=== PATIENT | female | born 1945 | race Caucasian/White ===

== ENCOUNTER → 2023-04-09 12:44 | Outpatient (REF) | payer MEDICARE, OTHER, SELFPAY | LOC: MRI 3T 12:44 | PROVIDERS: ATTENDING PHYSICIAN Orthopaedic Surgery; FAMILY PHYSICIAN Internal Medicine | DX: M25.561 Pain in right knee (principal) | CPT/HCPCS: 73721 ==

== ENCOUNTER → 2023-04-25 13:30 | Outpatient (REF) | payer MEDICARE, OTHER, SELFPAY ==
[2023-04-25 14:24] LABS: Blood Urea Nitrogen 26 mg/dl (7-17); Carbon Dioxide 29 mmol/L (22-30); Chloride 93 mmol/L (98-107); Glucose 91 mg/dl (70-99); Potassium 4.2 mmol/L (3.5-5.1); Sodium 128 mmol/L (135-145); eGFR > 60.00
[2023-04-25 14:30] LABS: NT-proBNP 1670 pg/ml
== END ==
LOC: REG 13:30
PROVIDERS: ATTENDING PHYSICIAN Internal Medicine Cardiovascular Disease; FAMILY PHYSICIAN Internal Medicine
DX: I42.8 Other cardiomyopathies (principal); I10 Essential (primary) hypertension; R79.89 Other specified abnormal findings of blood chemistry
CPT/HCPCS: 36415; 80048; 83880

== ENCOUNTER → 2023-04-27 13:55 | Outpatient (REF) | payer MEDICARE, OTHER, SELFPAY ==
[2023-04-27 16:24] LABS: Blood Urea Nitrogen 30 mg/dl (7-17); Calcium 8.7 mg/dl (8.4-10.2); Carbon Dioxide 28 mmol/L (22-30); Chloride 93 mmol/L (98-107); Glucose 83 mg/dl (70-99); Potassium 3.9 mmol/L (3.5-5.1); Sodium 127 mmol/L (135-145); eGFR 56.95
== END ==
LOC: REG 13:55
PROVIDERS: ATTENDING PHYSICIAN Internal Medicine Cardiovascular Disease; FAMILY PHYSICIAN Internal Medicine
DX: I10 Essential (primary) hypertension (principal); I42.8 Other cardiomyopathies
CPT/HCPCS: 36415; 80048

== ENCOUNTER 2023-05-14 13:29 | Emergency (ER) | payer MEDICARE, OTHER, SELFPAY ==
[2023-05-14 13:39] VITALS: BP 116/74
[2023-05-14 16:00] VITALS: BP 141/75
[2023-05-14 16:07] LABS: % Basophils 0.8 % (0-2); % Eosinophils 0.8 % (0-6); % Immature Granulocytes 0.3 % (0-0.5); % Lymphocytes 27.6 % (20.5-51.1); % Monocytes 9.9 % (1.7-9.3); % Neutrophils 60.6 % (42.2-75.2); Absolute Basophils 0.1 10^3/uL (0-0.2); Absolute Eosinophils 0.1 10^3/uL (0-0.7); Absolute Lymphocytes 1.8 10^3/uL (1.2-3.4); Absolute Monocytes 0.6 10^3/uL (0.1-0.6); Absolute Neutrophils 3.9 10^3/uL (1.4-6.5); Hematocrit 26.5 % (37.0-47.0); Hemoglobin 9.4 g/dL (12.0-16.0); Mean Corp Hgb Conc. 35.5 g/dL (33.0-37.0); Mean Corpuscular Hgb 33.3 pg (27.0-31.0); Mean Platelet Volume 9.2 fL (7.4-10.4); Nucleated Red Blood Cells % 0 %; Platelet Count 331 10^3/uL (130-400); Red Blood Cell Count 2.82 10^6/uL (4.20-5.40); Red Cell Dist. Width 14.4 % (11.5-14.5); White Blood Cell Count 6.5 10^3/uL (4.8-10.8)
[2023-05-14 16:26] LABS: NT-proBNP 1820 pg/ml
[2023-05-14 16:28] LABS: Blood Urea Nitrogen 26 mg/dl (7-17); Calcium 8.8 mg/dl (8.4-10.2); Carbon Dioxide 25 mmol/L (22-30); Chloride 95 mmol/L (98-107); Glucose 103 mg/dl (70-99); Potassium 3.7 mmol/L (3.5-5.1); Sodium 128 mmol/L (135-145); eGFR > 60.00
--- NOTE | 2023-05-14 17:10 | ED.GENMED ---
History of Present Illness
General
Chief Complaint: Skin Problem
Source: patient
Exam Limitations: none
Time Seen by Provider: 05/14/23 14:01
Travel History
Have you had any contact with someone who has COVID-19?: No
Do you have any symptoms of coronavirus? Fever > 100 degrees, chills, cough, shortness of breath, sore throat, loss of taste or smell, muscle aches, or headache?: No
History of Present Illness
History of Present Illness:
Patient had a fall in the [facility] in March. Since then she has had some increased leg swelling bilaterally. She has been followed by her respiratory support technician and primary care physician. Diuretic dose was increased this week. She denies chest pain or
shortness of breath. She is concerned about a cellulitis. Her acupuncture physician recommended evaluation today after looking at her legs.
Past History
Past History
ED Past Medical History: Arrthythmia (afib-no anticoags), CAD, CHF, HTN and Hypercholesterolemia
ED Past Surgical History: Cardiac (ablations)
Social History
Employment: Retired
Review of Systems
Review of Systems
All Other Systems: Not applicable
Constitutional: Denies fever
Respiratory: Denies trouble breathing
Cardiac: Denies chest pain
Phy Exam
Physical Exam
Physical Exam:
GENERAL: Alert and oriented in no apparent distress
EYE: Orbits normal.
NECK: Supple
CARDIAC: Regular rate and rhythm without any obvious murmurs.
LUNGS: Clear breath sounds,normal
ABDOMEN: Soft, without focal tenderness or distention
NEUROLOGICAL: Alert and oriented , grossly non-focal
SKIN: Warm and dry, no rash or lesion, no discoloration, skin intact.
MUSCULOSKELETAL: Moderate bilateral lower extremity edema but minimal pitting. Some tightness to both calves. Minimal erythema to the left lower leg. Good distal pulses and color.
PSYCH: Normal and appropriate interaction.
Course
Orders/Labs/Results
Orders:
Orders
05/14/23 14:19
US Periph Venous LOWER Ext Zackary Urgent
Comment:
Reason For Exam: swelling
05/14/23 14:20
CR Chest - 2 Views Urgent
Comment:
Reason For Exam: bilateral leg swelling
05/14/23 16:00
Basic Metabolic Panel Urgent
Complete Blood Count/With Diff Urgent
NT-proBNP Urgent
05/14/23 17:58
Doxycycline [Vibramycin] 100 mg PO NOW STA
Abnormal Lab Results
05/14/23
16:00
RBC 2.82 L 10^6/uL
(4.20-5.40)
Hgb 9.4 L g/dL
(12.0-16.0)
Hct 26.5 L %
(37.0-47.0)
MCH 33.3 H pg
(27.0-31.0)
Monocytes % 9.9 H %
(1.7-9.3)
Sodium 128 L mmol/L
(135-145)
Chloride 95 L mmol/L
(98-107)
BUN 26 H mg/dl
(7-17)
Glucose 103 H mg/dl
(70-99)
05/14/23 16:00
05/14/23 16:00
Vital Signs
Initial and Last Documented VS:
Initial Vital Signs
Temp Pulse Resp BP Pulse Ox
97.5 F 71 18 116/74 98
05/14/23 13:39 05/14/23 13:39 05/14/23 13:39 05/14/23 13:39 05/14/23 13:39
Last Documented Vital Signs
Temp Pulse Resp BP Pulse Ox
97.5 F 71 18 116/74 98
05/14/23 13:39 05/14/23 13:39 05/14/23 13:39 05/14/23 13:39 05/14/23 13:39
*Radiology
Radiology exam reviewed: radiology read reviewed (Small effusion/CHF) and other (Negative leg ultrasounds)
*Pulse Oximetry
Patient hypoxic: no
*Critical Care Note
Total Time (30-74mins, 75-104mins- exclusive of procedures): Not Applicable
Update Note
Update Note:
Clinically patient is not in any florid CHF. She increased her diuretic dose this week. Do not feel pushing the diuretic dose further at this time is warranted. She is anemic and a rectal exam will be done. Doubt cellulitis although patient is
very concerned about this and with the minimal erythema we will cover her with antibiotics.
Patient with multiple issues.
1. New anemia. Drop in hemoglobin about 2 g from late last year. However clinically stable not describing melanotic or dark school and rectal exam with light stool testing negative. Warrants follow-up
2. Hyponatremia.... Stable. No acute changes in management but recheck and follow-up
3. Mild CHF. Patient is clinically in no distress ambulated without difficulty or shortness of breath. proBNP is stable. Patient had an increased dose of diuretic this week. Would not tar heat exchanger cleaner at this time
4. Redness to lower extremities. Clinically doubt cellulitis more likely dermatitis from the edema however patient would feel much more comfortable with antibiotic coverage which is not unreasonable.
ED Attending Note
-
Portions of this chart may have been created with voice recognition software.� Occasional wrong word or��sound alike� substitutions may have occurred due to the inherent limitations of voice recognition software.
Discharge Plan
Departure
Discharge Problem:
Lower extremity erythema, Lower extremity edema/mild CHF, Hyponatremia, Anemia
Instructions: Dependent Edema (DC), Skin Rash (DC), Hyponatremia (DC), Normocytic Normochromic Anemia (DC)
Prescriptions:
New
doxycycline hyclate 100 mg capsule
100 mg PO BID 10 Days Qty: 20 0RF
No Action
ascorbic acid (vitamin C) [Vitamin C] 1,000 MG tablet
1,000 mg PO DAILY
lecithin 1,200 MG capsule
1,200 mg PO DAILY
vitamin B complex [Balanced B-100] 1 TAB tablet
1 tab PO DAILY
magnesium 250 MG tablet
250 mg PO BID
selenium 100 MCG tablet
100 mcg PO DAILY
Ca-D3-mag ea-rmfx-dkz-moy-bor [Calcium 600-D3 Plus (mag-zinc)] 1 EACH tablet
1 ea PO DAILY
L.acidoph, paracasei,B. lactis 1 EACH capsule
1 ea PO DAILY
sour monroe extract [Tart Monroe Extract] 1,000 MG capsule
1,000 mg PO BID
cranberry conc-ascorbic acid 1 EACH capsule
4,200 mg PO BID
metoprolol succinate 25 MG tablet extended release 24 hr
12.5 mg PO QPM Qty: 0 0RF
rivaroxaban [Xarelto] 20 MG tablet
20 mg PO QPM Qty: 0 0RF
Rx Instructions:
Take your dose today at 6pm 07/21
Referrals:
Robb Rubio MD [Family Provider] - Follow up in 2-3 days
Activity Restrictions/Additional Instructions:
The antibiotic prescription was called into your pharmacy
Recommend repeat blood count and sodium level done late this week through your primary physician
Interventions
Interventions:
*General Assessment Last Done: 05/14/23 14:47
*ED COVID-19 Vaccine History Last Done: 05/14/23 13:39
[2023-05-14 18:22] VITALS: BP 153/80
[2023-05-14] MEDS: VIBRAMYCIN 100 MG PO (18:29)
== END 2023-05-14 19:30 | disposition home or self-care (01) ==
LOC: EMR 13:29
PROVIDERS: EMERGENCY PHYSICIAN Emergency Medicine; FAMILY PHYSICIAN Internal Medicine
DX: E87.1 Hypo-osmolality and hyponatremia (principal); D64.9 Anemia, unspecified; R60.0 Localized edema; W19.XXXA Unspecified fall, initial encounter; I11.0 Hypertensive heart disease with heart failure; I50.9 Heart failure, unspecified; I48.91 Unspecified atrial fibrillation; I25.10 Atherosclerotic heart disease of native coronary artery without angina pectoris; E78.00 Pure hypercholesterolemia, unspecified; Z79.01 Long term (current) use of anticoagulants; Z88.3 Allergy status to other anti-infective agents; Z88.0 Allergy status to penicillin; Z88.8 Allergy status to other drugs, medicaments and biological substances
CPT/HCPCS: 99284; 71046; 80048; 83880; 85025; 93970

== ENCOUNTER 2023-05-17 22:03 | Inpatient (IN) | payer MEDICARE, OTHER, SELFPAY ==
[2023-05-17] VITALS (8 sets, daily range): BP systolic 139–183; BP diastolic 57–93; BMI 22.4
--- NOTE | 2023-05-17 14:47 | ED.GENMED ---
History of Present Illness
General
Chief Complaint: Cardiac Symptoms
Source: patient
Exam Limitations: none
Time Seen by Provider: 05/17/23 14:28
Nursing documentation reviewed up to this point in time: agreed with
Travel History
Have you had any contact with someone who has COVID-19?: No
Do you have any symptoms of coronavirus? Fever > 100 degrees, chills, cough, shortness of breath, sore throat, loss of taste or smell, muscle aches, or headache?: No
History of Present Illness
History of Present Illness:
Patient is a 78-year-old female with past medical history of cardiomyopathy celiac disease c Takotsubo cardiomyopathy pancreatitis 2006 hypertension nephrosis as a child hyperlipidemia paroxysmal A-fib sent in by Dr. Kiera Diaz for admission
for acute on chronic heart failure with preserved ejection fraction. Patient was called and: No reports that patient has had abdominal pain with bloating and fullness and new pleural effusion new anemia and worsening hyponatremia. It is documented
in the past she has responded well to diuretic therapy but this is not the case currently. They are requesting admission to the hospital with nephrology consult due to worsening hyponatremia and recommend GI for abdominal pain and bloating and new
onset anemia. Concern for possible malignancy. Patient presents awake alert. She does complain of increasing lower extremity swelling and pain in her legs because of the swelling. She does complain of increased dyspnea on exertion. She feels
very tired and fatigued. She denies any chest pain shortness of breath.
In review of records patient recently had a chest x-ray as an outpatient May 13, 3 days ago which shows COPD mild congestive heart failure small to moderate left and right trace pleural effusion
Past History
Past History
ED Past Medical History: Arrthythmia (afib-no anticoags), CAD, CHF, HTN and Hypercholesterolemia
ED Past Surgical History: Cardiac (ablations)
Social History
Personal:
Living: with family
Employment: Retired
Review of Systems
Review of Systems
Allergies reviewed?: Yes
All Other Systems: ROS reviewed and negative except as documented in HPI and ROS
Constitutional: Reports fatigue
EENT: Reports no symptoms
Respiratory: Reports trouble breathing and other (+ GILLIAM )
Cardiac: Reports no symptoms
ABD/GI: Reports no symptoms
: Reports no symptoms
Musculoskeletal: Reports other (increased l/e swelling )
Skin: Reports no symptoms
Psychiatric: Reports no symptoms
Phy Exam
General Physical Exam
General Presentation: no apparent distress
General age: appears stated age
General Skin: warm and dry
General Habitus: elderly
General Hydration: appears well hydrated
ENT Exam
ENT Exam: EOMI
Cardiovascular Exam
Cardiovascular Exam: regular rate/rhythm, no murmur and normal peripheral pulses
Pulmonary Exam
Pulmonary Exam: other (dec b/l )
Neurological Exam
Neurological Exam: alert and oriented x3
Musculoskeletal Exam
Musculoskeletal Exam: other (Patient has bilateral lower extremity pitting edema up to thighs)
Skin Exam
Skin Exam: normal color and warm/dry
Course
Orders/Labs/Results
Orders:
Orders
05/17/23 14:39
Cardiac Monitoring- Treatment ONCE
IV Insert/Care/Rem.- Treatment PRN
05/17/23 15:02
Complete Blood Count/With Diff Urgent
Comprehensive Metabolic Panel Urgent
Ferritin Routine
Comment: ADD ON
Iron Urgent
Comment: ADD ON
Lactic Acid Urgent
Pro-BNP [NT-proBNP] Urgent
Total Iron Binding Urgent
Comment: ADD ON
Troponin I Urgent
Blood Culture Q30M
LUISITO Source: Blood/Venous
Specimen Description:
Date Specimen was Collected: 05/17/23
Time Specimen was Collected: 14:49
05/17/23 15:21
Blood Culture Q30M
LUISITO Source: Blood/Venous
Specimen Description:
Date Specimen was Collected: 05/17/23
Time Specimen was Collected: 14:49
05/17/23 15:57
Chest [CR Chest - 2 Views ] Urgent
Comment:
Reason For Exam: sob
05/17/23 16:29
Furosemide [Lasix] 40 mg IV NOW STA
05/17/23 16:45
Electrocardiogram (*1) Stat
Reason for Study: Other
Other Reason for Exam: chest pain
EKG- Treatment ONCE
05/17/23 16:54
Add On- LAB Routine
Tests Added?: iron studies (TIBC, % sat, serum iron, ferritin)
05/18/23 06:00
Echo 2D MMode Color/Doppler IN AM
Reason for Study: CHF, history of takotsubo
Abnormal Lab Results
05/17/23
15:02
RBC 3.15 L 10^6/uL
(4.20-5.40)
Hgb 10.5 L g/dL
(12.0-16.0)
Hct 30.9 L %
(37.0-47.0)
MCH 33.3 H pg
(27.0-31.0)
RDW 14.6 H %
(11.5-14.5)
Monocytes % 9.5 H %
(1.7-9.3)
Sodium 129 L mmol/L
(135-145)
Chloride 95 L mmol/L
(98-107)
BUN 34 H mg/dl
(7-17)
Albumin 3.4 L g/dl
(3.5-5.0)
05/17/23 15:02
05/17/23 15:02
Vital Signs
Initial and Last Documented VS:
Initial Vital Signs
Temp Pulse Resp BP Pulse Ox
97.9 F 73 18 183/76 100
05/17/23 13:59 05/17/23 13:59 05/17/23 13:59 05/17/23 13:59 05/17/23 13:59
Last Documented Vital Signs
Temp Pulse Resp BP Pulse Ox
97.9 F 65 13 176/65 96
05/17/23 13:59 05/17/23 16:00 05/17/23 16:00 05/17/23 16:00 05/17/23 16:00
MDM/Problems Addressed
Differential Diagnosis Includes:
Not limited to congestive heart failure, hyponatremia electrolyte abnormality
MDM/Problems Addressed:
As documented patient is an 78-year-old female with chronic CHF with preserved ejection fraction with increasing lower extremity swelling abdominal bloating fullness increased dyspnea on exertion. Patient was sent by cardiology today. She presents
awake alert no acute distress patient was seen by cardiology. Will give dose of Lasix now.
Patient denies any fevers and is afebrile with a normal white count hemoglobin mildly low at 10.5 improved from prior. Sodium is low at 129 has been in the high 120s since April 25. No complaints of chest pain, unremarkable trop. BNP is
elevated at 2730 which is higher than results from AprilMay 13
*Radiology
Radiology exam reviewed: radiology read reviewed
*Pulse Oximetry
Patient hypoxic: no
*EKG
Interpreted by ED Provider?: Yes
Heart Rate: 75
Rate: normal
Rhythm: sinus
Ischemia: non-specific ST changes
*Critical Care Note
Total Time (30-74mins, 75-104mins- exclusive of procedures): Not Applicable
Data Reviewed
Review of Other/Old Records Reveals: Radiology Studies
Source: patient
Patient Management
Discussion with other providers: Tile Edger (pt alyssa by cardiology , [place])
ED Attending Note
-
Portions of this chart may have been created with voice recognition software.� Occasional wrong word or��sound alike� substitutions may have occurred due to the inherent limitations of voice recognition software.
Discharge Plan
Departure
Patient Disposition: Admit
Date of Disposition: 05/17/23
Time of Disposition: 16:45
Admit to: Telemetry
Admit to doctor: hospitalist
Presentation/result/management discussed w/ accepting MD/DO: Hospitalist
Patient with high blood pressure during this ER visit?: Yes
Condition: Fair
Covid-19: Not Applicable
Discharge Problem:
Congestive heart failure (CHF), Bilateral edema of lower extremity, Acute hyponatremia
Prescriptions:
No Action
ascorbic acid (vitamin C) [Vitamin C] 1,000 MG tablet
1,000 mg PO DAILY
Patient Comments:
05/17/2023, has not taken since starting abx.
lecithin 1,200 MG capsule
1,200 mg PO DAILY
Patient Comments:
05/17/2023, has not taken since starting abx.
magnesium 250 MG tablet
250 mg PO HS
Patient Comments:
05/17/2023, has not taken since starting abx.
selenium 100 MCG tablet
100 mcg PO DAILY
Patient Comments:
05/17/2023, has not taken since starting abx.
Ca-D3-mag vy-dkzv-vex-moy-bor [Calcium 600-D3 Plus (mag-zinc)] 1 EACH tablet
1 tab PO DAILY
Patient Comments:
05/17/2023, has not taken since starting abx.
Tart Monroe Extract 1,000 MG capsule
1,000 mg PO BID
Patient Comments:
05/17/2023, has not taken since starting abx.
cranberry conc-ascorbic acid 1 EACH capsule
4,200 mg PO BID
Patient Comments:
05/17/2023, has not taken since starting abx.
metoprolol succinate 25 MG tablet extended release 24 hr
12.5 mg PO QPM Qty: 0 0RF
furosemide 40 mg Tablet
40 mg PO HS
hydralazine 25 mg Tablet
25 mg PO BID
aspirin 81 mg Tablet,Delayed Release (Dr/Ec)
81 mg PO HS
vitamin B complex Tablet
1 tab PO DAILY
Patient Comments:
05/17/2023, has not taken since starting abx.
doxycycline hyclate 100 mg Tablet
100 mg PO BID
Patient Comments:
05/17/2023, pt. filled this med. on 05/15/2023 and is instructed to take one tablet BID for 10 days.
pitavastatin calcium 1 mg Tablet
1 mg PO MOWEFR@0800
Magnesium + Calcium + Zinc
2 tab PO HS
Patient Comments:
05/17/2023, has not taken since starting abx.
Referrals:
Robb Rubio MD [Family Provider] -
Interventions
Interventions:
*Risk Screen - Suicide Last Done: 05/17/23 15:05
*General Assessment Last Done: 05/17/23 15:05
*Neglect/Abuse Screening Last Done: 05/17/23 15:05
ED- Fall Risk Assessment Last Done: 05/17/23 15:05
*ED COVID-19 Vaccine History Last Done: 05/17/23 15:41
ED- Pulmonary Assessment Last Done: 05/17/23 15:05
ED- Cardiac Assessment Last Done: 05/17/23 15:05
--- NOTE | 2023-05-17 14:49 | EDRN ---
Ismael BATES in room w/ pt.
[2023-05-17 15:16] LABS: % Basophils 0.8 % (0-2); % Eosinophils 0.8 % (0-6); % Immature Granulocytes 0.5 % (0-0.5); % Lymphocytes 22.7 % (20.5-51.1); % Monocytes 9.5 % (1.7-9.3); % Neutrophils 65.7 % (42.2-75.2); Absolute Basophils 0.1 10^3/uL (0-0.2); Absolute Eosinophils 0.1 10^3/uL (0-0.7); Absolute Lymphocytes 1.5 10^3/uL (1.2-3.4); Absolute Monocytes 0.6 10^3/uL (0.1-0.6); Absolute Neutrophils 4.3 10^3/uL (1.4-6.5); Hematocrit 30.9 % (37.0-47.0); Hemoglobin 10.5 g/dL (12.0-16.0); Mean Corpuscular Hgb 33.3 pg (27.0-31.0); Mean Corpuscular Volume 98.1 fL (81.0-99.0); Mean Platelet Volume 9.3 fL (7.4-10.4); Nucleated Red Blood Cells % 0 %; Platelet Count 358 10^3/uL (130-400); Red Blood Cell Count 3.15 10^6/uL (4.20-5.40); Red Cell Dist. Width 14.6 % (11.5-14.5); White Blood Cell Count 6.5 10^3/uL (4.8-10.8)
[2023-05-17 15:25] LABS: Lactic Acid 0.7 mmol/L (0.7-2.0)
[2023-05-17 15:38] LABS: ALT (SGPT) 19 U/L (0-35); AST (SGOT) 36 U/L (14-36); Albumin 3.4 g/dl (3.5-5.0); Alkaline Phosphatase 99 U/L (38-126); Blood Urea Nitrogen 34 mg/dl (7-17); Calcium 8.7 mg/dl (8.4-10.2); Carbon Dioxide 29 mmol/L (22-30); Chloride 95 mmol/L (98-107); Estimated Creatinine Clearance 43 ml/min; Glucose 97 mg/dl (70-99); NT-proBNP 2730 pg/ml; Potassium 3.7 mmol/L (3.5-5.1); Sodium 129 mmol/L (135-145); Total Bilirubin 0.4 mg/dl (0.2-1.3); Total Protein 7.3 g/dl (6.3-8.2); Troponin I 0.022 ng/ml; eGFR 56.95
--- NOTE | 2023-05-17 16:27 | W.PN.CARDCBS ---
Addendum entered and electronically signed by Kiera Diaz MD 05/17/23 17:24:
I saw and examined the patient.
The Industrial Conveyor Belt Repairer's note was reviewed and I agree with the note.
Please refer to office note.
Comment: She presented to the office with shortness of breath and worsening lower extremity edema in the setting of failing oral diuretics and hyponatremia. In addition she has abdominal bloating and new anemia.
Await echo. Continue diuresis. Follow labs.
Rule out ascites.
Exclude nephrotic type syndrome given distant history of nephrosis. Would consider CT scan of chest abdomen and pelvis given features are a bit atypical to exclude malignancy especially in the setting of new anemia.
Heme test stools. Check iron studies.
Original Note:
Today's Communication / Plan
-
IV diuresis
echo in AM
consider eval for thoracentesis pending repeat CXR
evaluate anemia, iron studies ordered
follow hypoNa with diuresis
PT/OT
Impression / Plan
-
Primary Financial Services Director: Dr. Kiera Diaz
Assessment:
Presentation with LE edema, GILLIAM, abd bloating
Acute on chronic HFpEF
Anemia
Hyponatremia
LE cellulitis diagnosed 05/14/23
R knee and L wrist fractures 03/2023 while in [facility]
History of paroxysmal atrial fibrillation s/p PVI 2016
History of takotsubo CM with recovery in EF
HTN
HLD
History of hydronephrosis as child
History of lung nodule
Celiac disease
Insomnia
ECHO 10/25/22: EF 63%, stage II diastolic dysfunction, mild to moderate MR, mild TR, PAP 44 mmHg
Plan:
-Patient was seen in cardiology office today due to worsening lower extremity edema, shortness of breath, abdominal bloating, and felt to be in acute heart failure and referred to the ER for further evaluation. proBNP is the highest it is ever been
at 2730.
-Chest x-ray pending from 05/16, x-ray from 05/13 with small to moderate left effusion and trace right effusion. Pending results, consider evaluation for thoracentesis through interventional radiology
-She did not respond to increase in OP diuretic dosing after ER visit 05/13. due to appts today, did not take her lasix this AM. 40 mg IV Lasix to be given in the emergency room. She is on 40 mg p.o. Lasix daily as an outpatient. consider GI eval if
abd bloating not improved post diuresis
-CHF education
-Last echo from 10/2022 with results as above, will repeat
-EKG pending. follow on tele while admitted
-she remains on doxycycline, started by ER 05/14/23 for possible cellulitis. Peripheral US negative for DVT 05/14/23.
-Workup of anemia per primary service, improving at 10.5 on 05/16, was 9.5 on 05/13. She has tested heme-negative in the ER 05/13 as well as in primary care physician's office. Check iron studies
-Workup of hyponatremia per primary service. Follow with diuresis, consider nephrology evaluation
-She has been completing PT/OT as an outpatient after recent knee and wrist fractures. Continue
-d/w ER CELL OPERATOR
Progress Note - Financial Services Director
Subjective
Date of Service: May 17, 2023
reports GILLIAM, LE edema, abd bloating.
Objective
Labs:
05/17/23 15:02
05/17/23 15:02
Labs
Hgb 10.5 g/dL (12.0-16.0) L 05/17/23 15:02
Hct 30.9 % (37.0-47.0) L 05/17/23 15:02
Plt Count 358 10^3/uL (130-400) 05/17/23 15:02
Sodium 129 mmol/L (135-145) L 05/17/23 15:02
Potassium 3.7 mmol/L (3.5-5.1) 05/17/23 15:02
BUN 34 mg/dl (7-17) H 05/17/23 15:02
Creatinine 1.0 mg/dL (0.6-1.0) 05/17/23 15:02
Glucose 97 mg/dl (70-99) 05/17/23 15:02
Troponins
05/17/23
15:02
Troponin I 0.022
Vital Signs and I&O:
Vital Signs
Temp Pulse Resp BP Pulse Ox
97.9 F 65 13 176/65 96
05/17/23 13:59 05/17/23 16:00 05/17/23 16:00 05/17/23 16:00 05/17/23 16:00
Vital Signs
Temp Pulse Resp BP Pulse Ox
97.9 F 65 13 176/65 96
05/17/23 13:59 05/17/23 16:00 05/17/23 16:00 05/17/23 16:00 05/17/23 16:00
Physical Exam
Physical Exam
GEN: No distress, awake, alert, oriented x3
HEENT: supple, anicteric, mmm, eomi
LUNGS: decreased BS LLB, no wheezes
CV: Reg, S1/S2, no murmur
ABD: soft, BS+, NT/ND
EXT: No cyanosis, clubbing. 3+ edema of B/L LE
NEURO: Gross non-focal
SKIN: Warm, pink, dry. No rash. mild erythema of B/L LE
[2023-05-17] MEDS: LASIX 40 MG IV (17:15)
[2023-05-17 17:42] LABS: Iron 45 ug/dl (37-170)
--- NOTE | 2023-05-17 17:45 | EDRN ---
Pt voided in BR (pt states a large amount) but missed the receptacle to measure the quantity voided.
[2023-05-17 17:51] LABS: Percent Saturation 15 % (20-50); Total Iron Binding Capacity 289 ug/dl (265-497)
[2023-05-17 18:12] LABS: Ferritin 27.9 ng/ml (11.1-264.0)
--- NOTE | 2023-05-17 21:46 | HPS.HSE ---
Family Physician
-
Family Physician: Kodak Rubio
Chief Complaint
-
shortness of breath
History of Present Illness
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 Qureshi
S[place]e for CHF exacerbation. Patient has been having increased lower extremity edema and increased shortness of breath on exertion progressing for the past 2 months. She has gained 15 pounds since that time. She has dry cough but denies any
chest pain or dizziness.
She is also had increased abdominal distention and bloating and fullness which is improving with IV Lasix. She denies any nausea or vomiting, blood in the stool or black stool. She has been following with Dr. Luis for celiac disease.
3 days ago she came to the emergency room for bilateral lower extremity swelling particularly the left leg with erythema of the left leg. She was diagnosed with cellulitis and started on doxycycline with improvement in the erythema.
She was drinking alcohol but stopped drinking over the past month. Denies any smoking.
Medical History
Past Medical History
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
Past Surgical History: Reports None
Social History
Tobacco: Non-smoker
Alcohol: Daily
Drug: None
Family History
Family History: Not pertinent
Allergies / Home Medications
Allergies reflects when Allergies were last updated in [employer].
Home Medications with original date entered in [employer]
Allergy/Medication List:
Allergies
Allergy/AdvReac Type Severity Reaction Status Date / Time
Antihistamines Allergy Unknown Verified 05/14/23 13:45
Cephalosporins Allergy Rash Verified 05/14/23 13:45
diphenhydramine Allergy Unknown Verified 05/14/23 13:45
hydrochlorothiazide Allergy Rash Verified 05/14/23 13:45
penicillin G Allergy Rash Verified 05/14/23 13:45
penicillin V Allergy Rash Verified 05/14/23 13:45
Penicillins Allergy Rash Verified 05/14/23 13:45
Home Medications
Ca 600 mg-D3 20 mcg-mag oxide 50 rh-Fd-lcxqya-manganese-boron tablet (Calcium 600-D3 Plus (mag-zinc)) 1 tab PO DAILY 07/20/16
ascorbic acid (vitamin C) 1,000 mg tablet (Vitamin C) 1,000 mg PO DAILY 07/20/16
cranberry concentrate-ascorbic acid 4,200 mg-20 mg capsule 4,200 mg PO BID 07/20/16
lecithin 1,200 mg capsule 1,200 mg PO DAILY 07/20/16
magnesium 250 mg tablet 250 mg PO HS 07/20/16
selenium 100 mcg tablet 100 mcg PO DAILY 07/20/16
sour monroe extract 1,000 mg capsule (Tart Monroe Extract) 1,000 mg PO BID 07/20/16
metoprolol succinate 25 mg tablet,extended release 24 hr 12.5 mg PO QPM ##0 07/21/16
Magnesium + Calcium + Zinc 2 tab PO HS 05/17/23
aspirin 81 mg tablet,delayed release 81 mg PO HS 05/17/23
doxycycline hyclate 100 mg tablet 100 mg PO BID 05/17/23
furosemide 40 mg tablet 40 mg PO HS 05/17/23
hydralazine 25 mg tablet 25 mg PO BID 05/17/23
pitavastatin calcium 1 mg tablet 1 mg PO MOWEFR@0800 05/17/23
vitamin B complex 1 tab PO DAILY 05/17/23
Review of Systems
-
History Source: Patient
A 12 point ROS was completed and negative except as noted: Yes
Constitutional: Reports No Symptoms
EENT: Reports No Symptoms
Respiratory: Reports See HPI
Cardiac: Reports See HPI
Abdomen/GI: Reports See HPI
: Reports No Symptoms
Musculoskeletal: Reports No Symptoms
Skin: Reports No Symptoms
Neurological: Reports No Symptoms
Endocrine: Reports No Symptoms
Hematologic/Lymphatic: Reports No Symptoms
Psych: Reports No Symptoms
Physical Exam
Vital Signs
Vital Signs
Temp Pulse Resp BP Pulse Ox
97.9 F 70 12 140/87 99
05/17/23 13:59 05/17/23 21:15 05/17/23 21:15 05/17/23 21:00 05/17/23 20:15
Physical Exam
General: Well Developed, Well Nourished and No Apparent Distress
HEENT: NormoCephalic, Moist mucous membranes and Atraumatic
Respiratory: Clear
Cardiac: S1/S2, Regular Rhythm and Peripheral Edema; No Murmur or Rub
GI: Soft, Non Tender, Non Distended and Normal Bowel Sounds; No Organomegaly
Rectal: Deferred by Provider
Musculoskeletal: No Clubbing, No Cyanosis and No Edema
Skin: No Rash
Neuro: Nonfocal/grossly intact
Laboratory Results
-
05/17/23 15:02
05/17/23 15:02
Laboratory Results
Lactic Acid 0.7 mmol/L (0.7-2.0) 05/17/23 15:02
Total Bilirubin 0.4 mg/dl (0.2-1.3) 05/17/23 15:02
AST 36 U/L (14-36) 05/17/23 15:02
ALT 19 U/L (0-35) 05/17/23 15:02
Alkaline Phosphatase 99 U/L (38-126) 05/17/23 15:02
Troponin I 0.022 ng/ml 05/17/23 15:02
Data Reviewed
-
Lab Data: Labs Reviewed by me
Old Records: Reviewed
Impression/Plan
-
IMPRESSION:
PLAN:
# Acute on chronic HFpEF exacerbation with pleural effusion/ascites
# Mild to moderate left pleural effusion
# History of Takotsubo cardiomyopathy
-Chest x-ray shows mild to moderate left and trace right pleural effusion
-Check I's and O's and daily weights
-40 IV Lasix daily
-Check echo
-Cardiology following
-IR consulted for thoracentesis
-Abdominal distention improving with diuresis, consider abdominal imaging to evaluate for ascites if persistent
# Chronic macrocytic anemia likely due to anemia of chronic disease
-Recently tested heme-negative in the ER on 05/13 as well as in primary care physician's office
-Hemoglobin relatively stable over the past 2 years and no suggestion of bleeding
-Hemoglobin stable 10.5
-Check Hemoccult, iron studies, B12, folate
# Mild chronic hyponatremia in the setting of CHF exacerbation
-Observe with diuresis
-Fluid restriction 40 ounces
# Resolving cellulitis of left lower extremity
-Negative for DVT on 05/13
-Currently on doxycycline which was started on 05/13
Paroxysmal atrial fibrillation
-Continue metoprolol
-Continue aspirin
Essential hypertension
-Continue hydralazine
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
Celiac disease
History of pancreatitis
Hyperlipidemia
-Continue statin
Full code
DVT prophylaxis�heparin
Cardiac diet
[2023-05-18] VITALS (12 sets, daily range): BP systolic 68–171; BP diastolic 35–82; BMI 20.2
[2023-05-18] MEDS: TOPROL XL 12.5 MG PO ×2 (00:21→18:08)
[2023-05-18] MEDS: VIBRAMYCIN 100 MG PO ×3 (00:21→20:35)
[2023-05-18] MEDS: MAG-TAB SR 84 MG PO ×2 (00:22→22:26)
[2023-05-18] MEDS: ASPIR LOW (ENTERIC COATED) 81 MG PO ×2 (00:22→22:25)
[2023-05-18 03:31] LABS: Folate > 20.0 ng/ml (2.76-20); Vitamin B12 881 pg/ml (239-931)
[2023-05-18 06:49] LABS: % Basophils 1.1 % (0-2); % Eosinophils 2.6 % (0-6); % Immature Granulocytes 0.2 % (0-0.5); % Lymphocytes 35.7 % (20.5-51.1); % Neutrophils 48.4 % (42.2-75.2); Absolute Basophils 0.1 10^3/uL (0-0.2); Absolute Eosinophils 0.2 10^3/uL (0-0.7); Absolute Monocytes 0.7 10^3/uL (0.1-0.6); Absolute Neutrophils 2.8 10^3/uL (1.4-6.5); Hematocrit 26.3 % (37.0-47.0); Hemoglobin 8.9 g/dL (12.0-16.0); Mean Corp Hgb Conc. 33.8 g/dL (33.0-37.0); Mean Corpuscular Hgb 33.2 pg (27.0-31.0); Mean Corpuscular Volume 98.1 fL (81.0-99.0); Mean Platelet Volume 9.7 fL (7.4-10.4); Nucleated Red Blood Cells % 0 %; Platelet Count 310 10^3/uL (130-400); Red Blood Cell Count 2.68 10^6/uL (4.20-5.40); Red Cell Dist. Width 14.4 % (11.5-14.5); White Blood Cell Count 5.7 10^3/uL (4.8-10.8)
[2023-05-18 07:36] LABS: ALT (SGPT) 14 U/L (0-35); AST (SGOT) 27 U/L (14-36); Albumin 2.4 g/dl (3.5-5.0); Alkaline Phosphatase 77 U/L (38-126); Blood Urea Nitrogen 29 mg/dl (7-17); Calcium 8.1 mg/dl (8.4-10.2); Carbon Dioxide 26 mmol/L (22-30); Chloride 103 mmol/L (98-107); Estimated Creatinine Clearance 48 ml/min; Glucose 92 mg/dl (70-99); Potassium 3.4 mmol/L (3.5-5.1); Sodium 131 mmol/L (135-145); Total Bilirubin 0.2 mg/dl (0.2-1.3); Total Protein 5.5 g/dl (6.3-8.2); eGFR > 60.00
[2023-05-18] MEDS: B COMPLEX w/VITAMIN C 1 CAPLET PO (08:03)
[2023-05-18] MEDS: OSCAL 500 + D 500 MG PO (08:06)
[2023-05-18] MEDS: APRESOLINE 25 MG PO ×2 (08:07→20:34)
[2023-05-18] MEDS: LIPITOR 10 MG PO (08:10)
[2023-05-18] MEDS: HEPARIN 5000 UNITS SC ×2 (08:11→20:35)
[2023-05-18] MEDS: LASIX 40 MG IV (08:12)
[2023-05-18] MEDS: VITAMIN C 1000 MG PO (08:21)
[2023-05-18] MEDS: KCL 40 MEQ PO (11:07)
--- NOTE | 2023-05-18 13:00 | W.PN.CARDCBS ---
Addendum entered and electronically signed by Brian Winkler MD 05/18/23 13:58:
I saw and examined the patient.
The Embedded Engineer's note was reviewed and I agree with the note.
Comment:
GEN: No distress, awake, Ox3
HEENT: supple, anicteric, mmm
LUNGS: scatt rhonchi
CV: Irreg, S1/S2, 1/6 syst LSB, no gallop
ABD: soft, BS+, NT/ND
EXT: +1 edema
NEURO: Gross non-focal
SKIN: No rash
Plan:
Clinically improving status postthoracentesis and with IV diuresis. Will check daily weights.
Echocardiogram today. Will evaluate fluid from thoracentesis.
Will discuss with medical team workup of hypoalbuminemia and history of pulmonary nodules.
Hyponatremia is improving with diuresis and now sodium up to 131. Creatinine normal at 0.9.
Original Note:
Today's Communication / Plan
-
continue IV lasix
awaiting fluid analysis from thoracentesis
echo pending
work up of anemia per primary service
with hypoNa/hypoalbuminemia, consider nephro eval
consider repeat CT with history of pulm nodules
Impression / Plan
-
Primary Packing Room Inspector: Dr. Kiera Diaz
Assessment:
Presentation with LE edema, GILLIAM, abd bloating
Acute on chronic HFpEF
Anemia
Hyponatremia
LE cellulitis diagnosed 05/14/23
R knee and L wrist fractures 03/2023 while in [facility]
History of paroxysmal atrial fibrillation s/p PVI 2016
History of takotsubo CM with recovery in EF
HTN
HLD
History of hydronephrosis as child
History of lung nodule
Celiac disease
Insomnia
Hypoalbuminemia
ECHO 10/25/22: EF 63%, stage II diastolic dysfunction, mild to moderate MR, mild TR, PAP 44 mmHg
Plan:
-I&Os negative overnight. weight not yet recorded today. continue IV lasix. she is on 40mg po daily as OP.
-replete K
-s/p L thoracentesis 05/17. await fluid analysis
-CHF education
-consider GI eval if abd bloating not improved post diuresis
-echo pending
-EKG SR with PACs. follow on tele. continue toprol
-could consider addition of SGLT2 inhibitor
-she remains on doxycycline, started by ER 05/14/23 for possible cellulitis. Peripheral US negative for DVT 05/14/23.
-Workup of anemia per primary service. She has tested heme-negative in the ER 05/13 as well as in primary care physician's office. Iron studies noted. defer work up to primary service
-Workup of hyponatremia per primary service. Also with hypoalbuminemia, 2.4 on 05/17. Follow with diuresis, consider nephrology evaluation
-she had RLL pulm nodules noted on CT in 2021, which have not been followed with repeat CT imaging. in setting of new anemia, hyponatremia, would consider repeat CT scan
-She has been completing PT/OT as an outpatient after recent knee and wrist fractures. Continue
Progress Note - Packing Room Inspector
Subjective
Date of Service: May 18, 2023
improving with diuresis.
Objective
Labs:
05/18/23 06:32
05/18/23 06:32
Labs
Hgb 8.9 g/dL (12.0-16.0) L 05/18/23 06:32
Hct 26.3 % (37.0-47.0) L 05/18/23 06:32
Plt Count 310 10^3/uL (130-400) 05/18/23 06:32
Sodium 131 mmol/L (135-145) L 05/18/23 06:32
Potassium 3.4 mmol/L (3.5-5.1) L 05/18/23 06:32
BUN 29 mg/dl (7-17) H 05/18/23 06:32
Creatinine 0.9 mg/dL (0.6-1.0) 05/18/23 06:32
Glucose 92 mg/dl (70-99) 05/18/23 06:32
Troponins
05/17/23
15:02
Troponin I 0.022
Vital Signs and I&O:
Vital Signs
Temp Pulse Resp BP Pulse Ox
97.9 F 70 16 138/62 100
05/17/23 13:59 05/18/23 09:56 05/18/23 09:56 05/18/23 09:56 05/18/23 09:56
Vital Signs
Temp Pulse Resp BP Pulse Ox
97.9 F 70 16 138/62 100
05/17/23 13:59 05/18/23 09:56 05/18/23 09:56 05/18/23 09:56 05/18/23 09:56
Intake & Output
05/16/23 05/17/23 05/18/23 05/19/23
07:59 07:59 07:59 07:59
Output Total 900 / 900
Balance -900 / -900
--- NOTE | 2023-05-18 13:38 | W.PN.HOSP.TC ---
Today's Communication/Plan
-
Thoracentesis
IV diuresis
Echocardiogram
Assessment / Plan
Assessment / Plan
Impression:
Presentation with exertional dyspnea, worsening lower extremity edema and abdominal girth
Acute CHF preserved EF
Left pleural effusion.
Hypervolemic hyponatremia
Hypokalemia
Left lower extremity cellulitis diagnosed 05/14/2023
Conditions prior to admission:
Chronic CHF preserved EF
Paroxysmal atrial fibrillation status post PVI 2016
History of Takotsubo cardiomyopathy with recovered LVEF.
Essential hypertension
Dyslipidemia
Celiac disease
Chronic normocytic anemia
Insomnia.
Plan:
Acute on chronic CHF preserved EF
Presents with worsening of exertional dyspnea, peripheral edema, left pleural effusion.
ECHO 10/25/22: EF 63%, stage II diastolic dysfunction, mild to moderate MR, mild TR, PAP 44 mmHg
Update echo pending
Continue IV diuresis.
Monitor renal function
Replete potassium.
Left pleural effusion status post IR thoracentesis 05/17 with 750 clear fluid with removal.
Paroxysmal atrial fibrillation
Status post PVI
Currently in sinus rhythm.
Rate controlled with metoprolol.
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
On aspirin.
Essential hypertension
On metoprolol and hydralazine GAS APPLIANCE REPAIRER
Consideration of GDMT? NILAY versus ARB's
Monitor hemodynamics
Chronic anemia
Iron studies indicative of mixed type
Mildly decreased iron stores possibly due to axillary disease
Consider IV iron
Monitor hemoglobin
Hypervolemic hyponatremia sodium improved with diuresis. Follow BMP.
Lower extremity cellulitis.
Doppler negative for DVT.
Continue and complete course of doxycycline.
Full code.
Anticipated Discharge: 24 - 48 hours
Subjective/Interval History
-
Date of Service: May 18, 2023
Objective Data
-
Labs:
Laboratory Results
05/18/23
06:32
WBC 5.7
Hgb 8.9 L
Hct 26.3 L
Plt Count 310
Sodium 131 L
Potassium 3.4 L
Chloride 103
Carbon Dioxide 26
BUN 29 H
Creatinine 0.9
Glucose 92
Calcium 8.1 L
Total Bilirubin 0.2
AST 27
ALT 14
Alkaline Phosphatase 77
Vital Signs:
Vital Signs
Temp Pulse Resp BP Pulse Ox
97.9 F 70 16 138/62 100
05/17/23 13:59 05/18/23 09:56 05/18/23 09:56 05/18/23 09:56 05/18/23 09:56
I&O
05/17/23 05/18/23 05/19/23
06:59 06:59 06:59
Intake Total 240 / 240
Output Total 900 / 900 650 / 650
Balance -900 / -900 -410 / -410
Physical Exam
-
General: Well Developed and No Apparent Distress
HEENT: Normocephalic, Atraumatic and Moist Mucous Membranes
Respiratory: Clear to Auscultation
Cardiac: Regular Rhythm and S1/S2; Negative Murmur, Rub or Gallop
GI: Soft, Nontender, Nondistended and Normal Bowel Sounds; Negative Organomegaly
Rectal: Deferred by Provider
Musculoskeletal: No Clubbing, No Cyanosis and No Edema
Skin: Negative Rash
Neuro: Nonfocal/Grossly Intact
[2023-05-18 16:43] LABS: Urine Albumin Trace (Neg - Trace); Urine Bilirubin Negative (Negative); Urine Character Clear (Clear); Urine Color Yellow; Urine Glucose Negative (Negative); Urine Ketone Negative (Negative); Urine Leukocyte Negative (Negative); Urine Nitrite Negative (Negative); Urine Occult Blood Negative (Negative); Urine Specific Gravity 1.005 (<1.030); Urine Urobilinogen Negative (Neg - 1+)
--- NOTE | 2023-05-18 17:46 | PTCARENOTE ---
Received pt from ER via WC, accompanied by ER staff. Pt AAO x3, LAST well, ambulatory to bed with assist x1- slightly insteady w/OOB activity, denies weakness/dizziness. Fall prec initiated. VSS. Placed on telemetry:NSR. On room air- pulse ox
98%, no c/o SOB. Abd soft, rounded, to start chol low diet w/1200 ml fl restriction. Pt DTV; states will call for assistance to BR. lt flank bandaid D/I; no drainage/edema noted at site. Oriented to 4East, currently resting comfortably. Will
continue to monitor.
[2023-05-19 03:11] VITALS: BP 139/59
[2023-05-19 06:00] VITALS: BMI 20.1
[2023-05-19 07:06] LABS: % Basophils 1.1 % (0-2); % Eosinophils 2.2 % (0-6); % Immature Granulocytes 0.4 % (0-0.5); % Lymphocytes 32.5 % (20.5-51.1); % Monocytes 9.7 % (1.7-9.3); % Neutrophils 54.1 % (42.2-75.2); Absolute Basophils 0.1 10^3/uL (0-0.2); Absolute Eosinophils 0.1 10^3/uL (0-0.7); Absolute Lymphocytes 1.8 10^3/uL (1.2-3.4); Absolute Monocytes 0.5 10^3/uL (0.1-0.6); Hemoglobin 9.5 g/dL (12.0-16.0); Mean Corp Hgb Conc. 33.9 g/dL (33.0-37.0); Mean Corpuscular Hgb 33.3 pg (27.0-31.0); Mean Corpuscular Volume 98.2 fL (81.0-99.0); Mean Platelet Volume 9.7 fL (7.4-10.4); Nucleated Red Blood Cells % 0 %; Platelet Count 353 10^3/uL (130-400); Red Blood Cell Count 2.85 10^6/uL (4.20-5.40); Red Cell Dist. Width 14.6 % (11.5-14.5); White Blood Cell Count 5.5 10^3/uL (4.8-10.8)
[2023-05-19 07:13] LABS: Blood Urea Nitrogen 32 mg/dl (7-17); Calcium 8.6 mg/dl (8.4-10.2); Carbon Dioxide 27 mmol/L (22-30); Chloride 100 mmol/L (98-107); Estimated Creatinine Clearance 44 ml/min; Glucose 108 mg/dl (70-99); Potassium 3.9 mmol/L (3.5-5.1); Sodium 131 mmol/L (135-145); eGFR > 60.00
[2023-05-19 07:46] VITALS: BP 140/63
[2023-05-19] MEDS: APRESOLINE 25 MG PO ×2 (08:48→20:42)
[2023-05-19] MEDS: B COMPLEX w/VITAMIN C 1 CAPLET PO (08:48)
[2023-05-19] MEDS: OSCAL 500 + D 500 MG PO (08:48)
[2023-05-19] MEDS: LASIX 40 MG IV (08:49)
[2023-05-19] MEDS: VITAMIN C 1000 MG PO (08:49)
[2023-05-19] MEDS: VIBRAMYCIN 100 MG PO ×2 (08:49→20:46)
[2023-05-19] MEDS: HEPARIN 5000 UNITS SC ×2 (08:51→20:43)
[2023-05-19 09:45] VITALS: BMI 20.3
--- NOTE | 2023-05-19 10:48 | W.PN.CARDCBS ---
Addendum entered and electronically signed by Sukhdev Renner MD 05/19/23 12:05:
I saw and examined the patient.
The Process Tech's note was reviewed and I agree with the note.
Comment: Briefly, 78-year-old woman past medical Struve heart for preserved ejection fraction presenting with worsening dyspnea on exertion lower extremity edema as well as abdominal bloating consistent with decompensated heart failure
Has undergone IV diuresis and volume status is significantly improved -on room air and appears euvolemic on exam
Renal function is stable with creatinine 0.9
Weight at 125 pounds, likely close to her dry weight
Tentative plan to transition to oral Lasix tomorrow
We will ask case management to diehl SGLT2 inhibitor
Original Note:
Today's Communication / Plan
-
continue IV lasix
CM to assess cost to patient of SGLT2 inhibitor
consider CT chest/abd/pelvis given history of pulm nodule, new anemia, hypoNa, as well as abd bloating
Impression / Plan
-
Primary Relief Cook: Dr. Kiera Diaz
Assessment:
Presentation with LE edema, GILLIAM, abd bloating
Acute on chronic HFpEF
Anemia
Hyponatremia
LE cellulitis diagnosed 05/14/23
R knee and L wrist fractures 03/2023 while in [facility]
History of paroxysmal atrial fibrillation s/p PVI 2016
History of takotsubo CM with recovery in EF
HTN
HLD
History of hydronephrosis as child
History of lung nodule
Celiac disease
Insomnia
Hypoalbuminemia
ECHO 10/25/22: EF 63%, stage II diastolic dysfunction, mild to moderate MR, mild TR, PAP 44 mmHg
ECHO 05/18/23: EF 69%, stage II diastolic dysfunction with increased filling pressures, mild concentric LVH, moderately dilated right atrium, mild to moderate MR, mild TR, PAP 36 mmHg, trivial to small pericardial effusion, pleural effusion present,
consider repeat imaging with GLS to better assess LVH and myocardial pathology
Plan:
-She reports improvement in breathing, lower extremity edema and abdominal bloating since admission
-s/p L thoracentesis 05/17 for 750cc
-Weight trending down if accurate. Continue IV Lasix 40 mg daily. Creatinine stable at 0.9. she is on 40mg po daily as OP.
-CHF education
-consider GI eval if abd bloating/pain remains post diuresis
-echo with results as above
-EKG SR with PACs. follow on tele. continue toprol
-could consider addition of SGLT2 inhibitor. CM to assess cost to patient
-she remains on doxycycline, started by ER 05/14/23 for possible cellulitis. Peripheral US negative for DVT 05/14/23.
-Workup of anemia per primary service. She has tested heme-negative in the ER 05/13 as well as in primary care physician's office. Iron studies noted. defer work up to primary service
-Workup of hyponatremia per primary service. Also with hypoalbuminemia, 2.4 on 05/17. Follow with diuresis, consider nephrology evaluation
-she had RLL pulm nodules noted on CTAP in 2021, which have not been followed with repeat CT imaging. in setting of new anemia, hyponatremia, would consider repeat CT scan
-She has been completing PT/OT as an outpatient after recent knee and wrist fractures. Continue
-d/w hospitalist. d/w nursing
Progress Note - Relief Cook
Subjective
Date of Service: May 19, 2023
reports improvement in breathing, LE edema, abd bloating since admission. feeling tired
Objective
Labs:
05/19/23 06:26
05/19/23 06:26
Labs
Hgb 9.5 g/dL (12.0-16.0) L 05/19/23 06:26
Hct 28.0 % (37.0-47.0) L 05/19/23 06:26
Plt Count 353 10^3/uL (130-400) 05/19/23 06:26
Sodium 131 mmol/L (135-145) L 05/19/23 06:26
Potassium 3.9 mmol/L (3.5-5.1) 05/19/23 06:26
BUN 32 mg/dl (7-17) H 05/19/23 06:26
Creatinine 0.9 mg/dL (0.6-1.0) 05/19/23 06:26
Glucose 108 mg/dl (70-99) H 05/19/23 06:26
Troponins
05/17/23
15:02
Troponin I 0.022
Vital Signs and I&O:
Vital Signs
Temp Pulse Resp BP Pulse Ox
97.8 F 69 18 140/63 96
05/19/23 07:46 05/19/23 07:46 05/19/23 07:46 05/19/23 07:46 05/19/23 08:00
Vital Signs
Temp Pulse Resp BP Pulse Ox
97.8 F 69 18 140/63 96
05/19/23 07:46 05/19/23 07:46 05/19/23 07:46 05/19/23 07:46 05/19/23 08:00
Intake & Output
05/17/23 05/18/23 05/19/23 05/20/23
07:59 07:59 07:59 07:59
Intake Total 600 / 600
Output Total 900 / 900 950 / 950
Balance -900 / -900 -350 / -350
Physical Exam
Physical Exam
GEN: No distress, awake, alert, oriented x3
HEENT: supple, anicteric, mmm, eomi
LUNGS: few crackles B/L bases, no wheezes
CV: Reg, S1/S2, no murmur
ABD: soft, BS+, NT/ND
EXT: No cyanosis, clubbing. 1+ edema of B/L LE, improving erythema
NEURO: Gross non-focal
SKIN: Warm, pink, dry. No rash
[2023-05-19 11:41] VITALS: BP 138/65
[2023-05-19] MEDS: OMNIPAQUE 50 ML PO (14:29)
[2023-05-19 15:16] VITALS: BP 158/80
[2023-05-19 16:14] VITALS: BMI 20.3
[2023-05-19] MEDS: TOPROL XL 12.5 MG PO (17:50)
--- NOTE | 2023-05-19 18:03 | W.PN.HOSP.TC ---
Today's Communication/Plan
-
Respiratory status improved
Continue IV diuresis
Monitor for left pleural fluid reaccumulation.
CT scan of the chest abdomen pelvis with concern for occult malignancy (reports weight loss)
Oral iron
Follow hemoglobin
Follow sodium level while on diuresis.
Check urine osmolarity and urine sodium
Assessment / Plan
Assessment / Plan
Impression:
Presentation with exertional dyspnea, worsening lower extremity edema and abdominal girth
Acute CHF preserved EF
Left pleural effusion.
Hypervolemic hyponatremia
Hypokalemia
Left lower extremity cellulitis diagnosed 05/14/2023
Conditions prior to admission:
Chronic CHF preserved EF
Paroxysmal atrial fibrillation status post PVI 2016
History of Takotsubo cardiomyopathy with recovered LVEF.
Essential hypertension
Dyslipidemia
Celiac disease
Chronic normocytic anemia
Insomnia.
Plan:
Acute on chronic CHF preserved EF
Presents with worsening of exertional dyspnea, peripheral edema, left pleural effusion.
ECHO 10/25/22: EF 63%, stage II diastolic dysfunction, mild to moderate MR, mild TR, PAP 44 mmHg
Update echo without significant changes
Dyspnea improves with IV diuresis and post thoracentesis
Continue IV diuresis for another 24 hours with plan to transition to oral Lasix on
Monitor renal function
Replete potassium.
Left pleural effusion status post IR thoracentesis 05/17 with 750 clear fluid with removal.
Paroxysmal atrial fibrillation
Status post PVI
Currently in sinus rhythm.
Rate controlled with metoprolol.
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
On aspirin.
Essential hypertension
On metoprolol and hydralazine COUNTER CLERK TRACTOR PARTS
Consideration of GDMT? NILAY versus ARB's
Monitor hemodynamics
Chronic anemia
No evidence of acute blood loss
Iron studies indicative of mixed type
Mildly decreased iron stores possibly due to axillary disease
Start oral iron
Monitor hemoglobin
Outpatient follow-up for further workup including GI/hematology
Hypervolemic hyponatremia sodium improved with diuresis.
Check urine osmolarity.
Urine sodium level will Bio[employer] diuresis
Follow sodium while on IV Lasix.
Pulmonary nodules.
Patient reports lost weight, although decreased symptoms of grief and depression due to poor appetite and low oral intake after spouse's .
Given the above we will check CT scan of the chest abdomen and pelvis with IV and oral contrast
Lower extremity cellulitis.
Doppler negative for DVT.
Continue and complete course of doxycycline.
Full code.
Anticipated Discharge: 24 - 48 hours
Subjective/Interval History
-
Date of Service: May 19, 2023
Objective Data
-
Labs:
Laboratory Results
05/19/23
06:26
WBC 5.5
Hgb 9.5 L
Hct 28.0 L
Plt Count 353
Sodium 131 L
Potassium 3.9
Chloride 100
Carbon Dioxide 27
BUN 32 H
Creatinine 0.9
Glucose 108 H
Calcium 8.6
Vital Signs:
Vital Signs
Temp Pulse Resp BP Pulse Ox
97.7 F 65 18 158/80 100
05/19/23 15:16 05/19/23 15:16 05/19/23 15:16 05/19/23 15:16 05/19/23 15:16
I&O
05/18/23 05/19/23 05/20/23
06:59 06:59 06:59
Intake Total 600 / 600
Output Total 900 / 900 950 / 950
Balance -900 / -900 -350 / -350
Physical Exam
-
General: Well Developed and No Apparent Distress
HEENT: Normocephalic, Atraumatic and Moist Mucous Membranes
Respiratory: Clear to Auscultation
Cardiac: Regular Rhythm and S1/S2; Negative Murmur, Rub or Gallop
GI: Soft, Nontender, Nondistended and Normal Bowel Sounds; Negative Organomegaly
Rectal: Deferred by Provider
Musculoskeletal: No Clubbing, No Cyanosis and No Edema
Skin: Negative Rash
Neuro: Nonfocal/Grossly Intact
[2023-05-19 19:56] VITALS: BP 142/66
[2023-05-19] MEDS: FEOSOL 325 MG PO (20:43)
[2023-05-19] MEDS: MAG-TAB SR 84 MG PO (21:29)
[2023-05-19] MEDS: ASPIR LOW (ENTERIC COATED) 81 MG PO (21:29)
[2023-05-19 22:06] LABS: Osmolality Urine 386 mOsm/kg (300-900)
[2023-05-19 22:14] LABS: Urine Sodium 30 mmol/L (30-90)
[2023-05-19 23:37] VITALS: BP 126/78
[2023-05-20 03:39] VITALS: BP 138/62
[2023-05-20 06:00] VITALS: BMI 20.4
[2023-05-20 07:30] VITALS: BP 156/66
[2023-05-20] MEDS: LIPITOR 10 MG PO (08:05)
[2023-05-20] MEDS: VITAMIN C 1000 MG PO (08:06)
[2023-05-20] MEDS: B COMPLEX w/VITAMIN C 1 CAPLET PO (08:06)
[2023-05-20] MEDS: OSCAL 500 + D 500 MG PO (08:10)
[2023-05-20] MEDS: FEOSOL 325 MG PO (08:10)
[2023-05-20] MEDS: APRESOLINE 25 MG PO (08:11)
[2023-05-20] MEDS: LASIX 40 MG IV ×2 (08:13→13:27)
[2023-05-20] MEDS: VIBRAMYCIN 100 MG PO (08:13)
[2023-05-20] MEDS: HEPARIN 5000 UNITS SC (08:14)
[2023-05-20 11:21] LABS: Blood Urea Nitrogen 36 mg/dl (7-17); Calcium 8.9 mg/dl (8.4-10.2); Carbon Dioxide 28 mmol/L (22-30); Chloride 94 mmol/L (98-107); Estimated Creatinine Clearance 41 ml/min; Glucose 157 mg/dl (70-99); Sodium 130 mmol/L (135-145); eGFR 56.95
[2023-05-20 11:30] VITALS: BP 151/58
--- NOTE | 2023-05-20 11:53 | W.PN.CARDCBS ---
Addendum entered and electronically signed by Sukhdev Renner MD 05/20/23 12:38:
I saw and examined the patient.
The Public Relations Supervisor's note was reviewed and I agree with the note.
Comment: Briefly, 78-year-old woman past medical history of heart failure with preserved ejection fraction presenting in decompensated heart failure
After undergoing IV diuresis volume status is improved
Plan for 1 additional dose of IV Lasix this afternoon prior to discharge
Will increase home Lasix dose to 60 mg daily
She should monitor weights carefully at home
Plan for BMP in 1 week
Outpatient cardiology follow-up has been arranged
Original Note:
Today's Communication / Plan
-
additional dose of 40mg IV lasix prior to dc
60mg po lasix daily upon DC
BMP in 1 week
toprol 12.5mg QPM
po iron
consider OP stress test
OP cardiac follow up arranged
Impression / Plan
-
Primary Employment Program Representative: Dr. Kiera Diaz
Assessment:
Presentation with LE edema, GILLIAM, abd bloating
Acute on chronic HFpEF
Anemia
Hyponatremia
LE cellulitis diagnosed 05/14/23
R knee and L wrist fractures 03/2023 while in [facility]
History of paroxysmal atrial fibrillation s/p PVI 2016
History of takotsubo CM with recovery in EF
HTN
HLD
History of hydronephrosis as child
History of lung nodule
Celiac disease
Insomnia
Hypoalbuminemia
ECHO 10/25/22: EF 63%, stage II diastolic dysfunction, mild to moderate MR, mild TR, PAP 44 mmHg
ECHO 05/18/23: EF 69%, stage II diastolic dysfunction with increased filling pressures, mild concentric LVH, moderately dilated right atrium, mild to moderate MR, mild TR, PAP 36 mmHg, trivial to small pericardial effusion, pleural effusion present,
consider repeat imaging with GLS to better assess LVH and myocardial pathology
Plan:
-she continues to improve. states she ambulated in halls last night without significant SOB. denies further abd pain.
-s/p L thoracentesis 05/17 for 750cc
-will give additional 40mg IV this afternoon and plan to DC on po lasix 60mg daily. Cr stable at 1.0
-BMP in 1 week
-SGLT2 inhibitor $200 per month per CM. will not add at this time
-brief episode of atach on tele overnight. patient asymptomatic. continue toprol
-she has been started on po iron for anemia.
-continue doxycycline for cellulitis
-further work up of hyponatremia per PCP.
-CT chest/abd/pelvis reviewed. with severe coronary artery calcifications. she reports a nuclear stress test was previously discussed but not completed. can consider as OP. EF preserved by echo. trop 0.022 on admission. no CP
-pulm nodules not present on 05/18 study
-She has been completing PT/OT as an outpatient after recent knee and wrist fractures. Continue
-will arrange OP cardiac follow up
-of note, she has upcoming trip to [facility] and leaves 06/07/23.
-d/w hospitalist.
Progress Note - Employment Program Representative
Subjective
Date of Service: May 20, 2023
Reports continued improvement in breathing. Was ambulatory around the unit without significant shortness of breath. No abdominal pain
Objective
Labs:
05/19/23 06:26
05/20/23 10:52
Labs
Hgb 9.5 g/dL (12.0-16.0) L 05/19/23 06:26
Hct 28.0 % (37.0-47.0) L 05/19/23 06:26
Plt Count 353 10^3/uL (130-400) 05/19/23 06:26
Sodium 130 mmol/L (135-145) L 05/20/23 10:52
Potassium 4.0 mmol/L (3.5-5.1) 05/20/23 10:52
BUN 36 mg/dl (7-17) H 05/20/23 10:52
Creatinine 1.0 mg/dL (0.6-1.0) 05/20/23 10:52
Glucose 157 mg/dl (70-99) H 05/20/23 10:52
Troponins
05/17/23
15:02
Troponin I 0.022
Vital Signs and I&O:
Vital Signs
Temp Pulse Resp BP Pulse Ox
97.8 F 67 16 156/66 97
05/20/23 07:30 05/20/23 07:30 05/20/23 07:30 05/20/23 07:30 05/20/23 07:30
Vital Signs
Temp Pulse Resp BP Pulse Ox
97.8 F 67 16 156/66 97
05/20/23 07:30 05/20/23 07:30 05/20/23 07:30 05/20/23 07:30 05/20/23 07:30
Intake & Output
05/18/23 05/19/23 05/20/23 05/21/23
07:59 07:59 07:59 07:59
Intake Total 600 / 600 840 / 840
Output Total 900 / 900 950 / 950 800 / 800
Balance -900 / -900 -350 / -350 40 / 40
Physical Exam
Physical Exam
GEN: No distress, awake, alert, oriented x3
HEENT: supple, anicteric, mmm, eomi
LUNGS: few crackles B/L bases, no wheezes
CV: Reg, S1/S2, no murmur
ABD: soft, BS+, NT/ND
EXT: No cyanosis, clubbing. 1+ edema of B/L LE
NEURO: Gross non-focal
SKIN: Warm, pink, dry. No rash
--- NOTE | 2023-05-20 11:55 | W.DS.TRANS ---
DC Summary - Formula Weigher
-
Discharge Instructions:
Sleep Apnea Risk Low
Discharge Diagnosis/Procedures CHF
Diet 2 Gram Sodium
Specialty Instructions Weigh Daily
Instructions: *DCA Heart Failure Instructions
Stand-Alone Forms:
Changes to Home Medications: No
Discharge Medications:
DC Medications w/original date entered in [facility]
Ca 600 mg-D3 20 mcg-mag oxide 50 dn-Mb-oygfrf-manganese-boron tablet (Calcium 600-D3 Plus (mag-zinc)) 1 tab PO DAILY 07/20/16
ascorbic acid (vitamin C) 1,000 mg tablet (Vitamin C) 1,000 mg PO DAILY 07/20/16
cranberry concentrate-ascorbic acid 4,200 mg-20 mg capsule 4,200 mg PO BID 07/20/16
lecithin 1,200 mg capsule 1,200 mg PO DAILY 07/20/16
magnesium 250 mg tablet 250 mg PO HS 07/20/16
selenium 100 mcg tablet 100 mcg PO DAILY 07/20/16
sour monroe extract 1,000 mg capsule (Tart Monroe Extract) 1,000 mg PO BID 07/20/16
metoprolol succinate 25 mg tablet,extended release 24 hr 12.5 mg PO QPM ##0 07/21/16
Magnesium + Calcium + Zinc 2 tab PO HS 05/17/23
aspirin 81 mg tablet,delayed release 81 mg PO HS 05/17/23
furosemide 40 mg tablet 40 mg PO HS 05/17/23
hydralazine 25 mg tablet 25 mg PO BID 05/17/23
pitavastatin calcium 1 mg tablet 1 mg PO MOWEFR@0800 05/17/23
vitamin B complex 1 tab PO DAILY 05/17/23
ferrous sulfate 325 mg (65 mg iron) tablet (FeroSul) 325 mg PO BID #60 tabs 05/20/23
Home Medication Changes
Pending Results: No
--- NOTE | 2023-05-20 13:36 | CM ---
CM following re: d/c planning
Chart reviewed
CM met with the patient at bedside; IA completed
Pt reports her grandson resides with her in a 2SH with 2STE
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
Pt has no previous hx of VN/SNF/DME
Pt does have prescription coverage and rx's are filled at [facility] on [address]
Pt PCP-Kodak Fontenot
Pt has been cleared medically for d/c and has no needs
IMM reviewed and copy provided
PLAN; d/c home no needs
--- NOTE | 2023-05-23 10:22 | W.HF.CON ---
Heart Failure
- LV Function
Left ventricular function study result: LV Ejection fraction >40%
Ejection Fraction Percentage: 69
- ARNI
Patient already on ARNI: No
Heart Failure ARNI Not Indicated: LV Ejection Fraction >/= 40%
- ACEI/ARB
Patient already on ACEI/ARB: No
Heart Failure ACEI/ARB Not Indicated: LV Ejection Fraction > 40%
- Beta Benjy
Patient already on Evidence Based Beta Benjy: Yes
- Mineralocorticord Receptor Antagonist
Patient already on MRA: No
Heart Failure MRA Not Indicated: LV Ejection Fraction > 40%
- SGLT-2 Inhibitor
Patient already on SGLT-2 Inhibitor: No
Heart Failure SGLT-2 Inhibitor Not Indicated: LV Ejection Fraction >40%
- NYHA CHF Classification
NYHA CHF Classification Level: Class III - Symptoms w/ min exertion, interferes w/ nml daily activity
- ACC/AHA Stage
ACC/AHA Stage: Stage C: Symptomatic Heart Failure
== END 2023-05-20 14:56 | disposition home or self-care (01) | DRG 186 ==
LOC: 4 EAST ACU 22:03
PROVIDERS: Nurse Practitioner; Physician Assistant; Radiology Vascular & Interventional Radiology; ADMITTING PHYSICIAN Hospitalist; ATTENDING PHYSICIAN Internal Medicine; EMERGENCY PHYSICIAN Student in an Organized Health Care Education/Training Program; FAMILY PHYSICIAN Internal Medicine
PROC: 0W9B3ZZ Drainage of Left Pleural Cavity, Percutaneous Approach (ICD-10-PCS; 2023-05-18)
DX: J90 Pleural effusion, not elsewhere classified (principal); I50.33 Acute on chronic diastolic (congestive) heart failure; E87.1 Hypo-osmolality and hyponatremia; L03.116 Cellulitis of left lower limb; I11.0 Hypertensive heart disease with heart failure; K90.0 Celiac disease; E78.5 Hyperlipidemia, unspecified; I48.0 Paroxysmal atrial fibrillation; J44.9 Chronic obstructive pulmonary disease, unspecified; E87.6 Hypokalemia
CPT/HCPCS: 32555; 71045; 71046; 71260; 74177; 80048; 80053; 81003; 82607; 82728; 82746; 83540; 83550; 83605; 83880; 83935; 84300; 84484; 85025; 87040; 93005; 93306; 93970; 99284; Q9967

== ENCOUNTER → 2023-05-26 13:28 | Outpatient (REF) | payer MEDICARE, OTHER, SELFPAY ==
[2023-05-26 14:50] LABS: Blood Urea Nitrogen 37 mg/dl (7-17); Calcium 8.5 mg/dl (8.4-10.2); Carbon Dioxide 27 mmol/L (22-30); Chloride 96 mmol/L (98-107); Glucose 112 mg/dl (70-99); Potassium 4.1 mmol/L (3.5-5.1); Sodium 127 mmol/L (135-145); eGFR 45.76
== END ==
LOC: REG 13:28
PROVIDERS: ATTENDING PHYSICIAN Internal Medicine Cardiovascular Disease; FAMILY PHYSICIAN Internal Medicine
DX: I50.32 Chronic diastolic (congestive) heart failure (principal)
CPT/HCPCS: 36415; 80048

== ENCOUNTER → 2023-06-22 08:25 | Outpatient (REF) | payer MEDICARE, OTHER, SELFPAY ==
[2023-06-22 10:13] LABS: Blood Urea Nitrogen 36 mg/dl (7-17); Calcium 8.6 mg/dl (8.4-10.2); Carbon Dioxide 26 mmol/L (22-30); Chloride 96 mmol/L (98-107); Glucose 113 mg/dl (70-99); Potassium 3.9 mmol/L (3.5-5.1); Sodium 130 mmol/L (135-145)
[2023-06-22 10:18] LABS: NT-proBNP 2730 pg/ml
== END ==
LOC: REG 08:25
PROVIDERS: ATTENDING PHYSICIAN Nurse Practitioner; FAMILY PHYSICIAN Internal Medicine
DX: I42.8 Other cardiomyopathies (principal); R60.0 Localized edema
CPT/HCPCS: 36415; 80048; 83880

== ENCOUNTER → 2023-07-11 11:55 | Outpatient (REF) | payer MEDICARE, OTHER, SELFPAY ==
[2023-07-11 14:13] LABS: Blood Urea Nitrogen 41 mg/dl (7-17); Calcium 8.8 mg/dl (8.4-10.2); Carbon Dioxide 32 mmol/L (22-30); Chloride 96 mmol/L (98-107); Glucose 78 mg/dl (70-99); Potassium 3.7 mmol/L (3.5-5.1); Sodium 131 mmol/L (135-145); eGFR 56.95
== END ==
LOC: REG 11:55
PROVIDERS: ATTENDING PHYSICIAN Internal Medicine Cardiovascular Disease; FAMILY PHYSICIAN Internal Medicine
DX: R60.0 Localized edema (principal); I48.0 Paroxysmal atrial fibrillation
CPT/HCPCS: 36415; 80048

== ENCOUNTER → 2023-07-18 08:29 | Outpatient (REF) | payer MEDICARE, OTHER, SELFPAY ==
[2023-07-18 09:58] LABS: NT-proBNP 3170 pg/ml
[2023-07-18 10:08] LABS: Blood Urea Nitrogen 50 mg/dl (7-17); Calcium 8.8 mg/dl (8.4-10.2); Carbon Dioxide 30 mmol/L (22-30); Chloride 92 mmol/L (98-107); Glucose 96 mg/dl (70-99); Potassium 2.9 mmol/L (3.5-5.1); Sodium 132 mmol/L (135-145); eGFR 45.76
== END ==
LOC: REG 08:29
PROVIDERS: ATTENDING PHYSICIAN Internal Medicine Cardiovascular Disease
DX: I48.0 Paroxysmal atrial fibrillation (principal)
CPT/HCPCS: 36415; 80048; 83880

== ENCOUNTER → 2023-07-19 07:12 | Day surgery (SDC) | payer MEDICARE, OTHER, SELFPAY ==
[2023-07-19 07:32] VITALS: BMI 19.7
== END ==
LOC: CATH 07:12
PROVIDERS: ATTENDING PHYSICIAN Internal Medicine Cardiovascular Disease
DX: I48.19 Other persistent atrial fibrillation (principal); I08.3 Combined rheumatic disorders of mitral, aortic and tricuspid valves; I31.39 Other pericardial effusion (noninflammatory); J90 Pleural effusion, not elsewhere classified; I11.0 Hypertensive heart disease with heart failure; I50.32 Chronic diastolic (congestive) heart failure; E78.5 Hyperlipidemia, unspecified; Z87.891 Personal history of nicotine dependence; Z79.01 Long term (current) use of anticoagulants; Z79.82 Long term (current) use of aspirin
CPT/HCPCS: 93312; 93320; 93325; 92960; 93005

== ENCOUNTER → 2023-07-22 12:30 | Outpatient (REF) | payer MEDICARE, OTHER, SELFPAY ==
[2023-07-22 14:30] LABS: % Basophils 0.7 % (0-2); % Eosinophils 1.5 % (0-6); % Immature Granulocytes 0.4 % (0-0.5); % Lymphocytes 18.7 % (20.5-51.1); % Monocytes 10.1 % (1.7-9.3); % Neutrophils 68.6 % (42.2-75.2); Absolute Basophils 0.1 10^3/uL (0-0.2); Absolute Eosinophils 0.1 10^3/uL (0-0.7); Absolute Lymphocytes 1.5 10^3/uL (1.2-3.4); Absolute Monocytes 0.8 10^3/uL (0.1-0.6); Absolute Neutrophils 5.6 10^3/uL (1.4-6.5); Hemoglobin 10.1 g/dL (12.0-16.0); Mean Corp Hgb Conc. 33.7 g/dL (33.0-37.0); Mean Corpuscular Hgb 34.4 pg (27.0-31.0); Mean Platelet Volume 10.1 fL (7.4-10.4); Nucleated Red Blood Cells % 0 %; Platelet Count 318 10^3/uL (130-400); Red Blood Cell Count 2.94 10^6/uL (4.20-5.40); Red Cell Dist. Width 14.8 % (11.5-14.5); White Blood Cell Count 8.2 10^3/uL (4.8-10.8)
[2023-07-22 15:03] LABS: Blood Urea Nitrogen 47 mg/dl (7-17); Calcium 8.7 mg/dl (8.4-10.2); Carbon Dioxide 30 mmol/L (22-30); Chloride 93 mmol/L (98-107); Glucose 83 mg/dl (70-99); Sodium 130 mmol/L (135-145); eGFR 56.95
== END ==
LOC: REG 12:30
PROVIDERS: ATTENDING PHYSICIAN Internal Medicine Cardiovascular Disease; FAMILY PHYSICIAN Internal Medicine
DX: I48.0 Paroxysmal atrial fibrillation (principal); Z00.00 Encounter for general adult medical examination without abnormal findings; E78.5 Hyperlipidemia, unspecified; D64.9 Anemia, unspecified; I10 Essential (primary) hypertension
CPT/HCPCS: 36415; 80048; 85025

== ENCOUNTER → 2023-08-16 12:59 | Outpatient (REF) | payer MEDICARE, OTHER, SELFPAY ==
[2023-08-16 14:02] LABS: % Basophils 0.8 % (0-2); % Eosinophils 1.8 % (0-6); % Immature Granulocytes 0.6 % (0-0.5); % Lymphocytes 17.7 % (20.5-51.1); % Neutrophils 69.1 % (42.2-75.2); Absolute Basophils 0.1 10^3/uL (0-0.2); Absolute Eosinophils 0.1 10^3/uL (0-0.7); Absolute Lymphocytes 1.3 10^3/uL (1.2-3.4); Absolute Monocytes 0.7 10^3/uL (0.1-0.6); Absolute Neutrophils 4.9 10^3/uL (1.4-6.5); Hematocrit 27.7 % (37.0-47.0); Hemoglobin 9.2 g/dL (12.0-16.0); Mean Corp Hgb Conc. 33.2 g/dL (33.0-37.0); Mean Corpuscular Volume 99.3 fL (81.0-99.0); Mean Platelet Volume 9.7 fL (7.4-10.4); Nucleated Red Blood Cells % 0 %; Platelet Count 370 10^3/uL (130-400); Red Blood Cell Count 2.79 10^6/uL (4.20-5.40); Red Cell Dist. Width 14.6 % (11.5-14.5); White Blood Cell Count 7.1 10^3/uL (4.8-10.8)
[2023-08-16 14:09] LABS: INR 1.04; PT 13.4 Sec (11.4-14.6)
[2023-08-16 14:32] LABS: ALT (SGPT) 17 U/L (0-35); AST (SGOT) 29 U/L (14-36); Albumin 2.6 g/dl (3.5-5.0); Alkaline Phosphatase 82 U/L (38-126); Blood Urea Nitrogen 32 mg/dl (7-17); Calcium 8.3 mg/dl (8.4-10.2); Carbon Dioxide 28 mmol/L (22-30); Chloride 97 mmol/L (98-107); Glucose 105 mg/dl (70-99); Potassium 3.6 mmol/L (3.5-5.1); Sodium 131 mmol/L (135-145); Total Bilirubin 0.3 mg/dl (0.2-1.3); Total Protein 5.9 g/dl (6.3-8.2); eGFR > 60.00
== END ==
LOC: SDSPAT 12:59
PROVIDERS: ATTENDING PHYSICIAN Internal Medicine Cardiovascular Disease; FAMILY PHYSICIAN Internal Medicine; OTHER PHYSICIAN Internal Medicine Cardiovascular Disease
DX: Z01.818 Encounter for other preprocedural examination (principal); I48.19 Other persistent atrial fibrillation
CPT/HCPCS: 36415; 80053; 83735; 85025; 85610; 86850; 86870; 86900; 86901

== ENCOUNTER 2023-08-24 09:04 | Inpatient (IN) | payer MEDICARE, OTHER, SELFPAY ==
[2023-08-16 13:08] VITALS: BMI 22.5
[2023-08-24] VITALS (21 sets, daily range): BP systolic 92–151; BP diastolic 59–83; BMI 23.5
[2023-08-24 07:55] LABS: ACT-LR - POC 229 Seconds (116-155)
[2023-08-24 08:18] LABS: ACT-LR - POC 242 Seconds (116-155)
[2023-08-24 08:39] LABS: ACT-LR - POC 324 Seconds (116-155)
--- NOTE | 2023-08-24 09:15 | ITS.CL.ABL ---
Professional Architect - Ablation
Ablation
Procedure Report:
Electrophysiology procedure report
Date August 24, 2023
Procedure report:
Please see Dr. Diaz's full EP study/ablation report for full detail. I did assist in left and right atrial mapping as well as assisting with entrainment and pacing maneuvers while Dr. Diaz was mapping and ablating and both atria.
Please see his full report for details of care.
--- NOTE | 2023-08-24 11:18 | PTCARENOTE ---
Assumed care of pt upon tsf from CCL post PVI. Pt arrives awake and alert, Ox3. VSS, CM shows AF 70's, POX 91%, placed on 2 liters for comfort. Bilateral groins with Figure 8's, CDI, good PP.She denies any pain or discomfort at this time.
--- NOTE | 2023-08-24 11:28 | ITS.CL.ABL ---
Typing Secretary - Ablation
Ablation
Procedure Report:
ELECTROPHYSIOLOGIC STUDY AND POSSIBLE ABLATION
DATE: August 24, 2023
Primary Care Provider: Dr. Kodak Rubio
Primary Cork Molder: Dr. Kiera Diaz
INDICATION:
Symptomatic Atrial Fibrillation.
Persistent
HISTORY: See H and P.
Symptomatic persistent AF, poorly controlled with attempted medical therapy.
She has complex medical history which includes heart failure with preserved ejection fraction with volume status which has become progressively more difficult to manage, pleural effusions, trivial pericardial effusion, remote history of Takotsubo
related cardiomyopathy.
She has remote history of atrial fibrillation having undergone PVI in 2017 with for symptomatic recurrences of atrial fibrillation noted earlier this year..
HAS-BLED: 3
Age
Abnormal Liver Function
Alcohol use
CHADSVASc: 4
CHF
Age
F Gender
PRESENTING RHYTHM: AF
HISTORY: See H and P.
Symptomatic AF, poorly controlled with attempted medical therapy.
ANTICOAGULATION: Eliquis
'TIME-OUT': called and confirmed.
SEDATION/ANESTHESIA: provided via the anesthesia department using general anesthesia.
PROCEDURE:
Ultrasound Guidance performed by id was utilized for femoral venous Vascular Access b/l.
A decapolar CS catheter was placed within the CS for mapping and pacing.
The intracardiac ultrasound catheter was positioned in the RA for continuous intracardiac ultrasound imaging.
Heparin bolus and infusion to target ACT at 300 -350 seconds was administered. Transseptal puncture was performed. This entailed advancing a sheath with dilator into the superior vena cava and withdrawing both (monitoring intracardiac ultrasound,
fluoroscopy and tip pressure) with the tip oriented toward the atrial septum. The fossa ovalis was engaged (indicated by sudden displacement of the sheath tip as well as tenting of the fossa seen on intracardiac ultrasound).
AcQCross transseptal system was used. Left atrial catheter position was confirmed by echocardiographic imaging, pressure monitoring (LA mean pressure 14 mm Hg) and fluoroscopy. The sheath was advanced over the dilator and positioned in the left
atrium.
The multipolar mapping catheter was initially positioned through the transseptal sheath for high density mapping.
Geometry and voltage mapping was performed using the Jameson multipolar grid catheter. Navex was utilized for three-dimensional electroanatomical mapping.
A 3-D map was created using Navex . A 3-D reconstructed CT image was compared to the 3-D Navex map to assist in anatomic evaluation, mapping and ablation.
Cardioversion restored sinus rhythm but atrial fibrillation recurred.
High density electroanatomical mapping utilizing the Jameson multipolar grid catheter demonstrates a paucity of electrical signals throughout the left atrium at the pulmonary veins, pulmonary vein ostia, the antrums and the posterior wall of the left
atrium. Using a voltage cut off of 0.1 mV low voltage fractionated atrial electrograms can be seen in a patchy pattern at the posterior wall of the left atrium and also at the right superior vein ostium and antrum anteriorly.
The Level Chef Pulse Select PFA catheter and system was used for cardiac ablation. Catheter positioning was guided and confirmed using both I.C.E. and fluoroscopy.
Ablation approach utilized PV isolation with reisolation of the right superior pulmonary vein. Additionally PFA applications were given at the ostium of each pulmonary vein. Furthermore additional ablation lesion set was performed at the posterior
wall of the left atrium. Cardioversion then restored atrial rhythm but atrial fibrillation again occurred. Periods of atrial fibrillation alternated with multiple regular as well as irregular atrial tachycardias with varying activation sequences.
Remapping suggested that the antrum of the right superior pulmonary vein may not be fully isolated therefore additional pulsed electric field energy applications were delivered. Cardioversion then restored sinus rhythm but multiple atrial
tachycardias with varying cycle lengths were observed. Attempts were made to try to map any stable tachycardia but there is too much variation in cycle length as well as activation sequence.
Cardioversion once again restored sinus rhythm and sinus rhythm was maintained to the completion of the study. Further programmed electrical stimulation was not performed.
I.C.E. :
Pre-Ablation Post-Ablation
LVEF: 55 % 55 %
WMA: none none
Pericardial effusion: Tr to sm circumferential (RV and LV) Unchanged
COMPLICATIONS:
None
SUMMARY:
- Mapping and ablation to isolate the PVs
- Additional AF ablation set after PVI.
- 3-D Electroanatomical Mapping
- Intracardiac Ultrasound
Post ablation, I discussed today's findings and results with the patient's son, All.
RECOMMENDATIONS:
- Observe in monitored bed.
- Maintain oral anticoagulation.
- She has marked electrical fractionation at the LA as well as the RA, has demonstrated multiple atrial tachycardias and is at high likelihood of recurrent ATs and AF.
Will initiate dofetilide 0.5 mg twice daily while we follow QTc
- There is concern for amyloidosis. Will check SPEP as well as UPEP with immunofixation and once these results are available, as an outpatient, there can be consideration for pyrophosphate scanning.
- Will check into pricing for SGLT2 inhibitor and initiate if not cost prohibitive
- Office visit with me in 3 months.
- Continue cardiovascular care with Dr Kiera Diaz
Copy to:
Dr. Kodak Rubio
Dr. Kiera Diaz
--- NOTE | 2023-08-24 11:51 | W.CARD.TIKOS ---
Initiate Tikosyn
-
I verify that the patient has not taken any verapamil (Isoptin/Calan), ketoconazole (Nizoral), cimetidine (Tagamet), trimethoprim (Trimpex), trimethoprim/sulfamethoxazole (Bactrim), megesterol (Megace), prochlorperazine (Compazine),
hydrochlorothiazide (HCTZ), dolutegravir (Tivicay) or any Class I or Class III anti-arrhythmic within the last three days
AND
I verify that the patient has not taken amiodarone within the last THREE months, or that the patient's amiodarone plasma concentration is <0.3 mcg/mL.
Does patient have a Ventricular Conduction Abnormality: No
I have assessed the baseline QTc interval (using QT for heart rate less than 60 bpm) and deemed the patient is appropriate for Dofetilide therapy. I understand that Tikosyn is contraindicated if the QTc is >440msec (500msec in patients with
ventricular conduction abnormalities).
Baseline QTc (in msec): 489
QTc interval is greater than 440msec without conduction abnormality OR greater than 500msec with a conduction abnormality, but acceptable to proceed per Cardiology attending.
Reason for Administration with Prolonged QTc: Other Atrial Arrhythmia
Ordering Physician: Justin Diaz
[2023-08-24] MEDS: TIKOSYN 250 MCG PO ×2 (13:31→22:06)
[2023-08-24] MEDS: REFRESH EYE DROPS (PF) 1 DROPS OPHTH (13:40)
--- NOTE | 2023-08-24 16:32 | CM ---
priced meds- called pts [facility] part [facility]- [phone]---marisol is a tier 3- med-- her cost is $96, Farxiga $91/momth- pt tells me the cost is ok
her dofetilide is $117 with the insurance, i gave pt good rx coupon for her pharmacy [facility] - the cost will be $23/month
--- NOTE | 2023-08-24 16:39 | CM ---
spoke to pt in room, she is prev indep, lives alone in a 2 story home with 1 step to enter. she denies any dc planning needs or dme's. plan is for dc to home when medically stable.
[2023-08-24] MEDS: TOPROL XL 12.5 MG PO (17:46)
[2023-08-24] MEDS: ELIQUIS 2.5 MG PO (17:46)
[2023-08-24] MEDS: APRESOLINE 25 MG PO (19:35)
[2023-08-24] MEDS: ASPIR LOW (ENTERIC COATED) 81 MG PO (22:06)
[2023-08-25] VITALS (8 sets, daily range): BP systolic 108–135; BP diastolic 58–75; BMI 23.6
--- NOTE | 2023-08-25 00:18 | PTCARENOTE ---
Pt received start of shift, HR afib. B/l groin sites CDI, soft, no hematoma.Educated pt on tikosyn, how it works, and possible side effects. Pt states understanding. Dose #2 administered -QTc 559. Pt convert to SR w/1st degree AV block.
[2023-08-25 05:06] LABS: Hematocrit 24.1 % (37.0-47.0); Hemoglobin 8.5 g/dL (12.0-16.0); Mean Corp Hgb Conc. 35.3 g/dL (33.0-37.0); Mean Corpuscular Hgb 33.7 pg (27.0-31.0); Mean Corpuscular Volume 95.6 fL (81.0-99.0); Mean Platelet Volume 9.6 fL (7.4-10.4); Platelet Count 406 10^3/uL (130-400); Red Blood Cell Count 2.52 10^6/uL (4.20-5.40); Red Cell Dist. Width 15.2 % (11.5-14.5); White Blood Cell Count 7.7 10^3/uL (4.8-10.8)
[2023-08-25 05:30] LABS: Blood Urea Nitrogen 43 mg/dl (7-17); Calcium 7.8 mg/dl (8.4-10.2); Carbon Dioxide 25 mmol/L (22-30); Chloride 98 mmol/L (98-107); Estimated Creatinine Clearance 35 ml/min; Glucose 111 mg/dl (70-99); Magnesium 2.1 mg/dl (1.6-2.3); Potassium 4.4 mmol/L (3.5-5.1); Sodium 127 mmol/L (135-145)
[2023-08-25] MEDS: LASIX 40 MG PO (08:05)
[2023-08-25] MEDS: ZETIA 10 MG PO (08:05)
[2023-08-25] MEDS: ELIQUIS 2.5 MG PO ×2 (08:05→20:17)
[2023-08-25] MEDS: KCL 20 MEQ PO (08:05)
[2023-08-25] MEDS: APRESOLINE 25 MG PO ×2 (08:05→20:18)
[2023-08-25] MEDS: TIKOSYN 125 MCG PO ×2 (08:06→20:18)
--- NOTE | 2023-08-25 08:40 | W.PN.CARDCBS ---
Addendum entered and electronically signed by David Ayoub MD 08/25/23 10:22:
Patient seen and examined
Agree with HEALTHCARE SCIENCE SPECIALIST note and assessment
Agree with HEALTHCARE SCIENCE SPECIALIST plan
I did have answered all questions
Examination
Per HEALTHCARE SCIENCE SPECIALIST note
Assessment:
Symptomatic persistent Afib/Aflutter
Prior PVI 2016
Tikosyn loading
chronic HFpEF
Anemia
Hyponatremia
LE cellulitis diagnosed 05/14/23
R knee and L wrist fractures 03/2023 while in [facility]
History of takotsubo CM with recovery in EF
HTN
HLD
History of hydronephrosis as child
History of lung nodule
Celiac disease
Insomnia
Hypoalbuminemia
Plan:
Post redo PVI 08/24/23, feels good
Tikosyn Loading dose #3 this am, monitor QTc closely
Dose adjusted for drop in CrCl to 35, 125mcg q 12 hr
groins stable
There is concern for amyloidosis. Will check SPEP as well as UPEP with immunofixation and once these results are available, as an outpatient, there can be consideration for pyrophosphate scanning.
Will check into pricing for SGLT2 inhibitor, will start Farxiga 10mg this am, cost is not prohibitive
continue OAC Eliquis 2.5mg bid
Monitor wt daily, will continue with PO lasix today
trend Cr
Activity restrictions reviewed
oob ambulate today, I.S. C&DB
f/u Dr. Ulloa in 3 mo
continue to monitor on tele
Original Note:
Today's Communication / Plan
-
Tikosyn loading, decrease dose and monitor QTc closely
OAC
OOB ambulate
Impression / Plan
-
Primary care physician: Robb Rubio MD
Primary Hot Box Checker: Dr. Kiera Sangrigoli
Assessment:
Symptomatic persistent Afib/Aflutter
Prior PVI 2016
Tikosyn loading
chronic HFpEF
Anemia
Hyponatremia
LE cellulitis diagnosed 05/14/23
R knee and L wrist fractures 03/2023 while in [facility]
History of takotsubo CM with recovery in EF
HTN
HLD
History of hydronephrosis as child
History of lung nodule
Celiac disease
Insomnia
Hypoalbuminemia
Plan:
Post redo PVI 08/24/23, feels good
Tikosyn Loading dose #3 this am, monitor QTc closely
Dose adjusted for drop in CrCl to 35, 125mcg q 12 hr
groins stable
There is concern for amyloidosis. Will check SPEP as well as UPEP with immunofixation and once these results are available, as an outpatient, there can be consideration for pyrophosphate scanning.
Will check into pricing for SGLT2 inhibitor, will start Farxiga 10mg this am, cost is not prohibitive
continue OAC Eliquis 2.5mg bid
Monitor wt daily, will continue with PO lasix today
trend Cr
Activity restrictions reviewed
oob ambulate today, I.S. C&DB
f/u Dr. Ulloa in 3 mo
continue to monitor on tele
Progress Note - Hot Box Checker
Subjective
Date of Service: August 25, 2023
no cp, sob
Objective
Labs:
08/25/23 04:30
08/25/23 04:30
Labs
Hgb 8.5 g/dL (12.0-16.0) L 08/25/23 04:30
Hct 24.1 % (37.0-47.0) L 08/25/23 04:30
Plt Count 406 10^3/uL (130-400) H 08/25/23 04:30
Sodium 127 mmol/L (135-145) L 08/25/23 04:30
Potassium 4.4 mmol/L (3.5-5.1) 08/25/23 04:30
BUN 43 mg/dl (7-17) H 08/25/23 04:30
Creatinine 1.1 mg/dL (0.6-1.0) H 08/25/23 04:30
Glucose 111 mg/dl (70-99) H 08/25/23 04:30
Vital Signs and I&O:
Vital Signs
Temp Pulse Resp BP Pulse Ox
98.7 F 68 20 118/62 95
08/25/23 07:09 08/25/23 08:05 08/25/23 07:09 08/25/23 08:05 08/25/23 07:09
Vital Signs
Temp Pulse Resp BP Pulse Ox
98.7 F 68 20 118/62 95
08/25/23 07:09 08/25/23 08:05 08/25/23 07:09 08/25/23 08:05 08/25/23 07:09
Intake & Output
08/23/23 08/24/23 08/25/23 08/26/23
06:59 06:59 06:59 06:59
Intake Total 480 / 480
Balance 480 / 480
Physical Exam
Physical Exam
NAD< AOX3
S1, S2, RRR
faint bibasilar rales, non labored, no wheeze
SNTND bsx4
b/l groins c/d/i no HT, soft
trace - +1 b/l LE edema
[2023-08-25] MEDS: FARXIGA 10 MG PO (11:47)
[2023-08-25] MEDS: TOPROL XL 12.5 MG PO (18:14)
[2023-08-25] MEDS: ASPIR LOW (ENTERIC COATED) 81 MG PO (22:35)
--- NOTE | 2023-08-26 02:47 | PTCARENOTE ---
Fourth Tikosyn dose administered. Patient mostly SR on monitor with occasional periods of A-fib. Post EKG A-fib. QTc 410. Patient sleeping quietly most of shift.
[2023-08-26 03:23] VITALS: BP 137/65
[2023-08-26 04:46] LABS: Hematocrit 23.3 % (37.0-47.0); Hemoglobin 8.1 g/dL (12.0-16.0); Mean Corp Hgb Conc. 34.8 g/dL (33.0-37.0); Mean Corpuscular Hgb 33.9 pg (27.0-31.0); Mean Corpuscular Volume 97.5 fL (81.0-99.0); Mean Platelet Volume 9.6 fL (7.4-10.4); Platelet Count 381 10^3/uL (130-400); Red Blood Cell Count 2.39 10^6/uL (4.20-5.40); Red Cell Dist. Width 15.1 % (11.5-14.5)
[2023-08-26 05:17] LABS: Blood Urea Nitrogen 40 mg/dl (7-17); Calcium 7.9 mg/dl (8.4-10.2); Carbon Dioxide 25 mmol/L (22-30); Chloride 99 mmol/L (98-107); Estimated Creatinine Clearance 35 ml/min; Glucose 86 mg/dl (70-99); Magnesium 2.1 mg/dl (1.6-2.3); Potassium 4.1 mmol/L (3.5-5.1); Sodium 127 mmol/L (135-145)
[2023-08-26 06:00] VITALS: BMI 23.8
[2023-08-26 07:25] VITALS: BP 128/61
--- NOTE | 2023-08-26 08:10 | W.PN.CARDCBS ---
Addendum entered and electronically signed by David Ayoub MD 08/26/23 10:49:
Patient seen and examined
Agree with ENVIRONMENTAL SERVICES TECHNICIAN note and assessment
Agree with ENVIRONMENTAL SERVICES TECHNICIAN plan
ECGs reviewed
Examination:
As per ENVIRONMENTAL SERVICES TECHNICIAN note
Cor regular
Alert and x 3
Nonfocal neurologically
IMPRESSION:
Symptomatic persistent Afib/Aflutter
Prior PVI (2016)
S/P PFA, 08/24/23
Tikosyn load
chronic diastolic HFpEF, 69%
Takotsubo CM w/recovered EF (2005)
NICM
HLD
HTN
MR
Vertigo Edema
Lung Nodule (2021, stable)
Anemia
Hyponatremia
LE cellulitis (05/14/23)
PLAN:
Tele- SR w/PAT
Tikosyn load- dose #5 today, QTc stable ~420ms
Dose adjusted for drop in CrCl to 35 (pre Tikosyn was 41)- 125mcg q 12 hr
Eliquis restarted, 2.5mg BID
groins stable
In process of r/o amylodosis- SPEP/UPEP with immunofixation sent- results in outpt followup, t/c pyophosphate scanning
New start farxiga- cost appropriate
If QTc after dose #5 stable, ok for discharge
followup with Dr. Ulloa as scheduled
Original Note:
Today's Communication / Plan
-
Tikosyn dose #5 this am
If QTc stable, then ok for d/c
Amyloid workup continues- will follow in outpt for results/further testing
Followup with Dr. Ulloa scheduled
Impression / Plan
-
PCP: Kodak Rubio MD
CDY: Kiera Diaz MD
78 y/o, PAF w/prior PVI (2016), now recurrent with HF exacerbation, some aflutter. [id number]=0, maintained on eliquis 2.5mg BID.
S/P PFA 08/24/23, admitted post procedure for Tikosyn load.
IMPRESSION:
Symptomatic persistent Afib/Aflutter
Prior PVI (2016)
S/P PFA, 08/24/23
Tikosyn load
chronic diastolic HFpEF, 69%
Takotsubo CM w/recovered EF (2005)
NICM
HLD
HTN
MR
Vertigo Edema
Lung Nodule (2021, stable)
Anemia
Hyponatremia
LE cellulitis (05/14/23)
PLAN:
Tele- SR w/PAT
Tikosyn load- dose #5 today, QTc stable ~420ms
Dose adjusted for drop in CrCl to 35 (pre Tikosyn was 41)- 125mcg q 12 hr
Eliquis restarted, 2.5mg BID
groins stable
In process of r/o amylodosis- SPEP/UPEP with immunofixation sent- results in outpt followup, t/c pyophosphate scanning
New start farxiga- cost appropriate
If QTc after dose #5 stable, ok for discharge
followup with Dr. Ulloa as scheduled
Progress Note - Dock Builder
Subjective
Date of Service: August 26, 2023
Denies cp/palps/dyspnea
oob ambulating
bilat groin sites tstable
tolerating tikosyn load
Objective
Labs:
08/26/23 03:36
08/26/23 03:36
Labs
Hgb 8.1 g/dL (12.0-16.0) L 08/26/23 03:36
Hct 23.3 % (37.0-47.0) L 08/26/23 03:36
Plt Count 381 10^3/uL (130-400) 08/26/23 03:36
Sodium 127 mmol/L (135-145) L 08/26/23 03:36
Potassium 4.1 mmol/L (3.5-5.1) 08/26/23 03:36
BUN 40 mg/dl (7-17) H 08/26/23 03:36
Creatinine 1.1 mg/dL (0.6-1.0) H 08/26/23 03:36
Glucose 86 mg/dl (70-99) 08/26/23 03:36
Vital Signs and I&O:
Vital Signs
Temp Pulse Resp BP Pulse Ox
98.5 F 63 20 137/65 95
08/26/23 07:21 08/26/23 06:00 08/26/23 07:21 08/26/23 03:23 08/26/23 07:21
Vital Signs
Temp Pulse Resp BP Pulse Ox
98.5 F 63 20 137/65 95
08/26/23 07:21 08/26/23 06:00 08/26/23 07:21 08/26/23 03:23 08/26/23 07:21
Intake & Output
08/24/23 08/25/23 08/26/23 08/27/23
06:59 06:59 06:59 06:59
Intake Total 480 / 480 1920 / 1920
Output Total 650 / 650
Balance 480 / 480 1270 / 1270
Physical Exam
Physical Exam
AAOx3, MAEE 5/5
RRR S1 S2 no murmurs
CTA bilat, non labored
soft abd, + bs
bilat groin sites without ht/bleeding, non tender
bilat extremities w/palpable distal pulses, no edema
[2023-08-26] MEDS: TIKOSYN 125 MCG PO (08:21)
[2023-08-26] MEDS: FARXIGA 10 MG PO (08:21)
[2023-08-26] MEDS: ZETIA 10 MG PO (08:21)
[2023-08-26] MEDS: KCL 20 MEQ PO (08:22)
[2023-08-26] MEDS: LASIX 40 MG PO (08:22)
[2023-08-26] MEDS: APRESOLINE 25 MG PO (08:22)
[2023-08-26] MEDS: ELIQUIS 2.5 MG PO (08:22)
--- NOTE | 2023-08-26 09:44 | PTCARENOTE ---
The patient is aaox3, vss, 95% on RA. NSR is noted on the monitor. She has no complaints of pain or discomfort. 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 She is anticipating on going home today.
--- NOTE | 2023-08-26 10:40 | PTCARENOTE ---
5th dose Qtc 412
[2023-08-26 11:07] VITALS: BP 124/64
--- NOTE | 2023-08-26 11:13 | W.DS.TRANS ---
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
-
Discharge Instructions:
Sleep Apnea Risk Intermediate
Discharge Diagnosis/Procedures Afib, s/p ablation, Tikosyn load
Diet Low Cholesterol
Driving Restrictions No driving for 24 hours
Blood Work BMP in 1 week- results to Dr. Diaz
Instructions:
Stand-Alone Forms: DC Instructions- Cath/EP Lab
Changes to Home Medications: Yes
Discharge Medications:
DC Medications w/original date entered in [facility]
Ca 600 mg-D3 20 mcg-mag oxide 50 bd-Ig-jkbfze-manganese-boron tablet (Calcium 600-D3 Plus (mag-zinc)) 1 tab PO DAILY Supplement 07/20/16
ascorbic acid (vitamin C) 1,000 mg tablet (Vitamin C) 1,000 mg PO DAILY Supplement 07/20/16
sour monroe extract 1,000 mg capsule (Tart Monroe Extract) 1,000 mg PO BID Supplement 07/20/16
aspirin 81 mg tablet,delayed release 81 mg PO HS blood thinner 05/17/23
hydralazine 25 mg tablet 25 mg PO BID bp 05/17/23
vitamin B complex 1 tab PO DAILY Supplement 05/17/23
apixaban 2.5 mg tablet (Eliquis) 2.5 mg PO BID afib 07/19/23
cholecalciferol (vitamin D3) 125 mcg (5,000 unit) tablet (Vitamin D3) 125 mcg PO DAILY Supplement 07/19/23
cyanocobalamin (vitamin B-12) 1,000 mcg tablet (Vitamin B-12) 1,000 mcg PO DAILY Supplement 07/19/23
ezetimibe 10 mg tablet (Zetia) 10 mg PO DAILY cholesterol 07/19/23
furosemide 20 mg tablet (Lasix) 40 mg PO DAILY chf 07/19/23
metoprolol succinate 25 mg tablet,extended release 24 hr 12.5 mg PO HS bp 07/19/23
multivitamin with minerals (Hair,Skin and Nails tablet) 1 tab PO DAILY Supplement 07/19/23
omega 9-uzg-ymp-fish oil 1,200 mg (144 mg-216 mg) capsule (Fish Oil) 1 cap PO DAILY Supplement 07/19/23
pitavastatin calcium 1 mg tablet (Livalo) 1 mg PO MOWEFR cholesterol 07/19/23
potassium chloride 20 mEq tablet,extended release(part/cryst) 20 meq PO DAILY Supplement 07/19/23
vit C 250 mg-vit E 90 mg-zinc 40 mg-copper 1 iw-vfaomo-hbcnqs capsule (PreserVision AREDS-2) 1 tab PO DAILY Supplement 07/19/23
dapagliflozin propanediol 10 mg tablet 10 mg PO DAILY #90 tabs 08/26/23
dofetilide 125 mcg capsule 125 mcg PO Q12H #180 caps 08/26/23
Home Medication Changes
NEW: dofetilide, dapagliflozin
Pending Results: No
[2023-08-27 22:48] LABS: Albumin 1.91 g/dL (3.75-5.01); Alpha 1 Globulin 0.32 g/dL (0.19-0.46); Alpha 2 Globulin 1.04 g/dL (0.48-1.05); Free Kappa Light Chains,Quant 75.57 mg/L (3.30-19.40); Free Lambda Light Chains,Quant 60.45 mg/L (5.71-26.30); IgA 409 mg/dL (68-408); IgG 866 mg/dL (768-1632); IgM 253 mg/dL (35-263); Immunofixation Electrophoresis IFE Done; Kappa/Lambda Fr Light Ratio 1.25 (0.26-1.65); Total Protein-Electrophoresis 5.1 g/dL (6.3-8.2)
[2023-08-28 16:34] LABS: 24 Hour Urine Total Volume Random mL; Urine Collection Length Random hr; Urine Free Kappa Light Chains 24.06 mg/L (0.00-32.90); Urine Free Lambda Light Chains 2.43 mg/L (0.00-3.79)
== END 2023-08-26 12:44 | disposition home or self-care (01) | DRG 274 ==
LOC: IVU 09:04
PROVIDERS: Nurse Practitioner Adult Health; ADMITTING PHYSICIAN Internal Medicine Cardiovascular Disease
PROC: 02K83ZZ Map Conduction Mechanism, Percutaneous Approach (ICD-10-PCS; 2023-08-24)
PROC: 4A023FZ Measurement of Cardiac Rhythm, Percutaneous Approach (ICD-10-PCS; 2023-08-24)
PROC: 02583ZZ Destruction of Conduction Mechanism, Percutaneous Approach (ICD-10-PCS; 2023-08-24)
PROC: 4A0234Z Measurement of Cardiac Electrical Activity, Percutaneous Approach (ICD-10-PCS; 2023-08-24)
DX: I48.19 Other persistent atrial fibrillation (principal); E87.1 Hypo-osmolality and hyponatremia; I50.32 Chronic diastolic (congestive) heart failure; E85.9 Amyloidosis, unspecified; I48.92 Unspecified atrial flutter; I42.8 Other cardiomyopathies; I11.0 Hypertensive heart disease with heart failure; E78.5 Hyperlipidemia, unspecified; I34.0 Nonrheumatic mitral (valve) insufficiency; D64.9 Anemia, unspecified; I47.19 Other supraventricular tachycardia; G47.00 Insomnia, unspecified; E88.09 Other disorders of plasma-protein metabolism, not elsewhere classified; Z79.01 Long term (current) use of anticoagulants
CPT/HCPCS: 76937; 80048; 82784; 83521; 83735; 84155; 84156; 84165; 85027; 85347; 86334; 86335; 86850; 86870; 86900; 86901; 93005; 93656; 93657; C1730; C1732; C1733; C1759; C1769; C1892; C1894

== ENCOUNTER → 2023-09-02 09:51 | Outpatient (REF) | payer MEDICARE, OTHER, SELFPAY ==
[2023-09-02 11:30] LABS: Blood Urea Nitrogen 23 mg/dl (7-17); Calcium 8.3 mg/dl (8.4-10.2); Carbon Dioxide 30 mmol/L (22-30); Chloride 94 mmol/L (98-107); Glucose 99 mg/dl (70-99); Potassium 4.1 mmol/L (3.5-5.1); Sodium 127 mmol/L (135-145); eGFR 56.95
== END ==
LOC: REG 09:51
PROVIDERS: ATTENDING PHYSICIAN Nurse Practitioner Family; FAMILY PHYSICIAN Internal Medicine; REFERRING PHYSICIAN Internal Medicine Cardiovascular Disease
DX: I48.0 Paroxysmal atrial fibrillation (principal)
CPT/HCPCS: 36415; 80048

== ENCOUNTER 2023-09-26 21:15 | Inpatient (IN) | payer MEDICARE, OTHER, SELFPAY ==
[2023-09-26] VITALS (8 sets, daily range): BP systolic 146–170; BP diastolic 64–104; BMI 22.7; BMI 22.2
[2023-09-26 18:13] LABS: % Basophils 0.7 % (0-2); % Immature Granulocytes 0.3 % (0-0.5); % Monocytes 8.3 % (1.7-9.3); % Neutrophils 62.7 % (42.2-75.2); Absolute Basophils 0.1 10^3/uL (0-0.2); Absolute Eosinophils 0.1 10^3/uL (0-0.7); Absolute Lymphocytes 1.9 10^3/uL (1.2-3.4); Absolute Monocytes 0.6 10^3/uL (0.1-0.6); Absolute Neutrophils 4.5 10^3/uL (1.4-6.5); Hematocrit 33.5 % (37.0-47.0); Hemoglobin 11.4 g/dL (12.0-16.0); Mean Corpuscular Hgb 33.6 pg (27.0-31.0); Mean Corpuscular Volume 98.8 fL (81.0-99.0); Mean Platelet Volume 9.5 fL (7.4-10.4); Nucleated Red Blood Cells % 0 %; Platelet Count 392 10^3/uL (130-400); Red Blood Cell Count 3.39 10^6/uL (4.20-5.40); Red Cell Dist. Width 15.4 % (11.5-14.5); White Blood Cell Count 7.1 10^3/uL (4.8-10.8)
[2023-09-26 18:28] LABS: ALT (SGPT) 22 U/L (0-35); AST (SGOT) 45 U/L (14-36); Albumin 2.7 g/dl (3.5-5.0); Alkaline Phosphatase 85 U/L (38-126); Blood Urea Nitrogen 27 mg/dl (7-17); Calcium 8.3 mg/dl (8.4-10.2); Carbon Dioxide 28 mmol/L (22-30); Chloride 99 mmol/L (98-107); Glucose 104 mg/dl (70-99); Potassium 3.9 mmol/L (3.5-5.1); Sodium 130 mmol/L (135-145); Total Bilirubin 0.4 mg/dl (0.2-1.3); Total Protein 6.2 g/dl (6.3-8.2); eGFR > 60.00
[2023-09-26 18:37] LABS: NT-proBNP 2190 pg/ml
--- NOTE | 2023-09-26 19:05 | ED.GENMED ---
History of Present Illness
General
Chief Complaint: Swelling
Source: patient
Exam Limitations: none
Time Seen by Provider: 09/26/23 18:24
History of Present Illness
History of Present Illness:
This is a 78 year old female that comes in with c/o SOB. 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 State that she was going to [place] for a family vacation and the left on Tuesday. States that she was told to
increase her Lasix from 40mg to 80mg BID for 3 days States that she called them today as on Tuesday she had some chest discomfort that would come and go and Tuesday this happened again but she was doing a lot of walking around. States that they told
her to come to the ER so she drove home today. States that she also feels that her abd is swollen and that she has had some diarrhea. Denies any fever, chills, chest pain today, abd pain, nausea, vomiting, headache, dizziness, urinary burning.
Past History
Past History
ED Past Medical History: Arrthythmia (atrial fib-no anticoags), CAD, CHF, HTN, Hypercholesterolemia, AR, Psychiatric (Depression) and Other (Back and neck pain, Migraines, Celiac disease, Anemia, Miscarrage X 3)
ED Past Surgical History: Cardiac (ablations, Cardioversion) and Other (Hernia repair bilateral, Left breast lumpectomy)
Social History
Tobacco: Former smoker
Alcohol: None
Personal:
Living: alone
Employment: Retired
Review of Systems
Review of Systems
All Other Systems: ROS reviewed and negative except as documented in HPI and ROS
Constitutional: Reports no symptoms; Denies fever or chills
EENT: Reports no symptoms
Respiratory: Reports trouble breathing; Denies cough
Cardiac: Reports chest pain
ABD/GI: Reports diarrhea and other (Feels abd is swollen); Denies abdominal pain, nausea or vomiting
: Reports no symptoms; Denies dysuria, frequency or urgency
Musculoskeletal: Reports edema
Skin: Reports no symptoms
Neurological: Reports no symptoms; Denies dizzy or headache
Psychiatric: Reports no symptoms
Phy Exam
General Physical Exam
General Presentation: no apparent distress
General age: appears stated age
General Skin: warm and dry
General Habitus: elderly
General Mental: alert
General Hydration: dry mucous membranes
ENT Exam
ENT Exam: TM's normal, pharynx normal and neck supple
Eye Exam
Eye Exam: EOMI
Cardiovascular Exam
Cardiovascular Exam: normal peripheral pulses and irregularly irregular
Pulmonary Exam
Pulmonary Exam: no respiratory distress, no rales, chest non tender, no crackles, no rhonchi, no wheezing, no cough and decreased breath sounds (at bases, )
Gastrointestinal Exam
Gastrointestinal Exam: normal bowel sounds, non tender, soft, no organomegaly, no pulsatile mass and non distended
Musculoskeletal Exam
Musculoskeletal Exam: full ROM and edema (Pitting Edema of the legs from ankles into the thighs +1)
Skin Exam
Skin Exam: normal color, warm/dry, no rash and no petechia
Psychiatric Exam
Psychiatric Exam: normal mood/affect
Scores
Heart Failure Risk
Heart Failure Risk Score: Not Applicable
Course
Orders/Labs/Results
Orders:
Orders
09/26/23 17:46
Electrocardiogram (*1) Urgent
Reason for Study: Chest Pain
EKG- Treatment ONCE
Pulse Ox/spot Check [RESP] Urgent
Quantity: 1
Special Instructions: ON ROOM AIR
09/26/23 18:02
BNP [NT-proBNP] Urgent
Complete Blood Count/With Diff Urgent
Comprehensive Metabolic Panel Urgent
Troponin I Urgent
09/26/23 19:05
EKG- Treatment ONCE
CR Chest - 2 Views Urgent
Comment:
Reason For Exam: SOB
09/26/23 20:29
Prothrombin Time Urgent
09/26/23 20:53
Admit/Transfer Patient As Directed
Co-Sign Provider:
Level of Care: Inpatient admission
Assign to:: Telemetry
Physician / Group: ray lombardo
Diagnosis: recurrent lg left pleural effusion
Reason for Telemetry: Acute Heart Failure
Date to Stop Telemetry: 09/29/23
Time to Stop Telemetry: 11:00
Reason for Hospitalization: recurrent lg left pleural effusion
Expected length of stay greater than two midnights?: Yes
ELOS- Estimated Length of Stay in days: 4
I certify the patient meets the requirements for IP care: Yes
Furosemide [Lasix] 40 mg IV NOW STA
09/26/23 20:54
Code Status As Directed
Resuscitation Status: Full Code
09/26/23 21:00
Electrocardiogram (*1) Urgent
Reason for Study: Shortness of Breath
Other Reason for Exam: Repeat with Troponin
Troponin I Urgent
Flush (0.9% Sodium Chloride) [Flush (Nss)] See Dose Instructions IV PER PROTOCOL
09/29/23 11:00
DC Protocol for Telemetry ONCE
Abnormal Lab Results
09/26/23
18:02
RBC 3.39 L 10^6/uL
(4.20-5.40)
Hgb 11.4 L g/dL
(12.0-16.0)
Hct 33.5 L %
(37.0-47.0)
MCH 33.6 H pg
(27.0-31.0)
RDW 15.4 H %
(11.5-14.5)
Sodium 130 L mmol/L
(135-145)
BUN 27 H mg/dl
(7-17)
Glucose 104 H mg/dl
(70-99)
Calcium 8.3 L mg/dl
(8.4-10.2)
AST 45 H U/L
(14-36)
Total Protein 6.2 L g/dl
(6.3-8.2)
Albumin 2.7 L g/dl
(3.5-5.0)
09/26/23 18:02
09/26/23 18:02
H/H slightly low. hyponatremia (corrected sodium by glucose 130.1), Hyperglycemia, AST mildly eevated. Total protein very sightly low. Albumin low. troponin 0.020, Pro-BNP 2190
Vital Signs
Initial and Last Documented VS:
Initial Vital Signs
Temp Pulse Resp BP Pulse Ox
97.8 F 86 18 164/104 99
09/26/23 17:42 09/26/23 17:42 09/26/23 17:42 09/26/23 17:42 09/26/23 17:42
Last Documented Vital Signs
Temp Pulse Resp BP Pulse Ox
97.8 F 77 23 161/91 98
09/26/23 17:42 09/26/23 21:00 09/26/23 21:00 09/26/23 21:00 09/26/23 21:00
MDM/Problems Addressed
Differential Diagnosis Includes:
CHF, Pleural effusion.
MDM/Problems Addressed:
This is a 78 year old female that comes in with c/o SOB. States that this started on Tuesday and she was told to increase her Lasix. States that she had some chest pain over the weekend and she is still SOB.
Will get labs, Chest X-ray.
Back into see patient. Explained that she has a large pleural effusion on the left and slight on the right. Will admit patient. Hospitalist notified.
Chronic conditions affecting care: Other (History of CHF, )
Acute Exacerbation and/or Progression of Chronic Illness: Other (History of CHF)
*Radiology
Radiology exam reviewed: preliminary read by ED provider (Chest- Large pleural effusion left and small on the right. ) and radiology read reviewed (Chest-Large left pleural effusion. Small right pleural effusion )
*Pulse Oximetry
Patient hypoxic: no
*EKG
Interpreted by ED Provider?: Yes
Heart Rate: 69
Rate: normal
Rhythm: a-fib
Wells: normal axis
QRS Pattern: normal QRS
Ischemia: no ischemia
*Foundry Superintendant Interpretation
Rate: normal
Heart Rate: 70
Rhythm: a-fib
*Critical Care Note
Total Time (30-74mins, 75-104mins- exclusive of procedures): Not Applicable
ED Attending Note
-
Portions of this chart may have been created with voice recognition software.� Occasional wrong word or��sound alike� substitutions may have occurred due to the inherent limitations of voice recognition software.
Discharge Plan
Departure
Patient Disposition: Admit
Date of Disposition: 09/26/23
Time of Disposition: 20:31
Admit to: Telemetry
Presentation/result/management discussed w/ accepting MD/DO: Hospitalist
Patient with high blood pressure during this ER visit?: Yes
Condition: Good
Covid-19: Not Applicable
Discharge Problem:
SOB (shortness of breath), Pleural effusion on left, Pleural effusion right, slight
Prescriptions:
No Action
ascorbic acid (vitamin C) [Vitamin C] 1,000 MG tablet
1,000 mg PO DAILY
Ca-D3-mag cp-ntbk-wwo-moy-bor [Calcium 600-D3 Plus (mag-zinc)] 1 EACH tablet
1 tab PO DAILY
hydralazine 25 mg Tablet
25 mg PO BID
aspirin 81 mg Tablet,Delayed Release (Dr/Ec)
81 mg PO HS
vitamin B complex Tablet
1 tab PO DAILY
cyanocobalamin (vitamin B-12) [Vitamin B-12] 1,000 mcg Tablet
1,000 mcg PO DAILY
potassium chloride 20 mEq Tablet,Er Particles/Crystals
20 meq PO DAILY
ezetimibe [Zetia] 10 mg Tablet
10 mg PO DAILY
cholecalciferol (vitamin D3) [Vitamin D3] 125 mcg (5,000 unit) Tablet
125 mcg PO DAILY
omega 2-fka-ueq-fish oil [Fish Oil] 1,200 (144-216) mg Capsule
1 cap PO DAILY
pitavastatin calcium [Livalo] 1 mg Tablet
1 mg PO MOWEFR
metoprolol succinate 25 MG tablet extended release 24 hr
12.5 mg PO HS
Eliquis 2.5 mg Tablet
2.5 mg PO BID
dofetilide 125 mcg capsule
125 mcg PO Q12H Qty: 180 3RF
furosemide 40 mg tablet
40 mg PO DAILY
Tart Monroe
2 cap PO DAILY
Referrals:
Robb Rubio MD [Family Provider] -
Interventions
Interventions:
*Risk Screen - Suicide Last Done: 09/26/23 17:42
*General Assessment Last Done: 09/26/23 17:42
*Neglect/Abuse Screening Last Done: 09/26/23 17:42
*ED COVID-19 Vaccine History Last Done: 09/26/23 17:42
ED- Cardiac Assessment Last Done: 09/26/23 18:45
ED- Pulmonary Assessment Last Done: 09/26/23 18:45
ED-Skin Assessment Last Done: 09/26/23 18:45
Discharge Date and Time
Print Language: MEXICAN
--- NOTE | 2023-09-26 20:59 | HPS.HSE ---
Family Physician
-
Family Physician: Kodak Rubio
Chief Complaint
-
SoB and chest discomfort
History of Present Illness
78M HX Chr HFpEF/Chr diastolic HF, persistent AF post PVI from 2016 recent admissio on 08/24/23 - 08/[facility] for [facility] field [facility] for recurrent atrial fibrillation post PVI from 2017 seen at ER for evaluation of SoB. She just
came back from family vacation at [place].
SOB
- just came back from family vacation at [place]. She drove back
- PCP increased PO Lasix from 40mg to 80mg BID for 3 days
- associated with chest discomfort with exertion
- felt swollen abdomen
ROS
Denies any fever, chills, chest pain toda
Medical History
Past Medical History
Past Medical History: Reports Other
Additional Past Medical History:
Symptomatic persistent atrial fibrillation and atrial flutter.
Previous pulmonary vein isolation in 2016.
Status pulsed field ablation (PFA), 08/24/2023.
Post procedure Tikosyn load.
Chronic diastolic heart failure with preserved ejection fraction, 69%.
Takotsubo cardiomyopathy with recovered EF, 2005.
Nonischemic cardiomyopathy.
Hyperlipidemia.
Hypertension.
Mitral regurgitation.
Vertigo.
Lung nodule from 2021, stable.
Anemia.
Chronic hyponatremia.
Lower extremity cellulitis.
Past Surgical History: Reports Other
Additional Past Surgical History:
ablations
Cardioversion
Hernia repair bilateral
Left breast lumpectomy)
Social History
Tobacco: Former Smoker
Alcohol: None
Drug: None
Family History
Family History: Not pertinent
Allergies / Home Medications
Allergies reflects when Allergies were last updated in [facility].
Home Medications with original date entered in [facility]
Allergy/Medication List:
Allergies
Allergy/AdvReac Type Severity Reaction Status Date / Time
Antihistamines Allergy Rash Verified 09/26/23 17:42
Cephalosporins Allergy Rash Verified 09/26/23 17:42
diphenhydramine Allergy Pt denies Verified 09/26/23 17:42
hydrochlorothiazide Allergy Rash Verified 09/26/23 17:42
penicillin G Allergy Rash Verified 09/26/23 17:42
penicillin V Allergy Rash Verified 09/26/23 17:42
Penicillins Allergy Rash Verified 09/26/23 17:42
Home Medications
Ca 600 mg-D3 20 mcg-mag oxide 50 ia-Zv-oltrfj-manganese-boron tablet (Calcium 600-D3 Plus (mag-zinc)) 1 tab PO DAILY Supplement 07/20/16
ascorbic acid (vitamin C) 1,000 mg tablet (Vitamin C) 1,000 mg PO DAILY Supplement 07/20/16
aspirin 81 mg tablet,delayed release 81 mg PO HS blood thinner 05/17/23
hydralazine 25 mg tablet 25 mg PO BID bp 05/17/23
vitamin B complex 1 tab PO DAILY Supplement 05/17/23
apixaban 2.5 mg tablet (Eliquis) 2.5 mg PO BID afib 07/19/23
cholecalciferol (vitamin D3) 125 mcg (5,000 unit) tablet (Vitamin D3) 125 mcg PO DAILY Supplement 07/19/23
cyanocobalamin (vitamin B-12) 1,000 mcg tablet (Vitamin B-12) 1,000 mcg PO DAILY Supplement 07/19/23
ezetimibe 10 mg tablet (Zetia) 10 mg PO DAILY cholesterol 07/19/23
metoprolol succinate 25 mg tablet,extended release 24 hr 12.5 mg PO HS bp 07/19/23
omega 1-ihr-ewd-fish oil 1,200 mg (144 mg-216 mg) capsule (Fish Oil) 1 cap PO DAILY Supplement 07/19/23
pitavastatin calcium 1 mg tablet (Livalo) 1 mg PO MOWEFR cholesterol 07/19/23
potassium chloride 20 mEq tablet,extended release(part/cryst) 20 meq PO DAILY Supplement 07/19/23
dofetilide 125 mcg capsule 125 mcg PO Q12H #180 caps 08/26/23
Tart Monroe 2 cap PO DAILY 09/26/23
furosemide 40 mg tablet 40 mg PO DAILY 09/26/23
Review of Systems
-
Constitutional: Reports No Symptoms
EENT: Reports No Symptoms
Respiratory: Reports See HPI
Cardiac: Reports No Symptoms
Abdomen/GI: Reports No Symptoms
: Reports No Symptoms
Musculoskeletal: Reports No Symptoms
Skin: Reports No Symptoms
Neurological: Reports No Symptoms
Endocrine: Reports No Symptoms
Hematologic/Lymphatic: Reports No Symptoms
Psych: Reports No Symptoms
Physical Exam
Vital Signs
Vital Signs
Temp Pulse Resp BP Pulse Ox
97.8 F 71 19 151/98 99
09/26/23 17:42 09/26/23 20:30 09/26/23 20:28 09/26/23 20:28 09/26/23 20:30
Physical Exam
General: Well Developed, Well Nourished (thin ), No Apparent Distress, Comfortable and Conversant
HEENT: NormoCephalic, Moist mucous membranes and Atraumatic
Respiratory: Other (decresed air entry at Lt base , toracic kyphosis)
Cardiac: S1/S2, Regular Rhythm and Peripheral Edema; No Murmur or Rub
GI: Soft, Non Tender, Non Distended and Normal Bowel Sounds; No Organomegaly
Rectal: Deferred by Provider
Musculoskeletal: No Clubbing, No Cyanosis and No Edema
Skin: No Rash
Neuro: Nonfocal/grossly intact
Psych: Calm and Intact Judgment/Insight
Laboratory Results
-
09/26/23 18:02
09/26/23 18:02
Laboratory Results
Total Bilirubin 0.4 mg/dl (0.2-1.3) 09/26/23 18:02
AST 45 U/L (14-36) H 09/26/23 18:02
ALT 22 U/L (0-35) 09/26/23 18:02
Alkaline Phosphatase 85 U/L (38-126) 09/26/23 18:02
Troponin I 0.020 ng/ml 09/26/23 18:02
Data Reviewed
-
Diagnostic Radiology: Report Reviewed by me
Medical Tests (Nuc Med, Echo, EKG etc): Report Reviewed by me
Lab Data: Labs Reviewed by me
Old Records: Reviewed
Impression/Plan
-
Wt 62.8 kg ( 08/25) ----> 63.8 ( 09/26/23) PLUS 1kg
Data
Hgb 11.4
Na 130 - baseline hi 120s to low 130s
AST 45
Alb 2.7
NEG TPNI
Pro BNP 2190 - was 3170 on 07/18/23
EKG report
ATRIAL FIBRILLATION
LOW VOLTAGE QRS
NONSPECIFIC T WAVE ABNORMALITY
ABNORMAL ECG
WHEN COMPARED WITH ECG OF 26-AUG-2023 10:38,
ATRIAL FIBRILLATION HAS REPLACED SINUS RHYTHM
NON-SPECIFIC CHANGE IN ST SEGMENT IN ANTERIOR LEADS
NONSPECIFIC T WAVE ABNORMALITY, WORSE IN ANTERIOR LEADS
09/26/23 CXR my view
Moderate Lt Pleral effusion
05/18/23 CXR
Interval decrease in size of left pleural effusion following thoracentesis. No evidence for pneumothorax.
Last admission:08/24/23 - 08/27/23 from [facility]
ASSESSMENT & PLAN
SoB
Symptomatic recurrent moderate Lt Pleural effusion
HX Lt sided thoracentesis on 05/18/23
- IR consulted for Lt sided thoracentesis - therapeutic and dx-tic
- Pul consult
Chronic HFpEF exacerbation with pleural effusion/ascites
Borderline volume expansion - gained 1 kg over 4 weeks
History of Takotsubo cardiomyopathy
- for Lt Thoracentesis
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
- daily Wt
- [facility] card consult
Chronic macrocytic anemia likely due to anemia of chronic disease
-Recently tested heme-negative in the ER on 05/13 as well as in primary care physician's office
-Hemoglobin relatively stable over the past 2 years and no suggestion of bleeding
-Hemoglobin stable 10.5
-Check Hemoccult, iron studies, B12, folate
Mild chronic hyponatremia in the setting of CHF exacerbation
- Observe with diuresis
- Fluid restriction 40 ounces
Paroxysmal AF
- on Eliquis
- cont. metoprolol
- cont. aspirin
Essential HTN
- cont. hydralazine
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
Celiac disease
HX pancreatitis
Hyperlipidemia
- Cont. statin
DVT Px: Eliquis
Code: Full code
IP TLM
[2023-09-26 21:53] LABS: PT 11.9 Sec (11.4-14.6)
[2023-09-26] MEDS: FLUSH (NSS) 1 FLUSH IV (22:30)
[2023-09-26] MEDS: LASIX 40 MG IV (22:30)
[2023-09-26] MEDS: TIKOSYN 125 MCG PO (23:17)
[2023-09-26] MEDS: ASPIR LOW (ENTERIC COATED) 81 MG PO (23:18)
[2023-09-26] MEDS: TOPROL XL 12.5 MG PO (23:18)
[2023-09-26 23:27] LABS: Hematocrit 28.2 % (37.0-47.0)
[2023-09-26 23:45] LABS: Glucose 121 mg/dl (70-99); LDH 196 U/L (120-246); Total Protein 5.6 g/dl (6.3-8.2)
[2023-09-27] VITALS (10 sets, daily range): BP systolic 67–153; BP diastolic 56–82; PULSE 71; O2SAT 98; BMI 22.2; BMI 22.1
--- NOTE | 2023-09-27 00:14 | PTCARENOTE ---
PT IS AAOX3, NO C/O PAIN. PT ORIENTED TO ROOM W/ CALL KEN IN REACH.
[2023-09-27 05:22] LABS: % Basophils 0.7 % (0-2); % Eosinophils 1.9 % (0-6); % Immature Granulocytes 0.2 % (0-0.5); % Lymphocytes 30.1 % (20.5-51.1); % Neutrophils 58.1 % (42.2-75.2); Absolute Basophils 0.1 10^3/uL (0-0.2); Absolute Eosinophils 0.2 10^3/uL (0-0.7); Absolute Lymphocytes 2.4 10^3/uL (1.2-3.4); Absolute Monocytes 0.7 10^3/uL (0.1-0.6); Absolute Neutrophils 4.7 10^3/uL (1.4-6.5); Hematocrit 27.5 % (37.0-47.0); Hemoglobin 9.3 g/dL (12.0-16.0); Mean Corp Hgb Conc. 33.8 g/dL (33.0-37.0); Mean Corpuscular Hgb 33.5 pg (27.0-31.0); Mean Corpuscular Volume 98.9 fL (81.0-99.0); Mean Platelet Volume 9.6 fL (7.4-10.4); Nucleated Red Blood Cells % 0 %; Platelet Count 372 10^3/uL (130-400); Red Blood Cell Count 2.78 10^6/uL (4.20-5.40); Red Cell Dist. Width 15.3 % (11.5-14.5); White Blood Cell Count 8.1 10^3/uL (4.8-10.8)
[2023-09-27 05:50] LABS: ALT (SGPT) 17 U/L (0-35); AST (SGOT) 31 U/L (14-36); Albumin 2.2 g/dl (3.5-5.0); Alkaline Phosphatase 80 U/L (38-126); Blood Urea Nitrogen 25 mg/dl (7-17); Calcium 8.2 mg/dl (8.4-10.2); Carbon Dioxide 28 mmol/L (22-30); Chloride 101 mmol/L (98-107); Estimated Creatinine Clearance 47 ml/min; Glucose 111 mg/dl (70-99); Potassium 3.5 mmol/L (3.5-5.1); Sodium 132 mmol/L (135-145); Total Bilirubin 0.2 mg/dl (0.2-1.3); Total Protein 5.2 g/dl (6.3-8.2); eGFR > 60.00
[2023-09-27] MEDS: VITAMIN B-12 1000 MCG PO (07:49)
[2023-09-27] MEDS: VITAMIN C 1000 MG PO (07:49)
[2023-09-27] MEDS: VITAMIN D3 (cholecalciferol) 125 MCG PO (07:49)
[2023-09-27] MEDS: KCL 20 MEQ PO (07:49)
[2023-09-27] MEDS: TIKOSYN 125 MCG PO ×2 (07:49→19:50)
[2023-09-27] MEDS: ELIQUIS 2.5 MG PO ×2 (07:49→19:50)
[2023-09-27] MEDS: B COMPLEX w/VITAMIN C 1 CAPLET PO (07:50)
[2023-09-27] MEDS: ZETIA 10 MG PO (07:58)
[2023-09-27] MEDS: APRESOLINE 25 MG PO ×2 (07:58→19:50)
--- NOTE | 2023-09-27 09:18 | CON.PUL ---
Consultation
Consultation Request
Date/Time Consultation Requested: 09/27/23
Date/Time Consultation Performed: 09/27/23
Performing Provider: Aubrie
Reason for Consultation: Pleural effusion
Medical History
-
History of Present Illness:
Patient is an 78-year-old female with previous history of chronic heart failure with preserved ejection fraction, persistent AF, carotid disease, hyperlipidemia, hypertension presenting to ER for evaluation of shortness of breath. She is
recently returned home from a family vacation from [place], she has associated chest discomfort with exertion. Chest x-ray obtained demonstrating bilateral pleural effusions, she is notably 100% on room air.
She has undergone thoracentesis in past, never sent for evaluation studies. She did feel relief on last thoracentesis.
Past Medical History
Past Medical History: Other (see below)
Social History
Tobacco: Former Smoker
Alcohol: None
Drug: None
Family History
Family History: Reviewed & Not Pertinent
Allergies / Home Medications
Allergies
Allergy/AdvReac Type Severity Reaction Status Date / Time
Antihistamines Allergy Rash Verified 09/26/23 17:42
Cephalosporins Allergy Rash Verified 09/26/23 17:42
diphenhydramine Allergy Pt denies Verified 09/26/23 17:42
hydrochlorothiazide Allergy Rash Verified 09/26/23 17:42
penicillin G Allergy Rash Verified 09/26/23 17:42
penicillin V Allergy Rash Verified 09/26/23 17:42
Penicillins Allergy Rash Verified 09/26/23 17:42
Home Medications
�Medication �Instructions �Recorded �Confirmed �Last Taken �Type
Ca 600 mg-D3 20 mcg-mag oxide 50 1 tab PO DAILY Supplement 07/20/16 09/26/23 09/26/23 History
sk-Ig-xvezbi-manganese-boron
tablet (Calcium 600-D3 Plus
(mag-zinc))
ascorbic acid (vitamin C) 1,000 mg 1,000 mg PO DAILY Supplement 07/20/16 09/26/23 09/26/23 History
tablet (Vitamin C)
aspirin 81 mg tablet,delayed 81 mg PO HS blood thinner 05/17/23 09/26/23 09/25/23 History
release
hydralazine 25 mg tablet 25 mg PO BID bp 05/17/23 09/26/23 09/26/23 History
vitamin B complex 1 tab PO DAILY Supplement 05/17/23 09/26/23 09/26/23 History
apixaban 2.5 mg tablet (Eliquis) 2.5 mg PO BID afib 07/19/23 09/26/23 09/26/23 History
cholecalciferol (vitamin D3) 125 125 mcg PO DAILY Supplement 07/19/23 09/26/23 09/26/23 History
mcg (5,000 unit) tablet (Vitamin
D3)
cyanocobalamin (vitamin B-12) 1,000 mcg PO DAILY Supplement 07/19/23 09/26/23 09/26/23 History
1,000 mcg tablet (Vitamin B-12)
ezetimibe 10 mg tablet (Zetia) 10 mg PO DAILY cholesterol 07/19/23 09/26/23 09/26/23 History
metoprolol succinate 25 mg 12.5 mg PO HS bp 07/19/23 09/26/23 09/25/23 History
tablet,extended release 24 hr
omega 9-zjc-wwa-fish oil 1,200 mg 1 cap PO DAILY Supplement 07/19/23 09/26/23 09/26/23 History
(144 mg-216 mg) capsule (Fish Oil)
pitavastatin calcium 1 mg tablet 1 mg PO MOWEFR cholesterol 07/19/23 09/26/23 09/26/23 History
(Livalo)
potassium chloride 20 mEq 20 meq PO DAILY Supplement 07/19/23 09/26/23 09/26/23 History
tablet,extended release(part/cryst)
dofetilide 125 mcg capsule 125 mcg PO Q12H #180 caps 08/26/23 09/26/23 09/26/23 Rx
Tart [place] 2 cap PO DAILY 09/26/23 09/26/23 09/26/23 History
furosemide 40 mg tablet 40 mg PO DAILY 09/26/23 09/26/23 09/26/23 History
Review of Systems
-
History Source: Patient
All other systems: Negative unless noted
Vitals / Labs / Diagnostic Testing
Vital Signs
Temp Pulse Resp BP Pulse Ox
97.5 F 76 12 131/59 98
09/27/23 07:19 09/27/23 07:58 09/27/23 07:19 09/27/23 07:58 09/27/23 07:19
Lab Data
09/27/23 05:14
09/27/23 05:14
Laboratory Results
09/26/23
20:43
PT 11.9
INR 0.90
Diagnostic Testing:
Physical Exam
-
HEENT: Normocephalic, Anicteric and Moist Mucous Membranes
Cardiovascular: S1/S2, Regular Rhythm and Peripheral Edema (1+)
Respiratory: Clear (decreased BS on L) and Non-Labored Respirations
GI: Soft, Non Distended and Non Tender
Neurology: Awake, Alert, Oriented, AO x 3 and No Motor Deficits
Skin: Warm, Dry and Good Color
General: Comfortable, Good Appetite and Other (NAD)
Assessment
-
Patient is an 78-year-old female with previous history of chronic heart failure with preserved ejection fraction, persistent AF, carotid disease, hyperlipidemia, hypertension presenting to ER for evaluation of shortness of breath. She is
recently returned home from a family vacation from [place], she has associated chest discomfort with exertion. Chest x-ray obtained demonstrating bilateral pleural effusions, she is notably 100% on room air.
She has undergone thoracentesis in past, never sent for evaluation studies. We are consulted for eval 09/27/23.
Acute on chronic pleural effusion
Acute onset SOB
Acute DHF exac with pEF
Hyponatremia, mild
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
Bilateral pleural effusions s/p L thoracentesis, 750 cc of clear yellow pleural fluid 05/18/23
Never sent for fluid studies, presumed transudate
Celiac Disease 1975
Takotsobu cardiomyopathy-recovered EF
s/p CARDIOGENIC SHOCK 04/08/05 EF 20% IMPROVED TO 50 % 04/09/[address]
Hiatal hernia
Lyme disease
Carotid Disease
Hypertension
PANCREATITIS 2005
Irritable bowel disease
CHF
SVT/Paroxysmal atrial fibrillation s/p Cardioversion 06/18/2016
Endometrial polyps s/p D & C, polypectomy
HYPERLIPIDEMIA - MIXED
Fracture right foot/ankle in Feb 2018
Lymphocytic Colitis
Ambulatory dysfunction/Balance issues
Inguinal herniographies xs 2 02/25/2011
Vein removal in Lt. inner foot 2020
Bilateral cataract surgeries 2020
History of pancreatitis 2005
Plan
No oxygen was needed on admission, currently saturating >95% on RA
Has not needed to use at home
Prior history of lung disease is noted including emphysema, mild on CT
Former smoker
No prior PFTs for review, but suspect some COPD
Suspect patient has pleural effusion from refractory CHF exacerbation
She has been maintained on 80mg lasix and metolazone without improvement
Prior thora done without studies
CXR/CT obtained indicating recurrent large L sided effusion
IR consult for tap, agree with this
Please send for cell count, culture, cyto
Other imaging reviewed
Known to cards
Prior ECHO results are reviewed indicating stage II DD
proBNP >2000
Resumed on diuresis
Will need outpatient pulmonary evaluation in our office for PFTs and 6MWT
Can arrange as needed outpatient thoras as well
We have briefly discussed use of pleurx if needed
Reviewed with patient
We will follow
Diagnostic Data
Chest X-Ray: 09/26/23- Large left pleural effusion. Small right pleural effusion.
05/18/23- Interval decrease in size of left pleural effusion following thoracentesis. No evidence for pneumothorax.
CT Scan: CAP 05/19/23- CHEST: 1. Small bilateral pleural effusions. 2. Mild centrilobular emphysema. 3. Mildly enlarged precarinal and subcarinal lymph nodes in the mediastinum, nonspecific. 4. Mild cardiac enlargement.
5. Severe coronary artery calcifications.
ABDOMEN/PELVIS: 1. Moderate to large colonic stool burden, which can be seen with constipation. 2. Punctate bilateral nephrolithiasis and chronic bilateral renal cortical thinning/scarring. 3. Severe aortobiiliac calcified atherosclerosis.
AVTAR 07/19/23- Normal left ventricular systolic function. Left ventricular ejection fraction is 55-60%. Mild mitral regurgitation. Mild tricuspid regurgitation. No intracardiac mass or thrombus formation seen. No significant change since the prior
study of May 2023.
TTE: 05/18/23- Mild concentric left ventricular hypertrophy. Normal left ventricular chamber size. Normal left ventricular systolic function. Left ventricular ejection fraction is 69% by volumetric assessment. Stage II diastolic dysfunction
suggestive of abnormal relaxation and increased filling pressures. Normal right ventricular size and function. Indexed LA volume is severely abnormal (> 48 mL/m2). Moderately dilated right atrium. Mild to moderate mitral regurgitation. Mild
tricuspid regurgitation. Estimated pulmonary artery pressure of 36 mmHg, assuming a right atrial pressure of 3 mmHg. Trivial to small pericardial effusion. Pleural effusion present. Compared to the previous echo 10/25/22, there is no significant
change. Consider repeat imaging with global longitudinal strain to better assess LVH and myocardial pathology.
PFT's:
Reports and relevant images were personally reviewed.
Total time spent on this consultation __75__ includes review of history, physical exam, medications, laboratory data, personal review of imaging, extensive review of outpatient records, discussion with care team and respiratory therapy.
--- NOTE | 2023-09-27 10:18 | CON.CAR ---
Addendum entered and electronically signed by Parul Carolina MD 09/27/23 12:09:
I saw and examined the patient.
The Net Ui Developer's note was reviewed and I agree with the note.
Comment: Briefly patient is a 78-year-old female with past medical history of hypertension, hyperlipidemia, renal nephrosis, longstanding hyponatremia, recurrent left-sided pleural effusion s/p thoracentesis in May 2023, Takotsubo cardiomyopathy
with recovered LVEF in 2005, chronic heart failure with preserved ejection fraction, persistent atrial fibrillation status post PVI in 2016 and a ablation on August 24, 2023, maintained on Tikosyn therapy and chronic Eliquis who presents with
progressive shortness of breath found to be in heart failure with recurrent left-sided pleural effusion. She has mostly been in sinus rhythm however does have intermittent paroxysms of atrial fibrillation with ECG showing A-fib. Initial troponin
was negative. In the emergency department she was given 40 mg of IV Lasix. She has noted worsening lower extremity edema. She denies any chest discomfort.
Vital signs and lab work reviewed. On exam patient is pleasant, frail, cachectic, oriented x 3, regular rate, normal S1 and S2, decreased breath sounds at bilateral bases, worse on the left than the right, abdomen is distended but soft, nontender
with active bowel sounds,, warm extremities, 1-2+ pitting edema in dependent areas, sacral as well as the back of her thighs.
Of note, albumin is also significantly low at 2.2, mildly elevated proBNP, stable renal function.
Recommendations:
1. Continue with IV diuresis with close monitoring of ins and outs, daily upright weights. Close monitor renal function and electrolytes with repletion as needed.
2. Consider repeat thoracentesis for left-sided pleural effusion if feasible technically.
3. Nutrition consult given significant hypoalbuminemia which is likely contributing to third spacing fluid as well.
4. With intermittent paroxysms of atrial fibrillation, discuss with electrophysiology if there is any utility in increasing Tikosyn dosing with close monitoring of renal function and QTc.
5. Out of bed into a chair, encourage incentive spirometry, PT/OT
Parul Carolina MD, [facility], [facility]
Original Note:
Consultation
Consultation Request
Date/Time Consultation Requested: 09/26/2023
Date/Time Consultation Performed: 09/27/2023
Requesting Provider: Dr. Cunningham
Performing Provider: Orquidea Storey PA-C for Dr. Carolina
Reason for Consultation: Shortness of breath, atrial fibrillation, pleural effusion
Medical History
-
History of Present Illness:
Patient is an 78-year-old female with past medical history of persistent atrial fibrillation and flutter status post prior PVI ablation 2016 with repeat pulsed field ablation 08/24/2023 currently on antiarrhythmic drug therapy with Tikosyn, chronic
anticoagulation on Eliquis, recovered Takotsubo cardiomyopathy, chronic heart failure with preserved ejection fraction, recurrent left pleural effusion, hypertension, hyperlipidemia and chronic anemia who presents to emergency department 09/25/2022
with complaints of worsening shortness of breath. Patient underwent pulsed field ablation on 08/24/2023 and was initiated on ADD with Tikosyn. She was discharged home in sinus rhythm. She recently was on vacation in [place] with her family and
noted worsening shortness of breath with abdominal bloating and lower extremity edema. Her outpatient dose of Lasix was increased to 40 mg twice a day without improvement of symptoms prompting her to come to the emergency department. proBNP was
found to be 2190. Chest x-ray showed moderate left pleural effusion. EKG showed atrial fibrillation. Troponin was negative. She was provided 40 mg IV Lasix in emergency department.
Patient reports she notes some improvement of shortness of breath particularly with laying down however she still gets winded with minimal activity. Feels less bloated but not resolved completely. She denies chest pain, shortness of breath at rest
or palpitations currently.
PMH:
Persistent atrial fibrillation
Prior PVI (2016)
S/P PFA, 08/24/23
Maintained on Tikosyn
Chronic anticoagulation on Eliquis
chronic HFpEF, 69%
Takotsubo CM w/recovered EF (2005)
Recurrent left-sided pleural effusion
Status post thoracentesis 05/18/2023
HLD
HTN
MR
Renal nephrosis
Vertigo Edema
Lung Nodule (2021, stable)
Anemia
Hyponatremia
LE cellulitis (05/14/23)
Past Medical History
Past Medical History: Other (See HPI)
Past Surgical History: Cardiac (PVI ablation 2016, pulsed field ablation 08/24/2023) and Other (Bilateral hernia repair, left breast lumpectomy, cataract extraction)
Social History
Tobacco: Former Smoker
Alcohol: None
Drug: None
Living: With Family
Family History
Family History: CAD and Hypertension
Allergies / Home Medications
Allergy/AdvReac Type Severity Reaction Status Date / Time
Antihistamines Allergy Rash Verified 09/26/23 17:42
Cephalosporins Allergy Rash Verified 09/26/23 17:42
diphenhydramine Allergy Pt denies Verified 09/26/23 17:42
hydrochlorothiazide Allergy Rash Verified 09/26/23 17:42
penicillin G Allergy Rash Verified 09/26/23 17:42
penicillin V Allergy Rash Verified 09/26/23 17:42
Penicillins Allergy Rash Verified 09/26/23 17:42
�Medication �Instructions �Recorded �Confirmed �Type
Ca 600 mg-D3 20 mcg-mag oxide 50 1 tab PO DAILY Supplement 07/20/16 09/26/23 History
cp-Gs-akaxri-manganese-boron
tablet (Calcium 600-D3 Plus
(mag-zinc))
ascorbic acid (vitamin C) 1,000 mg 1,000 mg PO DAILY Supplement 07/20/16 09/26/23 History
tablet (Vitamin C)
aspirin 81 mg tablet,delayed 81 mg PO HS blood thinner 05/17/23 09/26/23 History
release
hydralazine 25 mg tablet 25 mg PO BID bp 05/17/23 09/26/23 History
vitamin B complex 1 tab PO DAILY Supplement 05/17/23 09/26/23 History
apixaban 2.5 mg tablet (Eliquis) 2.5 mg PO BID afib 07/19/23 09/26/23 History
cholecalciferol (vitamin D3) 125 125 mcg PO DAILY Supplement 07/19/23 09/26/23 History
mcg (5,000 unit) tablet (Vitamin
D3)
cyanocobalamin (vitamin B-12) 1,000 mcg PO DAILY Supplement 07/19/23 09/26/23 History
1,000 mcg tablet (Vitamin B-12)
ezetimibe 10 mg tablet (Zetia) 10 mg PO DAILY cholesterol 07/19/23 09/26/23 History
metoprolol succinate 25 mg 12.5 mg PO HS bp 07/19/23 09/26/23 History
tablet,extended release 24 hr
omega 7-jnv-jpv-fish oil 1,200 mg 1 cap PO DAILY Supplement 07/19/23 09/26/23 History
(144 mg-216 mg) capsule (Fish Oil)
pitavastatin calcium 1 mg tablet 1 mg PO MOWEFR cholesterol 07/19/23 09/26/23 History
(Livalo)
potassium chloride 20 mEq 20 meq PO DAILY Supplement 07/19/23 09/26/23 History
tablet,extended release(part/cryst)
dofetilide 125 mcg capsule 125 mcg PO Q12H #180 caps 08/26/23 09/26/23 Rx
Tart [place] 2 cap PO DAILY 09/26/23 09/26/23 History
furosemide 40 mg tablet 40 mg PO DAILY 09/26/23 09/26/23 History
Review of Systems
-
History Source: Patient
All other systems: Negative unless noted
Physical Exam
Vital Signs
Temp Pulse Resp BP Pulse Ox
97.5 F 76 12 131/59 98
09/27/23 07:19 09/27/23 07:58 09/27/23 07:19 09/27/23 07:58 09/27/23 07:19
GEN: No distress, awake, Ox3, thin appearing
HEENT: supple, anicteric, mmm
LUNGS: Absent breath sounds approximately half-way up on left side mildly decreased at right base otherwise CTA, no wheezes/rales: On room air
CV: Reg, S1/S2, no murmur
ABD: soft, BS+, NT/ND
EXT: Dependent edema in upper thighs no edema noted in lower legs below the knees
NEURO: Gross non-focal
SKIN: No rash, warm, dry, pink
Lab Results
09/27/23 05:14
09/27/23 05:14
Troponin I 0.020 ng/ml 09/26/23 20:43
Dyq-G-Bumdaytnneb Pept 2190 pg/ml 09/26/23 18:02
Impression / Plan
-
PCP: Kodak Rubio MD
Cottage Parent: Kiera Diaz MD
Franchise Sales Manager: Justin Diaz
IMPRESSION:
Presented 09/26/2023 with shortness of breath, edema
Recurrent left pleural effusion
Symptomatic atrial fibrillation
Acute on chronic heart failure, proBNP 2190
Hypoalbuminemia
Persistent atrial fibrillation
Prior PVI (2016)
S/P PFA, 08/24/23
Maintained on Tikosyn
Chronic anticoagulation on Eliquis
chronic HFpEF, 69%
Takotsubo CM w/recovered EF (2005)
Recurrent left-sided pleural effusion
Status post thoracentesis 05/18/2023
HLD
HTN
MR
Renal nephrosis
Vertigo Edema
Lung Nodule (2021, stable)
Anemia
Hyponatremia
LE cellulitis (05/14/23)
Echo 05/18/2023: EF 69%, stage II diastolic dysfunction. Moderately dilated right atrium. Mild to moderate MR. Mild TR. PAP 36 mmHg. Small pericardial effusion.
Plan:
-Presented 09/26/2023 with shortness of breath, edema
-Acute on chronic heart failure with preserved ejection fraction, proBNP 2190
-Would continue IV diuresis with Lasix 40 mg daily.
-Potassium 3.5, replete
-Recurrent left-sided pleural effusion -IR has been consulted for thoracentesis
-Patient complains of swelling that is worse at the end of the day particularly and is noted to havelow protein and albumin level. Concern for malnutrition with possible third spacing. Consider dietary consultation
-Paroxysmal atrial fibrillation. Patient initially presented in atrial fibrillation however is currently in sinus rhythm. Recent pulsed field ablation. Paroxysms of atrial fibrillation is common for the first 2 to 3 months following ablation.
Continue Tikosyn and Eliquis
-Workup in process for possible amyloidosis, consider echo with strain and pyophosphate scanning however this can be done as outpatient
Plan discussed with patient and son who is at bedside.
HPI:
Patient is an 78-year-old female with past medical history of persistent atrial fibrillation and flutter status post prior PVI ablation 2017 with repeat pulsed field ablation 08/24/2023 currently on antiarrhythmic drug therapy with Tikosyn, chronic
anticoagulation on Eliquis, recovered Takotsubo cardiomyopathy, chronic heart failure with preserved ejection fraction, recurrent left pleural effusion, hypertension, hyperlipidemia and chronic anemia who presents to emergency department 09/25/2022
with complaints of worsening shortness of breath. Patient underwent pulsed field ablation on 08/24/2023 and was initiated on ADD with Tikosyn. She was discharged home in sinus rhythm. She recently was on vacation in [place] with her family and
noted worsening shortness of breath with abdominal bloating and lower extremity edema. Her outpatient dose of Lasix was increased to 40 mg twice a day without improvement of symptoms prompting her to come to the emergency department. proBNP was
found to be 2190. Chest x-ray showed moderate left pleural effusion. EKG showed atrial fibrillation. Troponin was negative. She was provided 40 mg IV Lasix in emergency department.
Patient reports she notes some improvement of shortness of breath particularly with laying down however she still gets winded with minimal activity. Feels less bloated but not resolved completely. She denies chest pain, shortness of breath at rest
or palpitations currently.
Data Reviewed
-
EKG: Report Reviewed by me, Discussed with Physician, Discussed with Patient and Discussed with Family
Radiology: Report Reviewed by me, Discussed with Physician, Discussed with Patient and Discussed with Family
Labs: Labs Reviewed by me, Discussed with Physician, Discussed with Patient and Discussed with Family
Old Records: Reviewed
--- NOTE | 2023-09-27 13:19 | W.PN.HOSP.TC ---
Today's Communication/Plan
-
IRAD for thoracentesis
cont diuretics
Assessment / Plan
Assessment / Plan
78yo F with PMHx of Afib, anemia, HTN, HLD, hyponatremia, Takotsubo CM came with worsening SOB 2/2 recurrent pleural effusion. It was initially drained in May 2023 and thought to be 2/2 CHF. Patient had also Hx of ablation 1 month ago for afib.
Managed for CHF exacerbation
A/P:
#Dyspnea with minimal exertion 2/2 Recurrent pleural effusion L>R 2/2 acute on chronic HFpEF exacerbation
#Persistaent Afib
IRAD for thoracentesis:Ph, cytology, Cx, LDH, Protein ordered
Cardio consult: cont diuresis, daily weight, low sodium diet, I&O
Telemetry
Cont Tikosyn
#Chronic anemia
#Essential HTN
#HLD
#Celiac disease
cont home meds
DVT ppx Eliquis
FUll code
I have spent at least 56 min reviewing chart, test results, communication with consultants and direct patient care
Anticipated Discharge: 24 - 48 hours
Subjective/Interval History
-
Date of Service: September 27, 2023
Objective Data
-
Labs:
Laboratory Results
09/27/23
05:14
WBC 8.1
Hgb 9.3 L
Hct 27.5 L
Plt Count 372
Sodium 132 L
Potassium 3.5
Chloride 101
Carbon Dioxide 28
BUN 25 H
Creatinine 0.9
Glucose 111 H
Calcium 8.2 L
Total Bilirubin 0.2
AST 31
ALT 17
Alkaline Phosphatase 80
Vital Signs:
Vital Signs
Temp Pulse Resp BP Pulse Ox
98.2 F 80 20 124/63 95
09/27/23 12:00 09/27/23 12:00 09/27/23 12:00 09/27/23 12:00 09/27/23 12:00
I&O
09/26/23 09/27/23 09/28/23
06:59 06:59 06:59
Intake Total 240 / 240
Output Total 900 / 900
Balance -660 / -660
Review of Systems
-
History Source: Patient
Respiratory: Reports Trouble Breathing
Physical Exam
-
General: Well Nourished and No Apparent Distress
HEENT: Normocephalic and Atraumatic
Respiratory: Crackles and Decreased Breath Sounds
Cardiac: Irregular Rhythm
GI: Soft, Nontender and Nondistended
Genito-urinary: No Costovertebral Tender
Musculoskeletal: No Clubbing, No Cyanosis, Edema, Right Lower Extrem and Edema, Left Lower Extrem
Skin: Warm
Neuro: Awake, Alert, Oriented and AO x 3
Psych: Calm
--- NOTE | 2023-09-27 14:38 | CM ---
CM attempted to meet with pt- off unit for procedure
Meeting with son/All bedside
Pt resides with her grandson and his spouse in a 2[address] with 1 ELENA, full flight to 2nd floor
Son/All lives next door
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
Scheduled to start outpt therapy in October
PCP- Robb Rubio
Rx- Jessica Epperson
Per PT/OT, outpatient therapy recommended on dc
Discharge Disposition- home with outpt therapy
[2023-09-27 15:10] LABS: Body Fluid Mononuclear 81.6 %; Body Fluid Polymorphonuclear 18.4 %; Body Fluid WBC 352 /CUMM
[2023-09-27 15:11] LABS: Body Fluid Second Tech EM
[2023-09-27 15:14] LABS: Body Fluid Amylase 73 U/L; Body Fluid Glucose 119 mg/dl; Body Fluid LDH < 90 U/L; Body Fluid Protein < 2.0 g/dl; Body Fluid Triglycerides < 30 mg/dl
[2023-09-27] MEDS: LASIX 40 MG IV (15:41)
[2023-09-27] MEDS: KCL 40 MEQ PO (15:41)
[2023-09-27] MEDS: TYLENOL 650 MG PO (21:38)
[2023-09-27] MEDS: TOPROL XL 12.5 MG PO (21:39)
[2023-09-27] MEDS: ASPIR LOW (ENTERIC COATED) 81 MG PO (21:39)
[2023-09-28 03:00] VITALS: BP 123/59
[2023-09-28 06:00] VITALS: BMI 21.3
[2023-09-28 07:11] VITALS: BP 133/73
[2023-09-28 08:18] LABS: % Basophils 0.7 % (0-2); % Eosinophils 2.1 % (0-6); % Immature Granulocytes 0.4 % (0-0.5); % Lymphocytes 25.9 % (20.5-51.1); % Neutrophils 61.9 % (42.2-75.2); Absolute Basophils 0.1 10^3/uL (0-0.2); Absolute Eosinophils 0.2 10^3/uL (0-0.7); Absolute Lymphocytes 1.9 10^3/uL (1.2-3.4); Absolute Monocytes 0.7 10^3/uL (0.1-0.6); Absolute Neutrophils 4.5 10^3/uL (1.4-6.5); Hematocrit 28.5 % (37.0-47.0); Hemoglobin 9.7 g/dL (12.0-16.0); Mean Corpuscular Hgb 33.9 pg (27.0-31.0); Mean Corpuscular Volume 99.7 fL (81.0-99.0); Mean Platelet Volume 9.7 fL (7.4-10.4); Nucleated Red Blood Cells % 0 %; Platelet Count 372 10^3/uL (130-400); Red Blood Cell Count 2.86 10^6/uL (4.20-5.40); Red Cell Dist. Width 15.8 % (11.5-14.5); White Blood Cell Count 7.2 10^3/uL (4.8-10.8)
[2023-09-28 08:48] LABS: ALT (SGPT) 14 U/L (0-35); AST (SGOT) 27 U/L (14-36); Albumin 2.1 g/dl (3.5-5.0); Alkaline Phosphatase 71 U/L (38-126); Blood Urea Nitrogen 23 mg/dl (7-17); Calcium 8.1 mg/dl (8.4-10.2); Carbon Dioxide 26 mmol/L (22-30); Chloride 101 mmol/L (98-107); Estimated Creatinine Clearance 47 ml/min; Glucose 118 mg/dl (70-99); Potassium 3.9 mmol/L (3.5-5.1); Sodium 132 mmol/L (135-145); Total Bilirubin 0.2 mg/dl (0.2-1.3); eGFR > 60.00
[2023-09-28] MEDS: APRESOLINE 25 MG PO ×2 (08:53→20:03)
[2023-09-28] MEDS: VITAMIN B-12 1000 MCG PO (08:53)
[2023-09-28] MEDS: TIKOSYN 125 MCG PO ×2 (08:53→20:03)
[2023-09-28] MEDS: ELIQUIS 2.5 MG PO ×2 (08:53→20:04)
[2023-09-28] MEDS: B COMPLEX w/VITAMIN C 1 CAPLET PO (08:53)
[2023-09-28] MEDS: VITAMIN C 1000 MG PO (08:53)
[2023-09-28] MEDS: KCL 20 MEQ PO ×2 (08:54→12:38)
[2023-09-28] MEDS: LASIX 40 MG IV (08:54)
[2023-09-28] MEDS: VITAMIN D3 (cholecalciferol) 125 MCG PO (08:54)
[2023-09-28] MEDS: ZETIA 10 MG PO (08:54)
--- NOTE | 2023-09-28 08:54 | W.PN.CARDCBS ---
Addendum entered and electronically signed by Brian Winkler MD 09/28/23 16:12:
I saw and examined the patient.
The Pants Presser's note was reviewed and I agree with the note.
Comment:
GEN: No distress, awake, Ox3
HEENT: supple, anicteric, mmm
LUNGS: CTA, no wheezes/rales
CV: Reg, S1/S2, 1/6 syst LSB, no gallop
ABD: soft, BS+, NT/ND
EXT: No edema
NEURO: Gross non-focal
SKIN: No rash
Plan:
Cont IV Lasix today. Feels better after thoracentesis.
Likely switch to po Lasix in AM.
Cont Tikosyn and Eliquis.
Cont tele
Original Note:
Today's Communication / Plan
-
Continue diuresis
May be ready to transition to PO lasix in AM
Replete K
Follow up will be arranged
Impression / Plan
-
PCP: Kodak Rubio MD
Control Board Operator: Kiera Diaz MD
Pitch Gatherer: Justin Diaz
IMPRESSION:
Presented 09/26/2023 with shortness of breath, edema
Acute on chronic HFpEF
Hypoalbuminemia
Persistent atrial fibrillation
Prior PVI (2016)
s/p PFA, 08/24/23
Maintained on Tikosyn
Chronic anticoagulation on Eliquis
Takotsubo CM w/recovered EF (2005)
Recurrent left-sided pleural effusion
s/p thoracentesis 05/18/2023 w/ 750 cc removed
s/p thoracentesis 09/27/2023 w/ 1500 cc removed
HLD
HTN
MR
Renal nephrosis
Vertigo Edema
Lung Nodule (2021, stable)
Anemia
Hyponatremia
LE cellulitis (05/14/23)
Echo 05/18/2023: EF 69%, stage II diastolic dysfunction. Moderately dilated right atrium. Mild to moderate MR. Mild TR. PAP 36 mmHg. Small pericardial effusion.
Plan:
-Presented 09/26/2023 with shortness of breath, edema. In acute heart failure w/ recurrent L pleural effusion.
-Diuresing with IV lasix 40mg daily. Weight down 4lbs overnight. Creat stable at 0.9.
-Likely will be ok to transition to PO lasix 40mg daily in AM.
-s/p thoracentesis 09/26 with 1.5L removed.
-Known paroxysmal atrial fibrillation w/ recent pulsed field ablation. Paroxysms of atrial fibrillation is common for the first 2 to 3 months following ablation. Continue Tikosyn and Eliquis
-K improved to 3.9. Will continue to replete w/ ongoing diuresis
-Will arrange follow up.
HPI:
Patient is an 78-year-old female with past medical history of persistent atrial fibrillation and flutter status post prior PVI ablation 2017 with repeat pulsed field ablation 08/24/2023 currently on antiarrhythmic drug therapy with Tikosyn, chronic
anticoagulation on Eliquis, recovered Takotsubo cardiomyopathy, chronic heart failure with preserved ejection fraction, recurrent left pleural effusion, hypertension, hyperlipidemia and chronic anemia who presents to emergency department 09/25/2022
with complaints of worsening shortness of breath. Patient underwent pulsed field ablation on 08/24/2023 and was initiated on ADD with Tikosyn. She was discharged home in sinus rhythm. She recently was on vacation in [place] with her family and
noted worsening shortness of breath with abdominal bloating and lower extremity edema. Her outpatient dose of Lasix was increased to 40 mg twice a day without improvement of symptoms prompting her to come to the emergency department. proBNP was
found to be 2190. Chest x-ray showed moderate left pleural effusion. EKG showed atrial fibrillation. Troponin was negative. She was provided 40 mg IV Lasix in emergency department.
Patient reports she notes some improvement of shortness of breath particularly with laying down however she still gets winded with minimal activity. Feels less bloated but not resolved completely. She denies chest pain, shortness of breath at rest
or palpitations currently.
Progress Note - Control Board Operator
Subjective
Date of Service: September 28, 2023
Feeling improved s/p thoracentesis and w/ ongoing diuresis, but not yet back to baseline.
Objective
Labs:
09/28/23 07:48
09/28/23 07:48
Labs
Hgb 9.7 g/dL (12.0-16.0) L 09/28/23 07:48
Hct 28.5 % (37.0-47.0) L 09/28/23 07:48
Plt Count 372 10^3/uL (130-400) 09/28/23 07:48
PT 11.9 Sec (11.4-14.6) 09/26/23 20:43
INR 0.90 09/26/23 20:43
Sodium 132 mmol/L (135-145) L 09/28/23 07:48
Potassium 3.9 mmol/L (3.5-5.1) 09/28/23 07:48
BUN 23 mg/dl (7-17) H 09/28/23 07:48
Creatinine 0.9 mg/dL (0.6-1.0) 09/28/23 07:48
Glucose 118 mg/dl (70-99) H 09/28/23 07:48
Troponins
09/26/23 09/26/23
18:02 20:43
Troponin I 0.020 0.020
Vital Signs and I&O:
Vital Signs
Temp Pulse Resp BP Pulse Ox
97.7 F 72 19 123/59 95
09/28/23 03:00 09/28/23 03:00 09/28/23 03:00 09/28/23 03:00 09/28/23 03:00
Vital Signs
Temp Pulse Resp BP Pulse Ox
97.7 F 72 19 123/59 95
09/28/23 03:00 09/28/23 03:00 09/28/23 03:00 09/28/23 03:00 09/28/23 03:00
Intake & Output
09/26/23 09/27/23 09/28/23 09/29/23
06:59 06:59 06:59 06:59
Intake Total 240 / 240 900 / 900
Output Total 900 / 900 1200 / 1200
Balance -660 / -660 -300 / -300
Physical Exam
Physical Exam
GEN: No distress, awake, awake, alert, oriented x3
HEENT: supple, anicteric, mmm
LUNGS:CTA b/l, no wheezes/rales
CV: Reg, S1/S2, no murmur
EXT: No clubbing or cyanosis. +1 edema b/l LE
NEURO: Gross non-focal
SKIN: No rash, warm, dry, pink
[2023-09-28] MEDS: LIPITOR 10 MG PO (08:55)
[2023-09-28] MEDS: TYLENOL 650 MG PO ×3 (09:16→22:22)
--- NOTE | 2023-09-28 09:18 | W.PN.PUL3 ---
Today's Communication / Plan
-
Doing well post thora, SOB improved
Pleural studies confirming transudative effusion, optimize medical regiment
We discussed daily weights, voiding, fluid restriction
We discussed outpatient pulmonary FU for possible COPD
Discharge planning per team
Assessment
-
Patient is an 78-year-old female with previous history of chronic heart failure with preserved ejection fraction, persistent AF, carotid disease, hyperlipidemia, hypertension presenting to ER for evaluation of shortness of breath. She is
recently returned home from a family vacation from [place], she has associated chest discomfort with exertion. Chest x-ray obtained demonstrating bilateral pleural effusions, she is notably 100% on room air.
She has undergone thoracentesis in past, never sent for evaluation studies. We are consulted for eval 09/27/23.
Acute on chronic pleural effusion
Acute onset SOB
Acute DHF exac with pEF
Hyponatremia, mild
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
Bilateral pleural effusions s/p L thoracentesis, 750 cc of clear yellow pleural fluid 05/18/23
Never sent for fluid studies, presumed transudate
Celiac Disease 1975
Takotsobu cardiomyopathy-recovered EF
s/p CARDIOGENIC SHOCK 04/08/05 EF 20% IMPROVED TO 50 % 04/09/[address]
Former smoker >20 pack years, quit 30 years ago
Hiatal hernia
Lyme disease
Carotid Disease
Hypertension
PANCREATITIS 2005
Irritable bowel disease
CHF
SVT/Paroxysmal atrial fibrillation s/p Cardioversion 06/18/2016
Endometrial polyps s/p D & C, polypectomy
HYPERLIPIDEMIA - MIXED
Fracture right foot/ankle in Feb 2018
Lymphocytic Colitis
Ambulatory dysfunction/Balance issues
Inguinal herniographies xs 2 02/25/2011
Vein removal in [place]. inner foot 2020
Bilateral cataract surgeries 2020
History of pancreatitis 2005
Plan
No oxygen was needed on admission, currently saturating >95% on RA
Has not needed to use at home
Prior history of lung disease is noted including emphysema, mild on CT
Former smoker
No prior PFTs for review, but suspect some COPD
Suspect patient has pleural effusion from refractory CHF exacerbation
She has been maintained on 80mg lasix and metolazone without improvement
Prior thora done without studies
CXR/CT obtained indicating recurrent large L sided effusion
IR consult for tap, agree with this
Please send for cell count, culture, cyto--reviewed pleural studies suggesting transudate
Other imaging reviewed
We discussed further medical management per team
She acknowledges she could do a better job at voiding when needing to
Known to cards
Prior ECHO results are reviewed indicating stage II DD
proBNP >2000
Resumed on diuresis
Will need outpatient pulmonary evaluation in our office for PFTs and 6MWT
Possible COPD, former smoker
Can arrange as needed outpatient thoras as well
We have briefly discussed use of pleurx if needed
Reviewed with patient
Discharge planning per team
Outpatient pulmonary FU recommended
Diagnostic Data
Chest X-Ray: 09/26/23- Large left pleural effusion. Small right pleural effusion.
05/18/23- Interval decrease in size of left pleural effusion following thoracentesis. No evidence for pneumothorax.
CT Scan: CAP 05/19/23- CHEST: 1. Small bilateral pleural effusions. 2. Mild centrilobular emphysema. 3. Mildly enlarged precarinal and subcarinal lymph nodes in the mediastinum, nonspecific. 4. Mild cardiac enlargement.
5. Severe coronary artery calcifications.
ABDOMEN/PELVIS: 1. Moderate to large colonic stool burden, which can be seen with constipation. 2. Punctate bilateral nephrolithiasis and chronic bilateral renal cortical thinning/scarring. 3. Severe aortobiiliac calcified atherosclerosis.
AVTAR 07/19/23- Normal left ventricular systolic function. Left ventricular ejection fraction is 55-60%. Mild mitral regurgitation. Mild tricuspid regurgitation. No intracardiac mass or thrombus formation seen. No significant change since the prior
study of May 2023.
TTE: 05/18/23- Mild concentric left ventricular hypertrophy. Normal left ventricular chamber size. Normal left ventricular systolic function. Left ventricular ejection fraction is 69% by volumetric assessment. Stage II diastolic dysfunction
suggestive of abnormal relaxation and increased filling pressures. Normal right ventricular size and function. Indexed LA volume is severely abnormal (> 48 mL/m2). Moderately dilated right atrium. Mild to moderate mitral regurgitation. Mild
tricuspid regurgitation. Estimated pulmonary artery pressure of 36 mmHg, assuming a right atrial pressure of 3 mmHg. Trivial to small pericardial effusion. Pleural effusion present. Compared to the previous echo 10/25/22, there is no significant
change. Consider repeat imaging with global longitudinal strain to better assess LVH and myocardial pathology.
PFT's:
Reports and relevant images were personally reviewed.
Total time spent on this consultation __55__ includes review of history, physical exam, medications, laboratory data, personal review of imaging, extensive review of outpatient records, discussion with care team and respiratory therapy.
Subjective Data
-
Date of Service:
Date of Service: September 28, 2023
Chief Complaint: Pulmonary Follow Up
Subjective:
no new events ON
feels better after tap, some chest discomfort through procedure but this has improved
remains on RA
Objective Data
Data Reviewed
Vital Signs / I&O / Oxygen:
Vital Signs
Temp Pulse Resp BP Pulse Ox
97.7 F 67 20 133/73 98
09/28/23 07:11 09/28/23 07:11 09/28/23 07:11 09/28/23 07:11 09/28/23 07:11
Intake and Output
09/27/23 09/28/23 09/29/23
06:59 06:59 06:59
Intake Total 240 / 240 900 / 900
Output Total 900 / 900 1200 / 1200
Balance -660 / -660 -300 / -300
SaO2 98
Physical Exam
General: Comfortable and Other (NAD)
HEENT: Normocephalic, Anicteric and Moist Mucous Membranes
Cardiovascular: S1-S2 and Regular Rhythm
Respiratory: Crackles and Non-Labored Respirations
GI: Soft, Non Distended and Non Tender
Neurology: Awake, Alert, Oriented, AO x 3 and No Motor Deficits
Skin: Warm, Dry and Good Color
Labs/Micro/Reports
Lab Data
09/28/23 07:48
09/28/23 07:48
Microbiology
09/27/23 14:31 Pleural Fluid Gram Stain - Preliminary
09/27/23 14:31 Pleural Fluid Fungal Culture - Preliminary
Culture in progress.
Positive cultures are reported as soon as detected.
Final report to follow in four to five weeks.
[2023-09-28 11:19] VITALS: BP 132/67
--- NOTE | 2023-09-28 11:28 | CM ---
Chart reviewed and patient is doing well with physical therapy, patient is ambulating 40 feet with no device, and recommendation is for outpatient PT/OT.
Plan; Home with outpatient therapy at home.
--- NOTE | 2023-09-28 11:33 | W.PN.HOSP.TC ---
Today's Communication/Plan
-
cont diuresis
pt/ot
Assessment / Plan
Assessment / Plan
78yo F with PMHx of Afib, anemia, HTN, HLD, hyponatremia, Takotsubo CM came with worsening SOB 2/2 recurrent pleural effusion. It was initially drained in May 2023 and thought to be 2/2 CHF. Patient had also Hx of ablation 1 month ago for afib.
Managed for CHF exacerbation
A/P:
#Dyspnea with minimal exertion 2/2 Recurrent pleural effusion L>R 2/2 acute on chronic HFpEF exacerbation
#Persistaent Afib
IRAD did thoracentesis on 09/27/23 - transudative fluid by lights criteria, path pending
Cardio consult: cont diuresis, daily weight, low sodium diet, I&O
Telemetry
Cont Tikosyn
#Chronic anemia
Previously recommended outpatient hematology follow up
stable
check B12, folate
#Essential HTN
#HLD
#Celiac disease
cont home meds
DVT ppx Eliquis
FUll code
I have spent at least 38 min reviewing chart, test results, communication with consultants and direct patient care
Anticipated Discharge: 24 - 48 hours
Subjective/Interval History
-
Date of Service: September 28, 2023
Objective Data
-
Labs:
Laboratory Results
09/28/23
07:48
WBC 7.2
Hgb 9.7 L
Hct 28.5 L
Plt Count 372
Sodium 132 L
Potassium 3.9
Chloride 101
Carbon Dioxide 26
BUN 23 H
Creatinine 0.9
Glucose 118 H
Calcium 8.1 L
Total Bilirubin 0.2
AST 27
ALT 14
Alkaline Phosphatase 71
Vital Signs:
Vital Signs
Temp Pulse Resp BP Pulse Ox
97.7 F 86 16 132/67 97
09/28/23 11:19 09/28/23 11:19 09/28/23 11:19 09/28/23 11:19 09/28/23 11:19
I&O
09/27/23 09/28/23 09/29/23
06:59 06:59 06:59
Intake Total 240 / 240 900 / 900
Output Total 900 / 900 1200 / 1200
Balance -660 / -660 -300 / -300
[2023-09-28 13:15] LABS: Folate 13.6 ng/ml (2.76-20); Vitamin B12 666 pg/ml (239-931)
[2023-09-28 15:02] VITALS: BP 113/57
[2023-09-28 19:00] VITALS: BP 133/67
[2023-09-28] MEDS: ASPIR LOW (ENTERIC COATED) 81 MG PO (22:22)
[2023-09-28] MEDS: TOPROL XL 12.5 MG PO (22:22)
[2023-09-28 23:00] VITALS: BP 133/81
[2023-09-29] VITALS (7 sets, daily range): BP systolic 103–141; BP diastolic 48–68; PULSE 114; BMI 21.7
[2023-09-29 08:06] LABS: % Basophils 0.8 % (0-2); % Eosinophils 2.6 % (0-6); % Immature Granulocytes 0.3 % (0-0.5); % Lymphocytes 34.1 % (20.5-51.1); % Monocytes 7.9 % (1.7-9.3); % Neutrophils 54.3 % (42.2-75.2); Absolute Basophils 0.1 10^3/uL (0-0.2); Absolute Eosinophils 0.2 10^3/uL (0-0.7); Absolute Lymphocytes 2.6 10^3/uL (1.2-3.4); Absolute Monocytes 0.6 10^3/uL (0.1-0.6); Absolute Neutrophils 4.2 10^3/uL (1.4-6.5); Hematocrit 28.5 % (37.0-47.0); Hemoglobin 9.7 g/dL (12.0-16.0); Mean Corpuscular Hgb 33.1 pg (27.0-31.0); Mean Corpuscular Volume 97.3 fL (81.0-99.0); Mean Platelet Volume 9.5 fL (7.4-10.4); Nucleated Red Blood Cells % 0 %; Platelet Count 396 10^3/uL (130-400); Red Blood Cell Count 2.93 10^6/uL (4.20-5.40); Red Cell Dist. Width 15.6 % (11.5-14.5); White Blood Cell Count 7.6 10^3/uL (4.8-10.8)
--- NOTE | 2023-09-29 08:21 | W.PN.CARDCBS ---
Addendum entered and electronically signed by Jose Alberto Tran MD 09/29/23 18:08:
She feels better, but still with dyspnea. She does not have history of urinary tract infections.
PMH/PSH/FH/SH: Reviewed
Allergies: Antihistamines, cephalosporins, hydrochlorothiazide, penicillin
Outpatient medications: Reviewed
Current medications: Apixaban 2.5 mg twice daily, aspirin 81 mg a day, vitamin D3, B12, dofetilide 125 twice daily ezetimibe 10 mg a day, furosemide 40 mg daily, by mouth on hold, hydralazine 25 mg twice daily, metoprolol ER 12.5 at bedtime,
atorvastatin 10 mg 3 days a week, potassium and furosemide 40 mg IV twice daily
ROS negative except as above
123/55, pulse 63, weight is 60.9 kg, intake and output -1 L
Head and neck exam unremarkable, some decreased breath sounds in bases, regular rate and rhythm, not much edema, abdomen benign, neuro nonfocal
hemoglobin 9.7, platelets 396, sodium 128, had been 132, BUN/creatinine 23 and 0.9 with a potassium of 4.5, ECG on the was A-fib with controlled ventricular response
Telemetry: Probable sinus rhythm, possible brief episodes of atrial fibrillation
Impression:
Acute on chronic HFpEF
Persistent atrial fibrillation
Prior PVI (2016)
s/p PFA, 08/24/23
Maintained on Tikosyn Chronic anticoagulation on Eliquis
Takotsubo CM w/recovered EF (2005)
Recurrent left-sided pleural effusion
s/p thoracentesis 05/18/2023 w/ 750 cc removed
s/p thoracentesis 09/27/2023 w/ 1500 cc removed
HLD
HTN
MR
Renal nephrosis
Vertigo Edema
Lung Nodule (2021, stable)
Anemia
Hyponatremia
LE cellulitis (05/14/23)
Plan:
She appears stable but still may be mildly volume overloaded. Agree with IV Lasix today.
Start Jardiance 10 mg a day. Will ask case management to diehl.
Can consider spironolactone as an outpatient.
Will need to fluid restrict given sodium of 128.
Okay to proceed with discharge planning. Anticipate discharge in the a.m.
Original Note:
Today's Communication / Plan
-
Give additional dose of IV lasix this afternoon
Likely transition to PO lasix in AM
BMP in 1 week
Will arrange follow up
Impression / Plan
-
PCP: Kodak Rubio MD
Prestidigitator: Kiera Diaz MD
Legal Financial Specialist: Justin Diaz
IMPRESSION:
Presented 09/26/2023 with shortness of breath, edema
Acute on chronic HFpEF
Hypoalbuminemia
Persistent atrial fibrillation
Prior PVI (2016)
s/p PFA, 08/24/23
Maintained on Tikosyn
Chronic anticoagulation on Eliquis
Takotsubo CM w/recovered EF (2005)
Recurrent left-sided pleural effusion
s/p thoracentesis 05/18/2023 w/ 750 cc removed
s/p thoracentesis 09/27/2023 w/ 1500 cc removed
HLD
HTN
MR
Renal nephrosis
Vertigo Edema
Lung Nodule (2021, stable)
Anemia
Hyponatremia
LE cellulitis (05/14/23)
Echo 05/18/2023: EF 69%, stage II diastolic dysfunction. Moderately dilated right atrium. Mild to moderate MR. Mild TR. PAP 36 mmHg. Small pericardial effusion.
Plan:
-Presented 09/26/2023 with shortness of breath, edema. In acute heart failure w/ recurrent L pleural effusion.
-Diuresing with IV lasix 40mg daily. Weight up 2lbs overnight if accurate, however still down 6lbs this admission. Down to 134 lbs 09/28. Creat stable at 0.9.
-She still reports some SOB and edema. Does not feel she is yet back to her baseline. Will give an additional dose of IV lasix this afternoon and assess response.
-If she is feeling improved, may be able to be discharged this afternoon versus in AM.
-s/p thoracentesis 09/26 with 1.5L removed.
-Known paroxysmal atrial fibrillation w/ recent pulsed field ablation. Paroxysms of atrial fibrillation is common for the first 2 to 3 months following ablation. Continue Tikosyn and Eliquis
-K improved to 4.5.
-Will arrange follow up.
HPI:
Patient is an 78-year-old female with past medical history of persistent atrial fibrillation and flutter status post prior PVI ablation 2017 with repeat pulsed field ablation 08/24/2023 currently on antiarrhythmic drug therapy with Tikosyn, chronic
anticoagulation on Eliquis, recovered Takotsubo cardiomyopathy, chronic heart failure with preserved ejection fraction, recurrent left pleural effusion, hypertension, hyperlipidemia and chronic anemia who presents to emergency department 09/25/2022
with complaints of worsening shortness of breath. Patient underwent pulsed field ablation on 08/24/2023 and was initiated on ADD with Tikosyn. She was discharged home in sinus rhythm. She recently was on vacation in [place] with her family and
noted worsening shortness of breath with abdominal bloating and lower extremity edema. Her outpatient dose of Lasix was increased to 40 mg twice a day without improvement of symptoms prompting her to come to the emergency department. proBNP was
found to be 2190. Chest x-ray showed moderate left pleural effusion. EKG showed atrial fibrillation. Troponin was negative. She was provided 40 mg IV Lasix in emergency department.
Patient reports she notes some improvement of shortness of breath particularly with laying down however she still gets winded with minimal activity. Feels less bloated but not resolved completely. She denies chest pain, shortness of breath at rest
or palpitations currently.
Progress Note - Prestidigitator
Subjective
Date of Service: September 29, 2023
Feels somewhat improved, however not yet to baseline. Still some SOB and LE edema.
Objective
Labs:
09/29/23 07:35
Labs
Hgb 9.7 g/dL (12.0-16.0) L 09/29/23 07:35
Hct 28.5 % (37.0-47.0) L 09/29/23 07:35
Plt Count 396 10^3/uL (130-400) 09/29/23 07:35
PT 11.9 Sec (11.4-14.6) 09/26/23 20:43
INR 0.90 09/26/23 20:43
Sodium 132 mmol/L (135-145) L 09/28/23 07:48
Potassium 3.9 mmol/L (3.5-5.1) 09/28/23 07:48
BUN 23 mg/dl (7-17) H 09/28/23 07:48
Creatinine 0.9 mg/dL (0.6-1.0) 09/28/23 07:48
Glucose 118 mg/dl (70-99) H 09/28/23 07:48
Troponins
09/26/23 09/26/23
18:02 20:43
Troponin I 0.020 0.020
Vital Signs and I&O:
Vital Signs
Temp Pulse Resp BP Pulse Ox
98.2 F 88 19 141/68 97
09/29/23 07:55 09/29/23 07:55 09/29/23 07:55 09/29/23 07:55 09/29/23 07:55
Vital Signs
Temp Pulse Resp BP Pulse Ox
98.2 F 88 19 141/68 97
09/29/23 07:55 09/29/23 07:55 09/29/23 07:55 09/29/23 07:55 09/29/23 07:55
Intake & Output
09/27/23 09/28/23 09/29/23 09/30/23
06:59 06:59 06:59 06:59
Intake Total 240 / 240 900 / 900 840 / 840
Output Total 900 / 900 1200 / 1200 1900 / 1900
Balance -660 / -660 -300 / -300 -1060 / -1060
Physical Exam
Physical Exam
GEN: No distress, awake, awake, alert, oriented x3
HEENT: supple, anicteric, mmm
LUNGS:CTA b/l, no wheezes/rales
CV: Reg, S1/S2, no murmur
EXT: No clubbing or cyanosis. Trace edema b/l LE
NEURO: Gross non-focal
SKIN: No rash, warm, dry, pink
--- NOTE | 2023-09-29 09:16 | W.PN.PUL3 ---
Today's Communication / Plan
-
Doing well today, remains stable on RA
Continue diuresis per team
We reviewed outpatient pulmonary FU again today
Discharge planning per team
We will sign off at this time, please call with questions
Assessment
-
Patient is an 78-year-old female with previous history of chronic heart failure with preserved ejection fraction, persistent AF, carotid disease, hyperlipidemia, hypertension presenting to ER for evaluation of shortness of breath. She is
recently returned home from a family vacation from [place], she has associated chest discomfort with exertion. Chest x-ray obtained demonstrating bilateral pleural effusions, she is notably 100% on room air.
She has undergone thoracentesis in past, never sent for evaluation studies. We are consulted for eval 09/27/23.
Acute on chronic pleural effusion
Acute onset SOB
Acute DHF exac with pEF
Hyponatremia, mild
Conditions present DEPUTY BAILIFF
Bilateral pleural effusions s/p L thoracentesis, 750 cc of clear yellow pleural fluid 05/18/23
Never sent for fluid studies, presumed transudate
Celiac Disease 1975
Takotsobu cardiomyopathy-recovered EF
s/p CARDIOGENIC SHOCK 04/08/05 EF 20% IMPROVED TO 50 % 04/09/[address]
Former smoker >20 pack years, quit 30 years ago
Hiatal hernia
Lyme disease
Carotid Disease
Hypertension
PANCREATITIS 2005
Irritable bowel disease
CHF
SVT/Paroxysmal atrial fibrillation s/p Cardioversion 06/18/2016
Endometrial polyps s/p D & C, polypectomy
HYPERLIPIDEMIA - MIXED
Fracture right foot/ankle in Feb 2018
Lymphocytic Colitis
Ambulatory dysfunction/Balance issues
Inguinal herniographies xs 2 02/25/2011
Vein removal in [place]. inner foot 2020
Bilateral cataract surgeries 2020
History of pancreatitis 2005
Plan
No oxygen was needed on admission, currently saturating >95% on RA
Has not needed to use at home
Prior history of lung disease is noted including emphysema, mild on CT
Former smoker
No prior PFTs for review, but suspect some COPD
Suspect patient has pleural effusion from refractory CHF exacerbation
She has been maintained on 80mg lasix and metolazone without improvement
Prior thora done without studies
CXR/CT obtained indicating recurrent large L sided effusion
IR consult for tap, reviewed pleural studies suggesting transudate
Other imaging reviewed
We discussed further medical management per team
She acknowledges she could do a better job at voiding when needing to
Known to cards
Prior ECHO results are reviewed indicating stage II DD
proBNP >2000
Resumed on diuresis
Will need outpatient pulmonary evaluation in our office for PFTs and 6MWT
Possible COPD, former smoker
Can arrange as needed outpatient thoras as well
We have briefly discussed use of pleurx if needed
Reviewed with patient
Discharge planning per team
Outpatient pulmonary FU recommended
Diagnostic Data
Chest X-Ray: 09/26/23- Large left pleural effusion. Small right pleural effusion.
05/18/23- Interval decrease in size of left pleural effusion following thoracentesis. No evidence for pneumothorax.
CT Scan: CAP 05/19/23- CHEST: 1. Small bilateral pleural effusions. 2. Mild centrilobular emphysema. 3. Mildly enlarged precarinal and subcarinal lymph nodes in the mediastinum, nonspecific. 4. Mild cardiac enlargement.
5. Severe coronary artery calcifications.
ABDOMEN/PELVIS: 1. Moderate to large colonic stool burden, which can be seen with constipation. 2. Punctate bilateral nephrolithiasis and chronic bilateral renal cortical thinning/scarring. 3. Severe aortobiiliac calcified atherosclerosis.
AVTAR 07/19/23- Normal left ventricular systolic function. Left ventricular ejection fraction is 55-60%. Mild mitral regurgitation. Mild tricuspid regurgitation. No intracardiac mass or thrombus formation seen. No significant change since the prior
study of May 2023.
TTE: 3/13/24- Mild concentric left ventricular hypertrophy. Normal left ventricular chamber size. Normal left ventricular systolic function. Left ventricular ejection fraction is 69% by volumetric assessment. Stage II diastolic dysfunction
suggestive of abnormal relaxation and increased filling pressures. Normal right ventricular size and function. Indexed LA volume is severely abnormal (> 48 mL/m2). Moderately dilated right atrium. Mild to moderate mitral regurgitation. Mild
tricuspid regurgitation. Estimated pulmonary artery pressure of 36 mmHg, assuming a right atrial pressure of 3 mmHg. Trivial to small pericardial effusion. Pleural effusion present. Compared to the previous echo 10/25/22, there is no significant
change. Consider repeat imaging with global longitudinal strain to better assess LVH and myocardial pathology.
PFT's:
Reports and relevant images were personally reviewed.
Total time spent on this consultation __36__ includes review of history, physical exam, medications, laboratory data, personal review of imaging, extensive review of outpatient records, discussion with care team and respiratory therapy.
Subjective Data
-
Date of Service:
Date of Service: September 29, 2023
Chief Complaint: Pulmonary Follow Up
Subjective:
no new events, remains stable on RA
chest discomfort post thora improving
Objective Data
Data Reviewed
Vital Signs / I&O / Oxygen:
Vital Signs
Temp Pulse Resp BP Pulse Ox
98.2 F 88 19 141/68 97
09/29/23 07:55 09/29/23 07:55 09/29/23 07:55 09/29/23 07:55 09/29/23 07:55
Intake and Output
09/28/23 09/29/23 09/30/23
06:59 06:59 06:59
Intake Total 900 / 900 840 / 840
Output Total 1200 / 1200 1900 / 1900
Balance -300 / -300 -1060 / -1060
SaO2 97
Physical Exam
General: Comfortable and Other (NAD)
HEENT: Normocephalic, Anicteric and Moist Mucous Membranes
Cardiovascular: S1-S2 and Regular Rhythm
Respiratory: Crackles and Non-Labored Respirations
GI: Soft, Non Distended and Non Tender
Neurology: Awake, Alert, Oriented, AO x 3 and No Motor Deficits
Skin: Warm, Dry and Good Color
Labs/Micro/Reports
Lab Data
09/29/23 07:35
Microbiology
09/27/23 14:31 Pleural Fluid Fungal Smear - Final
No yeast or fungal elements seen.
09/27/23 14:31 Pleural Fluid Fungal Culture - Preliminary
Culture in progress.
Positive cultures are reported as soon as detected.
Final report to follow in four to five weeks.
09/27/23 14:31 Pleural Fluid Body Fluid Culture - Preliminary
No Growth After 18-24 Hours
09/27/23 14:31 Pleural Fluid Gram Stain - Preliminary
[2023-09-29] MEDS: APRESOLINE 25 MG PO ×2 (09:17→19:32)
[2023-09-29] MEDS: VITAMIN B-12 1000 MCG PO (09:17)
[2023-09-29] MEDS: B COMPLEX w/VITAMIN C 1 CAPLET PO (09:17)
[2023-09-29] MEDS: LASIX 40 MG IV ×2 (09:17→16:41)
[2023-09-29] MEDS: VITAMIN C 1000 MG PO (09:17)
[2023-09-29] MEDS: ZETIA 10 MG PO (09:17)
[2023-09-29] MEDS: ELIQUIS 2.5 MG PO ×2 (09:17→19:32)
[2023-09-29] MEDS: VITAMIN D3 (cholecalciferol) 125 MCG PO (09:17)
[2023-09-29] MEDS: KCL 20 MEQ PO (09:17)
[2023-09-29] MEDS: TIKOSYN 125 MCG PO ×2 (09:18→19:31)
[2023-09-29 09:48] LABS: ALT (SGPT) 14 U/L (0-35); AST (SGOT) 27 U/L (14-36); Albumin 2.2 g/dl (3.5-5.0); Alkaline Phosphatase 73 U/L (38-126); Blood Urea Nitrogen 23 mg/dl (7-17); Calcium 8.4 mg/dl (8.4-10.2); Carbon Dioxide 25 mmol/L (22-30); Chloride 100 mmol/L (98-107); Estimated Creatinine Clearance 47 ml/min; Glucose 94 mg/dl (70-99); Potassium 4.5 mmol/L (3.5-5.1); Sodium 128 mmol/L (135-145); Total Bilirubin 0.2 mg/dl (0.2-1.3); Total Protein 5.2 g/dl (6.3-8.2); eGFR > 60.00
[2023-09-29] MEDS: TYLENOL 650 MG PO ×3 (12:33→21:12)
--- NOTE | 2023-09-29 12:58 | W.PN.HOSP.TC ---
Addendum entered and electronically signed by Artemio Chavez MD 09/29/23 13:29:
#Hyponatremia
suspect 2/2 volume overload
intensify Lasix
Serial BNP
Check Urine osm
Original Note:
Today's Communication/Plan
-
Increased LAsix to BID
US LE
Assessment / Plan
Assessment / Plan
78yo F with PMHx of Afib, anemia, HTN, HLD, hyponatremia, Takotsubo CM came with worsening SOB 2/2 recurrent pleural effusion. It was initially drained in May 2023 and thought to be 2/2 CHF. Patient had also Hx of ablation 1 month ago for afib.
Managed for CHF exacerbation
A/P:
#Dyspnea with minimal exertion 2/2 Recurrent pleural effusion L>R 2/2 acute on chronic HFpEF exacerbation
#Persistaent Afib
IRAD did thoracentesis on 09/27/23 - transudative fluid by lights criteria, path pending
Cardio consult: cont diuresis, daily weight, low sodium diet, I&O
Telemetry
Cont Tikosyn
#Chronic anemia
Previously recommended outpatient hematology follow up
stable
check B12, folate
#Essential HTN
#HLD
#Celiac disease
cont home meds
DVT ppx Eliquis
FUll code
I have spent at least 38 min reviewing chart, test results, communication with consultants and direct patient care
Anticipated Discharge: 24 - 48 hours
Subjective/Interval History
-
Date of Service: September 29, 2023
Objective Data
-
Labs:
Laboratory Results
09/29/23
07:35
WBC 7.6
Hgb 9.7 L
Hct 28.5 L
Plt Count 396
Sodium 128 L
Potassium 4.5
Chloride 100
Carbon Dioxide 25
BUN 23 H
Creatinine 0.9
Glucose 94
Calcium 8.4
Total Bilirubin 0.2
AST 27
ALT 14
Alkaline Phosphatase 73
Vital Signs:
Vital Signs
Temp Pulse Resp BP Pulse Ox
97.5 F 63 18 123/55 99
09/29/23 11:02 09/29/23 11:02 09/29/23 11:02 09/29/23 11:02 09/29/23 11:02
I&O
09/28/23 09/29/23 09/30/23
06:59 06:59 06:59
Intake Total 900 / 900 840 / 840
Output Total 1200 / 1200 1900 / 1900
Balance -300 / -300 -1060 / -1060
Review of Systems
-
History Source: Patient
All other systems: Reviewed and negative
Physical Exam
-
General: Well Developed and Well Nourished
HEENT: Normocephalic
Respiratory: Clear to Auscultation
Cardiac: Regular Rhythm
GI: Soft and Nontender
Musculoskeletal: No Clubbing, No Cyanosis and No Edema
Skin: Warm
Neuro: Awake, Alert, Oriented and AO x 3
Psych: Calm
--- NOTE | 2023-09-29 13:13 | CM ---
Chart reviewed and plan is to home with outpatient PT.
Plan; Home with Outpatient PT.
[2023-09-29 14:06] LABS: Osmolality Urine 256 mOsm/kg (300-900)
[2023-09-29] MEDS: ASPIR LOW (ENTERIC COATED) 81 MG PO (21:12)
[2023-09-29] MEDS: TOPROL XL 12.5 MG PO (21:12)
[2023-09-29 21:17] LABS: Blood Urea Nitrogen 27 mg/dl (7-17); Calcium 8.1 mg/dl (8.4-10.2); Carbon Dioxide 30 mmol/L (22-30); Chloride 98 mmol/L (98-107); Estimated Creatinine Clearance 42 ml/min; Glucose 129 mg/dl (70-99); Potassium 4.2 mmol/L (3.5-5.1); Sodium 128 mmol/L (135-145); eGFR 56.95
[2023-09-30 03:15] VITALS: BP 127/56
[2023-09-30 06:00] VITALS: BMI 21.3
[2023-09-30 07:30] VITALS: BP 107/68
[2023-09-30] MEDS: APRESOLINE PO (08:39)
[2023-09-30] MEDS: ELIQUIS 2.5 MG PO (08:39)
[2023-09-30] MEDS: B COMPLEX w/VITAMIN C 1 CAPLET PO (08:39)
[2023-09-30] MEDS: KCL 20 MEQ PO (08:40)
[2023-09-30] MEDS: TIKOSYN 125 MCG PO (08:40)
[2023-09-30] MEDS: ZETIA 10 MG PO (08:40)
[2023-09-30] MEDS: LASIX 40 MG IV (08:40)
[2023-09-30] MEDS: JARDIANCE 10 MG PO (08:40)
[2023-09-30] MEDS: VITAMIN C 1000 MG PO (08:40)
[2023-09-30] MEDS: VITAMIN D3 (cholecalciferol) 125 MCG PO (08:40)
[2023-09-30] MEDS: VITAMIN B-12 1000 MCG PO (08:41)
[2023-09-30] MEDS: LIPITOR 10 MG PO (08:42)
--- NOTE | 2023-09-30 08:57 | W.PN.CARDCBS ---
Addendum entered and electronically signed by Hunter Wood DO 09/30/23 11:28:
I saw and examined the patient.
The Cook Frozen Dessert's note was reviewed and I agree with the note.
Comment:
Patient seen and examined. No acute events overnight. Patient reporting overall significant improvement in breathing. Patient notes resolution of lower extremity swelling as well. Denies any chest pain, shortness of breath, palpitations,
lightheadedness, dizziness, or weakness. -2 L over last 24 hours, AF on monitor.
GEN: No distress, awake, awake, alert, oriented x3
HEENT: supple, anicteric, mmm
LUNGS:CTA b/l, no wheezes/rales
CV: Reg, S1/S2, no murmur
EXT: No clubbing, cyanosis, or edema.
NEURO: Gross non-focal
SKIN: No rash, warm, dry, pink
A/P as below
Lasix p.o. 40 twice daily
Follow-up lab work next week and follow-up in office
Heart failure education and diet
Stable for DC from CV standpoint
Original Note:
Today's Communication / Plan
-
Transition to PO lasix 40mg BID
OK for discharge
BMP in 1 week.
Follow up arranged.
Impression / Plan
-
PCP: Kodak Rubio MD
Upholstery Handler: Kiera Diaz MD
Siphoner: Justin Diaz
IMPRESSION:
Presented 09/26/2023 with shortness of breath, edema
Acute on chronic HFpEF
Hypoalbuminemia
Persistent atrial fibrillation
Prior PVI (2016)
s/p PFA, 08/24/23
Maintained on Tikosyn
Chronic anticoagulation on Eliquis
Takotsubo CM w/recovered EF (2005)
Recurrent left-sided pleural effusion
s/p thoracentesis 05/18/2023 w/ 750 cc removed
s/p thoracentesis 09/27/2023 w/ 1500 cc removed
HLD
HTN
MR
Renal nephrosis
Vertigo Edema
Lung Nodule (2021, stable)
Anemia
Hyponatremia
LE cellulitis (05/14/23)
Echo 05/18/2023: EF 69%, stage II diastolic dysfunction. Moderately dilated right atrium. Mild to moderate MR. Mild TR. PAP 36 mmHg. Small pericardial effusion.
Plan:
-Presented with shortness of breath, edema. In acute heart failure w/ recurrent L pleural effusion.
-Diuresed with IV lasix, dose increased 09/28 due to lack of response to only once daily dosing.
-Breathing and edema improved. Weight down to 132 lbs, down 8lbs this admission.
-Creat stable at 1.0. Would discharge on lasix 40mg BID.
-Jardiance 10mg daily started this admission.
-Check BMP in 1 week.
-Known paroxysmal atrial fibrillation w/ recent pulsed field ablation. Paroxysms of atrial fibrillation is common for the first 2 to 3 months following ablation. Continue Tikosyn and Eliquis.
-Follow up has been arranged for next week.
HPI:
Patient is an 78-year-old female with past medical history of persistent atrial fibrillation and flutter status post prior PVI ablation 2017 with repeat pulsed field ablation 08/24/2023 currently on antiarrhythmic drug therapy with Tikosyn, chronic
anticoagulation on Eliquis, recovered Takotsubo cardiomyopathy, chronic heart failure with preserved ejection fraction, recurrent left pleural effusion, hypertension, hyperlipidemia and chronic anemia who presents to emergency department 09/25/2022
with complaints of worsening shortness of breath. Patient underwent pulsed field ablation on 08/24/2023 and was initiated on ADD with Tikosyn. She was discharged home in sinus rhythm. She recently was on vacation in [place] with her family and
noted worsening shortness of breath with abdominal bloating and lower extremity edema. Her outpatient dose of Lasix was increased to 40 mg twice a day without improvement of symptoms prompting her to come to the emergency department. proBNP was
found to be 2190. Chest x-ray showed moderate left pleural effusion. EKG showed atrial fibrillation. Troponin was negative. She was provided 40 mg IV Lasix in emergency department.
Patient reports she notes some improvement of shortness of breath particularly with laying down however she still gets winded with minimal activity. Feels less bloated but not resolved completely. She denies chest pain, shortness of breath at rest
or palpitations currently.
Progress Note - Upholstery Handler
Subjective
Date of Service: September 30, 2023
Breathing and edema improved with BID lasix yesterday.
Objective
Labs:
09/29/23 07:35
Labs
Hgb 9.7 g/dL (12.0-16.0) L 09/29/23 07:35
Hct 28.5 % (37.0-47.0) L 09/29/23 07:35
Plt Count 396 10^3/uL (130-400) 09/29/23 07:35
PT 11.9 Sec (11.4-14.6) 09/26/23 20:43
INR 0.90 09/26/23 20:43
Sodium Cancelled 09/30/23 14:00
Potassium Cancelled 09/30/23 14:00
BUN Cancelled 09/30/23 14:00
Creatinine Cancelled 09/30/23 14:00
Glucose Cancelled 09/30/23 14:00
Vital Signs and I&O:
Vital Signs
Temp Pulse Resp BP Pulse Ox
98.1 F 83 18 107/68 97
09/30/23 07:30 09/30/23 07:30 09/30/23 07:30 09/30/23 08:39 09/30/23 07:30
Vital Signs
Temp Pulse Resp BP Pulse Ox
98.1 F 83 18 107/68 97
09/30/23 07:30 09/30/23 07:30 09/30/23 07:30 09/30/23 08:39 09/30/23 07:30
Intake & Output
09/28/23 09/29/23 09/30/23 10/01/23
06:59 06:59 06:59 06:59
Intake Total 900 / 900 840 / 840 660 / 660
Output Total 1200 / 1200 1900 / 1900 2850 / 2850
Balance -300 / -300 -1060 / -1060 -2190 / -2190
Physical Exam
Physical Exam
GEN: No distress, awake, awake, alert, oriented x3
HEENT: supple, anicteric, mmm
LUNGS:CTA b/l, no wheezes/rales
CV: Reg, S1/S2, no murmur
EXT: No clubbing, cyanosis, or edema.
NEURO: Gross non-focal
SKIN: No rash, warm, dry, pink
[2023-09-30 09:23] LABS: Blood Urea Nitrogen 27 mg/dl (7-17); Calcium 8.4 mg/dl (8.4-10.2); Carbon Dioxide 28 mmol/L (22-30); Chloride 99 mmol/L (98-107); Estimated Creatinine Clearance 42 ml/min; Glucose 152 mg/dl (70-99); Potassium 3.8 mmol/L (3.5-5.1); Sodium 130 mmol/L (135-145); eGFR 56.95
--- NOTE | 2023-09-30 10:03 | W.PN.HOSP.TC ---
Today's Communication/Plan
-
D/C
Assessment / Plan
Assessment / Plan
78yo F with PMHx of Afib, anemia, HTN, HLD, hyponatremia, Takotsubo CM came with worsening SOB 2/2 recurrent pleural effusion. It was initially drained in May 2023 and thought to be 2/2 CHF. Patient had also Hx of ablation 1 month ago for afib.
Managed for CHF exacerbation, improved on increased LAsix. Cardiology will follow in the office and agreeable with d/c
A/P:
#Dyspnea with minimal exertion 2/2 Recurrent pleural effusion L>R 2/2 acute on chronic HFpEF exacerbation
#Persistent Afib
IRAD did thoracentesis on 09/27/23 - transudative fluid by lights criteria, path pending
Cardio consult: cont diuresis, daily weight, low sodium diet, I&O
Telemetry
Cont Tikosyn
#Chronic anemia
Previously recommended outpatient hematology follow up
stable
check B12, folate
#Essential HTN
#HLD
#Celiac disease
cont home meds
DVT ppx Eliquis
FUll code
I have spent at least 38 min reviewing chart, test results, communication with consultants and direct patient care
Anticipated Discharge: Today
Subjective/Interval History
-
Date of Service: September 30, 2023
Objective Data
-
Labs:
Laboratory Results
09/30/23 09/30/23 09/30/23
02:00 08:49 14:00
Sodium Cancelled 130 L Cancelled
Potassium Cancelled 3.8 Cancelled
Chloride Cancelled 99 Cancelled
Carbon Dioxide Cancelled 28 Cancelled
BUN Cancelled 27 H Cancelled
Creatinine Cancelled 1.0 Cancelled
Glucose Cancelled 152 H Cancelled
Calcium Cancelled 8.4 Cancelled
09/30/23
21:00
Sodium Pending
Potassium Pending
Chloride Pending
Carbon Dioxide Pending
BUN Pending
Creatinine Pending
Glucose Pending
Calcium Pending
Vital Signs:
Vital Signs
Temp Pulse Resp BP Pulse Ox
98.1 F 83 18 107/68 97
09/30/23 07:30 09/30/23 07:30 09/30/23 07:30 09/30/23 08:39 09/30/23 07:30
I&O
09/29/23 09/30/23 10/01/23
06:59 06:59 06:59
Intake Total 840 / 840 660 / 660
Output Total 1900 / 1900 2850 / 2850
Balance -1060 / -1060 -2190 / -2190
Review of Systems
-
History Source: Patient
All other systems: Reviewed and negative
Physical Exam
-
General: No Apparent Distress
HEENT: Normocephalic and Atraumatic
Respiratory: Clear to Auscultation
Cardiac: Irregular Rhythm
GI: Soft, Nontender and Nondistended
Genito-urinary: No Costovertebral Tender
Musculoskeletal: No Clubbing, No Cyanosis and No Edema
Skin: Warm
Neuro: Awake, Alert, Oriented and AO x 3
Psych: Calm
--- NOTE | 2023-09-30 10:11 | W.DCSUMMARY ---
Discharge Summary
Discharge Data
Date of Admission: 09/26/23
Date of Discharge: 09/30/23
-
Pending Results: No
Hospital Course
78yo F with PMHx of Afib, anemia, HTN, HLD, hyponatremia, Takotsubo CM came with worsening SOB 2/2 recurrent pleural effusion. It was initially drained in May 2023 and thought to be 2/2 CHF. repeated thoracentesis on 09/27/23 showed transudate with
negative pathology for malignant cells. Patient had also Hx of ablation 1 month ago for afib. Managed for CHF exacerbation, improved on increased LAsix. Cardiology will follow in the office and agreeable with d/c. Medically stable for d/c home. BMP
to be repeated with PCP in 1 week
Patient verbalized understanding of the instructions.
I have spent at least 36min preparing patient discharge, reviewing chart, test results, communication with consultants and direct patient care
Patient was managed for:
#Dyspnea with minimal exertion 2/2 Recurrent pleural effusion L>R 2/2 acute on chronic HFpEF exacerbation
#Persistent Afib
#Chronic anemia
#Essential HTN
#HLD
#Celiac disease
#hyponatremia 2/2 fluid overload - resolved with lasix
Discharge Plan
-
Patient Disposition: Home (Routine Discharge)
Diet: Low Sodium and Restrict fluids to 48 oz
Activity: As tolerated
Driving Restrictions: As prior to admission
Referrals:
Celia Alfred DO [Active] - in two to three weeks (PFTs)
Robb Rubio MD [Family Provider] - in less than 1 week (repeat BMP)
Justin Diaz MD [Active] - 10/05/23 3:00 pm (You have a follow up appointment with Dr. Ulloa at the [place] office. Please call with questions.)
Prescriptions:
New
Jardiance 10 mg Tablet
10 mg PO DAILY Qty: 30 0RF
furosemide 40 mg Tablet
40 mg PO BID AT 0800,1600 Qty: 60 0RF
Continued
ascorbic acid (vitamin C) [Vitamin C] 1,000 MG tablet
1,000 mg PO DAILY
Ca-D3-mag wk-ilzp-klp-moy-bor [Calcium 600-D3 Plus (mag-zinc)] 1 EACH tablet
1 tab PO DAILY
hydralazine 25 mg Tablet
25 mg PO BID
aspirin 81 mg Tablet,Delayed Release (Dr/Ec)
81 mg PO HS
vitamin B complex Tablet
1 tab PO DAILY
cyanocobalamin (vitamin B-12) [Vitamin B-12] 1,000 mcg Tablet
1,000 mcg PO DAILY
potassium chloride 20 mEq Tablet,Er Particles/Crystals
20 meq PO DAILY
ezetimibe [Zetia] 10 mg Tablet
10 mg PO DAILY
cholecalciferol (vitamin D3) [Vitamin D3] 125 mcg (5,000 unit) Tablet
125 mcg PO DAILY
omega 0-waz-uuv-fish oil [Fish Oil] 1,200 (144-216) mg Capsule
1 cap PO DAILY
pitavastatin calcium [Livalo] 1 mg Tablet
1 mg PO MOWEFR
metoprolol succinate 25 MG tablet extended release 24 hr
12.5 mg PO HS
Eliquis 2.5 mg Tablet
2.5 mg PO BID
dofetilide 125 mcg capsule
125 mcg PO Q12H Qty: 180 3RF
Tart [place]
2 cap PO DAILY
Discontinued
furosemide 40 mg tablet
40 mg PO DAILY
Discharge Orders:
Discharge Patient (As Directed); Ordered 09/30/23
Ordered By: Artemio Chavez
Discharge Date and Time
Print Language: HEBREW
[2023-09-30 11:00] VITALS: BP 133/80
--- NOTE | 2023-09-30 11:37 | CM ---
Addendum entered by Araceli Rizo 09/30/23 14:41:
Coupon for Farxiga provided to patient
Addendum entered by Araceli Rizo 09/30/23 11:57:
Family to come at 3:15pm to pick patient up today.
Original Note:
project manager finance reviewed patient's chart and met with patient and patient is for discharge to home today.
Plan; Home today.
[2023-09-30 15:00] VITALS: BP 127/71
== END 2023-09-30 16:05 | disposition home or self-care (01) | DRG 291 ==
LOC: 4 WEST ACU 21:15
PROVIDERS: Clinical Nurse Specialist Family Health; Emergency Medicine; Radiology Diagnostic Radiology; ADMITTING PHYSICIAN Internal Medicine; ATTENDING PHYSICIAN Internal Medicine; EMERGENCY PHYSICIAN Student in an Organized Health Care Education/Training Program; FAMILY PHYSICIAN Internal Medicine; OTHER PHYSICIAN Internal Medicine; OTHER PHYSICIAN Internal Medicine Interventional Cardiology
PROC: 0W9B3ZZ Drainage of Left Pleural Cavity, Percutaneous Approach (ICD-10-PCS; 2023-09-27)
DX: I11.0 Hypertensive heart disease with heart failure (principal); I50.33 Acute on chronic diastolic (congestive) heart failure; I48.19 Other persistent atrial fibrillation; I48.92 Unspecified atrial flutter; E87.1 Hypo-osmolality and hyponatremia; R64 Cachexia; J90 Pleural effusion, not elsewhere classified; N04.9 Nephrotic syndrome with unspecified morphologic changes; E78.00 Pure hypercholesterolemia, unspecified; I34.0 Nonrheumatic mitral (valve) insufficiency; F32.A Depression, unspecified; I25.10 Atherosclerotic heart disease of native coronary artery without angina pectoris; K90.0 Celiac disease; I42.8 Other cardiomyopathies; E88.09 Other disorders of plasma-protein metabolism, not elsewhere classified; D63.8 Anemia in other chronic diseases classified elsewhere; R91.1 Solitary pulmonary nodule; R42 Dizziness and giddiness; Z88.1 Allergy status to other antibiotic agents; Z88.0 Allergy status to penicillin; Z87.891 Personal history of nicotine dependence; Z79.899 Other long term (current) drug therapy; I25.2 Old myocardial infarction; Z79.01 Long term (current) use of anticoagulants; Z79.82 Long term (current) use of aspirin; Z68.21 Body mass index [BMI] 21.0-21.9, adult
CPT/HCPCS: 88305; 32555; 71045; 71046; 80048; 80053; 82150; 82607; 82746; 82945; 82947; 83615; 83880; 83935; 83986; 84155; 84157; 84478; 84484; 85014; 85025; 85610; 87015; 87070; 87102; 87116; 87205; 87206; 88112; 89051; 93005; 93970; 97116; 97163; 97166; 97530; 99285

== ENCOUNTER → 2023-10-13 09:58 | Outpatient (REF) | payer MEDICARE, OTHER, SELFPAY | LOC: RAD 09:58 | PROVIDERS: ATTENDING PHYSICIAN Internal Medicine Cardiovascular Disease; FAMILY PHYSICIAN Internal Medicine | DX: R53.82 Chronic fatigue, unspecified (principal); I48.0 Paroxysmal atrial fibrillation; I42.8 Other cardiomyopathies; I10 Essential (primary) hypertension; I70.0 Atherosclerosis of aorta | CPT/HCPCS: 78803; A9538 ==

== ENCOUNTER 2023-10-20 12:00 | Inpatient (IN) | payer MEDICARE, OTHER, SELFPAY ==
[2023-10-19] VITALS (20 sets, daily range): BP systolic 89–147; BP diastolic 47–93; BMI 21.2
[2023-10-19] MEDS: VANCOCIN 200 IV (12:48)
--- NOTE | 2023-10-19 15:51 | PTCARENOTE ---
Received the patient from the dock or pier laborer in her bed. The patient is aaox3, vss, 96% on RA. V-pacing is noted on the monitor. Her left chest wall dressing is intact. Left arm immobilizer is in place. She has no complaint of pain or discomfort. I
instructed the patient on her activity restrictions and expected oob time. Her call carreon is within reach. Her son is at the bedside.
--- NOTE | 2023-10-19 15:52 | ITS.CL.PACE ---
Legal Activity Adjudicator - Pacemaker Implant
Pacemaker Implant
Procedure Report:
PACEMAKER IMPLANT REPORT
Primary Care Provider: Stella Sutherland PA-C
Primary afternoon babysitter: Dr Kiera Diaz
Date of Procedure: 10/19/23
Procedure:
Implantation of dual-chamber permanent pacemaker utilizing the left bundle branch for conduction system pacing
Indication/Diagnosis:
Non-reversible symptomatic bradycardia due to sinus node dysfunction.
After informed consent was obtained, 'time out' was called and confirmed, the patient was prepped and draped in a sterile fashion. Lidocaine with epi was used for local anesthesia. Central venous access was obtained via subclavian venipuncture. An
incision was made along the left chest and a pre-pectoral pocket was formed. Using a Seldinger technique and peel-away sheaths, the pacing leads were placed under fluoroscopic guidance.
Fluoroscopy was used to determine likely anatomic site for left bundle branch pacing. The [employer]tronic C315 sheath was used to deliver the Medtronic 3830 Selectsecure pacing lead with the helix exposed just exposed from the sheath tip during continuous
monitoring when pacemapping the septum during gentle clockwise rotation to obtain a paced QRS morphology of a W pattern in lead V1. Once the suspected optimal site was identified, lead deployment was performed with several rapid rotations as paced
QRS morphology was intermittently monitored until a paced QRS complex in lead V1 demonstrated development of an R wave (qR or rSR).
Unipolar pacing impedance dropped by approximately 200 ohms suggesting it had reached the left ventricular subendocardial.
Stable VEgm injury current is present throughout final lead position suggesting there was no perforation through the septum into the LV cavity.
Final unipolar pacing impedance is 900 Ohms
Unipolar pacing threshold is stable at 0.5 V @ 0.4 ms.
Final conduction system paced QRS complex duration is 110 ms
LVAT is 78 ms and peak V5 -> peak V1 timing is 40 ms
right atrial lead was placed at the right atrial appendage using active-fixation.
Once testing (see below) showed adequate and stable function, the leads were secured using the suture sleeves. The pocket was liberally irrigated with antibiotic solution. The leads were connected to the generator header and the leads and
generator were placed within the pocket. Fluoroscopy confirmed stable lead position. The pocket was closed in the typical fashion.
IMPLANTS:
Medtronic [id number], SN: [id number], Left Pectoral
RA: Medtronic 5076-45, SN: [id number] , RAA
RV: Medtronic 5076-52, SN: [id number] , interventricular septum for left bundle branch capture
DEVICE TESTING:
Sensing: RA 0.9 mV, RV 3.6 mV
Capture: RA 1.75 V@0.4ms, RV 0.4 V@0.4ms
Ohms: RA 456 , RV 684
FINAL PROGRAMMING
Goran Pacing: AAIR+ 60-130 ppm (she has narrow QRS complex when she does conduct )
COMPLICATIONS:
None
CONCLUSIONS:
1: Successful implant of dual chamber permanent pacemaker utilizing Left Bundle Branch conduction system capture for pacing.
RECOMMENDATIONS:
1. Post-op care (tele, CXR, IV abx)
2. In-Office wound check in 5-7 days
Copy to:
Stella Sutherland PA-C
Dr Keira Diaz
--- NOTE | 2023-10-19 15:57 | CM ---
CM following for DC planning needs.
Met w/ patient and family member at bedside.
Pt. was recently @ x2 wks. ago. Pt. confirms no changes to living situation. Pt. resides w/ grandson and his spouse in a private, 2 story home w/ 1 [address]. [facility] Pt. is indep. w/ ADLs, mobility without the use of any assisted device.
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 She has 2 vacations coming up she is hopeful she will improve to her baseline of walking 3 miles/d.
Pt. is asking about cardiac rehab, advised her to discuss w/ Bun Machine Operator.
Pt. has Rx plan and uses [facility] in [place] [phone]
Anticipated DC plan is for home, no needs.
CM to follow.
[2023-10-19] MEDS: LASIX 40 MG PO (17:15)
[2023-10-19] MEDS: APRESOLINE 25 MG PO (20:26)
[2023-10-19] MEDS: TIKOSYN 125 MCG PO (20:28)
[2023-10-19] MEDS: TYLENOL 650 MG PO (20:28)
--- NOTE | 2023-10-19 21:38 | PTCARENOTE ---
Received patient for the night with L upper extremity immobilizer in place. L chest pressure dressing CDI. Patient complains on 6 pain around L incision site, PRN Tylenol administered. V paced on the monitor. Call carreon within reach.
[2023-10-19] MEDS: TOPROL XL 12.5 MG PO (22:41)
[2023-10-19] MEDS: ASPIR LOW (ENTERIC COATED) 81 MG PO (22:41)
[2023-10-20] VITALS (13 sets, daily range): BP systolic 71–152; BP diastolic 49–69; PULSE 71–72; O2SAT 100; BMI 20.9
[2023-10-20] MEDS: TYLENOL 650 MG PO ×4 (01:30→22:21)
[2023-10-20 04:41] LABS: Hematocrit 25.6 % (37.0-47.0); Hemoglobin 8.9 g/dL (12.0-16.0); Mean Corp Hgb Conc. 34.8 g/dL (33.0-37.0); Mean Corpuscular Hgb 33.2 pg (27.0-31.0); Mean Corpuscular Volume 95.5 fL (81.0-99.0); Mean Platelet Volume 9.5 fL (7.4-10.4); Platelet Count 373 10^3/uL (130-400); Red Blood Cell Count 2.68 10^6/uL (4.20-5.40); Red Cell Dist. Width 15.4 % (11.5-14.5); White Blood Cell Count 7.5 10^3/uL (4.8-10.8)
[2023-10-20 05:51] LABS: Blood Urea Nitrogen 27 mg/dl (7-17); Calcium 7.9 mg/dl (8.4-10.2); Carbon Dioxide 27 mmol/L (22-30); Chloride 98 mmol/L (98-107); Estimated Creatinine Clearance 47 ml/min; Glucose 101 mg/dl (70-99); Magnesium 2.1 mg/dl (1.6-2.3); Potassium 3.6 mmol/L (3.5-5.1); Sodium 126 mmol/L (135-145); eGFR > 60.00
[2023-10-20] MEDS: FARXIGA 10 MG PO (07:48)
[2023-10-20] MEDS: FLUSH (NSS) 1 FLUSH IV (07:49)
[2023-10-20] MEDS: TIKOSYN 125 MCG PO ×2 (07:49→19:43)
[2023-10-20] MEDS: ZETIA 10 MG PO (07:49)
[2023-10-20] MEDS: LASIX 40 MG PO (07:49)
[2023-10-20] MEDS: KCL 20 MEQ PO (07:49)
[2023-10-20] MEDS: APRESOLINE 25 MG PO ×2 (07:49→19:45)
--- NOTE | 2023-10-20 08:53 | W.PN.CARDCBS ---
Addendum entered and electronically signed by Justin Diaz MD 10/20/23 14:07:
patient seen and evaluated by me
Well appearing, but notes she is fatigued
RRR
Reduced BS left half way up
Dressing left upper chest is clean and dry
A/P
Doing well s/p dual chamber PPM, continue dofetilide
Recurrent left pleural effusion, for thoracentesis and will consult pulm
Hyponatremia (recently chronic), will reduce Lasix from 40 mg BID to 40 mg daily and consult nephrology
Original Note:
Today's Communication / Plan
-
IR c/s for L thoracentesis
c/s Pulm for recurrent effusions x3
c/s Nephrology for hyponatremia
Hold OAC for now
Impression / Plan
-
Primary Care Provider: Stella Sutherland PA-C
Primary advertising consultant: Dr Kiera Diaz
Impression:
Symptomatic bradycardia
post DC PPM 10/19/2023 [employer]
chronic HFpEF
Hypoalbuminemia
Persistent atrial fibrillation
Prior PVI (2016)
s/p PFA, 08/24/23
Maintained on Tikosyn Chronic anticoagulation on Eliquis
Takotsubo CM w/recovered EF (2005)
Recurrent left-sided pleural effusion seen on post device CXR
s/p thoracentesis 05/18/2023 w/ 750 cc removed
s/p thoracentesis 09/27/2023 w/ 1500 cc removed
HLD
HTN
MR
Renal nephrosis
Vertigo Edema
Lung Nodule (2021, stable)
Anemia
Hyponatremia
LE cellulitis (05/14/23)
Plan:
post PPM site stable, tele appropriately Apacing
CXR no PTX but recurrent large Left pleural effusion
c/s IR for L thoracentesis, I.S. C&DB
c/s pulmonary for recurrence of effusion x 3
Holding OAC for now
continue Tikosyn and Toprol
Decrease Lasix to 40mg daily
acute on chronic hyponatremia - Na 126, will c/s Nephrology, continue to trend
dietary c/s for hypoalbuminemia, recurrent effusions
oob ambulate, Activity restrictions reviewed
inc check 1 week
continue to monitor closely
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
Subjective
Date of Service: October 20, 2023
no cp, mild inc pain, mod sob
Objective
Labs:
10/20/23 04:26
10/20/23 05:17
Labs
Hgb 8.9 g/dL (12.0-16.0) L 10/20/23 04:26
Hct 25.6 % (37.0-47.0) L 10/20/23 04:26
Plt Count 373 10^3/uL (130-400) 10/20/23 04:26
Sodium 126 mmol/L (135-145) L 10/20/23 05:17
Potassium 3.6 mmol/L (3.5-5.1) 10/20/23 05:17
BUN 27 mg/dl (7-17) H 10/20/23 05:17
Creatinine 0.9 mg/dL (0.6-1.0) 10/20/23 05:17
Glucose 101 mg/dl (70-99) H 10/20/23 05:17
Vital Signs and I&O:
Vital Signs
Temp Pulse Resp BP Pulse Ox
98.1 F 62 20 107/60 96
10/20/23 07:34 10/20/23 07:37 10/20/23 07:34 10/20/23 07:37 10/20/23 07:37
Vital Signs
Temp Pulse Resp BP Pulse Ox
98.1 F 62 20 107/60 96
10/20/23 07:34 10/20/23 07:37 10/20/23 07:34 10/20/23 07:37 10/20/23 07:37
Intake & Output
10/18/23 10/19/23 10/20/23 10/21/23
06:59 06:59 06:59 06:59
Intake Total 200 / 200 360 / 360
Output Total 1375 / 1375 400 / 400
Balance -1175 / -1175 -40 / -40
Physical Exam
Physical Exam
NAD, AOX3
S1, S2, irreg irreg
1/2 up LLL no breath sounds, RLL fine crackles, moderately labored
SNTND bsx4
L CW Aquacel dressing with small old drainage, marked, no HT pressure dressing removed
--- NOTE | 2023-10-20 08:57 | PTCARENOTE ---
Addendum entered by Denise Cameron RN 10/20/23 11:05:
Correction, her grandson, not her daughter.
Original Note:
I assisted the patient to the bathroom this am. She was unsteady on her feet and trying to grab at furniture and the wall to help steady herself. She stated that it was because she didn't sleep last night. I asked her to ring for assistance before
getting out of bed, She stated that she would.
She stated that her daughter (who she stays with) will be out of the country for a wedding and that she will be by herself for 2 weeks. She lives in a 2 story house with a spiral staircase.
--- NOTE | 2023-10-20 11:02 | PTCARENOTE ---
The patient is back from IR. Her lungs are clear BL. A left mid back bandaid is c/d/i.
--- NOTE | 2023-10-20 11:21 | W.CON.NEPH ---
Consultation
-
Date/Time Consultation Requested: 10/20/2023 1030 AM
Date/Time Consultation Performed: 10/20/2023 11:20 AM
Requesting Provider: Dr. Diaz
Performing Provider: Dr. Duran
Reason for Consultation: Hyponatremia
Medical History
-
Chief Complaint: Hyponatremia
History of Present Illness:
Patient is an 78-year-old female with a past medical history of per review of record. She has a history of hypertension is maintained on the combination of hydralazine and metoprolol. She is chronically anticoagulated with Eliquis in the setting
of her atrial fibrillation. She does have a history of congestive heart failure and is maintained chronically on Lasix therapy. The patient presented to the hospital for symptomatic bradycardia and underwent pacemaker placement on 10/19/2023. We
were consulted for serum sodium level of 126.
Past Medical History
Recurrent left pleural effusion
Symptomatic bradycardia
Persistent atrial fibrillation
History of Takotsubo cardiomyopathy with recovery of EF in 2005
History of thoracentesis for recurrent left pleural effusion
History of hyponatremia
Hypertension
Chronic edema
Lung nodule
Vertigo
Celiac disease
Lymphocytic colitis
Social History
Tobacco: Non-Smoker
Alcohol: None
Family History
Father from kidney disease
Allergies / Home Medications
Allergy/AdvReac Type Severity Reaction Status Date / Time
Antihistamines Allergy Rash Verified 09/26/23 17:42
Cephalosporins Allergy Rash Verified 09/26/23 17:42
diphenhydramine Allergy Pt denies Verified 09/26/23 17:42
hydrochlorothiazide Allergy Rash Verified 09/26/23 17:42
penicillin G Allergy Rash Verified 09/26/23 17:42
penicillin V Allergy Rash Verified 09/26/23 17:42
Penicillins Allergy Rash Verified 09/26/23 17:42
�Medication �Instructions �Recorded �Confirmed �Type
Ca 600 mg-D3 20 mcg-mag oxide 50 1 tab PO DAILY Supplement 07/20/16 10/19/23 History
in-Lm-xibfqe-manganese-boron
tablet (Calcium 600-D3 Plus
(mag-zinc))
ascorbic acid (vitamin C) 1,000 mg 1,000 mg PO DAILY Supplement 07/20/16 10/19/23 History
tablet (Vitamin C)
aspirin 81 mg tablet,delayed 81 mg PO HS blood thinner 05/17/23 10/19/23 History
release
hydralazine 25 mg tablet 25 mg PO BID bp 05/17/23 10/19/23 History
vitamin B complex 1 tab PO DAILY Supplement 05/17/23 10/19/23 History
apixaban 2.5 mg tablet (Eliquis) 2.5 mg PO BID afib 07/19/23 10/19/23 History
cholecalciferol (vitamin D3) 125 125 mcg PO DAILY Supplement 07/19/23 10/19/23 History
mcg (5,000 unit) tablet (Vitamin
D3)
cyanocobalamin (vitamin B-12) 1,000 mcg PO DAILY Supplement 07/19/23 10/19/23 History
1,000 mcg tablet (Vitamin B-12)
ezetimibe 10 mg tablet (Zetia) 10 mg PO DAILY cholesterol 07/19/23 10/19/23 History
metoprolol succinate 25 mg 12.5 mg PO HS bp 07/19/23 10/19/23 History
tablet,extended release 24 hr
omega 7-sxr-nwg-fish oil 1,200 mg 1 cap PO DAILY Supplement 07/19/23 10/19/23 History
(144 mg-216 mg) capsule (Fish Oil)
pitavastatin calcium 1 mg tablet 1 mg PO MOWEFR cholesterol 07/19/23 10/19/23 History
(Livalo)
potassium chloride 20 mEq 20 meq PO DAILY Supplement 07/19/23 10/19/23 History
tablet,extended release(part/cryst)
dofetilide 125 mcg capsule 125 mcg PO Q12H #180 caps 08/26/23 10/19/23 Rx
Tart Monroe 2 cap PO DAILY Supplement 09/26/23 10/19/23 History
furosemide 40 mg tablet 40 mg PO BID AT 0800,1600 #60 tabs 09/30/23 10/19/23 Rx
dapagliflozin propanediol 10 mg 10 mg PO DAILY 10/19/23 10/19/23 History
tablet (Farxiga)
Review of Systems
-
History Source: Patient
Constitutional: Fatigue
EENT: No Symptoms
Respiratory: Trouble Breathing
Cardiac: Other (pitting edema)
Abdomen/GI: No Symptoms
: No Symptoms
Musculoskeletal: No Symptoms
Skin: No Symptoms
Neurological: No Symptoms
Endocrine: No Symptoms
Hematologic/Lymphatic: No Symptoms
Physical Exam
Vital Signs
Vital Signs
Temp Pulse Resp BP Pulse Ox
97.7 F 66 16 152/69 97
10/20/23 11:11 10/20/23 11:11 10/20/23 11:11 10/20/23 10:37 10/20/23 11:11
Lab Results
10/20/23 04:26
10/20/23 05:17
10/20/23 04:26
10/20/23 05:17
WBC 7.5 10^3/uL (4.8-10.8) 10/20/23 04:26
RBC 2.68 10^6/uL (4.20-5.40) L 10/20/23 04:26
Hgb 8.9 g/dL (12.0-16.0) L 10/20/23 04:26
Hct 25.6 % (37.0-47.0) L 10/20/23 04:26
Plt Count 373 10^3/uL (130-400) 10/20/23 04:26
Sodium 126 mmol/L (135-145) L 10/20/23 05:17
Potassium 3.6 mmol/L (3.5-5.1) 10/20/23 05:17
Chloride 98 mmol/L (98-107) 10/20/23 05:17
Carbon Dioxide 27 mmol/L (22-30) 10/20/23 05:17
BUN 27 mg/dl (7-17) H 10/20/23 05:17
Creatinine 0.9 mg/dL (0.6-1.0) 10/20/23 05:17
eGFR > 60.00 10/20/23 05:17
Glucose 101 mg/dl (70-99) H 10/20/23 05:17
Calcium 7.9 mg/dl (8.4-10.2) L 10/20/23 05:17
Physical Exam
General: AOx3, Nontoxic , NAD
HEENT: PERRL, EOMI, Anicteric, Conjunctivae Clear, Ear/Nose Intact, Hearing Normal, Oropharynx Clear/Moist, Dentition Intact, Facial Symmetry, Neck Supple, Neck: Trachea Midline, No JVD and No Thyromegaly, no Bruits
Respiratory: Clear to auscultation bilaterally with normal lung exersion
Cardiac: S1/S2 and Regular Rate/Rhythm
Breast: Deferred by me
Abdomen: Soft, Nontender, Nondistended, Normal Bowel Sounds and No Hepatosplenomegaly
Rectal: Deferred by Provider
Genito-urinary: No Costovertebral Tenderness
Extremities: No Clubbing, No Cyanosis and No Edema
Skin: No Rash or open lesions
Neuro: Nonfocal/Grossly Intact, CN II-XII (Intact) and Strength (Musculoskeletal exam 5 out of 5 both upper and lower extremities)
Hematologic/Lymphatic: No Cervical Lymphadenopathy, No Submandibular Lymphadenopathy and No Supraclavicular Lymphadenopathy
Psych: Mood/afflect pleasant, Insight/judgement good and Appropriate
Vascular: plus 2 pedal and radial pulses
Data Reviewed
-
Radiology: Image Personally Visualized and interpreted (Chest x-ray personally reviewed: pacer, small left effusion)
Labs: Labs Reviewed by me (BMP CBC)
Old Records: Reviewed (Reviewed old EMR from date 09/30/2023 sodium 130)
Assessment/Plan
-
Impression:
Acute on chronic hyponatremia
symptomatic bradycardia S/P Pacermaker placement on 10/19/23
Recurrent left pleural effusion status postthoracentesis
History of diastolic congestive heart failure
History of atrial fibrillation
Hypertension
Plan:
Hyponatremia:
-Maintain fluid restriction
-maintain oral lasix
-We will provide 7.5 mg of Samsca for likely excess ADH induced hyponatremia
--- NOTE | 2023-10-20 11:42 | CM ---
Addendum entered by OLESYA Dee 10/20/23 15:15:
PT-OT evaluated patient. Spoke w/ OT after session. Pt. required min A with both walker and without. Plan to eval/treat on 10/20 in the AM.
Then met with patient at bedside.
Discussed DC plans. Pt. stays on the 1st floor of her home, bathroom is located on 2nd floor of the home accessible via spiral staircase. We discussed getting a commode for the home but patient declines this. She states that she has been going to
her son's home, a mere steps away to utilize his bathroom on the 1st floor. She will be home alone upon DC but states that her son will be available to check in on her. She declines SNF at this time.
We discussed possibility of VN but patient plans to go to stay with her son in [place] next Tues/, therefore VN cannot be arranged.
Will see how patient does in PT tomorrow AM. Will again review options at that time.
Currently, patient refusing SNF and VN is not an option.
Original Note:
CM following for DC planning needs.
S/W RN, who informed that patient was unsteady on her feet and required assistance w/ transfers this AM. Pt. stating that this is due to lack of sleep.
Met w/ patient at bedside for clarification on home situation. Pt. does reside w/ grandson, his spouse and their baby. They are currently in [facility] for a wedding for several wks. according to patient.
She has a son that lives on the same property. She reports that he works during the week and 'golfs' during the w/e.
She also indicates that she has another son that is supportive 'they all live within an hour away'. [employer] listed on facesheet, located in [place]. CM to clarify whether any family will help upon DC when they arrive to hospital.
TT to [facility], requested PT-OT evaluation to maximize functional mobility and ensure safety @ home.
Pt. may benefit from VN @ home or ?RW.
Pt. feels that her unsteadiness is related to a lack of sleep.
CM to follow.
[2023-10-20] MEDS: SAMSCA 7.5 MG PO (12:35)
--- NOTE | 2023-10-20 14:53 | CON.PUL ---
Consultation
Consultation Request
Date/Time Consultation Requested: 10/19
Date/Time Consultation Performed: 10/19
Reason for Consultation: Pleural effusion
Medical History
-
History of Present Illness:
6o-year-old female with recent hospital stay for pleural effusion, discharged in 09/30/2023. Prior hospital stay with salient features of chronic heart failure, preserved ejection fraction, treated for diastolic dysfunction. Underwent bilateral
thoracenteses, presumed transudate never sent for studies. She now returns with symptomatic bradycardia status post pacemaker placement 10/19/2023. Patient with increased left pleural effusion underwent left thoracentesis. We are asked to comment
on her pulmonary process.
.
PMH: Bradycardia status post pacemaker placement 10/19/2023, chronic heart failure with normal EF, atrial fibrillation status post PVI, on chronic anticoagulation, history of lymphocytic colitis/celiac disease. History of Takotsubo cardiomyopathy
2005, with recovered EF. Recurrent left-sided pleural effusion status post thoracentesis 05/17, 09/26 and again 10/19/2023. Hypertension, hyperlipidemia, vertigo, pulmonary nodule, anemia, hyponatremia, history of lower extremity cellulitis
Past Medical History
Past Medical History: None (See above)
Past Surgical History: None (See above)
Social History
Tobacco: Former Smoker ([id number], quit many years ago. Smoked for 40 years)
Alcohol: None
Drug: None
Personal: ( from myasthenia gravis)
Living: Alone
Employment: Retired
Family History
Family History: Other (Father age 74 from kidney lesion, son had heart attack age 47. Mother at age 92. Brother with renal disease on dialysis, brother with heart disease. 4 children otherwise healthy)
Allergies / Home Medications
Allergies
Allergy/AdvReac Type Severity Reaction Status Date / Time
Antihistamines Allergy Rash Verified 09/26/23 17:42
Cephalosporins Allergy Rash Verified 09/26/23 17:42
diphenhydramine Allergy Pt denies Verified 09/26/23 17:42
hydrochlorothiazide Allergy Rash Verified 09/26/23 17:42
penicillin G Allergy Rash Verified 09/26/23 17:42
penicillin V Allergy Rash Verified 09/26/23 17:42
Penicillins Allergy Rash Verified 09/26/23 17:42
Home Medications
�Medication �Instructions �Recorded �Confirmed �Last Taken �Type
Ca 600 mg-D3 20 mcg-mag oxide 50 1 tab PO DAILY Supplement 07/20/16 10/19/23 10/17/23 History
wy-Uk-qkmeka-manganese-boron
tablet (Calcium 600-D3 Plus
(mag-zinc))
ascorbic acid (vitamin C) 1,000 mg 1,000 mg PO DAILY Supplement 07/20/16 10/19/23 10/17/23 10:00 History
tablet (Vitamin C)
aspirin 81 mg tablet,delayed 81 mg PO HS blood thinner 05/17/23 10/19/23 10/18/23 23:00 History
release
hydralazine 25 mg tablet 25 mg PO BID bp 05/17/23 10/19/23 10/18/23 18:00 History
vitamin B complex 1 tab PO DAILY Supplement 05/17/23 10/19/23 10/17/23 History
apixaban 2.5 mg tablet (Eliquis) 2.5 mg PO BID afib 07/19/23 10/19/23 10/18/23 18:00 History
cholecalciferol (vitamin D3) 125 125 mcg PO DAILY Supplement 07/19/23 10/19/23 10/17/23 10:00 History
mcg (5,000 unit) tablet (Vitamin
D3)
cyanocobalamin (vitamin B-12) 1,000 mcg PO DAILY Supplement 07/19/23 10/19/23 10/17/23 History
1,000 mcg tablet (Vitamin B-12)
ezetimibe 10 mg tablet (Zetia) 10 mg PO DAILY cholesterol 07/19/23 10/19/23 10/18/23 History
metoprolol succinate 25 mg 12.5 mg PO HS bp 07/19/23 10/19/23 10/18/23 22:00 History
tablet,extended release 24 hr
omega 2-ulo-uiw-fish oil 1,200 mg 1 cap PO DAILY Supplement 07/19/23 10/19/23 10/17/23 History
(144 mg-216 mg) capsule (Fish Oil)
pitavastatin calcium 1 mg tablet 1 mg PO MOWEFR cholesterol 07/19/23 10/19/23 10/17/23 10:00 History
(Livalo)
potassium chloride 20 mEq 20 meq PO DAILY Supplement 07/19/23 10/19/23 10/18/23 History
tablet,extended release(part/cryst)
dofetilide 125 mcg capsule 125 mcg PO Q12H #180 caps 08/26/23 10/19/23 10/18/23 Rx
Tart Monroe 2 cap PO DAILY Supplement 09/26/23 10/19/23 10/17/23 History
furosemide 40 mg tablet 40 mg PO BID AT 0800,1600 #60 tabs 09/30/23 10/19/23 10/18/23 16:00 Rx
dapagliflozin propanediol 10 mg 10 mg PO DAILY 10/19/23 10/19/23 10/18/23 10:00 History
tablet (Farxiga)
Review of Systems
-
All other systems: Negative unless noted
Vitals / Labs / Diagnostic Testing
Vital Signs
Temp Pulse Resp BP Pulse Ox
97.7 F 65 16 96/54 97
10/20/23 11:11 10/20/23 13:01 10/20/23 11:11 10/20/23 11:13 10/20/23 11:13
Lab Data
10/20/23 04:26
10/20/23 05:17
Diagnostic Testing:
Physical Exam
-
HEENT: Normocephalic, Anicteric, Other (Cachectic in appearance) and Other (Left anterior chest pacemaker dressing)
Cardiovascular: S1/S2, Regular Rhythm, Murmur (2/6 systolic murmur) and Peripheral Edema (Trace)
Respiratory: Wheeze (n), Rales (Mild left base), Rhonchi (n), Non-Labored Respirations and Other (Slight decreased left base)
GI: Soft, Non Distended and Non Tender
Neurology: Awake, Alert and No Motor Deficits
Skin: Good Color
General: Comfortable
Assessment
-
Patient is an 78-year-old female with previous history of chronic heart failure with preserved ejection fraction, persistent AF, carotid disease, hyperlipidemia, hypertension, is now status post pacemaker placement for bradycardia 10/19/2023. She
was found to have an increasing left pleural effusion, underwent thoracentesis today, -1700 drained. Fluid is consistent with transudate. We are asked to comment on her pleural effusion etiology
Acute on chronic pleural effusion
s/p L thora, 750 cc 05/18/2023
s/p L thora -1500 09/27/2023
s/p L thora -145 (transudate, mononuclear) 0 10/20/2023
s/p PPM, 10/19/2023
Left pleural thickening at the base, per my review
Per CT chest 05/19/2023
Not present on imaging in 2021 per my review
s/p fall 2023
while in [facility], sedentary x 3 wks
Mild groundglass nodules right base
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
Celiac Disease 1975
Takotsobu cardiomyopathy-recovered EF
s/p CARDIOGENIC SHOCK 04/08/05 EF 20% IMPROVED TO 50 % 04/09/[address]
Former smoker >20 pack years, quit 30 years ago
Hiatal hernia
Lyme disease
Carotid Disease
Hypertension
PANCREATITIS 2005
Irritable bowel disease
CHF
SVT/Paroxysmal atrial fibrillation s/p Cardioversion 06/18/2016
Endometrial polyps s/p D & C, polypectomy
HYPERLIPIDEMIA - MIXED
Fracture right foot/ankle in Feb 2018
Lymphocytic Colitis
Ambulatory dysfunction/Balance issues
Inguinal herniographies xs 2 02/25/2011
Vein removal in [place]. inner foot 2020
Bilateral cataract surgeries 2020
History of pancreatitis 2005
Plan/recommendations
At this time, etiology of pleural effusion is unclear. She does have what appears to be pleural thickening at the right base per CT chest in May. This was not present in 2021
Unclear if this is atelectasis from her pleural effusion or potentially causing her pleural effusion
Transudative nature noted, monocytic predominant
Reviewed medications with pharmacy, no medications that I am aware of can predispose to pleural effusions
Patient had a fall with prolonged sedentary x 3 weeks while in the [facility] earlier this year
Moving forward
Continue with management from cardiac standpoint
She will need follow-up with regards to her pleural effusion, pleural thickening
For now, lets see how often this recurs. She will require follow-up in the pulmonary office
Further workup can be pursued as an outpatient (i.e. PET scan, Pleurx catheter)
Smoking history as noted, quit 30+ years ago
Mild emphysema on CT imaging noted, mild groundglass nodules at the right base noted
The above was reviewed line with the patient all questions answered
We will follow
Disposition efforts
Diagnostic Data
Chest X-Ray: 09/26/23- Large left pleural effusion. Small right pleural effusion.
05/18/23- Interval decrease in size of left pleural effusion following thoracentesis. No evidence for pneumothorax.
CT Scan: CAP 05/19/23- CHEST: 1. Small bilateral pleural effusions. 2. Mild centrilobular emphysema. 3. Mildly enlarged precarinal and subcarinal lymph nodes in the mediastinum, nonspecific. 4. Mild cardiac enlargement.
5. Severe coronary artery calcifications.. Right pleural thickening per my review (PSA)
ABDOMEN/PELVIS: 1. Moderate to large colonic stool burden, which can be seen with constipation. 2. Punctate bilateral nephrolithiasis and chronic bilateral renal cortical thinning/scarring. 3. Severe aortobiiliac calcified atherosclerosis.
AVTAR 07/19/23- Normal left ventricular systolic function. Left ventricular ejection fraction is 55-60%. Mild mitral regurgitation. Mild tricuspid regurgitation. No intracardiac mass or thrombus formation seen. No significant change since the prior
study of May 2023.
TTE: 05/18/23- Mild concentric left ventricular hypertrophy. Normal left ventricular chamber size. Normal left ventricular systolic function. Left ventricular ejection fraction is 69% by volumetric assessment. Stage II diastolic dysfunction
suggestive of abnormal relaxation and increased filling pressures. Normal right ventricular size and function. Indexed LA volume is severely abnormal (> 48 mL/m2). Moderately dilated right atrium. Mild to moderate mitral regurgitation. Mild
tricuspid regurgitation. Estimated pulmonary artery pressure of 36 mmHg, assuming a right atrial pressure of 3 mmHg. Trivial to small pericardial effusion. Pleural effusion present. Compared to the previous echo 10/25/22, there is no significant
change. Consider repeat imaging with global longitudinal strain to better assess LVH and myocardial pathology.
PFT's:
Reports and relevant images were personally reviewed.
[2023-10-20] MEDS: ASPIR LOW (ENTERIC COATED) 81 MG PO (22:21)
[2023-10-20] MEDS: TOPROL XL 12.5 MG PO (22:21)
--- NOTE | 2023-10-20 23:11 | PTCARENOTE ---
Received patient for the night in the chair. SR with PACs on the monitor. Aquacel dressing on L chest over pacemaker has scant dressing marked. No evidence of hematoma. Pt reports 2/10 pain over L chest incision site, PRN Tylenol administered. Band
aid on L back over thoracentesis site. Call carreon within reach.
[2023-10-21] VITALS (7 sets, daily range): BP systolic 103–122; BP diastolic 49–76; BMI 19.9
[2023-10-21 05:04] LABS: Hematocrit 26.7 % (37.0-47.0); Hemoglobin 9.2 g/dL (12.0-16.0); Mean Corp Hgb Conc. 34.5 g/dL (33.0-37.0); Mean Corpuscular Hgb 33.5 pg (27.0-31.0); Mean Corpuscular Volume 97.1 fL (81.0-99.0); Mean Platelet Volume 9.3 fL (7.4-10.4); Platelet Count 344 10^3/uL (130-400); Red Blood Cell Count 2.75 10^6/uL (4.20-5.40); Red Cell Dist. Width 15.6 % (11.5-14.5); White Blood Cell Count 6.2 10^3/uL (4.8-10.8)
[2023-10-21] MEDS: TYLENOL 650 MG PO ×4 (05:05→22:24)
[2023-10-21 05:30] LABS: ALT (SGPT) 13 U/L (0-35); AST (SGOT) 26 U/L (14-36); Alkaline Phosphatase 73 U/L (38-126); Blood Urea Nitrogen 29 mg/dl (7-17); Calcium 8.1 mg/dl (8.4-10.2); Carbon Dioxide 27 mmol/L (22-30); Chloride 101 mmol/L (98-107); Estimated Creatinine Clearance 40 ml/min; Glucose 95 mg/dl (70-99); Potassium 3.7 mmol/L (3.5-5.1); Sodium 129 mmol/L (135-145); Total Bilirubin 0.2 mg/dl (0.2-1.3); eGFR 56.95
[2023-10-21] MEDS: APRESOLINE 25 MG PO ×2 (08:19→20:08)
[2023-10-21] MEDS: FARXIGA 10 MG PO (08:19)
[2023-10-21] MEDS: ZETIA 10 MG PO (08:20)
[2023-10-21] MEDS: KCL 20 MEQ PO (08:20)
[2023-10-21] MEDS: TIKOSYN 125 MCG PO ×2 (08:20→20:08)
[2023-10-21] MEDS: LASIX 40 MG PO (08:20)
--- NOTE | 2023-10-21 08:24 | W.PN.PUL3 ---
Today's Communication / Plan
-
Chest x-ray with pulmonary follow-up week of 11/13
Additional workup for pleural effusion can be pursued as outpatient
Follow-up information left in chart
Assessment
-
Patient is an 78-year-old female with previous history of chronic heart failure with preserved ejection fraction, persistent AF, carotid disease, hyperlipidemia, hypertension, is now status post pacemaker placement for bradycardia 10/19/2023. She
was found to have an increasing left pleural effusion, underwent thoracentesis today, -1700 drained. Fluid is consistent with transudate. We are asked to comment on her pleural effusion etiology
Acute on chronic pleural effusion
s/p L thora, 750 cc 05/18/2023
s/p L thora -1500 09/27/2023
s/p L thora -145 (transudate, mononuclear) 0 10/20/2023
s/p PPM, 10/19/2023
Left pleural thickening at the base, per my review
Per CT chest 05/19/2023
Not present on imaging in 2021 per my review
s/p fall 2023
while in [facility], sedentary x 3 wks
Mild groundglass nodules right base
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
Celiac Disease 1975
Takotsobu cardiomyopathy-recovered EF
s/p CARDIOGENIC SHOCK 04/08/05 EF 20% IMPROVED TO 50 % 04/09/[address]
Former smoker >20 pack years, quit 30 years ago
Hiatal hernia
Lyme disease
Carotid Disease
Hypertension
PANCREATITIS 2005
Irritable bowel disease
CHF
SVT/Paroxysmal atrial fibrillation s/p Cardioversion 06/18/2016
Endometrial polyps s/p D & C, polypectomy
HYPERLIPIDEMIA - MIXED
Fracture right foot/ankle in Feb 2018
Lymphocytic Colitis
Ambulatory dysfunction/Balance issues
Inguinal herniographies xs 2 02/25/2011
Vein removal in [place]. inner foot 2020
Bilateral cataract surgeries 2020
History of pancreatitis 2005
Plan/recommendations
At this time, etiology of pleural effusion is unclear. She does have what appears to be pleural thickening at the right base per CT chest in May. This was not present in 2021
Unclear if this is atelectasis from her pleural effusion or potentially causing her pleural effusion
Transudative nature noted, monocytic predominant
Reviewed medications with pharmacy, no medications that I am aware of can predispose to pleural effusions
Patient had a fall with prolonged sedentary x 3 weeks while in the [facility] earlier this year
Moving forward
Continue with management from cardiac standpoint
She will need follow-up with regards to her pleural effusion, pleural thickening
For now, lets see how often this recurs. She will require follow-up in the pulmonary office
I asked her to follow-up week of 11/13 with a chest x-ray and visit in the pulmonary office (she will be in [place] visiting her son)
Further workup can be pursued as an outpatient (i.e. PET scan, Pleurx catheter)
Smoking history as noted, quit 30+ years ago
Mild emphysema on CT imaging noted, mild groundglass nodules at the right base noted
The above was reviewed line with the patient all questions answered
Okay for discharge from pulmonary standpoint
Disposition efforts
Diagnostic Data
Chest X-Ray: 09/26/23- Large left pleural effusion. Small right pleural effusion.
05/18/23- Interval decrease in size of left pleural effusion following thoracentesis. No evidence for pneumothorax.
CT Scan: CAP 05/19/23- CHEST: 1. Small bilateral pleural effusions. 2. Mild centrilobular emphysema. 3. Mildly enlarged precarinal and subcarinal lymph nodes in the mediastinum, nonspecific. 4. Mild cardiac enlargement.
5. Severe coronary artery calcifications.. Right pleural thickening per my review (PSA)
ABDOMEN/PELVIS: 1. Moderate to large colonic stool burden, which can be seen with constipation. 2. Punctate bilateral nephrolithiasis and chronic bilateral renal cortical thinning/scarring. 3. Severe aortobiiliac calcified atherosclerosis.
AVTAR 07/19/23- Normal left ventricular systolic function. Left ventricular ejection fraction is 55-60%. Mild mitral regurgitation. Mild tricuspid regurgitation. No intracardiac mass or thrombus formation seen. No significant change since the prior
study of May 2023.
TTE: 05/18/23- Mild concentric left ventricular hypertrophy. Normal left ventricular chamber size. Normal left ventricular systolic function. Left ventricular ejection fraction is 69% by volumetric assessment. Stage II diastolic dysfunction
suggestive of abnormal relaxation and increased filling pressures. Normal right ventricular size and function. Indexed LA volume is severely abnormal (> 48 mL/m2). Moderately dilated right atrium. Mild to moderate mitral regurgitation. Mild
tricuspid regurgitation. Estimated pulmonary artery pressure of 36 mmHg, assuming a right atrial pressure of 3 mmHg. Trivial to small pericardial effusion. Pleural effusion present. Compared to the previous echo 10/25/22, there is no significant
change. Consider repeat imaging with global longitudinal strain to better assess LVH and myocardial pathology.
PFT's:
Reports and relevant images were personally reviewed.
Subjective Data
-
Date of Service:
Date of Service: October 21, 2023
Subjective:
Patient is feeling well. She denies significant chest pain, cough, hemoptysis. She has not been up and about but denies shortness of breath. She is using her incentive spirometry. Appears to be in good spirits, currently on room air. Negative
fluid status noted
Objective Data
Data Reviewed
Vital Signs / I&O / Oxygen:
Vital Signs
Temp Pulse Resp BP Pulse Ox
97.7 F 80 18 112/74 96
10/21/23 07:25 10/21/23 08:20 10/21/23 07:25 10/21/23 08:20 10/21/23 07:25
Intake and Output
10/20/23 10/21/23 10/22/23
06:59 06:59 06:59
Intake Total 200 / 200 720 / 720
Output Total 1375 / 1375 2650 / 2650
Balance -1175 / -1175 -1929 / -1929
SaO2 96
Physical Exam
General: Comfortable, Other (Kyphoscoliosis) and Other (Left anterior chest dressing pacemaker)
HEENT: Normocephalic and Anicteric
Cardiovascular: S1-S2, Regular Rhythm, Murmur (1-2/6 sm), Rub (n) and Peripheral Edema (tr)
Respiratory: Wheeze (n), Crackles (Few left base), Rhonchi (n) and Non-Labored Respirations
GI: Soft, Non Distended and Non Tender
Neurology: Awake, Alert and No Motor Deficits (Able to sit up without assistance)
Skin: Cyanosis (n), Jaundice (n) and Rash (n)
Labs/Micro/Reports
Lab Data
10/21/23 04:53
10/21/23 04:53
--- NOTE | 2023-10-21 11:20 | W.PN.CARDCBS ---
Today's Communication / Plan
-
Continue daily diuresis
Resume oral anticoagulation when stable from pulmonary/IR standpoint post procedure
Fluid restriction, Samsca per nephrology, monitor sodium/intake/output
Impression / Plan
-
Primary Care Provider: Stella Sutherland PA-C
Primary injection maintenance technician: Dr Kiera Diaz
Impression:
Symptomatic bradycardia
--post DC PPM 10/19/2023 [employer]
acute on chronic HFpEF, improving
Hypoalbuminemia
Persistent atrial fibrillation
Prior PVI (2016)
s/p PFA, 08/24/23
Maintained on Tikosyn Chronic anticoagulation on Eliquis
Takotsubo CM w/recovered EF (2005)
Recurrent left-sided pleural effusion seen on post device CXR
s/p thoracentesis 05/18/2023 w/ 750 cc removed
s/p thoracentesis 09/27/2023 w/ 1500 cc removed
HLD
HTN
MR
Renal nephrosis
Vertigo Edema
Lung Nodule (2021, stable)
Anemia
Hyponatremia
LE cellulitis (05/14/23)
Plan:
post PPM site stable, tele appropriately Apacing; occasional ASVP
CXR no PTX but recurrent large Left pleural effusion now s/p thoracentesis with >1L removal
---c/s IR for L thoracentesis, I.S. C&DB
---c/s pulmonary for recurrence of effusion x 3
Holding OAC for now
continue Tikosyn and Toprol
Decrease Lasix to 40mg daily
acute on chronic hyponatremia - Na 126, will c/s Nephrology, improving to 129
dietary c/s for hypoalbuminemia, recurrent effusions
oob ambulate, Activity restrictions reviewed
inc check 1 week
continue to monitor closely
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
Subjective
Date of Service: October 21, 2023
Patient seen and examined this morning. No acute events overnight. Patient appears sinus rhythm, a paced V sensed, occasional a sensed V paced on telemetry. Patient reports mild tenderness at device site and also notes mild discomfort at left
chest thoracentesis site. Notes shortness of breath with mild labored breathing but improved from yesterday. Patient denies any other chest pain, lightheadedness, dizziness, near-syncope, syncope, PND, orthopnea, or weakness. She does also note
lower extremity swelling.
Objective
Labs:
10/21/23 04:53
10/21/23 04:53
Labs
Hgb 9.2 g/dL (12.0-16.0) L 10/21/23 04:53
Hct 26.7 % (37.0-47.0) L 10/21/23 04:53
Plt Count 344 10^3/uL (130-400) 10/21/23 04:53
Sodium 129 mmol/L (135-145) L 10/21/23 04:53
Potassium 3.7 mmol/L (3.5-5.1) 10/21/23 04:53
BUN 29 mg/dl (7-17) H 10/21/23 04:53
Creatinine 1.0 mg/dL (0.6-1.0) 10/21/23 04:53
Glucose 95 mg/dl (70-99) 10/21/23 04:53
Vital Signs and I&O:
Vital Signs
Temp Pulse Resp BP Pulse Ox
97.6 F 72 16 112/74 97
10/21/23 11:11 10/21/23 11:11 10/21/23 11:11 10/21/23 08:20 10/21/23 11:11
Vital Signs
Temp Pulse Resp BP Pulse Ox
97.6 F 72 16 112/74 97
10/21/23 11:11 10/21/23 11:11 10/21/23 11:11 10/21/23 08:20 10/21/23 11:11
Intake & Output
10/19/23 10/20/23 10/21/23 10/22/23
06:59 06:59 06:59 06:59
Intake Total 200 / 200 720 / 720 480 / 480
Output Total 1375 / 1375 2650 / 2650
Balance -1175 / -1175 -1930 / -1930 480 / 480
Physical Exam
Physical Exam
GENERAL: no acute distress
EYE: sclera anicteric
NECK: Supple, no JVD, no carotid bruit appreciated
ENT: normal nose, moist mucosal membranes
CARDIAC: Regular rate and rhythm, +S1/S2, no murmur, rubs, or gallops; L CIED site c/d/i mild tenderness, no swelling; trace BL LE
CHEST/PULMONARY: BL basilar crackles, some decreased expansion; no wheeze or rhonchi
ABDOMEN: Soft, without focal tenderness or distention
NEUROLOGICAL: Alert and oriented x3
SKIN: Warm and dry, no rash
PSYCH: Normal and appropriate interaction.
--- NOTE | 2023-10-21 14:30 | CM ---
CM following for DC planning needs.
CM met w/ patient at bedside. She reports that she feels much better.
Reviewed DC plans. Pt. plans to return to home upon DC. She is not agreeable to go anywhere for SNF. Reviewed whether she would agree to obtain a RW at DC and pt. declines this, stating that her home has an un-level leslie, which is not conducive
to RW. Cannot arrange VN as patient is going to [place] for several weeks next week.
At this time, plan is for pt. to DC to home without needs.
CM to remain available.
--- NOTE | 2023-10-21 17:22 | W.PN.NEPH.PH ---
Today's Communication / Plan
-
FR, cont lasix
Assessment/Plan
-
Impression:
Acute on chronic hyponatremia
symptomatic bradycardia S/P Pacermaker placement on 10/19/23
Recurrent left pleural effusion status postthoracentesis
History of diastolic congestive heart failure
History of atrial fibrillation
Hypertension
Plan:
Hyponatremia from hypervolemia: improving sodium 129
-Maintain fluid restriction
-maintain oral lasix, prn samsca
wt decreasing
labs in am
-
-
Date of Service: October 21, 2023
CC / HPI / ROS
-
Chief Complaint:
hyponatremia
History of Present Illness:
sodium better at 129 post lasix and samsca
BP stable \\wt decreasing
left thoracentesis 1.45lit
Review of Systems:
sob improving, no cp
no fever
no n/v
Labs
-
Labs:
WBC 6.2 10^3/uL (4.8-10.8) 10/21/23 04:53
RBC 2.75 10^6/uL (4.20-5.40) L 10/21/23 04:53
Hgb 9.2 g/dL (12.0-16.0) L 10/21/23 04:53
Hct 26.7 % (37.0-47.0) L 10/21/23 04:53
Plt Count 344 10^3/uL (130-400) 10/21/23 04:53
Sodium 129 mmol/L (135-145) L 10/21/23 04:53
Potassium 3.7 mmol/L (3.5-5.1) 10/21/23 04:53
Chloride 101 mmol/L (98-107) 10/21/23 04:53
Carbon Dioxide 27 mmol/L (22-30) 10/21/23 04:53
BUN 29 mg/dl (7-17) H 10/21/23 04:53
Creatinine 1.0 mg/dL (0.6-1.0) 10/21/23 04:53
eGFR 56.95 10/21/23 04:53
Glucose 95 mg/dl (70-99) 10/21/23 04:53
Calcium 8.1 mg/dl (8.4-10.2) L 10/21/23 04:53
Albumin 2.0 g/dl (3.5-5.0) L 10/21/23 04:53
Physical Exam
-
Vital Signs:
Vital Signs
Temp Pulse Resp BP Pulse Ox
97.5 F 67 16 104/49 99
10/21/23 14:59 10/21/23 16:00 10/21/23 14:59 10/21/23 15:00 10/21/23 14:59
Cardiovascular:: Regular rate and rhythm
Respiratory:: Bilateral: Rales
Lung Excursion:: Normal
Abdomen:: Nontender and Soft
Extremity Edema:: None: Bilateral: (trace)
Lee Catheter: No
--- NOTE | 2023-10-21 17:32 | PTCARENOTE ---
pt continues to be paced on the monitor, hr in the 70s, vss. pt offers no complaints at this time. pt oob and ambulating in room and tolerating well. pt educated on plan of care and pt verbalized understanding. call carreon within reach.
[2023-10-21] MEDS: ASPIR LOW (ENTERIC COATED) 81 MG PO (22:24)
[2023-10-21] MEDS: TOPROL XL 12.5 MG PO (22:24)
--- NOTE | 2023-10-22 00:37 | PTCARENOTE ---
Pt. received at change of shift. Pt. seen and assessed in room. Pt. AOx3 VS WNL. Pacer site at Left chest wall, c/d/i. No complaints at this time. Continuing to monitor pt.
[2023-10-22 03:13] VITALS: BP 111/72
[2023-10-22] MEDS: TYLENOL 650 MG PO ×2 (03:16→07:44)
[2023-10-22 03:20] VITALS: BMI 19.8
[2023-10-22 07:06] VITALS: BP 118/65
[2023-10-22] MEDS: FARXIGA 10 MG PO (08:20)
[2023-10-22] MEDS: TIKOSYN 125 MCG PO (08:20)
[2023-10-22] MEDS: APRESOLINE 25 MG PO (08:20)
[2023-10-22] MEDS: LASIX 40 MG PO (08:20)
[2023-10-22] MEDS: ZETIA 10 MG PO (08:20)
[2023-10-22] MEDS: KCL 20 MEQ PO (08:22)
--- NOTE | 2023-10-22 09:06 | W.PN.CARDCBS ---
Addendum entered and electronically signed by Orquidea Storey PA-C 10/25/23 14:35:
Dictated discharge summary #[id number]
Original Note:
Today's Communication / Plan
-
Resume Lasix 40 mg twice daily
BMP pending
Replete electrolytes as needed
BMP 1 week
Will need chest x-ray week of 11/14/2023
Stable for discharge from cardiac standpoint
Impression / Plan
-
Primary Care Provider: Stella Sutherland PA-C
Primary presidential support specialist: Dr Kiera Diaz
Impression:
Symptomatic bradycardia
--post DC PPM 10/19/2023 [employer]
acute on chronic HFpEF, improving
Hypoalbuminemia
Persistent atrial fibrillation
Prior PVI (2016)
s/p PFA, 08/24/23
Maintained on Tikosyn Chronic anticoagulation on Eliquis
Takotsubo CM w/recovered EF (2005)
Recurrent left-sided pleural effusion seen on post device CXR
s/p thoracentesis 05/18/2023 w/ 750 cc removed
s/p thoracentesis 09/27/2023 w/ 1500 cc removed
s/p thoracentesis 10/20/2023 w/ 1450 cc removed
HLD
HTN
MR
Renal nephrosis
Vertigo Edema
Lung Nodule (2021, stable)
Anemia
Hyponatremia
LE cellulitis (05/14/23)
Plan:
POD# 3 post DC medtronic PPM. PPM site stable with no evidence of hematoma, tele reviewed with intermittent pacing
inc check 1 week
Reviewed wound care and activity restrictions
Atrial fibrillation continue Tikosyn and Toprol
Anticoagulation resumed. Patient on low-dose Eliquis due to age and weight
Post PPM CXR no PTX but recurrent large Left pleural effusion now s/p thoracentesis with 1450 cc removed 10/20/2023
Improved breathing post thoracentesis
Recurrent pleural effusions seen by pulmonary. Fluid consistent with transudate. They are recommending repeat chest x-ray week of 11/14/2023. Additional workup can be pursued as outpatient. Appreciate input.
Acute on chronic hyponatremia - Na improved 129 on 10/20, repeat BMP pending
Keep K greater than 4, magnesium greater than 2; Replete if needed
Resume Lasix 40 mg BID
Will need BMP in 1 week
Appreciate nephrology input
Stable for discharge to home
Progress Note - Mathematical Scientist
Subjective
Date of Service: October 22, 2023
Patient seen and examined. Patient resting comfortably in bed. Reports breathing has improved post thoracentesis.
Objective
Labs:
10/21/23 04:53
Labs
Hgb 9.2 g/dL (12.0-16.0) L 10/21/23 04:53
Hct 26.7 % (37.0-47.0) L 10/21/23 04:53
Plt Count 344 10^3/uL (130-400) 10/21/23 04:53
Sodium 129 mmol/L (135-145) L 10/21/23 04:53
Potassium 3.7 mmol/L (3.5-5.1) 10/21/23 04:53
BUN 29 mg/dl (7-17) H 10/21/23 04:53
Creatinine 1.0 mg/dL (0.6-1.0) 10/21/23 04:53
Glucose 95 mg/dl (70-99) 10/21/23 04:53
Vital Signs and I&O:
Vital Signs
Temp Pulse Resp BP Pulse Ox
97.7 F 72 16 111/72 98
10/22/23 07:03 10/22/23 05:00 10/21/23 18:48 10/22/23 03:13 10/22/23 07:03
Vital Signs
Temp Pulse Resp BP Pulse Ox
97.7 F 72 16 111/72 98
10/22/23 07:03 10/22/23 05:00 10/21/23 18:48 10/22/23 03:13 10/22/23 07:03
Intake & Output
10/20/23 10/21/23 10/22/23 10/23/23
06:59 06:59 06:59 06:59
Intake Total 200 / 200 720 / 720 580 / 580
Output Total 1375 / 1375 2650 / 2650 1900 / 1900
Balance -1175 / -1175 -1930 / -1930 -1320 / -1320
Physical Exam
Physical Exam
GEN: No distress, awake, Ox3
HEENT: supple, anicteric, mmm
LUNGS: Mildly decreased at left base otherwise CTA, no wheezes/rales
CV: Reg, S1/S2, no murmur, rub or gallop; pacemaker incision site without hematoma, dressing clean dry intact
ABD: soft, BS+, NT/ND
EXT: No edema, clubbing or cyanosis
NEURO: Gross non-focal
SKIN: No rash, warm, dry, pink
--- NOTE | 2023-10-22 10:28 | W.PN.PUL3 ---
Today's Communication / Plan
-
Doing well from our standpoint
Reviewed remaining questions about outpatient pulmonary follow up
Discharge planning per team
Assessment
-
Patient is an 78-year-old female with previous history of chronic heart failure with preserved ejection fraction, persistent AF, carotid disease, hyperlipidemia, hypertension, is now status post pacemaker placement for bradycardia 10/19/2023. She
was found to have an increasing left pleural effusion, underwent thoracentesis today, -1700 drained. Fluid is consistent with transudate. We are asked to comment on her pleural effusion etiology
Acute on chronic pleural effusion
s/p L thora, 750 cc 05/18/2023
s/p L thora -1500 09/27/2023
s/p L thora -145 (transudate, mononuclear) 0 10/20/2023
s/p PPM, 10/19/2023
Left pleural thickening at the base, per my review
Per CT chest 05/19/2023
Not present on imaging in 2021 per my review
s/p fall 2023
while in [facility], sedentary x 3 wks
Mild groundglass nodules right base
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
Celiac Disease 1975
Takotsobu cardiomyopathy-recovered EF
s/p CARDIOGENIC SHOCK 04/08/05 EF 20% IMPROVED TO 50 % 04/09/[address]
Former smoker >20 pack years, quit 30 years ago
Hiatal hernia
Lyme disease
Carotid Disease
Hypertension
PANCREATITIS 2005
Irritable bowel disease
CHF
SVT/Paroxysmal atrial fibrillation s/p Cardioversion 06/18/2016
Endometrial polyps s/p D & C, polypectomy
HLD
Fracture right foot/ankle in Feb 2018
Lymphocytic Colitis
Ambulatory dysfunction/Balance issues
Inguinal herniographies xs 2 02/25/2011
Vein removal in [place] inner foot 2020
Bilateral cataract surgeries 2020
History of pancreatitis 2005
Plan/recommendations
Stable on RA
Comfortable appearing
At this time, etiology of pleural effusion is unclear. She does have what appears to be pleural thickening at the right base per CT chest in May. This was not present in 2021
Unclear if this is atelectasis from her pleural effusion or potentially causing her pleural effusion
Transudative nature noted, monocytic predominant
Reviewed medications with pharmacy, no medications that I am aware of can predispose to pleural effusions
Patient had a fall with prolonged sedentary x 3 weeks while in the [facility] earlier this year
Moving forward
Continue with management from cardiac standpoint
She will need follow-up with regards to her pleural effusion, pleural thickening
For now, lets see how often this recurs. She will require follow-up in the pulmonary office
I asked her to follow-up week of 11/13 with a chest x-ray and visit in the pulmonary office (she will be in [place] visiting her son)
Further workup can be pursued as an outpatient (i.e. PET scan, Pleurx catheter)
Smoking history as noted, quit 30+ years ago
Mild emphysema on CT imaging noted, mild groundglass nodules at the right base noted
The above was reviewed line with the patient all questions answered
Okay for discharge from pulmonary standpoint
Disposition efforts
Diagnostic Data
Chest X-Ray: 09/26/23- Large left pleural effusion. Small right pleural effusion.
05/18/23- Interval decrease in size of left pleural effusion following thoracentesis. No evidence for pneumothorax.
CT Scan: CAP 05/19/23- CHEST: 1. Small bilateral pleural effusions. 2. Mild centrilobular emphysema. 3. Mildly enlarged precarinal and subcarinal lymph nodes in the mediastinum, nonspecific. 4. Mild cardiac enlargement.
5. Severe coronary artery calcifications.. Right pleural thickening per my review (PSA)
ABDOMEN/PELVIS: 1. Moderate to large colonic stool burden, which can be seen with constipation. 2. Punctate bilateral nephrolithiasis and chronic bilateral renal cortical thinning/scarring. 3. Severe aortobiiliac calcified atherosclerosis.
AVTAR 07/19/23- Normal left ventricular systolic function. Left ventricular ejection fraction is 55-60%. Mild mitral regurgitation. Mild tricuspid regurgitation. No intracardiac mass or thrombus formation seen. No significant change since the prior
study of May 2023.
TTE: 05/18/23- Mild concentric left ventricular hypertrophy. Normal left ventricular chamber size. Normal left ventricular systolic function. Left ventricular ejection fraction is 69% by volumetric assessment. Stage II diastolic dysfunction
suggestive of abnormal relaxation and increased filling pressures. Normal right ventricular size and function. Indexed LA volume is severely abnormal (> 48 mL/m2). Moderately dilated right atrium. Mild to moderate mitral regurgitation. Mild
tricuspid regurgitation. Estimated pulmonary artery pressure of 36 mmHg, assuming a right atrial pressure of 3 mmHg. Trivial to small pericardial effusion. Pleural effusion present. Compared to the previous echo 10/25/22, there is no significant
change. Consider repeat imaging with global longitudinal strain to better assess LVH and myocardial pathology.
PFT's:
Reports and relevant images were personally reviewed.
Subjective Data
-
Date of Service:
Date of Service: October 22, 2023
Chief Complaint: Pulmonary Follow Up
Subjective:
Doing well, stable on RA
No new complaints, ready to go home
Objective Data
Data Reviewed
Vital Signs / I&O / Oxygen:
Vital Signs
Temp Pulse Resp BP Pulse Ox
97.7 F 64 16 118/65 95
10/22/23 07:03 10/22/23 10:00 10/21/23 18:48 10/22/23 07:06 10/22/23 07:06
Intake and Output
10/21/23 10/22/23 10/23/23
06:59 06:59 06:59
Intake Total 720 / 720 580 / 580
Output Total 2650 / 2650 1900 / 1900
Balance -1930 / -1930 -1320 / -1320
SaO2 95
Physical Exam
General: Comfortable, Other (Kyphoscoliosis) and Other (Left anterior chest dressing pacemaker)
HEENT: Normocephalic and Anicteric
Cardiovascular: S1-S2, Regular Rhythm, Murmur (1-2/6 sm), Rub (n) and Peripheral Edema (tr)
Respiratory: Clear, Wheeze (n), Rhonchi (n) and Non-Labored Respirations
GI: Soft, Non Distended and Non Tender
Neurology: Awake, Alert, Oriented, AO x 3 and No Motor Deficits (Able to sit up without assistance)
Skin: Cyanosis (n), Jaundice (n) and Rash (n)
Labs/Micro/Reports
Lab Data
10/21/23 04:53
[2023-10-22] MEDS: ELIQUIS 2.5 MG PO (11:08)
[2023-10-22 11:13] LABS: Blood Urea Nitrogen 30 mg/dl (7-17); Calcium 8.4 mg/dl (8.4-10.2); Carbon Dioxide 29 mmol/L (22-30); Chloride 97 mmol/L (98-107); Estimated Creatinine Clearance 39 ml/min; Glucose 114 mg/dl (70-99); Potassium 4.1 mmol/L (3.5-5.1); Sodium 130 mmol/L (135-145); eGFR 56.95
--- NOTE | 2023-10-22 11:38 | W.DS.TRANS ---
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
-
Discharge Instructions:
Sleep Apnea Risk Low
Discharge Diagnosis/Procedures Pacemaker implantation, Pleural effusion post
thoracentesis
Diet Low Cholesterol,Restrict fluids to 64 oz,2 Gram
Sodium
Driving Restrictions No driving for 1 week
Bathing Restrictions OK to Shower
Blood Work BMP in 1 week
Others Tests Obtain chest xray week of 11/14/2023
Instructions:
Stand-Alone Forms: DC Inst - Implanted Device
Changes to Home Medications: No
Discharge Medications:
DC Medications w/original date entered in [facility]
Ca 600 mg-D3 20 mcg-mag oxide 50 yb-Xf-tvhltq-manganese-boron tablet (Calcium 600-D3 Plus (mag-zinc)) 1 tab PO DAILY Supplement 07/20/16
ascorbic acid (vitamin C) 1,000 mg tablet (Vitamin C) 1,000 mg PO DAILY Supplement 07/20/16
aspirin 81 mg tablet,delayed release 81 mg PO HS blood thinner 05/17/23
hydralazine 25 mg tablet 25 mg PO BID bp 05/17/23
vitamin B complex 1 tab PO DAILY Supplement 05/17/23
apixaban 2.5 mg tablet (Eliquis) 2.5 mg PO BID afib 07/19/23
cholecalciferol (vitamin D3) 125 mcg (5,000 unit) tablet (Vitamin D3) 125 mcg PO DAILY Supplement 07/19/23
cyanocobalamin (vitamin B-12) 1,000 mcg tablet (Vitamin B-12) 1,000 mcg PO DAILY Supplement 07/19/23
ezetimibe 10 mg tablet (Zetia) 10 mg PO DAILY cholesterol 07/19/23
metoprolol succinate 25 mg tablet,extended release 24 hr 12.5 mg PO HS bp 07/19/23
omega 4-oaj-ban-fish oil 1,200 mg (144 mg-216 mg) capsule (Fish Oil) 1 cap PO DAILY Supplement 07/19/23
pitavastatin calcium 1 mg tablet (Livalo) 1 mg PO MOWEFR cholesterol 07/19/23
potassium chloride 20 mEq tablet,extended release(part/cryst) 20 meq PO DAILY Supplement 07/19/23
dofetilide 125 mcg capsule 125 mcg PO Q12H #180 caps 08/26/23
[place] 2 cap PO DAILY Supplement 09/26/23
furosemide 40 mg tablet 40 mg PO BID AT 0800,1600 #60 tabs 09/30/23
dapagliflozin propanediol 10 mg tablet ([facility]) 10 mg PO DAILY 10/19/23
Home Medication Changes
Pending Results: Yes
Total time spent discharging patient (in min): 31
== END 2023-10-22 14:41 | disposition home or self-care (01) | DRG 981 ==
LOC: IVU 12:00
PROVIDERS: Internal Medicine Cardiovascular Disease; Nurse Practitioner Adult Health; Physician Assistant Medical; Radiology Diagnostic Radiology; ADMITTING PHYSICIAN Internal Medicine Cardiovascular Disease; CONSULT PHYSICIAN Internal Medicine Critical Care Medicine; CONSULT PHYSICIAN Specialist; FAMILY PHYSICIAN Internal Medicine
PROC: 02HK3JZ Insertion of Pacemaker Lead into Right Ventricle, Percutaneous Approach (ICD-10-PCS; 2023-10-19)
PROC: 02H63JZ Insertion of Pacemaker Lead into Right Atrium, Percutaneous Approach (ICD-10-PCS; 2023-10-19)
PROC: 0JH606Z Insertion of Pacemaker, Dual Chamber into Chest Subcutaneous Tissue and Fascia, Open Approach (ICD-10-PCS; 2023-10-19)
PROC: 0W9B3ZZ Drainage of Left Pleural Cavity, Percutaneous Approach (ICD-10-PCS; 2023-10-20)
DX: E87.1 Hypo-osmolality and hyponatremia (principal); I50.33 Acute on chronic diastolic (congestive) heart failure; I48.19 Other persistent atrial fibrillation; N04.9 Nephrotic syndrome with unspecified morphologic changes; I42.8 Other cardiomyopathies; J91.8 Pleural effusion in other conditions classified elsewhere; I49.5 Sick sinus syndrome; I11.0 Hypertensive heart disease with heart failure; E88.09 Other disorders of plasma-protein metabolism, not elsewhere classified; D64.9 Anemia, unspecified; E78.5 Hyperlipidemia, unspecified; I70.0 Atherosclerosis of aorta; I08.0 Rheumatic disorders of both mitral and aortic valves; E87.70 Fluid overload, unspecified; K52.832 Lymphocytic colitis; Z88.1 Allergy status to other antibiotic agents; Z88.0 Allergy status to penicillin; Z87.891 Personal history of nicotine dependence; Z82.49 Family history of ischemic heart disease and other diseases of the circulatory system; Z79.899 Other long term (current) drug therapy; Z79.01 Long term (current) use of anticoagulants
CPT/HCPCS: 32555; 33208; 71045; 80048; 80053; 83735; 85027; 93005; 97116; 97162; 97166; C1769; C1785; C1892; C1898; Q9967

== ENCOUNTER → 2023-11-11 11:20 | Outpatient (REF) | payer MEDICARE, OTHER, SELFPAY ==
[2023-11-11 13:03] LABS: Blood Urea Nitrogen 27 mg/dl (7-17); Calcium 8.3 mg/dl (8.4-10.2); Carbon Dioxide 28 mmol/L (22-30); Chloride 96 mmol/L (98-107); Glucose 84 mg/dl (70-99); Potassium 3.8 mmol/L (3.5-5.1); Sodium 133 mmol/L (135-145); eGFR > 60.00
== END ==
LOC: REG 11:20
PROVIDERS: ATTENDING PHYSICIAN Internal Medicine Cardiovascular Disease; FAMILY PHYSICIAN Internal Medicine; REFERRING PHYSICIAN Internal Medicine Critical Care Medicine
DX: E87.1 Hypo-osmolality and hyponatremia (principal); J90 Pleural effusion, not elsewhere classified
CPT/HCPCS: 36415; 71046; 80048

== ENCOUNTER → 2023-11-18 11:59 | Outpatient (REF) | payer MEDICARE, OTHER, SELFPAY ==
[2023-11-18 12:45] VITALS: BP 140/92; BP_SYST 67
[2023-11-18 13:19] VITALS: BP 135/70; BP_SYST 83
[2023-11-18 13:45] VITALS: BP 130/60
== END ==
LOC: RADI 11:59
PROVIDERS: ATTENDING PHYSICIAN Internal Medicine Cardiovascular Disease; FAMILY PHYSICIAN Internal Medicine
DX: J90 Pleural effusion, not elsewhere classified (principal)
CPT/HCPCS: 32555; 71045

== ENCOUNTER 2023-11-24 18:46 | Inpatient (IN) | payer MEDICARE, OTHER, SELFPAY ==
[2023-11-24 14:32] VITALS: BP 140/80
--- NOTE | 2023-11-24 14:43 | ED.GENMED ---
History of Present Illness
General
Chief Complaint: Breathing Problem
Source: patient
Exam Limitations: none
Time Seen by Provider: 11/24/23 14:41
History of Present Illness
History of Present Illness:
See MDM
Past History
Past History
ED Past Medical History: Arrthythmia (atrial fib-no anticoags), CAD, CHF, HTN, Hypercholesterolemia, [place], Psychiatric (Depression) and Other (Back and neck pain, Migraines, Celiac disease, Anemia, Miscarrage X 3)
ED Past Surgical History: Cardiac (ablations, Cardioversion) and Other (Hernia repair bilateral, Left breast lumpectomy)
Social History
Tobacco: Former smoker
Alcohol: None
Personal:
Living: alone
Employment: Retired
Phy Exam
Physical Exam
Physical Exam:
See MDM
Scores
Heart Failure Risk
Heart Failure Risk Score: Not Applicable
Course
Orders/Labs/Results
Orders:
Orders
11/24/23 14:39
Electrocardiogram (*1) Urgent
Reason for Study: Shortness of Breath
EKG- Treatment ONCE
11/24/23 14:42
CR Chest - 2 Views Urgent
Comment:
Reason For Exam: SOB, hx recurrent pleural effusion
11/24/23 15:43
Complete Blood Count/With Diff Urgent
11/24/23 16:15
NT-proBNP Urgent
Troponin I Urgent
11/24/23 16:29
Comprehensive Metabolic Panel Urgent
11/24/23 16:52
Consult Interventional Radiology [IRAD CONSULT] Routine
Consulting Provider: Tavon Zhong
Was physician already notified: Yes
Reason for Consult/Procedure: Thoracentesis
Acknowledgement that appropriate orders are entered: Yes
Abnormal Lab Results
11/24/23 11/24/23
15:43 16:15
RBC 3.27 L 10^6/uL
(4.20-5.40)
Hgb 10.5 L g/dL
(12.0-16.0)
Hct 30.0 L %
(37.0-47.0)
MCH 32.1 H pg
(27.0-31.0)
RDW 16.2 H %
(11.5-14.5)
Plt Count 451 H 10^3/uL
(130-400)
Troponin I 0.047 H* ng/ml
11/24/23 15:43
Vital Signs
Initial and Last Documented VS:
Initial Vital Signs
Temp Pulse Resp BP Pulse Ox
97.5 F 85 18 140/80 96
11/24/23 14:32 11/24/23 14:32 11/24/23 14:32 11/24/23 14:32 11/24/23 14:32
Last Documented Vital Signs
Temp Pulse Resp BP Pulse Ox
97.5 F 61 14 121/75 95
11/24/23 14:32 11/24/23 16:45 11/24/23 16:45 11/24/23 16:12 11/24/23 16:50
MDM/Problems Addressed
Differential Diagnosis Includes:
HPI and MDM Narrative:
78-year-old female presenting for evaluation of recurrent shortness of breath. Patient becomes short of breath with minimal exertion. Patient is concerned that her pleural effusion is reoccurring. She was recently diagnosed with pleural effusions
last month and has required multiple thoracentesis. She is early in the workup to figure out why this keeps reoccurring. On arrival, patient found to be hypoxic and mildly short of breath. She was placed on 2 L nasal cannula. Will obtain chest
x-ray to evaluate the recurrent pleural effusion
Physical exam
General: Mildly uncomfortable
HEENT: protecting airway
Neck: appears supple
CV: No evidence of cyanosis
Resp: No accessory muscle use. Decreased breath sounds to bilateral bases, left worse than right
Abd: Non-distended
Extremities: No deformities
Neuro: alert
Psych: Normal affect
Skin: Intact
Problems Addressed including Acute and Chronic Conditions affecting care:
1. Recurrent pleural effusion
Acuity: acute
Prognosis: stable
Details: Will discuss case with IR
2. Hypoxia
Acuity: acute
Prognosis: stable
Details: In the setting of pleural effusion. Patient placed on 2 L nasal cannula
Updates
Chest x-ray confirms large left pleural effusion. IR made aware and they will be able to perform thoracentesis tomorrow. Given the hypoxia, will admit for oxygen pending thoracentesis. Patient states she was post to get a CT chest/abdomen/pelvis
as an outpatient immediately following the outpatient thoracentesis. This was relayed to the hospitalist
Differential Diagnosis (but not limited to): Pneumonia, pleural effusion
Testing considered: CT chest
Drug therapy (if applicable): OTC meds, please see d/c instruction regarding Rx drugs
Amount and/or Complexity of Data Reviewed
Clinical info obtained from: Patient
External data reviewed: Recurrent pleural effusions requiring thoracentesis. Pleural effusion is transudative per prior notes
Labs I independently reviewed (but not limited to): elevated trop
Radiology: X-ray independently reviewed: Chest x-ray shows large left pleural effusion
Pulse Ox: hypoxic
EKG independently reviewed: Junctional rhythm, left axis, no STEMI
Caustic Liquor Maker: Junctional rhythm
Critical Care: N/A
Risk of Complication:
Social Determinants of health: Good social support
Discussed with other providers: Hospitalist, interventional radiologist
Escalation of Care includes Admit/Obs: Given the large pleural effusion with hypoxia, will admit for interventional radiology paracentesis
Occasional wrong word or 'sound a like' substitutions may have occurred due to the inherent limitations of voice recognition software. Read the chart carefully and recognize, using context, where substitutions have occurred.
*Critical Care Note
Total Time (30-74mins, 75-104mins- exclusive of procedures): Not Applicable
ED Attending Note
-
Portions of this chart may have been created with voice recognition software.� Occasional wrong word or��sound alike� substitutions may have occurred due to the inherent limitations of voice recognition software.
Discharge Plan
Departure
Patient Disposition: Admit
Date of Disposition: 11/24/23
Time of Disposition: 16:58
Admit to: Med/Surg
Presentation/result/management discussed w/ accepting MD/DO: Hospitalist
Discharge Problem:
Pleural effusion on left, Hypoxia
Prescriptions:
No Action
hydralazine 25 mg Tablet
25 mg PO BID
aspirin 81 mg Tablet,Delayed Release (Dr/Ec)
81 mg PO HS
potassium chloride 20 mEq Tablet,Er Particles/Crystals
20 meq PO DAILY
ezetimibe [Zetia] 10 mg Tablet
10 mg PO DAILY
pitavastatin calcium [Livalo] 1 mg Tablet
1 mg PO MOWEFR
metoprolol succinate 25 MG tablet extended release 24 hr
12.5 mg PO HS
Eliquis 2.5 mg Tablet
2.5 mg PO BID
dofetilide 125 mcg capsule
125 mcg PO Q12H Qty: 180 3RF
furosemide 40 mg Tablet
40 mg PO BID AT 0800,1600 Qty: 60 0RF
Calcium And Magnesium
1 tab PO HS
Referrals:
Robb Rubio MD [Family Provider] -
Interventions
Interventions:
*Risk Screen - Suicide Last Done: 11/24/23 14:32
*General Assessment Last Done: 11/24/23 14:32
*Neglect/Abuse Screening Last Done: 11/24/23 14:32
ED- Cardiac Assessment Last Done: 11/24/23 15:17
ED- Pulmonary Assessment Last Done: 11/24/23 15:17
Discharge Date and Time
Print Language: ST LUCIAN
[2023-11-24 15:53] LABS: % Basophils 0.6 % (0-2); % Eosinophils 1.3 % (0-6); % Immature Granulocytes 0.4 % (0-0.5); % Lymphocytes 20.7 % (20.5-51.1); % Monocytes 7.8 % (1.7-9.3); % Neutrophils 69.2 % (42.2-75.2); Absolute Basophils 0.1 10^3/uL (0-0.2); Absolute Eosinophils 0.1 10^3/uL (0-0.7); Absolute Lymphocytes 1.6 10^3/uL (1.2-3.4); Absolute Monocytes 0.6 10^3/uL (0.1-0.6); Absolute Neutrophils 5.5 10^3/uL (1.4-6.5); Hemoglobin 10.5 g/dL (12.0-16.0); Mean Corpuscular Hgb 32.1 pg (27.0-31.0); Mean Corpuscular Volume 91.7 fL (81.0-99.0); Mean Platelet Volume 9.8 fL (7.4-10.4); Nucleated Red Blood Cells % 0 %; Platelet Count 451 10^3/uL (130-400); Red Blood Cell Count 3.27 10^6/uL (4.20-5.40); Red Cell Dist. Width 16.2 % (11.5-14.5); White Blood Cell Count 7.9 10^3/uL (4.8-10.8)
[2023-11-24 16:12] VITALS: BP 121/75
[2023-11-24 16:48] LABS: NT-proBNP 3930 pg/ml; Troponin I 0.047 ng/ml
[2023-11-24 17:00] VITALS: BP 116/70
[2023-11-24 17:00] LABS: ALT (SGPT) 17 U/L (0-35); AST (SGOT) 41 U/L (14-36); Albumin 2.6 g/dl (3.5-5.0); Alkaline Phosphatase 100 U/L (38-126); Blood Urea Nitrogen 31 mg/dl (7-17); Carbon Dioxide 23 mmol/L (22-30); Chloride 97 mmol/L (98-107); Glucose 82 mg/dl (70-99); Sodium 131 mmol/L (135-145); Total Bilirubin 0.5 mg/dl (0.2-1.3); Total Protein 6.3 g/dl (6.3-8.2); eGFR > 60.00
--- NOTE | 2023-11-24 17:04 | HPS.HSE ---
Addendum entered and electronically signed by Mendoza Moore DO 11/24/23 20:21:
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
pleural effusions over the last year that is presenting to the hospital with recurrent left pleural effusion.
Has had multiple drainages done here, 1 set of fluid studies with transudative properties per lights criteria, negative cytology.� No other studies obtained.
She examines grossly hypervolemic with lower extremity edema, abdominal distention, pulmonary edema.� Heart rhythm irregularly irregular.
Differentials are fairly broad and may be multifactorial process.� She does have physiology consistent with restrictive versus constrictive cardiac disease.� Additionally cannot rule out underlying malignancy or pleural integrity disturbance from
cardiac procedures including pacemaker.
Plan:
-Order thoracentesis with fluid studies, to be performed tomorrow with IR
-Will follow-up on lights criteria labs, cytology, triglycerides, cell count and culture
-Order echocardiogram to reassess LVEF, assess for restrictive disease
-Transition to IV Lasix for now in the setting of gross hypervolemia
-Trend troponin with serial ECG, monitor on telemetry
-CT C/A/P following thoracentesis for malignancy assessment
-Wean O2
-Cardiology consult
Original Note:
Family Physician
-
Family Physician: Kodak Rubio
Chief Complaint
-
Shortness of Breath
History of Present Illness
Patient is a 78 yo female with hx of permanent Afib, symptomatic bradycardia s/p pacemaker implantation on 10/18, HFpEF, HTN, and recurrent left pleural effusion, who presents with worsening SOB beginning today. She reports that she's received 4
thoracenteses thus far for left pleural effusion, with the last one being 6 days ago on 11/17. 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 Then this morning she noticed increased
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 She also reports a dry cough and weight loss. Since her 3 years ago she has lost 30lbs. Notes that she still has an appetite but that she 'just can't keep weight on.'
Denies fevers, chills, night sweats, chest pain, abdominal pain, or n/v/d.
Medical History
Past Medical History
Past Medical History: Reports Other
Additional Past Medical History:
Recurrent Left Pleural Effusion
Chronic HFpEF
Takotsubo CM w/recovered EF
Sick Sinus Syndrome
Symptomatic Bradycardia
Persistent Atrial Fibrillation
Essential Hypertension
Chronic Hyponatremia
Lymphocytic Colitis
Celiac Disease
Past Surgical History: Reports Other
Additional Past Surgical History:
Permanent Pacemaker 10/19/2023
Hernia Repair
Left Breast Lumpectomy
Social History
Tobacco: Former Smoker
Alcohol: None
Drug: None
Family History
Family History: Not pertinent
Allergies / Home Medications
Allergies reflects when Allergies were last updated in [facility].
Home Medications with original date entered in [employer]
Allergy/Medication List:
Allergies
Allergy/AdvReac Type Severity Reaction Status Date / Time
Antihistamines Allergy Rash Verified 11/18/23 12:56
Cephalosporins Allergy Rash Verified 11/18/23 12:56
diphenhydramine Allergy Pt denies Verified 11/18/23 12:56
hydrochlorothiazide Allergy Rash Verified 11/18/23 12:56
penicillin G Allergy Rash Verified 11/18/23 12:56
penicillin V Allergy Rash Verified 11/18/23 12:56
Penicillins Allergy Rash Verified 11/18/23 12:56
Home Medications
aspirin 81 mg tablet,delayed release 81 mg PO HS blood thinner 05/17/23
hydralazine 25 mg tablet 25 mg PO BID bp 03/12/24
apixaban 2.5 mg tablet (Eliquis) 2.5 mg PO BID afib 07/19/23
ezetimibe 10 mg tablet (Zetia) 10 mg PO DAILY cholesterol 07/19/23
metoprolol succinate 25 mg tablet,extended release 24 hr 12.5 mg PO HS bp 07/19/23
pitavastatin calcium 1 mg tablet (Livalo) 1 mg PO MOWEFR cholesterol 07/19/23
potassium chloride 20 mEq tablet,extended release(part/cryst) 20 meq PO DAILY Supplement 07/19/23
dofetilide 125 mcg capsule 125 mcg PO Q12H #180 caps 08/26/23
furosemide 40 mg tablet 40 mg PO BID AT 0800,1600 #60 tabs 09/30/23
Calcium And Magnesium 1 tab PO HS 11/24/23
Review of Systems
-
A 12 point ROS was completed and negative except as noted: Yes
Constitutional: Reports Weight Loss; Denies Fever, Night Sweats or Chills
Respiratory: Reports Cough and Trouble Breathing
Cardiac: Denies Chest Pain or Palpitations
Physical Exam
Vital Signs
Vital Signs
Temp Pulse Resp BP Pulse Ox
97.5 F 61 14 121/75 95
11/24/23 14:32 11/24/23 16:45 11/24/23 16:45 11/24/23 16:12 11/24/23 16:50
Physical Exam
General: Comfortable and Conversant
HEENT: Anicteric, Moist mucous membranes and Oxygen (Nasal Cannula)
Respiratory: Clear, Non Labored Respirations and Decreased Breath Sounds (Entire left lung pope)
Cardiac: S1/S2 and Irregular Rhythm
GI: Soft and Non Tender
Musculoskeletal: No Clubbing, No Cyanosis and Other (+1 edema bilateral lower ext)
Skin: Warm and Dry
Neuro: Awake, Alert, Oriented and Nonfocal/grossly intact
Psych: Calm
Laboratory Results
-
11/24/23 15:43
11/24/23 16:29
Laboratory Results
Total Bilirubin 0.5 mg/dl (0.2-1.3) 11/24/23 16:29
AST 41 U/L (14-36) H 11/24/23 16:29
ALT 17 U/L (0-35) 11/24/23 16:29
Alkaline Phosphatase 100 U/L (38-126) 11/24/23 16:29
Troponin I 0.047 ng/ml H* 11/24/23 16:15
Impression/Plan
-
Acute Hypoxic Respiratory Insufficiency secondary to Recurrent Left Pleural Effusion
-Prior thoracentesis on 05/17, 08/27, 10/19 and 11/17
-Consult IR for thoracentesis
-Check fluid studies
-Consider tunnelled pleural catheter
Acute on Chronic HFpEF
-Consult Cardiology
-Continue Lasix
-Monitor Is&Os and Daily Weights
Non-Ischemic Myocardial Injury secondary to Acute Heart Failure
-Continue to trend
Persistent Atrial Fibrillation
-Continue Tikosyn and Toprol
-Continue Eliquis
Essential Hypertension
-Continue hydralazine and metoprolol
Hyperlipidemia
-Continue Zetia and Livalo
Chronic Hyponatremia
-Sodium level is stable
Sick Sinus Syndrome / Symptomatic Bradycardia s/p PPM on Oct 18
Hx Takotsubo CM w/recovered EF
DVT proph: Eliquis
Code Status: Full Code
[2023-11-24 18:01] VITALS: BP 132/67
[2023-11-24 19:37] VITALS: BMI 21.7
[2023-11-24 19:43] VITALS: BP 128/79; BMI 21.7
[2023-11-24] MEDS: LASIX 40 MG IV (20:18)
[2023-11-24] MEDS: ELIQUIS 2.5 MG PO (20:19)
[2023-11-24] MEDS: APRESOLINE 25 MG PO (20:19)
[2023-11-24] MEDS: TIKOSYN 125 MCG PO (20:39)
[2023-11-24] MEDS: TOPROL XL 12.5 MG PO (21:44)
[2023-11-24] MEDS: ASPIR LOW (ENTERIC COATED) 81 MG PO (21:44)
[2023-11-24 22:52] LABS: Troponin I 0.045 ng/ml
[2023-11-24 23:30] VITALS: BP 113/67
[2023-11-25] VITALS (9 sets, daily range): BP systolic 64–130; BP diastolic 57–72; PULSE 66; O2SAT 100; BMI 21.5
[2023-11-25 04:47] LABS: Hematocrit 25.3 % (37.0-47.0); Hemoglobin 8.7 g/dL (12.0-16.0); Mean Corp Hgb Conc. 34.4 g/dL (33.0-37.0); Mean Corpuscular Hgb 31.8 pg (27.0-31.0); Mean Corpuscular Volume 92.3 fL (81.0-99.0); Mean Platelet Volume 9.7 fL (7.4-10.4); Platelet Count 380 10^3/uL (130-400); Red Blood Cell Count 2.74 10^6/uL (4.20-5.40); Red Cell Dist. Width 16.1 % (11.5-14.5); White Blood Cell Count 6.2 10^3/uL (4.8-10.8)
[2023-11-25 04:57] LABS: Blood Urea Nitrogen 34 mg/dl (7-17); Calcium 7.9 mg/dl (8.4-10.2); Carbon Dioxide 25 mmol/L (22-30); Chloride 99 mmol/L (98-107); Estimated Creatinine Clearance 42 ml/min; Glucose 102 mg/dl (70-99); LDH 171 U/L (120-246); Potassium 3.6 mmol/L (3.5-5.1); Sodium 131 mmol/L (135-145); eGFR 56.95
[2023-11-25 05:05] LABS: Troponin I 0.041 ng/ml
[2023-11-25] MEDS: OMNIPAQUE 50 ML PO (05:54)
--- NOTE | 2023-11-25 08:27 | CON.CAR ---
Addendum entered and electronically signed by Jose Alberto Tran MD 11/25/23 16:49:
78-year-old woman with history of remote PVI, Recent pacemaker, paroxysmal atrial fibrillation, HFpEF, recurrent left pleural effusion now admitted with recurrent left pleural effusion and dyspnea. Has had a total of 5 thoracenteses most recently
this morning and previously on November 17 and October 19 and September 26 and May 2023. Fluid has been transudative. proBNP is 3930. Currently with less dyspnea.
PMH: HFpEF, negative pyrophosphate scan October 2023, history of atrial fibrillation with PVI in 2016 and pulsed field ablation in August of this year, currently on dofetilide therapy, Takotsubo cardiomyopathy in 2005, hyperlipidemia, hypertension and
prior lower extremity cellulitis with lower extremity wounds
Outpatient medications: Aspirin 81 mg a day, dofetilide 125 mcg every 12, Eliquis 2.5 mg twice daily, ezetimibe, furosemide 40 mg twice daily, hydralazine 25 mg twice daily, metoprolol ER 12.5 mg daily, Potaba statin, potassium 20 mill equivalents
daily
Current meds: Dofetilide 125 mcg every 12 hours, aspirin 81 mg a day, apixaban 2.5 mg twice daily hydralazine 25 mg twice daily, atorvastatin 10 mg 3 days a week, metoprolol ER 12.5 mg at bedtime, potassium 20 mEq daily, ezetimibe 10 daily,
furosemide 40 IV twice daily
119/63 pulse 60s, head neck exam unremarkable, lungs are relatively clear, soft systolic murmur at apex JVD not markedly elevated, abdomen benign, extremities without substantial edema distal pulses palpable neuro integumentary musculoskeletal and
psych all normal
Hemoglobin 8.7, had been in the nines, white count 6.2, sodium 131, troponin 0.041 LDH 171, BUN and creatinine 34 and 1, potassium 3.6, pleural feel it appears to be transudative
EKG probable atrial rhythm
Echo 11/25/2023: EF 55-60%, global longitudinal strain -14.2%, stage III diastolic dysfunction, MAC, mild MR, dilated left atrium, aortic sclerosis, normal right heart, pacing wires, moderate TR, pulmonary artery systolic pressure 45-50 mmHg
Impression:
See below
Current major issue is recurrent acute on chronic HFpEF with left pleural effusion that rapidly reaccumulate
Plan:
She presents with recurrent left pleural effusions that are transudative's.
.
Will continue IV Lasix for now, will need to watch for hyponatremia.
.
She is not on Farxiga or spironolactone, will discuss with her primary fern cutter.
She had a negative pyrophosphate scan but has not been screened for light chains/MGUS. Will discuss with primary fern cutter.
Not certain if there is a role for right heart catheterization in this setting. She has dense atherosclerotic calcification and coronary artery calcification but has not had clinical angina and systolic LV function is preserved.
Original Note:
Consultation
Consultation Request
Date/Time Consultation Performed: 11/25/2023
Requesting Provider: Dr. Moore
Performing Provider: Gloria Kennedy PA-C for Dr. FELIPA Tran
Reason for Consultation: CHF, recurrent pleural effusion
Medical History
-
History of Present Illness:
HPI: Gabriela is an 78 year old female with PMH of symptomatic bradycardia s/p PPM, chronic HFpEF, persistent atrial fibrillation, takotsubo CM, recurrent L pleural effusion, HTN, HLD, MR, and chronic anemia. She presented to [facility] for evaluation
of worsening SOB. She has had multiple recent left sided thoracenteses, most recently 11/17. She noticed increased SOB in AM 11/23 as well as a cough. She called the cardiology office and was recommended to come to ER for evaluation. In ER, she was
found to have recurrent L pleural effusion as well as evidence of acute heart failure with proBNP 3930. She was admitted and started on IV lasix. This AM, she had another thoracentesis with 1700 cc removed. Fluid studies pending. Cardiology
consulted for evaluation given acute heart failure exacerbation. She reports feeling improved following thoracentesis.
PMH:
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
Chronic HFpEF
Persistent atrial fibrillation
Prior PVI (2016)
s/p PFA 08/24/23
Maintained on Tikosyn
Chronic anticoagulation on Eliquis
Takotsubo CM w/recovered EF (2005)
Recurrent left-sided pleural effusion
s/p thoracentesis 05/18/2023 w/ 750 cc removed
s/p thoracentesis 09/27/2023 w/ 1500 cc removed
s/p thoracentesis 10/20/2023 w/ 1450 cc removed
s/p thoracentesis 11/18/2023 w/ 1500 cc removed
HLD
HTN
MR
Renal nephrosis
Vertigo
Lung Nodule (2021, stable)
Anemia
LE cellulitis (05/14/23)
Past Medical History
Past Medical History: Other (See HPI)
Past Surgical History: Cardiac (PVI ablation 2016, pulsed field ablation 08/24/2023) and Other (Bilateral hernia repair, left breast lumpectomy, cataract extraction)
Social History
Tobacco: Former Smoker
Alcohol: None
Drug: None
Living: With Family
Family History
Family History: CAD and Hypertension
Allergies / Home Medications
Allergy/AdvReac Type Severity Reaction Status Date / Time
Antihistamines Allergy Rash Verified 11/18/23 12:56
Cephalosporins Allergy Rash Verified 11/18/23 12:56
diphenhydramine Allergy Pt denies Verified 11/18/23 12:56
hydrochlorothiazide Allergy Rash Verified 11/18/23 12:56
penicillin G Allergy Rash Verified 11/18/23 12:56
penicillin V Allergy Rash Verified 11/18/23 12:56
Penicillins Allergy Rash Verified 11/18/23 12:56
�Medication �Instructions �Recorded �Confirmed �Type
aspirin 81 mg tablet,delayed 81 mg PO HS blood thinner 05/17/23 11/24/23 History
release
hydralazine 25 mg tablet 25 mg PO BID bp 05/17/23 11/24/23 History
apixaban 2.5 mg tablet (Eliquis) 2.5 mg PO BID afib 07/19/23 11/24/23 History
ezetimibe 10 mg tablet (Zetia) 10 mg PO DAILY cholesterol 07/19/23 11/24/23 History
metoprolol succinate 25 mg 12.5 mg PO HS bp 07/19/23 11/24/23 History
tablet,extended release 24 hr
pitavastatin calcium 1 mg tablet 1 mg PO MOWEFR cholesterol 07/19/23 11/24/23 History
(Livalo)
potassium chloride 20 mEq 20 meq PO DAILY Supplement 07/19/23 11/24/23 History
tablet,extended release(part/cryst)
dofetilide 125 mcg capsule 125 mcg PO Q12H #180 caps 08/26/23 11/24/23 Rx
furosemide 40 mg tablet 40 mg PO BID AT 0800,1600 #60 tabs 09/30/23 11/24/23 Rx
Calcium And Magnesium 1 tab PO HS 11/24/23 11/24/23 History
Review of Systems
-
History Source: Patient
All other systems: Negative unless noted
Physical Exam
Vital Signs
Temp Pulse Resp BP Pulse Ox
97.6 F 64 20 119/61 100
11/25/23 07:50 11/25/23 07:50 11/25/23 07:50 11/25/23 07:50 11/25/23 07:50
Lab Results
11/25/23 04:15
11/25/23 04:15
Troponin I 0.041 ng/ml H* 11/25/23 04:15
Nvk-X-Ghngzczstps Pept 3930 pg/ml 11/24/23 16:15
Physical Exam
General: Well Developed, Well Nourished and No Apparent Distress
HEENT: Normocephalic, Anicteric and Moist Mucous Membranes
Respiratory: Clear and Non Labored Respirations
Cardiac: S1/S2 and Regular Rhythm
Musculoskeletal: No Clubbing, No Cyanosis and Edema
Skin: Warm and Dry
Neuro: AO x 3 and Nonfocal/Grossly Intact
Psych: Calm
Impression / Plan
-
PCP: Stella Sutherland PA-C
Art Department Head: Dr. Kiera Diaz
Impression:
Presented with SOB
Acute on chronic HFpEF
Recurrent left-sided pleural effusion
s/p thoracentesis 05/18/2023 w/ 750 cc removed
s/p thoracentesis 09/27/2023 w/ 1500 cc removed
s/p thoracentesis 10/20/2023 w/ 1450 cc removed
s/p thoracentesis 11/18/2023 w/ 1500 cc removed
s/p thoracentesis 11/25/2023 w/ 1700 cc removed
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
Hyponatremia
Elevated troponin, suspect nonischemic myocardial injury
Persistent atrial fibrillation
Prior PVI (2016)
s/p PFA 08/24/23
Maintained on Tikosyn
Chronic anticoagulation on Eliquis
Takotsubo CM w/recovered EF (2005)
HLD
HTN
MR
Renal nephrosis
Vertigo Edema
Lung Nodule (2021, stable)
Anemia
Hyponatremia
LE cellulitis (05/14/23)
Echo 05/18/2023: EF 69%, stage II diastolic dysfunction. Moderately dilated right atrium. Mild to moderate MR. Mild TR. PAP 36 mmHg. Small pericardial effusion
Echo 11/25/2023: Study completed, report pending
Plan:
-Presented with SOB. Found to have recurrent L pleural effusion and acute heart failure.
-Diuresing with IV lasix 40mg BID. Weight 133lbs in AM 11/24. Prior discharge weight 10/2023 was 122lbs.
-Creat stable at 1.0. Follow daily weights, I&Os.
-Lg L pleural effusion noted on initial chest xray 11/23. s/p thoracentesis 11/24 with 1700 cc removed. Await fluid studies.
-Check echo. Previously noted to have preserved EF and mild to moderate MR by echo 05/2023.
-Elevated troponin noted with peak troponin 0.045, trending down thereafter. Suspect nonischemic myocardial injury in the setting of acute heart failure exacerbation.
-K 3.6. Replete.
-Hgb 8.7. Chronic anemia noted. Defer to primary service.
-EKG reviewed. Maintaining SR on Tikosyn, continue.
-Continue Eliquis 2.5mg BID for anticoagulation.
-BP stable, continue hydralazine and Toprol.
HPI: Gabriela is an 78 year old female with PMH of symptomatic bradycardia s/p PPM, chronic HFpEF, persistent atrial fibrillation, takotsubo CM, recurrent L pleural effusion, HTN, HLD, MR, and chronic anemia. She presented to [facility] for evaluation
of worsening SOB. She has had multiple recent left sided thoracenteses, most recently 11/17. She noticed increased SOB in AM 11/23 as well as a cough. She called the cardiology office and was recommended to come to ER for evaluation. In ER, she was
found to have recurrent L pleural effusion as well as evidence of acute heart failure with proBNP 3930. She was admitted and started on IV lasix. This AM, she had another thoracentesis with 1700 cc removed. Fluid studies pending. Cardiology
consulted for evaluation given acute heart failure exacerbation. She reports feeling improved following thoracentesis.
Data Reviewed
-
EKG: Tracing Personally Visualized and interpreted
Radiology: Report Reviewed by me
CT Scan: Report Reviewed by me
Labs: Labs Reviewed by me
Old Records: Reviewed
[2023-11-25 08:53] LABS: Body Fluid pH 7.46
[2023-11-25 09:06] LABS: Body Fluid Amylase 51 U/L; Body Fluid Glucose 108 mg/dl; Body Fluid LDH 110 U/L; Body Fluid Protein < 2.0 g/dl; Body Fluid Triglycerides < 30 mg/dl
[2023-11-25 09:32] LABS: Body Fluid Mononuclear 79.2 %; Body Fluid Polymorphonuclear 20.8 %; Body Fluid WBC 326 /CUMM
[2023-11-25 09:52] LABS: Body Fluid Second Tech CMB
[2023-11-25] MEDS: TIKOSYN 125 MCG PO ×2 (11:54→20:18)
[2023-11-25] MEDS: ELIQUIS 2.5 MG PO ×2 (11:54→20:18)
[2023-11-25] MEDS: LASIX 40 MG IV ×2 (11:54→16:33)
[2023-11-25] MEDS: ZETIA 10 MG PO (11:54)
[2023-11-25] MEDS: APRESOLINE 25 MG PO ×2 (11:54→20:18)
[2023-11-25] MEDS: KCL 20 MEQ PO ×2 (11:54→14:40)
[2023-11-25] MEDS: LIPITOR 10 MG PO (11:56)
--- NOTE | 2023-11-25 13:32 | W.PN.HOSP.TC ---
Today's Communication/Plan
-
Follow-up pleural fluid cytology and culture
Continue with IV diuretics
Pulmonology consult
Follow-up cardiology recs
Wean oxygen as possible
Assessment / Plan
Assessment / Plan
#Acute hypoxemic respiratory insufficiency
#Recurrent exudative left pleural effusion
-Unclear etiology, has had multiple thoracentesis over the last year
-Only 1 set of fluid studies that show transudative effusion, no signs of malignancy
-CT C/A/P today showed stable lymphadenopathy, no new masses or signs of malignancy
-CT was done prior to thoracentesis, may not in the visualized lung clearly
-Fluid studies showed Lights criteria positive; cell counts and glucose WNL; cytology and culture pending
-Remains comfortable on low level of oxygen today with SpO2 in the mid 90s
Plan
-Plan to repeat chest x-ray in the morning
-Follow-up pleural fluid cytology and culture
-Consider repeating CT thorax now that fluid removed
-Pulmonology consult
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
#H/O Takotsubo cardiomyopathy
-Was grossly hypervolemic on arrival with abdominal distention, leg edema, pleural fluid
-Transition to home Lasix oral to IV regimen, urine output adequate thus far
-Still remains hypervolemic today, does seem slightly improved
-TTE was performed this morning, results still pending
Plan
-Continue beta-pasha for GDMT
-Continue with IV Lasix regimen, I's/O's and trend BMP
-Follow-up echocardiogram results from today
#Nonischemic myocardial injury 2/2 acute heart failure
-No chest pain or ischemic ECG findings on admission
-Troponin trend not consistent with ACS, relatively flat
#Persistent atrial fibrillation
-Home medications include dofetilide, metoprolol tartrate, Eliquis
-Has had multiple cardioversions in the past with recurrence
-Heart rate irregular though WNL on average here
#Hypertension
-No medications include metoprolol and hydralazine
-Blood pressure currently adequate
#Hyperlipidemia
-No known history of ASCVD, Home meds include statin and
#Chronic hyponatremia
-Possibly hypervolemic with her recurrent effusions
-Serum sodium baseline in the high 120s, 130 range
-Upon arrival her serum sodium was 31, has been stable
-Will monitor daily BMP while here on IV
#Celiac's disease
-Gluten-free diet
-No signs of flare
#Sick sinus syndrome s/p PPM (October 18)
DVT prophylaxis: Eliquis
Diet: Gluten-free
CODE STATUS: Full code
Anticipated Discharge: 24 - 48 hours
Subjective/Interval History
-
Date of Service: November 25, 2023
Seen and examined at the bedside. No acute events overnight. AFVSS this morning on 2 L oxygen.
She had just returned from multiple studies including TTE, CT scan, thoracentesis. She felt tired from these events that all occurred early in the morning.
She denies any new acute complaints, states her breathing is slightly improved following thoracentesis though does have some cough from her lung reexpansion. She denies any chest pain, shortness of breath, fevers or chills, nausea, cough, diarrhea,
abdomen pain, abnormal bleeding or bruising, urinary issues, paresthesias or weakness.
Objective Data
-
Labs:
Laboratory Results
11/25/23
04:15
WBC 6.2
Hgb 8.7 L
Hct 25.3 L
Plt Count 380
Sodium 131 L
Potassium 3.6
Chloride 99
Carbon Dioxide 25
BUN 34 H
Creatinine 1.0
Glucose 102 H
Calcium 7.9 L
Vital Signs:
Vital Signs
Temp Pulse Resp BP Pulse Ox
97.7 F 64 16 114/60 100
11/25/23 11:01 11/25/23 11:01 11/25/23 11:01 11/25/23 11:01 11/25/23 11:01
I&O
11/24/23 11/25/23 11/26/23
06:59 06:59 06:59
Intake Total 480 / 480
Balance 480 / 480
Review of Systems
-
History Source: Patient
All other systems: Reviewed and negative
Physical Exam
-
General: No Apparent Distress, Comfortable and Other (Thin, frail appearing); Negative Respiratory Distress
HEENT: Normocephalic, Atraumatic, Moist Mucous Membranes and Anicteric
Respiratory: Clear to Auscultation, Rales (Left lung base, improved) and Non Labored Respirations; Negative Wheezes, Rhonchi or Accessory Resp Muscle Use
Cardiac: S1/S2, Irregular Rhythm, Murmur and JVD; Negative Rub or Gallop
GI: Soft, Nontender, Normal Bowel Sounds and Distended
Musculoskeletal: No Clubbing, No Cyanosis and Other (1+ lower extremity edema)
Skin: Warm and Dry; Negative Rash
Neuro: AO x 3, Nonfocal/Grossly Intact and Central Nerve's Intact
Data Reviewed
-
CT Scan: Report Reviewed by me and Discussed with Patient
Labs: Labs Reviewed by me and Discussed with Patient
--- NOTE | 2023-11-25 13:47 | CON.PUL ---
Consultation
Consultation Request
Date/Time Consultation Requested: 11/25/2023 - 1340
Date/Time Consultation Performed: 11/25/2023 - 1344
Requesting Provider: Dr. Moore
Performing Provider: Dr. Castellanos
Reason for Consultation: Left pleural effusion
Medical History
-
Chief Complaint: SOB
History of Present Illness:
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
effusion requiring multiple thoracenteses (last on 11/18/2023), anemia, history of lower extremity cellulitis, pulmonary nodule and vertigo who presents with SOB. She was recently hospitalized from 10/19 -10/22/2023 initially for symptomatic
bradycardia with dual-chamber permanent pacemaker implantation, with postprocedure CXR showing a large left-sided pleural effusion with thoracentesis draining 1.45 L the next day on 10/20/2023. She was discharged home on 10/21 with instructions to
repeat BMP in 1 week due to acute on chronic hyponatremia (Na on discharge 130; baseline Na 127-132). She had an outpatient thoracentesis on 11/18/2023 and felt very 'full' in her abdomen which was causing shortness of breath prior to procedure.
1.5 L were removed on 11/17. She is now coming into the hospital again with SOB and it appeared grossly volume overloaded on exam, and she endorsed dry cough and weight loss. She has lost about 30 pounds over the last 3 years despite her having a
normal appetite. CXR on 11/24/2023 showed large left-sided pleural effusion as well as small right-sided pleural effusion. Thoracentesis done today removing 1.7 L of transudative fluid (monocyte predominant, fluid pH: 7.46 with glucose 108).
Post-thoracentesis CT chest showed moderate centrilobular emphysema with small residual left pleural effusion and mild�moderate sized right pleural effusion. There were no other masses or suspicious nodules seen on the remainder for lung
parenchyma, and also dense coronary artery calcifications. Also diffuse subcutaneous edema throughout the chest, abdomen and pelvis extending into the proximal thighs. She has been admitted to the floor with cardiology consulted. Pulmonary now
consulted as well for additional recommendations/management.
When I saw the patient she had just come back from her thoracentesis. She feels much better. She is currently on room air breathing comfortably. She says she has a 'history of nephrosis as a child as a complication from having measles.' She
denies having any body swelling throughout her life until recently. She admits that she has a normal well-balanced diet, and eats 'normally.' She currently denies chest pain, GAY, abdominal pain, nausea, fevers or chills.
Of note, patient follows with us in the pulmonary office with last visit on 11/22/2023 with JANA Mayers. She was seen as a hospital discharge follow-up. She has had multiple thoracenteses with last on 11/18/2023 with improvement in his
shortness of breath initially but then her SOB slowly started to get worse. Repeat thoracentesis was arranged with CT chest following procedure. She does have a history of pleural thickening at the right base seen on CT chest in May 2023 which
was not present on prior imaging from 2021. She also has severe coronary artery calcifications
PMHx: Bradycardia status post pacemaker placement 10/19/2023, chronic heart failure with normal EF, atrial fibrillation status post PVI, on chronic anticoagulation, history of lymphocytic colitis/celiac disease. History of Takotsubo cardiomyopathy
2005, with recovered EF. Recurrent left-sided pleural effusion status post thoracentesis 05/17, 09/26, 10/19/2023 and 11/18/2023, Hypertension, hyperlipidemia, vertigo, pulmonary nodule, anemia, hyponatremia, history of lower extremity cellulitis
PSHx: Cardioversion
Past Medical History
Past Medical History: Other (Above as per HPI)
Past Surgical History: Other (Above as per HPI)
Social History
Tobacco: Former Smoker ([id number] history, quit many years ago. Smoked for 40 years)
Alcohol: None
Drug: None
Personal: ( from myasthenia gravis)
Living: Alone
Employment: Retired
Family History
Family History: Other (Father age 74 from kidney lesion, son had heart attack age 47. Mother at age 92. Brother with renal disease on dialysis, brother with heart disease. 4 children otherwise healthy)
Allergies / Home Medications
Allergies
Allergy/AdvReac Type Severity Reaction Status Date / Time
Antihistamines Allergy Rash Verified 11/18/23 12:56
Cephalosporins Allergy Rash Verified 11/18/23 12:56
diphenhydramine Allergy Pt denies Verified 11/18/23 12:56
hydrochlorothiazide Allergy Rash Verified 11/18/23 12:56
penicillin G Allergy Rash Verified 11/18/23 12:56
penicillin V Allergy Rash Verified 11/18/23 12:56
Penicillins Allergy Rash Verified 11/18/23 12:56
Home Medications
�Medication �Instructions �Recorded �Confirmed �Last Taken �Type
aspirin 81 mg tablet,delayed 81 mg PO HS blood thinner 05/17/23 11/24/23 11/23/23 History
release
hydralazine 25 mg tablet 25 mg PO BID bp 05/17/23 11/24/23 11/24/23 History
apixaban 2.5 mg tablet (Eliquis) 2.5 mg PO BID afib 07/19/23 11/24/23 11/24/23 History
ezetimibe 10 mg tablet (Zetia) 10 mg PO DAILY cholesterol 07/19/23 11/24/23 11/24/23 History
metoprolol succinate 25 mg 12.5 mg PO HS bp 07/19/23 11/24/23 11/23/23 History
tablet,extended release 24 hr
pitavastatin calcium 1 mg tablet 1 mg PO MOWEFR cholesterol 07/19/23 11/24/23 11/23/23 History
(Livalo)
potassium chloride 20 mEq 20 meq PO DAILY Supplement 07/19/23 11/24/23 11/24/23 History
tablet,extended release(part/cryst)
dofetilide 125 mcg capsule 125 mcg PO Q12H #180 caps 08/26/23 11/24/23 11/24/23 Rx
furosemide 40 mg tablet 40 mg PO BID AT 0800,1600 #60 tabs 09/30/23 11/24/23 11/24/23 Rx
Calcium And Magnesium 1 tab PO HS 11/24/23 11/24/23 11/23/23 History
Review of Systems
-
History Source: Patient
All other systems: Negative unless noted
Vitals / Labs / Diagnostic Testing
Vital Signs
Temp Pulse Resp BP Pulse Ox
97.7 F 64 16 114/60 100
11/25/23 11:01 11/25/23 11:01 11/25/23 11:01 11/25/23 11:01 11/25/23 11:01
Lab Data
11/25/23 04:15
11/25/23 04:15
Microbiology
11/25/23 08:22 Pleural Fluid Gram Stain - Preliminary
Diagnostic Testing:
Physical Exam
-
HEENT: Normocephalic and Anicteric
Cardiovascular: Irregular Rhythm (Irregularly irregular), Peripheral Edema (Trace lower extremity pitting edema bilaterally) and Other (Normal heart rate)
Respiratory: Wheeze (negative), Rales (Left base), Rhonchi (negative), Non-Labored Respirations and Other (Diminished breath sounds in the right base)
GI: Soft, Non Distended, Non Tender and Normal Bowel Sounds
Neurology: AO x 3 and Tremors (negative)
Skin: Warm and Dry
General: Respiratory Distress (negative), Comfortable, Fever (negative) and Chills (negative)
Assessment
-
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
left-sided pleural effusion requiring multiple thoracenteses (last on 11/18/2023), anemia, history of lower extremity cellulitis, pulmonary nodule and vertigo who presents with SOB. She was recently hospitalized from 10/19 -10/22/2023 initially for
symptomatic bradycardia with dual-chamber permanent pacemaker implantation, with postprocedure CXR showing a large left-sided pleural effusion with thoracentesis draining 1.45 L the next day on 10/20/2023. She was discharged home on 10/21 with
instructions to repeat BMP in 1 week due to acute on chronic hyponatremia (Na on discharge 130; baseline Na 127-132). She had an outpatient thoracentesis on 11/18/2023 and felt very 'full' in her abdomen which was causing shortness of breath prior
to procedure. 1.5 L were removed on 11/17. She is now coming into the hospital again with SOB and it appeared grossly volume overloaded on exam, and she endorsed dry cough and weight loss. She has lost about 30 pounds over the last 3 years despite
her having a normal appetite. CXR on 11/24/2023 showed large left-sided pleural effusion as well as small right-sided pleural effusion. Thoracentesis done today removing 1.7 L of transudative fluid (monocyte predominant, fluid pH: 7.46 with glucose
108). Post-thoracentesis CT chest showed moderate centrilobular emphysema with small residual left pleural effusion and mild�moderate sized right pleural effusion. There were no other masses or suspicious nodules seen on the remainder for lung
parenchyma, and also dense coronary artery calcifications. Also diffuse subcutaneous edema throughout the chest, abdomen and pelvis extending into the proximal thighs. She has been admitted to the floor with cardiology consulted. Pulmonary now
consulted as well for additional recommendations/management.
Conditions present [employer]
Celiac Disease 1975
Takotsobu cardiomyopathy-recovered EF
s/p CARDIOGENIC SHOCK 04/08/05 EF 20% IMPROVED TO 50 % 04/09/[address]
Former smoker >20 pack years, quit 30 years ago
Hiatal hernia
Lyme disease
Carotid Disease
Hypertension
PANCREATITIS 2006
Irritable bowel disease
CHF
SVT/Paroxysmal atrial fibrillation s/p Cardioversion 06/18/2016
Endometrial polyps s/p D & C, polypectomy
HYPERLIPIDEMIA - MIXED
Fracture right foot/ankle in Feb 2018
Lymphocytic Colitis
Ambulatory dysfunction/Balance issues
Inguinal herniographies xs 2 02/25/2011
Vein removal in Lt. inner foot 2020
Bilateral cataract surgeries 2020
History of pancreatitis 2005
Impression:
#Recurrent left-sided pleural effusion s/p multiple thoracentesis, also chronic right-sided pleural effusion
#Acute respiratory failure with hypoxia due to above
#Anasarca
#Hypoalbuminemia
#Chronic HFpEF
#Valvular heart disease with mild�moderate MR + mild TR with mild pulmonary hypertension with PASP 36 mmHg assuming an RAP of 3 mmHg (via TTE in May 2023)
#Coronary artery arteriosclerosis seen on CT chest
Plan:
- She is now s/p thoracentesis today with 1.7 L of transitive fluid removed
- She does have multiple risk factors for volume overload including hypoalbuminemia and diastolic heart failure with valvular heart disease (MR)
- Her proBNP checked on 11/24/2023 was 3930 which is the highest that she has ever been since May 2022
- Repeat TTE as last one done in July 2023 ([facility]) --> echo today shows stage III diastolic dysfunction with normal LV size with no regional WMA and EF 55 to 60%, also normal RV with dilated right atrium and moderate TR with moderate pulmonary
hypertension with PASP 45-50 mmHg
- Cardiology consulted with recs appreciated
- Continue aggressive IV diuresis with albumin to help improve diuresis by raising oncotic pressure
- Replete electrolytes with K>4, Mg>2 while being aggressively diuresed
- Maintain net negative fluid balance as tolerated
- Check for albuminuria/proteinuria with spot microalbumin/Cr ratio
- Repeat CXR in 24-48 hrs to re-assess if pleural fluid as re-accumulated
- Follow up pleural fluid Cx and cytopathology from today (11/25/2023)
- Hold off on Abx as no concern for infectious process currently and she is non-toxic appearing
- Continue tikosyn, hydralazine and toprol-XL
- Maintain SpO2 >90-94% with supplemental O2 as needed
- Incentive spirometer encouraged
- Maintain euglycemia with goal BG >100 and <180
- prn nebulized bronchodilators - not currently bronchospastic
- PT/OT
- DVT ppx: Eliquis
Pulmonary service will continue to follow along. She has an appointment on 12/14/[address] Castellanos. I advised her to keep that appointment.
Data:
Post-thoracentesis CT chest, abdomen, pelvis with IV contrast 11/25/2023:
Small left pleural effusion. Small to moderate right pleural effusion.
Atelectasis within the lower lungs.
Moderate changes of emphysema within the upper to mid lungs.
Small pericardial effusion.
Dense coronary artery calcifications. Please correlate with symptoms of and risk factors for coronary artery disease, with further workup as clinically appropriate.
Slightly enlarged lymph nodes in the periaortic and interaortocaval region, similar to previous examination of May 19, 2023. These are nonspecific and could be reactive inflammatory lymph nodes, but could also be neoplastic. Stability would favor
reactive inflammatory nodes.
Diffuse subcutaneous edema. Small to moderate amount of free fluid within the pelvic cul-de-sac.
Degenerative changes as described. No CT evidence for bony metastatic disease.
TTE 11/25/2023:
1. Normal left ventricular size with mild LVH, no regional wall motion
abnormality, EF 55-60% but with global longitudinal strain of -14.2%. Stage
III diastolic dysfunction.
2. Thickened mitral leaflets, mitral annular calcification, mild mitral
regurgitation and dilated left atrium
3. Aortic sclerosis without stenosis or significant aortic regurgitation
4. Normal right ventricle, pacing wire seen, dilated right atrium, moderate
tricuspid regurgitation and pulmonary artery systolic pressure 45-50 mmHg
Study is similar to May 2023. Right atrial pressure was 36 mmHg at that
time.
Total time spent today was 75 minutes for this encounter. Time includes reviewing laboratory test/imaging results, reviewing pertinent medical records, obtaining and reviewing medical history, performing an appropriate exam, ordering medications,
tests and procedures. Time also includes documentation of this encounter, coordinating patient care and communicating with other healthcare professionals. Total time does not include separately billed tests performed on this date of service.
[2023-11-25] MEDS: FLEXBUMIN 100 IV ×2 (14:40→20:16)
--- NOTE | 2023-11-25 16:59 | CM ---
CM met with Gabriela to complete IA today.
Pt resides with her grandson and his spouse in a 2SH with 1 entry step and a full flight to 2nd floor. Her son All lives next door.
Pt is independent AMB and ADLs, no DME, drives, and works at the [employer].
Plan: Discharge to home. No anticipated needs.
PCP- Robb Rubio
Rx- Jessica Epperson
[2023-11-25] MEDS: TOPROL XL 12.5 MG PO (21:18)
[2023-11-25] MEDS: ASPIR LOW (ENTERIC COATED) 81 MG PO (21:18)
[2023-11-26] VITALS (7 sets, daily range): BP systolic 104–119; BP diastolic 60–82; BMI 21.5
[2023-11-26] MEDS: FLEXBUMIN 100 IV ×2 (02:08→08:30)
[2023-11-26 03:50] LABS: Microalbumin, Random Urine 2.9 mg/dl (0.6-1.7); Microalbumin/creatinine Ratio 62.4 mg/g
[2023-11-26 05:49] LABS: % Basophils 0.5 % (0-2); % Eosinophils 1.4 % (0-6); % Immature Granulocytes 0.2 % (0-0.5); % Lymphocytes 24.1 % (20.5-51.1); % Monocytes 10.3 % (1.7-9.3); % Neutrophils 63.5 % (42.2-75.2); Absolute Eosinophils 0.1 10^3/uL (0-0.7); Absolute Lymphocytes 1.5 10^3/uL (1.2-3.4); Absolute Monocytes 0.7 10^3/uL (0.1-0.6); Absolute Neutrophils 4.1 10^3/uL (1.4-6.5); Hematocrit 24.7 % (37.0-47.0); Hemoglobin 8.5 g/dL (12.0-16.0); Mean Corp Hgb Conc. 34.4 g/dL (33.0-37.0); Mean Corpuscular Hgb 32.7 pg (27.0-31.0); Mean Platelet Volume 9.6 fL (7.4-10.4); Nucleated Red Blood Cells % 0 %; Platelet Count 354 10^3/uL (130-400); Red Cell Dist. Width 16.1 % (11.5-14.5); White Blood Cell Count 6.4 10^3/uL (4.8-10.8)
[2023-11-26 06:51] LABS: Blood Urea Nitrogen 26 mg/dl (7-17); Calcium 8.1 mg/dl (8.4-10.2); Carbon Dioxide 26 mmol/L (22-30); Chloride 97 mmol/L (98-107); Estimated Creatinine Clearance 47 ml/min; Glucose 117 mg/dl (70-99); Magnesium 1.9 mg/dl (1.6-2.3); Phosphorus 3.5 mg/dl (2.5-4.5); Potassium 3.8 mmol/L (3.5-5.1); Sodium 130 mmol/L (135-145); eGFR > 60.00
[2023-11-26] MEDS: LASIX 40 MG IV ×2 (08:32→15:35)
[2023-11-26] MEDS: TIKOSYN 125 MCG PO ×2 (08:38→21:58)
[2023-11-26] MEDS: KCL 20 MEQ PO (08:38)
[2023-11-26] MEDS: APRESOLINE 25 MG PO ×2 (08:38→21:58)
[2023-11-26] MEDS: ZETIA 10 MG PO (08:39)
[2023-11-26] MEDS: ELIQUIS 2.5 MG PO ×2 (08:39→21:58)
--- NOTE | 2023-11-26 10:45 | W.PN.HOSP.TC ---
Today's Communication/Plan
-
Continue IV Lasix with albumin
Plan for repeat x-ray tomorrow morning
Follow-up fluid culture and cytology
Assessment / Plan
Assessment / Plan
#Recurrent exudative left pleural effusion
#Acute hypoxemic respiratory insufficiency -- (RESOLVED)
-Unclear etiology, has had multiple thoracentesis over the last year
-Only 1 set of fluid studies that show transudative effusion, no signs of malignancy
-CT C/A/P today showed stable lymphadenopathy, no new masses or signs of malignancy
-CT was done prior to thoracentesis, may not in the visualized lung clearly
-Fluid studies showed Lights criteria positive; cell counts and glucose WNL; cytology and culture pending
-Remains comfortable on low level of oxygen today with SpO2 in the mid 90s
Plan
-Plan to repeat chest x-ray tomorrow morning to assess for reaccumulation
-Follow-up pleural fluid cytology and culture
-IV Lasix with albumin as below
-Incentive spirometer, monitor respiratory status
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
#H/O Takotsubo cardiomyopathy
-Suspicion is fairly high for restrictive cardiomyopathy versus potentially constrictive disease
-Echocardiogram yesterday showed preserved EF, abnormal GLS with grade 3 diastology
-Was grossly hypervolemic on arrival with abdominal distention, leg edema, pleural fluid
-Transition to home Lasix oral to IV regimen, added albumin with Lasix for oncotic pressure
-Still remains hypervolemic today, does seem slightly improved and off of oxygen
-Warm and wet phenotype
Plan
-Continue beta-pasha for GDMT
-Continue with IV Lasix regimen with albumin, I's/O's and trend BMP
-Monitor volume status clinically, observe for improvement in exertional dyspnea
#Nonischemic myocardial injury 2/2 acute heart failure
-No chest pain or ischemic ECG findings on admission
-Troponin trend not consistent with ACS, relatively flat
#Persistent atrial fibrillation
-Home medications include dofetilide, metoprolol tartrate, Eliquis
-Has had multiple cardioversions in the past with recurrence
-Heart rate irregular though WNL on average here
#Hypertension
-No medications include metoprolol and hydralazine
-Blood pressure currently adequate
#Hyperlipidemia
-No known history of ASCVD, Home meds include statin and
#Chronic hyponatremia
-Possibly hypervolemic with her recurrent effusions
-Serum sodium baseline in the high 120s, 130 range
-Upon arrival her serum sodium was 131, has been stable
-Will monitor daily BMP while here
#Celiac's disease
-Gluten-free diet
-No signs of flare
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
-States that she had a nephrotic syndrome when she was young, following infection with measles
-States that she had a lot of fluid build up in her stomach and legs at the time consistent with nephrosis
#Sick sinus syndrome s/p PPM (October 18)
DVT prophylaxis: Eliquis
Diet: Gluten-free
CODE STATUS: Full code
Anticipated Discharge: > 48 hours
Subjective/Interval History
-
Date of Service: November 26, 2023
Seen and examined at bedside. No acute events overnight. AFVSS this morning and on room air
Has begun IV albumin infusions with Lasix for improved oncotic pressures. States she does have some exertional shortness of breath though it improved
She denies any acute complaints today including chest pain, shortness of breath, fevers or chills, nausea, vomiting, diarrhea, urinary issues, abnormal bleeding or bruising, paresthesias or weakness.
Objective Data
-
Labs:
Laboratory Results
11/26/23
05:33
WBC 6.4
Hgb 8.5 L
Hct 24.7 L
Plt Count 354
Sodium 130 L
Potassium 3.8
Chloride 97 L
Carbon Dioxide 26
BUN 26 H
Creatinine 0.9
Glucose 117 H
Calcium 8.1 L
Vital Signs:
Vital Signs
Temp Pulse Resp BP Pulse Ox
98.0 F 89 16 104/82 98
11/26/23 09:09 11/26/23 09:09 11/26/23 09:09 11/26/23 09:09 11/26/23 09:09
I&O
11/25/23 11/26/23 11/27/23
06:59 06:59 06:59
Intake Total 480 / 480 640 / 640
Output Total 850 / 1100 250 / 250
Balance 480 / 480 -210 / -460 -250 / -250
Review of Systems
-
History Source: Patient
All other systems: Reviewed and negative
Physical Exam
-
General: No Apparent Distress, Comfortable and Other (Thin, frail-appearing female)
HEENT: Normocephalic, Atraumatic, Moist Mucous Membranes and Anicteric
Respiratory: Rales (Bilateral bases) and Non Labored Respirations; Negative Wheezes, Rhonchi or Accessory Resp Muscle Use
Cardiac: S1/S2, Irregular Rhythm and JVD; Negative Murmur, Rub or Gallop
GI: Soft, Nontender, Nondistended and Normal Bowel Sounds
Musculoskeletal: No Clubbing, No Cyanosis and Other (2+ edema)
Skin: Warm and Dry; Negative Rash or Jaundice
Neuro: AO x 3, Nonfocal/Grossly Intact and Central Nerve's Intact
Psych: Calm
Data Reviewed
-
Diagnostic Radiology: Discussed with Patient
Labs: Labs Reviewed by me and Discussed with Patient
--- NOTE | 2023-11-26 11:14 | W.PN.PUL.V3 ---
Today's Communication / Plan
-
Diuresis as tolerated
Monitor for pleural fluid reaccumulation
Wean oxygen
Increase activity
Follow-up chest x-ray in couple days
Assessment
-
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
left-sided pleural effusion requiring multiple thoracenteses (last on 11/18/2023), anemia, history of lower extremity cellulitis, pulmonary nodule and vertigo who presents with SOB. She was recently hospitalized from 10/19 -10/22/2023 initially for
symptomatic bradycardia with dual-chamber permanent pacemaker implantation, with postprocedure CXR showing a large left-sided pleural effusion with thoracentesis draining 1.45 L the next day on 10/20/2023. She was discharged home on 10/21 with
instructions to repeat BMP in 1 week due to acute on chronic hyponatremia (Na on discharge 130; baseline Na 127-132). She had an outpatient thoracentesis on 11/18/2023 and felt very 'full' in her abdomen which was causing shortness of breath prior
to procedure. 1.5 L were removed on 11/17. She is now coming into the hospital again with SOB and it appeared grossly volume overloaded on exam, and she endorsed dry cough and weight loss. She has lost about 30 pounds over the last 3 years despite
her having a normal appetite. CXR on 11/24/2023 showed large left-sided pleural effusion as well as small right-sided pleural effusion. Thoracentesis done today removing 1.7 L of transudative fluid (monocyte predominant, fluid pH: 7.46 with glucose
108). Post-thoracentesis CT chest showed moderate centrilobular emphysema with small residual left pleural effusion and mild�moderate sized right pleural effusion. There were no other masses or suspicious nodules seen on the remainder for lung
parenchyma, and also dense coronary artery calcifications. Also diffuse subcutaneous edema throughout the chest, abdomen and pelvis extending into the proximal thighs. She has been admitted to the floor with cardiology consulted. Pulmonary now
consulted as well for additional recommendations/management.
Conditions present [employer]
Celiac Disease 1975
Takotsobu cardiomyopathy-recovered EF
s/p CARDIOGENIC SHOCK 04/08/05 EF 20% IMPROVED TO 50 % 04/09/[address]
Former smoker >20 pack years, quit 30 years ago
Hiatal hernia
Lyme disease
Carotid Disease
Hypertension
PANCREATITIS 2005
Irritable bowel disease
CHF
SVT/Paroxysmal atrial fibrillation s/p Cardioversion 06/18/2016
Endometrial polyps s/p D & C, polypectomy
HYPERLIPIDEMIA - MIXED
Fracture right foot/ankle in Feb 2018
Lymphocytic Colitis
Ambulatory dysfunction/Balance issues
Inguinal herniographies xs 2 02/25/2011
Vein removal in Lt. inner foot 2020
Bilateral cataract surgeries 2020
History of pancreatitis 2005
Impression:
#Recurrent left-sided pleural effusion s/p multiple thoracentesis, also chronic right-sided pleural effusion
#Acute respiratory failure with hypoxia due to above
#Anasarca
#Hypoalbuminemia
#Chronic HFpEF
#Valvular heart disease with mild�moderate MR + mild TR with mild pulmonary hypertension with PASP 36 mmHg assuming an RAP of 3 mmHg (via TTE in May 2023)
#Coronary artery arteriosclerosis seen on CT chest
Plan:
Respiratory status improved after thoracentesis
Supplemental oxygen
Aspiration precautions
Incentive spirometry
Follow chest [id number] for reaccumulation of fluid
Thoracentesis--1.7 L-transudate 08/25/2023
- She does have multiple risk factors for volume overload including hypoalbuminemia and diastolic heart failure with valvular heart disease (MR)
- Her proBNP checked on 11/24/2023 was 3930 which is the highest that she has ever been since May 2022
- Repeat TTE as last one done in July 2023 ([facility]) --> echo today shows stage III diastolic dysfunction with normal LV size with no regional WMA and EF 55 to 60%, also normal RV with dilated right atrium and moderate TR with moderate pulmonary
hypertension with PASP 45-50 mmHg
- Cardiology consulted with recs appreciated
- Continue aggressive IV diuresis with albumin to help improve diuresis by raising oncotic pressure
- Replete electrolytes with K>4, Mg>2 while being aggressively diuresed
- Maintain net negative fluid balance as tolerated
- Check for albuminuria/proteinuria with spot microalbumin/Cr ratio
Follow up pleural fluid Cx and cytopathology from today (11/25/2023)
Briefly discussed Pleurx catheter if recurrent pleural effusion keeps reoccurring
Observe off antibiotics
Echocardiogram reviewed-EF 55-60%, aortic sclerosis, PA systolic 45
Continue tikosyn, hydralazine and toprol-XL
Monitor blood sugar
Insulin supplementation as needed
DVT prophylaxis-on Eliquis
Nutrition
Early mobilization/PT/OT
She has an appointment on 12/14/[address] Castellanos.
Data:
Post-thoracentesis CT chest, abdomen, pelvis with IV contrast 11/25/2023:
Small left pleural effusion. Small to moderate right pleural effusion.
Atelectasis within the lower lungs.
Moderate changes of emphysema within the upper to mid lungs.
Small pericardial effusion.
Dense coronary artery calcifications. Please correlate with symptoms of and risk factors for coronary artery disease, with further workup as clinically appropriate.
Slightly enlarged lymph nodes in the periaortic and interaortocaval region, similar to previous examination of May 19, 2023. These are nonspecific and could be reactive inflammatory lymph nodes, but could also be neoplastic. Stability would favor
reactive inflammatory nodes.
Diffuse subcutaneous edema. Small to moderate amount of free fluid within the pelvic cul-de-sac.
Degenerative changes as described. No CT evidence for bony metastatic disease.
TTE 11/25/2023:
1. Normal left ventricular size with mild LVH, no regional wall motion
abnormality, EF 55-60% but with global longitudinal strain of -14.2%. Stage
III diastolic dysfunction.
2. Thickened mitral leaflets, mitral annular calcification, mild mitral
regurgitation and dilated left atrium
3. Aortic sclerosis without stenosis or significant aortic regurgitation
4. Normal right ventricle, pacing wire seen, dilated right atrium, moderate
tricuspid regurgitation and pulmonary artery systolic pressure 45-50 mmHg
Study is similar to May 2023. Right atrial pressure was 36 mmHg at that
time.
Total time spent today was 75 minutes for this encounter. Time includes reviewing laboratory test/imaging results, reviewing pertinent medical records, obtaining and reviewing medical history, performing an appropriate exam, ordering medications,
tests and procedures. Time also includes documentation of this encounter, coordinating patient care and communicating with other healthcare professionals. Total time does not include separately billed tests performed on this date of service.
Subjective Data
-
Date of Service:
Date of Service: November 26, 2023
Chief Complaint: Pulmonary Follow Up and Dyspnea Follow Up
Subjective:
Feels better after thoracentesis, no complaints of chest pain, chest congestion, productive cough or abdominal pain
Review of Systems
General: Other (Per HPI)
Objective Data
Data Reviewed
Vital Signs / I&O:
Vital Signs
Temp Pulse Resp BP Pulse Ox
98.0 F 89 16 104/82 98
11/26/23 09:09 11/26/23 09:09 11/26/23 09:09 11/26/23 09:09 11/26/23 09:09
Intake and Output
11/25/23 11/26/23 11/27/23
06:59 06:59 06:59
Intake Total 480 / 480 640 / 640
Output Total 850 / 1100 250 / 250
Balance 480 / 480 -210 / -460 -250 / -250
SaO2: 98
Nasal Cannula flow liters per minute: 2
Physical Exam
General: Respiratory Distress (n) and Comfortable
HEENT: Normocephalic, Anicteric and Moist Mucous Membranes
Cardiovascular: Regular Rhythm
Respiratory: Wheeze (n), Crackles (Left basilar), Rhonchi (n), Non-Labored Respirations, Accessory Resp Muscle Use (n) and Stridor (n)
GI: Soft, Non Distended and Non Tender
Neurology: Awake and No Motor Deficits
Skin: Warm, Good Color, Cyanosis (n), Jaundice (n) and Rash (n)
Labs/Micro/Reports
Lab Data
11/26/23 05:33
11/26/23 05:33
Microbiology
11/25/23 08:22 Pleural Fluid Body Fluid Culture - Preliminary
No Growth After 18-24 Hours
11/25/23 08:22 Pleural Fluid Gram Stain - Preliminary
--- NOTE | 2023-11-26 14:09 | W.PN.CARDCBS ---
Today's Communication / Plan
-
Screen for monoclonal protein, ALEKS, free light chains
Continue IV furosemide
Consider spironolactone
Impression / Plan
-
PCP: Stella Sutherland PA-C
Carpenter Helper: Dr. Kiera Diaz
Impression:
Presented with SOB
Acute on chronic HFpEF
Recurrent left-sided pleural effusion
s/p thoracentesis 05/18/2023 w/ 750 cc removed
s/p thoracentesis 09/27/2023 w/ 1500 cc removed
s/p thoracentesis 10/20/2023 w/ 1450 cc removed
s/p thoracentesis 11/18/2023 w/ 1500 cc removed
s/p thoracentesis 11/25/2023 w/ 1700 cc removed
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
Hyponatremia
Elevated troponin, suspect nonischemic myocardial injury
Persistent atrial fibrillation
Prior PVI (2016)
s/p PFA 08/24/23
Maintained on Tikosyn
Chronic anticoagulation on Eliquis
Takotsubo CM w/recovered EF (2005)
HLD
HTN
MR
Renal nephrosis
Vertigo Edema
Lung Nodule (2021, stable)
Anemia
Hyponatremia
LE cellulitis (05/14/23)
Echo 05/18/2023: EF 69%, stage II diastolic dysfunction. Moderately dilated right atrium. Mild to moderate MR. Mild TR. PAP 36 mmHg. Small pericardial effusion
Echo 11/25/2023: Study completed, report pending
Plan:
She is largely unchanged. Receiving albumin as well as IV Lasix.
She is for follow-up chest x-ray in a.m.
She had a pyrophosphate scan looking for ATTR cardiomyopathy and scan was negative. However she had never had screening for free light chains or immunofluorescence, looking for monoclonal protein as a potential cause of cardiac amyloidosis. I have
ordered the studies for tomorrow.
Continue furosemide.
Her follow-up echo shows a reduced global longitudinal strain but not the typical pattern seen with ATTR cardiomyopathy.
We could consider spironolactone, will discuss with Dr. Qureshi.
We have yet to come up with a definitive explanation for her recurrent and refractory heart failure with preserved EF
Previously she had been on Farxiga but developed UTIs.
HPI: Gabriela is an 78 year old female with PMH of symptomatic bradycardia s/p PPM, chronic HFpEF, persistent atrial fibrillation, takotsubo CM, recurrent L pleural effusion, HTN, HLD, MR, and chronic anemia. She presented to [facility] for evaluation
of worsening SOB. She has had multiple recent left sided thoracenteses, most recently 11/17. She noticed increased SOB in AM 11/23 as well as a cough. She called the cardiology office and was recommended to come to ER for evaluation. In ER, she was
found to have recurrent L pleural effusion as well as evidence of acute heart failure with proBNP 3930. She was admitted and started on IV lasix. This AM, she had another thoracentesis with 1700 cc removed. Fluid studies pending. Cardiology
consulted for evaluation given acute heart failure exacerbation. She reports feeling improved following thoracentesis.
Progress Note - Carpenter Helper
Subjective
Date of Service: November 26, 2023:
Current meds: Aspirin 81 mg a day, Dofetilide 125 mg every 12, apixaban 2.5 mg twice daily, Hydralazine 25 mg twice daily, Atorvastatin 10 mg Tuesday and Tuesday, Metoprolol ER 12.5 mg at bedtime, Potassium 20 meq daily,Ezetimibe 10 mg daily
Furosemide 40 IV twice daily
117/71, pulse 113, resp rate 16, sats 98%, weight is 60.4 kg, unchanged, she is frail, diminished breath sounds in bases, neck veins not markedly elevated, soft systolic murmur, abdomen benign extremities without much edema
Hemoglobin is 8.5, had been 9.2 October 20, sodium is 130, BUN and creatinine are 26 and 0.9
Objective
Labs:
11/26/23 05:33
11/26/23 05:33
Labs
Hgb 8.5 g/dL (12.0-16.0) L 11/26/23 05:33
Hct 24.7 % (37.0-47.0) L 11/26/23 05:33
Plt Count 354 10^3/uL (130-400) 11/26/23 05:33
Sodium 130 mmol/L (135-145) L 11/26/23 05:33
Potassium 3.8 mmol/L (3.5-5.1) 11/26/23 05:33
BUN 26 mg/dl (7-17) H 11/26/23 05:33
Creatinine 0.9 mg/dL (0.6-1.0) 11/26/23 05:33
Glucose 117 mg/dl (70-99) H 11/26/23 05:33
Troponins
11/24/23 11/24/23 11/24/23
15:43 16:15 22:06
Troponin I Cancelled 0.047 H* 0.045 H*
11/25/23
04:15
Troponin I 0.041 H*
Vital Signs and I&O:
Vital Signs
Temp Pulse Resp BP Pulse Ox
36.8 C 113 16 117/71 98
11/26/23 11:10 11/26/23 11:10 11/26/23 11:10 11/26/23 11:10 11/26/23 11:18
Vital Signs
Temp Pulse Resp BP Pulse Ox
36.8 C 113 16 117/71 98
11/26/23 11:10 11/26/23 11:10 11/26/23 11:10 11/26/23 11:10 11/26/23 11:18
Intake & Output
11/24/23 11/25/23 11/26/23 11/27/23
07:59 07:59 07:59 07:59
Intake Total 480 / 480 640 / 640
Output Total 1100 / 1100
Balance 480 / 480 -460 / -460
Physical Exam
Physical Exam
See above
[2023-11-26] MEDS: TOPROL XL 12.5 MG PO (21:58)
[2023-11-27] VITALS (7 sets, daily range): BP systolic 115–141; BP diastolic 66–83; PULSE 108–123; O2SAT 98; BMI 21.2
--- NOTE | 2023-11-27 07:18 | W.PN.PUL.V3 ---
Today's Communication / Plan
-
Diuresis as tolerated
Cytology pending-was negative in September
Follow radiographically-discussed asept or Pleurx catheter with her
Consider interventional radiology consultation Tuesday
Assessment
-
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
left-sided pleural effusion requiring multiple thoracenteses (last on 11/18/2023), anemia, history of lower extremity cellulitis, pulmonary nodule and vertigo who presents with SOB. She was recently hospitalized from 10/19 -10/22/2023 initially for
symptomatic bradycardia with dual-chamber permanent pacemaker implantation, with postprocedure CXR showing a large left-sided pleural effusion with thoracentesis draining 1.45 L the next day on 10/20/2023. She was discharged home on 10/21 with
instructions to repeat BMP in 1 week due to acute on chronic hyponatremia (Na on discharge 130; baseline Na 127-132). She had an outpatient thoracentesis on 11/18/2023 and felt very 'full' in her abdomen which was causing shortness of breath prior
to procedure. 1.5 L were removed on 11/17. She is now coming into the hospital again with SOB and it appeared grossly volume overloaded on exam, and she endorsed dry cough and weight loss. She has lost about 30 pounds over the last 3 years despite
her having a normal appetite. CXR on 11/24/2023 showed large left-sided pleural effusion as well as small right-sided pleural effusion. Thoracentesis done today removing 1.7 L of transudative fluid (monocyte predominant, fluid pH: 7.46 with glucose
108). Post-thoracentesis CT chest showed moderate centrilobular emphysema with small residual left pleural effusion and mild�moderate sized right pleural effusion. There were no other masses or suspicious nodules seen on the remainder for lung
parenchyma, and also dense coronary artery calcifications. Also diffuse subcutaneous edema throughout the chest, abdomen and pelvis extending into the proximal thighs. She has been admitted to the floor with cardiology consulted. Pulmonary now
consulted as well for additional recommendations/management.
Conditions present [employer]
Celiac Disease 1975
Takotsobu cardiomyopathy-recovered EF
s/p CARDIOGENIC SHOCK 04/08/05 EF 20% IMPROVED TO 50 % 04/09/[address]
Former smoker >20 pack years, quit 30 years ago
Hiatal hernia
Lyme disease
Carotid Disease
Hypertension
PANCREATITIS 2005
Irritable bowel disease
CHF
SVT/Paroxysmal atrial fibrillation s/p Cardioversion 06/18/2016
Endometrial polyps s/p D & C, polypectomy
HYPERLIPIDEMIA - MIXED
Fracture right foot/ankle in Feb 2018
Lymphocytic Colitis
Ambulatory dysfunction/Balance issues
Inguinal herniographies xs 2 02/25/2011
Vein removal in Lt. inner foot 2020
Bilateral cataract surgeries 2020
History of pancreatitis 2005
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
Impression:
#Recurrent left-sided pleural effusion s/p multiple thoracentesis, also chronic right-sided pleural effusion
#Acute respiratory failure with hypoxia due to above
#Anasarca
#Hypoalbuminemia
#Chronic HFpEF
#Valvular heart disease with mild�moderate MR + mild TR with mild pulmonary hypertension with PASP 36 mmHg assuming an RAP of 3 mmHg (via TTE in May 2023)
#Coronary artery arteriosclerosis seen on CT chest
Plan:
Respiratory status improved after thoracentesis-pleural fluid slowly reaccumulating
Supplemental oxygen
Aspiration precautions
Incentive spirometry
Chest x-ray 11/27/2023-moderate left pleural effusion increased from prior, small right pleural effusion
Thoracentesis--1.7 L-transudate 08/25/2023
- She does have multiple risk factors for volume overload including hypoalbuminemia and diastolic heart failure with valvular heart disease (MR)
- Her proBNP checked on 11/24/2023 was 3930 which is the highest that she has ever been since May 2022
- Repeat TTE as last one done in July 2023 ([facility]) --> echo today shows stage III diastolic dysfunction with normal LV size with no regional WMA and EF 55 to 60%, also normal RV with dilated right atrium and moderate TR with moderate pulmonary
hypertension with PASP 45-50 mmHg
- Cardiology consulted with recs appreciated
- Continue aggressive IV diuresis with albumin to help improve diuresis by raising oncotic pressure
- Replete electrolytes with K>4, Mg>2 while being aggressively diuresed
- Maintain net negative fluid balance as tolerated
- Check for albuminuria/proteinuria with spot microalbumin/Cr ratio
Pleural fluid cultures negative
Pleural fluid cytology 09/27/2023-negative
Pleural fluid cytology 11/25/2023-pending
Again discussed Pleurx catheter if recurrent pleural effusion keeps reoccurring
Consider contacting interventional radiology and beginning the process as it does appear she has fairly rapid reaccumulation of pleural fluid
Observe off antibiotics
Echocardiogram reviewed-EF 55-60%, aortic sclerosis, PA systolic 45
Continue tikosyn, hydralazine and toprol-XL
Continue diuresis with albumin
Monitor blood sugar
Insulin supplementation as needed
DVT prophylaxis-on Eliquis
Nutrition
Early mobilization/PT/OT
She has an appointment on 12/14/[address] Castellanos.
Data:
Post-thoracentesis CT chest, abdomen, pelvis with IV contrast 11/25/2023:
Small left pleural effusion. Small to moderate right pleural effusion.
Atelectasis within the lower lungs.
Moderate changes of emphysema within the upper to mid lungs.
Small pericardial effusion.
Dense coronary artery calcifications. Please correlate with symptoms of and risk factors for coronary artery disease, with further workup as clinically appropriate.
Slightly enlarged lymph nodes in the periaortic and interaortocaval region, similar to previous examination of May 19, 2023. These are nonspecific and could be reactive inflammatory lymph nodes, but could also be neoplastic. Stability would favor
reactive inflammatory nodes.
Diffuse subcutaneous edema. Small to moderate amount of free fluid within the pelvic cul-de-sac.
Degenerative changes as described. No CT evidence for bony metastatic disease.
TTE 11/25/2023:
1. Normal left ventricular size with mild LVH, no regional wall motion
abnormality, EF 55-60% but with global longitudinal strain of -14.2%. Stage
III diastolic dysfunction.
2. Thickened mitral leaflets, mitral annular calcification, mild mitral
regurgitation and dilated left atrium
3. Aortic sclerosis without stenosis or significant aortic regurgitation
4. Normal right ventricle, pacing wire seen, dilated right atrium, moderate
tricuspid regurgitation and pulmonary artery systolic pressure 45-50 mmHg
Study is similar to May 2023. Right atrial pressure was 36 mmHg at that
time.
Total time spent today was 75 minutes for this encounter. Time includes reviewing laboratory test/imaging results, reviewing pertinent medical records, obtaining and reviewing medical history, performing an appropriate exam, ordering medications,
tests and procedures. Time also includes documentation of this encounter, coordinating patient care and communicating with other healthcare professionals. Total time does not include separately billed tests performed on this date of service.
Subjective Data
-
Date of Service:
Date of Service: November 27, 2023
Chief Complaint: Pulmonary Follow Up and Dyspnea Follow Up
Subjective:
Feels a little better, feels like albumin is helping her, no chest pain or abdominal pain, no increased shortness of breath
Review of Systems
General: Other (Per HPI)
Objective Data
Data Reviewed
Vital Signs / I&O:
Vital Signs
Temp Pulse Resp BP Pulse Ox
98.0 F 81 16 129/70 96
11/27/23 03:42 11/27/23 03:42 11/27/23 03:42 11/27/23 03:42 11/27/23 03:42
Intake and Output
11/26/23 11/27/23 11/28/23
06:59 06:59 06:59
Intake Total 640 / 640 960 / 960
Output Total 850 / 1100 2880 / 2880
Balance -210 / -460 -1920 / -1920
SaO2: 96
Nasal Cannula flow liters per minute: 2
Physical Exam
General: Respiratory Distress (n) and Comfortable
HEENT: Normocephalic, Anicteric and Moist Mucous Membranes
Cardiovascular: Regular Rhythm
Respiratory: Clear (Decreased breath sounds left base), Wheeze (n), Crackles (Left basilar), Rhonchi (n), Non-Labored Respirations, Accessory Resp Muscle Use (n) and Stridor (n)
GI: Soft, Non Distended and Non Tender
Neurology: Awake and No Motor Deficits
Skin: Warm, Good Color, Cyanosis (n), Jaundice (n) and Rash (n)
Labs/Micro/Reports
Lab Data
11/26/23 05:33
Microbiology
11/25/23 08:22 Pleural Fluid Body Fluid Culture - Preliminary
No Growth After 18-24 Hours
11/25/23 08:22 Pleural Fluid Gram Stain - Preliminary
[2023-11-27 09:18] LABS: Carbon Dioxide 27 mmol/L (22-30); Chloride 94 mmol/L (98-107); Estimated Creatinine Clearance 42 ml/min; Potassium 3.9 mmol/L (3.5-5.1); Sodium 131 mmol/L (135-145); eGFR 56.95
[2023-11-27] MEDS: LASIX 40 MG IV ×2 (09:29→15:52)
[2023-11-27] MEDS: APRESOLINE 25 MG PO ×2 (09:30→20:17)
[2023-11-27] MEDS: ZETIA 10 MG PO (09:30)
[2023-11-27] MEDS: KCL 20 MEQ PO (09:30)
[2023-11-27] MEDS: TIKOSYN 125 MCG PO ×2 (09:31→20:17)
[2023-11-27] MEDS: ELIQUIS 2.5 MG PO ×2 (09:31→20:17)
[2023-11-27 10:23] LABS: Blood Urea Nitrogen 25 mg/dl (7-17); Calcium 8.6 mg/dl (8.4-10.2); Glucose 198 mg/dl (70-99)
--- NOTE | 2023-11-27 10:54 | W.PN.HOSP.TC ---
Today's Communication/Plan
-
Follow-up repeat x-ray
Continue with Lasix plus albumin
Follow-up amyloid serology and pleural fluid cytology
Assessment / Plan
Assessment / Plan
#Recurrent exudative left pleural effusion
#Acute hypoxemic respiratory insufficiency -- (RESOLVED)
-Unclear etiology, has had multiple thoracentesis over the last year
-Only 1 set of fluid studies that show transudative effusion, no signs of malignancy
-CT C/A/P today showed stable lymphadenopathy, no new masses or signs of malignancy
-Fluid studies showed Lights criteria positive; cell counts and glucose WNL; culture negative
-Remains on room air comfortably
Plan
-Follow-up chest x-ray this morning
-Follow-up pleural fluid cytology
-IV Lasix with albumin as below
-Incentive spirometer, monitor respiratory status
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
#H/O Takotsubo cardiomyopathy
-Suspicion is fairly high for restrictive cardiomyopathy versus potentially constrictive disease
-Echocardiogram yesterday showed preserved EF, abnormal GLS with grade 3 diastology
-Was grossly hypervolemic on arrival with abdominal distention, leg edema, pleural fluid
-Transition to home Lasix oral to IV regimen, added albumin with Lasix for oncotic pressure
-Still remains hypervolemic today, does seem slightly improved and off of oxygen
-Cardiology sent amyloid workup yesterday, results pending
-Warm and wet phenotype
Plan
-Continue beta-pasha for GDMT
-Continue with IV Lasix regimen with albumin, I's/O's and trend BMP
-Follow-up SPEP/UPEP + ALEKS, light chains; consider repeat technetium scan if already performed
-Monitor volume status clinically, observe for improvement in exertional dyspnea
#Nonischemic myocardial injury 2/2 acute heart failure
-No chest pain or ischemic ECG findings on admission
-Troponin trend not consistent with ACS, relatively flat
#Persistent atrial fibrillation
-Home medications include dofetilide, metoprolol tartrate, Eliquis
-Has had multiple cardioversions in the past with recurrence
-Heart rate irregular though WNL on average here
#Hypertension
-No medications include metoprolol and hydralazine
-Blood pressure currently adequate
#Hyperlipidemia
-No known history of ASCVD, Home meds include statin and
#Chronic hyponatremia
-Possibly hypervolemic with her recurrent effusions
-Serum sodium baseline in the high 120s, 130 range
-Upon arrival her serum sodium was 131, has been stable
-Will monitor daily BMP while here
#Celiac's disease
-Gluten-free diet
-No signs of flare
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
-States that she had a nephrotic syndrome when she was young, following infection with measles
-States that she had a lot of fluid build up in her stomach and legs at the time consistent with nephrosis
#Sick sinus syndrome s/p PPM (October 18)
DVT prophylaxis: Eliquis
Diet: Gluten-free
CODE STATUS: Full code
Anticipated Discharge: 24 - 48 hours
Subjective/Interval History
-
Date of Service: November 27, 2023
Seen and examined at bedside. No acute events overnight. AFVSS this morning on room air.
She states she feels well, has some mild exertional dyspnea though improved from admission. A.m. x-ray pending.
She denies other acute complaints including chest pain, resting dyspnea, fevers or chills, lightheadedness, paresthesias or weakness, GI complaints, urinary issues, headache.
Objective Data
-
Labs:
Laboratory Results
11/27/23
08:09
Sodium 131 L
Potassium 3.9
Chloride 94 L
Carbon Dioxide 27
BUN 25 H
Creatinine 1.0
Glucose 198 H
Calcium 8.6
Vital Signs:
Vital Signs
Temp Pulse Resp BP Pulse Ox
97.6 F 110 16 128/83 99
11/27/23 07:20 11/27/23 07:20 11/27/23 07:20 11/27/23 07:20 11/27/23 07:20
I&O
11/26/23 11/27/23 11/28/23
06:59 06:59 06:59
Intake Total 640 / 640 960 / 960
Output Total 850 / 1100 2880 / 2880
Balance -210 / -460 -1920 / -1920
Review of Systems
-
History Source: Patient
All other systems: Reviewed and negative
Physical Exam
-
General: No Apparent Distress, Comfortable and Other (Thin and frail appearing); Negative Respiratory Distress
HEENT: Normocephalic, Atraumatic, Moist Mucous Membranes and Anicteric
Respiratory: Clear to Auscultation (Upper lung pope), Non Labored Respirations and Decreased Breath Sounds (Left lung base); Negative Wheezes, Rales, Rhonchi or Accessory Resp Muscle Use
Cardiac: S1/S2, Irregular Rhythm and Murmur; Negative Rub, JVD or Gallop
GI: Soft, Nontender, Normal Bowel Sounds and Distended (Mildly, improving)
Musculoskeletal: No Clubbing, No Cyanosis and Other (1+ bilateral leg edema)
Skin: Warm, Dry and Normal Turgor; Negative Rash or Jaundice
Neuro: AO x 3, Nonfocal/Grossly Intact and Central Nerve's Intact
Psych: Calm
Data Reviewed
-
Diagnostic Radiology: Discussed with Patient
Labs: Labs Reviewed by me and Discussed with Patient
--- NOTE | 2023-11-27 11:12 | W.PN.CARDCBS ---
Today's Communication / Plan
-
Continue IV Lasix
Add spironolactone
Pleurx catheter?
Need to interrogate pacemaker tomorrow
Impression / Plan
-
PCP: Stella Sutherland PA-C
Ob Gyn: Dr. Kiera Diaz
Impression:
Presented with SOB
Acute on chronic HFpEF
Recurrent left-sided pleural effusion
s/p thoracentesis 05/18/2023 w/ 750 cc removed
s/p thoracentesis 09/27/2023 w/ 1500 cc removed
s/p thoracentesis 10/20/2023 w/ 1450 cc removed
s/p thoracentesis 11/18/2023 w/ 1500 cc removed
s/p thoracentesis 11/25/2023 w/ 1700 cc removed
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
Hyponatremia
Elevated troponin, suspect nonischemic myocardial injury
Persistent atrial fibrillation
Prior PVI (2016)
s/p PFA 08/24/23
Maintained on Tikosyn
Chronic anticoagulation on Eliquis
Takotsubo CM w/recovered EF (2005)
HLD
HTN
MR
Renal nephrosis
Vertigo Edema
Lung Nodule (2021, stable)
Anemia
Hyponatremia
LE cellulitis (05/14/23)
Echo 05/18/2023: EF 69%, stage II diastolic dysfunction. Moderately dilated right atrium. Mild to moderate MR. Mild TR. PAP 36 mmHg. Small pericardial effusion
Echo 11/25/2023: EF 55-60%, global longitudinal strain is -14.2, stage III diastolic dysfunction, mild MR, dilated left atrium, aortic sclerosis, normal RV, pulmonary artery systolic pressure 45-50 mmHg
Plan:
Her weight is down, and breathing may be slightly better, but by chest x-ray she has a substantial left pleural effusion. She may need a Pleurx catheter, will await input from pulmonary.
Add spironolactone for now, will defer to Dr. Qureshi whether this should be continued long-term.
Not certain if right heart catheterization might offer insight as to her filling pressures which are presumably high. Uncertain if cardiac MRI looking for late gadolinium enhancement would be of value.
Await study for paraproteins. Pyrophosphate scan was negative.
No SGLT2 antagonist given history of UTIs.
She is relatively tachycardic with frequent atrial arrhythmia. Slower atrial mechanism would be beneficial in terms of hemodynamic but I am not sure how we could achieve that. She is not a candidate for amiodarone and probably cannot uptitrate
dofetilide. Beta and calcium blockers unlikely to have a substantial impact. At this time AV nemesio ablation with DDIR pacing seems excessively aggressive.
We will need to interrogate her pacemaker tomorrow.
Her global longitudinal strain is reduced, I do not think we have adequately explained the etiology of her heart failure to date.
HPI: Gabriela is an 78 year old female with PMH of symptomatic bradycardia s/p PPM, chronic HFpEF, persistent atrial fibrillation, takotsubo CM, recurrent L pleural effusion, HTN, HLD, MR, and chronic anemia. She presented to [facility] for evaluation
of worsening SOB. She has had multiple recent left sided thoracenteses, most recently 11/17. She noticed increased SOB in AM 11/23 as well as a cough. She called the cardiology office and was recommended to come to ER for evaluation. In ER, she was
found to have recurrent L pleural effusion as well as evidence of acute heart failure with proBNP 3930. She was admitted and started on IV lasix. This AM, she had another thoracentesis with 1700 cc removed. Fluid studies pending. Cardiology
consulted for evaluation given acute heart failure exacerbation. She reports feeling improved following thoracentesis.
Progress Note - Ob Gyn
Subjective
Date of Service: November 27, 2023:
Current medications: Dofetilide 125 mcg every 12 hours, apixaban 2.5 mg twice daily, hydralazine 25 mg every 12, atorvastatin 10 mg 3 days a week, metoprolol ER 12.5 nightly, potassium 20 mill COVID's daily, ezetimibe 10 mg daily, furosemide 40 IV
twice daily, albumin after Lasix
128/83, pulse 110, respirate 16, afebrile, weight is 58 point 58.6 kg, down 1.8 kg,
Chest x-ray still with at least moderate pleural effusion
Sodium is 131, BUN and creatinine are 25 and 1.0, potassium is 3.9
Objective
Labs:
11/26/23 05:33
11/27/23 08:09
Labs
Hgb 8.5 g/dL (12.0-16.0) L 11/26/23 05:33
Hct 24.7 % (37.0-47.0) L 11/26/23 05:33
Plt Count 354 10^3/uL (130-400) 11/26/23 05:33
Sodium 131 mmol/L (135-145) L 11/27/23 08:09
Potassium 3.9 mmol/L (3.5-5.1) 11/27/23 08:09
BUN 25 mg/dl (7-17) H 11/27/23 08:09
Creatinine 1.0 mg/dL (0.6-1.0) 11/27/23 08:09
Glucose 198 mg/dl (70-99) H 11/27/23 08:09
Troponins
11/24/23 11/24/23 11/24/23
15:43 16:15 22:06
Troponin I Cancelled 0.047 H* 0.045 H*
11/25/23
04:15
Troponin I 0.041 H*
Vital Signs and I&O:
Vital Signs
Temp Pulse Resp BP Pulse Ox
36.4 C 110 16 128/83 99
11/27/23 07:20 11/27/23 07:20 11/27/23 07:20 11/27/23 07:20 11/27/23 07:20
Vital Signs
Temp Pulse Resp BP Pulse Ox
36.4 C 110 16 128/83 99
11/27/23 07:20 11/27/23 07:20 11/27/23 07:20 11/27/23 07:20 11/27/23 07:20
Intake & Output
11/25/23 11/26/23 11/27/23 11/28/23
07:59 07:59 07:59 07:59
Intake Total 480 / 480 640 / 640 960 / 960
Output Total 1100 / 1100 2630 / 2630
Balance 480 / 480 -460 / -460 -1670 / -1670
Physical Exam
Physical Exam
No acute distress, appears fragile, diminished breath sounds much greater on left than right, irregular rate and rhythm, JVD not markedly elevated, soft systolic murmur, abdomen benign, 1+ edema
[2023-11-27] MEDS: ALDACTONE 12.5 MG PO (12:19)
--- NOTE | 2023-11-27 14:34 | CM ---
Patient seen at bedside with son. Patient stated that she was interested in having [facility] if appropriate at discharge. Patient stated that she understands the doctor will talk tomorrow and make a plan for next steps. CM will continue to follow for
discharge planning needs.
Plan; home with VN; [facility] if appropriate.
[2023-11-27] MEDS: FLEXBUMIN 100 IV (15:53)
[2023-11-27] MEDS: TOPROL XL 12.5 MG PO (22:28)
[2023-11-28] VITALS (7 sets, daily range): BP systolic 102–135; BP diastolic 53–89; PULSE 111; O2SAT 98; BMI 21.4
[2023-11-28] MEDS: APRESOLINE 25 MG PO ×2 (07:59→20:12)
[2023-11-28] MEDS: TIKOSYN 125 MCG PO ×2 (07:59→20:11)
[2023-11-28] MEDS: KCL 20 MEQ PO (07:59)
[2023-11-28] MEDS: ELIQUIS 2.5 MG PO ×2 (07:59→20:11)
[2023-11-28] MEDS: ALDACTONE 12.5 MG PO (07:59)
[2023-11-28] MEDS: LASIX 40 MG IV (08:00)
[2023-11-28] MEDS: ZETIA 10 MG PO (08:00)
[2023-11-28] MEDS: FLEXBUMIN 100 IV (08:06)
[2023-11-28] MEDS: LIPITOR 10 MG PO (08:06)
--- NOTE | 2023-11-28 08:51 | W.PN.CARDCBS ---
Addendum entered and electronically signed by Mikhail Clemente DO 11/28/23 12:02:
I saw and examined the patient.
The Health And Physical Education Professor's note was reviewed and I agree with the note.
Comment:
Plan:
Complex case. She has had recurrent AFib despite Tikosyn with history of PVI 2016 and s/p PFA August 2023.
Dr Artemio Diaz noted potential recurrent AT/AF due to marked electrical fractionation of the LA and RA. Tikosyn started in August 2023.
Interrogate device for burden of recurrent aFib. Recurrent AFib likely a component of her recurrent HF.
Echo EF 55-60% with stage III diastolic dysfunction, mild MR and PASP 45-50 mmHg.
Repeat amyloid studies pending. As per office note September 2023 Prior findings of blood work from August 2023 were not consistent with AL amyloid (while the free kappa light chain and free lambda light chains elevated, the free kappa/lambda ratio is
normal at 1.25)
Amyloid scan was negative for ATTR amyloid with semi-quantitative visual score of Oct. Could potentially consider outpt cardiac MR pending clinical course.
For now, increase lasix dosing to 60 mg BID IV and monitor wts and Is and Os.
Consider abd u/s to eval for ascites
Monitor chest xray for mod left pleural effusion, may require repeat thoracentesis, pt is s/p thoracentesis 11/24 with 1700 cc removed.
Check EKG
Original Note:
Today's Communication / Plan
-
Await amyloid studies
Increase lasix to 60mg BID.
Check EKG
Check device
Impression / Plan
-
PCP: Stella Sutherland PA-C
Evidence Custodian: Dr. Kiera Diaz
Impression:
Presented with SOB
Acute on chronic HFpEF
Recurrent left-sided pleural effusion
s/p thoracentesis 05/18/2023 w/ 750 cc removed
s/p thoracentesis 09/27/2023 w/ 1500 cc removed
s/p thoracentesis 10/20/2023 w/ 1450 cc removed
s/p thoracentesis 11/18/2023 w/ 1500 cc removed
s/p thoracentesis 11/25/2023 w/ 1700 cc removed
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
Hyponatremia
Elevated troponin, suspect nonischemic myocardial injury
Persistent atrial fibrillation
Prior PVI (2016)
s/p PFA 08/24/23
Maintained on Tikosyn
Chronic anticoagulation on Eliquis
Takotsubo CM w/recovered EF (2005)
HLD
HTN
MR
Renal nephrosis
Vertigo Edema
Lung Nodule (2021, stable)
Anemia
Hyponatremia
LE cellulitis (05/14/23)
Echo 05/18/2023: EF 69%, stage II diastolic dysfunction. Moderately dilated right atrium. Mild to moderate MR. Mild TR. PAP 36 mmHg. Small pericardial effusion
Echo 11/25/2023: EF 55-60%, global longitudinal strain is -14.2, stage III diastolic dysfunction, mild MR, dilated left atrium, aortic sclerosis, normal RV, pulmonary artery systolic pressure 45-50 mmHg
Plan:
-Presented with SOB. Found to have recurrent L pleural effusion and acute heart failure.
-Diuresing with IV lasix 40mg BID. Weight has been flat around 132 - 133lbs this admission despite thoracentesis and diuresis. Previously dry weight was 122lbs 10/2023
-Will increase lasix to 60mg BID. Creat stable at 1.0.
-Consider abdominal US. Still w/ distension and bloating.
-Lg L pleural effusion noted on initial chest xray 11/23. s/p thoracentesis 11/24 with 1700 cc removed. Repeat CXR 11/26 w/ reaccumulation of effusion, now moderate. Consider repeat thoracentesis/chest US.
-Echo 11/24 with preserved EF. GLS is mildly reduced. New to spironolactone this admission. Continue Toprol. No SGLT2 inhibitor due to h/o UTI.
-HR stable overall, but still w/ intermittent runs of tachycardia. Will check device. Continue Tikosyn.
-Previously had pyrophosphate scan which was negative for amyloid. Amyloid blood tests drawn 11/26. Await results. May consider OP cardiac MRI.
-Discussion of Pleurx per pulmonology.
HPI: Gabriela is an 78 year old female with PMH of symptomatic bradycardia s/p PPM, chronic HFpEF, persistent atrial fibrillation, takotsubo CM, recurrent L pleural effusion, HTN, HLD, MR, and chronic anemia. She presented to [facility] for evaluation
of worsening SOB. She has had multiple recent left sided thoracenteses, most recently 11/17. She noticed increased SOB in AM 11/23 as well as a cough. She called the cardiology office and was recommended to come to ER for evaluation. In ER, she was
found to have recurrent L pleural effusion as well as evidence of acute heart failure with proBNP 3930. She was admitted and started on IV lasix. This AM, she had another thoracentesis with 1700 cc removed. Fluid studies pending. Cardiology
consulted for evaluation given acute heart failure exacerbation. She reports feeling improved following thoracentesis.
Progress Note - Evidence Custodian
Subjective
Date of Service: November 28, 2023
Still w/ some fatigue and SOB.
Objective
Labs:
Labs
Hgb 8.5 g/dL (12.0-16.0) L 11/26/23 05:33
Hct 24.7 % (37.0-47.0) L 11/26/23 05:33
Plt Count 354 10^3/uL (130-400) 11/26/23 05:33
Sodium 131 mmol/L (135-145) L 11/27/23 08:09
Potassium 3.9 mmol/L (3.5-5.1) 11/27/23 08:09
BUN 25 mg/dl (7-17) H 11/27/23 08:09
Creatinine 1.0 mg/dL (0.6-1.0) 11/27/23 08:09
Glucose 198 mg/dl (70-99) H 11/27/23 08:09
Vital Signs and I&O:
Vital Signs
Temp Pulse Resp BP Pulse Ox
97.5 F 68 16 113/58 98
11/28/23 08:34 11/28/23 08:34 11/28/23 08:34 11/28/23 08:34 11/28/23 08:34
Vital Signs
Temp Pulse Resp BP Pulse Ox
97.5 F 68 16 113/58 98
11/28/23 08:34 11/28/23 08:34 11/28/23 08:34 11/28/23 08:34 11/28/23 08:34
Intake & Output
11/26/23 11/27/23 11/28/23 11/29/23
06:59 06:59 06:59 06:59
Intake Total 640 / 640 960 / 960 820 / 820
Output Total 850 / 1100 2880 / 2880
Balance -210 / -460 -1920 / -1920 820 / 820
Physical Exam
Physical Exam
GEN: No distress, awake, alert, oriented x3
HEENT: supple, anicteric, mmm
LUNGS: Decreased BS on L, no wheezes/rales
CV: Reg, S1/S2, no murmur
EXT: No clubbing, cyanosis, or edema
NEURO: Gross non-focal
SKIN: Warm, dry, no rash
[2023-11-28 09:12] LABS: Blood Urea Nitrogen 27 mg/dl (7-17); Calcium 8.6 mg/dl (8.4-10.2); Carbon Dioxide 24 mmol/L (22-30); Chloride 96 mmol/L (98-107); Estimated Creatinine Clearance 42 ml/min; Glucose 103 mg/dl (70-99); Magnesium 1.8 mg/dl (1.6-2.3); Potassium 3.8 mmol/L (3.5-5.1); Sodium 131 mmol/L (135-145); eGFR 56.95
--- NOTE | 2023-11-28 09:27 | W.PN.PUL3 ---
Today's Communication / Plan
-
We discussed role of pleurex in this situation with recurrent transudative pleural effusion failing medical therapy
She was agreeable, TT sent to IR and care team that we should move forward with placement and set up home care services
Initially can drain 500mL daily x 1 week, then every other day 500mL x 1 week, then every 3rd day for 500 ml, until no further fluid obtained
Will set up OP follow up for further management
Stop albumin
Optimize diuresis per cards
Assessment
-
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
history of LE cellulitis, pulmonary nodule who presents with SOB. She was recently hospitalized from 10/19 -10/22/2023 for symptomatic bradycardia with dual-chamber permanent pacemaker implantation, postprocedure CXR showing large left-sided pleural
effusion s/p thora 10/19 drained 1.45 L. She was discharged on 10/21. Had outpatient thora 11/18/2023 w/ 1.5 L removed w/ complaints of fullness of her abdomen. She has lost about 30 pounds over the last 3 years despite her having a normal appetite.
CXR on 11/24/2023 showed large left-sided pleural effusion as well as small right-sided pleural effusion. Thoracentesis done 11/24 removed 1.7 L of transudative fluid (monocyte predominant, fluid pH: 7.46 with glucose 108). Post-thoracentesis CT
chest showed moderate centrilobular emphysema with small residual left pleural effusion and mild�moderate sized right pleural effusion. She has been admitted to the floor with cardiology consulted. Pulmonary now consulted as well for additional
recommendations/management.
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
Celiac Disease 1975
Takotsobu cardiomyopathy-recovered EF
s/p CARDIOGENIC SHOCK 04/08/05 EF 20% IMPROVED TO 50 % 04/09/[address]
Former smoker >20 pack years, quit 30 years ago
Hiatal hernia
Lyme disease
Carotid Disease
Hypertension
PANCREATITIS 2005
Irritable bowel disease
CHF
SVT/Paroxysmal atrial fibrillation s/p Cardioversion 06/18/2016
Endometrial polyps s/p D & C, polypectomy
HYPERLIPIDEMIA - MIXED
Fracture right foot/ankle in Feb 2018
Lymphocytic Colitis
Ambulatory dysfunction/Balance issues
Inguinal herniographies xs 2 02/25/2011
Vein removal in [place]. inner foot 2020
Bilateral cataract surgeries 2020
History of pancreatitis 2005
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
Impression:
#Recurrent left-sided pleural effusion s/p multiple thoracentesis, also chronic right-sided pleural effusion
#Acute respiratory failure with hypoxia due to above
#Anasarca
#Hypoalbuminemia
#Chronic HFpEF
#Valvular heart disease with mild�moderate MR + mild TR with mild pulmonary hypertension with PASP 36 mmHg assuming an RAP of 3 mmHg (via TTE in May 2023)
#Coronary artery arteriosclerosis seen on CT chest
Plan:
Respiratory status improved after thoracentesis-pleural fluid slowly reaccumulating
Supplemental oxygen
Aspiration precautions
Incentive spirometry
Chest x-ray 11/27/2023-moderate left pleural effusion increased from prior, small right pleural effusion
Thoracentesis--1.7 L- recurrent transudate 11/25/2023
She does have multiple risk factors for volume overload including hypoalbuminemia and diastolic heart failure with valvular heart disease (MR)
Her proBNP checked on 11/24/2023 was 3930 which is the highest that she has ever been since May 2022
Repeat TTE as last one done in July 2023 ([facility]) --> echo 11/24 shows stage III diastolic dysfunction with normal LV size with no regional WMA and EF 55 to 60%,
also normal RV with dilated right atrium and moderate TR with moderate pulmonary hypertension with PASP 45-50 mmHg
Cardiology consulted with recs appreciated
Replete electrolytes with K>4, Mg>2 while being aggressively diuresed
Maintain net negative fluid balance as tolerated
Diuresis as OP has not been successful
Pleural fluid cultures negative
Pleural fluid cytology 09/27/2023-negative
Pleural fluid cytology 11/25/2023-pending
Again discussed Pleurx catheter if recurrent pleural effusion keeps reoccurring
IR consult obtained and patient agreeable
Can plan to place tomorrow and cancel any further diagnostic taps if agreeable to team
Observe off antibiotics
Cultures on fluid negative to date
Echocardiogram reviewed-EF 55-60%, aortic sclerosis, PA systolic 45
Continue tikosyn, hydralazine and toprol-XL
Continue diuresis
No role for albumin in CHF patients with recurrent effusions
Abd US evaluation for abdominal fluid pending
No history of liver disease
Monitor blood sugar
Insulin supplementation as needed
DVT prophylaxis-on Eliquis
Nutrition
Early mobilization/PT/OT
She has an appointment on 12/14/[address] Castellanos.
Data:
CT chest, abdomen, pelvis with IV contrast 11/25/2023: Small left pleural effusion. Small to moderate right pleural effusion. Atelectasis within the lower lungs.Moderate changes of emphysema within the upper to mid lungs.Small pericardial
effusion.Dense coronary artery calcifications. Please correlate with symptoms of and risk factors for coronary artery disease, with further workup as clinically appropriate. Slightly enlarged lymph nodes in the periaortic and interaortocaval region,
similar to previous examination of May 19, 2023. These are nonspecific and could be reactive inflammatory lymph nodes, but could also be neoplastic. Stability would favor reactive inflammatory nodes. Diffuse subcutaneous edema. Small to moderate
amount of free fluid within the pelvic cul-de-sac. Degenerative changes as described. No CT evidence for bony metastatic disease.
TTE 11/25/2023:
1. Normal left ventricular size with mild LVH, no regional wall motion abnormality, EF 55-60% but with global longitudinal strain of -14.2%. Stage III diastolic dysfunction.
2. Thickened mitral leaflets, mitral annular calcification, mild mitral regurgitation and dilated left atrium
3. Aortic sclerosis without stenosis or significant aortic regurgitation
4. Normal right ventricle, pacing wire seen, dilated right atrium, moderate tricuspid regurgitation and pulmonary artery systolic pressure 45-50 mmHg
Study is similar to May 2023. Right atrial pressure was 36 mmHg at that time.
-----
Total time spent today was 55 minutes for this encounter. Time includes reviewing laboratory test/imaging results, reviewing pertinent medical records, obtaining and reviewing medical history, performing an appropriate exam, ordering medications,
tests and procedures. Time also includes documentation of this encounter, coordinating patient care and communicating with other healthcare professionals. Total time does not include separately billed tests performed on this date of service.
Subjective Data
-
Date of Service:
Date of Service: November 28, 2023
Chief Complaint: Pulmonary Follow Up and Dyspnea Follow Up
Subjective:
No new events, remains stable on RA
CXR showing re-accumulation despite recent thora
She feels SOB is the same
Weakness noted
Objective Data
Data Reviewed
Vital Signs / I&O / Oxygen:
Vital Signs
Temp Pulse Resp BP Pulse Ox
97.5 F 68 16 113/58 98
11/28/23 08:34 11/28/23 08:34 11/28/23 08:34 11/28/23 08:34 11/28/23 08:34
Intake and Output
11/27/23 11/28/23 11/29/23
06:59 06:59 06:59
Intake Total 960 / 960 820 / 820
Output Total 2880 / 2880
Balance -1920 / -1920 820 / 820
SaO2 98
Nasal Cannula flow liters per 2
minute
Physical Exam
General: Respiratory Distress (n), Comfortable, Poor Appetite and Other (thin appearing, weak)
HEENT: Normocephalic, Anicteric and Moist Mucous Membranes
Cardiovascular: S1-S2 and Regular Rhythm
Respiratory: Clear (Decreased breath sounds left base), Wheeze (n), Crackles (Left basilar), Rhonchi (n), Non-Labored Respirations, Accessory Resp Muscle Use (n) and Stridor (n)
GI: Soft, Non Distended and Non Tender
Neurology: AO x 3 and No Motor Deficits
Skin: Warm, Good Color, Cyanosis (n), Jaundice (n) and Rash (n)
Labs/Micro/Reports
Lab Data
11/28/23 07:02
Microbiology
11/25/23 08:22 Pleural Fluid Body Fluid Culture - Preliminary
No Growth After 48 Hours
11/25/23 08:22 Pleural Fluid Gram Stain - Preliminary
[2023-11-28 09:53] LABS: % Basophils 1.1 % (0-2); % Eosinophils 2.1 % (0-6); % Immature Granulocytes 0.4 % (0-0.5); % Lymphocytes 31.3 % (20.5-51.1); % Monocytes 10.2 % (1.7-9.3); % Neutrophils 54.9 % (42.2-75.2); Absolute Basophils 0.1 10^3/uL (0-0.2); Absolute Eosinophils 0.2 10^3/uL (0-0.7); Absolute Lymphocytes 2.3 10^3/uL (1.2-3.4); Absolute Monocytes 0.7 10^3/uL (0.1-0.6); Hemoglobin 9.7 g/dL (12.0-16.0); Mean Corp Hgb Conc. 33.4 g/dL (33.0-37.0); Mean Corpuscular Hgb 31.5 pg (27.0-31.0); Mean Corpuscular Volume 94.2 fL (81.0-99.0); Mean Platelet Volume 9.7 fL (7.4-10.4); Nucleated Red Blood Cells % 0 %; Platelet Count 461 10^3/uL (130-400); Red Blood Cell Count 3.08 10^6/uL (4.20-5.40); Red Cell Dist. Width 16.3 % (11.5-14.5); White Blood Cell Count 7.2 10^3/uL (4.8-10.8)
--- NOTE | 2023-11-28 11:00 | W.CARD.DEVCH ---
Cardiac Device Check
-
Device: Pacemaker
Records Section Supervisor: [employer]
The patient's device was interrogated with assistance of the device artists' booking representative followed by a complete physician review. The device had normal function. 4.5% afib burden.
--- NOTE | 2023-11-28 12:49 | W.PN.HOSP.TC ---
Today's Communication/Plan
-
IV lasix-dose increased
IRAD for thoracentesis
Abd US to asses for ascites
trend cr
Assessment / Plan
Assessment / Plan
#Recurrent exudative left pleural effusion
#Acute hypoxemic respiratory insufficiency -- (RESOLVED)
-Unclear etiology, has had multiple thoracentesis over the last year
-Only 1 set of fluid studies that show transudative effusion, no signs of malignancy
-CT C/A/P today showed stable lymphadenopathy, no new masses or signs of malignancy
-Fluid studies showed Lights criteria positive; cell counts and glucose WNL; culture negative
-Remains on room air comfortably
-Follow-up pleural fluid cytology
-IV Lasix with albumin as below
-Incentive spirometer, monitor respiratory status
-IRAD consulted for Left thora.
-Abd US to assess for ascites.
-Defer Pleurex to pulm.
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
#H/O Takotsubo cardiomyopathy
-Suspicion is fairly high for restrictive cardiomyopathy versus potentially constrictive disease
-Echocardiogram showed preserved EF, abnormal GLS with grade III Diastolic dysfunction
-Transition Lasix IV regimen, added albumin with Lasix for oncotic pressure. Lasix dose increased.
-Cardiology sent amyloid workup yesterday. Recent OP work up was found to be negative.
-Can consider Cardiac MRI as outpatient
-Continue beta-pasha for GDMT
-Follow-up SPEP/UPEP + ALEKS, light chains;
-Monitor volume status clinically, observe for improvement in exertional dyspnea
#Nonischemic myocardial injury 2/2 acute heart failure
-No chest pain or ischemic ECG findings on admission
-Troponin trend not consistent with ACS, relatively flat
#Persistent atrial fibrillation
-Home medications include dofetilide, metoprolol tartrate, Eliquis
-Has had multiple cardioversions in the past with recurrence
-Heart rate irregular though WNL on average here
#Hypertension Primary
- metoprolol and hydralazine
-Blood pressure currently adequate
#Hyperlipidemia
-cont statin
#Chronic hyponatremia
-Possibly hypervolemic with her recurrent effusions
-Serum sodium baseline in the high 120s, 130 range
-Upon arrival her serum sodium was 131, has been stable
-Will monitor daily BMP while here
#Celiac's disease
-Gluten-free diet
-No signs of flare
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
-States that she had a nephrotic syndrome when she was young, following infection with measles
-States that she had a lot of fluid build up in her stomach and legs at the time consistent with nephrosis
#Sick sinus syndrome s/p PPM (October 18)
DVT prophylaxis: Eliquis
Diet: Gluten-free
CODE STATUS: Full code
Anticipated Discharge: > 48 hours
Subjective/Interval History
-
Date of Service: November 28, 2023
states of sob
states of abd distention
Objective Data
-
Labs:
Laboratory Results
11/28/23
07:02
WBC 7.2
Hgb 9.7 L
Hct 29.0 L
Plt Count 461 H D
Sodium 131 L
Potassium 3.8
Chloride 96 L
Carbon Dioxide 24
BUN 27 H
Creatinine 1.0
Glucose 103 H
Calcium 8.6
Vital Signs:
Vital Signs
Temp Pulse Resp BP Pulse Ox
97.5 F 68 16 113/58 98
11/28/23 08:34 11/28/23 08:34 11/28/23 08:34 11/28/23 08:34 11/28/23 08:34
I&O
11/27/23 11/28/23 11/29/23
06:59 06:59 06:59
Intake Total 960 / 960 820 / 820 100 / 100
Output Total 2880 / 2880
Balance -1920 / -1920 820 / 820 100 / 100
Physical Exam
-
General: No Apparent Distress, Comfortable and Other (Thin and frail appearing); Negative Respiratory Distress
HEENT: Normocephalic, Atraumatic, Moist Mucous Membranes and Anicteric
Respiratory: Non Labored Respirations and Decreased Breath Sounds (Left lung base); Negative Wheezes, Rales, Rhonchi or Accessory Resp Muscle Use
Cardiac: S1/S2 and Murmur; Negative Rub, JVD or Gallop
GI: Soft, Nontender, Normal Bowel Sounds and Distended
Musculoskeletal: No Clubbing, No Cyanosis and Other (1+ bilateral leg edema)
Skin: Warm, Dry and Normal Turgor; Negative Rash or Jaundice
Neuro: Awake, AO x 3, Nonfocal/Grossly Intact and Central Nerve's Intact
Psych: Calm
Data Reviewed
-
Total Time Spent with Patient (in minutes): 58
[2023-11-28] MEDS: LASIX 60 MG IV (16:21)
--- NOTE | 2023-11-28 16:47 | VNURNOTE ---
Home Health Liaison met with patient at bedside to discuss [facility] nurse/therapy, visits, schedule and homebound status. Patient is agreeable and understands that visits at home will be 2-3 x per week to assess and teach Asept drain/ medical
management. Inquired who in family could be available to help w/Asept and care when DC'ed home. Patient thinks her granddaughter might be willing to help. She will speak w/her later today about it. Patient tells this author she has 4 adult
children and multiple grandchildren who all live nearby. [facility] brochure provided with contact information. Patient is aware that [facility] will contact them for start of care in 1-2 days after discharge from .
[facility] referral completed in [facility].
[2023-11-28] MEDS: TOPROL XL 12.5 MG PO (22:07)
[2023-11-29] VITALS (13 sets, daily range): BP systolic 60–133; BP diastolic 49–84; PULSE 111; O2SAT 96; BMI 21.4
[2023-11-29 08:46] LABS: 24 Hour Urine Total Volume Random mL; Urine Collection Length Random hr; Urine Free Kappa Light Chains 89.82 mg/L (0.00-32.90); Urine Free Lambda Light Chains 8.25 mg/L (0.00-3.79)
--- NOTE | 2023-11-29 09:19 | W.PN.PUL3 ---
Today's Communication / Plan
-
Remains stable on RA, no worsening SOB
Planning for [facility] placement today, IR consult placed
Will review her fluid extraction plan, resume as OP
CM consult for home care set up post placement
Discharge planning in next 24 hours post education
Assessment
-
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
history of LE cellulitis, pulmonary nodule who presents with SOB. She was recently hospitalized from 10/19 -10/22/2023 for symptomatic bradycardia with dual-chamber permanent pacemaker implantation, postprocedure CXR showing large left-sided pleural
effusion s/p thora 10/19 drained 1.45 L. She was discharged on 10/21. Had outpatient thora 11/18/2023 w/ 1.5 L removed w/ complaints of fullness of her abdomen. She has lost about 30 pounds over the last 3 years despite her having a normal appetite.
CXR on 11/24/2023 showed large left-sided pleural effusion as well as small right-sided pleural effusion. Thoracentesis done 11/24 removed 1.7 L of transudative fluid (monocyte predominant, fluid pH: 7.46 with glucose 108). Post-thoracentesis CT
chest showed moderate centrilobular emphysema with small residual left pleural effusion and mild�moderate sized right pleural effusion. She has been admitted to the floor with cardiology consulted. Pulmonary now consulted as well for additional
recommendations/management.
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
Celiac Disease 1975
Takotsobu cardiomyopathy-recovered EF
s/p CARDIOGENIC SHOCK 04/08/05 EF 20% IMPROVED TO 50 % 04/09/[address]
Former smoker >20 pack years, quit 30 years ago
Hiatal hernia
Lyme disease
Carotid Disease
Hypertension
PANCREATITIS 2006
Irritable bowel disease
CHF
SVT/Paroxysmal atrial fibrillation s/p Cardioversion 06/18/2016
Endometrial polyps s/p D & C, polypectomy
HYPERLIPIDEMIA - MIXED
Fracture right foot/ankle in Feb 2018
Lymphocytic Colitis
Ambulatory dysfunction/Balance issues
Inguinal herniographies xs 2 02/25/2011
Vein removal in [place]. inner foot 2020
Bilateral cataract surgeries 2020
History of pancreatitis 2005
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
Impression:
#Recurrent left-sided pleural effusion s/p multiple thoracentesis, also chronic right-sided pleural effusion
#Acute respiratory failure with hypoxia due to above
#Anasarca
#Hypoalbuminemia
#Chronic HFpEF
#Valvular heart disease with mild�moderate MR + mild TR with mild pulmonary hypertension with PASP 36 mmHg assuming an RAP of 3 mmHg (via TTE in May 2023)
#Coronary artery arteriosclerosis seen on CT chest
Plan:
Respiratory status improved after thoracentesis-pleural fluid slowly reaccumulating
Supplemental oxygen
Aspiration precautions
Incentive spirometry
Chest x-ray 11/27/2023-moderate left pleural effusion increased from prior, small right pleural effusion
Thoracentesis--1.7 L- recurrent transudate 11/25/2023
She does have multiple risk factors for volume overload including hypoalbuminemia and diastolic heart failure with valvular heart disease (MR)
Her proBNP checked on 11/24/2023 was 3930 which is the highest that she has ever been since May 2022
Repeat TTE as last one done in July 2023 ([facility]) --> echo 11/24 shows stage III diastolic dysfunction with normal LV size with no regional WMA and EF 55 to 60%,
also normal RV with dilated right atrium and moderate TR with moderate pulmonary hypertension with PASP 45-50 mmHg
Cardiology consulted with recs appreciated
Replete electrolytes with K>4, Mg>2 while being aggressively diuresed
Maintain net negative fluid balance as tolerated
Diuresis as OP has not been successful
Pleural fluid cultures negative
Pleural fluid cytology 09/27/2023-negative
Pleural fluid cytology 11/25/2023-pending
Again discussed Pleurx catheter if recurrent pleural effusion keeps reoccurring
IR consult obtained and patient agreeable
Observe off antibiotics
Cultures on fluid negative to date
Echocardiogram reviewed-EF 55-60%, aortic sclerosis, PA systolic 45
Continue tikosyn, hydralazine and toprol-XL
Continue diuresis
No role for albumin in CHF patients with recurrent effusions
Abd US evaluation for abdominal fluid pending
No history of liver disease
Monitor blood sugar
Insulin supplementation as needed
DVT prophylaxis-on Eliquis
Nutrition
Early mobilization/PT/OT
She has an appointment on 12/14/[address] Castellanos.
Data:
CT chest, abdomen, pelvis with IV contrast 11/25/2023: Small left pleural effusion. Small to moderate right pleural effusion. Atelectasis within the lower lungs.Moderate changes of emphysema within the upper to mid lungs.Small pericardial
effusion.Dense coronary artery calcifications. Please correlate with symptoms of and risk factors for coronary artery disease, with further workup as clinically appropriate. Slightly enlarged lymph nodes in the periaortic and interaortocaval region,
similar to previous examination of May 19, 2023. These are nonspecific and could be reactive inflammatory lymph nodes, but could also be neoplastic. Stability would favor reactive inflammatory nodes. Diffuse subcutaneous edema. Small to moderate
amount of free fluid within the pelvic cul-de-sac. Degenerative changes as described. No CT evidence for bony metastatic disease.
TTE 11/25/2023:
1. Normal left ventricular size with mild LVH, no regional wall motion abnormality, EF 55-60% but with global longitudinal strain of -14.2%. Stage III diastolic dysfunction.
2. Thickened mitral leaflets, mitral annular calcification, mild mitral regurgitation and dilated left atrium
3. Aortic sclerosis without stenosis or significant aortic regurgitation
4. Normal right ventricle, pacing wire seen, dilated right atrium, moderate tricuspid regurgitation and pulmonary artery systolic pressure 45-50 mmHg
Study is similar to May 2023. Right atrial pressure was 36 mmHg at that time.
-----
Total time spent today was 55 minutes for this encounter. Time includes reviewing laboratory test/imaging results, reviewing pertinent medical records, obtaining and reviewing medical history, performing an appropriate exam, ordering medications,
tests and procedures. Time also includes documentation of this encounter, coordinating patient care and communicating with other healthcare professionals. Total time does not include separately billed tests performed on this date of service.
Subjective Data
-
Date of Service:
Date of Service: November 29, 2023
Chief Complaint: Pulmonary Follow Up and Dyspnea Follow Up
Subjective:
No new events ON, remains on RA
No worsening SOB
Objective Data
Data Reviewed
Vital Signs / I&O / Oxygen:
Vital Signs
Temp Pulse Resp BP Pulse Ox
98.1 F 80 16 108/68 95
11/29/23 07:10 11/29/23 07:10 11/29/23 07:10 11/29/23 07:10 11/29/23 07:10
Intake and Output
11/28/23 11/29/23 11/30/23
06:59 06:59 06:59
Intake Total 820 / 820 1060 / 1060
Balance 820 / 820 1060 / 1060
SaO2 95
Nasal Cannula flow liters per 2
minute
Physical Exam
General: Respiratory Distress (n), Comfortable, Poor Appetite and Other (thin appearing, weak)
HEENT: Normocephalic, Anicteric and Moist Mucous Membranes
Cardiovascular: S1-S2 and Regular Rhythm
Respiratory: Clear (Decreased breath sounds left base), Wheeze (n), Crackles (Left basilar), Rhonchi (n), Non-Labored Respirations, Accessory Resp Muscle Use (n) and Stridor (n)
GI: Soft, Non Distended and Non Tender
Neurology: AO x 3 and No Motor Deficits
Skin: Warm, Good Color, Cyanosis (n), Jaundice (n) and Rash (n)
Labs/Micro/Reports
Lab Data
11/28/23 07:02
Microbiology
11/25/23 08:22 Pleural Fluid Body Fluid Culture - Final
No Growth After 72 Hours
11/25/23 08:22 Pleural Fluid Gram Stain - Final
[2023-11-29 09:53] LABS: Blood Urea Nitrogen 28 mg/dl (7-17); Calcium 8.3 mg/dl (8.4-10.2); Carbon Dioxide 27 mmol/L (22-30); Chloride 96 mmol/L (98-107); Estimated Creatinine Clearance 42 ml/min; Glucose 108 mg/dl (70-99); Sodium 131 mmol/L (135-145); eGFR 56.95
[2023-11-29 10:03] LABS: Potassium 3.8 mmol/L (3.5-5.1)
[2023-11-29] MEDS: TIKOSYN 125 MCG PO ×2 (10:03→20:13)
[2023-11-29] MEDS: ALDACTONE 12.5 MG PO (10:03)
[2023-11-29] MEDS: APRESOLINE 25 MG PO ×2 (10:03→20:14)
[2023-11-29] MEDS: KCL 20 MEQ PO (10:04)
[2023-11-29] MEDS: ZETIA 10 MG PO (10:04)
[2023-11-29] MEDS: ELIQUIS 2.5 MG PO (10:04)
--- NOTE | 2023-11-29 11:19 | W.PN.HOSP.TC ---
Today's Communication/Plan
-
IV lasix if bp can tolerate it
Asept catheter placement
Assessment / Plan
Assessment / Plan
#Recurrent exudative left pleural effusion
#Acute hypoxemic respiratory insufficiency -- (RESOLVED)
-Unclear etiology, has had multiple thoracentesis over the last year
-Only 1 set of fluid studies that show transudative effusion, no signs of malignancy
-CT C/A/P showed stable lymphadenopathy, no new masses or signs of malignancy
-Fluid studies showed Lights criteria positive; cell counts and glucose WNL; culture negative
-Remains on room air comfortably
-Follow-up pleural fluid cytology
-IV Lasix with albumin as below
-Incentive spirometer, monitor respiratory status
-IRAD consulted -Plan for Asept catheter placement today.
-Abd US to assess for ascites-negative for ascites.
-Pulm following
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
#H/O Takotsubo cardiomyopathy
-Suspicion is fairly high for restrictive cardiomyopathy versus potentially constrictive disease
-Echocardiogram showed preserved EF, abnormal GLS with grade III Diastolic dysfunction
-Transition Lasix IV regimen, added albumin with Lasix for oncotic pressure. Lasix dose increased-soft BP at times.
-Cardiology sent amyloid workup yesterday. Recent OP work up was found to be negative.
-Can consider Cardiac MRI as outpatient
-Continue beta-pasha for GDMT
-Follow-up SPEP/UPEP + ALEKS, light chains;
-Monitor volume status clinically, observe for improvement in exertional dyspnea
#Nonischemic myocardial injury 2/2 acute heart failure
-No chest pain or ischemic ECG findings on admission
-Troponin trend not consistent with ACS, relatively flat
#Persistent atrial fibrillation
-Home medications include dofetilide, metoprolol tartrate, Eliquis
-Has had multiple cardioversions in the past with recurrence
#Hypertension Primary
- metoprolol and hydralazine
#Hyperlipidemia
-cont statin
#Chronic hyponatremia
-Possibly hypervolemic with her recurrent effusions
-Serum sodium baseline in the high 120s, 130 range
-Upon arrival her serum sodium was 131, has been stable
-Will monitor daily BMP while here
#Celiac's disease
-Gluten-free diet
-No signs of flare
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
-States that she had a nephrotic syndrome when she was young, following infection with measles
-States that she had a lot of fluid build up in her stomach and legs at the time consistent with nephrosis
#Sick sinus syndrome s/p PPM (October 18)
DVT prophylaxis: Eliquis
Diet: Gluten-free
CODE STATUS: Full code
Anticipated Discharge: > 48 hours
Subjective/Interval History
-
Date of Service: November 29, 2023
states feel sob at times
agreed for catheter and has help at home with drainage
Objective Data
-
Labs:
Laboratory Results
11/29/23
08:52
Sodium 131 L
Potassium 3.8
Chloride 96 L
Carbon Dioxide 27
BUN 28 H
Creatinine 1.0
Glucose 108 H
Calcium 8.3 L
Vital Signs:
Vital Signs
Temp Pulse Resp BP Pulse Ox
98.1 F 80 16 108/68 95
11/29/23 07:10 11/29/23 07:10 11/29/23 07:10 11/29/23 07:10 11/29/23 07:10
I&O
11/28/23 11/29/23 11/30/23
06:59 06:59 06:59
Intake Total 820 / 820 1060 / 1060
Balance 820 / 820 1060 / 1060
Physical Exam
-
General: No Apparent Distress, Comfortable and Other (Thin and frail appearing); Negative Respiratory Distress
HEENT: Normocephalic, Atraumatic, Moist Mucous Membranes and Anicteric
Respiratory: Non Labored Respirations and Decreased Breath Sounds (Left lung base); Negative Wheezes, Rales, Rhonchi or Accessory Resp Muscle Use
Cardiac: S1/S2 and Murmur; Negative Rub, JVD or Gallop
GI: Soft, Nontender, Normal Bowel Sounds and Distended
Musculoskeletal: No Clubbing, No Cyanosis, Edema, Right Lower Extrem and Edema, Left Lower Extrem
Skin: Warm, Dry and Normal Turgor; Negative Rash or Jaundice
Neuro: Awake, AO x 3, Nonfocal/Grossly Intact and Central Nerve's Intact
Psych: Calm
[2023-11-29] MEDS: LASIX 60 MG IV (12:16)
--- NOTE | 2023-11-29 13:26 | W.PN.CARDCBS ---
Addendum entered and electronically signed by Mendoza Perera MD 11/29/23 13:51:
I saw and examined the patient.
The SHOULDER SAWYER or PA's note was reviewed and I agree with the note.
Comment: General: Well developed, well nourished in NAD.
Neck: Supple, no JVD, HJR, carotids +2 B/L, no bruits bilaterally.
Heart: Non displaced PMI, RRR, no murmurs, No S3, S4, no rubs.
Lungs: Scattered rhonchi
Extremities: No clubbing, cyanosis or edema bilaterally.
Neuro: Grossly nonfocal, awake, alert and oriented x3.
Etiology of pleural fluid unclear. She is for Pleurx catheter. Continue IV Lasix but might consider change to oral Lasix on 11/29
Original Note:
Today's Communication / Plan
-
pleurx catheter per pulm
IV lasix
repeat EKG
Impression / Plan
-
PCP: Stella Sutherland PA-C
Driver Material Handler: Dr. Kiera Diaz
Impression:
Presented with SOB
Acute on chronic HFpEF
Recurrent left-sided pleural effusion
s/p thoracentesis 05/18/2023 w/ 750 cc removed
s/p thoracentesis 09/27/2023 w/ 1500 cc removed
s/p thoracentesis 10/20/2023 w/ 1450 cc removed
s/p thoracentesis 11/18/2023 w/ 1500 cc removed
s/p thoracentesis 11/25/2023 w/ 1700 cc removed
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
Hyponatremia
Elevated troponin, suspect nonischemic myocardial injury
Persistent atrial fibrillation
Prior PVI (2016)
s/p PFA 08/24/23
Maintained on Tikosyn
Chronic anticoagulation on Eliquis
Takotsubo CM w/recovered EF (2005)
HLD
HTN
MR
Renal nephrosis
Vertigo Edema
Lung Nodule (2021, stable)
Anemia
Hyponatremia
LE cellulitis (05/14/23)
Echo 05/18/2023: EF 69%, stage II diastolic dysfunction. Moderately dilated right atrium. Mild to moderate MR. Mild TR. PAP 36 mmHg. Small pericardial effusion
Echo 11/25/2023: EF 55-60%, global longitudinal strain is -14.2, stage III diastolic dysfunction, mild MR, dilated left atrium, aortic sclerosis, normal RV, pulmonary artery systolic pressure 45-50 mmHg
Plan:
-She presented with shortness of breath. She has had multiple admissions for recurrent left pleural effusion and acute heart failure in the last several months.
-Status post thoracentesis for 1700 cc 11/25/2023. Repeat CXR 11/26 w/ reaccumulation of effusion, now moderate. Review of pleural fluid appears to be exudative, previously was transudative. concern for trapped lung physiology, plan for pleurx
catheter placement per pulmonary today
-Continue IV Lasix, dose increased to 60 mg twice daily 11/27. remains with LE edema on exam. previous dry weight was 122 pounds in 10/2023.
-abd US negative for ascites
-device check 11/27 with 4.5% afib burden. appears to be in afib/atach, mostly with elevated HRs with exertion. currently on tikosyn 125mcg Q12H, CrCl 42, QTc 510ms by EKG 11/23. repeat EKG
-consideration for repeat ablation vs possible AVJ ablation if HRs in afib difficult to control/afib felt to be etiology of CHF
-continue toprol, hydralazine. spironolactone added this admission. No SGLT2 inhibitor due to h/o UTI.
-Previously had pyrophosphate scan which was negative for amyloid. Repeat amyloid blood tests drawn 11/26, pending. May consider OP cardiac MRI.
-d/w nursing
HPI: Gabriela is an 78 year old female with PMH of symptomatic bradycardia s/p PPM, chronic HFpEF, persistent atrial fibrillation, takotsubo CM, recurrent L pleural effusion, HTN, HLD, MR, and chronic anemia. She presented to [facility] for evaluation
of worsening SOB. She has had multiple recent left sided thoracenteses, most recently 11/17. She noticed increased SOB in AM 11/23 as well as a cough. She called the cardiology office and was recommended to come to ER for evaluation. In ER, she was
found to have recurrent L pleural effusion as well as evidence of acute heart failure with proBNP 3930. She was admitted and started on IV lasix. This AM, she had another thoracentesis with 1700 cc removed. Fluid studies pending. Cardiology
consulted for evaluation given acute heart failure exacerbation. She reports feeling improved following thoracentesis.
Progress Note - Driver Material Handler
Subjective
Date of Service: November 29, 2023
with SOB, mainly with exertion
Objective
Labs:
11/28/23 07:02
11/29/23 08:52
Labs
Hgb 9.7 g/dL (12.0-16.0) L 11/28/23 07:02
Hct 29.0 % (37.0-47.0) L 11/28/23 07:02
Plt Count 461 10^3/uL (130-400) H D 11/28/23 07:02
Sodium 131 mmol/L (135-145) L 11/29/23 08:52
Potassium 3.8 mmol/L (3.5-5.1) 11/29/23 08:52
BUN 28 mg/dl (7-17) H 11/29/23 08:52
Creatinine 1.0 mg/dL (0.6-1.0) 11/29/23 08:52
Glucose 108 mg/dl (70-99) H 11/29/23 08:52
Vital Signs and I&O:
Vital Signs
Temp Pulse Resp BP Pulse Ox
98 F 111 16 123/81 96
11/29/23 11:25 11/29/23 11:25 11/29/23 11:25 11/29/23 12:16 11/29/23 11:25
Vital Signs
Temp Pulse Resp BP Pulse Ox
98 F 111 16 123/81 96
11/29/23 11:25 11/29/23 11:25 11/29/23 11:25 11/29/23 12:16 11/29/23 11:25
Intake & Output
11/27/23 11/28/23 11/29/23 11/30/23
07:59 07:59 07:59 07:59
Intake Total 960 / 960 820 / 820 1060 / 1060
Output Total 2630 / 2630
Balance -1670 / -1670 820 / 820 1060 / 1060
Physical Exam
Physical Exam
GEN: No distress, awake, alert, oriented x3. frail appearing. sitting in chair
HEENT: supple, anicteric, mmm, eomi
LUNGS: Decreased BS LLB, no wheezes
CV: Reg, S1/S2, 1/6 syst LSB
ABD: soft, BS+, NT/ND
EXT: No cyanosis, clubbing. 3+ edema of B/L LE
NEURO: Gross non-focal
SKIN: Warm, pink, dry. No rash
[2023-11-29] MEDS: VANCOCIN 200 IV (15:27)
[2023-11-29] MEDS: FLUSH (NSS) 1 FLUSH IV (15:30)
--- NOTE | 2023-11-29 16:57 | CM ---
CM continues to follow; Pleurex drainage catheter procedure done today. Referral made to [facility] for care at home. Anticipate patient will be sent home with supplies and additional supplies will be ordered by VN when needed.
Plan for discharge to home with VN once patient teaching on Pleurex is completed.
[2023-11-29 17:32] LABS: Body Fluid pH 7.51
[2023-11-29 17:34] LABS: Body Fluid Mononuclear 70.6 %; Body Fluid Polymorphonuclear 29.4 %; Body Fluid WBC 452 /CUMM
[2023-11-29 17:35] LABS: Body Fluid Second Tech EYM
[2023-11-29 17:43] LABS: Body Fluid Amylase 45 U/L; Body Fluid Glucose 116 mg/dl; Body Fluid LDH 118 U/L; Body Fluid Protein 2.1 g/dl
[2023-11-29 17:46] LABS: Body Fluid Triglycerides < 30 mg/dl
[2023-11-29] MEDS: TYLENOL 650 MG PO ×2 (18:35→23:56)
[2023-11-29] MEDS: LASIX IV (20:10)
[2023-11-29] MEDS: TOPROL XL 12.5 MG PO (21:32)
[2023-11-30 03:22] VITALS: BP 108/54
[2023-11-30 06:00] VITALS: BMI 21.4
[2023-11-30] MEDS: TYLENOL 650 MG PO ×2 (06:22→11:32)
[2023-11-30 07:10] VITALS: BP 106/68
[2023-11-30] MEDS: LASIX 60 MG IV (09:00)
[2023-11-30] MEDS: TIKOSYN 125 MCG PO (09:02)
[2023-11-30] MEDS: ZETIA 10 MG PO (09:02)
[2023-11-30] MEDS: ALDACTONE 12.5 MG PO (09:03)
[2023-11-30] MEDS: KCL 20 MEQ PO (09:03)
[2023-11-30] MEDS: APRESOLINE 25 MG PO (09:03)
[2023-11-30] MEDS: LIPITOR 10 MG PO (09:04)
[2023-11-30 09:17] LABS: Blood Urea Nitrogen 36 mg/dl (7-17); Calcium 8.2 mg/dl (8.4-10.2); Carbon Dioxide 26 mmol/L (22-30); Chloride 97 mmol/L (98-107); Estimated Creatinine Clearance 35 ml/min; Glucose 113 mg/dl (70-99); Sodium 132 mmol/L (135-145); eGFR 45.76
[2023-11-30 09:26] LABS: Albumin 1.92 g/dL (3.75-5.01); Alpha 1 Globulin 0.23 g/dL (0.19-0.46); Free Kappa Light Chains,Quant 93.58 mg/L (3.30-19.40); Free Lambda Light Chains,Quant 67.97 mg/L (5.71-26.30); IgA 601 mg/dL (68-408); IgG 728 mg/dL (768-1632); IgM 507 mg/dL (35-263); Immunofixation Electrophoresis IFE Done; Kappa/Lambda Fr Light Ratio 1.38 (0.26-1.65); Total Protein-Electrophoresis 5.4 g/dL (6.3-8.2)
--- NOTE | 2023-11-30 10:49 | VNURNOTE ---
Spoke w/Taisha Thomas in IR. She confirmed IR sent Rx to [facility] for home Asept supplies. Patient needs to set up acct w/pamela mushtaq. This author called [facility] to confirm above. Left message. Attempted to visit patient at bedside. She was in
the bathroom. Her daughter in law Jazmin was at bedside. NANI stated she will follow up to see if account was created. Granddaughter was supposed to set up acct. Granddaughter just tested + for COVID. NANI Jazmin stated she is agreeable to
learn Asept drainage.
This author confirmed w/Jackeline Mcallister that Jackeline will follow and oversee Asept orders for VN upon DC.
Plan: Follow up that acct created w/[facility] and that supplies are shipped.
[2023-11-30 11:09] VITALS: BP 141/81
--- NOTE | 2023-11-30 11:34 | W.PN.PUL3 ---
Today's Communication / Plan
-
s/p ASEPT placement, doing well
We reviewed drainage recs for at home
Pain control
Encourage OOB/PT
Outpatient pulmonary FU recommended in 2 weeks
Discharge planning per team
Assessment
-
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
history of LE cellulitis, pulmonary nodule who presents with SOB. She was recently hospitalized from 10/19 -10/22/2023 for symptomatic bradycardia with dual-chamber permanent pacemaker implantation, postprocedure CXR showing large left-sided pleural
effusion s/p thora 10/19 drained 1.45 L. She was discharged on 10/21. Had outpatient thora 11/18/2023 w/ 1.5 L removed w/ complaints of fullness of her abdomen. She has lost about 30 pounds over the last 3 years despite her having a normal appetite.
CXR on 11/24/2023 showed large left-sided pleural effusion as well as small right-sided pleural effusion. Thoracentesis done 11/24 removed 1.7 L of transudative fluid (monocyte predominant, fluid pH: 7.46 with glucose 108). Post-thoracentesis CT
chest showed moderate centrilobular emphysema with small residual left pleural effusion and mild�moderate sized right pleural effusion. She has been admitted to the floor with cardiology consulted. Pulmonary now consulted as well for additional
recommendations/management.
#Recurrent left-sided pleural effusion s/p multiple thoracentesis, also chronic right-sided pleural effusion s/p ASEPT placement 11/29/23
#Acute respiratory failure with hypoxia due to above
#Anasarca
#Hypoalbuminemia
#Chronic HFpEF
#Valvular heart disease with mild�moderate MR + mild TR with mild pulmonary hypertension with PASP 36 mmHg assuming an RAP of 3 mmHg (via TTE in May 2023)
#Coronary artery arteriosclerosis seen on CT chest
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
Celiac Disease 1975
Takotsobu cardiomyopathy-recovered EF
s/p CARDIOGENIC SHOCK 04/08/05 EF 20% IMPROVED TO 50 % 04/09/[address]
Former smoker >20 pack years, quit 30 years ago
Hiatal hernia
Lyme disease
Carotid Disease
Hypertension
PANCREATITIS 2005
Irritable bowel disease
CHF
SVT/Paroxysmal atrial fibrillation s/p Cardioversion 06/18/2016
Endometrial polyps s/p D & C, polypectomy
HYPERLIPIDEMIA - MIXED
Fracture right foot/ankle in Feb 2018
Lymphocytic Colitis
Ambulatory dysfunction/Balance issues
Inguinal herniographies xs 2 02/25/2011
Vein removal in [place]. inner foot 2020
Bilateral cataract surgeries 2020
History of pancreatitis 2005
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
Plan:
Respiratory status improved after thoracentesis-pleural fluid slowly reaccumulating
Supplemental oxygen
Aspiration precautions
Incentive spirometry
Chest x-ray 11/27/2023-moderate left pleural effusion increased from prior, small right pleural effusion
Thoracentesis--1.7 L- recurrent transudate 11/25/2023
She does have multiple risk factors for volume overload including hypoalbuminemia and diastolic heart failure with valvular heart disease (MR)
Her proBNP checked on 11/24/2023 was 3930 which is the highest that she has ever been since May 2022
Repeat TTE as last one done in July 2023 ([facility]) --> echo 11/24 shows stage III diastolic dysfunction with normal LV size with no regional WMA and EF 55 to 60%,
also normal RV with dilated right atrium and moderate TR with moderate pulmonary hypertension with PASP 45-50 mmHg
Cardiology consulted with recs appreciated
Replete electrolytes with K>4, Mg>2 while being aggressively diuresed
Maintain net negative fluid balance as tolerated
Diuresis as OP has not been successful
Pleural fluid cultures negative
Pleural fluid cytology 09/27/2023-negative
Pleural fluid cytology 11/25/2023-pending
Again discussed Pleurx catheter if recurrent pleural effusion keeps reoccurring
IR consult obtained and patient agreeable--s/p ASEPT 11/29/23
We reviewed instructions for drainage
CM to set up home VN
Observe off antibiotics
Cultures on fluid negative to date
Echocardiogram reviewed-EF 55-60%, aortic sclerosis, PA systolic 45
Continue tikosyn, hydralazine and toprol-XL
Continue diuresis
No role for albumin in CHF patients with recurrent effusions
Abd US evaluation for abdominal fluid pending
No history of liver disease
Monitor blood sugar
Insulin supplementation as needed
DVT prophylaxis-on Eliquis
Nutrition
Early mobilization/PT/OT
She has an appointment on 12/14/[address] Castellanos.
Discharge planning per team
Data:
CT chest, abdomen, pelvis with IV contrast 11/25/2023: Small left pleural effusion. Small to moderate right pleural effusion. Atelectasis within the lower lungs.Moderate changes of emphysema within the upper to mid lungs.Small pericardial
effusion.Dense coronary artery calcifications. Please correlate with symptoms of and risk factors for coronary artery disease, with further workup as clinically appropriate. Slightly enlarged lymph nodes in the periaortic and interaortocaval region,
similar to previous examination of May 19, 2023. These are nonspecific and could be reactive inflammatory lymph nodes, but could also be neoplastic. Stability would favor reactive inflammatory nodes. Diffuse subcutaneous edema. Small to moderate
amount of free fluid within the pelvic cul-de-sac. Degenerative changes as described. No CT evidence for bony metastatic disease.
TTE 11/25/2023:
1. Normal left ventricular size with mild LVH, no regional wall motion abnormality, EF 55-60% but with global longitudinal strain of -14.2%. Stage III diastolic dysfunction.
2. Thickened mitral leaflets, mitral annular calcification, mild mitral regurgitation and dilated left atrium
3. Aortic sclerosis without stenosis or significant aortic regurgitation
4. Normal right ventricle, pacing wire seen, dilated right atrium, moderate tricuspid regurgitation and pulmonary artery systolic pressure 45-50 mmHg
Study is similar to May 2023. Right atrial pressure was 36 mmHg at that time.
-----
Total time spent today was 55 minutes for this encounter. Time includes reviewing laboratory test/imaging results, reviewing pertinent medical records, obtaining and reviewing medical history, performing an appropriate exam, ordering medications,
tests and procedures. Time also includes documentation of this encounter, coordinating patient care and communicating with other healthcare professionals. Total time does not include separately billed tests performed on this date of service.
Subjective Data
-
Date of Service:
Date of Service: November 30, 2023
Chief Complaint: Pulmonary Follow Up and Dyspnea Follow Up
Subjective:
no acute events ON, remains stable on RA
s/p ASEPT placement, some L sided pain associated with placement
cough ongoing
Objective Data
Data Reviewed
Vital Signs / I&O / Oxygen:
Vital Signs
Temp Pulse Resp BP Pulse Ox
97.4 F 112 16 141/81 96
11/30/23 11:09 11/30/23 11:09 11/30/23 11:09 11/30/23 11:09 11/30/23 11:09
Intake and Output
11/29/23 11/30/23 12/01/23
06:59 06:59 06:59
Intake Total 1060 / 1060 1050 / 1050
Balance 1060 / 1060 1050 / 1050
SaO2 96
Nasal Cannula flow liters per 2
minute
Physical Exam
General: Respiratory Distress (n), Comfortable, Poor Appetite and Other (thin appearing, weak)
HEENT: Normocephalic, Anicteric and Moist Mucous Membranes
Cardiovascular: S1-S2 and Regular Rhythm
Respiratory: Clear (Decreased breath sounds left base), Wheeze (n), Crackles (Left basilar), Rhonchi (n), Non-Labored Respirations, Accessory Resp Muscle Use (n), Stridor (n) and Chest Tube (L sided ASEPT)
GI: Soft, Non Distended and Non Tender
Neurology: AO x 3 and No Motor Deficits
Skin: Warm, Good Color, Cyanosis (n), Jaundice (n) and Rash (n)
Labs/Micro/Reports
Lab Data
11/28/23 07:02
11/30/23 07:43
Microbiology
11/29/23 17:14 Pleural Fluid Gram Stain - Preliminary
11/25/23 08:22 Pleural Fluid Body Fluid Culture - Final
No Growth After 72 Hours
11/25/23 08:22 Pleural Fluid Gram Stain - Final
--- NOTE | 2023-11-30 12:21 | W.PN.HOSP.TC ---
Today's Communication/Plan
-
dc IV lasix
po regimen
OP bmp
DC home once OP set up completed.
Assessment / Plan
Assessment / Plan
#Recurrent exudative left pleural effusion
#Acute hypoxemic respiratory insufficiency -- (RESOLVED)
-Unclear etiology, has had multiple thoracentesis over the last year
-Only 1 set of fluid studies that show transudative effusion, no signs of malignancy
-CT C/A/P showed stable lymphadenopathy, no new masses or signs of malignancy
-Fluid studies showed Lights criteria positive; cell counts and glucose WNL; culture negative
-Remains on room air comfortably
-Follow-up pleural fluid cytology
-IV Lasix with albumin-discontinued.
-Incentive spirometer, monitor respiratory status
-IRAD consulted -s/p Asept catheter placement on 11/28. Family thought about maintenance. VN c/s too.
-Abd US to assess for ascites-negative for ascites.
-Pulm following
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
#H/O Takotsubo cardiomyopathy
-Suspicion is fairly high for restrictive cardiomyopathy versus potentially constrictive disease
-Echocardiogram showed preserved EF, abnormal GLS with grade III Diastolic dysfunction
-Transition Lasix IV/albumin-switched to po lasix home regimen 40mg BID.
-Cardiology sent amyloid workup yesterday. Recent OP work up was found to be negative.
-Can consider Cardiac MRI as outpatient
-Continue beta-pasha for GDMT
-Follow-up SPEP/UPEP + ALEKS, light chains;
-Monitor volume status clinically, observe for improvement in exertional dyspnea
#ANNA likely 2/2 over diuresis
-DC IV Lasix.
-switch to po regimen.
-repeat BMP in 1 week with PCP.
#Nonischemic myocardial injury 2/2 acute heart failure
-No chest pain or ischemic ECG findings on admission
-Troponin trend not consistent with ACS, relatively flat
#Persistent atrial fibrillation
-Home medications include dofetilide, metoprolol tartrate, Eliquis
-Has had multiple cardioversions in the past with recurrence
#Hypertension Primary
- metoprolol and hydralazine
#Hyperlipidemia
-cont statin
#Chronic hyponatremia
-Possibly hypervolemic with her recurrent effusions
-Serum sodium baseline in the high 120s, 130 range
-Na 132.
-Will monitor daily BMP while here
#Celiac's disease
-Gluten-free diet
-No signs of flare
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
-States that she had a nephrotic syndrome when she was young, following infection with measles
-States that she had a lot of fluid build up in her stomach and legs at the time consistent with nephrosis
#Sick sinus syndrome s/p PPM (October 18)
DVT prophylaxis: Eliquis
CODE STATUS: Full code
d/w with cardiology
Anticipated Discharge: Today
Subjective/Interval History
-
Date of Service: November 30, 2023
states of pain at asept catheter site
sob has improved
on room air
Objective Data
-
Labs:
Laboratory Results
11/30/23
07:43
Sodium 132 L
Potassium 4.0
Chloride 97 L
Carbon Dioxide 26
BUN 36 H
Creatinine 1.2 H
Glucose 113 H
Calcium 8.2 L
Vital Signs:
Vital Signs
Temp Pulse Resp BP Pulse Ox
97.4 F 112 16 141/81 96
11/30/23 11:09 11/30/23 11:09 11/30/23 11:09 11/30/23 11:09 11/30/23 11:09
I&O
11/29/23 11/30/23 12/01/23
06:59 06:59 06:59
Intake Total 1060 / 1060 1050 / 1050
Balance 1060 / 1060 1050 / 1050
--- NOTE | 2023-11-30 12:22 | W.PN.CARDCBS ---
Addendum entered and electronically signed by Sukhdev Renner MD 11/30/23 18:10:
I saw and examined the patient.
The Butter Maker's note was reviewed and I agree with the note.
Comment: Briefly, 78-year-old woman past medical history of heart failure with preserved ejection fraction, recurrent left-sided pleural effusion now status post Pleurx catheter 11/29/2023, persistent atrial fibrillation on Tikosyn and prior
permanent pacemaker who presents in decompensated heart failure
With IV diuresis and placement of Pleurx catheter no longer requiring supplemental oxygen
Still appears mildly volume overloaded on exam, but with presence of the Pleurx she will be more prone to dehydration
With rising Cr ok to transition to PO lasix 40mg BID and discharge on this dose
Atrial tachycardia noted here on telemetry
Increase Toprol in an attempt to improve her arrhythmia burden
May need alternative antiarrhythmic in the future, but okay to continue Tikosyn for now
Stable for discharge from my perspective, outpatient follow-up has been arranged
Original Note:
Today's Communication / Plan
-
drainage of pleural catheter per pulm recs
likely po lasix 60mg BID upon DC
BMP early next week
compression stockings
increase toprol to 25mg HS
would consider transition of tikosyn to amiodarone or AVJ ablation, defer to EP to discuss OP
OP cardiac follow up arranged
Impression / Plan
-
PCP: Stella Sutherland PA-C
Supervisor Assembly Stock: Dr. Kiera Diaz
Impression:
Presented with SOB
Acute on chronic HFpEF
Recurrent left-sided pleural effusion
s/p thoracentesis 05/18/2023 w/ 750 cc removed
s/p thoracentesis 09/27/2023 w/ 1500 cc removed
s/p thoracentesis 10/20/2023 w/ 1450 cc removed
s/p thoracentesis 11/18/2023 w/ 1500 cc removed
s/p thoracentesis 11/25/2023 w/ 1700 cc removed
s/p L Asept pleural catheter placement 11/29/23
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
Hyponatremia
Elevated troponin, suspect nonischemic myocardial injury
Persistent atrial fibrillation
Prior PVI (2016)
s/p PFA 08/24/23
Maintained on Tikosyn
Chronic anticoagulation on Eliquis
Takotsubo CM w/recovered EF (2005)
HLD
HTN
MR
Renal nephrosis
Vertigo Edema
Lung Nodule (2021, stable)
Anemia
Hyponatremia
LE cellulitis (05/14/23)
Echo 05/18/2023: EF 69%, stage II diastolic dysfunction. Moderately dilated right atrium. Mild to moderate MR. Mild TR. PAP 36 mmHg. Small pericardial effusion
Echo 11/25/2023: EF 55-60%, global longitudinal strain is -14.2, stage III diastolic dysfunction, mild MR, dilated left atrium, aortic sclerosis, normal RV, pulmonary artery systolic pressure 45-50 mmHg
Plan:
-complex case
-She presented with shortness of breath. She has had multiple admissions for recurrent left pleural effusion with 5+ thoracenteses and acute heart failure in the last 6 months.
-Status post L thoracentesis for 1700 cc 11/25/2023. Repeat CXR 11/26 w/ reaccumulation of effusion, moderate. Review of pleural fluid 11/24 appears to be exudative, previously was transudative. concern for trapped lung physiology. s/p L asept pleural
catheter placement 11/28. currently having catheter drained at bedside
-she remains with evidence of volume overload on exam, however Cr bumped to 1.2 today. dry weight previously felt to be 122 pounds, if accurate, presently 132 pounds. if transitioning to po lasix, was on 40mg BID prior to admission. consider placing
on po lasix 60mg BID for now and can reassess as OP
-will need BMP early next week upon DC
-compression stockings as remains with LE edema
-device check 11/27 with 4.5% afib burden, however unclear if device undersensing true burden. at time of last ablation 08/2023 was noted to have multiple irregular, and unmappable atrial tachycardias. on review of tele overnight, she has frequent
paroxysms of atach. currently on tikosyn 125mcg Q12H, CrCl ~40, QTc 510ms by EKG 11/23, 468 ms on 11/28. Based on underlying kidney disease, unclear if can be uptitrated. Given breakthrough, would consider transitioning to amiodarone if no
contraindication, will discuss with her primary EP when able. in interim, will increase toprol to 25mg HS
-Would also consider for AVJ ablation given patient already has pacemaker in place
-continue BB, hydralazine. spironolactone added this admission. No SGLT2 inhibitor due to h/o UTI.
-Previously had pyrophosphate scan which was negative for amyloid. Repeat amyloid blood tests drawn 11/26. May consider OP cardiac MRI.
-OP cardiac follow up arranged
HPI: Gabriela is an 78 year old female with PMH of symptomatic bradycardia s/p PPM, chronic HFpEF, persistent atrial fibrillation, takotsubo CM, recurrent L pleural effusion, HTN, HLD, MR, and chronic anemia. She presented to [facility] for evaluation
of worsening SOB. She has had multiple recent left sided thoracenteses, most recently 11/17. She noticed increased SOB in AM 11/23 as well as a cough. She called the cardiology office and was recommended to come to ER for evaluation. In ER, she was
found to have recurrent L pleural effusion as well as evidence of acute heart failure with proBNP 3930. She was admitted and started on IV lasix. This AM, she had another thoracentesis with 1700 cc removed. Fluid studies pending. Cardiology
consulted for evaluation given acute heart failure exacerbation. She reports feeling improved following thoracentesis.
Progress Note - Supervisor Assembly Stock
Subjective
Date of Service: November 30, 2023
currently undergoing pleural catheter drainage
Objective
Labs:
11/28/23 07:02
11/30/23 07:43
Labs
Hgb 9.7 g/dL (12.0-16.0) L 11/28/23 07:02
Hct 29.0 % (37.0-47.0) L 11/28/23 07:02
Plt Count 461 10^3/uL (130-400) H D 11/28/23 07:02
Sodium 132 mmol/L (135-145) L 11/30/23 07:43
Potassium 4.0 mmol/L (3.5-5.1) 11/30/23 07:43
BUN 36 mg/dl (7-17) H 11/30/23 07:43
Creatinine 1.2 mg/dL (0.6-1.0) H 11/30/23 07:43
Glucose 113 mg/dl (70-99) H 11/30/23 07:43
Vital Signs and I&O:
Vital Signs
Temp Pulse Resp BP Pulse Ox
97.4 F 112 16 141/81 96
11/30/23 11:09 11/30/23 11:09 11/30/23 11:09 11/30/23 11:09 11/30/23 11:09
Vital Signs
Temp Pulse Resp BP Pulse Ox
97.4 F 112 16 141/81 96
11/30/23 11:09 11/30/23 11:09 11/30/23 11:09 11/30/23 11:09 11/30/23 11:09
Intake & Output
11/28/23 11/29/23 11/30/23 12/01/23
07:59 07:59 07:59 07:59
Intake Total 820 / 820 1060 / 1060 1050 / 1050
Balance 820 / 820 1060 / 1060 1050 / 1050
--- NOTE | 2023-11-30 12:26 | PN.IRAD.UPD ---
Update Note - IRAD
- -
800 ML clear yellow pleural fluid removed via left ASEPT catheter at bedside. New , clean, dry dressing placed over site. Patient tolerated procedure well.
--- NOTE | 2023-11-30 13:18 | VNURNOTE ---
Spoke w/Dara at [facility]. Per Dara, [facility] arranges supply ordering d/t insurance. She stated a shipment usually takes 1-4 days. Confirmed w/IR that patient provided starter pack of 4 bottles/kits. Spoke w/rep David at [facility], requested an extra
bottle or 2 back up in case shipment would be delayed (drainage ordered as daily x 1 wk). David will check, may be able to supply a few back up bottles/kits. He will follow up /confirm w/ this author tomorrow. CM updated. [facility] Intake aware pt DC
today. [facility] set up for tomorrow start.
--- NOTE | 2023-11-30 14:11 | CM ---
CM advised that pleurex supplies have been secured and [facility] will be providing home care services. Dr. Wesley made aware of same and plans to discharge today.
Plan: Discharge to home with [facility]
[2023-11-30] MEDS: ULTRAM 50 MG PO (14:45)
--- NOTE | 2023-11-30 15:13 | W.DCSUMMARY ---
Discharge Summary
Discharge Data
Date of Admission: 11/24/23
Date of Discharge: 11/30/23
-
Pending Results: Yes
Additional Pending Results:
Pleural fluid cytology results for pulmonary
Hospital Course
78-year-old female past medical history of atrial fibrillation status post ablation status post cardioversion, primary hypertension, hyperlipidemia, chronic hyponatremia, celiac disease, chronic HFrEF, history of Takotsubo cardiomyopathy, history of
pleural effusions, sick sinus syndrome status post pacemaker implantation who is presenting from home with complaint of shortness of breath. Patient was found in acute hypoxic respiratory insufficiency. Patient underwent imaging studies was found
to have pleural effusion status post thoracentesis. Patient has extensive workup done as outpatient in regards for amyloidosis cardiomyopathy. Patient with history of multiple thoracentesis secondary to pleural effusion. Pulmonary and cardiology
was consulted. Patient was started on IV Lasix. Patient agreed for placement of ASept catheter placement. IV Lasix was eventually transition to p.o. home regimen of 40 mg twice daily. Patient with improvement in symptomology and shortness of
breath improved. Patient was off oxygen and was stable on room air. Patient Toprol dose was increased to 25 mg nightly and Aldactone was added by cardiology. Patient with mild bump in creatinine expected with aggressive diuresis. Plan was for
repeat blood work later in the week. Patient was recommended to follow-up with cardiology and pulmonary as outpatient. VN was ordered. Pulmonary will be following and managing patient's ASept catheter as outpatient.
Discharge Plan
-
Patient Disposition: Home with Home Care
Discharge Diagnosis/Procedures: Recurrent left-sided pleural effusion
Acute hypoxic respiratory insufficiency
Acute on chronic HFpEF
Status post thoracentesis
Status post Asept catheter placement
Acute kidney injury
Nonischemic myocardial injury
Condition: Fair
Diet: 2 Gram Sodium and Restrict fluids to 48 oz
Activity: As tolerated
Driving Restrictions: As prior to admission
Blood Work: BMP 12/05/23
Other Services: VN
Specialty Instructions: Weigh Daily- Call MD for wt gain/loss 3 lbs overnight/5 lbs in 1 week
Instructions: *DCA Heart Failure Instructions
Referrals:
Orquidea Storey PA-C [Specified Professional Personl] - 12/07/23 9:00 am (You have a follow up visit with Dr. Qureshi's Orquidea MALONE, at the [place] office. Please call with questions. )
Ollie Castellanos MD [Active] - (As scheduled 12/14/2023. Follow-up pleural fluid cytology results with pulmonary)
Robb Rubio MD [Family Provider] - in less than 1 week
Prescriptions:
New
spironolactone 25 mg Tablet
12.5 mg PO DAILY 30 Days Qty: 15 0RF
metoprolol succinate 25 mg Tablet Extended Release 24 Hr
25 mg PO HS 30 Days Qty: 30 0RF
tramadol 50 mg tablet
50 mg PO DAILY PRN (Reason: severe pain) Qty: 5 0RF
Continued
hydralazine 25 mg Tablet
25 mg PO BID
aspirin 81 mg Tablet,Delayed Release (Dr/Ec)
81 mg PO HS
potassium chloride 20 mEq Tablet,Er Particles/Crystals
20 meq PO DAILY
ezetimibe [Zetia] 10 mg Tablet
10 mg PO DAILY
pitavastatin calcium [Livalo] 1 mg Tablet
1 mg PO MOWEFR
Eliquis 2.5 mg Tablet
2.5 mg PO BID
dofetilide 125 mcg capsule
125 mcg PO Q12H Qty: 180 3RF
furosemide 40 mg Tablet
40 mg PO BID AT 0800,1600 Qty: 60 0RF
Calcium And Magnesium
1 tab PO HS
Discontinued
metoprolol succinate 25 MG tablet extended release 24 hr
12.5 mg PO HS
Discharge Orders:
Discharge Patient (As Directed); Ordered 11/30/23
Ordered By: Hernando Wesley
Discharge Date and Time
Discharge Date/Time: 11/30/23 17:01
Print Language: IVORIAN
--- NOTE | 2023-11-30 15:45 | W.PA-PDMP ---
[place]-PDMP
-
Checked the [place]- Prescription Drug Monitoring Program website, no red flags identified; safe to proceed with prescription.
[2023-11-30 15:48] VITALS: BP 113/66
--- NOTE | 2023-11-30 15:55 | VNURNOTE ---
2 extra Asept bottles/kits provided to pt at bedside
== END 2023-11-30 17:01 | disposition home health service (06) | DRG 291 ==
LOC: 4 EAST ACU 18:46
PROVIDERS: Physician Assistant Medical; Radiology Vascular & Interventional Radiology; ADMITTING PHYSICIAN Internal Medicine; ATTENDING PHYSICIAN Hospitalist; CONSULT PHYSICIAN Internal Medicine Critical Care Medicine; EMERGENCY PHYSICIAN Student in an Organized Health Care Education/Training Program; FAMILY PHYSICIAN Internal Medicine; OTHER PHYSICIAN Internal Medicine Cardiovascular Disease
PROC: 0W9B3ZX Drainage of Left Pleural Cavity, Percutaneous Approach, Diagnostic (ICD-10-PCS; 2023-11-25)
DX: I11.0 Hypertensive heart disease with heart failure (principal); I50.33 Acute on chronic diastolic (congestive) heart failure; J91.8 Pleural effusion in other conditions classified elsewhere; E85.4 Organ-limited amyloidosis; E87.1 Hypo-osmolality and hyponatremia; N17.9 Acute kidney failure, unspecified; I48.19 Other persistent atrial fibrillation; I27.20 Pulmonary hypertension, unspecified; J43.2 Centrilobular emphysema; I08.1 Rheumatic disorders of both mitral and tricuspid valves; D64.9 Anemia, unspecified; I49.5 Sick sinus syndrome; I5A Non-ischemic myocardial injury (non-traumatic); E88.09 Other disorders of plasma-protein metabolism, not elsewhere classified; I43 Cardiomyopathy in diseases classified elsewhere; Z79.01 Long term (current) use of anticoagulants; E78.5 Hyperlipidemia, unspecified; I25.2 Old myocardial infarction; I25.10 Atherosclerotic heart disease of native coronary artery without angina pectoris; K90.0 Celiac disease; R91.1 Solitary pulmonary nodule; R09.02 Hypoxemia; R06.89 Other abnormalities of breathing; Z86.79 Personal history of other diseases of the circulatory system; Z86.19 Personal history of other infectious and parasitic diseases; Z88.0 Allergy status to penicillin; Z88.1 Allergy status to other antibiotic agents; Z88.8 Allergy status to other drugs, medicaments and biological substances; Z79.899 Other long term (current) drug therapy; Z87.891 Personal history of nicotine dependence; Z95.0 Presence of cardiac pacemaker; Z82.49 Family history of ischemic heart disease and other diseases of the circulatory system
CPT/HCPCS: 88305; 32550; 32555; 71045; 71046; 71260; 74177; 75989; 76705; 80048; 80053; 82043; 82150; 82570; 82784; 82945; 83521; 83615; 83735; 83880; 83986; 84100; 84155; 84156; 84157; 84165; 84478; 84484; 85025; 85027; 86334; 86335; 87015; 87070; 87205; 88112; 89051; 93005; 93306; 93356; 96374; 97116; 97162; 97166; 97530; 97535; 99152; 99153; 99285; C1729; C1769; P9047; Q9967

== ENCOUNTER → 2023-12-05 10:04 | Outpatient (REF) | payer MEDICARE, OTHER, SELFPAY ==
[2023-12-05 11:12] LABS: Blood Urea Nitrogen 42 mg/dl (7-17); Calcium 8.2 mg/dl (8.4-10.2); Carbon Dioxide 28 mmol/L (22-30); Chloride 96 mmol/L (98-107); Glucose 107 mg/dl (70-99); Potassium 3.6 mmol/L (3.5-5.1); Sodium 134 mmol/L (135-145)
== END ==
LOC: REG 10:04
PROVIDERS: ATTENDING PHYSICIAN Internal Medicine; OTHER PHYSICIAN Internal Medicine Cardiovascular Disease; OTHER PHYSICIAN Internal Medicine Critical Care Medicine; REFERRING PHYSICIAN Internal Medicine Cardiovascular Disease
DX: I50.9 Heart failure, unspecified (principal)
CPT/HCPCS: 36415; 80048

== ENCOUNTER 2023-12-21 20:25 | Emergency (ER) | payer MEDICARE, OTHER, SELFPAY ==
[2023-12-21 20:27] VITALS: BP 144/74
--- NOTE | 2023-12-21 21:06 | ED.GENMED ---
History of Present Illness
General
Chief Complaint: Catheter/Tube Problem
Source: patient and family
Time Seen by Provider: 12/21/23 20:52
History of Present Illness
History of Present Illness:
78-year-old female presents for evaluation of her left pleural drain. She states that dressing was placed by a different home care nurse today and it was bothering her. She was advised to take it off and when she took off the dressing to look at
it it came uncoiled. She became concerned. She otherwise denies any symptoms. She denies shortness of breath or fevers. No drainage. She states she just did not know what to do and was concerned that it could get pulled out later tonight.
Past History
Past History
ED Past Medical History: Arrthythmia (atrial fib-no anticoags), CAD, CHF, HTN, Hypercholesterolemia, [place], Psychiatric (Depression) and Other (Back and neck pain, Migraines, Celiac disease, Anemia, Miscarrage X 3)
ED Past Surgical History: Cardiac (ablations, Cardioversion) and Other (Hernia repair bilateral, Left breast lumpectomy)
Social History
Tobacco: Former smoker
Alcohol: None
Personal:
Living: alone
Employment: Retired
Phy Exam
Physical Exam
Physical Exam:
CONSTITUTIONAL Vital signs reviewed, Patient alert and oriented to person, place and time. Well-appearing
HEAD atraumatic, normocephalic.
EYES eyelids normal to inspection, Extraocular muscles intact, Conjunctiva normal, Sclera normal.
NECK normal range of motion, Trachea midline, no jugular venous distention.
RESP no respiratory distress, left chest wall pleural catheter is assessed. Is sutured in place. There is no gross redness or drainage. No bleeding. Tube looks as expected
BACK No obvious deformities
UPPER EXTREMITY Gross Range of motion normal, gross motor strength normal
LOWER EXTREMITY Gross range of motion normal, Gross motor strength normal
NEURO Speech normal, No focal motor deficits include, [place] coma scale 15, Memory normal, Cranial Nerves intact to screening exam.
SKIN Skin warm, dry, and normal in color.
Course
Vital Signs
Initial and Last Documented VS:
Initial Vital Signs
Temp Pulse Resp BP Pulse Ox
97.5 F 73 16 144/74 97
12/21/23 20:27 12/21/23 20:27 12/21/23 20:27 12/21/23 20:27 12/21/23 20:27
Last Documented Vital Signs
Temp Pulse Resp BP Pulse Ox
97.5 F 73 16 144/74 97
12/21/23 20:27 12/21/23 20:27 12/21/23 20:27 12/21/23 20:27 12/21/23 20:27
MDM/Problems Addressed
MDM/Problems Addressed:
Pleural catheter assessment
*Pulse Oximetry
Patient hypoxic: no
*Critical Care Note
Total Time (30-74mins, 75-104mins- exclusive of procedures): Not Applicable
Data Reviewed
Source: patient and family
Patient Management
Escalation/DeEscalation of care consider admission/obs:
Tube essentially became uncoiled. It is sutured in place and is not movable. Looks well. Dressings applied by RN. Patient reassured
ED Attending Note
-
Portions of this chart may have been created with voice recognition software.� Occasional wrong word or��sound alike� substitutions may have occurred due to the inherent limitations of voice recognition software.
Discharge Plan
Departure
Patient Disposition: Home (Routine Discharge)
Date of Disposition: 12/21/23
Time of Disposition: 21:06
Patient with high blood pressure during this ER visit?: No
Discharge Problem:
catheter assessment
Prescriptions:
No Action
hydralazine 25 mg Tablet
25 mg PO BID
aspirin 81 mg Tablet,Delayed Release (Dr/Ec)
81 mg PO HS
potassium chloride 20 mEq Tablet,Er Particles/Crystals
20 meq PO DAILY
ezetimibe [Zetia] 10 mg Tablet
10 mg PO DAILY
pitavastatin calcium [Livalo] 1 mg Tablet
1 mg PO MOWEFR
Eliquis 2.5 mg Tablet
2.5 mg PO BID
dofetilide 125 mcg capsule
125 mcg PO Q12H Qty: 180 3RF
furosemide 40 mg Tablet
40 mg PO BID AT 0800,1600 Qty: 60 0RF
Calcium And Magnesium
1 tab PO HS
spironolactone 25 mg Tablet
12.5 mg PO DAILY 30 Days Qty: 15 0RF
metoprolol succinate 25 mg Tablet Extended Release 24 Hr
25 mg PO HS 30 Days Qty: 30 0RF
tramadol 50 mg tablet
50 mg PO DAILY PRN (Reason: severe pain) Qty: 5 0RF
Referrals:
Robb Rubio MD [Family Provider] -
Activity Restrictions/Additional Instructions:
Return for shortness of breath, dysfunction of the tube, drainage from the tube area, bleeding or any other concerns. Please follow-up as planned by your doctor
Interventions
Interventions:
*Risk Screen - Suicide Last Done: 12/21/23 20:27
*Neglect/Abuse Screening Last Done: 12/21/23 20:27
GK-Qchoqs-Loeakuxzah Assessment Last Done: 12/21/23 20:44
Discharge Date and Time
Print Language: ROMANIAN
== END 2023-12-21 21:20 | disposition home or self-care (01) ==
LOC: EMR 20:25
PROVIDERS: EMERGENCY PHYSICIAN Emergency Medicine; FAMILY PHYSICIAN Internal Medicine
DX: Z46.82 Encounter for fitting and adjustment of non-vascular catheter (principal); I48.91 Unspecified atrial fibrillation; I25.10 Atherosclerotic heart disease of native coronary artery without angina pectoris; I11.0 Hypertensive heart disease with heart failure; I50.9 Heart failure, unspecified; E78.00 Pure hypercholesterolemia, unspecified; Z87.891 Personal history of nicotine dependence
CPT/HCPCS: 99282

== ENCOUNTER → 2024-03-19 10:36 | Outpatient (REF) | payer MEDICARE, OTHER, SELFPAY ==
[2024-03-19 11:58] LABS: NT-proBNP 2760 pg/ml
[2024-03-19 12:10] LABS: Albumin 2.2 g/dl (3.5-5.0)
[2024-03-19 12:13] LABS: ALT (SGPT) 21 U/L (0-35); AST (SGOT) 34 U/L (14-36); Albumin 2.2 g/dl (3.5-5.0); Alkaline Phosphatase 176 U/L (38-126); Blood Urea Nitrogen 26 mg/dl (7-17); Calcium 8.2 mg/dl (8.4-10.2); Carbon Dioxide 28 mmol/L (22-30); Chloride 98 mmol/L (98-107); Glucose 92 mg/dl (70-99); Iron 50 ug/dl (37-170); Potassium 3.6 mmol/L (3.5-5.1); Sodium 132 mmol/L (135-145); Total Bilirubin 0.3 mg/dl (0.2-1.3); Total Protein 6.2 g/dl (6.3-8.2)
[2024-03-19 12:23] LABS: Percent Saturation 39 % (20-50); Total Iron Binding Capacity 127 ug/dl (265-497)
[2024-03-19 12:24] LABS: Prealbumin (Transthyretin) 7.8 mg/dl (17.6-36.0)
[2024-03-19 12:25] LABS: IgA 701 mg/dl (70-400)
[2024-03-19 13:23] LABS: Folate > 20.0 ng/ml (2.76-20); Vitamin B12 623 pg/ml (239-931)
[2024-03-21 01:30] LABS: Endomysial IgA Antibody Titer <1:10 (<1:10)
== END ==
LOC: REG 10:36
PROVIDERS: ATTENDING PHYSICIAN Specialist; FAMILY PHYSICIAN Internal Medicine; OTHER PHYSICIAN Internal Medicine Cardiovascular Disease; REFERRING PHYSICIAN Physician Assistant
DX: K90.0 Celiac disease (principal); I50.30 Unspecified diastolic (congestive) heart failure
CPT/HCPCS: 36415; 80053; 82040; 82607; 82728; 82746; 82784; 83516; 83540; 83550; 83880; 84134; 86231; 86364

== ENCOUNTER → 2024-04-02 15:24 | Outpatient (REF) | payer MEDICARE, OTHER, SELFPAY ==
[2024-04-02 16:45] LABS: ALT (SGPT) 21 U/L (0-35); AST (SGOT) 37 U/L (14-36); Albumin 2.1 g/dl (3.5-5.0); Alkaline Phosphatase 159 U/L (38-126); Blood Urea Nitrogen 26 mg/dl (7-17); Carbon Dioxide 21 mmol/L (22-30); Chloride 101 mmol/L (98-107); Glucose 145 mg/dl (70-99); Potassium 4.6 mmol/L (3.5-5.1); Sodium 127 mmol/L (135-145); Total Bilirubin < 0.1 mg/dl (0.2-1.3); Total Protein 5.8 g/dl (6.3-8.2); eGFR 50.48
== END ==
LOC: RAD 15:24
PROVIDERS: ATTENDING PHYSICIAN Internal Medicine; OTHER PHYSICIAN Internal Medicine Cardiovascular Disease; REFERRING PHYSICIAN Internal Medicine Cardiovascular Disease
DX: I60.9 Nontraumatic subarachnoid hemorrhage, unspecified (principal); E88.09 Other disorders of plasma-protein metabolism, not elsewhere classified; J90 Pleural effusion, not elsewhere classified
CPT/HCPCS: 36415; 71046; 80053

== ENCOUNTER → 2024-04-10 13:22 | Outpatient (REF) | payer MEDICARE, OTHER, SELFPAY ==
[2024-04-10 14:52] LABS: ALT (SGPT) 19 U/L (0-35); AST (SGOT) 34 U/L (14-36); Albumin 2.1 g/dl (3.5-5.0); Alkaline Phosphatase 140 U/L (38-126); Blood Urea Nitrogen 28 mg/dl (7-17); Calcium 8.1 mg/dl (8.4-10.2); Carbon Dioxide 25 mmol/L (22-30); Chloride 99 mmol/L (98-107); Glucose 100 mg/dl (70-99); Potassium 3.7 mmol/L (3.5-5.1); Sodium 129 mmol/L (135-145); Total Bilirubin 0.4 mg/dl (0.2-1.3); Total Protein 5.9 g/dl (6.3-8.2)
== END ==
LOC: REG 13:22
PROVIDERS: ATTENDING PHYSICIAN Physician Assistant; FAMILY PHYSICIAN Internal Medicine; REFERRING PHYSICIAN Internal Medicine Cardiovascular Disease
DX: I50.30 Unspecified diastolic (congestive) heart failure (principal)
CPT/HCPCS: 36415; 80053

== ENCOUNTER → 2024-05-01 10:17 | Outpatient (REF) | payer MEDICARE, OTHER, SELFPAY ==
[2024-05-01 11:08] LABS: % Basophils 0.6 % (0-2); % Eosinophils 0.7 % (0-6); % Immature Granulocytes 0.4 % (0-0.5); % Lymphocytes 19.9 % (20.5-51.1); % Monocytes 6.3 % (1.7-9.3); % Neutrophils 72.1 % (42.2-75.2); Absolute Basophils 0.1 10^3/uL (0-0.2); Absolute Eosinophils 0.1 10^3/uL (0-0.7); Absolute Lymphocytes 1.6 10^3/uL (1.2-3.4); Absolute Monocytes 0.5 10^3/uL (0.1-0.6); Absolute Neutrophils 5.8 10^3/uL (1.4-6.5); Hematocrit 26.5 % (37.0-47.0); Hemoglobin 8.6 g/dL (12.0-16.0); Mean Corp Hgb Conc. 32.5 g/dL (33.0-37.0); Mean Corpuscular Hgb 36.3 pg (27.0-31.0); Mean Corpuscular Volume 111.8 fL (81.0-99.0); Mean Platelet Volume 10.7 fL (7.4-10.4); Nucleated Red Blood Cells % 0 %; Platelet Count 331 10^3/uL (130-400); Red Blood Cell Count 2.37 10^6/uL (4.20-5.40); White Blood Cell Count 8.1 10^3/uL (4.8-10.8)
[2024-05-01 11:39] LABS: ALT (SGPT) 26 U/L (0-35); AST (SGOT) 43 U/L (14-36); Albumin 2.1 g/dl (3.5-5.0); Alkaline Phosphatase 136 U/L (38-126); Blood Urea Nitrogen 39 mg/dl (7-17); Carbon Dioxide 31 mmol/L (22-30); Chloride 97 mmol/L (98-107); Glucose 103 mg/dl (70-99); Magnesium 2.1 mg/dl (1.6-2.3); Potassium 4.2 mmol/L (3.5-5.1); Sodium 130 mmol/L (135-145); Total Bilirubin 0.3 mg/dl (0.2-1.3); Total Protein 5.6 g/dl (6.3-8.2); eGFR 50.48
[2024-05-01 11:43] LABS: NT-proBNP 1420 pg/ml
[2024-05-01 12:41] LABS: Free T4 0.81 ng/dl (0.78-2.19)
== END ==
LOC: REG 10:17
PROVIDERS: ATTENDING PHYSICIAN Internal Medicine Cardiovascular Disease; FAMILY PHYSICIAN Internal Medicine; OTHER PHYSICIAN Internal Medicine Cardiovascular Disease
DX: Z86.79 Personal history of other diseases of the circulatory system (principal); R53.82 Chronic fatigue, unspecified; R79.89 Other specified abnormal findings of blood chemistry; I50.30 Unspecified diastolic (congestive) heart failure; I70.0 Atherosclerosis of aorta; R91.1 Solitary pulmonary nodule
CPT/HCPCS: 36415; 80053; 83735; 83880; 84439; 84443; 85025

== ENCOUNTER 2024-05-10 06:25 | Day surgery (SDC) | payer MEDICARE, OTHER, SELFPAY ==
[2024-05-10 08:10] VITALS: BMI 22.3
[2024-05-10 08:16] VITALS: BMI 22.3
[2024-05-10 08:32] VITALS: BP 123/73
[2024-05-10 10:30] VITALS: BP 89/56
[2024-05-10 10:46] VITALS: BP 125/62
[2024-05-10 11:00] VITALS: BP 125/59
== END 2024-05-10 11:20 | disposition home or self-care (01) ==
LOC: SDS 06:25
PROVIDERS: ATTENDING PHYSICIAN Specialist
DX: K90.0 Celiac disease (principal); K29.70 Gastritis, unspecified, without bleeding; K29.50 Unspecified chronic gastritis without bleeding; K76.6 Portal hypertension; K31.89 Other diseases of stomach and duodenum
CPT/HCPCS: 43239; 88305; 88342

== ENCOUNTER 2024-05-22 22:53 | Inpatient (IN) | payer MEDICARE, OTHER, SELFPAY ==
[2024-05-22] VITALS (11 sets, daily range): BP systolic 106–150; BP diastolic 51–75; BMI 23.4; BMI 22.3
--- NOTE | 2024-05-22 19:42 | ED.GENMED ---
History of Present Illness
General
Chief Complaint: Breathing Problem
Source: patient and family
Exam Limitations: none
Time Seen by Provider: 05/22/24 19:01
Nursing documentation reviewed up to this point in time: agreed with
History of Present Illness
History of Present Illness:
79-year-old female with history as documented notable for hypertension, hyperlipidemia, CHF, A-fib on Eliquis, pacemaker who presents to the ER referred by her change attendant for shortness of breath and edema. Patient reports that she has had chronic
but worsening dyspnea and edema over the past few weeks. She says she really has had shortness of breath above her baseline since February when she had an admission for CHF at [facility]. She has been on spironolactone and torsemide for diuresis and is
on a fluid restriction but despite this has had worsening symptoms. Saw her change attendant today (Dr. Kiera Diaz) who referred to the hospital. She has chronic cough unchanged. She denies any chest pain. She denies any other complaints.
Reports compliance with medications.
Past History
Past History
ED Past Medical History: Arrthythmia (atrial fib-no anticoags), CAD, CHF, HTN, Hypercholesterolemia, [place], Psychiatric (Depression) and Other (Back and neck pain, Migraines, Celiac disease, Anemia, Miscarrage X 3)
ED Past Surgical History: Cardiac (ablations, Cardioversion) and Other (Hernia repair bilateral, Left breast lumpectomy)
Social History
Tobacco: Former smoker
Alcohol: None
Personal:
Living: alone
Employment: Retired
Review of Systems
Review of Systems
All Other Systems: ROS reviewed and negative except as documented in HPI and ROS
Constitutional: Reports weight gain
Respiratory: Reports cough and trouble breathing
Cardiac: Denies chest pain
ABD/GI: Denies abdominal pain
Musculoskeletal: Reports edema
Neurological: Denies dizzy or headache
Phy Exam
Physical Exam
Physical Exam:
General: Awake, alert, oriented x3; cachectic no acute distress
Head: Normocephalic, atraumatic
Eyes: Conjunctiva normal, EOMI
Throat: Airway intact, handling secretions
Neck: Trachea midline, JVD
Lungs: Rales noted at lung bases bilaterally; acceptable respiratory rate and work of breathing
Heart: Regular rate and rhythm, no murmurs, gallops, or rubs
Abd: Soft, non distended, nontender; some abdominal wall edema noted
Neuro: No gross deficits
Extremities: Patient has significant edema in the legs bilaterally extending up the entire leg to the lower abdomen bilaterally
Scores
Heart Failure Risk
Heart Failure Risk Score: Not Applicable
Heart Score for Chest Pain Patients
STEMI patient?: Not applicable
Withdrawal Assessment of Alcohol
Withdrawal Assessment Completed?: Not applicable
Course
Orders/Labs/Results
Orders:
Orders
05/22/24 17:25
CR Chest - 2 Views Urgent
Comment:
Reason For Exam: SOB
05/22/24 17:26
Electrocardiogram (*1) Urgent
Reason for Study: Shortness of Breath
EKG- Treatment ONCE
05/22/24 19:44
Interrogate Pacemaker- Treatment ONCE
05/22/24 19:49
Complete Blood Count/With Diff Urgent
Comprehensive Metabolic Panel Urgent
Pro-BNP [NT-proBNP] Urgent
Prothrombin Time Urgent
Troponin I Urgent
Abnormal Lab Results
05/22/24
19:49
RBC 2.16 L 10^6/uL
(4.20-5.40)
Hgb 8.2 L g/dL
(12.0-16.0)
Hct 24.8 L %
(37.0-47.0)
MCV 114.8 H fL
(81.0-99.0)
MCH 38.0 H pg
(27.0-31.0)
RDW 18.6 H %
(11.5-14.5)
Sodium 130 L mmol/L
(135-145)
BUN 33 H mg/dl
(7-17)
Creatinine 1.1 H mg/dL
(0.6-1.0)
Glucose 127 H mg/dl
(70-99)
Calcium 7.7 L mg/dl
(8.4-10.2)
AST 40 H U/L
(14-36)
Alkaline Phosphatase 150 H U/L
(38-126)
Total Protein 5.8 L g/dl
(6.3-8.2)
Albumin 2.1 L g/dl
(3.5-5.0)
05/22/24 19:49
05/22/24 19:49
Vital Signs
Initial and Last Documented VS:
Initial Vital Signs
Temp Pulse Resp BP Pulse Ox
36.6 C 67 17 116/60 99
05/22/24 17:24 05/22/24 17:24 05/22/24 17:24 05/22/24 17:24 05/22/24 17:24
Last Documented Vital Signs
Temp Pulse Resp BP Pulse Ox
36.7 C 66 16 106/54 100
05/22/24 19:40 05/22/24 19:40 05/22/24 19:40 05/22/24 19:40 05/22/24 19:40
MDM/Problems Addressed
Differential Diagnosis Includes:
CHF, pneumonia, bronchitis
MDM/Problems Addressed:
79-year-old female presents with increased shortness of breath and leg swelling worsening over the past few weeks. Referred by change attendant for assessment. Vitals and exam as above�she appears to be in decompensated congestive heart failure. She
is on torsemide 20 mg daily as well as spironolactone 12.5 mg 3 times a week. Will plan to place an IV send labs including a CBC and a CMP, proBNP. Check chest x-ray and EKG. Monitor closely reassess after the above. Anticipate admission.
Labs reviewed: CBC shows chronic anemia with a hemoglobin of 8.2. CMP shows stable CKD creatinine 1.1. Troponin negative. proBNP is elevated at 1620. Chest x-ray reviewed by me shows bilateral pleural effusions cardiomegaly no charly edema.
Suspect acute CHF exacerbation. Dose with diuretic, admit for continued management. Discussed with hospitalist.
Chronic conditions affecting care:
CHF, A-fib
*Radiology
Radiology exam reviewed: preliminary read by ED provider and radiology read reviewed
*Pulse Oximetry
Patient hypoxic: no
*EKG
Interpreted by ED Provider?: Yes
Heart Rate: 70
Rate: normal
Rhythm: a-fib
[place]: normal axis
Interval: normal interval
QRS Pattern: normal QRS
Ischemia: other (Nonspecific ST and T wave abnormalities)
*Critical Care Note
Total Time (30-74mins, 75-104mins- exclusive of procedures): Not Applicable
Data Reviewed
Review of Other/Old Records Reveals: Records (Reviewed outpatient cardiology note)
Source: patient and records
Patient Management
Discussion with other providers: Hospitalist (Discussed with hospitalist)
Escalation/DeEscalation of care consider admission/obs:
Admission indicated
ED Attending Note
-
Portions of this chart may have been created with voice recognition software.� Occasional wrong word or��sound alike� substitutions may have occurred due to the inherent limitations of voice recognition software.
Discharge Plan
Departure
Discharge Problem:
CHF exacerbation
Prescriptions:
No Action
aspirin 81 mg Tablet,Delayed Release (Dr/Ec)
81 mg PO HS
potassium chloride 20 mEq Tablet,Er Particles/Crystals
20 meq PO DAILY
ezetimibe [Zetia] 10 mg Tablet
10 mg PO DAILY
pitavastatin calcium [Livalo] 1 mg Tablet
1 mg PO MOWEFR
Eliquis 2.5 mg Tablet
2.5 mg PO BID
Calcium And Magnesium
1 tab PO HS
torsemide 20 mg Tablet
20 mg PO DAILY
amiodarone 200 mg Tablet
200 mg PO DAILY
Vitamin C 1,000 mg Tablet Extended Release
1,000 mg PO DAILY
levothyroxine 50 mcg Tablet
100 mcg PO DAILY
vitamin B complex Tablet
1 tab PO DAILY
Fish Oil 1,000 mg Capsule
1 cap PO DAILY
cholecalciferol (vitamin D3) [Vitamin D3] 50 mcg (2,000 unit) Tablet
50 mcg PO DAILY
Centrum Ultra Women's 18-400 mg-mcg Tablet
1 tab PO DAILY
Tart [place] Extract 1,000 mg Capsule
1,000 mg PO DAILY
Hair, Skin and Nails (biotin) 10,000 mcg Tablet,Chewable
10,000 mcg PO DAILY
spironolactone 25 mg tablet
12.5 mg PO .MOWEFR
metoprolol succinate 25 mg tablet extended release 24 hr
25 mg PO DAILY
Referrals:
Robb Rubio MD [Family Provider] -
Interventions
Interventions:
*Risk Screen - Suicide Last Done: 05/22/24 17:24
*General Assessment Last Done: 05/22/24 17:24
*Neglect/Abuse Screening Last Done: 05/22/24 17:24
*ED COVID-19 Vaccine History Last Done: 05/22/24 17:24
Discharge Date and Time
Print Language: MOSOTHO
[2024-05-22 20:03] LABS: % Basophils 0.9 % (0-2); % Eosinophils 0.5 % (0-6); % Immature Granulocytes 0.5 % (0-0.5); % Lymphocytes 24.5 % (20.5-51.1); % Monocytes 6.2 % (1.7-9.3); % Neutrophils 67.4 % (42.2-75.2); Absolute Basophils 0.1 10^3/uL (0-0.2); Absolute Lymphocytes 1.6 10^3/uL (1.2-3.4); Absolute Monocytes 0.4 10^3/uL (0.1-0.6); Absolute Neutrophils 4.4 10^3/uL (1.4-6.5); Hematocrit 24.8 % (37.0-47.0); Hemoglobin 8.2 g/dL (12.0-16.0); Mean Corp Hgb Conc. 33.1 g/dL (33.0-37.0); Mean Corpuscular Volume 114.8 fL (81.0-99.0); Mean Platelet Volume 10.4 fL (7.4-10.4); Nucleated Red Blood Cells % 0 %; Platelet Count 325 10^3/uL (130-400); Red Blood Cell Count 2.16 10^6/uL (4.20-5.40); Red Cell Dist. Width 18.6 % (11.5-14.5); White Blood Cell Count 6.6 10^3/uL (4.8-10.8)
[2024-05-22 20:07] LABS: INR 1.03; PT 13.8 Sec (11.4-14.6)
[2024-05-22 20:20] LABS: ALT (SGPT) 21 U/L (0-35); AST (SGOT) 40 U/L (14-36); Albumin 2.1 g/dl (3.5-5.0); Alkaline Phosphatase 150 U/L (38-126); Blood Urea Nitrogen 33 mg/dl (7-17); Calcium 7.7 mg/dl (8.4-10.2); Carbon Dioxide 28 mmol/L (22-30); Chloride 98 mmol/L (98-107); Estimated Creatinine Clearance 36 ml/min; Glucose 127 mg/dl (70-99); Potassium 3.6 mmol/L (3.5-5.1); Sodium 130 mmol/L (135-145); Total Bilirubin 0.4 mg/dl (0.2-1.3); Total Protein 5.8 g/dl (6.3-8.2); eGFR 50.48
[2024-05-22 20:28] LABS: NT-proBNP 1620 pg/ml; Troponin I < 0.012 ng/ml
--- NOTE | 2024-05-22 21:02 | HPS.HSE ---
Family Physician
-
Family Physician: Kodak Rubio
Chief Complaint
-
Progressive shortness of breath, GILLIAM, edema from legs to upper abdomen
History of Present Illness
79-year-old female who states for approximately 12 weeks she has had progressive shortness of breath with dyspnea on exertion swelling to lower legs extending to upper legs and abdomen. She reports today she tried to put on a pair of dress pants
but was unable to button them due to her size of her abdominal girth. She was seen by her deicer repairer pneumatic in office and sent over for evaluation for congestive heart failure. She reports to me she has had abnormal LFTs he is due for outpatient
ultrasound. Her abdomen is distended on exam with diffuse tympany. She had recent EGD by Dr. Luis showing portal gastropathy. She has had persistent chronic anemia with unclear etiology. She had severely elevated TSH with normal free T4 and had
her levothyroxine increased to 100 mcg on 04/20/2024.
She has past medical history chronic heart failure preserved EF, Takotsubo cardiomyopathy with recovered EF 2005, recurrent exudative left-sided pleural effusions multiple thoracentesis 2023 no signs of malignancy, SSS status post Medtronic
permanent pacemaker October 2013, nonischemic myocardial injury, persistent A-fib status post PVI 2016, status post PFA 08/24/2023, CKD 3B, chronic macrocytic anemia, HLD, HTN, MR, celiac disease, chronic hyponatremia, nephrotic syndrome as child
following measles infection, pulmonary nodule 2021 stable, vertigo, lower extremity cellulitis 05/14/2023
Medical History
Past Medical History
Past Medical History: Reports Other
Additional Past Medical History:
Recurrent Left Pleural Effusion
Chronic HFpEF
Takotsubo CM w/recovered EF 2005
Sick Sinus Syndrome
Symptomatic Bradycardia
Persistent Atrial Fibrillation
Essential Hypertension
Chronic Hyponatremia
Lymphocytic Colitis
Celiac Disease
Past Surgical History: Reports Other
Additional Past Surgical History:
SSS/permanent Pacemaker 10/19/2023
Hernia Repair
Left Breast Lumpectomy
Social History
Tobacco: Former Smoker
Alcohol: None
Drug: None
Family History
Family History: Not pertinent
Allergies / Home Medications
Allergies reflects when Allergies were last updated in [facility].
Home Medications with original date entered in [facility]
Allergy/Medication List:
Allergies
Allergy/AdvReac Type Severity Reaction Status Date / Time
Antihistamines Allergy Rash Verified 05/22/24 17:23
Cephalosporins Allergy Rash Verified 05/22/24 17:23
hydrochlorothiazide Allergy Rash Verified 05/22/24 17:23
penicillin G Allergy Rash Verified 05/22/24 17:23
penicillin V Allergy Rash Verified 05/22/24 17:23
Penicillins Allergy Rash Verified 05/22/24 17:23
Home Medications
aspirin 81 mg tablet,delayed release 81 mg PO HS blood thinner 05/17/23
apixaban 2.5 mg tablet (Eliquis) 2.5 mg PO BID afib 07/19/23
ezetimibe 10 mg tablet (Zetia) 10 mg PO DAILY cholesterol 07/19/23
pitavastatin calcium 1 mg tablet (Livalo) 1 mg PO MOWEFR cholesterol 07/19/23
potassium chloride 20 mEq tablet,extended release(part/cryst) 20 meq PO DAILY Supplement 07/19/23
amiodarone 200 mg tablet 200 mg PO DAILY 05/10/24
ascorbic acid (vitamin C) 1,000 mg tablet,extended release (Vitamin C ER) 1,000 mg PO DAILY 05/10/24
cholecalciferol (vitamin D3) 50 mcg (2,000 unit) tablet (Vitamin D3) 25 mcg PO DAILY 05/10/24
levothyroxine 50 mcg tablet 100 mcg PO DAILY 05/10/24
metoprolol succinate 25 mg tablet,extended release 24 hr 25 mg PO DAILY 05/10/24
multivitamin-ferrous fumarate-folic acid 18 mg-400 mcg tablet 1 tab PO DAILY 05/10/24
omega-3 fatty acids-vitamin E 1,000 mg capsule 1 cap PO DAILY 05/10/24
sour monroe extract 1,000 mg capsule (Tart Monroe Extract) 800 mg PO DAILY 05/10/24
spironolactone 25 mg tablet 12.5 mg PO .MOWEFR Fluid retention/Swelling 05/10/24
torsemide 20 mg tablet 20 mg PO DAILY 05/10/24
vitamin B complex 1 tab PO DAILY 05/10/24
Calcium 600 600 mg PO BID 05/22/24
Hair,Nails and Skin Vitamin 1 tab PO DAILY 05/22/24
Klor-Con 20 meq PO DAILY 05/22/24
acetaminophen 500 mg PO Q6HPRN PRN h/a,mild pain,t >100.4f 05/22/24
diphenhydramine HCl 25 mg capsule (Benadryl) 25 mg PO HS PRN insomnia 05/22/24
magnesium oxide 400 mg PO DAILY 05/22/24
Review of Systems
-
History Source: Patient and Family (Nephew at bedside)
A 12 point ROS was completed and negative except as noted: Yes
Constitutional: Reports Weight Gain; Denies Chills
EENT: Denies Sore Throat or Runny Nose
Respiratory: Reports Trouble Breathing and Other (GILLIAM progressive x 12 weeks); Denies Cough
Cardiac: Denies Chest Pain, Diaphoresis, Palpitations or Syncope
Abdomen/GI: Reports Other (Abdominal distention/ascites); Denies Abdominal Pain, Nausea, Vomiting, Diarrhea, Constipated, Bloody Stools or Black Stools
: Denies Dysuria, Frequency, Flank Pain, Incontinence, Difficulty Voiding or Urgency
Musculoskeletal: Reports Edema (+2 edema from feet extending up legs to thighs to abdomen); Denies Joint Pain
Skin: Denies Itching or Rash
Neurological: Reports Weakness (Generalized); Denies Dizzy or Headache
Endocrine: Reports No Symptoms
Hematologic/Lymphatic: Reports No Symptoms
Psych: Reports Calm
Physical Exam
Vital Signs
Vital Signs
Temp Pulse Resp BP Pulse Ox
98.0 F 60 21 131/66 97
05/22/24 19:40 05/22/24 20:45 05/22/24 20:45 05/22/24 20:07 05/22/24 20:45
Physical Exam
General: Conversant and Other (Generalized fatigue); No Pain, Fever or Chills
HEENT: NormoCephalic, Anicteric, Moist mucous membranes, PERRLA, No Ptosis and Other (Pale conjunctiva)
Respiratory: Clear; No Wheezes, Rales or Rhonchi
Cardiac: S1/S2, Regular Rhythm, Peripheral Edema (+2 edema from feet extending up legs to thighs to abdomen) and JVD; No Murmur, Rub or Gallop
Breast: Deferred by me
GI: Soft, Non Tender, Normal Bowel Sounds and Distended (Secondary to ascites)
Genito-urinary: Deferred by me
Musculoskeletal: No Clubbing, No Cyanosis, Edema, Left Lower Extremity (+2 edema from feet extending up legs to thighs to abdomen) and Edema, Right Lower Extremity (+2 edema from feet extending up legs to thighs to abdomen); No Edema, Left Upper
Extremity or Edema, Right Upper Extremity
Skin: Warm and Dry; No Rash
Neuro: AO x 3, No Motor Deficits, Cranial Nerves Intact and No Sensory Deficits; No Slurred Speech, Facial Droop, Tremors or Sedated
Psych: Calm
Laboratory Results
-
05/22/24 19:49
05/22/24 19:49
Laboratory Results
PT 13.8 Sec (11.4-14.6) 05/22/24 19:49
INR 1.03 05/22/24 19:49
Total Bilirubin 0.4 mg/dl (0.2-1.3) 05/22/24 19:49
AST 40 U/L (14-36) H 05/22/24 19:49
ALT 21 U/L (0-35) 03/18/25 19:49
Alkaline Phosphatase 150 U/L (38-126) H 05/22/24 19:49
Troponin I < 0.012 ng/ml 05/22/24 19:49
Impression/Plan
-
Impression/plan:
Admit to telemetry
#Acute on chronic diastolic HFpEF
#H/O Takotsubo cardiomyopathy-recovered EF 2005
#Recurrent exudative LEFT -sided pleural effusion(-Unclear etiology, has had multiple thoracentesis over the last year 2023 no signs of malignancy on fluid studies)
-s/p thoracentesis 05/18/2023 w/ 750 cc removed
-s/p thoracentesis 09/27/2023 w/ 1500 cc removed
-s/p thoracentesis 10/20/2023 w/ 1450 cc removed
-s/p thoracentesis 11/18/2023 w/ 1500 cc removed
-s/p thoracentesis 11/25/2023 w/ 1700 cc removed
-s/p L Asept pleural catheter placement 11/29/23
-I/O, daily weights
-IV Lasix 40 mg given in ER, continue IV Lasix 40 mg daily
-Continue spironolactone 12.5 mg Tuesday
-Consult [facility] cardiology Dr. Daiz aware
-Continue metoprolol succinate
Echo 11/25/2023: EF 55-60%, global longitudinal strain is -14.2, stage III diastolic dysfunction, mild MR, dilated left atrium, aortic sclerosis, normal RV, pulmonary artery systolic pressure 45-50 mmHg
#Chronic transaminitis with abdominal ascites
-Check abdominal ultrasound including fluid level and liver
Unspecified hypothyroidism
Extreme elevated TSH with normal free T4
TSH was on 05/01/2024
-Levothyroxine was increased from 50 mcg to 100 mcg daily on 04/20
#Chronic hypoalbuminemia�severe persistent
Had endoscopy by Dr. Luis showing portal gastropathy
-Albumin level 2.1 has been as low as 1
#Sick sinus syndrome/tachybradycardia syndrome s/p Medtronic PPM (October 18)
#HX Elevated troponin, suspect nonischemic myocardial injury
# Paroxysmal Atrial fibrillation
Prior PVI (2016)
s/p PFA 08/24/23
- cont Eliquis 2.5 mg twice daily, amiodarone 200 mg in a.m., metoprolol succinate ER 25 mg once a day
#CKD 3B
Creat 1.1 appears near baseline
-Follow BMP
#Chronic anemia-macrocytic unclear etiology
Hgb 8.2 ,Prior 8.6 on 05/01/2024
-Check B12, folate, iron panel
-Continue vitamin B complex daily
#HLD
History of myalgias with low-dose Lipitor
-Hold Zetia 10 mg daily due to transaminitis
-Hold Livalo 1 mg Tuesday
#HTN
-- Continue metoprolol 25 mg ER daily
#MR�nonrheumatic
#Chronic hyponatremia
-Possibly hypervolemic with her recurrent effusions
-NA 130, fluid restrict 40 ounce
#Celiac's disease
-Gluten-free diet
-No signs of flare
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
-States that she had a nephrotic syndrome when she was young, approximately age 3-9 following infection with measles
-States that she had a lot of fluid build up in her stomach and legs at the time consistent with nephrosis
Other PMH:
Vertigo
Lung Nodule (2021, stable)
LE cellulitis (05/14/23)
DVT prophylaxis: Eliquis
CODE STATUS: Full code
--- NOTE | 2024-05-22 21:14 | W.PN.UPDATE ---
Update Note
Progress Note Update
Patient seen in conjunction with FARMWORKER CRANBERRY. I agree with the findings on history and physical. I concur with assessment and plan unless stated otherwise.
Briefly this is a 79-year-old female with past medical history of diastolic CHF, recent EF of around 50 to 60% while at [facility] in February, history of atrial fibrillation status post ablation, cardioversion, sick sinus syndrome status post pacemaker
placement, she is anticoagulated on Eliquis, she is on antiarrhythmic amiodarone, history of chronic edema secondary to CHF as well as hypoalbuminemia, celiac disease, hypothyroid diagnosed prior to initiation of amiodarone, chronic anemia, she was
recently admitted at [facility] for severe CHF pleural effusion status post thoracenteses with chest tube placement and discontinuation, ultimately discharged on torsemide 20 mg daily and spironolactone comes to the emergency department via cardiology
clinic for follow-up evaluation.
Patient seen by corporation secretary today and she had about 4 pound weight gain since discharge from pain. She has worsening of her chronic dyspnea on exertion. She has woody edema in lower extremities bilaterally. She has self continues to complain of
shortness of breath at rest and dyspnea on exertion. She did not complain of any chest pain palpitations lightheadedness or dizziness. She denies fevers or chills. She reports a chronic cough that is nonproductive. She now reports also some back
pain upon arrival in the emergency department after a few minutes. She said in the past when she had episode of back pain she was diagnosed with CHF exacerbation.
In the emergency department today blood pressure was 106/54 with a pulse of 66 that she was satting 98% on room air. Respiratory was 16. ECG shows rhythm that is undetermined and rate of 70. Flattened T waves throughout. Troponin was 0.012. BNP
was 1600, chest x-ray shows bilateral pleural effusion with mild increasing interstitial edema. CBC notable for hemoglobin of 8.2 which is similar to prior. It was 8.7 in November 2023. Electrolytes notable for sodium of 130, potassium of 3.6,
BUN of 32 and creatinine of 1.1 which is similar to prior. Albumin was 2.1. He had mild elevation in ALT and alk phos.
Assessment and plan
79-year-old with multifactorial dyspnea in part secondary to nonischemic cardiomyopathy with diastolic dysfunction EF of around 50-60, chronic pleural effusions, anemia, emphysema, chronic anemia, paroxysmal atrial fibrillation, sick sinus s/p ppm
presents to ED from cardiology clinic with weight gain, lower extremity edema and bilateral pleural effusions.
1. CHF exacerbation
- admit to telemetry
- on torsemide 20 po daily, will increase diuretic with lasix 40mg IV bid
- close monitoring for BP declines
- strict fluid restriction
- daily weight and i/os
- has recent echo in february. HF is nonischemic and diastolic. Negative amyloid w/u in the past
- troponin is negative, no findings of new ischemia
- continue spironalactone with hold parameters
- continue metoprolol
- edema likely worsened by chronic hypoalbuminemia
- cardiology consultation
2. AFIB - AFIB s/p PPM. Rhythm undetermined. Rate controlled.
- continue eliquis 2.5 bid
- continue metoprolol
- continue amio
- per cards not, no dofetilide
3. GI - Celiac disease possibly resulting in liver cirrhosis. ?amio. Recent EGD concerning for portal gastropathy
- RUQ u/s to eval cirrhosis and ascites
- continue amio for now
- gluten free diet
4. Hypothyroid
- check tsh
- continue levothyroxine 50 for now
5. Pleural effusions - Chronic pleural effusions. Seems increased from prior. Prior w/u exudative but no infectious/malignant findings. S/P thoracentesis in the past and most recently again at [place]. No acute hypoxia, fevers or chills.
- start with diuresis as bp tolerated
- checking ascites above, may tap that instead
6. Anemia - Chronic anemia multifactorial, hypothyroid, acd, macrocytic
- continue levothyroxine
- b12, folate, iron levels wnl on recent tests
- recent EGD without GI bleed.
- continue iron supplementation for now
7. Hyponatremia - acute on chronic. Volume overload, ?hypothyroid
- tsh as above
- fluid restriction
- diuresis
- consider neph consult
DVT PPX on eliquis
Code status - full code
Medical records from [facility] in am
[2024-05-22] MEDS: LASIX 40 MG IV (21:21)
[2024-05-22 22:25] LABS: Iron 70 ug/dl (37-170)
[2024-05-22 22:35] LABS: Percent Saturation 44 % (20-50); Total Iron Binding Capacity 159 ug/dl (265-497)
[2024-05-22 22:44] LABS: Ferritin 73.7 ng/ml (11.1-264.0)
[2024-05-22] MEDS: ELIQUIS 2.5 MG PO (23:05)
[2024-05-22 23:15] LABS: Folate 18.9 ng/ml (2.76-20); Vitamin B12 581 pg/ml (239-931)
[2024-05-23] VITALS (9 sets, daily range): BP systolic 66–150; BP diastolic 47–76; BMI 22.1
[2024-05-23] MEDS: BENADRYL 25 MG PO ×2 (00:06→21:55)
--- NOTE | 2024-05-23 00:30 | PTCARENOTE ---
Pt received on . AAOx3 pt able to walk from stretcher to bed with some weakness. Pt placed on tele. Oriented to room, call carreon within reach.
--- NOTE | 2024-05-23 04:26 | DOWNTIME ---
There was a [employer] Downtime on 05/23/2024 from 0100 to 05/24/2023 at 0420 . Downtime documentation of patient's care, including medication administrations, has been reconciled in the electronic record per guidelines. Refer to the
patient's paper chart under the miscellaneous tab to see printed paper medication records and downtime forms.
[2024-05-23] MEDS: SYNTHROID 100 MCG PO (05:54)
[2024-05-23 08:06] LABS: % Basophils 0.9 % (0-2); % Eosinophils 1.6 % (0-6); % Immature Granulocytes 0.3 % (0-0.5); % Lymphocytes 27.4 % (20.5-51.1); % Neutrophils 61.8 % (42.2-75.2); Absolute Basophils 0.1 10^3/uL (0-0.2); Absolute Eosinophils 0.1 10^3/uL (0-0.7); Absolute Lymphocytes 1.6 10^3/uL (1.2-3.4); Absolute Monocytes 0.5 10^3/uL (0.1-0.6); Absolute Neutrophils 3.5 10^3/uL (1.4-6.5); Hematocrit 21.9 % (37.0-47.0); Hemoglobin 7.2 g/dL (12.0-16.0); Mean Corp Hgb Conc. 32.9 g/dL (33.0-37.0); Mean Corpuscular Hgb 37.1 pg (27.0-31.0); Mean Corpuscular Volume 112.9 fL (81.0-99.0); Mean Platelet Volume 10.3 fL (7.4-10.4); Nucleated Red Blood Cells % 0 %; Platelet Count 301 10^3/uL (130-400); Red Blood Cell Count 1.94 10^6/uL (4.20-5.40); Red Cell Dist. Width 18.5 % (11.5-14.5); White Blood Cell Count 5.7 10^3/uL (4.8-10.8)
[2024-05-23 08:42] LABS: ALT (SGPT) 19 U/L (0-35); AST (SGOT) 30 U/L (14-36); Albumin 1.6 g/dl (3.5-5.0); Alkaline Phosphatase 126 U/L (38-126); Blood Urea Nitrogen 29 mg/dl (7-17); Calcium 7.3 mg/dl (8.4-10.2); Carbon Dioxide 27 mmol/L (22-30); Chloride 100 mmol/L (98-107); Estimated Creatinine Clearance 36 ml/min; Glucose 87 mg/dl (70-99); Potassium 3.3 mmol/L (3.5-5.1); Sodium 131 mmol/L (135-145); Total Bilirubin 0.3 mg/dl (0.2-1.3); eGFR 50.48
--- NOTE | 2024-05-23 09:07 | W.PN.HOSP.TC ---
Today's Communication/Plan
-
see A/P
Assessment / Plan
Assessment / Plan
HPI: 79-year-old female with past medical history of diastolic CHF, recent EF of around 50 to 60% while at [place] in February, history of atrial fibrillation status post ablation, cardioversion, sick sinus syndrome status post pacemaker placement, she
is anticoagulated on Eliquis, she is on antiarrhythmic amiodarone, history of chronic edema secondary to CHF as well as hypoalbuminemia, celiac disease, hypothyroid diagnosed prior to initiation of amiodarone, chronic anemia, she was recently
admitted at [facility] for severe CHF pleural effusion status post thoracenteses with chest tube placement and discontinuation, ultimately discharged on torsemide 20 mg daily and spironolactone comes to the emergency department via cardiology clinic for
follow-up evaluation.
Patient seen by automotive parts counterperson on DOA and she had about 4 pound weight gain since discharge from [facility]. She has worsening of her chronic dyspnea on exertion and has chronic SOB.
A/P:
# Acute on chronic diastolic heart failure
MANAGER DIESEL on torsemide 20 po daily,
Cont current IV lasix 40mg IV daily, follow daily weight and i/os
strict fluid restriction
continue spironolactone with hold parameters
continue metoprolol
cardiology eval
Small volume ascites of Abd US
# Persistent atrial fibrillation
# Prior PVI (2017)
# s/p PFA 08/24/23
Noted med recc not completed
continue MANAGER DIESEL eliquis 2.5 bid
continue MANAGER DIESEL metoprolol
continue MANAGER DIESEL amio
# Hypothyroidism
TSH 40, follow FT4
pending med recc, pt states that Synthroid dose was increased to 100 recently
Would cont current 100 mcg, recc to check repeat TSH reflex FT4 outpt in 4 weeks before further dose adjustment- pt informed
# Chronic pleural effusions.
S/P thoracentesis in the past and most recently again at [place].
No acute hypoxia.
Diuresis as above
# Chronic anemia
Monitor Hgb
recent b12, folate level WNL
recent iron panel acceptable (iron level 70, ferritin 73)
recent EGD without GI bleed.
continue iron supplementation for now
# Chronic Hyponatremia
Sodium level at 131 today which appears to be at baseline
Monitor
# Hypokalemia
replete K
# Celiac disease
gluten free diet
DVT PPX on eliquis
Code status - full code
DW RN
total time spent 51 min
Anticipated Discharge: > 48 hours
Subjective/Interval History
-
Date of Service: May 23, 2024
Objective Data
-
Labs:
Laboratory Results
05/23/24
07:20
WBC 5.7
Hgb 7.2 L
Hct 21.9 L
Plt Count 301
Sodium 131 L
Potassium 3.3 L
Chloride 100
Carbon Dioxide 27
BUN 29 H
Creatinine 1.1 H
Glucose 87
Calcium 7.3 L
Total Bilirubin 0.3
AST 30
ALT 19
Alkaline Phosphatase 126
Vital Signs:
Vital Signs
Temp Pulse Resp BP Pulse Ox
36.9 C 75 16 135/68 99
05/23/24 06:46 05/23/24 06:46 05/23/24 06:46 05/23/24 06:46 05/23/24 06:46
I&O
05/22/24 05/23/24 05/24/24
06:59 06:59 06:59
Intake Total 240 / 240
Balance 240 / 240
[2024-05-23 09:38] LABS: Free T4 1.64 ng/dl (0.78-2.19)
[2024-05-23] MEDS: VITAMIN D3 (cholecalciferol) 25 MCG PO (09:38)
[2024-05-23] MEDS: B COMPLEX w/VITAMIN C 1 CAPLET PO (09:38)
[2024-05-23] MEDS: MAGNESIUM OXIDE 500 MG PO (09:38)
[2024-05-23] MEDS: VITAMIN C 1000 MG PO (09:38)
[2024-05-23] MEDS: TOPROL XL 25 MG PO (09:39)
[2024-05-23] MEDS: THERAGRAN 1 TABLET PO (09:39)
[2024-05-23] MEDS: KCL 40 MEQ PO (09:39)
[2024-05-23] MEDS: KCL 20 MEQ PO (09:39)
[2024-05-23] MEDS: ALDACTONE 12.5 MG PO (09:40)
[2024-05-23] MEDS: PACERONE 200 MG PO (09:40)
[2024-05-23] MEDS: ZETIA 10 MG PO (09:41)
[2024-05-23] MEDS: ELIQUIS 2.5 MG PO ×2 (09:41→20:43)
[2024-05-23] MEDS: OSCAL CAL 500 500 MG PO ×2 (09:41→20:42)
[2024-05-23] MEDS: LASIX 40 MG IV (09:41)
[2024-05-23] MEDS: KLOR-CON 20 MEQ PO (09:41)
[2024-05-23 10:14] LABS: Magnesium 1.8 mg/dl (1.6-2.3)
--- NOTE | 2024-05-23 11:20 | CON.CAR ---
Addendum entered and electronically signed by Sukhdev Renner MD 05/23/24 15:30:
I saw and examined the patient.
The Senior Telecommunications Engineer's note was reviewed and I agree with the note.
Comment: Briefly, 79-year-old woman past medical history of heart failure with preserved ejection fraction, hypoalbuminemia, recurrent pleural effusion status post Pleurx and subsequent VATS, persistent atrial fibrillation status post PVI and
permanent pacemaker who was sent from cardiology office to ER for evaluation due to total body volume overload concerning for acute decompensated heart failure.
In speaking with the patient she reports that she has had significant lower extremity edema which has been worsening over the prior days to weeks and feels that her abdomen is distended as well. Also reports that she is experienced significant
dyspnea on exertion even with minor activities such as with ambulating to the bathroom.
While she carries a diagnosis of heart failure with preserved ejection fraction her proBNP is only mildly elevated
Albumin and protein are severely decreased on labs this a.m. and I suspect there is some contribution of low oncotic pressure
Unclear to me if there is underlying cirrhosis or nephrotic syndrome
TSH is also severely elevated and may be contributing to her symptoms as well
For now would continue IV Lasix and attempt to improve her volume status
Continue spironolactone MWF�blood pressure is unlikely to tolerate higher doses
Would likely benefit from compression stockings to lower extremity
Could consider Thora or paracentesis if she does not have significant improvement with IV diuresis
Rest per Radhika Eaton
Original Note:
Consultation
Consultation Request
Date/Time Consultation Requested: 05/22/24 at 2225
Date/Time Consultation Performed: 05/23/24
Requesting Provider: Dr. Reddy
Performing Provider: Dr. Renner
Reason for Consultation: Volume overload, possible acute HF
Medical History
-
History of Present Illness:
Patient came to [facility] yesterday after cardiology office visit where she had anasarca and cardiology is now consulted. Patient was admitted to 11/24/23 until 11/30/23 with acute HF and during that admission for had a left sided indwelling pleural
catheter placed for recurrent pleural effusion. Patient then had admission to [facility] 01/09/2024 until 02-27 where her expedited amyloid workup was negative and she had VATS and pulmonary decortication for hemorrhagic pleural effusion. She then went
to rehab at [facility] and was followed by ATC at that time. During her [facility] rehab admission her usual dose of Tikosyn was changed to amiodarone. Previous workup for hypoalbuminemia was concerning for possible GI loss. Patient reports GI workup and they
felt patient may have cirrhosis due to history of celiac disease. Upper endoscopy was canceled by patient at one point, but after strong encouragement she follow through with procedure on 05/10/2024 and was found to have moderate portal hypertensive
gastropathy.. Patient was seen in the office 03/19/2024 and spironolactone 12.5 mg daily was added at that time, but she saw her PCP shortly thereafter and it looks like it was held. Spironolactone was ultimately restarted at 12.5 mg MWF when she
was seen again in the office on 04/04/2024, also at that time she was supposed to be taking torsemide 30 mg daily but was still only taking her usual dose of 20 mg daily. There was then a phone call to our office on 04/13/2024 where it turned out that
patient had unknowingly been taking amiodarone and dofetilide together for quite some time. Cardiology PA on our office called patient on 04/13/2024 and had a detailed conversation explaining that she should no longer be taking dofetilide and that she
should only be taking amiodarone. It sounds like the patient was confused and then stopped amiodarone continued to take dofetilide, but this was cleared up with the patient. Abdominal ultrasound performed earlier today shows normal liver
echogenicity. I do not see that patient has had FibroScan looking for cirrhosis in the GI office on my review of [facility] records. When patient was seen in the office yesterday on 05/22/2024 she had weight gain and evidence of anasarca with pitting
edema up into her abdomen. Patient was sent to the ER and reports improved LE edema and SOB following Lasix 40 mg IV daily since admission.
PMH:
Chronic HFpEF
h/o pleural effusion
s/p Left Asept pleural catheter placement 11/29/23, removed after admission to [facility] with VATS and pulmonary decortication 01/2024
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
Paroxysmal atrial fibrillation
Prior PVI (2016)
s/p PFA 08/24/23
Maintained on amiodarone
Chronic anticoagulation on Eliquis
Takotsubo CM w/recovered EF (2005)
Negative workup for cardiac amyloid
HLD
HTN
MR
Renal nephrosis
Lung Nodule (2021, stable)
Anemia
Past Medical History
Past Medical History: Other (See HPI)
Past Surgical History: Cardiac (PVI ablation 2016, pulsed field ablation 08/24/2023) and Other (Bilateral hernia repair, left breast lumpectomy, cataract extraction)
Social History
Tobacco: Former Smoker
Alcohol: None
Drug: None
Living: With Family
Family History
Family History: CAD and Hypertension
Allergies / Home Medications
Allergy/AdvReac Type Severity Reaction Status Date / Time
Antihistamines Allergy Rash Verified 05/22/24 17:23
Cephalosporins Allergy Rash Verified 05/22/24 17:23
hydrochlorothiazide Allergy Rash Verified 05/22/24 17:23
penicillin G Allergy Rash Verified 05/22/24 17:23
penicillin V Allergy Rash Verified 05/22/24 17:23
Penicillins Allergy Rash Verified 05/22/24 17:23
�Medication �Instructions �Recorded �Confirmed �Type
aspirin 81 mg tablet,delayed 81 mg PO HS blood thinner 05/17/23 05/10/24 History
release
apixaban 2.5 mg tablet (Eliquis) 2.5 mg PO BID afib 07/19/23 05/10/24 History
ezetimibe 10 mg tablet (Zetia) 10 mg PO DAILY cholesterol 07/19/23 05/10/24 History
pitavastatin calcium 1 mg tablet 1 mg PO MOWEFR cholesterol 07/19/23 05/10/24 History
(Livalo)
potassium chloride 20 mEq 20 meq PO DAILY Supplement 07/19/23 05/10/24 History
tablet,extended release(part/cryst)
amiodarone 200 mg tablet 200 mg PO DAILY Arrhythmia 05/10/24 05/10/24 History
ascorbic acid (vitamin C) 1,000 mg 1,000 mg PO DAILY Supplement 05/10/24 05/10/24 History
tablet,extended release (Vitamin C
ER)
cholecalciferol (vitamin D3) 50 25 mcg PO DAILY Supplement 05/10/24 05/10/24 History
mcg (2,000 unit) tablet (Vitamin
D3)
levothyroxine 50 mcg tablet 100 mcg PO DAILY Thyroid 05/10/24 05/10/24 History
metoprolol succinate 25 mg 25 mg PO DAILY Blood Pressure 05/10/24 05/10/24 History
tablet,extended release 24 hr
multivitamin-ferrous 1 tab PO DAILY Supplement 05/10/24 05/10/24 History
fumarate-folic acid 18 mg-400 mcg
tablet
omega-3 fatty acids-vitamin E 1 cap PO DAILY Supplement 05/10/24 05/10/24 History
1,000 mg capsule
sour monroe extract 1,000 mg 800 mg PO DAILY Supplement 05/10/24 05/10/24 History
capsule (Tart Monroe Extract)
spironolactone 25 mg tablet 12.5 mg PO .MOWEFR Fluid 05/10/24 05/10/24 History
retention/Swelling
torsemide 20 mg tablet 20 mg PO DAILY Fluid 05/10/24 05/10/24 History
Retention/Swelling
vitamin B complex 1 tab PO DAILY Supplement 05/10/24 05/10/24 History
Calcium 600 600 mg PO BID Supplement 05/22/24 05/22/24 History
Hair,Nails and Skin Vitamin 1 tab PO DAILY Supplement 05/22/24 05/22/24 History
Klor-Con 20 meq PO DAILY Electrolyte 05/22/24 05/22/24 History
Repletion
acetaminophen 500 mg PO Q6HPRN PRN h/a,mild 05/22/24 05/22/24 History
pain,t >100.4f
diphenhydramine HCl 25 mg capsule 25 mg PO HS PRN insomnia 05/22/24 05/22/24 History
(Benadryl)
magnesium oxide 400 mg PO DAILY Electrolyte 05/22/24 05/22/24 History
Repletion
Review of Systems
-
History Source: Patient
All other systems: Negative unless noted
Physical Exam
Vital Signs
Temp Pulse Resp BP Pulse Ox
98.4 F 75 16 135/68 99
05/23/24 06:46 05/23/24 06:46 05/23/24 06:46 05/23/24 06:46 05/23/24 08:00
GEN: NAD. AAO x3
HEENT: EOMI, MMM
LUNGS: RA. Dyspneic with conversation. Decreased BS right worse than left base. No audible wheeze
CV: SR on tele. Reg, S1/S2, 2/6 BSM
ABD: Distended. Soft, BS+, NT
EXT: +1-2 B/L LE edema. No cyanosis or clubbing.
NEURO: Gross non-focal
SKIN: Warm, pink and dry. No rash
Lab Results
05/23/24 07:20
05/23/24 07:20
Troponin I < 0.012 ng/ml 05/22/24 19:49
Nxt-T-Zjpepekeghw Pept 1620 pg/ml 05/22/24 19:49
Impression / Plan
-
PCP: Stella Sutherland PA-C
Clinical Trial Data Manager: Dr. Kiera Diaz
Impression:
Presented with SOB
Acute on chronic HFpEF
Recurrent pleural effusion
s/p Left Asept pleural catheter placement 11/29/23, removed after admission to [facility] with VATS and pulmonary decortication 01/2024
now with right sided pleural effusion 05/23/24
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
Hyponatremia
Paroxysmal atrial fibrillation
Prior PVI (2016)
s/p PFA 08/24/23
Tikosyn stopped during [facility] rehab stay 02/2024 and now on chronic amiodarone
Chronic anticoagulation on Eliquis
Takotsubo CM w/recovered EF (2005)
Negative workup for cardiac amyloid
HLD
HTN
MR
Renal nephrosis
Lung Nodule (2021, stable)
Anemia
Echo 05/18/2023: EF 69%, stage II diastolic dysfunction. Moderately dilated right atrium. Mild to moderate MR. Mild TR. PAP 36 mmHg. Small pericardial effusion
Echo 11/25/2023: EF 55-60%, global longitudinal strain is -14.2, stage III diastolic dysfunction, mild MR, dilated left atrium, aortic sclerosis, normal RV, pulmonary artery systolic pressure 45-50 mmHg
Plan:
-Patient came to [facility] yesterday after cardiology office visit where she had anasarca and cardiology is now consulted. Patient was admitted to 11/24/23 until 11/30/23 with acute HF and during that admission for had a left sided indwelling pleural
catheter placed for recurrent pleural effusion. Patient then had admission to [facility] 01/09/2024 until 02-27 where her expedited amyloid workup was negative and she had VATS and pulmonary decortication for hemorrhagic pleural effusion. She then went
to rehab at [facility] and was followed by ATC at that time. During her [facility] rehab admission her usual dose of Tikosyn was changed to amiodarone. Previous workup for hypoalbuminemia was concerning for possible GI loss. Patient reports GI workup and they
felt patient may have cirrhosis due to history of celiac disease. Upper endoscopy was canceled by patient at one point, but after strong encouragement she follow through with procedure on 05/10/2024 and was found to have moderate portal hypertensive
gastropathy.. Patient was seen in the office 03/19/2024 and spironolactone 12.5 mg daily was added at that time, but she saw her PCP shortly thereafter and it looks like it was held. Spironolactone was ultimately restarted at 12.5 mg MWF when she
was seen again in the office on 04/04/2024, also at that time she was supposed to be taking torsemide 30 mg daily but was still only taking her usual dose of 20 mg daily. There was then a phone call to our office on 04/13/2024 where it turned out that
patient had unknowingly been taking amiodarone and dofetilide together for quite some time. Cardiology PA on our office called patient on 04/13/2024 and had a detailed conversation explaining that she should no longer be taking dofetilide and that she
should only be taking amiodarone. It sounds like the patient was confused and then stopped amiodarone continued to take dofetilide, but this was cleared up with the patient. Abdominal ultrasound performed earlier today shows normal liver
echogenicity. I do not see that patient has had FibroScan looking for cirrhosis in the GI office on my review of [facility] records. When patient was seen in the office yesterday on 05/22/2024 she had weight gain and evidence of anasarca with pitting
edema up into her abdomen. Patient was sent to the ER and reports improved LE edema and SOB following Lasix 40 mg IV daily since admission.
-ECG reviewed by me looks like A-paced rhythm
-This is a complex case. Patient with hypervolemia that is multifactorial including hypoalbuminemia. Patient has had severe and persistent hypoalbuminemia and at this point we do not have a unifying diagnosis. Outpatient upper endoscopy from
05/10/2024 showed moderate portal hypertensive gastropathy. No evidence of cirrhosis on most recent U/S.
-Abdominal ultrasound suggested small volume ascites
-CXR suggests right greater than left pleural effusion. Patient previously had recurrent left-sided pleural effusion which appears improved following admission to [facility] with VATS and pulmonary decortication 01/2024. Will consult IR to see if the
right sided pleural effusion would benefit from thoracentesis and would then send fluid studies.
-Patient has had proteinuria as well without clear cause.
-Agree with admission and attempts at IV diuresis with Lasix 40 mg IV daily. Patient was taking torsemide 20 mg daily just prior to admission
-Previous dry weight was as low as 122 lbs. Patient weighs 132 lbs 05/23/24
-Last echo from 11/25/2023 as noted above with preserved EF and stage III diastolic dysfunction.
-Outpatient dose of Toprol XL 25 mg daily has been continued
-Patient is not chronically on NILAY/ARB/ARNI due to hypotension
-Outpatient dose of spironolactone 12.5 mg MWF has been continued
-Patient is not chronically on an SGLT2 inhibitor due to history of UTI
-Previous cardiac amyloid workup was negative
-Patient with known paroxysmal A-fib and appears a paced on telemetry. Device check in the office on 05/22/2024 showed an A-fib burden of 1%. Her usual dose of amiodarone 200 mg daily has been continued. Tikosyn was stopped during her rehab stay
at [facility].
-Will continue to follow telemetry and previously patient was noted to have multiple atrial tachycardias and if there is breakthrough despite amiodarone would consider AVJ as patient has PPM in place.
-Continue Eliquis 2.5 mg BID (age 79, Cre 1.1, wt 60.24 kg)
[2024-05-23 16:43] LABS: LDH 158 U/L (120-246)
[2024-05-23 16:47] LABS: Body Fluid pH 7.48
--- NOTE | 2024-05-23 16:48 | CM ---
broadcast operations manager reviewed patient's chart and met with patient and patient lives with spouse, 2 story home with one step to enter, son lives next door, patient is independent with adl's and ambulation.
PCP: Dr Rubio
Pharmacy: [facility]
Plan; Will follow for discharge planning needs.
[2024-05-23 16:53] LABS: Body Fluid Mononuclear 84.5 %; Body Fluid Polymorphonuclear 15.5 %; Body Fluid WBC 317 /CUMM
[2024-05-23 16:55] LABS: Body Fluid Second Tech DW
[2024-05-23 17:00] LABS: Body Fluid Amylase 49 U/L; Body Fluid Glucose 114 mg/dl; Body Fluid LDH < 90 U/L; Body Fluid Protein < 2.0 g/dl; Body Fluid Triglycerides < 30 mg/dl
[2024-05-23 18:48] LABS: COVID-19 Antigen Negative (Negative)
[2024-05-23] MEDS: ASPIR LOW (ENTERIC COATED) 81 MG PO (20:43)
[2024-05-24 03:48] VITALS: BP 101/55
[2024-05-24] MEDS: SYNTHROID 100 MCG PO (05:43)
[2024-05-24 06:00] VITALS: BMI 22.1
[2024-05-24 07:40] VITALS: BP 109/52
[2024-05-24 08:34] LABS: Hematocrit 24.3 % (37.0-47.0); Hemoglobin 7.9 g/dL (12.0-16.0); Mean Corp Hgb Conc. 32.5 g/dL (33.0-37.0); Mean Corpuscular Hgb 36.9 pg (27.0-31.0); Mean Corpuscular Volume 113.6 fL (81.0-99.0); Mean Platelet Volume 10.2 fL (7.4-10.4); Platelet Count 281 10^3/uL (130-400); Red Blood Cell Count 2.14 10^6/uL (4.20-5.40); Red Cell Dist. Width 18.7 % (11.5-14.5); White Blood Cell Count 6.3 10^3/uL (4.8-10.8)
[2024-05-24 08:55] LABS: Blood Urea Nitrogen 29 mg/dl (7-17); Calcium 7.9 mg/dl (8.4-10.2); Carbon Dioxide 27 mmol/L (22-30); Chloride 103 mmol/L (98-107); Estimated Creatinine Clearance 36 ml/min; Glucose 101 mg/dl (70-99); Magnesium 1.9 mg/dl (1.6-2.3); Potassium 4.1 mmol/L (3.5-5.1); Sodium 132 mmol/L (135-145); eGFR 50.48
--- NOTE | 2024-05-24 10:05 | W.PN.HOSP.TC ---
Today's Communication/Plan
-
see A/P
Assessment / Plan
Assessment / Plan
HPI: 79-year-old female with past medical history of diastolic CHF, recent EF of around 50 to 60% while at [facility] in February, history of atrial fibrillation status post ablation, cardioversion, sick sinus syndrome status post pacemaker placement, she
is anticoagulated on Eliquis, she is on antiarrhythmic amiodarone, history of chronic edema secondary to CHF as well as hypoalbuminemia, celiac disease, hypothyroid diagnosed prior to initiation of amiodarone, chronic anemia, she was recently
admitted at [facility] for severe CHF pleural effusion status post thoracenteses with chest tube placement and discontinuation, ultimately discharged on torsemide 20 mg daily and spironolactone comes to the emergency department via cardiology clinic for
follow-up evaluation.
Patient seen by accountant machine processing on DOA and she had about 4 pound weight gain since discharge from [facility]. She has worsening of her chronic dyspnea on exertion and has chronic SOB.
A/P:
# Acute on chronic diastolic heart failure
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
Cont current IV lasix 40mg IV daily, follow daily weight and i/os
strict fluid restriction
continue Toprol, spironolactone with hold parameters.
cardiology on board
Small volume ascites noted on Abd US
# Persistent atrial fibrillation
# Prior PVI (2017)
# s/p PFA 08/24/23
Noted med recc not completed
continue DIRECTOR OF INTEGRATED MARKETING eliquis 2.5 bid
continue DIRECTOR OF INTEGRATED MARKETING metoprolol
continue DIRECTOR OF INTEGRATED MARKETING amio
# Hypothyroidism
TSH 40, follow FT4
pt states that Synthroid dose was increased to 100 recently. Recc to cont 100 mcg, check repeat TSH reflex FT4 outpt in 4 weeks with PCP before further dose adjustment- pt informed
# Chronic pleural effusions.
S/P thoracentesis in the past and most recently again at [facility].
No acute hypoxia.
Diuresis as above
s/p IR L thoracentesis 05/23, 1350 cc thin light yellow pleural fluid evacuated. Transudative fluid
# Chronic anemia
Monitor Hgb
recent b12, folate level WNL
recent iron panel acceptable (iron level 70, ferritin 73)
recent EGD without GI bleed.
continue iron supplementation for now
# Chronic Hyponatremia
Sodium level at 132 today which appears to be at baseline
Monitor
# Hypokalemia
repleted K
# Celiac disease
gluten free diet
DVT PPX on eliquis
Code status - full code
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
Anticipated Discharge: 24 - 48 hours
Subjective/Interval History
-
Date of Service: May 24, 2024
Objective Data
-
Labs:
Laboratory Results
05/23/24 05/24/24
23:00 07:40
WBC 6.3
Hgb 7.9 L
Hct Cancelled 24.3 L
Plt Count 281
Sodium 132 L
Potassium 4.1
Chloride 103
Carbon Dioxide 27
BUN 29 H
Creatinine 1.1 H
Glucose 101 H
Calcium 7.9 L
Vital Signs:
Vital Signs
Temp Pulse Resp BP Pulse Ox
36.7 C 76 18 109/52 97
05/24/24 07:40 05/24/24 07:40 05/24/24 07:40 05/24/24 07:40 05/24/24 07:40
I&O
05/23/24 05/24/24 05/25/24
06:59 06:59 06:59
Intake Total 240 / 240 0 / 0
Balance 240 / 240 0 / 0
Review of Systems
-
History Source: Patient
All other systems: Reviewed and negative
Physical Exam
-
General: No Apparent Distress, Comfortable and Other (Thin and frail appearing); Negative Respiratory Distress
HEENT: Normocephalic, Atraumatic and Moist Mucous Membranes
Respiratory: Clear to Auscultation and Non Labored Respirations; Negative Accessory Resp Muscle Use
Cardiac: S1/S2 and Murmur
GI: Soft, Nontender and Normal Bowel Sounds
Musculoskeletal: No Clubbing, No Cyanosis, Edema, Right Lower Extrem (mild) and Edema, Left Lower Extrem (mild)
Skin: Warm and Dry
Neuro: Awake and Alert
Psych: Calm and Intact Judgement/Insight
Data Reviewed
-
Diagnostic Radiology: Report Reviewed by me
Labs: Labs Reviewed by me
--- NOTE | 2024-05-24 11:08 | W.PN.CARDCBS ---
Addendum entered and electronically signed by Jose Alberto Tran MD 05/24/24 17:32:
79-year-old woman with chronic HFpEF and hypoalbuminemia, no obvious cirrhosis or process but concern regarding protein losing enteropathy, now admitted with acute on chronic HFpEF with edema
PMH: Celiac disease, hypothyroidism, anemia, PAF with history of PVI in 2016 and PFA August 2023, on amiodarone, Takotsubo cardiomyopathy 2006, hypertension, hyperlipidemia, mild MR, mild pulmonary hypertension
PSH: VATS, Medtronic dual-chamber pacer
Medications: Furosemide 40 mg IV daily, amiodarone 200 mg daily, apixaban 2.5 mg twice daily, aspirin 81 mg daily, calcium carbonate, ezetimibe 10 mg a day, potassium 20 meq daily, magnesium, potassium 20 mEq daily and tablet 20 mEq daily,
spironolactone 12.5 mg 3 times a week, levothyroxine
109/52, 95/47 pulse 76, afebrile, sats 97%, weight is 60.1 kg, weight unchanged, frail, cachectic, no acute distress, diminished breath sounds in bases, regular rate and rhythm with soft murmur, minimal edema
Thoracentesis yesterday on right, 1350 mL
Chest x-ray yesterday left effusion, small right effusion, improved
Hemoglobin 7.9, platelets 281, sodium 132, BUN/creatinine are 29 and 1.1, potassium 4.1, magnesium 1.9, Albumin is 1.6
Chemistries for pleural fluid consistent with transudate
Impression:
Acute on chronic HFpEF, global longitudinal strain -14.2, negative evaluation for amyloid
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
Recurrent pleural effusions, right thoracentesis 05/23/2024 for 1350 mL
Left IKE pleural catheter November 2023, with left VATS and pulmonary decortication January 2024
PAF with PVI in 2016 and PFA in August 2023, on amiodarone
Medtronic dual-chamber pacemaker
Remote Takotsubo cardiomyopathy 2005
Hypertension
Hyperlipidemia
Mild mitral regurgiitation
Celiac disease
Plan:
She is improved from a volume standpoint. She says her breathing is better after thoracentesis. She had a VATS on the left, wonder if similar procedure should be considered for the right.
Although she has a diagnosis of HFpEF the major issue is hypoalbuminemia. 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 She has follow-up planned with GI for further evaluation.
Continue IV Lasix for now. No other changes recommended.
Her PAF is controlled and she is anticoagulated, will follow for now
Original Note:
Today's Communication / Plan
-
Continue diuresis
Known history of paroxysmal atrial fibrillation, went into A-fib this morning but now back in NSR. Continue metoprolol, amiodarone, and Eliquis.
Impression / Plan
-
PCP: Stella Sutherland PA-C
Brazing Machine Operator Automatic: Dr. Kiera Diaz
Impression:
Presented with SOB
Acute on chronic HFpEF
Recurrent pleural effusion
s/p Left Asept pleural catheter placement 11/29/23, removed after admission to [place] with VATS and pulmonary decortication 01/2024
now with right sided pleural effusion 05/23/24 status post right thoracentesis 05/23/2024 for 1350 cc
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
Hyponatremia
Paroxysmal atrial fibrillation
Prior PVI (2016)
s/p PFA 08/24/23
Tikosyn stopped during [facility] rehab stay 02/2024 and now on chronic amiodarone
Chronic anticoagulation on Eliquis
Takotsubo CM w/recovered EF (2005)
Negative workup for cardiac amyloid
HLD
HTN
MR
Renal nephrosis
Lung Nodule (2021, stable)
Anemia
Echo 05/18/2023: EF 69%, stage II diastolic dysfunction. Moderately dilated right atrium. Mild to moderate MR. Mild TR. PAP 36 mmHg. Small pericardial effusion
Echo 11/25/2023: EF 55-60%, global longitudinal strain is -14.2, stage III diastolic dysfunction, mild MR, dilated left atrium, aortic sclerosis, normal RV, pulmonary artery systolic pressure 45-50 mmHg
Plan:
-Patient came to [facility] yesterday after cardiology office visit where she had anasarca and cardiology is now consulted. Patient was admitted to 11/24/23 until 11/30/23 with acute HF and during that admission for had a left sided indwelling pleural
catheter placed for recurrent pleural effusion. Patient then had admission to [place] 01/09/2024 until 02-27 where her expedited amyloid workup was negative and she had VATS and pulmonary decortication for hemorrhagic pleural effusion. She then went
to rehab at [facility] and was followed by [facility] at that time. During her [facility] rehab admission her usual dose of Tikosyn was changed to amiodarone. Previous workup for hypoalbuminemia was concerning for possible GI loss. Patient reports GI workup and they
felt patient may have cirrhosis due to history of celiac disease. Upper endoscopy was canceled by patient at one point, but after strong encouragement she follow through with procedure on 05/10/2024 and was found to have moderate portal hypertensive
gastropathy.. Patient was seen in the office 03/19/2024 and spironolactone 12.5 mg daily was added at that time, but she saw her PCP shortly thereafter and it looks like it was held. Spironolactone was ultimately restarted at 12.5 mg MWF when she
was seen again in the office on 04/04/2024, also at that time she was supposed to be taking torsemide 30 mg daily but was still only taking her usual dose of 20 mg daily. There was then a phone call to our office on 04/13/2024 where it turned out that
patient had unknowingly been taking amiodarone and dofetilide together for quite some time. Cardiology PA on our office called patient on 04/13/2024 and had a detailed conversation explaining that she should no longer be taking dofetilide and that she
should only be taking amiodarone. It sounds like the patient was confused and then stopped amiodarone continued to take dofetilide, but this was cleared up with the patient. Abdominal ultrasound performed earlier today shows normal liver
echogenicity. I do not see that patient has had FibroScan looking for cirrhosis in the GI office on my review of [facility] records. When patient was seen in cardiology the office on 05/22/2024 she had weight gain and evidence of anasarca with pitting
edema up into her abdomen. Patient was sent to the ER and reports improved LE edema and SOB following Lasix 40 mg IV daily since admission.
-This is a complex case. Patient with hypervolemia that is multifactorial including hypoalbuminemia. Patient has had severe and persistent hypoalbuminemia and at this point we do not have a unifying diagnosis. Outpatient upper endoscopy from
05/10/2024 showed moderate portal hypertensive gastropathy. No evidence of cirrhosis on most recent U/S.
-Abdominal ultrasound suggested small volume ascites
-CXR 05/23/2024 suggests right greater than left pleural effusion and she is s/p thoracentesis for 1350 cc on 05/23/2024, light yellow pleural fluid, sent for culture. Patient previously had recurrent left-sided pleural effusion which appears
improved following admission to [place] with VATS and pulmonary decortication 01/2024.
-Patient has had proteinuria as well without clear cause.
-started Lasix 40 mg IV daily upon admission. Wt down 2 lbs since admission but no pounds overnight. Patient was taking torsemide 20 mg daily just prior to admission
-Previous dry weight was as low as 122 lbs. Patient weighs 132 lbs 05/24/24
-Consider up titration of diuretic, gently given lower blood pressures
-Last echo from 11/25/2023 as noted above with preserved EF and stage III diastolic dysfunction.
-Outpatient dose of Toprol XL 25 mg daily has been continued
-Patient is not chronically on NILAY/ARB/ARNI due to hypotension
-Outpatient dose of spironolactone 12.5 mg MWF has been continued
-Patient is not chronically on an SGLT2 inhibitor due to history of UTI
-Previous cardiac amyloid workup was negative
-Patient with known paroxysmal A-fib. Device check in the office on 05/22/2024 showed an A-fib burden of 1%.
-review of telemetry today concerning for atrial fibrillation. Remote interrogation of device: in slow afib/flutter, HRs controlled, 6.4% afib burden since last device interrogation 05/22/2024. She is apaced 20%. Denies palps/lightheadedness
-repeat check of telemetry at 1245 pm: pt back in NSR/Apaced
-cont Amio, Toprol
-Will continue to follow telemetry and previously patient was noted to have multiple atrial tachycardias and if there is breakthrough despite amiodarone would consider AVJ as patient has PPM in place.
-Continue Eliquis 2.5 mg BID (age 79, Cre 1.1, wt 60.24 kg)
Progress Note - Brazing Machine Operator Automatic
Subjective
Date of Service: May 24, 2024
Shortness of breath improved, patient is status post right thoracentesis for 1350 cc
Patient reports improved lower extremity edema and abdominal distention. Weight only down 2 pounds since admission.
Went into A-fib this a.m., but back in NSR
Objective
Labs:
05/24/24 07:40
05/24/24 07:40
Labs
Hgb 7.9 g/dL (12.0-16.0) L 05/24/24 07:40
Hct 24.3 % (37.0-47.0) L 05/24/24 07:40
Plt Count 281 10^3/uL (130-400) 05/24/24 07:40
PT 13.8 Sec (11.4-14.6) 05/22/24 19:49
INR 1.03 05/22/24 19:49
Sodium 132 mmol/L (135-145) L 05/24/24 07:40
Potassium 4.1 mmol/L (3.5-5.1) 05/24/24 07:40
BUN 29 mg/dl (7-17) H 05/24/24 07:40
Creatinine 1.1 mg/dL (0.6-1.0) H 05/24/24 07:40
Glucose 101 mg/dl (70-99) H 05/24/24 07:40
Troponins
05/22/24
19:49
Troponin I < 0.012
Vital Signs and I&O:
Vital Signs
Temp Pulse Resp BP Pulse Ox
98.1 F 76 18 109/52 97
05/24/24 07:40 05/24/24 07:40 05/24/24 07:40 05/24/24 07:40 05/24/24 07:40
Vital Signs
Temp Pulse Resp BP Pulse Ox
98.1 F 76 18 109/52 97
05/24/24 07:40 05/24/24 07:40 05/24/24 07:40 05/24/24 07:40 05/24/24 07:40
Intake & Output
05/22/24 05/23/24 05/24/24 05/25/24
06:59 06:59 06:59 06:59
Intake Total 240 / 240 0 / 0
Balance 240 / 240 0 / 0
Physical Exam
Physical Exam
GEN: No distress, awake, Ox3, lying flat in bed, no shortness of breath, not on oxygen
HEENT: supple, anicteric, mmm
LUNGS: Left base crackles
CV: Irregular irregular, 2 out of 6 systolic murmur
EXT: Trace bilateral lower extremity edema
NEURO: Gross non-focal
SKIN: No rash
[2024-05-24 11:15] VITALS: BP 121/55
[2024-05-24] MEDS: ELIQUIS 2.5 MG PO ×2 (11:29→19:48)
[2024-05-24] MEDS: KCL 20 MEQ PO (11:29)
[2024-05-24] MEDS: VITAMIN C 1000 MG PO (11:29)
[2024-05-24] MEDS: MAGNESIUM OXIDE 500 MG PO (11:29)
[2024-05-24] MEDS: THERAGRAN 1 TABLET PO (11:29)
[2024-05-24] MEDS: PACERONE 200 MG PO (11:29)
[2024-05-24] MEDS: OSCAL CAL 500 500 MG PO ×2 (11:30→19:47)
[2024-05-24] MEDS: ZETIA 10 MG PO (11:30)
[2024-05-24] MEDS: VITAMIN D3 (cholecalciferol) 25 MCG PO (11:30)
[2024-05-24] MEDS: TOPROL XL 25 MG PO (11:32)
[2024-05-24] MEDS: LASIX 40 MG IV (11:32)
[2024-05-24] MEDS: FLUSH (NSS) 1 FLUSH IV (11:34)
[2024-05-24] MEDS: B COMPLEX w/VITAMIN C 1 CAPLET PO (11:41)
[2024-05-24] MEDS: KLOR-CON PO (12:33)
--- NOTE | 2024-05-24 13:39 | CM ---
Chart reviewed and will follow with patient progress and assist with discharge planning needs for patient.
Plan; Home no needs when stable.
[2024-05-24 16:00] VITALS: BP 92/55
[2024-05-24 19:47] VITALS: BP 95/53
[2024-05-24] MEDS: TYLENOL 500 MG PO (19:47)
[2024-05-24] MEDS: ASPIR LOW (ENTERIC COATED) 81 MG PO (20:59)
[2024-05-24] MEDS: BENADRYL 25 MG PO (21:01)
[2024-05-24 22:53] VITALS: BP 95/65
[2024-05-25] VITALS (9 sets, daily range): BP systolic 98–132; BP diastolic 47–73; PULSE 63; O2SAT 99; BMI 21.6
[2024-05-25] MEDS: SYNTHROID 100 MCG PO (05:35)
[2024-05-25 08:12] LABS: Hematocrit 22.3 % (37.0-47.0); Hemoglobin 7.4 g/dL (12.0-16.0); Mean Corp Hgb Conc. 33.2 g/dL (33.0-37.0); Mean Corpuscular Hgb 37.8 pg (27.0-31.0); Mean Corpuscular Volume 113.8 fL (81.0-99.0); Mean Platelet Volume 10.5 fL (7.4-10.4); Platelet Count 302 10^3/uL (130-400); Red Blood Cell Count 1.96 10^6/uL (4.20-5.40); Red Cell Dist. Width 18.2 % (11.5-14.5); White Blood Cell Count 5.7 10^3/uL (4.8-10.8)
--- NOTE | 2024-05-25 08:21 | W.PN.HOSP.TC ---
Addendum entered and electronically signed by Carey Reddy MD 05/25/24 09:04:
discussed case with on-call [employer] Developer, who does not feel this meets inpatient eval, which I agree.
at home independent call center agent [employer] will discuss with pt's primary [employer] C[employer] Developer to see if there is anything else they can offer.
Will cancel formal consult for now. This will be more like a curbside
Original Note:
Today's Communication/Plan
-
see A/P
Assessment / Plan
Assessment / Plan
HPI: 79-year-old female with past medical history of diastolic CHF, recent EF of around 50 to 60% while at [facility] in February, history of atrial fibrillation status post ablation, cardioversion, sick sinus syndrome status post pacemaker placement, she
is anticoagulated on Eliquis, she is on antiarrhythmic amiodarone, history of chronic edema secondary to CHF as well as hypoalbuminemia, celiac disease, hypothyroid diagnosed prior to initiation of amiodarone, chronic anemia, she was recently
admitted at [facility] for severe CHF pleural effusion status post thoracenteses with chest tube placement and discontinuation, ultimately discharged on torsemide 20 mg daily and spironolactone comes to the emergency department via cardiology clinic for
follow-up evaluation.
Patient seen by tube station attendant on DOA and she had about 4 pound weight gain since discharge from [facility]. She has worsening of her chronic dyspnea on exertion and has chronic SOB.
A/P:
# Acute on chronic diastolic heart failure
SALES DESIGNER on torsemide 20 po daily,
Cont current IV lasix 40mg IV daily, follow daily weight and i/os
strict fluid restriction
continue Toprol, spironolactone with hold parameters.
cardiology on board
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
Small volume ascites noted on Abd US
Pt has follow-up with GI Dr Toby priest
GI CS for additional recc
# Persistent atrial fibrillation
# Prior PVI (2017)
# s/p PFA 08/24/23
continue SALES DESIGNER eliquis 2.5 bid
continue SALES DESIGNER metoprolol
continue SALES DESIGNER amio
# Hypothyroidism
TSH 40, follow FT4
pt states that Synthroid dose was increased to 100 recently. Recc to cont 100 mcg, check repeat TSH reflex FT4 outpt in 4 weeks with PCP before further dose adjustment- pt informed
# Chronic pleural effusions.
# VATS on the left
S/P thoracentesis in the past and most recently again at [facility].
No acute hypoxia.
Diuresis as above.
s/p IR L thoracentesis 05/23, 1350 cc thin light yellow pleural fluid evacuated. Transudative fluid
# Acute on chronic anemia
Monitor Hgb, today at 7.4, will transfuse 1 unit PRBC
recent b12, folate level WNL
recent iron panel acceptable (iron level 70, ferritin 73)
recent EGD without GI bleed.
continue iron supplementation for now
# Chronic Hyponatremia
Monitor
# Hypokalemia
repleted K
# Celiac disease
gluten free diet
DVT PPX on eliquis
Code status - full code
Dispo: PT eval
d/w son on the phone.
total time spent 51 min
Anticipated Discharge: 24 - 48 hours
Subjective/Interval History
-
Date of Service: May 25, 2024
Objective Data
-
Labs:
Laboratory Results
05/25/24
07:41
WBC 5.7
Hgb 7.4 L
Hct 22.3 L
Plt Count 302
Sodium Pending
Potassium Pending
Chloride Pending
Carbon Dioxide Pending
BUN Pending
Creatinine Pending
Glucose Pending
Calcium Pending
Vital Signs:
Vital Signs
Temp Pulse Resp BP Pulse Ox
36.3 C 73 20 102/53 96
05/25/24 03:46 05/25/24 03:46 05/25/24 03:46 05/25/24 03:46 05/25/24 03:46
I&O
05/24/24 05/25/24 05/26/24
06:59 06:59 06:59
Intake Total 0 / 0 960 / 960
Output Total 1100 / 1100
Balance 0 / 0 -140 / -140
Review of Systems
-
History Source: Patient
All other systems: Reviewed and negative
Physical Exam
-
General: No Apparent Distress, Comfortable and Other (Thin and frail appearing); Negative Respiratory Distress
HEENT: Normocephalic, Atraumatic and Moist Mucous Membranes
Respiratory: Clear to Auscultation and Non Labored Respirations; Negative Accessory Resp Muscle Use
Cardiac: S1/S2 and Murmur
GI: Soft, Nontender and Normal Bowel Sounds
Musculoskeletal: No Clubbing, No Cyanosis, Edema, Right Lower Extrem (mild) and Edema, Left Lower Extrem (mild)
Skin: Warm and Dry
Neuro: Awake and Alert
Psych: Calm and Intact Judgement/Insight
Data Reviewed
-
Diagnostic Radiology: Report Reviewed by me
Ultrasound: Report Reviewed by me
Labs: Labs Reviewed by me
[2024-05-25] MEDS: ALDACTONE 12.5 MG PO (08:41)
[2024-05-25] MEDS: OSCAL CAL 500 500 MG PO ×2 (08:41→20:41)
[2024-05-25] MEDS: B COMPLEX w/VITAMIN C 1 CAPLET PO (08:41)
[2024-05-25] MEDS: LASIX 40 MG IV (08:41)
[2024-05-25] MEDS: ZETIA 10 MG PO (08:41)
[2024-05-25] MEDS: VITAMIN C 1000 MG PO (08:41)
[2024-05-25] MEDS: THERAGRAN 1 TABLET PO (08:42)
[2024-05-25] MEDS: VITAMIN D3 (cholecalciferol) 25 MCG PO (08:42)
[2024-05-25] MEDS: PACERONE 200 MG PO (08:42)
[2024-05-25] MEDS: MAGNESIUM OXIDE 500 MG PO (08:42)
[2024-05-25] MEDS: ELIQUIS 2.5 MG PO ×2 (08:42→20:41)
[2024-05-25] MEDS: KCL 20 MEQ PO (08:42)
[2024-05-25] MEDS: TOPROL XL 25 MG PO (08:43)
[2024-05-25 08:44] LABS: Blood Urea Nitrogen 31 mg/dl (7-17); Carbon Dioxide 25 mmol/L (22-30); Chloride 104 mmol/L (98-107); Estimated Creatinine Clearance 40 ml/min; Glucose 90 mg/dl (70-99); Magnesium 1.8 mg/dl (1.6-2.3); Potassium 3.7 mmol/L (3.5-5.1); Sodium 131 mmol/L (135-145)
--- NOTE | 2024-05-25 11:53 | W.PN.CARDCBS ---
Addendum entered and electronically signed by Brian Winkler MD 05/25/24 16:34:
I saw and examined the patient.
The Director Of Financial Aid's note was reviewed and I agree with the note.
Comment:
GEN: No distress, awake, Ox3
HEENT: supple, anicteric, mmm
LUNGS: dec BS right base
CV: Reg, S1/S2, 03/12 syst LSB, no gallop
ABD: soft, BS+, NT/ND
EXT: No edema
NEURO: Gross non-focal
SKIN: No rash
Plan:
She remains chronically ill. Agree with plan for transfusion today and follow hemoglobin.
Continue gentle IV Lasix. She had right pleural effusion tapped 05/23/2024 with symptomatic improvement in 1350 cc of fluid removed.
I suspect her chronic pleural effusion is multifactorial including partial hypoalbuminemia and deconditioning and malnourished. Encourage nutrition and therapy.
Her long-term prognosis is somewhat poor. She remains hyponatremic with sodium of 131.
Original Note:
Today's Communication / Plan
-
-cont IV diuresis
Impression / Plan
-
PCP: Stella Sutherland PA-C
Licensed Sales Assistant: Dr. Kiera Diaz
Impression:
Presented with SOB
Acute on chronic HFpEF, global longitudinal strain -14.2 on echo 11/2023, negative evaluation for amyloid
Recurrent pleural effusion
s/p Left Asept pleural catheter placement 11/29/23, removed after admission to [place] with VATS and pulmonary decortication 01/2024
now with right sided pleural effusion 05/23/24 status post right thoracentesis 05/23/2024 for 1350 cc
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
Hyponatremia
Paroxysmal atrial fibrillation
Prior PVI (2016)
s/p PFA 08/24/23
Tikosyn stopped during [facility] rehab stay 02/2024 and now on chronic amiodarone
Chronic anticoagulation on Eliquis
Takotsubo CM w/recovered EF (2005)
Negative workup for cardiac amyloid
HLD
HTN
MR
Renal nephrosis
Lung Nodule (2021, stable)
Anemia
celiac dz
Echo 05/18/2023: EF 69%, stage II diastolic dysfunction. Moderately dilated right atrium. Mild to moderate MR. Mild TR. PAP 36 mmHg. Small pericardial effusion
Echo 11/25/2023: EF 55-60%, global longitudinal strain is -14.2, stage III diastolic dysfunction, mild MR, dilated left atrium, aortic sclerosis, normal RV, pulmonary artery systolic pressure 45-50 mmHg
Plan:
--cont IV diuresis, wt down 4 lbs since admission to 130 lbs 05/25/2024. Pt reports home wt 130-134 lbs. Reports SOB improved since thoracentesis but still present. Still with signif LE edema. Patient was taking torsemide 20 mg daily just prior
to admission.
--cont outpt GDMT: Toprol 25 mg daily, Spironolactone 12.5 mg MWF has been continued. Patient is not chronically on NILAY/ARB/ARNI due to hypotension. Patient is not chronically on an SGLT2 inhibitor due to history of UTI
-s/p thoracentesis for 1350 cc on 05/23/2024, light yellow pleural fluid, sent for culture. Patient previously had recurrent left-sided pleural effusion which appears improved following admission to [place] with VATS and pulmonary decortication
01/2024.
-getting 1 u prbc today for Hgb 7.4
-overall complex case. Patient with hypervolemia that is multifactorial including hypoalbuminemia. Patient has had severe and persistent hypoalbuminemia and at this point we do not have a unifying diagnosis. Outpatient upper endoscopy from
05/10/2024 showed moderate portal hypertensive gastropathy. No evidence of cirrhosis on most recent U/S. for liver U/S with doppler on 05/29/2024-follows Dr Luis
-Abdominal ultrasound suggested small volume ascites
-telem personally reviewd: NSR 60-70s.
-Patient with known paroxysmal A-fib. Device check in the office on 05/22/2024 showed an A-fib burden of 1%. Having paroxysms of afib on telem-asymptomatic and rate controlled.
-cont Amio, Toprol, Eliquis 2.5 mg BID (age 79, Cre 1.1, wt 60.24 kg)
-W previously patient was noted to have multiple atrial tachycardias and if there is breakthrough despite amiodarone would consider AVJ as patient has PPM in place.
Progress Note - Licensed Sales Assistant
Subjective
Date of Service: May 25, 2024
-wt down 4 lbs since admit
-getting 1u prbc today
-still with SOB but improved since thoracentesis
Objective
Labs:
05/25/24 07:41
05/25/24 07:41
Labs
Hgb 7.4 g/dL (12.0-16.0) L 05/25/24 07:41
Hct 22.3 % (37.0-47.0) L 05/25/24 07:41
Plt Count 302 10^3/uL (130-400) 05/25/24 07:41
PT 13.8 Sec (11.4-14.6) 05/22/24 19:49
INR 1.03 05/22/24 19:49
Sodium 131 mmol/L (135-145) L 05/25/24 07:41
Potassium 3.7 mmol/L (3.5-5.1) 05/25/24 07:41
BUN 31 mg/dl (7-17) H 05/25/24 07:41
Creatinine 1.0 mg/dL (0.6-1.0) 05/25/24 07:41
Glucose 90 mg/dl (70-99) 05/25/24 07:41
Troponins
05/22/24
19:49
Troponin I < 0.012
Vital Signs and I&O:
Vital Signs
Temp Pulse Resp BP Pulse Ox
97.4 F 73 18 121/55 97
05/25/24 11:08 05/25/24 11:08 05/25/24 11:08 05/25/24 11:08 05/25/24 11:08
Vital Signs
Temp Pulse Resp BP Pulse Ox
97.4 F 73 18 121/55 97
05/25/24 11:08 05/25/24 11:08 05/25/24 11:08 05/25/24 11:08 05/25/24 11:08
Intake & Output
05/23/24 05/24/24 05/25/24 05/26/24
06:59 06:59 06:59 06:59
Intake Total 240 / 240 0 / 0 960 / 960
Output Total 1100 / 1100
Balance 240 / 240 0 / 0 -140 / -140
Physical Exam
Physical Exam
GEN: No distress, awake, Ox3
HEENT: supple, anicteric, mmm
LUNGS: decreased B/L bases
CV: Reg, S1/S2, 1/6 syst LSB, no murmur
ABD: soft, BS+, NT/ND
EXT: 1+ pitting to thighs
NEURO: Gross non-focal
SKIN: No rash
--- NOTE | 2024-05-25 16:35 | CM ---
Chart reviewed and plan is for patient to return to home with visiting nurses, options reviewed and patient has selected [facility], [facility] liaison has set up home care.
Plan; Home with [facility].
[2024-05-25] MEDS: ASPIR LOW (ENTERIC COATED) 81 MG PO (21:01)
[2024-05-25] MEDS: BENADRYL 25 MG PO (21:01)
[2024-05-26 03:24] VITALS: BP 102/55
[2024-05-26] MEDS: SYNTHROID 100 MCG PO (05:07)
[2024-05-26 05:51] VITALS: BMI 21.9
[2024-05-26 06:22] LABS: Blood Urea Nitrogen 30 mg/dl (7-17); Calcium 7.8 mg/dl (8.4-10.2); Carbon Dioxide 26 mmol/L (22-30); Chloride 104 mmol/L (98-107); Estimated Creatinine Clearance 40 ml/min; Glucose 92 mg/dl (70-99); Magnesium 1.8 mg/dl (1.6-2.3); Potassium 3.7 mmol/L (3.5-5.1); Sodium 131 mmol/L (135-145)
[2024-05-26 06:40] LABS: Hematocrit 26.9 % (37.0-47.0); Mean Corp Hgb Conc. 33.5 g/dL (33.0-37.0); Mean Corpuscular Hgb 36.6 pg (27.0-31.0); Mean Corpuscular Volume 109.3 fL (81.0-99.0); Mean Platelet Volume 10.1 fL (7.4-10.4); Platelet Count 326 10^3/uL (130-400); Red Blood Cell Count 2.46 10^6/uL (4.20-5.40); Red Cell Dist. Width 20.5 % (11.5-14.5); White Blood Cell Count 5.8 10^3/uL (4.8-10.8)
--- NOTE | 2024-05-26 07:30 | W.PN.HOSP.TC ---
Today's Communication/Plan
-
Discharge today
Assessment / Plan
Assessment / Plan
Physical Exam
General: No Apparent Distress, Comfortable and Other (Thin and frail appearing); Negative Respiratory Distress
HEENT: Normocephalic, Atraumatic and Moist Mucous Membranes
Respiratory: Clear to Auscultation Bilaterally
Cardiac: S1/S2. RRR.
GI: Soft, Nontender and Normal Bowel Sounds
Musculoskeletal: No Cyanosis. Trace edema bilateral lower extremities
Skin: Warm and Dry
Neuro: Awake and Alert
Psych: Calm and Intact Judgement/Insight
Assessment/Plan
HPI: 79-year-old female with past medical history of diastolic CHF, recent EF of around 50 to 60% while at [facility] in February, history of atrial fibrillation status post ablation, cardioversion, sick sinus syndrome status post pacemaker placement, she
is anticoagulated on Eliquis, she is on antiarrhythmic amiodarone, history of chronic edema secondary to CHF as well as hypoalbuminemia, celiac disease, hypothyroid diagnosed prior to initiation of amiodarone, chronic anemia, she was recently
admitted at [facility] for severe CHF pleural effusion status post thoracenteses with chest tube placement and discontinuation, ultimately discharged on torsemide 20 mg daily and spironolactone comes to the emergency department via cardiology clinic for
follow-up evaluation.
Patient seen by music typographer on DOA and she had about 4 pound weight gain since discharge from [facility]. She has worsening of her chronic dyspnea on exertion and has chronic SOB.
# Acute on chronic diastolic heart failure
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
Was on IV lasix --> now can transition back to oral torsemide 20 mg daily.
strict fluid restriction
Continue Toprol 25 mg daily, spironolactone 12.5 mg MWF
Patient is not on NILAY/ARB/ARNI due to hypotension and patient is not on an SGLT2 inhibitor due to history of UTI
cardiology on board
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
#History of Takotsubo CM w/recovered EF (2005)
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
Small volume ascites noted on Abd US
Pt has follow-up with GI Dr Luis outpt
GI CS for additional recc
Dr. Reddy discussed case with on-call Rand Sewer, who does not feel this meets inpatient eval, which I agree.
teacher physically impaired Rand Sewer will discuss with pt's primary Rand Sewer to see if there is anything else they can offer.
Will cancel formal consult for now. This will be more like a curbside
# Paroxysmal atrial fibrillation
# Prior PVI (2016)
# s/p PFA 08/24/23
continue HONING MACHINE TRY OUT SETTER eliquis 2.5 bid
continue HONING MACHINE TRY OUT SETTER metoprolol
continue HONING MACHINE TRY OUT SETTER amio
# Hypothyroidism
TSH 40, follow FT4
pt states that Synthroid dose was increased to 100 recently. Recc to cont 100 mcg, check repeat TSH reflex FT4 outpt in 4 weeks with PCP before further dose adjustment- pt informed
# Chronic pleural effusions suspected multifactorial from partial hypoalbuminemia and deconditioning and malnourished
# Right pleural effusion status post thoracentesis on 05/23/2024 with symptomatic improvement in 1350 cc of fluid removed
# History of recurrent left-sided pleural effusion status post admission to [facility] with VATS and pulmonary decortication 01/2024.
S/P thoracentesis in the past and most recently again at [facility].
No acute hypoxia.
Diuresis as above.
s/p IR L thoracentesis 05/23, 1350 cc thin light yellow pleural fluid evacuated. Transudative fluid
-Follow-up on thoracentesis pathology results outpatient
#Lung Nodule
# Acute on chronic anemia
Monitor Hgb, today at 7.4, will transfuse 1 unit PRBC
recent b12, folate level WNL
recent iron panel acceptable (iron level 70, ferritin 73)
recent EGD without GI bleed.
continue iron supplementation for now
# Chronic Hyponatremia
Monitor
Continue diuresis and PO fluid restriction
# Hypokalemia
repleted K
# Celiac disease
gluten free diet
#Moderate portal hypertensive gastropathy
-Follow-up with Dr. Luis outpatient
DVT PPX on eliquis
Code status - full code
Dispo: Home with home care
More than 30 minutes spent in discharge including
Final examination of the patient
Summarizing hospital stay
Instructions for continuing care to all relevant caregivers
Preparation of discharge records, prescriptions, and referral forms
Total time spent (in minutes): 37
Anticipated Discharge: Today
Subjective/Interval History
-
Date of Service: May 26, 2024
Patient was seen and examined. She reports overall improved compared to when she came in, she denied any new shortness of breath or chest pain.
Objective Data
-
Labs:
Laboratory Results
05/26/24
04:58
WBC 5.8
Hgb 9.0 L D
Hct 26.9 L
Plt Count 326
Sodium 131 L
Potassium 3.7
Chloride 104
Carbon Dioxide 26
BUN 30 H
Creatinine 1.0
Glucose 92
Calcium 7.8 L
Vital Signs:
Vital Signs
Temp Pulse Resp BP Pulse Ox
97.8 F 70 18 102/55 95
05/26/24 03:24 05/26/24 03:24 05/26/24 03:24 05/26/24 03:24 05/26/24 03:24
I&O
05/25/24 05/26/24 05/27/24
06:59 06:59 06:59
Intake Total 960 / 960 1210 / 1210
Output Total 1100 / 1100
Balance -140 / -140 1210 / 1210
[2024-05-26 07:53] VITALS: BP 110/50
[2024-05-26] MEDS: VITAMIN C 1000 MG PO (07:56)
[2024-05-26] MEDS: B COMPLEX w/VITAMIN C 1 CAPLET PO (07:56)
[2024-05-26] MEDS: MAGNESIUM OXIDE 500 MG PO (07:56)
[2024-05-26] MEDS: TOPROL XL 25 MG PO (07:56)
[2024-05-26] MEDS: OSCAL CAL 500 500 MG PO (07:56)
[2024-05-26] MEDS: ELIQUIS 2.5 MG PO (07:56)
[2024-05-26] MEDS: VITAMIN D3 (cholecalciferol) 25 MCG PO (07:56)
[2024-05-26] MEDS: ZETIA 10 MG PO (07:56)
[2024-05-26] MEDS: THERAGRAN 1 TABLET PO (07:57)
[2024-05-26] MEDS: PACERONE 200 MG PO (07:57)
[2024-05-26] MEDS: KCL 20 MEQ PO (07:58)
[2024-05-26] MEDS: LASIX 40 MG IV (07:58)
[2024-05-26 08:06] LABS: Albumin 1.5 g/dl (3.5-5.0)
--- NOTE | 2024-05-26 09:18 | W.PN.CARDCBS ---
Today's Communication / Plan
-
Wt appears stable and at her baseline. Pt reports home wt 130-134 lbs. Transition back to her oral torsemide 20 mg daily.
Cr remains stable.
-Cont outpt GDMT: Toprol 25 mg daily, Spironolactone 12.5 mg MWF has been continued. Not chronically on NILAY/ARB/ARNI due to hypotension.
-Not chronically on an SGLT2 inhibitor due to history of UTI
H/H improved after transfusion to 9.
She remains hyponatremic with chronic hyponatremia.
Patient with known paroxysmal A-fib. Device check in the office on 05/22/2024 showed an A-fib burden of 1%. Having paroxysms of afib on telem-asymptomatic and rate controlled.
-cont Amio, Toprol, Eliquis 2.5 mg BID (age 79, Cre 1.1, wt 60.24 kg)
Right pleural effusion tapped 05/23/2024 with symptomatic improvement in 1350 cc of fluid removed.
-Patient previously had recurrent left-sided pleural effusion which appears improved following admission to [place] with VATS and pulmonary decortication 01/2024.
Suspect her chronic pleural effusion is multifactorial including partial hypoalbuminemia and deconditioning and malnourished. Cont to encourage nutrition and therapy.
Her long-term prognosis remains somewhat poor.
Will arrange outpt cardiac follow up.
Please recall if needed.
Impression / Plan
-
.
PCP: Stella Sutherland PA-C
Project Consultant: Dr. Kiera Diaz
Impression:
Presented with SOB
Acute on chronic HFpEF, global longitudinal strain -14.2 on echo 11/2023, negative evaluation for amyloid
Recurrent pleural effusion
s/p Left Asept pleural catheter placement 11/29/23, removed after admission to [place] with VATS and pulmonary decortication 01/2024
now with right sided pleural effusion 05/23/24 status post right thoracentesis 05/23/2024 for 1350 cc
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
Hyponatremia
Paroxysmal atrial fibrillation
Prior PVI (2016)
s/p PFA 08/24/23
Tikosyn stopped during [facility] rehab stay 02/2024 and now on chronic amiodarone
Chronic anticoagulation on Eliquis
Takotsubo CM w/recovered EF (2005)
Negative workup for cardiac amyloid
HLD
HTN
MR
Renal nephrosis
Lung Nodule (2021, stable)
Anemia
celiac dz
Echo 05/18/2023: EF 69%, stage II diastolic dysfunction. Moderately dilated right atrium. Mild to moderate MR. Mild TR. PAP 36 mmHg. Small pericardial effusion
Echo 11/25/2023: EF 55-60%, global longitudinal strain is -14.2, stage III diastolic dysfunction, mild MR, dilated left atrium, aortic sclerosis, normal RV, pulmonary artery systolic pressure 45-50 mmHg
Plan:
She is chronically ill.
Wt appears stable and at her baseline. Pt reports home wt 130-134 lbs. Transition back to her oral torsemide 20 mg daily.
Cr remains stable.
-Cont outpt GDMT: Toprol 25 mg daily, Spironolactone 12.5 mg MWF has been continued. Not chronically on NILAY/ARB/ARNI due to hypotension.
-Not chronically on an SGLT2 inhibitor due to history of UTI
H/H improved after transfusion to 9.
She remains hyponatremic with chronic hyponatremia.
Patient with known paroxysmal A-fib. Device check in the office on 05/22/2024 showed an A-fib burden of 1%. Having paroxysms of afib on telem-asymptomatic and rate controlled.
-cont Amio, Toprol, Eliquis 2.5 mg BID (age 79, Cre 1.1, wt 60.24 kg)
Right pleural effusion tapped 05/23/2024 with symptomatic improvement in 1350 cc of fluid removed.
-Patient previously had recurrent left-sided pleural effusion which appears improved following admission to [place] with VATS and pulmonary decortication 01/2024.
Suspect her chronic pleural effusion is multifactorial including partial hypoalbuminemia and deconditioning and malnourished. Cont to encourage nutrition and therapy.
Her long-term prognosis remains somewhat poor.
Will arrange outpt cardiac follow up.
Please recall if needed.
Additional hx: Outpatient upper endoscopy from 05/10/2024 showed moderate portal hypertensive gastropathy. No evidence of cirrhosis on most recent U/S. for liver U/S with doppler on 05/29/2024-follows Dr Luis
Progress Note - Project Consultant
Subjective
Date of Service: May 26, 2024
Pt seen and examined. No complaints. No chest pain.
Objective
Labs:
05/26/24 04:58
05/26/24 04:58
Labs
Hgb 9.0 g/dL (12.0-16.0) L D 05/26/24 04:58
Hct 26.9 % (37.0-47.0) L 05/26/24 04:58
Plt Count 326 10^3/uL (130-400) 05/26/24 04:58
PT 13.8 Sec (11.4-14.6) 05/22/24 19:49
INR 1.03 05/22/24 19:49
Sodium 131 mmol/L (135-145) L 05/26/24 04:58
Potassium 3.7 mmol/L (3.5-5.1) 05/26/24 04:58
BUN 30 mg/dl (7-17) H 05/26/24 04:58
Creatinine 1.0 mg/dL (0.6-1.0) 05/26/24 04:58
Glucose 92 mg/dl (70-99) 05/26/24 04:58
Vital Signs and I&O:
Vital Signs
Temp Pulse Resp BP Pulse Ox
97.7 F 66 18 110/50 95
05/26/24 07:53 05/26/24 07:53 05/26/24 07:53 05/26/24 07:53 05/26/24 07:53
Vital Signs
Temp Pulse Resp BP Pulse Ox
97.7 F 66 18 110/50 95
05/26/24 07:53 05/26/24 07:53 05/26/24 07:53 05/26/24 07:53 05/26/24 07:53
Intake & Output
05/24/24 05/25/24 05/26/24 05/27/24
06:59 06:59 06:59 06:59
Intake Total 0 / 0 960 / 960 1210 / 1210
Output Total 1100 / 1100
Balance 0 / 0 -140 / -140 1210 / 1210
Physical Exam
Physical Exam
General: No acute distress, AAOX3
Neck: Negative JVD
Heart: Regular, Negative S3 positive S1/S2, Negative S4, No murmur
Lungs: CTA b/l, negative wheezes/rales/rhonchi
Abd: Positive BS, NT/ND, neg rebound/rigidity/guarding
Ext: Negative cyanosis/clubbing/edema
Neuro: nonfocal
[2024-05-26 11:59] VITALS: BP 119/61
--- NOTE | 2024-05-26 15:09 | W.DCSUMMARY ---
Discharge Summary
Discharge Data
Date of Admission: 05/22/24
Date of Discharge: 05/26/24
Total time spent discharging patient (in min): 37
-
Pending Results: Yes
Additional Pending Results:
Microbiology and pathology results from hospitalization
Hospital Course
79-year-old female with past medical history of diastolic heart failure, recent ejection fraction of around 50 to 60% while at [place] in February 2024, history of atrial fibrillation status post ablation (on Amiodarone and Eliquis), cardioversion,
sick sinus syndrome status post pacemaker placement, history of chronic edema secondary to heart failure as well as hypoalbuminemia, celiac disease, hypothyroidism, chronic anemia, recent admission at [place] for severe CHF pleural effusion status post
thoracenteses with chest tube placement, presented with weight gain and shortness of breath. Patient was admitted with heart failure exacerbation and started on intravenous Lasix. Cardiology was consulted. Patient had a right-sided thoracentesis on
05/23/24 with 1350 cc thin light yellow pleural fluid removed -- it was transudative fluid, sample were sent for microbiology and pathology studies. Given patient's hemoglobin of 7.4, she received 1 unit of packed red blood cells. patient would need
close follow-up with her outpatient call out clerk and also her primary care provider for re-evaluation of thyroid function tests.
Discharge Plan
-
Patient Disposition: Home with Home Care
Discharge Diagnosis/Procedures: #Acute on chronic heart failure with preserved ejection fraction
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
#History of Takotsubo Cardiomyopathy with recovered ejection fraction (2005)
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
#Paroxysmal atrial fibrillation
#Prior PVI (2016)
#Status post PFA 08/24/23
#Hypothyroidism
#Chronic pleural effusions suspected multifactorial from partial hypoalbuminemia and deconditioning and malnourished
#Right pleural effusion status post thoracentesis on 05/23/2024 with symptomatic improvement in 1350 cc of fluid removed
#History of recurrent left-sided pleural effusion status post admission to [place] with VATS and pulmonary decortication 01/2024
#Suspected Atelectasis
#Lung Nodule
#Acute on chronic anemia
#Chronic Hyponatremia
#Hypokalemia
#Celiac disease
#Moderate portal hypertensive gastropathy
#Borderline mild wall thickening of the gallbladder which may be secondary to ascites or nonfasting state as per radiologist report on abdominal ultrasound
#2.3 x 2.4 cm nodular focus along the superior pole the right kidney on abdominal ultrasound imaging
Condition: Fair
Diet: 2 Gram Sodium and Other diet
Additional Diets: Daily oral 40 ounces fluid restriction
Activity: As tolerated
Blood Work: CBC, BMP and Magnesium with your primary care provider's office within the next 3 to 4 days
Other Services: VN
Specialty Instructions: Weigh Daily- Call MD for wt gain/loss 3 lbs overnight/5 lbs in 1 week
Instructions: *PCP/Other Installation Coordinator Heart Failure Instructions
Referrals:
Moshe Luis MD [Active] - in two to three weeks (Hospital follow-up; Borderline mild wall thickening of the gallbladder which may be secondary to ascites or nonfasting state as per radiologist report on abdominal ultrasound from May 2024
hospitalization)
Orlando Nolan MD [Active] - in three to four weeks (2.3 x 2.4 cm nodular focus along the superior pole the right kidney on abdominal ultrasound imaging from May 2024 hospitalization)
Robb Rubio MD [Family Provider] - in less than 1 week (Hospital Follow-Up. Re-evaluation of thyroid function tests.)
Gloria Kennedy PA-C [Specified Professional Personl] - 06/11/24 3:20 pm (You have a follow-up appointment with Dr. Diaz's physician bookkeeper assistant, Gloria, at the [place] office. Please call with questions.)
Prescriptions:
Continued
aspirin 81 mg Tablet,Delayed Release (Dr/Ec)
81 mg PO HS
potassium chloride 20 mEq Tablet,Er Particles/Crystals
20 meq PO DAILY
ezetimibe [Zetia] 10 mg Tablet
10 mg PO DAILY
Eliquis 2.5 mg Tablet
2.5 mg PO BID
torsemide 20 mg Tablet
20 mg PO DAILY
amiodarone 200 mg Tablet
200 mg PO DAILY
Vitamin C 1,000 mg Tablet Extended Release
1,000 mg PO DAILY
levothyroxine 50 mcg Tablet
100 mcg PO DAILY
vitamin B complex Tablet
1 tab PO DAILY
omega-3 fatty acids-vitamin E 1,000 mg Capsule
1 cap PO DAILY
cholecalciferol (vitamin D3) [Vitamin D3] 50 mcg (2,000 unit) Tablet
25 mcg PO DAILY
jhmmrgtbjrnh-umaf-ftfvv acid 18-400 mg-mcg Tablet
1 tab PO DAILY
[place] Extract 1,000 mg Capsule
800 mg PO DAILY
spironolactone 25 mg tablet
12.5 mg PO .MOWEFR
metoprolol succinate 25 mg tablet extended release 24 hr
25 mg PO DAILY
Calcium 600
600 mg PO BID
Hair,Nails and Skin Vitamin
1 tab PO DAILY
diphenhydramine HCl [Benadryl] 25 mg Capsule
25 mg PO HS PRN (Reason: insomnia)
acetaminophen
500 mg PO Q6HPRN PRN (Reason: h/a,mild pain,t >100.4f)
magnesium oxide
400 mg PO DAILY
Held
pitavastatin calcium [Livalo] 1 mg Tablet
1 mg PO MOWEFR
Hold Instructions: Resume on 06/02/24. Contact your primary care provider within 1 week to find out if and when you should continue taking this medication.
Discontinued
Klor-Con
20 meq PO DAILY
Discharge Orders:
Discharge Patient (As Directed); Ordered 05/26/24
Ordered By: Thierno Lori
Discharge Date and Time
Discharge Date/Time: 05/26/24 16:15
Print Language: BENGALI
--- NOTE | 2024-05-26 15:13 | CM ---
Met with patient at bedside to discuss discharge plan
reported that her grandson will transport home
IMM benefit explained; form signed @ 1515
Plan: discharge to home with home health services from [facility]
[2024-05-26 15:23] VITALS: BP 126/61
--- NOTE | 2024-05-28 11:02 | W.HF.CON ---
Heart Failure
- LV Function
Left ventricular function study result: LV Ejection fraction >/= 50% (ECHO 11/25/23)
Ejection Fraction Percentage: 55-60
- ARNI
Patient already on ARNI: No
Heart Failure ARNI Not Indicated: LV Ejection Fraction >/= 40%
- ACEI/ARB
Patient already on ACEI/ARB: No
Heart Failure ACEI/ARB Not Indicated: LV Ejection Fraction > 40%
- Beta Benjy
Patient already on Evidence Based Beta Benjy: Yes
- Mineralocorticord Receptor Antagonist
Patient already on MRA: Yes
- SGLT-2 Inhibitor
Patient already on SGLT-2 Inhibitor: No
Heart Failure SGLT-2 Inhibitor Contraindication: Patient Refusal (UTIs)
- Afib Anticoagulation
Patient already on Anticoagulation for Afib: Yes
- NYHA CHF Classification
NYHA CHF Classification Level: Class III - Symptoms w/ min exertion, interferes w/ nml daily activity
- ACC/AHA Stage
ACC/AHA Stage: Stage C: Symptomatic Heart Failure
== END 2024-05-26 16:15 | disposition home health service (06) | DRG 291 ==
LOC: 4 WEST ACU 22:53
PROVIDERS: Clinical Nurse Specialist Family Health; Emergency Medicine; Internal Medicine; Physician Assistant Medical; Radiology Vascular & Interventional Radiology; ADMITTING PHYSICIAN Internal Medicine; ATTENDING PHYSICIAN Hospitalist; CONSULT PHYSICIAN Internal Medicine Cardiovascular Disease; EMERGENCY PHYSICIAN Emergency Medicine; FAMILY PHYSICIAN Internal Medicine
PROC: 0W993ZZ Drainage of Right Pleural Cavity, Percutaneous Approach (ICD-10-PCS; 2024-05-23)
PROC: 30233N1 Transfusion of Nonautologous Red Blood Cells into Peripheral Vein, Percutaneous Approach (ICD-10-PCS; 2024-05-25)
DX: I13.0 Hypertensive heart and chronic kidney disease with heart failure and stage 1 through stage 4 chronic kidney disease, or unspecified chronic kidney disease (principal); I50.33 Acute on chronic diastolic (congestive) heart failure; E87.1 Hypo-osmolality and hyponatremia; K76.6 Portal hypertension; J98.11 Atelectasis; R18.8 Other ascites; R64 Cachexia; N18.32 Chronic kidney disease, stage 3b; E88.09 Other disorders of plasma-protein metabolism, not elsewhere classified; I48.0 Paroxysmal atrial fibrillation; E03.9 Hypothyroidism, unspecified; I49.5 Sick sinus syndrome; Z95.0 Presence of cardiac pacemaker; K90.0 Celiac disease; D63.1 Anemia in chronic kidney disease; Z79.01 Long term (current) use of anticoagulants; Z87.440 Personal history of urinary (tract) infections; R91.1 Solitary pulmonary nodule; E87.6 Hypokalemia; K31.89 Other diseases of stomach and duodenum; E78.5 Hyperlipidemia, unspecified; Z87.441 Personal history of nephrotic syndrome; K52.832 Lymphocytic colitis; Z87.891 Personal history of nicotine dependence; Z88.1 Allergy status to other antibiotic agents; Z88.0 Allergy status to penicillin; Z79.82 Long term (current) use of aspirin; Z79.890 Hormone replacement therapy; J43.9 Emphysema, unspecified; Z79.899 Other long term (current) drug therapy; Z11.52 Encounter for screening for COVID-19; I5A Non-ischemic myocardial injury (non-traumatic); Z68.21 Body mass index [BMI] 21.0-21.9, adult
CPT/HCPCS: 88305; 32555; 71045; 71046; 76700; 80048; 80053; 82040; 82150; 82607; 82728; 82746; 82945; 83540; 83550; 83615; 83735; 83880; 83986; 84157; 84439; 84443; 84478; 84484; 85025; 85027; 85610; 86850; 86870; 86900; 86901; 86920; 86922; 87015; 87070; 87116; 87205; 87811; 88112; 89051; 93005; 96374; 97163; 99285; P9016

== ENCOUNTER → 2024-05-29 10:57 | Outpatient (REF) | payer MEDICARE, OTHER, SELFPAY ==
[2024-05-29 13:45] LABS: Free T4 1.56 ng/dl (0.78-2.19)
== END ==
LOC: RAD 10:57
PROVIDERS: ATTENDING PHYSICIAN Specialist; FAMILY PHYSICIAN Internal Medicine
DX: K76.6 Portal hypertension (principal); E03.2 Hypothyroidism due to medicaments and other exogenous substances; R53.82 Chronic fatigue, unspecified
CPT/HCPCS: 36415; 76700; 84439; 84443; 93975

== ENCOUNTER → 2024-05-31 10:44 | Outpatient (REF) | payer MEDICARE, OTHER, SELFPAY | LOC: RAD 10:44 | PROVIDERS: ATTENDING PHYSICIAN Internal Medicine Cardiovascular Disease; FAMILY PHYSICIAN Internal Medicine | DX: R05.9 Cough, unspecified (principal) | CPT/HCPCS: 71046 ==

== ENCOUNTER → 2024-06-11 14:50 | Outpatient (REF) | payer MEDICARE, OTHER, SELFPAY ==
[2024-06-11 15:28] LABS: Urine Albumin 1+ (Neg - Trace); Urine Bilirubin Negative (Negative); Urine Character Clear (Clear); Urine Color Yellow; Urine Glucose Negative (Negative); Urine Ketone Negative (Negative); Urine Leukocyte 2+ (Negative); Urine Nitrite Negative (Negative); Urine Occult Blood Negative (Negative); Urine Specific Gravity 1.015 (<1.030); Urine Urobilinogen 1+ (Neg - 1+)
[2024-06-11 15:40] LABS: % Basophils 0.6 % (0-2); % Eosinophils 0.6 % (0-6); % Immature Granulocytes 0.4 % (0-0.5); % Monocytes 5.6 % (1.7-9.3); % Neutrophils 71.8 % (42.2-75.2); Absolute Basophils 0.1 10^3/uL (0-0.2); Absolute Eosinophils 0.1 10^3/uL (0-0.7); Absolute Lymphocytes 1.7 10^3/uL (1.2-3.4); Absolute Monocytes 0.5 10^3/uL (0.1-0.6); Absolute Neutrophils 5.9 10^3/uL (1.4-6.5); Hematocrit 29.6 % (37.0-47.0); Hemoglobin 9.7 g/dL (12.0-16.0); Mean Corp Hgb Conc. 32.8 g/dL (33.0-37.0); Mean Corpuscular Hgb 36.2 pg (27.0-31.0); Mean Corpuscular Volume 110.4 fL (81.0-99.0); Mean Platelet Volume 9.8 fL (7.4-10.4); Nucleated Red Blood Cells % 0 %; Platelet Count 416 10^3/uL (130-400); Red Blood Cell Count 2.68 10^6/uL (4.20-5.40); Red Cell Dist. Width 16.6 % (11.5-14.5); White Blood Cell Count 8.2 10^3/uL (4.8-10.8)
[2024-06-11 15:50] LABS: Urine Bacteria Few (Negative); Urine Red Blood Cell 0-2 /HPF (0-2); Urine Squamous Cell 21-25 /LPF (Few)
[2024-06-11 15:51] LABS: Urine Hyaline Cast 0-2 /LPF (0-2)
[2024-06-11 15:58] LABS: Blood Urea Nitrogen 33 mg/dl (7-17); Carbon Dioxide 26 mmol/L (22-30); Chloride 98 mmol/L (98-107); Magnesium 1.7 mg/dl (1.6-2.3); Potassium 3.1 mmol/L (3.5-5.1); Sodium 130 mmol/L (135-145)
== END ==
LOC: REG 14:50
PROVIDERS: ATTENDING PHYSICIAN Internal Medicine
DX: I50.9 Heart failure, unspecified (principal); D64.9 Anemia, unspecified; E88.09 Other disorders of plasma-protein metabolism, not elsewhere classified
CPT/HCPCS: 36415; 80051; 81003; 81015; 82565; 83735; 84520; 85025

== ENCOUNTER → 2024-07-10 13:05 | Outpatient (REF) | payer MEDICARE, OTHER, SELFPAY ==
[2024-07-10 14:35] LABS: % Basophils 0.7 % (0-2); % Eosinophils 0.4 % (0-6); % Immature Granulocytes 0.3 % (0-0.5); % Lymphocytes 22.2 % (20.5-51.1); % Monocytes 3.9 % (1.7-9.3); % Neutrophils 72.5 % (42.2-75.2); Absolute Basophils 0.1 10^3/uL (0-0.2); Absolute Lymphocytes 1.5 10^3/uL (1.2-3.4); Absolute Monocytes 0.3 10^3/uL (0.1-0.6); Absolute Neutrophils 4.8 10^3/uL (1.4-6.5); Hematocrit 23.2 % (37.0-47.0); Hemoglobin 7.7 g/dL (12.0-16.0); Mean Corp Hgb Conc. 33.2 g/dL (33.0-37.0); Mean Corpuscular Hgb 36.8 pg (27.0-31.0); Nucleated Red Blood Cells % 0 %; Platelet Count 403 10^3/uL (130-400); Red Blood Cell Count 2.09 10^6/uL (4.20-5.40); Red Cell Dist. Width 17.4 % (11.5-14.5); White Blood Cell Count 6.7 10^3/uL (4.8-10.8)
[2024-07-10 14:47] LABS: Fibrinogen 591 MG/DL (199-459)
[2024-07-10 14:57] LABS: NT-proBNP 1650 pg/ml
[2024-07-10 15:16] LABS: ALT (SGPT) 23 U/L (0-35); AST (SGOT) 40 U/L (14-36); Albumin 1.9 g/dl (3.5-5.0); Alkaline Phosphatase 123 U/L (38-126); Blood Urea Nitrogen 36 mg/dl (7-17); Calcium 7.5 mg/dl (8.4-10.2); Carbon Dioxide 28 mmol/L (22-30); Chloride 99 mmol/L (98-107); Cholesterol 249 mg/dl (50-199); Glucose 96 mg/dl (70-99); Iron 81 ug/dl (37-170); Magnesium 1.9 mg/dl (1.6-2.3); Potassium 3.4 mmol/L (3.5-5.1); Sodium 131 mmol/L (135-145); Total Bilirubin 0.4 mg/dl (0.2-1.3); Total Protein 5.8 g/dl (6.3-8.2); eGFR 50.48
[2024-07-10 15:26] LABS: Percent Saturation 49 % (20-50); Total Iron Binding Capacity 164 ug/dl (265-497)
[2024-07-10 15:33] LABS: Vitamin D, 25-OH*** < 12.8 ng/mL (30-80)
[2024-07-10 15:46] LABS: TSH Reflex To Free T4 2.79 uIU/ml (0.47-4.68)
[2024-07-10 16:22] LABS: Folate 13.4 ng/ml (2.76-20); Vitamin B12 435 pg/ml (239-931)
== END ==
LOC: RAD 13:05
PROVIDERS: ATTENDING PHYSICIAN Specialist; FAMILY PHYSICIAN Internal Medicine; REFERRING PHYSICIAN Internal Medicine Cardiovascular Disease
DX: J90 Pleural effusion, not elsewhere classified (principal); I50.9 Heart failure, unspecified; E03.2 Hypothyroidism due to medicaments and other exogenous substances; K90.0 Celiac disease
CPT/HCPCS: 71046; 80053; 82103; 82306; 82390; 82465; 82607; 82728; 82746; 83540; 83550; 83735; 83880; 84155; 84165; 84443; 84446; 84590; 85025; 85384

== ENCOUNTER 2024-07-16 08:45 | Outpatient (RCR) | payer MEDICARE, OTHER, SELFPAY ==
[2024-07-16 09:00] VITALS: BP 123/60
[2024-07-16 09:31] VITALS: BP 123/60
[2024-07-16 09:52] VITALS: BP 96/48
[2024-07-16 12:10] VITALS: BP 108/47
== END 2024-08-04 23:59 | disposition home or self-care (01) ==
LOC: OID 08:45
PROVIDERS: ATTENDING PHYSICIAN Specialist
DX: D64.9 Anemia, unspecified (principal); K90.0 Celiac disease
CPT/HCPCS: 36415; 36430; 86850; 86870; 86900; 86901; 86902; 86920; 86922; P9016

== ENCOUNTER → 2024-08-02 12:44 | Outpatient (REF) | payer MEDICARE, OTHER, SELFPAY ==
[2024-08-02 13:45] LABS: % Basophils 0.7 % (0-2); % Eosinophils 0.4 % (0-6); % Immature Granulocytes 0.3 % (0-0.5); % Lymphocytes 23.5 % (20.5-51.1); % Monocytes 5.1 % (1.7-9.3); Absolute Basophils 0.1 10^3/uL (0-0.2); Absolute Lymphocytes 1.7 10^3/uL (1.2-3.4); Absolute Monocytes 0.4 10^3/uL (0.1-0.6); Absolute Neutrophils 5.2 10^3/uL (1.4-6.5); Hematocrit 25.5 % (37.0-47.0); Hemoglobin 8.2 g/dL (12.0-16.0); Mean Corp Hgb Conc. 32.2 g/dL (33.0-37.0); Mean Corpuscular Volume 105.8 fL (81.0-99.0); Mean Platelet Volume 10.9 fL (7.4-10.4); Nucleated Red Blood Cells % 0 %; Platelet Count 328 10^3/uL (130-400); Red Blood Cell Count 2.41 10^6/uL (4.20-5.40); White Blood Cell Count 7.4 10^3/uL (4.8-10.8)
[2024-08-02 15:41] LABS: IgA 774 mg/dl (70-400)
[2024-08-02 15:53] LABS: Vitamin D, 25-OH*** < 12.8 ng/mL (30-80)
[2024-08-03 08:03] LABS: ALT (SGPT) 21 U/L (0-35); AST (SGOT) 40 U/L (14-36); Albumin 2.1 g/dl (3.5-5.0); Alkaline Phosphatase 118 U/L (38-126); Blood Urea Nitrogen 43 mg/dl (7-17); Carbon Dioxide 24 mmol/L (22-30); Chloride 103 mmol/L (98-107); Glucose 94 mg/dl (70-99); Potassium 4.2 mmol/L (3.5-5.1); Sodium 131 mmol/L (135-145); Total Bilirubin 0.4 mg/dl (0.2-1.3); Total Protein 5.9 g/dl (6.3-8.2); eGFR 50.48
[2024-08-03 12:15] LABS: tTG IgA Antibody 30.9 EU/ml (0-19); tTG IgG Antibody 44.2 EU/ml (0-19)
[2024-08-04 22:34] LABS: Endomysial IgA Antibody Titer <1:10 (<1:10)
== END ==
LOC: REG 12:44
PROVIDERS: ATTENDING PHYSICIAN Specialist; FAMILY PHYSICIAN Internal Medicine; OTHER PHYSICIAN Internal Medicine Hematology & Oncology; REFERRING PHYSICIAN Internal Medicine Cardiovascular Disease
DX: K90.0 Celiac disease (principal); D53.9 Nutritional anemia, unspecified; E88.09 Other disorders of plasma-protein metabolism, not elsewhere classified
CPT/HCPCS: 36415; 80053; 82306; 82784; 83516; 85025; 86231

== ENCOUNTER 2024-08-09 08:22 | Outpatient (RCR) | payer MEDICARE, OTHER, SELFPAY ==
[2024-08-09 08:45] VITALS: BP 126/56
[2024-08-09 09:22] VITALS: BP 126/56
[2024-08-09 09:41] VITALS: BP 114/47
[2024-08-09 11:30] VITALS: BP 114/53
== END 2024-09-03 23:59 | disposition home or self-care (01) ==
LOC: OID 08:22
PROVIDERS: ATTENDING PHYSICIAN Specialist
DX: D64.9 Anemia, unspecified (principal); K90.0 Celiac disease
CPT/HCPCS: 36415; 36430; 86850; 86900; 86901; 86902; 86920; 86922; P9016

== ENCOUNTER 2024-08-15 18:37 | Inpatient (IN) | payer MEDICARE, OTHER, SELFPAY ==
[2024-08-15] VITALS (9 sets, daily range): BP systolic 96–126; BP diastolic 47–90; PULSE 73–85; BMI 22.6
[2024-08-15 14:59] LABS: Hematocrit 31.4 % (37.0-47.0); Hemoglobin 10.6 g/dL (12.0-16.0); Mean Corp Hgb Conc. 33.8 g/dL (33.0-37.0); Mean Corpuscular Volume 103.0 fL (81.0-99.0); Nucleated Red Blood Cells % 0.3 %; Platelet Count 405 10^3/uL (130-400); Red Cell Dist. Width 20.8 % (11.5-14.5)
[2024-08-15 15:16] LABS: ALT (SGPT) 22 U/L (0-35); AST (SGOT) 38 U/L (14-36); Albumin 2.1 g/dl (3.5-5.0); Alkaline Phosphatase 89 U/L (38-126); Blood Urea Nitrogen 38 mg/dl (7-17); Calcium 7.9 mg/dl (8.4-10.2); Carbon Dioxide 23 mmol/L (22-30); Chloride 105 mmol/L (98-107); Estimated Creatinine Clearance 41 ml/min; Glucose 127 mg/dl (70-99); Potassium 3.8 mmol/L (3.5-5.1); Sodium 133 mmol/L (135-145); Total Protein 5.7 g/dl (6.3-8.2); eGFR 56.60
[2024-08-15 15:26] LABS: Troponin I 0.014 ng/ml
[2024-08-15] MEDS: MORPHINE SULFATE 4 MG IV (15:47)
[2024-08-15] MEDS: ZOFRAN 4 MG IV (15:47)
--- NOTE | 2024-08-15 15:54 | ED.GENMED ---
History of Present Illness
General
Chief Complaint: Fainting/Passed Out
Source: patient
Exam Limitations: none
Time Seen by Provider: 08/15/24 14:16
Nursing documentation reviewed up to this point in time: agreed with
History of Present Illness
History of Present Illness:
Note:
CHIEF COMPLAINT(S)
Shortness of breath and a potential fall in the bathroom.
HISTORY OF PRESENT ILLNESS
The patient is an 79-year-old female who presented after experiencing shortness of breath and a potential fall in the bathroom. She reported attending the hospital earlier in the day for a routine endoscopic procedure, after which she was advised to
consume Miralax. Post-procedure, she felt disoriented and unsure if she was standing or had fallen in the bathroom but suspected a fall. The patient described persistent shortness of breath upon exertion, stating that 'lately Lynn been short of
breath when Im active,' and expressed concern about her nutritional status, feeling she is not absorbing necessary nutrients from her food. She has not been using supplemental oxygen at home but believes she should be. She has a pacemaker, confirmed
to be Medtronic, and takes amiodarone for atrial fibrillation. No oxygen supplementation was provided at home. Reports left shoulder pain, suspected due to the fall.
MEDICATIONS
- Amiodarone
- Levothyroxine
- Spironolactone
- Furosemide, 20 mg
- Vitamin B, Vitamin C, Vitamin D3 (once weekly)
- Aspirin
- Benadryl, 2.5 mg for sleep if needed
- Potassium Chloride, 20 mEq
PHYSICAL EXAM
- Nursing notes reviewed and vital signs reviewed.
- Skin: Modeled skin in extremities.
- Cardiovascular: Pulses in feet palpable by Doppler without difficulty, dorsalis pedis palpable.
- Respiratory: Lung sounds clear.
- Cardiac: Pacemaker in left upper chest.
- Neurological: No deficits, moving all extremities, awake, alert, and oriented times three.
- Head: Normocephalic, atraumatic.
- Extremities: No edema.
- General: Elderly appearance.
PLAN
- Obtain CT scan of the head.
- Conduct X-rays of the chest and left shoulder.
- Blood tests to be performed.
- Evaluate pacemaker function.
- The patient is likely to stay in the hospital for further monitoring and management.
- Assess if additional intervention for the apparent fall or shortness of breath is necessary.
DIFFERENTIAL DIAGNOSIS
The Differential Diagnosis includes, in no particular order and is not limited to:
1. Heart failure exacerbation
2. Pulmonary embolism
3. Pneumonia
4. Chronic obstructive pulmonary disease exacerbation
5. Atrial fibrillation-related shortness of breath
6. Nutritional deficiencies
7. Orthostatic hypotension
8. Medication side effects
9. Anemia
10. Pacemaker malfunction
Past History
Past History
ED Past Medical History: Arrthythmia (atrial fib-no anticoags), CAD, CHF, HTN, Hypercholesterolemia, MA, Psychiatric (Depression) and Other (Back and neck pain, Migraines, Celiac disease, Anemia, Miscarrage X 3)
ED Past Surgical History: Cardiac (ablations, Cardioversion) and Other (Hernia repair bilateral, Left breast lumpectomy)
Social History
Tobacco: Former smoker
Alcohol: None
Personal:
Living: alone
Employment: Retired
Phy Exam
Physical Exam
Physical Exam:
.
Course
Orders/Labs/Results
Orders:
Orders
08/15/24 Breakfast
Cholesterol Lowering
At Your Request: Limited Participation
Does patient need a safe tray?: No
Fluid Restriction: 1800 mL/day (60 oz)
Cholesterol Lowering: Sodium, 2 Gram
Gluten Free
08/15/24 14:03
Electrocardiogram (*1) Urgent
Reason for Study: Syncope
08/15/24 14:04
EKG- Treatment ONCE
08/15/24 14:30
CT Head W/o Iv Contrast Urgent
Comment:
Reason For Exam: fall, syncope
CR Chest Single View Urgent
Reason For Exam: syncope
Shoulder, Left 2 View CR [CR Shoulder - Left Min 2 View*] Urgent
Comment:
Reason For Exam: fall, left shoulder pain
08/15/24 14:31
IV Insert/Care/Rem.- Treatment PRN
08/15/24 14:45
Complete Blood Count/With Diff Urgent
Comprehensive Metabolic Panel Urgent
NT-proBNP Urgent
Troponin I Urgent
08/15/24 14:51
Interrogate Pacemaker- Treatment ONCE
08/15/24 15:41
Morphine Sulfate 4 mg IV NOW STA
Ondansetron Injectable [Zofran] 4 mg IV NOW STA
08/15/24 15:55
Hip, Left 2-3 Views [CR Hip - LT w/wo Pel 2-3 Vw*] Urgent
Comment:
Reason For Exam: left hip pain, fall
Include a pelvis x-ray?: Yes
Knee, Left 4 or More Views [CR Knee - Left 4 Or More View*] Urgent
Comment:
Reason For Exam: left knee pain
08/15/24 16:21
Sling Left-Treatment ONCE
08/15/24 16:22
Furosemide [Lasix] 40 mg IV NOW STA
08/15/24 17:43
HYDROmorphone [Dilaudid] 0.5 mg IV NOW STA
08/15/24 18:20
Admit/Transfer Patient As Directed
Co-Sign Provider:
Level of Care: Inpatient admission
Assign to:: Telemetry
Physician / Group: ray lombardo
Diagnosis: syncope
Reason for Telemetry: Syncope
Date to Stop Telemetry: 08/17/24
Time to Stop Telemetry: 11:00
Reason for Hospitalization: syncope
Expected length of stay greater than two midnights?: Yes
ELOS- Estimated Length of Stay in days: 3
I certify the patient meets the requirements for IP care: Yes
PRN Pain Medication Management As Directed
May give lesser potent ordered pain med per pt: Yes
preference::
Protocol:: Medication orders for pain may be administered in a
manner that supports deferring to patient preference
when the pt is:
- Requesting an ordered lesser potent pain medication.
Least to most potent pain medications are defined
as: acetaminophen < NSAID < tramadol < opioids
(morphine, oxycodone, hydromorphone).
- Requesting a lesser dose of the same medication IF
ORDERED.
- Requesting a less intrusive route of administration
if both routes are prescribed by the provider (PO <
IV).
08/15/24 18:22
Code Status As Directed
Resuscitation Status: Full Code
08/15/24 20:02
Apixaban [Eliquis] 2.5 mg PO BID
08/15/24 20:02
HF DIETARY CONSULT Routine
HF EDUCATOR CONSULT Routine
Comment:
Activity As Directed
Activity Level: As Tolerated
Intake/ Output As Directed
Frequency: Per unit guidelines
Patient Education As Directed
Type: CHF folder
Comment: give on admission. Document in Interdisciplinary Education record
Sleep Apnea Assessment by RN As Directed
Comment:
Physician Instructions:
Vital Signs As Directed
Frequency: Other
Additional Instructions:: Q12 or per unit guidelines if more frequent.
Weight As Directed
Frequency: Daily
Type of Scale: Standing Scale
Comment: Daily morning weight. If unable to stand, use balanced bed scale.
Weight As Directed
Frequency: Once
Type of Scale: Standing Scale
Comment: Upon Admission. If unable to stand, use balanced bed scale.
Pulse Ox/cont/shift [RESP] Routine
Quantity: 1
Special Instructions: Daily pulse oximetry at rest. If greater than 92% at rest also obtain pulse oximetry
while ambulating as tolerated.
Ot Eval And Treat Routine
Pt Eval And Treat Routine
Activity Level: As Tolerated
08/15/24 20:16
Diphenhydramine [Benadryl Elixir] 12.5 mg PO HSPRN PRN
08/15/24 22:00
Aspirin Low Dose EC [Aspir Low (Enteric Coated)] 81 mg PO HS
08/16/24 05:43
Basic Metabolic Panel IN AM
Complete Blood Count/No Diff IN AM
Magnesium IN AM
TSH Reflex To Free T4 IN AM
08/16/24 06:00
Levothyroxine [Synthroid] 150 mcg PO DAILY @ 0600
08/16/24 08:00
Amiodarone [Pacerone] 100 mg PO DAILY
Ascorbic Acid [Vitamin C] 1,000 mg PO DAILY
Ezetimibe [Zetia] 10 mg PO DAILY
Metoprolol Xl [Toprol Xl] 25 mg PO DAILY
Potassium Chloride [KCl] 20 meq PO DAILY
08/17/24 08:00
Atorvastatin [Lipitor] 10 mg PO MoWeFr@0800
Spironolactone [Aldactone] 12.5 mg PO MoWeFr@0800
08/17/24 11:00
DC Protocol for Telemetry ONCE
Abnormal Lab Results
08/15/24
14:45
RBC 3.05 L 10^6/uL
(4.20-5.40)
Hgb 10.6 L g/dL
(12.0-16.0)
Hct 31.4 L %
(37.0-47.0)
MCV 103.0 H fL
(81.0-99.0)
MCH 34.8 H pg
(27.0-31.0)
RDW 20.8 H %
(11.5-14.5)
Plt Count 405 H 10^3/uL
(130-400)
Abs Immat Gran (auto) 0.1 H 10^3/uL
(0-0.05)
Absolute Neuts (auto) 8.4 H 10^3/uL
(1.4-6.5)
Absolute Lymphs (auto) 0.9 L 10^3/uL
(1.2-3.4)
Immature Gran % 1.1 H %
(0-0.5)
Neutrophils % 85.9 H %
(42.2-75.2)
Lymphocytes % 9.0 L %
(20.5-51.1)
Sodium 133 L mmol/L
(135-145)
BUN 38 H mg/dl
(7-17)
Glucose 127 H mg/dl
(70-99)
Calcium 7.9 L mg/dl
(8.4-10.2)
AST 38 H U/L
(14-36)
Total Protein 5.7 L g/dl
(6.3-8.2)
Albumin 2.1 L g/dl
(3.5-5.0)
08/15/24 14:45
08/15/24 14:45
Vital Signs
Initial and Last Documented VS:
Initial Vital Signs
Pulse Resp BP Pulse Ox
67 16 103/64 98
08/15/24 14:04 08/15/24 14:04 08/15/24 14:04 08/15/24 14:04
Last Documented Vital Signs
Temp Pulse Resp BP Pulse Ox
97.9 F 62 18 143/66 94
08/19/24 11:35 08/19/24 11:35 08/19/24 11:35 08/19/24 11:35 08/19/24 12:11
*Radiology
Radiology exam reviewed: radiology read reviewed (Left knee x-ray left hip x-ray no acute findings, left shoulder x-ray shows clavicle fracture, 3-[address] head no acute findings)
*Pulse Oximetry
Patient hypoxic: no (98% room air)
Comment: 98
*EKG
Interpreted by ED Provider?: Yes
EKG Intrepretation Date: 08/15/24
EKG Intrepretation Time: 14:16
Interpretation: abnormal
Comparison EKG: changes noted
Heart Rate: 68
Rate: normal
Rhythm: other (atrial paced)
Graff: normal axis
Interval: normal interval
QRS Pattern: normal QRS
Ischemia: no ischemia
*Web Production Artist Interpretation
Rate: normal
Interpretation: abnormal
Heart Rate: 66
Rhythm: other (atrial paced)
*Critical Care Note
Total Time (30-74mins, 75-104mins- exclusive of procedures): Not Applicable
ED Attending Note
-
Portions of this chart may have been created with voice recognition software.� Occasional wrong word or��sound alike� substitutions may have occurred due to the inherent limitations of voice recognition software.
Discharge Plan
Departure
Patient Disposition: Admit
Date of Disposition: 08/15/24
Time of Disposition: 17:43
Admit to doctor: Marisa
Presentation/result/management discussed w/ accepting MD/DO: Hospitalist
Patient with high blood pressure during this ER visit?: Yes
Condition: Fair
Discharge Problem:
CHF (congestive heart failure), Syncope, Fracture of clavicle, Fracture of left fifth rib, Fracture of left fourth rib, Fracture of left third rib
Interventions
Interventions:
*Risk Screen - Suicide Last Done: 08/15/24 14:04
*General Assessment Last Done: 08/15/24 14:04
*Neglect/Abuse Screening Last Done: 08/15/24 14:04
*ED- Fall Risk Assessment Last Done: 08/15/24 19:53
*ED COVID-19 Vaccine History Last Done: 08/15/24 21:15
*Nursing Disposition Last Done: 08/15/24 19:53
ED- Cardiac Assessment Last Done: 08/15/24 14:56
ED- Neurological Assessment Last Done: 08/15/24 14:04
Discharge Date and Time
Discharge Date/Time: 08/15/24 19:54
--- NOTE | 2024-08-15 16:15 | EDRN ---
Prior to going to imaging, this RN informed ED attending that pt. had attempted to stand and transfer to bedside commode, but is unable to bear weight on lt. leg, now c/o pain from her hip down to her lt. knee as well as severe pain to her left
shoulder. Dr. Lunaroad aware, reports he added on additional images to be completed.
--- NOTE | 2024-08-15 17:19 | EDRN ---
RN attempted to medicate pt. w/ ordered IV Lasix, pt. currently refusing as she states, 'no I already took a diuretic and I am still having diarrhea, I don't think I should take that'.. Dr. Shepherd notified.
[2024-08-15] MEDS: LASIX 40 MG IV (17:30)
--- NOTE | 2024-08-15 17:54 | HPS.HSE ---
Family Physician
-
Family Physician: Kodak Rubio
Chief Complaint
-
sob
History of Present Illness
79-year-old female with past medical history for Pleural effusion, CHF, hypertension, A-fib cardiomyopathy, pacemaker celiac disease, hyperlipidemia pulmonary hypertension aortic valve insufficiency who presented after syncopal episode in the
bathroom. She was getting prepped for capsule study today. She has not eaten anything since yesterday afternoon. Today morning she passed out and fell to the floor. She does not remember if she hit the head on the floor. At present denied any
headache. Patient stated chronic short of breath and recent weight gain for which her diuretics was increased 10 days ago as well as last week. Patient denied any chest pain. Patient denied any fever, chills, cough, congestion. Patient denied
any abdominal pain, nausea, vomiting or diarrhea. Patient denied dysuria hematuria. She has chronic lower extremities edema.
Head CT with no acute findings. Patient is getting admitted for further management.
Medical History
Past Medical History
Past Medical History: Reports Other
Additional Past Medical History:
Aortic valve sclerosis
Mitral regurgitation
Pleural effusion
CHF
Hypertension
A-fib
Osteopenia
Cataracts
Pacemaker
Coronary artery disease
Celiac disease
Lung nodule
Hyperlipidemia
Colitis
Pulmonary hypertension
Past Surgical History: Reports Other
Additional Past Surgical History:
Cardioversion
Left inner foot vein removal
Cataract surgery
Pacemaker placement
Thoracentesis
Social History
Tobacco: Former Smoker
Alcohol: Occasional
Drug: None
Living: With Family
Family History
Family History: Not pertinent
Allergies / Home Medications
Allergies reflects when Allergies were last updated in [email or web address].
Home Medications with original date entered in [email or web address]
Allergy/Medication List:
Allergies
Allergy/AdvReac Type Severity Reaction Status Date / Time
Antihistamines Allergy Rash Verified 08/09/24 09:21
Cephalosporins Allergy Rash Verified 08/09/24 09:21
hydrochlorothiazide Allergy Rash Verified 08/09/24 09:21
penicillin G Allergy Rash Verified 08/09/24 09:21
penicillin V Allergy Rash Verified 08/09/24 09:21
Penicillins Allergy Rash Verified 08/09/24 09:21
Home Medications
aspirin 81 mg tablet,delayed release 81 mg PO HS blood thinner 05/17/23
apixaban 2.5 mg tablet (Eliquis) 2.5 mg PO BID afib 07/19/23
ezetimibe 10 mg tablet (Zetia) 10 mg PO DAILY cholesterol 07/19/23
potassium chloride 20 mEq tablet,extended release(part/cryst) 20 meq PO DAILY Supplement 07/19/23
amiodarone 200 mg tablet 100 mg PO DAILY Arrhythmia 05/10/24
cholecalciferol (vitamin D3) 50 mcg (2,000 unit) tablet (Vitamin D3) 50 mcg PO DAILY Supplement 05/10/24
levothyroxine 50 mcg tablet 150 mcg PO DAILY Thyroid 05/10/24
metoprolol succinate 25 mg tablet,extended release 24 hr 25 mg PO DAILY Blood Pressure 05/10/24
multivitamin-ferrous fumarate-folic acid 18 mg-400 mcg tablet (Centrum) 1 tab PO DAILY Supplement 05/10/24
sour monroe extract 1,000 mg capsule (Tart Monroe Extract) 800 mg PO DAILY Supplement 05/10/24
spironolactone 25 mg tablet 12.5 mg PO MOWEFR Fluid retention/Swelling 05/10/24
torsemide 20 mg tablet 20 mg PO DAILY Fluid Retention/Swelling 05/10/24
vitamin B complex 1 tab PO DAILY Supplement 05/10/24
calcium carbonate (Calcium 600) 600 mg PO DAILY Supplement ##0 05/22/24
ascorbic acid (vitamin C) 1,000 mg tablet (Vitamin C) 1,000 mg PO DAILY 08/15/24
diphenhydramine HCl 25 mg chewable tablet (Allergy Relief (diphenhydramine)) 12.5 mg PO HSPRN PRN sleep 08/15/24
pitavastatin calcium 1 mg tablet (Livalo) 1 mg PO MOWEFR 08/15/24
Review of Systems
-
Constitutional: Reports No Symptoms
EENT: Reports No Symptoms
Respiratory: Reports Trouble Breathing
Cardiac: Reports No Symptoms
Abdomen/GI: Reports No Symptoms
: Reports No Symptoms
Musculoskeletal: Reports Edema
Skin: Reports No Symptoms
Neurological: Reports No Symptoms
Endocrine: Reports No Symptoms
Hematologic/Lymphatic: Reports No Symptoms
Psych: Reports No Symptoms
Physical Exam
Vital Signs
Vital Signs
Temp Pulse Resp BP Pulse Ox
97.7 F 66 21 113/57 98
08/15/24 14:34 08/15/24 17:30 08/15/24 17:30 08/15/24 17:13 08/15/24 14:04
Physical Exam
General: Well Developed, Well Nourished and No Apparent Distress
HEENT: NormoCephalic, Moist mucous membranes and Atraumatic
Respiratory: Clear
Cardiac: S1/S2 and Regular Rhythm; No Murmur or Rub
GI: Soft, Non Tender, Non Distended and Normal Bowel Sounds; No Organomegaly
Rectal: Deferred by Provider
Musculoskeletal: No Clubbing, No Cyanosis and Other (Bilateral lower extremities edema)
Skin: No Rash
Neuro: AO x 3 and Nonfocal/grossly intact
Psych: Calm
Laboratory Results
-
08/15/24 14:45
08/15/24 14:45
Laboratory Results
Total Bilirubin 0.3 mg/dl (0.2-1.3) 08/15/24 14:45
AST 38 U/L (14-36) H 08/15/24 14:45
ALT 22 U/L (0-35) 08/15/24 14:45
Alkaline Phosphatase 89 U/L (38-126) 08/15/24 14:45
Troponin I 0.014 ng/ml 08/15/24 14:45
Data Reviewed
-
Diagnostic Radiology: Report Reviewed by me
Lab Data: Labs Reviewed by me
Impression/Plan
-
# Syncope likely vasovagal
#clavicle fracture-sling in place
- CT head negative
- Knee, hip, shoulder, chest x-ray pending
- Obtain orthostatics
-orthopedic consulted
# Anemia of chronic disease
- Hemoglobin stable at 10.6
-No active bleeding
- Continue to monitor
# Possible CHF exacerbation
- received a dose of Lasix in ER,initiated on Torsemide
- Spironolactone continued
- Strict MARLENA, daily weight, fluid restriction
-cardiology consulted
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
#History of Takotsubo CM w/recovered EF (2005)
# Paroxysmal atrial fibrillation
# Prior PVI (2016)
# s/p PFA 08/24/23
-continue DOOR TO DOOR SALESPERSON eliquis 2.5 bid
-continue DOOR TO DOOR SALESPERSON metoprolol
-continue DOOR TO DOOR SALESPERSON amio
# Hypothyroidism
- Synthroid continued
# Chronic pleural effusions suspected multifactorial from partial hypoalbuminemia and deconditioning and malnourished
# Right pleural effusion status post thoracentesis on 05/23/2024 with symptomatic improvement in 1350 cc of fluid removed
# History of recurrent left-sided pleural effusion status post admission to [place] with VATS and pulmonary decortication 01/2024.
#Lung Nodule
# Chronic Hyponatremia
-Monitor
-Continue diuresis and PO fluid restriction
# Celiac disease
gluten free diet
#Moderate portal hypertensive gastropathy
DVT PPX on eliquis
Code status - full code
[2024-08-15] MEDS: DILAUDID 0.5 MG IV ×2 (18:31→21:43)
--- NOTE | 2024-08-15 18:46 | EDRN ---
Pt.'s hands and feet w/ poor perfusion, unable to obtain pulse ox. reading since arrival to ED in toes/hands. Prior RN had pulse ox. on rt. ear, w/ RA sat. of 98%. Pulse ox. reading unable to be obtained, despite multiple attempts at placement. Pt.
denies shortness of breath, does state she is cold and thermastat in her room does not work so room is cold. Admitting made aware, will order ABG if concerned about o2 saturation. Pt. is speaking in full sentences, in no respiratory distress.
--- NOTE | 2024-08-15 19:01 | EDRN ---
Dr. Vargas at bedside, made aware of inability to obtain pulse ox. Per Dr. Vargas, no need for ABG, agrees pt. does not seem to be in distress and that this is most likely a perfusion issue/room temperature issue. Pt. has ready bed on 4th floor, per
Alicia, this RN can send pt. to floor.
--- NOTE | 2024-08-15 19:06 | W.PN.UPDATE ---
Update Note
Progress Note Update
This note serves as an addendum to the H&P by dredge hand GOGO Catrachita MEHTA
HPI
6F HX Chr diastolic CHF, recent EF of around 50 to 60% while at [place] in February, HX AF , s/p ablation, cardioversion, sick sinus syndrome status post pacemaker placement, on Eliquis, and amiodarone,HX chronic edema secondary to CHF as well as
hypoalbuminemia, celiac disease, hypothyroid diagnosed prior to initiation of amiodarone, chronic anemia seen at ER:
- pw syncopal episode in the bathroom while she was prepping for capsule study today
- not eaten anything since yesterday afternoon
- passed out and fell to the floor
- not remember if she hit the head on the floor.
- no GAY
- chronic short of breath
- Recent weight gain for which her diuretics was increased 10 days ago as well as last week.
Reviewed VS:
Vital Signs
Temp Pulse Resp BP Pulse Ox
97.7 F 66 12 108/55 98
08/15/24 14:34 08/15/24 19:00 08/15/24 19:00 08/15/24 19:00 08/15/24 14:04
PE
Gen: No Apparent Distress, thin
HEENT:symmetric
Neck: supple
Lungs: clear
Cor: RRR
Abdomen: benign exam
STRIPPING CUTTER AND WINDER:AAO3
MS: Bilateral lower extremities edema, dusky colored periphery
Psych: Nl mood and affect
Data
Abnormal Lab Results
08/15/24
14:45
RBC 3.05 L
Hgb 10.6 L
Hct 31.4 L
MCV 103.0 H
MCH 34.8 H
RDW 20.8 H
Plt Count 405 H
Abs Immat Gran (auto) 0.1 H
Absolute Neuts (auto) 8.4 H
Absolute Lymphs (auto) 0.9 L
Immature Gran % 1.1 H
Neutrophils % 85.9 H
Lymphocytes % 9.0 L
Sodium 133 L
BUN 38 H
Glucose 127 H
Calcium 7.9 L
AST 38 H
Total Protein 5.7 L
Albumin 2.1 L
11/25/23 TTE
1. Normal left ventricular size with mild LVH, no regional wall motion abnormality,
EF 55-60% but with global longitudinal strain of -14.2%.
Stage III diastolic dysfunction.
2. Thickened mitral leaflets, mitral annular calcification, mild mitral regurgitation and dilated left atrium
3. Aortic sclerosis without stenosis or significant aortic regurgitation
4. Normal right ventricle, pacing wire seen, dilated right atrium, moderate tricuspid regurgitation and pulmonary artery systolic pressure 45-50 mmHg
Study is similar to May 2023. Right atrial pressure was 36 mmHg at that
time.
ASSESSMENT & PLAN
Syncope suspect vasovagal
Underlying dehydration , volume contraction and hypotension
- NEG HCT
- Pending Knee, hip, shoulder, CXR
- Obtain orthostatic VSS
HX chr HFpEF and Stage III diastolic dysfunction
HX Takotsubo CM w/recovered EF (2005)
- s/p IV Lasix 40 at ER
- No further IV Lasix
- c/w AUTOMATIC MACHINES SUPERVISOR PO Torsemide
- on Spironolactone continued
Anemia of chronic disease
- Hemoglobin stable at 10.6
- No active bleeding
- Continue to monitor
S/P Medtronic DC PPM 10/19/2023
Paroxysmal atrial fibrillation
Prior PVI (2016)
s/p PFA 08/24/23
- c/w AUTOMATIC MACHINES SUPERVISOR eliquis 2.5 bid
- c/w AUTOMATIC MACHINES SUPERVISOR metoprolol
- c/w AUTOMATIC MACHINES SUPERVISOR amiodarone
Hypothyroidism
- Synthroid continued
Chronic pleural effusions suspected multifactorial from partial hypoalbuminemia and deconditioning and malnourished
Right pleural effusion status post thoracentesis on 05/23/2024 with symptomatic improvement in 1350 cc of fluid removed
HX recurrent left-sided pleural effusion status post admission to [place] with VATS and pulmonary decortication 01/2024.
Lung Nodule
HX Celiac disease
- gluten free diet
Moderate portal hypertensive gastropathy
DVT Px: Eliquis
Code: Full
IP TLM
--- NOTE | 2024-08-15 19:10 | EDRN ---
This RN attempted to call floor RN to inform about issues obtaining pulse ox. However, floor RN did not accept phone call as is in report. Floor RN to call ED when done w. report.
--- NOTE | 2024-08-15 19:53 | EDRN ---
Floor RN is aware of difficulty obtaining pulse ox.
--- NOTE | 2024-08-15 20:30 | PTCARENOTE ---
Patient arrived from the ED via stretcher. AAOx3, VSS. Pulse ox 91% on RA. Patient pulled over onto the bed. Left arm stabilized in a sling. Patient c/o left sided pain. Unable to ambulate. Patient agreeable to try bed savage. Oriented to the room.
Call carreon is within reach.
[2024-08-15] MEDS: ELIQUIS 2.5 MG PO (21:10)
[2024-08-15] MEDS: ASPIR LOW (ENTERIC COATED) 81 MG PO (21:10)
[2024-08-16] VITALS (9 sets, daily range): BP systolic 90–115; BP diastolic 43–54; PULSE 78–86; O2SAT 91; BMI 22.6
[2024-08-16] MEDS: DILAUDID 0.5 MG IV ×2 (01:51→22:01)
[2024-08-16] MEDS: SYNTHROID 150 MCG PO (05:34)
--- NOTE | 2024-08-16 06:56 | W.PN.UPDATE ---
Addendum entered and electronically signed by Camilo Hoskins MD 08/16/24 07:47:
Patient seen and examined. Agree with below. Displaced distal left clavicle fracture. Plan for nonoperative management. Sling for comfort. NWB LLE. May remove sling when sedentary to work on ROM of elbow.
Original Note:
Update Note
Progress Note Update
Full orthopedic consult to be dictated:
Patient sustained displaced fracture lateral aspect of left clavicle. No surgical intervention at the moment. Nonweightbearing left upper extremity, ice/Tylenol as needed, sling and she should maintain shoulders back (attention position like a
soldier) as to maintain better alignment of clavicle until it heals. Exam neck/remainder back, left hip and left knee benign. Radiographs no obvious fractures. No pain with logroll or range of motion testing bilateral hips. Weight-bear as
tolerated lower extremities. Follow-up with orthopedics 2 weeks for x-ray. Orthopedics to sign off.
[2024-08-16 07:11] LABS: Blood Urea Nitrogen 40 mg/dl (7-17); Calcium 8.0 mg/dl (8.4-10.2); Carbon Dioxide 24 mmol/L (22-30); Chloride 105 mmol/L (98-107); Estimated Creatinine Clearance 30 ml/min; Glucose 103 mg/dl (70-99); Magnesium 1.8 mg/dl (1.6-2.3); Potassium 4.1 mmol/L (3.5-5.1); Sodium 131 mmol/L (135-145); eGFR 37.80
[2024-08-16 07:26] LABS: Hematocrit 29.9 % (37.0-47.0); Hemoglobin 10.2 g/dL (12.0-16.0); Mean Corp Hgb Conc. 34.1 g/dL (33.0-37.0); Mean Corpuscular Volume 102.4 fL (81.0-99.0); Platelet Count 340 10^3/uL (130-400); Red Cell Dist. Width 20.4 % (11.5-14.5)
[2024-08-16] MEDS: ELIQUIS 2.5 MG PO (08:05)
[2024-08-16] MEDS: PACERONE 100 MG PO (08:05)
[2024-08-16] MEDS: TOPROL XL 25 MG PO (08:05)
[2024-08-16] MEDS: VITAMIN C 1000 MG PO (08:06)
[2024-08-16] MEDS: DEMADEX 20 MG PO (08:06)
[2024-08-16] MEDS: KCL 20 MEQ PO (08:06)
[2024-08-16] MEDS: TYLENOL 650 MG PO (08:06)
[2024-08-16] MEDS: ZETIA 10 MG PO (08:06)
--- NOTE | 2024-08-16 08:10 | W.PN.HOSP.TC ---
Today's Communication/Plan
-
IR alyssa requested Thoracentesis Paracentesis
diuresis rate rhythm control as per Cardio
conservative mgmt Lt clavicle fx as per orthopedic
PT/OT
Assessment / Plan
Assessment / Plan
Physical Exam
General: No acute distress, appears comfortable
HEENT: NormoCephalic, Moist mucous membranes and Atraumatic
Respiratory: Clear
Cardiac: S1/S2 and Regular Rhythm; No Murmur or Rub
GI: Soft, Non Tender, abd distended and Normal Bowel Sounds
Musculoskeletal: No Clubbing, No Cyanosis, Left arm in sling, Bilateral lower extremities edema +1
Skin: No Rash
Neuro: AO x 3 and Nonfocal/grossly intact
Psych: Calm
79F hx pleural effusion HFpEF HTN afib ppm Celiac dz HLD pulm htn here for evaluation syncope with associate clavicle and rib fractures likely d/t fall. Syncope had occurred while taking bowel prep for capsule endoscopy. Patient endorsed feeling
lightheaded/dehydrated prior to event.
# Syncope likely vasovagal
#Left clavicle fracture-sling in place
#Lt 3rd thru 5th rib fractures
- CT head negative
- Knee, hip, shoulder, chest x-ray results appreciated
- Monitor Orthostatics
-orthopedic consult appreciated conservative mgmt clavicle fx with left arm sling recommended
# Anemia of chronic disease
- Hemoglobin stable in 10 range
-No active bleeding
- Continue to monitor
- ingested capsule endoscopy prior to coming to hospital, endorsed family will bring in kit for capsule retrieval
# Possible CHF exacerbation
- received a dose of Lasix in ER
- Spironolactone continued
- Strict MARLENA, daily weight, fluid restriction
-cardiology consult appreciated pacemaker interrogated noted normal function but increased afib burden, Amiodarone increased to BID, no additional Lasix recommended, cont Torsemide
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
#History of Takotsubo CM w/recovered EF (2005)
# Paroxysmal atrial fibrillation
# Prior PVI (2017)
# s/p PFA 08/24/23
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
-continue MAINTENANCE WORKER metoprolol
-continue Amio as above
# Hypothyroidism
- Synthroid continued
-TFT appears to suggest Hypothyroidism uncontrolled, TSH elevated
-pt endorses compliance with synthroid and no recent changes in dose
-repeating TFT to confirm prior to increasing dose.
# Chronic pleural effusions suspected multifactorial from partial hypoalbuminemia and deconditioning and malnourished
# Right pleural effusion status post thoracentesis on 05/23/2024 with symptomatic improvement in 1350 cc of fluid removed
# History of recurrent left-sided pleural effusion status post admission to [facility] with VATS and pulmonary decortication 01/2024.
#08/16/24 Abd US notes Large Right Pleural Effusion and small to moderate ascites
Blood pressure also borderline low hypotensive, once albumin bolus given
IR eval requested for Thoracentesis and Paracentesis
#Lung Nodule
# Chronic Hyponatremia
-Monitor
-Continue diuresis and PO fluid restriction
# Celiac disease
gluten free diet
#Moderate portal hypertensive gastropathy
PT/OT appreciated SNF rehab
DVT PPX on eliquis
Code status - full code
I spent a total of 45 minutes with the patient or on the floor. More than 50% of this time involved counseling and coordination of care.
Anticipated Discharge: 24 - 48 hours
Subjective/Interval History
-
Date of Service: August 16, 2024
Seen and examined at bedside in no acute distress sitting up comfortably in chair. Endorses generalized weakness, malaise, exertional dyspnea. Also reports abd distension and back pain. Left arm in sling during evaluation d/t clavicle fracture
Objective Data
-
Labs:
Laboratory Results
08/16/24
05:43
WBC 5.8
Hgb 10.2 L
Hct 29.9 L
Plt Count 340
Sodium 131 L
Potassium 4.1
Chloride 105
Carbon Dioxide 24
BUN 40 H
Creatinine 1.4 H
Glucose 103 H
Calcium 8.0 L
Vital Signs:
Vital Signs
Temp Pulse Resp BP Pulse Ox
97.8 F 86 18 106/45 90
08/16/24 07:30 08/16/24 08:05 08/16/24 07:30 08/16/24 08:05 08/16/24 03:23
I&O
08/15/24 08/16/24 08/17/24
06:59 06:59 06:59
Intake Total 480 / 480
Balance 480 / 480
--- NOTE | 2024-08-16 08:50 | CON.CAR ---
Addendum entered and electronically signed by Jose Alberto Tran MD 08/16/24 15:10:
Extremely pleasant and very complex 79-year-old womanAdmitted now after a syncopal episode with a clavicular fracture. We are asked to review regarding HFpEF and edema related to hypoalbuminemia with bilateral pleural effusions and prior history of
VATS.
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
in 2023, now on amiodarone, remote Takotsubo cardiomyopathy, hypertension, hyperlipidemia, and anemia
PSH: In addition to above, herniorrhaphy, lumpectomy cataracts
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
Current meds: Amiodarone 100 mg a day, apixaban 2.5 mg twice daily, vitamin C, aspirin 81 mg a day, ezetimibe 10 mg a day, levothyroxine, metoprolol ER 25 mg a day, atorvastatin 3 days a week, potassium 20 meqdaily, spironolactone 12.53 days a week,
torsemide 20 mg a day, lidocaine patch, received Lasix IV x 1
Rest of history per Radhika Salmeron
102/50, pulse 69, respirations 18, afebrile, weight is 63.6 kg, if accurate down 5 kg since admission, weight at discharge in May was 59.6 kg frail, diminished breath sounds in bases right greater than left,JVD not markedly elevated, soft systolic
murmur at base and apex, 1+ edema
Ultrasound of abdomen moderate to large right pleural effusion, small left pleural effusion
Hemoglobin is 10.2, BUN/creatinine are 40 and 1.4, creatinine had been 1.0, sodium is 131, troponin is 0.014, proBNP is 2340, had been 1650, albumin is 2.1, TSH is 48.5
EKG shows atrial pacing with prolonged AV conduction, low voltage nonspecific T waves
Chest x-ray shows bilateral effusions, right greater than left
Impression:
See below as per Radhika Salmeron. Reviewed in detail, and agree unless specifically noted otherwise.
Plan:
She presents with syncope likely related to orthostasis in the setting of a bowel prep for capsule endoscopy. She has a clavicular fracture on the left with 2 broken ribs. Pacemaker function is adequate and arrhythmia as a cause of syncope
effectively ruled out by pacer histograms. Although her atrial fibrillation burden has increased to 50% when in atrial fibrillation her ventricular response ranges from 70-110, making A-fib unlikely to be the cause of syncope. We will increase
amiodarone.
She remains very complex with HFpEF and anasarca likely related to hypoalbuminemia, has been under investigation for protein-losing enteropathy. Also has portal gastropathy, unclear whether synthetic capacity of liver is contributing to
hypoalbuminemia.
She has received IV furosemide. As an outpatient she is on torsemide, which had been increased from 20 mg once daily to twice daily and is now back to once daily. I would continue this. Would not give additional IV furosemide here in the hospital.
She has history of UTIs making SGLT2 inhibitors problematic.
We will continue to follow.
Original Note:
Consultation
Consultation Request
Date/Time Consultation Requested: 08/15/2024 at 1906
Date/Time Consultation Performed: 08/16/2024 at 0851
Requesting Provider: Dr. Pabon
Performing Provider: Dr. FELIPA Tran
Reason for Consultation: Syncope and CHF
Medical History
-
History of Present Illness:
Patient came to [facility] ER yesterday after fall and is now being mated with syncope, clavicle fracture and possible HFpEF with consultation to cardiology. Patient was seen in the office on 07/17/2024 and her proBNP was felt to be acceptable although
her weight was up to 136 lbs with her previous weight being 133 lbs, there were also moderate bilateral pleural effusions. Usual dose of torsemide 20 mg daily was continued and the patient was agreeable to referral for palliative care assessment.
eCW tasks was reviewed by me and patient was given 1 unit PRBCs on 08/02/2024 for Hgb of 7.7 and the Hgb only improved up to 8.2 so a second unit was given on 08/06/24. Remote device check 08/08/2024 had a 7-hour long atrial flutter episode and patient
was already on Eliquis, no other changes, but later that day patient called with weight gain and was told to take additional torsemide 20 mg for a total of 40 mg daily on 08/08/2024 and 08/09/2024 and although she lost 4 lbs she had ongoing GILLIAM and
fatigue. Then patient was preparing for a scheduled capsule endoscopy for her celiac disease by taking Miralax and after swallowing the capsule she felt disoriented, lost her sense of balance and had a fall. Patient was brought to [facility] ER and
admitted for syncope, clavicle fracture and possible acute on chronic HFpEF. Patient was given Lasix 40 mg IV x 1 in the ER. Her Cre on arrival was 1.0 and today is up to 1.4.
H:
Chronic HFpEF
Recurrent pleural effusion
s/p Left Asept pleural catheter placement 11/29/23, removed after admission to [facility] with VATS and pulmonary decortication 01/2024
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
Hyponatremia
Paroxysmal atrial fibrillation
Prior PVI (2016)
s/p PFA 08/24/23
Tikosyn stopped during [facility] rehab stay 02/2024 and now on chronic amiodarone
Chronic anticoagulation on Eliquis
Takotsubo CM w/recovered EF (2005)
Negative workup for cardiac amyloid
HLD
HTN
MR
Renal nephrosis
Lung Nodule (2021, stable)
Anemia
celiac dz
Past Medical History
Past Medical History: Other (See HPI)
Past Surgical History: Cardiac (PVI ablation 2016, pulsed field ablation 08/24/2023) and Other (Bilateral hernia repair, left breast lumpectomy, cataract extraction)
Social History
Tobacco: Former Smoker
Alcohol: None
Drug: None
Living: With Family
Family History
Family History: CAD and Hypertension
Allergies / Home Medications
Allergy/AdvReac Type Severity Reaction Status Date / Time
Antihistamines Allergy Rash Verified 08/09/24 09:21
Cephalosporins Allergy Rash Verified 08/09/24 09:21
gluten Allergy Intestinal Verified 08/15/24 21:13
Issues
hydrochlorothiazide Allergy Rash Verified 08/09/24 09:21
penicillin G Allergy Rash Verified 08/09/24 09:21
penicillin V Allergy Rash Verified 08/09/24 09:21
Penicillins Allergy Rash Verified 08/09/24 09:21
�Medication �Instructions �Recorded �Confirmed �Type
aspirin 81 mg tablet,delayed 81 mg PO HS blood thinner 05/17/23 08/15/24 History
release
apixaban 2.5 mg tablet (Eliquis) 2.5 mg PO BID afib 07/19/23 08/15/24 History
ezetimibe 10 mg tablet (Zetia) 10 mg PO DAILY cholesterol 07/19/23 08/15/24 History
potassium chloride 20 mEq 20 meq PO DAILY Supplement 07/19/23 08/15/24 History
tablet,extended release(part/cryst)
amiodarone 200 mg tablet 100 mg PO DAILY Arrhythmia 05/10/24 08/15/24 History
cholecalciferol (vitamin D3) 50 50 mcg PO DAILY Supplement 05/10/24 08/15/24 History
mcg (2,000 unit) tablet (Vitamin
D3)
levothyroxine 50 mcg tablet 150 mcg PO DAILY Thyroid 05/10/24 08/15/24 History
metoprolol succinate 25 mg 25 mg PO DAILY Blood Pressure 05/10/24 08/15/24 History
tablet,extended release 24 hr
multivitamin-ferrous 1 tab PO DAILY Supplement 05/10/24 08/15/24 History
fumarate-folic acid 18 mg-400 mcg
tablet (Centrum)
sour monroe extract 1,000 mg 800 mg PO DAILY Supplement 05/10/24 08/15/24 History
capsule (Tart Monroe Extract)
spironolactone 25 mg tablet 12.5 mg PO MOWEFR Fluid 05/10/24 08/15/24 History
retention/Swelling
torsemide 20 mg tablet 20 mg PO DAILY Fluid 05/10/24 08/15/24 History
Retention/Swelling
vitamin B complex 1 tab PO DAILY Supplement 05/10/24 08/15/24 History
calcium carbonate (Calcium 600) 600 mg PO DAILY Supplement ##0 05/22/24 08/15/24 History
ascorbic acid (vitamin C) 1,000 mg 1,000 mg PO DAILY 08/15/24 08/15/24 History
tablet (Vitamin C)
diphenhydramine HCl 25 mg chewable 12.5 mg PO HSPRN PRN sleep 08/15/24 08/15/24 History
tablet (Allergy Relief
(diphenhydramine))
pitavastatin calcium 1 mg tablet 1 mg PO MOWEFR 08/15/24 08/15/24 History
(Livalo)
Review of Systems
-
History Source: Patient
All other systems: Negative unless noted
Physical Exam
Vital Signs
Temp Pulse Resp BP Pulse Ox
97.8 F 86 18 106/45 90
08/16/24 07:30 08/16/24 08:05 08/16/24 07:30 08/16/24 08:05 08/16/24 03:23
GEN: NAD. AAO x3
HEENT: EOMI, MMM
LUNGS: RA. Decreased BS right worse than left base. No audible wheeze
CV: SR on tele. Reg, S1/S2, 2/6 BSM
ABD: Mildly distended. Soft, BS+, NT
EXT: +1 B/L LE edema. No cyanosis or clubbing.
NEURO: Gross non-focal
SKIN: Warm, pink and dry. No rash
Lab Results
08/16/24 05:43
08/16/24 05:43
Troponin I 0.014 ng/ml 08/15/24 14:45
Vfp-L-Xtvkxrwejny Pept 2340 pg/ml 08/15/24 14:45
Impression / Plan
-
PCP: Stella Sutherland PA-C
Finishing And Shipping Supervisor: Dr. Kiera Diaz
Impression:
Admitted with fall, clavicle fracture and possible acute HF 08/15/24
Syncope
Fall and left clavicle fracture
Acute on chronic HFpEF
Recurrent pleural effusion
s/p Left Asept pleural catheter placement 11/29/23, removed after admission to [facility] with VATS and pulmonary decortication 01/2024
Small to moderate B/L pleural effusions by CXR 08/15/2024
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
Hyponatremia
Paroxysmal atrial fibrillation
Prior PVI (2016)
s/p PFA 08/24/23
Tikosyn stopped during [facility] rehab stay 02/2024 and now on chronic amiodarone
Chronic anticoagulation on Eliquis
Takotsubo CM w/recovered EF (2005)
Negative workup for cardiac amyloid
HLD
HTN
MR
Renal nephrosis
Lung Nodule (2021, stable)
Anemia
celiac dz
Echo 05/18/2023: EF 69%, stage II diastolic dysfunction. Moderately dilated right atrium. Mild to moderate MR. Mild TR. PAP 36 mmHg. Small pericardial effusion
Echo 11/25/2023: EF 55-60%, global longitudinal strain is -14.2, stage III diastolic dysfunction, mild MR, dilated left atrium, aortic sclerosis, normal RV, pulmonary artery systolic pressure 45-50 mmHg
Plan:
-Patient came to [facility] ER yesterday after fall and is now being mated with syncope, clavicle fracture and possible HFpEF with consultation to cardiology. Patient was seen in the office on 07/17/2024 and her proBNP was felt to be acceptable although
her weight was up to 136 lbs with her previous weight being 133 lbs, there were also moderate bilateral pleural effusions. Usual dose of torsemide 20 mg daily was continued and the patient was agreeable to referral for palliative care assessment.
eCW tasks was reviewed by me and patient was given 1 unit PRBCs on 08/02/2024 for Hgb of 7.7 and the Hgb only improved up to 8.2 so a second unit was given on 08/06/24. Remote device check 08/08/2024 had a 7-hour long atrial flutter episode and patient
was already on Eliquis, no other changes, but later that day patient called with weight gain and was told to take additional torsemide 20 mg for a total of 40 mg daily on 08/08/2024 and 08/09/2024 and although she lost 4 lbs she had ongoing GILLIAM and
fatigue. Then patient was preparing for a scheduled capsule endoscopy for her celiac disease by taking Miralax and after swallowing the capsule she felt disoriented, lost her sense of balance and had a fall. Patient was brought to [facility] ER and
admitted for syncope, clavicle fracture and possible acute on chronic HFpEF. Patient was given Lasix 40 mg IV x 1 in the ER. Her Cre on arrival was 1.0 and today is up to 1.4.
-ECG reviewed by me is SR with nonspecific ST changes, there is 1 atrial paced beat
-proBNP on admission was 2340 compared to proBNP 1650 on 07/10/2024 which is her baseline. Patient was given Lasix 40 mg IV x 1 in the ER last night and reports improved conversational dyspnea and bloating, although ongoing LE edema. Cre was 1.0 on
admission and is now up to 1.4. Will not give additional Lasix IV today.
-Patient was taking torsemide 20 mg daily for the most part prior to admission, but just prior to admission the dose had been increased to 20 mg BID for CHF symptoms which seems to be centered around 2 units PRBCs transfused in the last 2 weeks.
Patient is currently ordered torsemide 20 mg daily
-Outpatient dose of Toprol XL 25 mg daily has been continued
-Patient is not chronically on NILAY/ARB/ARNI due to hypotension
-Outpatient dose of spironolactone 12.5 mg MWF has been continued
-Patient is not chronically on an SGLT2 inhibitor due to history of UTI
-Previous cardiac amyloid workup was negative
-Suspect syncope was related to frequent defecation and orthostatic. There is no history of syncope. Patient has not previously been orthostatic nor has she required midodrine in the past.
-Hgb was 10.6 on admission and is down to 10.2 today. Patient had 2 units PRBCs in the last 2 weeks. Transfusions have been arranged by gastroenterology
-Patient and family also inquiring about possible albumin transfusion with hypoalbuminemia. Albumin level as low as 1.5 on 05/26/2024, but currently 2.1 on labs reviewed by me from 08/15/2024.
-Last echo from 11/25/2023 as noted above with preserved EF and stage III diastolic dysfunction. Repeat echo ordered by me.
-Patient with known paroxysmal A-fib and appears a paced on telemetry. Device check in the office on 05/22/2024 showed an A-fib burden of 1%, but by most recent device check in the ER on 08/15/2024 atrial arrhythmia burden has increased to 53%. Her
usual dose of amiodarone 100 mg daily has been continued. Can consider AVJ as patient has PPM in place, but this does not appear to be acute and can be considered for future management options.
-Continue Eliquis 2.5 mg BID (age 79, Cre 1.4, wt 63.6 kg) as weight is generally less than 60 kg
--- NOTE | 2024-08-16 09:07 | W.CARD.DEVCH ---
Cardiac Device Check
-
Device: Pacemaker
Photoengraving Etcher: Medtronic
The patient's device was interrogated with assistance of the device customer counter representative followed by a complete physician review. The device had normal function. No abnormalities seen.
Device interrogation report reviewed by me on 08/16/2024, there is 13 years of battery longevity, she has been in A. tach/flutter that is paroxysmal and this is known, episodes last for 10+ hours at a time. No lead issues identified on device
interrogation.
--- NOTE | 2024-08-16 11:50 | CM ---
Patient seen at bedside on . Patient states that she lives with her son in the [facility] [place], she is on the first floor. Patient stated that she uses the [facility] in [place] and her PCP is Dr. Rubio. Patient has had [facility] pt and OT
previously and CM will send referral via all scripts. CM will continue to follow for discharge planning needs.
Plan; home with [facility] vs SNF; pending assessments
[2024-08-16] MEDS: FLEXBUMIN 100 IV (13:15)
[2024-08-16] MEDS: LIDOCAINE 4% PATCH TOPICAL (13:17)
[2024-08-16] MEDS: REMOVE LIDOCAINE PATCH REMOVE (21:21)
[2024-08-16] MEDS: FLUSH (NSS) 2 FLUSH IV ×2 (22:00→22:03)
[2024-08-16] MEDS: PACERONE PO (22:04)
[2024-08-16] MEDS: ASPIR LOW (ENTERIC COATED) 81 MG PO (22:45)
[2024-08-16] MEDS: ELIQUIS PO (22:45)
[2024-08-17] VITALS (8 sets, daily range): BP systolic 70–130; BP diastolic 47–70; BMI 23.0
--- NOTE | 2024-08-17 00:09 | PTCARENOTE ---
Patient refused Eliquis for concerns with IRAD procedures in am. TT to [facility], covering house. Patient ok for Eliquis and ASA. Patient continued to refuse Eliquis and will restart in am.
[2024-08-17] MEDS: SYNTHROID 150 MCG PO (05:04)
[2024-08-17] MEDS: DILAUDID 0.5 MG IV ×3 (05:04→20:41)
[2024-08-17] MEDS: FLUSH (NSS) 2 FLUSH IV (05:05)
--- NOTE | 2024-08-17 07:06 | W.PN.HOSP.TC ---
Today's Communication/Plan
-
monitor H&H
daily weights I&O
monitor renal function, cont home Torsemide for now
PT/OT
pain control
Discharge planning SNF rehab
Assessment / Plan
Assessment / Plan
Physical Exam
General: No acute distress, appears comfortable
HEENT: NormoCephalic, Moist mucous membranes and Atraumatic
Respiratory: Clear
Cardiac: S1/S2 and Regular Rhythm; No Murmur or Rub
GI: Soft, Non Tender, abd distended and Normal Bowel Sounds
Musculoskeletal: No Clubbing, No Cyanosis, Left arm in sling, Bilateral lower extremities edema +1
Skin: No Rash
Neuro: AO x 3 conversant coherent
Psych: Calm
79F hx pleural effusion HFpEF HTN afib ppm Celiac dz HLD pulm htn here for evaluation syncope with associate clavicle and rib fractures likely d/t fall. Syncope had occurred while taking bowel prep for capsule endoscopy. Patient endorsed feeling
lightheaded/dehydrated prior to event.
# Syncope likely vasovagal
#Left clavicle fracture-sling in place
#Lt 3rd thru 5th rib fractures
#traumatic fractures, likely osteoporosis contributing
- CT head negative
- Knee, hip, shoulder, chest x-ray results appreciated
- Monitor Orthostatics
-orthopedic consult appreciated conservative mgmt clavicle fx with left arm sling recommended
# Anemia of chronic disease
- Hemoglobin stable in 10 range
-No active bleeding
- Continue to monitor
- ingested capsule endoscopy prior to coming to hospital, endorsed family will bring in kit for capsule retrieval
#ANNA
likely prerenal
monitor renal function
cont home Torsemide, may consider holding if ANNA persists/worsens
# Possible CHF exacerbation, less likely
- received a dose of Lasix in ER
- Spironolactone continued
- Strict MARLENA, daily weight, fluid restriction
-cardiology consult appreciated pacemaker interrogated noted normal function but increased afib burden, Amiodarone increased to BID, no additional Lasix recommended, cont Torsemide
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
#History of Takotsubo CM w/recovered EF (2005)
# Paroxysmal atrial fibrillation
# Prior PVI (2016)
# s/p PFA 08/24/23
-continue DOG CONTROL OFFICER eliquis 2.5 bid
-continue DOG CONTROL OFFICER metoprolol
-continue Amio as above
# Hypothyroidism
- Synthroid continued
-TFT appears to suggest Hypothyroidism uncontrolled, TSH elevated
-pt endorses compliance with synthroid and no recent changes in dose
-repeating TFT to confirm prior to increasing dose.
# Chronic pleural effusions suspected multifactorial from partial hypoalbuminemia, deconditioning, possible malnutrition unclear severity
# Right pleural effusion status post thoracentesis on 05/23/2024 with symptomatic improvement in 1350 cc of fluid removed
# History of recurrent left-sided pleural effusion status post admission to [place] with VATS and pulmonary decortication 01/2024.
#08/16/24 Abd US notes Large Right Pleural Effusion and small to moderate ascites
Blood pressure also borderline low hypotensive
albumin boluses given
IR alyssa appreciated not enough fluid for paracentesis, Right thoracentesis performed 1.5L removed
#Lung Nodule
# Chronic Hyponatremia
-Monitor
-Continue diuresis and PO fluid restriction
# Celiac disease
gluten free diet
#Moderate portal hypertensive gastropathy
PT/OT appreciated SNF rehab
DVT PPX on eliquis
Code status - full code
I spent a total of 45 minutes with the patient or on the floor. More than 50% of this time involved counseling and coordination of care.
Anticipated Discharge: 24 - 48 hours
Subjective/Interval History
-
Date of Service: August 17, 2024
Objective Data
-
Labs:
Laboratory Results
08/17/24
06:00
WBC Pending
Hgb Pending
Hct Pending
Plt Count Pending
Sodium Pending
Potassium Pending
Chloride Pending
Carbon Dioxide Pending
BUN Pending
Creatinine Pending
Glucose Pending
Calcium Pending
Total Bilirubin Pending
AST Pending
ALT Pending
Alkaline Phosphatase Pending
Vital Signs:
Vital Signs
Temp Pulse Resp BP Pulse Ox
98.4 F 68 17 99/47 94
08/17/24 03:05 08/17/24 03:05 08/17/24 03:05 08/17/24 03:05 08/17/24 03:05
I&O
08/16/24 08/17/24 08/18/24
06:59 06:59 06:59
Intake Total 480 / 480 600 / 600
Balance 480 / 480 600 / 600
[2024-08-17 08:39] LABS: Hematocrit 26.5 % (37.0-47.0); Hemoglobin 8.7 g/dL (12.0-16.0); Mean Corp Hgb Conc. 32.8 g/dL (33.0-37.0); Mean Corpuscular Volume 104.7 fL (81.0-99.0); Platelet Count 320 10^3/uL (130-400); Red Cell Dist. Width 20.3 % (11.5-14.5)
[2024-08-17] MEDS: LIDOCAINE 4% PATCH 2 PATCH TOPICAL (08:47)
[2024-08-17] MEDS: TYLENOL 650 MG PO (08:48)
[2024-08-17] MEDS: TOPROL XL 25 MG PO (08:50)
[2024-08-17] MEDS: DEMADEX 20 MG PO (08:50)
[2024-08-17] MEDS: ZETIA 10 MG PO (08:50)
[2024-08-17] MEDS: VITAMIN C 1000 MG PO (08:51)
[2024-08-17] MEDS: KCL 20 MEQ PO (08:51)
[2024-08-17] MEDS: PACERONE 100 MG PO ×2 (08:52→20:37)
[2024-08-17] MEDS: ELIQUIS 2.5 MG PO ×2 (08:52→20:37)
[2024-08-17] MEDS: ALDACTONE 12.5 MG PO (08:53)
[2024-08-17] MEDS: LIPITOR 10 MG PO (08:56)
[2024-08-17 09:39] LABS: ALT (SGPT) 19 U/L (0-35); AST (SGOT) 38 U/L (14-36); Albumin 2.0 g/dl (3.5-5.0); Alkaline Phosphatase 77 U/L (38-126); Blood Urea Nitrogen 48 mg/dl (7-17); Calcium 7.7 mg/dl (8.4-10.2); Carbon Dioxide 23 mmol/L (22-30); Chloride 103 mmol/L (98-107); Estimated Creatinine Clearance 22 ml/min; Glucose 142 mg/dl (70-99); Magnesium 1.8 mg/dl (1.6-2.3); Potassium 4.0 mmol/L (3.5-5.1); Sodium 129 mmol/L (135-145); Total Protein 5.3 g/dl (6.3-8.2); eGFR 26.20
[2024-08-17] MEDS: FLEXBUMIN 100 IV ×2 (12:09→20:37)
[2024-08-17 12:38] LABS: Iron 41 ug/dl (37-170)
[2024-08-17 12:48] LABS: Total Iron Binding Capacity 149 ug/dl (265-497)
[2024-08-17 12:52] LABS: Body Fluid Second Tech EM
--- NOTE | 2024-08-17 13:05 | PN.CDI ---
CDI
- -
CDI:
Physician Documentation Request
Admit Date: 08/15/24 18:37
Dear Doctor Pepper,
Hospitalist progress note states 'Chronic pleural effusions suspected multifactorial from partial hypoalbuminemia and deconditioning and malnourished'
To ensure the quality of the medical record, based on the above information and the recognized standards for malnutrition , could you please verify in your progress notes which of the following responses best reflects the patient's nutritional
status:
(Specify severity) Malnutrition is/was present and is a clinical diagnosis (please provide additional support in the medical record)
No nutritional deficiency
Other
[place] Criteria ([facility] Hospitalist 2017)
2 or more criteria must be present for either
non severe or severe malnutrition
Note that the criteria differs related to the
presence of an acute or chronic illness
Acute Illness Chronic Illness
Energy Intake Non Severe: <75% for >7 days Non Severe: <75% for >1 month
Severe: <50% for >5 days Severe: <75% for >1 month
Weight Loss Non Severe: 1-2% over 1 week Non Severe: 5% over 1 month
5% over 1 month 7.5% over 3 months
7.5% over 3 months 10% over 6 months
1 year N/A 20% over 1 year
Severe: >2% over 1 week Severe: >5% over 1 month
>5% over 1 month >7.5% over 3 months
>7.5% over 3 months >10% over 6 months
1 year N/A >20% over 1 year
Body Fat Non Severe: Mild Decrease Non Severe: Mild Loss
Severe: Moderate Decrease Severe: Severe Loss
Muscle Mass Non Severe: Mild Decrease Non Severe: Mild Loss
Severe: Moderate Decrease Severe: Severe Loss
Fluid Accumulation Non Severe: Mild Accumulation Non Severe: Mild Accumulation
Severe: Moderate to severe Severe: Moderate to severe
accumulation accumulation
Reduced Outpatient Coder Strength Non Severe: N/A Non Severe: N/A
Severe: Measurably reduced Severe: Measurably reduced
Use of terms such as suspected, likely, concern for, or probable (associated with a specific diagnosis that is being evaluated, monitored, or treated as if it exists) are acceptable and can be coded in the inpatient setting, when documented at the
time of discharge.
Thank you,
Leonor Pugh RN, BSN
CDI Specialist
tiger text
Please use your independent medical judgment in providing your response.
--- NOTE | 2024-08-17 13:13 | PN.CDI ---
CDI
- -
CDI:
Physician Documentation Request
Admit Date: 08/15/24 18:37
Dear Doctor Pepper,
Patient presented to ED after fall. Noted history of Osteopenia in H&P.
Patient found to have Left clavicle fracture and left 3rd thru 5th rib fractures.
Please provide further specificity regarding the diagnosis of fractures:
Etiology
Traumatic
Pathologic due to osteoporosis
Pathologic due to other disease (please specify)
Due to a combination of trauma and a pathological process
but the trauma alone would not likely have been sufficient
to cause the fracture
Use of terms such as suspected, likely, concern for, or probable (associated with a specific diagnosis that is being evaluated, monitored, or treated as if it exists) are acceptable and can be coded in the inpatient setting, when documented at the
time of discharge.
Thank you,
Leonor Pugh RN, BSN
CDI Specialist
tiger text
Please use your independent medical judgment in providing your response.
--- NOTE | 2024-08-17 13:18 | PN.CDI ---
CDI
- -
CDI:
Physician Documentation Request
Admit Date: 08/15/24 18:37
Dear Doctor Pepper,
Patient presents with SOB and fall.
Recent creatinine results.
Laboratory Tests
08/15/24 08/16/24 08/17/24
14:45 05:43 08:24
Creatinine 1.0 1.4 H 1.9 H
Criteria for ANNA*
1 Increase in serum creatinine by > or = to 0.3 mg/dL (> or = to 26.5 micromol/L) within 48 hours, OR
2 Increase in serum creatinine to > or = to 1.5 times baseline, which is known or presumed to have occurred within 7 days, OR
3 Urine volume < 0.5 nL/kg/hour for six hours
Could you please provide a diagnosis that supports the above lab abnormalities and additional evaluation :
ANNA
Abnormal lab value clinically insignificant
Other
Use of terms such as suspected, likely, concern for, or probable (associated with a specific diagnosis that is being evaluated, monitored, or treated as if it exists) are acceptable and can be coded in the inpatient setting, when documented at the
time of discharge.
Thank you,
Leonor Pugh RN, BSN
CDI Specialist
tiger text
Please use your independent medical judgment in providing your response.
[2024-08-17 13:46] LABS: Hematocrit 27.1 % (37.0-47.0); Hemoglobin 9.0 g/dL (12.0-16.0)
[2024-08-17 14:35] LABS: Ferritin 136.0 ng/ml (11.1-264.0)
--- NOTE | 2024-08-17 15:02 | W.PN.CARDCBS ---
Addendum entered and electronically signed by Mendoza Perera MD 08/17/24 16:14:
I saw and examined the patient.
The MUNICIPAL ENGINEER or PA's note was reviewed and I agree with the note.
Comment: General: Well developed, well nourished in NAD.
Neck: Supple, no JVD, HJR, carotids +2 B/L, no bruits bilaterally.
Heart: Non displaced PMI, RRR, no murmurs, No S3, S4, no rubs.
Lungs: Scattered rhonchi
Extremities: No clubbing, cyanosis or edema bilaterally.
Neuro: Grossly nonfocal, awake, alert and oriented x3.
She has a multitude of somatic complaints but appears stable from cardiovascular standpoint. Stable for discharge from cardiology viewpoint. Follow-up has been arranged. Will sign off and call with questions
Original Note:
Today's Communication / Plan
-
Continue PO torsemide 20mg daily
Follow renal function
Continue Toprol, spironolactone
Amiodarone now slightly higher at 100mg BID
Continue Eliquis
Follow up arranged
Impression / Plan
-
PCP: Stella Sutherland PA-C
Fitter Helper: Dr. Kiera Diaz
Impression:
Admitted with fall, clavicle fracture and possible acute HF 08/15/24
Syncope
Fall and left clavicle fracture
Acute on chronic HFpEF
Recurrent pleural effusion
s/p Left Asept pleural catheter placement 11/29/23, removed after admission to [place] with VATS and pulmonary decortication 01/2024
Small to moderate B/L pleural effusions by CXR 08/15/2024
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
Hyponatremia
Paroxysmal atrial fibrillation
Prior PVI (2016)
s/p PFA 08/24/23
Tikosyn stopped during [facility] rehab stay 02/2024 and now on chronic amiodarone
Chronic anticoagulation on Eliquis
Takotsubo CM w/recovered EF (2005)
Negative workup for cardiac amyloid
HLD
HTN
MR
Renal nephrosis
Lung Nodule (2021, stable)
Anemia
celiac dz
Echo 05/18/2023: EF 69%, stage II diastolic dysfunction. Moderately dilated right atrium. Mild to moderate MR. Mild TR. PAP 36 mmHg. Small pericardial effusion
Echo 11/25/2023: EF 55-60%, global longitudinal strain is -14.2, stage III diastolic dysfunction, mild MR, dilated left atrium, aortic sclerosis, normal RV, pulmonary artery systolic pressure 45-50 mmHg
Echo 08/16/2024: EF 60-65%, mild cLVH, stage II diastolic dysfunction, mild MR, severe TR, estimated PAP 70 mmHg, small to moderate pericardial effusion w/o evidence of hemodynamic compromise
Plan:
-Presented after fall/syncope in the setting of prepping for capsule endoscopy. Admitted with clavicle fracture. Also concern for acute HF.
-ProBNP 2340 on arrival, given a single dose of IV lasix in ER, however creat bumped from 1.0 to 1.9 08/17. Will hold off on additional IV lasix.
-Continue usual dose of torsemide PO 20mg daily.
-Echo 08/16 noted preserved EF with severe TR and small to moderate pericardial effusion as noted above.
-Also noted to have moderate pleural effusion and is s/p R thoracentesis for 1500 cc 08/17. Fluid studies pending.
-Continue Toprol and Spironolactone. Not on NILAY/ARB/ARNI due to hypotension. No SGLT2 inhibitor due to h/o UTI.
-Previous cardiac amyloid workup negative.
-Hgb 8.7 08/17, improved slightly to 9.0 on repeat. has had 2 units PRBCs in the past 2 weeks.
-Also continues w/ hypoalbuminemia. Given albumin 08/17.
-Known h/o paroxysmal atrial fibrillation. No arrhythmias noted on telemetry. Afib burden was increased on recent device check, so amiodarone increased to 100mg BID.
-Continue Eliquis 2.5mg BID for now. Follow closely w/ anemia.
-Follow up arranged.
HPI: Patient came to [facility] ER yesterday after fall and is now being mated with syncope, clavicle fracture and possible HFpEF with consultation to cardiology. Patient was seen in the office on 07/17/2024 and her proBNP was felt to be acceptable
although her weight was up to 136 lbs with her previous weight being 133 lbs, there were also moderate bilateral pleural effusions. Usual dose of torsemide 20 mg daily was continued and the patient was agreeable to referral for palliative care
assessment. eCW tasks was reviewed by me and patient was given 1 unit PRBCs on 08/02/2024 for Hgb of 7.7 and the Hgb only improved up to 8.2 so a second unit was given on 08/06/24. Remote device check 08/08/2024 had a 7-hour long atrial flutter episode
and patient was already on Eliquis, no other changes, but later that day patient called with weight gain and was told to take additional torsemide 20 mg for a total of 40 mg daily on 08/08/2024 and 08/09/2024 and although she lost 4 lbs she had ongoing
GILLIAM and fatigue. Then patient was preparing for a scheduled capsule endoscopy for her celiac disease by taking Miralax and after swallowing the capsule she felt disoriented, lost her sense of balance and had a fall. Patient was brought to [facility] ER
and admitted for syncope, clavicle fracture and possible acute on chronic HFpEF. Patient was given Lasix 40 mg IV x 1 in the ER. Her Cre on arrival was 1.0 and today is up to 1.4.
Progress Note - Fitter Helper
Subjective
Date of Service: August 17, 2024
Notes pain along ribs and clavicle, however no cardiac complaints.
Objective
Labs:
08/17/24 13:30
08/17/24 08:24
Labs
Hgb 9.0 g/dL (12.0-16.0) L 08/17/24 13:30
Hct 27.1 % (37.0-47.0) L 08/17/24 13:30
Plt Count 320 10^3/uL (130-400) 08/17/24 08:24
Sodium 129 mmol/L (135-145) L 08/17/24 08:24
Potassium 4.0 mmol/L (3.5-5.1) 08/17/24 08:24
BUN 48 mg/dl (7-17) H 08/17/24 08:24
Creatinine 1.9 mg/dL (0.6-1.0) H 08/17/24 08:24
Glucose 142 mg/dl (70-99) H 08/17/24 08:24
Troponins
08/15/24
14:45
Troponin I 0.014
Vital Signs and I&O:
Vital Signs
Temp Pulse Resp BP Pulse Ox
97.4 F 62 20 117/54 92
08/17/24 12:46 08/17/24 12:46 08/17/24 12:46 08/17/24 12:46 08/17/24 12:46
Vital Signs
Temp Pulse Resp BP Pulse Ox
97.4 F 62 20 117/54 92
08/17/24 12:46 08/17/24 12:46 08/17/24 12:46 08/17/24 12:46 08/17/24 12:46
Intake & Output
08/15/24 08/16/24 08/17/24 08/18/24
06:59 06:59 06:59 06:59
Intake Total 480 / 480 600 / 600
Balance 480 / 480 600 / 600
Physical Exam
Physical Exam
GEN: No distress, awake, alert, oriented x3
HEENT: supple, anicteric, mmm
LUNGS: CTA b/l, no wheezes/rales
CV: Reg, S1/S2, no murmur
EXT: No clubbing or cyanosis. LE edema noted
NEURO: Gross non-focal
SKIN: Warm, dry, no rash
[2024-08-17 15:06] LABS: Folate 13.3 ng/ml (2.76-20); Vitamin B12 372 pg/ml (239-931)
--- NOTE | 2024-08-17 17:01 | CM ---
Reviewed PT OT with pt which recommended SNF.
PAC data given to patient she said she will discuss with son.
Left arm sling
CM enter SNF choices
PLAN To SNf after located
[2024-08-17] MEDS: REMOVE LIDOCAINE PATCH REMOVE (20:39)
[2024-08-17] MEDS: ASPIR LOW (ENTERIC COATED) 81 MG PO (21:12)
[2024-08-18] VITALS (9 sets, daily range): BP systolic 103–154; BP diastolic 42–75; PULSE 65–82; BMI 23.0
[2024-08-18] MEDS: SYNTHROID 150 MCG PO (05:16)
[2024-08-18] MEDS: FLEXBUMIN 100 IV (05:16)
[2024-08-18 05:39] LABS: ALT (SGPT) 15 U/L (0-35); AST (SGOT) 31 U/L (14-36); Albumin 2.2 g/dl (3.5-5.0); Alkaline Phosphatase 68 U/L (38-126); Blood Urea Nitrogen 53 mg/dl (7-17); Calcium 7.6 mg/dl (8.4-10.2); Carbon Dioxide 20 mmol/L (22-30); Chloride 105 mmol/L (98-107); Estimated Creatinine Clearance 23 ml/min; Glucose 98 mg/dl (70-99); Magnesium 1.8 mg/dl (1.6-2.3); Potassium 4.1 mmol/L (3.5-5.1); Sodium 131 mmol/L (135-145); Total Protein 5.4 g/dl (6.3-8.2); eGFR 27.96
--- NOTE | 2024-08-18 07:07 | W.PN.HOSP.TC ---
Today's Communication/Plan
-
pain control
1PRBC transfusion
monitor H&H
Hold diuretic
monitor renal function
Assessment / Plan
Assessment / Plan
Physical Exam
General: mild moderate distress d/t pain
HEENT: NormoCephalic, Moist mucous membranes and Atraumatic on nasal cannula supplementation 2L
Respiratory: Clear
Cardiac: S1/S2 and Regular Rhythm; No Murmur or Rub
GI: Soft, Non Tender, abd distended and Normal Bowel Sounds
Musculoskeletal: No Clubbing, No Cyanosis, Left arm in sling, Bilateral lower extremities edema +1
Skin: No Rash
Neuro: AO x 3 conversant coherent
Psych: Calm
79F hx pleural effusion HFpEF HTN afib ppm Celiac dz HLD pulm htn here for evaluation syncope with associate clavicle and rib fractures likely d/t fall. Syncope had occurred while taking bowel prep for capsule endoscopy. Patient endorsed feeling
lightheaded/dehydrated prior to event.
# Syncope likely vasovagal (patient was undergoing bowel prep for capsule endoscopy at the time)
#Left clavicle fracture-sling in place
#Lt 3rd thru 5th rib fractures
#traumatic fractures, likely osteoporosis contributing
#Acute hypoxia
- CT head negative
- Knee, hip, shoulder, chest x-ray results appreciated
- Monitor Orthostatics
-orthopedic consult appreciated conservative mgmt clavicle fx with left arm sling recommended
-08/18 experienced acute worsening back pain with radiation to left arm, associate hypoxia pleuritic pain likely d/t rib fx's atelectasis
-Incentive Spirometer
-scheduled Tylenol Q4HWA, prn oxycodone, dilaudid prn Severe break through pain
-Troponin initially wnl, but later trended up, patient denies chest pain, ekg poor study but no significant acute changes noted from prior ekg, likely Non-ischemic myocardial injury
-Follow up Thoracic Lumbar XR
# Anemia of chronic disease
- Hemoglobin trended from 10 range to 7.8 1PRBC transfused with good post-transfusion response noted
- No obvious signs of bleeding
- Continue to monitor
- ingested capsule endoscopy prior to coming to hospital, endorsed family will bring in kit for capsule retrieval
#ANNA
likely prerenal
monitor renal function
home torsemide on hold
fluid restriction relaxed to 60 oz
#Possible CHF exacerbation, less likely
- received a dose of Lasix in ER
- Spironolactone continued
- Strict MARLENA, daily weight, fluid restriction
-cardiology consult appreciated pacemaker interrogated noted normal function but increased afib burden, Amiodarone increased to BID, no additional Lasix recommended, -home Torsemide placed on hold d/t ANNA as above
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
#History of Takotsubo CM w/recovered EF (2005)
# Paroxysmal atrial fibrillation
# Prior PVI (2016)
# s/p PFA 08/24/23
-continue PRIVACY SPECIALIST eliquis 2.5 bid
-continue PRIVACY SPECIALIST metoprolol
-continue Amio as above
# Hypothyroidism
- Synthroid continued
-TFT appears to suggest Hypothyroidism uncontrolled, TSH elevated
-pt endorses compliance with synthroid and no recent changes in dose
-repeating TFT to confirm prior to increasing dose.
# Chronic pleural effusions suspected multifactorial from partial hypoalbuminemia, deconditioning, possible malnutrition unclear severity
# Right pleural effusion status post thoracentesis on 05/23/2024 with symptomatic improvement in 1350 cc of fluid removed
# History of recurrent left-sided pleural effusion status post admission to [place] with VATS and pulmonary decortication 01/2024.
#08/16/24 Abd US notes Large Right Pleural Effusion and small to moderate ascites
Blood pressure also borderline low hypotensive
albumin boluses given
IR elvieal appreciated not enough fluid for paracentesis, Right thoracentesis performed 1.5L removed
#Lung Nodule
# Chronic Hyponatremia
-Monitor
-Continue diuresis and PO fluid restriction
# Celiac disease
gluten free diet
#Moderate portal hypertensive gastropathy
PT/OT appreciated SNF rehab
DVT PPX on eliquis
Code status - full code
I spent a total of 45 minutes with the patient or on the floor. More than 50% of this time involved counseling and coordination of care.
Anticipated Discharge: 24 - 48 hours
Subjective/Interval History
-
Date of Service: August 18, 2024
Severe pain this morning resulting in hypoxia, suspect most likely due to rib fractures and acute on chronic back pain (suspect vertebral compression fracture). Oxygenation improved with pain control though still requiring 2L.
Objective Data
-
Labs:
Laboratory Results
08/18/24 08/18/24
04:22 06:48
WBC Pending
Hgb Pending
Hct Pending
Plt Count Pending
Sodium 131 L
Potassium 4.1
Chloride 105
Carbon Dioxide 20 L
BUN 53 H
Creatinine 1.8 H
Glucose 98
Calcium 7.6 L
Total Bilirubin 0.4
AST 31
ALT 15
Alkaline Phosphatase 68
Vital Signs:
Vital Signs
Temp Pulse Resp BP Pulse Ox
98 F 75 18 127/58 92
08/18/24 03:26 08/18/24 03:26 08/18/24 03:26 08/18/24 03:26 08/18/24 03:26
I&O
08/17/24 08/18/24 08/19/24
06:59 06:59 06:59
Intake Total 600 / 600 840 / 840
Balance 600 / 600 840 / 840
[2024-08-18 07:10] LABS: Hematocrit 22.8 % (37.0-47.0); Hemoglobin 7.8 g/dL (12.0-16.0); Mean Corp Hgb Conc. 34.2 g/dL (33.0-37.0); Mean Corpuscular Volume 103.2 fL (81.0-99.0); Platelet Count 264 10^3/uL (130-400); Red Cell Dist. Width 20.0 % (11.5-14.5)
[2024-08-18] MEDS: DILAUDID 0.5 MG IV ×3 (07:11→15:43)
[2024-08-18] MEDS: PACERONE 100 MG PO ×2 (07:59→21:09)
[2024-08-18] MEDS: TOPROL XL 25 MG PO (08:05)
[2024-08-18] MEDS: VITAMIN C 1000 MG PO (08:05)
[2024-08-18] MEDS: DEMADEX 20 MG PO (08:05)
[2024-08-18] MEDS: LIDOCAINE 4% PATCH 2 PATCH TOPICAL (08:05)
[2024-08-18] MEDS: ZETIA 10 MG PO (08:05)
[2024-08-18] MEDS: ELIQUIS 2.5 MG PO ×2 (08:05→21:09)
[2024-08-18] MEDS: KCL 20 MEQ PO (08:05)
[2024-08-18] MEDS: TYLENOL 650 MG PO ×3 (11:43→21:09)
[2024-08-18] MEDS: ROXICODONE 5 MG PO ×2 (12:17→18:10)
[2024-08-18] MEDS: VITAMIN B-12 1000 MCG PO (12:17)
[2024-08-18] MEDS: BenGay-Like 1 APPLIC TOPICAL ×3 (12:18→21:07)
[2024-08-18 12:51] LABS: Troponin I 0.024 ng/ml
[2024-08-18 16:21] LABS: Vitamin D, 25-OH*** < 12.8 ng/mL (30-80)
[2024-08-18 17:27] LABS: Troponin I 0.060 ng/ml
--- NOTE | 2024-08-18 17:59 | PTCARENOTE ---
At 11:00 am, pt c/o pain and sob. pt states, 'my breathing is heavy and I am having hard time catching my breath.' pt's pulse ox was 88% on room air. placed pt on 2L. pt continued to feel sob increased the o2 to 5L with 93%. PRN Dilaudid given to
the pt. MD notified. EKG and trop ordered at this time. Vss. 1 unit of PRBCs ordered and administered on this pt as ordered. pt tolerated the infusion. pt currently on 2L o2 93-94%. call carreon within the reach.
[2024-08-18] MEDS: REMOVE LIDOCAINE PATCH REMOVE (21:07)
[2024-08-18] MEDS: ASPIR LOW (ENTERIC COATED) 81 MG PO (21:09)
[2024-08-18 22:43] LABS: Hematocrit 30.3 % (37.0-47.0); Hemoglobin 10.3 g/dL (12.0-16.0)
[2024-08-18 23:12] LABS: Troponin I 0.071 ng/ml
[2024-08-19] VITALS (8 sets, daily range): BP systolic 109–154; BP diastolic 49–79; PULSE 63–69; O2SAT 91; BMI 22.8
[2024-08-19] MEDS: DILAUDID 0.5 MG IV ×3 (00:15→22:25)
[2024-08-19] MEDS: TYLENOL 650 MG PO ×5 (00:15→20:32)
[2024-08-19 01:35] LABS: Urine Character Slightly Cloudy (Clear)
[2024-08-19 02:05] LABS: Urine Red Blood Cell >100 /HPF (0-2)
[2024-08-19] MEDS: SYNTHROID 150 MCG PO (05:14)
[2024-08-19 05:45] LABS: Hematocrit 30.3 % (37.0-47.0); Hemoglobin 10.0 g/dL (12.0-16.0); Mean Corp Hgb Conc. 33.0 g/dL (33.0-37.0); Mean Corpuscular Volume 99.7 fL (81.0-99.0); Platelet Count 280 10^3/uL (130-400); Red Cell Dist. Width 21.5 % (11.5-14.5)
[2024-08-19 05:54] LABS: Troponin I 0.054 ng/ml
[2024-08-19 06:09] LABS: ALT (SGPT) 13 U/L (0-35); AST (SGOT) 28 U/L (14-36); Albumin 2.0 g/dl (3.5-5.0); Alkaline Phosphatase 66 U/L (38-126); Blood Urea Nitrogen 52 mg/dl (7-17); Calcium 7.5 mg/dl (8.4-10.2); Carbon Dioxide 23 mmol/L (22-30); Chloride 105 mmol/L (98-107); Estimated Creatinine Clearance 23 ml/min; Glucose 81 mg/dl (70-99); Magnesium 1.8 mg/dl (1.6-2.3); Potassium 4.1 mmol/L (3.5-5.1); Sodium 132 mmol/L (135-145); Total Protein 5.0 g/dl (6.3-8.2); eGFR 27.96
--- NOTE | 2024-08-19 08:24 | W.PN.HOSP.TC ---
Today's Communication/Plan
-
pain control
wean O2 supplementation as tolerated
PT/OT
out of bed to chair
monitor H&H
Bowel regimen
holding diuresis at this time d/t ANNA
monitor renal function
monitor I/O daily weights
Assessment / Plan
Assessment / Plan
Physical Exam
General: no acute distress appears comfortable
HEENT: NormoCephalic, Moist mucous membranes and Atraumatic on nasal cannula supplementation 2L
Respiratory: Clear
Cardiac: S1/S2 and Regular Rhythm; No Murmur or Rub
GI: Soft, Non Tender, abd distended and Normal Bowel Sounds
Musculoskeletal: No Clubbing, No Cyanosis, Left arm in sling, Bilateral lower extremities edema +1
Skin: No Rash
Neuro: AO x 3 conversant coherent
Psych: Calm
79F hx pleural effusion HFpEF HTN afib ppm Celiac dz HLD pulm htn here for evaluation syncope with associate clavicle and rib fractures likely d/t fall. Syncope had occurred while taking bowel prep for capsule endoscopy. Patient endorsed feeling
lightheaded/dehydrated prior to event.
# Syncope likely vasovagal (patient was undergoing bowel prep for capsule endoscopy at the time)
#Left clavicle fracture-sling in place
#Lt 3rd thru 5th rib fractures
#traumatic fractures, likely osteoporosis contributing
#Acute hypoxia likely 2/2 poor inspiratory effort d/t pain from rib fractures
- CT head negative
- Knee, hip, shoulder, chest x-ray results appreciated
- Monitor Orthostatics
-orthopedic consult appreciated conservative mgmt clavicle fx with left arm sling recommended
-08/18 experienced acute worsening back pain with radiation to left arm, associate hypoxia pleuritic pain likely d/t rib fx's atelectasis
-Incentive Spirometer
-scheduled Tylenol Q4HWA, prn oxycodone, dilaudid prn Severe break through pain
-Troponin initially wnl, but later trended up, patient denies chest pain, ekg poor study but no significant acute changes noted from prior ekg, likely Non-ischemic myocardial injury
-Thoracic Lumbar XR appreciated multilevel discogenic degenerative disease, small to mod b/l pleural effusions, acute interstitial/alveolar cardiogenic edema, large dense b/l lower lobe airspace consolidations (more likely atelectasis given overall
clinical picture afebrile, no significant leukocytosis, no cough), no vertebral compression fractures noted
-wean O2 supplementation as tolerated. Consider repeat CXR if hypoxia doesn't improve/resolve
# Anemia of chronic disease
- Hemoglobin trended from 10 range to 7.8 1PRBC transfused with good post-transfusion response noted
- No obvious signs of bleeding
- Continue to monitor
- ingested capsule endoscopy prior to coming to hospital, has kit for retrieval when passes. Noted still present in recent thoracic lumbar x-rays
#Constipation
bowel regimen
#ANNA
likely prerenal
monitor renal function
home torsemide on hold
fluid restriction relaxed to 60 oz
#Possible CHF exacerbation, less likely
- received a dose of Lasix in ER
- Spironolactone continued
- Strict MARLENA, daily weight, fluid restriction
-cardiology consult appreciated pacemaker interrogated noted normal function but increased afib burden, Amiodarone increased to BID, no additional Lasix recommended, -home Torsemide placed on hold d/t ANNA as above
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
#History of Takotsubo CM w/recovered EF (2005)
# Paroxysmal atrial fibrillation
# Prior PVI (2016)
# s/p PFA 08/24/23
-continue BENEFITS REPRESENTATIVE eliquis 2.5 bid
-continue BENEFITS REPRESENTATIVE metoprolol
-continue Amio as above
# Hypothyroidism
- Synthroid continued
-TFT appears to suggest Hypothyroidism uncontrolled, TSH elevated
-pt endorses compliance with synthroid and no recent changes in dose
-repeated TFT show TSH trending down
-cont current synthroid for now, outpt follow up with Endocrinology recommended
# Chronic pleural effusions suspected multifactorial from partial hypoalbuminemia, deconditioning, possible malnutrition unclear severity
# Right pleural effusion status post thoracentesis on 05/23/2024 with symptomatic improvement in 1350 cc of fluid removed
# History of recurrent left-sided pleural effusion status post admission to [place] with VATS and pulmonary decortication 01/2024.
#08/16/24 Abd US notes Large Right Pleural Effusion and small to moderate ascites
Blood pressure also borderline low hypotensive
albumin boluses given
IR alyssa appreciated not enough fluid for paracentesis, Right thoracentesis performed 1.5L removed- no growth to date in cultures, path report pending
#Lung Nodule
# Chronic Mild Hyponatremia
-cont fluid restriction as above
# Celiac disease
gluten free diet
#Moderate portal hypertensive gastropathy
PT/OT appreciated SNF rehab
DVT PPX on Eliquis
Code status - full code
I spent a total of 50 minutes with the patient or on the floor. More than 50% of this time involved counseling and coordination of care.
Anticipated Discharge: 24 - 48 hours
Subjective/Interval History
-
Date of Service: August 19, 2024
Pain persists but improving tolerable with current pain regimen. Weaning down on oxygen supplementation. Constipation also persists, intermittent nausea, no vomiting.
Objective Data
-
Labs:
Laboratory Results
08/18/24 08/19/24
22:04 04:31
WBC 6.0
Hgb 10.3 L D 10.0 L
Hct 30.3 L 30.3 L
Plt Count 280
Sodium 132 L
Potassium 4.1
Chloride 105
Carbon Dioxide 23
BUN 52 H
Creatinine 1.8 H
Glucose 81
Calcium 7.5 L
Total Bilirubin 0.3
AST 28
ALT 13
Alkaline Phosphatase 66
Vital Signs:
Vital Signs
Temp Pulse Resp BP Pulse Ox
97.8 F 65 17 123/56 95
08/19/24 03:31 08/19/24 03:31 08/19/24 03:31 08/19/24 03:31 08/19/24 03:31
I&O
08/18/24 08/19/24 08/20/24
06:59 06:59 06:59
Intake Total 840 / 840 1370 / 1370
Output Total 400 / 400
Balance 840 / 840 970 / 970
[2024-08-19] MEDS: LIDOCAINE 4% PATCH 2 PATCH TOPICAL (08:33)
[2024-08-19] MEDS: MIRALAX PO ×2 (08:33→08:49)
[2024-08-19] MEDS: SENOKOT-S 1 TABLET PO ×2 (08:33→20:33)
[2024-08-19] MEDS: BenGay-Like 1 APPLIC TOPICAL ×4 (08:34→21:36)
[2024-08-19] MEDS: TOPROL XL 25 MG PO (08:35)
[2024-08-19] MEDS: VITAMIN C 1000 MG PO (08:35)
[2024-08-19] MEDS: ZETIA 10 MG PO (08:35)
[2024-08-19] MEDS: KCL 20 MEQ PO (08:35)
[2024-08-19] MEDS: PACERONE 100 MG PO ×2 (08:35→20:33)
[2024-08-19] MEDS: ELIQUIS 2.5 MG PO ×2 (08:36→20:33)
[2024-08-19] MEDS: VITAMIN B-12 1000 MCG PO (08:36)
[2024-08-19] MEDS: ROXICODONE 5 MG PO ×3 (08:53→21:36)
[2024-08-19] MEDS: TYLENOL PO (15:29)
[2024-08-19] MEDS: ASPIR LOW (ENTERIC COATED) 81 MG PO (20:33)
[2024-08-19] MEDS: REMOVE LIDOCAINE PATCH REMOVE (20:34)
[2024-08-19] MEDS: REMOVE LIDOCAINE PATCH 2 PATCH REMOVE (22:22)
[2024-08-20] VITALS (8 sets, daily range): BP systolic 93–129; BP diastolic 48–68; PULSE 67–71; BMI 22.9
[2024-08-20] MEDS: TYLENOL PO ×2 (05:09)
[2024-08-20] MEDS: SYNTHROID 150 MCG PO (06:07)
[2024-08-20] MEDS: DILAUDID 0.5 MG IV ×3 (06:08→14:38)
[2024-08-20 06:38] LABS: Hematocrit 30.8 % (37.0-47.0); Hemoglobin 11.0 g/dL (12.0-16.0); Mean Corp Hgb Conc. 35.7 g/dL (33.0-37.0); Mean Corpuscular Volume 99.0 fL (81.0-99.0); Platelet Count 321 10^3/uL (130-400); Red Cell Dist. Width 21.2 % (11.5-14.5)
[2024-08-20 07:12] LABS: ALT (SGPT) 16 U/L (0-35); AST (SGOT) 31 U/L (14-36); Albumin 2.0 g/dl (3.5-5.0); Alkaline Phosphatase 74 U/L (38-126); Blood Urea Nitrogen 53 mg/dl (7-17); Calcium 7.8 mg/dl (8.4-10.2); Carbon Dioxide 21 mmol/L (22-30); Chloride 107 mmol/L (98-107); Estimated Creatinine Clearance 24 ml/min; Glucose 102 mg/dl (70-99); Magnesium 1.8 mg/dl (1.6-2.3); Potassium 4.1 mmol/L (3.5-5.1); Sodium 131 mmol/L (135-145); Total Protein 5.0 g/dl (6.3-8.2); eGFR 29.94
[2024-08-20] MEDS: LIDOCAINE 4% PATCH 2 PATCH TOPICAL (08:40)
[2024-08-20] MEDS: TOPROL XL 25 MG PO (08:40)
[2024-08-20] MEDS: MIRALAX 17 GRAMS PO ×2 (08:41→20:21)
[2024-08-20] MEDS: KCL 20 MEQ PO (08:41)
[2024-08-20] MEDS: ALDACTONE 12.5 MG PO (08:41)
[2024-08-20] MEDS: ELIQUIS 2.5 MG PO ×2 (08:41→20:22)
[2024-08-20] MEDS: VITAMIN B-12 1000 MCG PO (08:41)
[2024-08-20] MEDS: PACERONE 100 MG PO ×2 (08:41→20:22)
[2024-08-20] MEDS: LIPITOR 10 MG PO (08:41)
[2024-08-20] MEDS: SENOKOT-S 1 TABLET PO (08:42)
[2024-08-20] MEDS: VITAMIN C 1000 MG PO (08:42)
[2024-08-20] MEDS: ZETIA 10 MG PO (08:42)
[2024-08-20] MEDS: BenGay-Like 1 APPLIC TOPICAL ×3 (08:42→22:43)
[2024-08-20] MEDS: TYLENOL 650 MG PO ×4 (08:42→20:21)
--- NOTE | 2024-08-20 09:35 | W.PN.HOSP.TC ---
Today's Communication/Plan
-
see bold
Assessment / Plan
Assessment / Plan
79F hx pleural effusion HFpEF HTN afib ppm Celiac dz HLD pulm htn here for evaluation syncope with associate clavicle and rib fractures likely d/t fall. Syncope had occurred while taking bowel prep for capsule endoscopy. Patient endorsed feeling
lightheaded/dehydrated prior to event.
#Syncope likely vasovagal (patient was undergoing bowel prep for capsule endoscopy at the time)
Head CT negative
Check daily orthostatic vital signs
#Acute hypoxic respiratory insufficiency
#Left clavicle fracture-sling in place
#Lt 3rd thru 5th rib fractures
#traumatic fractures, likely osteoporosis contributing
Acute hypoxia likely 2/2 poor inspiratory effort d/t pain from rib fractures and atelectasis
Thoracic Lumbar XR appreciated multilevel discogenic degenerative disease, small to mod b/l pleural effusions, acute interstitial/alveolar cardiogenic edema, large dense b/l lower lobe airspace consolidations
Appreciate orthopedic surgery input, recommend conservative management with left arm sling for left clavicle fracture
Currently requiring 3 L of oxygen
Continue pain control, incentive spirometry wean oxygen as tolerated
# Chronic pleural effusions suspected multifactorial from partial hypoalbuminemia, deconditioning, possible malnutrition unclear severity
# Right pleural effusion status post thoracentesis on 05/23/2024 with symptomatic improvement in 1350 cc of fluid removed
# History of recurrent left-sided pleural effusion status post admission to [place] with VATS and pulmonary decortication 01/2024.
#08/16/24 Abd US notes Large Right Pleural Effusion and small to moderate ascites
Status post right thoracentesis on 08/17, draining 1.5 L, cultures negative for growth, path pending
Check chest ultrasound to evaluate for reaccumulation
#Severe constipation
Give Dulcolax suppository, increase MiraLAX to twice a day, increase senna�S to 2 tablets twice a day, add lactulose 20 g at noon
Check abdominal x-ray
# Anemia of chronic disease
Ingested capsule endoscopy prior to coming to hospital, has kit for retrieval when passes. Noted still present in recent thoracic lumbar x-rays
Hemoglobin dipped to 7.8
Status post 1 unit packed red blood cells with appropriate response, hemoglobin now uptrending
Continue to monitor, transfuse as needed
#ANNA
Likely prerenal
Hold torsemide and spironolactone
Relax fluid restriction to 60 ounces
#Possible CHF exacerbation, less likely
Status post 1 dose of Lasix in the ER
Appreciate cardiology input, pacemaker interrogated and functioning normally
Amiodarone increased to twice a day, no additional Lasix recommended
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
#History of Takotsubo CM w/recovered EF (2005)
# Paroxysmal atrial fibrillation
# Prior PVI (2016)
# s/p PFA 08/24/23
-continue [employer] eliquis 2.5 bid
-continue [employer] metoprolol
-continue Amio as above
# Hypothyroidism
-Synthroid continued
-TFT appears to suggest Hypothyroidism uncontrolled, TSH elevated
-pt endorses compliance with synthroid and no recent changes in dose
-repeated TFT show TSH trending down
-cont current synthroid for now, outpt follow up with Endocrinology recommended
#Elevated troponin from nonischemic myocardial injury
#Lung Nodule
# Chronic Mild Hyponatremia
-cont fluid restriction as above
# Celiac disease
gluten free diet
#Moderate portal hypertensive gastropathy
PT/OT appreciated SNF rehab
DVT PPX on Eliquis
Code status - full code
Total time spent to see the patient on the floor, examine the patient, review data and lab results, discuss treatment plan with patient, nursing staff around 51 minutes.
Physical Exam
General: no acute distress appears comfortable
HEENT: NormoCephalic, Moist mucous membranes and Atraumatic
Respiratory: Left basilar crackles
Cardiac: S1/S2 and Regular Rhythm; No Murmur or Rub
GI: Soft, Non Tender, abd distended and Normal Bowel Sounds
Musculoskeletal: No Clubbing, No Cyanosis, Left arm in sling, Bilateral lower extremities edema +1
Skin: No Rash
Neuro: AO x 3 conversant coherent
Psych: Calm
Anticipated Discharge: 24 - 48 hours
Subjective/Interval History
-
Date of Service: August 20, 2024
Patient reports feeling short of breath when her rib pain started getting worse. No fever. She has not had a bowel movement for 5 days. No vomiting.
Objective Data
-
Labs:
Laboratory Results
08/20/24
05:47
WBC 6.2
Hgb 11.0 L
Hct 30.8 L
Plt Count 321
Sodium 131 L
Potassium 4.1
Chloride 107
Carbon Dioxide 21 L
BUN 53 H
Creatinine 1.7 H
Glucose 102 H
Calcium 7.8 L
Total Bilirubin 0.4
AST 31
ALT 16
Alkaline Phosphatase 74
Vital Signs:
Vital Signs
Temp Pulse Resp BP Pulse Ox
98.3 F 78 20 129/68 94
08/20/24 07:32 08/20/24 08:40 08/20/24 07:32 08/20/24 08:40 08/20/24 07:32
I&O
08/19/24 08/20/24 08/21/24
06:59 06:59 06:59
Intake Total 1370 / 1370 840 / 840
Output Total 400 / 400 400 / 400
Balance 970 / 970 440 / 440
[2024-08-20] MEDS: DUPHALAC/CHRONULAC 20 GRAMS PO (12:44)
[2024-08-20] MEDS: ROXICODONE 10 MG PO (13:12)
--- NOTE | 2024-08-20 17:05 | CM ---
Reviewed PT OT with pt which recommended SNF.
PAC data given to patient she said she will discuss with son.
Referral placed for [facility].
Spoke with Susanne Dawson she has a bed today and tomorrow.
Pt not ready for dc to SNF today.
Left arm sling
PLAN To SNf after located
[2024-08-20] MEDS: ROXICODONE 5 MG PO ×2 (17:09→21:13)
[2024-08-20] MEDS: BenGay-Like TOPICAL (17:09)
[2024-08-20] MEDS: ASPIR LOW (ENTERIC COATED) 81 MG PO (20:22)
[2024-08-20] MEDS: REMOVE LIDOCAINE PATCH 2 PATCH REMOVE (20:22)
[2024-08-20] MEDS: SENOKOT-S 2 TABLET PO (20:22)
[2024-08-21] VITALS (9 sets, daily range): BP systolic 91–125; BP diastolic 34–95; PULSE 67–71; BMI 23.1
[2024-08-21] MEDS: TYLENOL PO ×2 (00:16→05:05)
[2024-08-21] MEDS: DILAUDID 0.5 MG IV (01:08)
[2024-08-21] MEDS: SYNTHROID 150 MCG PO (05:32)
[2024-08-21] MEDS: ROXICODONE 10 MG PO ×4 (05:36→22:30)
[2024-08-21 07:25] LABS: Hematocrit 32.6 % (37.0-47.0); Hemoglobin 10.8 g/dL (12.0-16.0); Mean Corp Hgb Conc. 33.1 g/dL (33.0-37.0); Mean Corpuscular Volume 102.5 fL (81.0-99.0); Platelet Count 320 10^3/uL (130-400); Red Cell Dist. Width 20.8 % (11.5-14.5)
--- NOTE | 2024-08-21 07:39 | PTCARENOTE ---
Pt this morning, is still requiring O2 for dyspnea, Pt has a harsh, moist cough and has crackles through lungs bilaterally. made aware.
[2024-08-21 07:46] LABS: Blood Urea Nitrogen 54 mg/dl (7-17); Calcium 7.9 mg/dl (8.4-10.2); Carbon Dioxide 22 mmol/L (22-30); Chloride 106 mmol/L (98-107); Estimated Creatinine Clearance 26 ml/min; Glucose 81 mg/dl (70-99); Potassium 4.4 mmol/L (3.5-5.1); Sodium 132 mmol/L (135-145); eGFR 32.20
[2024-08-21] MEDS: ELIQUIS PO (08:47)
[2024-08-21] MEDS: BenGay-Like TOPICAL ×2 (08:50→12:37)
[2024-08-21] MEDS: KCL 20 MEQ PO (09:14)
[2024-08-21] MEDS: PACERONE 100 MG PO ×2 (09:14→20:24)
[2024-08-21] MEDS: VITAMIN B-12 1000 MCG PO (09:14)
[2024-08-21] MEDS: MIRALAX 17 GRAMS PO ×2 (09:14→20:28)
[2024-08-21] MEDS: VITAMIN C 1000 MG PO (09:14)
[2024-08-21] MEDS: TOPROL XL 25 MG PO (09:15)
[2024-08-21] MEDS: SENOKOT-S 2 TABLET PO ×2 (09:15→20:28)
[2024-08-21] MEDS: LASIX 60 MG IV (09:15)
[2024-08-21] MEDS: TYLENOL 650 MG PO ×5 (09:15→23:41)
[2024-08-21] MEDS: ZETIA 10 MG PO (09:15)
[2024-08-21] MEDS: LIDOCAINE 4% PATCH 2 PATCH TOPICAL (09:16)
[2024-08-21 09:26] LABS: LDH 233 U/L (120-246); Total Protein 5.3 g/dl (6.3-8.2)
[2024-08-21] MEDS: HYDROPHOR 1 APPLIC TOPICAL ×2 (09:31→20:26)
--- NOTE | 2024-08-21 09:31 | PTCARENOTE ---
Pt has a bloody nose, aware, Held eliquis, gave 60mg of lasix.
--- NOTE | 2024-08-21 09:51 | PTCARENOTE ---
Pt left for IR with transport.
--- NOTE | 2024-08-21 10:47 | CM ---
ROSITA reviewed chart, spoke with admissions at [facility], patient not stable for discharge today, will call tomorrow for bed availability. [facility] able to accept pending bed availability. [facility] requesting additional PT notes when patient able, will
have bed availability later in the week. ROSITA will continue to follow for all discharge planning needs.
Plan; SNF when stable, call [facility] day of discharge, [facility] day of discharge, [facility] can accept pending additional PT notes
[2024-08-21] MEDS: DUPHALAC/CHRONULAC 20 GRAMS PO (11:20)
--- NOTE | 2024-08-21 14:16 | CON.PUL ---
Consultation
Consultation Request
Date/Time Consultation Requested: 08/21/2024
Date/Time Consultation Performed: 08/21/2024
Requesting Provider: Do Chadd
Performing Provider: Candace Mojica
Reason for Consultation: Pleural effusion
Medical History
-
Chief Complaint: Fall, shouler pain
History of Present Illness:
Patient is not 79-year-old female who was admitted to the hospital about a week ago. Patient had an endoscopy procedure performed following which she had a syncopal episode and an unwitnessed fall. Patient was brought to the emergency room and
further imaging was suggestive of a displaced fracture of the lateral clavicle as well as minimal degenerative changes about the shoulder. Patient also noted to have lateral left 3rd through 5th rib fracture.
Patient was noted to have a large right-sided pleural effusion and had a thoracentesis performed on 08/17. Fluid study was suggestive of transudate. Patient has been on diuretics since. Over next few days patient had reaccumulation and on 08/21,
she had another thoracentesis, right side performed with more than 1 L of transudative fluid removed. Pulmonary consultation was requested for further input. Patient had similar recurrent challenging left-sided pleural effusions in the past which
were managed with an indwelling pleural catheter placement in 2023, subsequently she had a VATS procedure performed and in indwelling pleural catheter was removed.
In view of recurrent right-sided pleural effusion, pulmonary consultation was requested for further input.
Past Medical History
Past Medical History: Reports Other
Additional Past Medical History:
Aortic valve sclerosis
Mitral regurgitation
Pleural effusion
CHF
Hypertension
A-fib
Osteopenia
Cataracts
Pacemaker
Coronary artery disease
Celiac disease
Lung nodule
Hyperlipidemia
Colitis
Pulmonary hypertension
Past Surgical History: Reports Other
Additional Past Surgical History:
Cardioversion
Left inner foot vein removal
Cataract surgery
Pacemaker placement
Thoracentesis
Social History
Tobacco: Former Smoker
Alcohol: Occasional
Drug: None
Living: With Family
Family History
Family History: Not pertinent
Allergies / Home Medications
Allergies reflects when Allergies were last updated in [facility].
Allergies / Home Medications
Allergies
Allergy/AdvReac Type Severity Reaction Status Date / Time
Antihistamines Allergy Rash Verified 08/09/24 09:21
Cephalosporins Allergy Rash Verified 08/09/24 09:21
gluten Allergy Intestinal Verified 08/15/24 21:13
Issues
hydrochlorothiazide Allergy Rash Verified 08/09/24 09:21
penicillin G Allergy Rash Verified 08/09/24 09:21
penicillin V Allergy Rash Verified 08/09/24 09:21
Penicillins Allergy Rash Verified 08/09/24 09:21
Home Medications
�Medication �Instructions �Recorded �Confirmed �Last Taken �Type
aspirin 81 mg tablet,delayed 81 mg PO HS blood thinner 05/17/23 08/15/24 08/08/24 History
release
apixaban 2.5 mg tablet (Eliquis) 2.5 mg PO BID afib 07/19/23 08/15/24 08/15/24 History
ezetimibe 10 mg tablet (Zetia) 10 mg PO DAILY cholesterol 07/19/23 08/15/24 08/08/24 History
potassium chloride 20 mEq 20 meq PO DAILY Supplement 07/19/23 08/15/24 08/08/24 History
tablet,extended release(part/cryst)
amiodarone 200 mg tablet 100 mg PO DAILY Arrhythmia 05/10/24 08/15/24 08/15/24 History
cholecalciferol (vitamin D3) 50 50 mcg PO DAILY Supplement 05/10/24 08/15/24 08/08/24 History
mcg (2,000 unit) tablet (Vitamin
D3)
levothyroxine 50 mcg tablet 150 mcg PO DAILY Thyroid 05/10/24 08/15/24 08/08/24 History
metoprolol succinate 25 mg 25 mg PO DAILY Blood Pressure 05/10/24 08/15/24 08/15/24 History
tablet,extended release 24 hr
multivitamin-ferrous 1 tab PO DAILY Supplement 05/10/24 08/15/24 08/08/24 History
fumarate-folic acid 18 mg-400 mcg
tablet (Centrum)
sour monroe extract 1,000 mg 800 mg PO DAILY Supplement 05/10/24 08/15/24 07/15/24 History
capsule (Tart Monroe Extract)
spironolactone 25 mg tablet 12.5 mg PO MOWEFR Fluid 05/10/24 08/15/24 08/08/24 History
retention/Swelling
torsemide 20 mg tablet 20 mg PO DAILY Fluid 05/10/24 08/15/24 08/08/24 History
Retention/Swelling
vitamin B complex 1 tab PO DAILY Supplement 05/10/24 08/15/24 08/08/24 History
calcium carbonate (Calcium 600) 600 mg PO DAILY Supplement ##0 05/22/24 08/15/24 08/08/24 History
ascorbic acid (vitamin C) 1,000 mg 1,000 mg PO DAILY 08/15/24 08/15/24 Unknown History
tablet (Vitamin C)
diphenhydramine HCl 25 mg chewable 12.5 mg PO HSPRN PRN sleep 08/15/24 08/15/24 Unknown History
tablet (Allergy Relief
(diphenhydramine))
pitavastatin calcium 1 mg tablet 1 mg PO MOWEFR 08/15/24 08/15/24 Unknown History
(Livalo)
Review of Systems
-
Hematologic/Lymphatic: Other (All 14 systems reviewed and negative except as stated above in the history of present illness.)
Vitals / Labs / Diagnostic Testing
Vital Signs
Temp Pulse Resp BP Pulse Ox
98.2 F 72 16 119/59 94
08/21/24 11:55 08/21/24 11:55 08/21/24 11:55 08/21/24 11:55 08/21/24 11:55
Lab Data
08/21/24 06:16
08/21/24 06:16
Microbiology
08/17/24 11:22 Pleural Fluid Body Fluid Culture - Final
No Growth After 72 Hours
08/17/24 11:22 Pleural Fluid Gram Stain - Final
08/19/24 01:05 Urine Urine Culture - Final
No Significant Growth
Diagnostic Testing:
Physical Exam
-
HEENT: Normocephalic and Other (Cachectic, bitemporal muscle wasting noted.)
Cardiovascular: S1/S2, Murmur and Peripheral Edema (1+ Bilaterally )
Respiratory: Rales (Few inspiratory rales on the right side, posteriorly basal region)
GI: Distended
Neurology: Awake and Alert
Skin: Warm
General: Comfortable
Assessment
-
#1. Recurrent right-sided pleural effusion, chronic (transudative)
- Fluid analysis is suggestive of a transudate with very low pleural fluid protein and LDH
- Etiology appears to be underlying congestive heart failure as well as hypoalbuminemia. Worsening pulmonary hypertension can also contribute towards pleural effusions. Recommend checking ultrasound abdomen to see if patient has any hepatic
pathology/cirrhotic changes, particularly with history of portal gastropathy noted on EGD in 05/2024. ?Hepatic hydrothorax.
- Right-sided pleural effusion has been stable for a long time with recent exacerbation requiring thoracentesis x 2 during this hospitalization
- Thoracentesis 08/21, 1350 cc of clear yellow pleural fluid removed, thoracentesis 08/17, 1500 cc of straw-colored pleural fluid evacuated (Cytology negative)
- Continue IV diuresis and spironolactone as tolerated
- Will favor conservative management for now, low-salt diet, and diuresis as tolerated and as needed thoracentesis considering patient still appears to be volume overloaded.
- Once patient is euvolemic and recovers from current complications, if she continues to need recurrent thoracentesis, we can reconsider indwelling pleural catheter placement.
- Consider palliative care consult. Patient is cachectic appearing, appears malnourished, has worsening pulmonary hypertension and at risk of additional complications when subjected to invasive procedures.
#2. History of recurrent left-sided pleural effusion, s/p multiple thoracentesis
- S/p indwelling pleural catheter placement in 2023, subsequently removed after she had VATS decortication on the left side.
- Fluid analysis has been mostly transudative with negative cytology.
#3. Pulmonary hypertension.
- Suspect group II with underlying heart failure with preserved ejection fraction
- Recent echo was in the setting of large pleural effusion, volume overload which could have confounded the results
- Continue to optimize volume status, O2 support to keep saturations above 90%
- Cardiology service on case
- Poor prognosis in the setting of worsening pulmonary hypertension, estimated pulmonary artery systolic pressure 70 now compared to 45-50 in the past.
#4. Left rib fracture, 3rd through 5th.
- Traumatic, after a fall, associated with left clavicle fracture as well.
- Continue incentive spirometry, pain control, activity as tolerated.
#5. Acute hypoxic respiratory failure.
- This appears to be multifactorial in the setting of worsening pleural effusion, pulmonary congestion due to CHF, pulmonary hypertension as well as fall with left multiple rib fracture.
- Continue to optimize volume, IV diuresis, O2 support as needed to keep saturations above 90%. Incentive spirometry, pain control.
- Patient is chronically anticoagulated with Eliquis, making pulmonary embolism less likely.
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
Celiac Disease 1975
Takotsobu cardiomyopathy-recovered EF
s/p CARDIOGENIC SHOCK 04/08/05 EF 20% IMPROVED TO 50 % 04/09/[address]
Former smoker >20 pack years, quit 30 years ago
Hiatal hernia
Lyme disease
Carotid Disease
Hypertension
PANCREATITIS 2005
Irritable bowel disease
CHF
SVT/Paroxysmal atrial fibrillation s/p Cardioversion 06/18/2016
Endometrial polyps s/p D & C, polypectomy
HYPERLIPIDEMIA - MIXED
Fracture right foot/ankle in Feb 2018
Lymphocytic Colitis
Ambulatory dysfunction/Balance issues
Inguinal herniographies xs 2 02/25/2011
Vein removal in [place]. inner foot 2020
Bilateral cataract surgeries 2020
History of pancreatitis 2005
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
Total time spent on this consultation/encounter __85__ minutes which includes review of history, physical exam, medications, laboratory data, personal review of imaging, extensive review of outpatient records, discussion with care team and
respiratory therapy.
Data:
ECHO 08/2024: Left ventricle is small in size. Normal left ventricular systolic function.
Left ventricular ejection fraction is 60-65% by volumetric assessment. Normal
regional wall motion. Mild concentric left ventricular hypertrophy. Stage II
diastolic dysfunction suggestive of abnormal relaxation and increased filling
pressures.
Normal right ventricular size and function. Pacer wire seen in right ventricle.
Mild mitral regurgitation.
Aortic sclerosis without stenosis.
Severe tricuspid regurgitation. Estimated pulmonary artery pressure of 70 mmHg
assuming a right atrial pressure of 3 mmHg.
Small to moderate pericardial effusion without evidence of hemodynamic
compromise. Pleural effusion present.
Compared to prior study of 11/25/2023:
Tricuspid regurgitation has worsened from moderate to severe
Pulmonary artery systolic pressure previously estimated at 45-50 mmHg and is
now 70 mmHg
Pericardial effusion is larger, previously small in size
--- NOTE | 2024-08-21 14:27 | W.PN.CARDCBS ---
Addendum entered and electronically signed by Mikhail Clemente DO 08/21/24 17:08:
I saw and examined the patient.
The Street Car Mechanic's note was reviewed and I agree with the note.
Comment:
Plan:
Received diuretic today. Would continue. Will reassess response and dose tomorrow accordingly.
Recent echo with preserved EF, no need to repeat at this time.
Need to monitor bps with diuresis as she has had hypotension in the past.
Repeat thoracentesis but had been off diuretics.
Pulm to eval regarding recurrent effusion.
Discussed with primary service.
Original Note:
Today's Communication / Plan
-
-resume diuretic
-palliative care previously consulted in outpt setting
Impression / Plan
-
PCP: Stella Sutherland PA-C
After School Counselor: Dr. Kiera Diaz
Impression:
Admitted with fall, clavicle fracture and possible acute HF 08/15/24
Syncope
Fall and left clavicle fracture
Acute on chronic HFpEF
Recurrent pleural effusion
s/p Left Asept pleural catheter placement 11/29/23, removed after admission to [place] with VATS and pulmonary decortication 01/2024
Small to moderate B/L pleural effusions by CXR 08/15/2024
R thoracentesis 08/17/2024 for 1500 cc-no growth on culture, fluid studies suggestive of transudate
R thoracentesis 08/21/2024 1350cc clear yellow
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
Hyponatremia
Paroxysmal atrial fibrillation
Prior PVI (2016)
s/p PFA 08/24/23
Tikosyn stopped during [facility] rehab stay 02/2024 and now on chronic amiodarone
Chronic anticoagulation on Eliquis
Takotsubo CM w/recovered EF (2005)
Negative workup for cardiac amyloid
HLD
HTN
MR
Renal nephrosis
Lung Nodule (2021, stable)
Anemia
celiac dz
Echo 05/18/2023: EF 69%, stage II diastolic dysfunction. Moderately dilated right atrium. Mild to moderate MR. Mild TR. PAP 36 mmHg. Small pericardial effusion
Echo 11/25/2023: EF 55-60%, global longitudinal strain is -14.2, stage III diastolic dysfunction, mild MR, dilated left atrium, aortic sclerosis, normal RV, pulmonary artery systolic pressure 45-50 mmHg
Echo 08/16/2024: EF 60-65%, mild cLVH, stage II diastolic dysfunction, mild MR, severe TR, estimated PAP 70 mmHg, small to moderate pericardial effusion w/o evidence of hemodynamic compromise
Plan:
-08/21/2024 -asked to re-evaluate patient due to recurrent right pleural effusion, concern for worsening heart failure.
She is s/p repeat right thoracentesis today for 1350 cc clear yellow fluid. Patient previously had right thoracentesis on 08/17/2024 for 1500 cc straw-colored pleuritic fluid.
-pt initially presented 08/15/2024 after fall/syncope in the setting of prepping for capsule endoscopy. Admitted with clavicle fracture. Also concern for acute HF.
-ProBNP 2340 on arrival, given a single dose of IV lasix in ER, however creat bumped from 1.0 to 1.9 08/17. Continued usual dose of torsemide PO 20mg daily 08/16-08/18/2024. Diuretics held 08/19-08/20. Today 08/21 rec'd Lasix 60 mg IV x 1
-appears volume overloaded on exam with abdominal distention and mild lower extremity edema.
-Since she already received 60 of IV Lasix today and is symptomatically improved, would hold off on additional diuretic today. Currently ordered for Lasix 60 mg IV daily. When resume outpatient torsemide, consider increase dose. May need to
accept higher baseline creatinine.
-Creat trending down, 1.6 08/21. Baseline creatinine appears 1-1.1 in outpt setting.
-Echo 08/16/2024 noted preserved EF with sev TR and small to moderate pericardial effusion, PAP 70 mmHg, compared to last echo 11/2023, had mod TR and PASP 45-50, sm pericard effusion
-Continue Toprol and Spironolactone. Not on NILAY/ARB/ARNI due to hypotension. No SGLT2 inhibitor due to h/o UTI.
-Spironolactone dose 12.5 mg Tuesday, Tuesday, Tuesday. This is her outpatient dose.
-Previous cardiac amyloid workup negative.
-re'cd 2 uPRBCs in 2wks DENSITOMETRIST. Hgb 8.7 08/17, down to 7.8 08/18-rec'd 1 uPRBC 08/18/2024, Hgb has remained stable since prbcs 08/18/2024, at 10.8 08/21
-Also continues w/ hypoalbuminemia. Albumin ranging 2-2.2, Given albumin 08/17.
-Known h/o paroxysmal atrial fibrillation. No arrhythmias this admission. Afib burden was increased on recent device check, so amiodarone increased to 100mg BID.
-Continue Eliquis 2.5mg BID for now. Follow closely w/ anemia.
-Follow up arranged at [facility]
- Primary manager it security, Kiera Diaz MD, previously arranged palliative care consult which is in progress
HPI: Patient came to [facility] ER yesterday after fall and is now being mated with syncope, clavicle fracture and possible HFpEF with consultation to cardiology. Patient was seen in the office on 07/17/2024 and her proBNP was felt to be acceptable
although her weight was up to 136 lbs with her previous weight being 133 lbs, there were also moderate bilateral pleural effusions. Usual dose of torsemide 20 mg daily was continued and the patient was agreeable to referral for palliative care
assessment. eCW tasks was reviewed by me and patient was given 1 unit PRBCs on 08/02/2024 for Hgb of 7.7 and the Hgb only improved up to 8.2 so a second unit was given on 08/06/24. Remote device check 08/08/2024 had a 7-hour long atrial flutter episode
and patient was already on Eliquis, no other changes, but later that day patient called with weight gain and was told to take additional torsemide 20 mg for a total of 40 mg daily on 08/08/2024 and 08/09/2024 and although she lost 4 lbs she had ongoing
GILLIAM and fatigue. Then patient was preparing for a scheduled capsule endoscopy for her celiac disease by taking Miralax and after swallowing the capsule she felt disoriented, lost her sense of balance and had a fall. Patient was brought to [facility] ER
and admitted for syncope, clavicle fracture and possible acute on chronic HFpEF. Patient was given Lasix 40 mg IV x 1 in the ER. Her Cre on arrival was 1.0 and today is up to 1.4.
Progress Note - After School Counselor
Subjective
Date of Service: August 21, 2024
worsening SOB/hypoxia overnight,ultrasound today with reaccumulation of right pleural fluid, now s/p R thoracentesis for 1350 cc
SOB currently improved. remains on 2 L of O2 , sat 94%
Torsemide temporarily held due to concern for ANNA, but resumed Lasix 60 mg IV today
Objective
Labs:
08/21/24 06:16
08/21/24 06:16
Labs
Hgb 10.8 g/dL (12.0-16.0) L 08/21/24 06:16
Hct 32.6 % (37.0-47.0) L 08/21/24 06:16
Plt Count 320 10^3/uL (130-400) 08/21/24 06:16
Sodium 132 mmol/L (135-145) L 08/21/24 06:16
Potassium 4.4 mmol/L (3.5-5.1) 08/21/24 06:16
BUN 54 mg/dl (7-17) H 08/21/24 06:16
Creatinine 1.6 mg/dL (0.6-1.0) H 08/21/24 06:16
Glucose 81 mg/dl (70-99) 08/21/24 06:16
Troponins
08/18/24 08/18/24 08/19/24
16:53 22:04 04:31
Troponin I 0.060 H* D 0.071 H* 0.054 H*
Vital Signs and I&O:
Vital Signs
Temp Pulse Resp BP Pulse Ox
98.2 F 72 16 119/59 94
08/21/24 11:55 08/21/24 11:55 08/21/24 11:55 08/21/24 11:55 08/21/24 11:55
Vital Signs
Temp Pulse Resp BP Pulse Ox
98.2 F 72 16 119/59 94
08/21/24 11:55 08/21/24 11:55 08/21/24 11:55 08/21/24 11:55 08/21/24 11:55
Intake & Output
08/19/24 08/20/24 08/21/24 08/22/24
06:59 06:59 06:59 06:59
Intake Total 1370 / 1370 840 / 840 920 / 920
Output Total 400 / 400 400 / 400
Balance 970 / 970 440 / 440 920 / 920
Physical Exam
Physical Exam
GEN: No distress, awake, Ox3, frail, cachetic
HEENT: supple, anicteric, mmm
LUNGS: CTA, no wheezes/rales
CV: Reg, S1/S2, 1/6 syst LSB, no murmur
ABD: soft, BS+, abd sl distended
EXT: trace B/L edema
NEURO: Gross non-focal
SKIN: no rash
--- NOTE | 2024-08-21 14:39 | PN.CDI ---
CDI
- -
CDI:
Physician Documentation Request
Admit Date: 08/15/24 18:37
Dear Doctor Do,
Patient presented to ED with complaints of being shortness of breath when active.
H&P states 'possible CHF exacerbation received a dose of Lasix in ER , initiated on Torsemide, Spironolactone continued. Strict I&O, daily weight ,fluid restriction'
BNP 2340
08/17 hospitalist note states 'Possible CHF exacerbation, less likely'
08/17 cardiology signed off however continued to refer to heart failure as acute on chronic HFpEF.
Please clarify the following:
____ - Acute on chronic HFpEF was present on admission
____ - Acute on chronic HFpEF was ruled out
____ - Other
Use of terms such as suspected, likely, concern for, or probable (associated with a specific diagnosis that is being evaluated, monitored, or treated as if it exists) are acceptable and can be coded in the inpatient setting, when documented at the
time of discharge.
Thank you,
Leonor Pugh RN, BSN
CDI Specialist
tiger text
Please use your independent medical judgment in providing your response.
--- NOTE | 2024-08-21 14:49 | PTCARENOTE ---
Milk & Molasses enema started.
--- NOTE | 2024-08-21 15:19 | W.PN.HOSP.TC ---
Addendum entered and electronically signed by Chadd Byrd MD 08/21/24 15:39:
Acute on chronic HFpEF was present on admission
Original Note:
Today's Communication/Plan
-
IV Lasix
Consult pulmonology
Ask cardiology to reevaluate
Enema
Assessment / Plan
Assessment / Plan
79F hx pleural effusion HFpEF HTN afib ppm Celiac dz HLD pulm htn here for evaluation syncope with associate clavicle and rib fractures likely d/t fall. Syncope had occurred while taking bowel prep for capsule endoscopy. Patient endorsed feeling
lightheaded/dehydrated prior to event.
#Syncope likely vasovagal (patient was undergoing bowel prep for capsule endoscopy at the time)
Head CT negative
Check daily orthostatic vital signs
Patient has not been able to stand for standing blood pressure
#Acute hypoxic respiratory insufficiency
#Left clavicle fracture-sling in place
#Lt 3rd thru 5th rib fractures
#traumatic fractures, likely osteoporosis contributing
Acute hypoxia multifactorial from poor inspiratory effort from rib fractures, chronic right pleural effusion, and abdominal distention from constipation
Thoracic Lumbar XR appreciated multilevel discogenic degenerative disease, small to mod b/l pleural effusions, acute interstitial/alveolar cardiogenic edema, large dense b/l lower lobe airspace consolidations
Appreciate orthopedic surgery input, recommend conservative management with left arm sling for left clavicle fracture
Currently requiring 2 L of oxygen, wean as tolerated. She does not wear oxygen at home.
Continue pain control, incentive spirometry
# Chronic pleural effusions suspected multifactorial from partial hypoalbuminemia, deconditioning, possible malnutrition unclear severity
# Right pleural effusion status post thoracentesis on 05/23/2024 with symptomatic improvement in 1350 cc of fluid removed
# History of recurrent left-sided pleural effusion status post admission to [place] with VATS and pulmonary decortication 01/2024.
#08/16/24 Abd US notes Large Right Pleural Effusion and small to moderate ascites
Status post right thoracentesis on 08/17, draining 1.5 L, cultures negative for growth, path negative for malignancy, shows inflammation
Status post right thoracentesis 08/19, draining 1.35 L
Consult pulmonology for consideration of VATS
# Acute on chronic heart failure with preserved ejection fraction
Status post 1 dose of Lasix in the ER
Start Lasix 60 mg IV daily, asked cardiology to reevaluate
#Severe constipation
Continue aggressive bowel regimen, give enema
# Anemia of chronic disease
Ingested capsule endoscopy prior to coming to hospital, has kit for retrieval when passes. Noted still present in recent thoracic lumbar x-rays
Hemoglobin dipped to 7.8
Status post 1 unit packed red blood cells with appropriate response, hemoglobin now uptrending
Continue to monitor, transfuse as needed
#ANNA
Suspect cardiorenal syndrome
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
#History of Takotsubo CM w/recovered EF (2005)
# Paroxysmal atrial fibrillation
# Prior PVI (2016)
# s/p PFA 08/24/23
-continue MILK ROUTE SUPERVISOR eliquis 2.5 bid
-continue MILK ROUTE SUPERVISOR metoprolol
-cardiology increased amiodarone to 100 mg twice a day
# Hypothyroidism
-Synthroid continued
-TFT appears to suggest Hypothyroidism uncontrolled, TSH elevated
-pt endorses compliance with synthroid and no recent changes in dose
-repeated TFT show TSH trending down
-cont current synthroid for now, outpt follow up with Endocrinology recommended
#Elevated troponin from nonischemic myocardial injury
#Lung Nodule
# Chronic Mild Hyponatremia
-cont fluid restriction as above
# Celiac disease
gluten free diet
#Moderate portal hypertensive gastropathy
PT/OT appreciated SNF rehab
DVT PPX on Eliquis
Code status - full code
Updated son on phone 08/21
Total time spent to see the patient on the floor, examine the patient, review data and lab results, discuss treatment plan with patient, nursing staff around 52 minutes.
Physical Exam
General: no acute distress appears comfortable
HEENT: NormoCephalic, Moist mucous membranes and Atraumatic
Respiratory: Bibasilar crackles
Cardiac: S1/S2 and Regular Rhythm; No Murmur or Rub
GI: Soft, Non Tender, abd distended and Normal Bowel Sounds
Musculoskeletal: No Clubbing, No Cyanosis, Left arm in sling, Bilateral lower extremities edema +1
Skin: No Rash
Neuro: AO x 3 conversant coherent
Psych: Calm
Anticipated Discharge: 24 - 48 hours
Subjective/Interval History
-
Date of Service: August 21, 2024
Patient reports shortness of breath improved after her thoracentesis. She continues to have left-sided rib pain, and shortness of breath. No fever, no vomiting. States last bowel movement was Tuesday, 08/15.
Objective Data
-
Labs:
Laboratory Results
08/21/24
06:16
WBC 7.7
Hgb 10.8 L
Hct 32.6 L
Plt Count 320
Sodium 132 L
Potassium 4.4
Chloride 106
Carbon Dioxide 22
BUN 54 H
Creatinine 1.6 H
Glucose 81
Calcium 7.9 L
Vital Signs:
Vital Signs
Temp Pulse Resp BP Pulse Ox
98.2 F 72 16 119/59 94
08/21/24 11:55 08/21/24 11:55 08/21/24 11:55 08/21/24 11:55 08/21/24 11:55
I&O
08/20/24 08/21/24 08/22/24
06:59 06:59 06:59
Intake Total 840 / 840 920 / 920
Output Total 400 / 400
Balance 440 / 440 920 / 920
[2024-08-21] MEDS: BenGay-Like 1 APPLIC TOPICAL ×2 (17:46→22:20)
--- NOTE | 2024-08-21 19:17 | PTCARENOTE ---
Pt. was brought food from home for lunch and dinner and did not order food from the cafeteria.
[2024-08-21] MEDS: ELIQUIS 2.5 MG PO (20:22)
[2024-08-21] MEDS: REMOVE LIDOCAINE PATCH 2 PATCH REMOVE (20:24)
[2024-08-21] MEDS: ASPIR LOW (ENTERIC COATED) 81 MG PO (20:25)
[2024-08-22] VITALS (9 sets, daily range): BP systolic 102–128; BP diastolic 54–78; PULSE 78; O2SAT 94; BMI 22.2
[2024-08-22] MEDS: ROBITUSSIN 200 MG PO ×2 (00:10→21:05)
--- NOTE | 2024-08-22 04:21 | DOWNTIME ---
Addendum entered by Alexsandra Aparicio RN 08/22/24 14:12:
Correction: Downtime was 08/22/2024 from 0100 to 08/22/2024 at 0415
Original Note:
There was a [employer] Client Generation Manager Downtime on 08/21/2024 from 0100 to 08/22/2024 at 0415. Downtime documentation of patient's care, including medication administrations, has been reconciled in the electronic record per guidelines. Refer to the
patient's paper chart under the miscellaneous tab to see printed paper medication records and downtime forms.
[2024-08-22] MEDS: TYLENOL 650 MG PO ×5 (05:19→20:56)
[2024-08-22] MEDS: SYNTHROID 150 MCG PO (05:19)
--- NOTE | 2024-08-22 05:25 | PTCARENOTE ---
monitoring coordinator reading afib, EKG done confirming afib. BP 109/78, HR 90, asymptomatic. STEAMTABLE WORKER made aware. Plan of care ongoing.
[2024-08-22 08:19] LABS: Hematocrit 32.2 % (37.0-47.0); Hemoglobin 10.7 g/dL (12.0-16.0); Mean Corp Hgb Conc. 33.2 g/dL (33.0-37.0); Mean Corpuscular Volume 101.3 fL (81.0-99.0); Platelet Count 318 10^3/uL (130-400); Red Cell Dist. Width 20.5 % (11.5-14.5)
[2024-08-22] MEDS: BenGay-Like 1 APPLIC TOPICAL ×4 (08:32→21:00)
[2024-08-22] MEDS: LIDOCAINE 4% PATCH 2 PATCH TOPICAL (08:33)
[2024-08-22] MEDS: LASIX 60 MG IV (08:33)
[2024-08-22] MEDS: PACERONE 100 MG PO ×2 (08:34→20:57)
[2024-08-22] MEDS: TOPROL XL 25 MG PO (08:34)
[2024-08-22] MEDS: ZETIA 10 MG PO (08:34)
[2024-08-22] MEDS: VITAMIN C 1000 MG PO (08:35)
[2024-08-22] MEDS: HYDROPHOR 1 APPLIC TOPICAL ×2 (08:35→20:53)
[2024-08-22] MEDS: KCL 20 MEQ PO (08:35)
[2024-08-22] MEDS: VITAMIN B-12 1000 MCG PO (08:35)
[2024-08-22] MEDS: SENOKOT-S PO ×2 (08:35→20:44)
[2024-08-22] MEDS: ELIQUIS 2.5 MG PO ×2 (08:35→20:53)
[2024-08-22] MEDS: MIRALAX PO ×2 (08:36→20:44)
[2024-08-22] MEDS: LIPITOR 10 MG PO (08:37)
[2024-08-22 08:39] LABS: Blood Urea Nitrogen 56 mg/dl (7-17); Calcium 7.8 mg/dl (8.4-10.2); Carbon Dioxide 22 mmol/L (22-30); Chloride 107 mmol/L (98-107); Estimated Creatinine Clearance 24 ml/min; Glucose 93 mg/dl (70-99); Potassium 4.2 mmol/L (3.5-5.1); Sodium 134 mmol/L (135-145); eGFR 29.94
--- NOTE | 2024-08-22 09:01 | W.PN.CARDCBS ---
Addendum entered and electronically signed by Sukhdev Renner MD 08/22/24 13:16:
I saw and examined the patient.
The Substation Technician's note was reviewed and I agree with the note.
Comment: Briefly, 79-year-old woman past medical history of heart failure with preserved ejection fraction, hypoalbuminemia, recurrent pleural effusion status post Pleurx and subsequent VATS, persistent atrial fibrillation status post PVI and
permanent pacemaker who presents in acute on chronic heart failure
Likely a component of hypoalbuminemia contributing as well with her most recent albumin of 2.0
Treated with IV Lasix and her creatinine candice from 1.0 up to 1.9
Further diuretics were held at that point
Unfortunately she is above her dry weight and still requiring supplemental oxygen
Will continue gentle diuresis with Lasix 60 mg once daily and monitor renal function closely
Suspect we will need to tolerate some degree of renal insufficiency to improve her respiratory status - Wean oxygen as able
Rest per Radhika Salmeron
Original Note:
Today's Communication / Plan
-
Cont Lasix 60 mg IV daily
Recurrent pleural effusion, Pulm consulted, likely multifactorial with CHF, hypoalbuminemia
Impression / Plan
-
PCP: Stella Sutherland PA-C
Sanitation Officer: Dr. Kiera Diaz
Impression:
Admitted with fall, clavicle fracture and possible acute HF 08/15/24
Syncope
Fall and left clavicle fracture
Acute on chronic HFpEF
Recurrent pleural effusion
s/p Left Asept pleural catheter placement 11/29/23, removed after admission to [place] with VATS and pulmonary decortication 01/2024
Small to moderate B/L pleural effusions by CXR 08/15/2024
R thoracentesis 08/17/2024 for 1500 cc-no growth on culture, fluid studies suggestive of transudate
R thoracentesis 08/21/2024 1350cc clear yellow
ANNA
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
Hyponatremia
Paroxysmal atrial fibrillation
Prior PVI (2016)
s/p PFA 08/24/23
Tikosyn stopped during [facility] rehab stay 02/2024 and now on chronic amiodarone
Chronic anticoagulation on Eliquis
Takotsubo CM w/recovered EF (2005)
Negative workup for cardiac amyloid
HLD
HTN
MR
Renal nephrosis
Lung Nodule (2021, stable)
Anemia
celiac dz
Echo 05/18/2023: EF 69%, stage II diastolic dysfunction. Moderately dilated right atrium. Mild to moderate MR. Mild TR. PAP 36 mmHg. Small pericardial effusion
Echo 11/25/2023: EF 55-60%, global longitudinal strain is -14.2, stage III diastolic dysfunction, mild MR, dilated left atrium, aortic sclerosis, normal RV, pulmonary artery systolic pressure 45-50 mmHg
Echo 08/16/2024: EF 60-65%, mild cLVH, stage II diastolic dysfunction, mild MR, severe TR, estimated PAP 70 mmHg, small to moderate pericardial effusion w/o evidence of hemodynamic compromise
Plan:
-Weight is down 5 lbs overnight after Lasix 60 mg IV daily restarted 08/21/24. Patient was diuresed earlier this admission and then held for ANNA and outpatient dose of torsemide 20 mg PO daily was restarted, but CXR on 08/21/24 suggested recurrent
right pleural effusion and cardiology reconsulted, Lasix IV restarted and patient had a right-sided thoracentesis for 1.35 L.
-Previous dry weight 131 lbs at last d/c 05/26/24. Patient weighs 137 lbs on 08/22/24.
-Patient with ANNA this admission, Cre as high as 1.9 on 08/17/24 after initial attempts at IV diuresis on admission. Cre was 1.0 on admission, baseline Cre previously 1.0 to 1.2.
-Outpatient dose of Toprol XL 25 mg daily has been continued
-Patient is not chronically on NILAY/ARB/ARNI due to hypotension
-Outpatient dose of spironolactone 12.5 mg MWF on hold due to ANNA
-Patient is not chronically on an SGLT2 inhibitor due to history of UTI
-EF stable by echo this admission
-Previous cardiac amyloid workup was negative
-Syncope on admission in the setting of frequent defecation and orthostasis, no history of syncope. Patient has not previously been orthostatic nor has she required midodrine in the past.
-Patient with known chronic anemia and recent outpatient transfusions have been arranged by GI. Known hypoalbuminemia, albumin given x3 this admission.
-Patient with known paroxysmal A-fib and appears a paced on telemetry. Device check in the office on 05/22/2024 showed an A-fib burden of 1%, but by most recent device check in the ER on 08/15/2024 atrial arrhythmia burden has increased to 53%.
-Outpatient dose of amiodarone increased to 100 mg BID this admission. Another option would be possible AVJ as patient has PPM in place, but this does not appear to be acute and can be considered for future management options.
-Continue Eliquis 2.5 mg BID (age 79, Cre 1.4, wt 63.6 kg) as weight is generally less than 60 kg
HPI: Patient came to [facility] ER yesterday after fall and is now being mated with syncope, clavicle fracture and possible HFpEF with consultation to cardiology. Patient was seen in the office on 07/17/2024 and her proBNP was felt to be acceptable
although her weight was up to 136 lbs with her previous weight being 133 lbs, there were also moderate bilateral pleural effusions. Usual dose of torsemide 20 mg daily was continued and the patient was agreeable to referral for palliative care
assessment. eCW tasks was reviewed by me and patient was given 1 unit PRBCs on 08/02/2024 for Hgb of 7.7 and the Hgb only improved up to 8.2 so a second unit was given on 08/06/24. Remote device check 08/08/2024 had a 7-hour long atrial flutter episode
and patient was already on Eliquis, no other changes, but later that day patient called with weight gain and was told to take additional torsemide 20 mg for a total of 40 mg daily on 08/08/2024 and 08/09/2024 and although she lost 4 lbs she had ongoing
GILLIAM and fatigue. Then patient was preparing for a scheduled capsule endoscopy for her celiac disease by taking Miralax and after swallowing the capsule she felt disoriented, lost her sense of balance and had a fall. Patient was brought to [facility] ER
and admitted for syncope, clavicle fracture and possible acute on chronic HFpEF. Patient was given Lasix 40 mg IV x 1 in the ER. Her Cre on arrival was 1.0 and today is up to 1.4.
Progress Note - Sanitation Officer
Subjective
Date of Service: August 22, 2024
Less SOB
Objective
Labs:
08/22/24 07:43
08/22/24 07:43
Labs
Hgb 10.7 g/dL (12.0-16.0) L 08/22/24 07:43
Hct 32.2 % (37.0-47.0) L 08/22/24 07:43
Plt Count 318 10^3/uL (130-400) 08/22/24 07:43
Sodium 134 mmol/L (135-145) L 08/22/24 07:43
Potassium 4.2 mmol/L (3.5-5.1) 08/22/24 07:43
BUN 56 mg/dl (7-17) H 08/22/24 07:43
Creatinine 1.7 mg/dL (0.6-1.0) H 08/22/24 07:43
Glucose 93 mg/dl (70-99) 08/22/24 07:43
Vital Signs and I&O:
Vital Signs
Temp Pulse Resp BP Pulse Ox
97.7 F 89 18 111/61 98
08/22/24 07:58 08/22/24 08:33 08/22/24 07:58 08/22/24 08:33 08/22/24 07:58
Vital Signs
Temp Pulse Resp BP Pulse Ox
97.7 F 89 18 111/61 98
08/22/24 07:58 08/22/24 08:33 08/22/24 07:58 08/22/24 08:33 08/22/24 07:58
Intake & Output
08/20/24 08/21/24 08/22/24 08/23/24
06:59 06:59 06:59 06:59
Intake Total 840 / 840 920 / 920 1440 / 1440
Output Total 400 / 400
Balance 440 / 440 920 / 920 1440 / 1440
Physical Exam
Physical Exam
GEN: NAD. AAO x3
HEENT: EOMI, MMM
LUNGS: 2 L NC. No wheeze
CV: SR on tele.
EXT: +trace B/L LE edema
SKIN: No rash
--- NOTE | 2024-08-22 09:56 | W.PN.HOSP.TC ---
Today's Communication/Plan
-
Continue IV Lasix
Consult IR for paracentesis
Assessment / Plan
Assessment / Plan
79F hx pleural effusion HFpEF HTN afib ppm Celiac dz HLD pulm htn here for evaluation syncope with associate clavicle and rib fractures likely d/t fall. Syncope had occurred while taking bowel prep for capsule endoscopy. Patient endorsed feeling
lightheaded/dehydrated prior to event.
#Syncope likely vasovagal (patient was undergoing bowel prep for capsule endoscopy at the time)
Head CT negative
Check daily orthostatic vital signs
Patient has not been able to stand for standing blood pressure
#Acute hypoxic respiratory insufficiency
#Left clavicle fracture-sling in place
#Lt 3rd thru 5th rib fractures
#traumatic fractures, likely osteoporosis contributing
Acute hypoxia multifactorial from poor inspiratory effort from rib fractures, chronic right pleural effusion, and abdominal distention from constipation
Thoracic Lumbar XR appreciated multilevel discogenic degenerative disease, small to mod b/l pleural effusions, acute interstitial/alveolar cardiogenic edema, large dense b/l lower lobe airspace consolidations
Appreciate orthopedic surgery input, recommend conservative management with left arm sling for left clavicle fracture
Currently requiring 2 L of oxygen, wean as tolerated. She does not wear oxygen at home.
Continue pain control, incentive spirometry
# Chronic pleural effusions suspected multifactorial from partial hypoalbuminemia, deconditioning, possible malnutrition unclear severity
# Right pleural effusion status post thoracentesis on 05/23/2024 with symptomatic improvement in 1350 cc of fluid removed
# History of recurrent left-sided pleural effusion status post admission to [facility] with VATS and pulmonary decortication 01/2024.
# Ascites
Status post right thoracentesis on 08/17, draining 1.5 L, cultures negative for growth, path negative for malignancy, shows inflammation
Status post right thoracentesis 08/19, draining 1.35 L
Appreciate pulmonology input, continue IV diuresis for now
Consult IR for paracentesis
# Acute on chronic heart failure with preserved ejection fraction
Status post 1 dose of Lasix in the ER
Start Lasix 60 mg IV daily, asked cardiology to reevaluate
#Severe constipation
Status post enema 08/21
Continue aggressive bowel regimen
# Anemia of chronic disease
Ingested capsule endoscopy prior to coming to hospital, has kit for retrieval when passes. Noted still present in recent thoracic lumbar x-rays
Hemoglobin dipped to 7.8
Status post 1 unit packed red blood cells with appropriate response, hemoglobin now uptrending
Continue to monitor, transfuse as needed
#ANNA
Suspect cardiorenal syndrome
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
#History of Takotsubo CM w/recovered EF (2005)
# Paroxysmal atrial fibrillation
# Prior PVI (2016)
# s/p PFA 08/24/23
-continue ELECTRICIAN CHIEF eliquis 2.5 bid
-continue ELECTRICIAN CHIEF metoprolol
-cardiology increased amiodarone to 100 mg twice a day
# Hypothyroidism
-Synthroid continued
-TFT appears to suggest Hypothyroidism uncontrolled, TSH elevated
-pt endorses compliance with synthroid and no recent changes in dose
-repeated TFT show TSH trending down
-cont current synthroid for now, outpt follow up with Endocrinology recommended
#Elevated troponin from nonischemic myocardial injury
#Lung Nodule
# Chronic Mild Hyponatremia
-cont fluid restriction as above
# Celiac disease
gluten free diet
#Moderate portal hypertensive gastropathy
PT/OT appreciated SNF rehab
DVT PPX on Eliquis
Code status - full code
Updated son on phone 08/21
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
Total time spent to see the patient on the floor, examine the patient, review data and lab results, discuss treatment plan with patient, nursing staff around 51 minutes.
Physical Exam
General: no acute distress appears comfortable
HEENT: NormoCephalic, Moist mucous membranes and Atraumatic
Respiratory: Bibasilar crackles
Cardiac: S1/S2 and Regular Rhythm; No Murmur or Rub
GI: Soft, Non Tender, abd distended and Normal Bowel Sounds
Musculoskeletal: No Clubbing, No Cyanosis, Left arm in sling, Bilateral lower extremities edema +1
Skin: No Rash
Neuro: AO x 3 conversant coherent
Psych: Calm
Anticipated Discharge: 24 - 48 hours
Subjective/Interval History
-
Date of Service: August 22, 2024
Patient continues to have left rib pain, abdominal distention, and shortness of breath. She did have multiple bowel movements. No fever, no vomiting.
Objective Data
-
Labs:
Laboratory Results
08/22/24
07:43
WBC 8.3
Hgb 10.7 L
Hct 32.2 L
Plt Count 318
Sodium 134 L
Potassium 4.2
Chloride 107
Carbon Dioxide 22
BUN 56 H
Creatinine 1.7 H
Glucose 93
Calcium 7.8 L
Vital Signs:
Vital Signs
Temp Pulse Resp BP Pulse Ox
97.7 F 89 18 111/61 98
08/22/24 07:58 08/22/24 08:33 08/22/24 07:58 08/22/24 08:33 08/22/24 07:58
I&O
08/21/24 08/22/24 08/23/24
06:59 06:59 06:59
Intake Total 920 / 920 1440 / 1440
Balance 920 / 920 1440 / 1440
--- NOTE | 2024-08-22 11:45 | W.PN.PUL3 ---
Today's Communication / Plan
-
- Follow-up on ultrasound abdomen
- Acapella/flutter valve to help with secretion clearance
- Follow-up chest x-ray in 24 to 48 hours to monitor for any reaccumulation of pleural fluid
Assessment
-
Patient is not 79-year-old female who was admitted to the hospital about a week ago. Patient had an endoscopy procedure performed following which she had a syncopal episode and an unwitnessed fall. Patient was brought to the emergency room and
further imaging was suggestive of a displaced fracture of the lateral clavicle as well as minimal degenerative changes about the shoulder. Patient also noted to have lateral left 3rd through 5th rib fracture.
Patient was noted to have a large right-sided pleural effusion and had a thoracentesis performed on 08/17. Fluid study was suggestive of transudate. Patient has been on diuretics since. Over next few days patient had reaccumulation and on 08/21,
she had another thoracentesis, right side performed with more than 1 L of transudative fluid removed. Pulmonary consultation was requested for further input. Patient had similar recurrent challenging left-sided pleural effusions in the past which
were managed with an indwelling pleural catheter placement in 2023, subsequently she had a VATS procedure performed and in indwelling pleural catheter was removed.
In view of recurrent right-sided pleural effusion, pulmonary consultation was requested for further input.
#1. Recurrent right-sided pleural effusion, chronic (transudative)
- Fluid analysis is suggestive of a transudate with very low pleural fluid protein and LDH
- Etiology appears to be underlying congestive heart failure as well as hypoalbuminemia. Worsening pulmonary hypertension can also contribute towards pleural effusions. Recommend checking ultrasound abdomen to see if patient has any hepatic
pathology/cirrhotic changes, particularly with history of portal gastropathy noted on EGD in 05/2024. ?Hepatic hydrothorax.
- Right-sided pleural effusion has been stable for a long time with recent exacerbation requiring thoracentesis x 2 during this hospitalization
- Thoracentesis 08/21, 1350 cc of clear yellow pleural fluid removed, thoracentesis 08/17, 1500 cc of straw-colored pleural fluid evacuated (Cytology negative)
- Continue IV diuresis and spironolactone as tolerated
- Will favor conservative management for now, low-salt diet, and diuresis as tolerated and as needed thoracentesis
- Once patient is euvolemic and recovers from current complications, if she continues to need recurrent thoracentesis, we can reconsider indwelling pleural catheter placement.
- Consider palliative care consult. Patient is cachectic appearing, appears malnourished, has worsening pulmonary hypertension and at risk of additional complications when subjected to invasive procedures.
- Patient appears to have hard time coughing up secretions and is barely able to pull around 500 mL tidal volume with incentive spirometry. Add Acapella/flutter valve to help with secretion clearance.
#2. History of recurrent left-sided pleural effusion, s/p multiple thoracentesis
- S/p indwelling pleural catheter placement in 2023, subsequently removed after she had VATS decortication on the left side.
- Fluid analysis has been mostly transudative with negative cytology.
#3. Pulmonary hypertension.
- Suspect group II with underlying heart failure with preserved ejection fraction
- Recent echo was in the setting of large pleural effusion, volume overload which could have confounded the results
- Continue to optimize volume status, O2 support to keep saturations above 90%
- Cardiology service on case
- Poor prognosis in the setting of worsening pulmonary hypertension, estimated pulmonary artery systolic pressure 70 now compared to 45-50 in the past.
#4. Left rib fracture, 3rd through 5th.
- Traumatic, after a fall, associated with left clavicle fracture as well.
- Continue incentive spirometry, pain control, activity as tolerated.
#5. Acute hypoxic respiratory failure.
- This appears to be multifactorial in the setting of worsening pleural effusion, pulmonary congestion due to CHF, pulmonary hypertension as well as fall with left multiple rib fracture.
- Continue to optimize volume, IV diuresis, O2 support as needed to keep saturations above 90%. Incentive spirometry, pain control.
- Patient is chronically anticoagulated with Eliquis, making pulmonary embolism less likely.
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
Celiac Disease 1975
Takotsobu cardiomyopathy-recovered EF
s/p CARDIOGENIC SHOCK 04/08/05 EF 20% IMPROVED TO 50 % 04/09/[address]
Former smoker >20 pack years, quit 30 years ago
Hiatal hernia
Lyme disease
Carotid Disease
Hypertension
PANCREATITIS 2005
Irritable bowel disease
CHF
SVT/Paroxysmal atrial fibrillation s/p Cardioversion 06/18/2016
Endometrial polyps s/p D & C, polypectomy
HYPERLIPIDEMIA - MIXED
Fracture right foot/ankle in Feb 2018
Lymphocytic Colitis
Ambulatory dysfunction/Balance issues
Inguinal herniographies xs 2 02/25/2011
Vein removal in [place] inner foot 2020
Bilateral cataract surgeries 2020
History of pancreatitis 2005
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
Total time spent on this consultation/encounter __48__ minutes which includes review of history, physical exam, medications, laboratory data, personal review of imaging, extensive review of outpatient records, discussion with care team and
respiratory therapy.
Data:
ECHO 08/2024: Left ventricle is small in size. Normal left ventricular systolic function.
Left ventricular ejection fraction is 60-65% by volumetric assessment. Normal
regional wall motion. Mild concentric left ventricular hypertrophy. Stage II
diastolic dysfunction suggestive of abnormal relaxation and increased filling
pressures.
Normal right ventricular size and function. Pacer wire seen in right ventricle.
Mild mitral regurgitation.
Aortic sclerosis without stenosis.
Severe tricuspid regurgitation. Estimated pulmonary artery pressure of 70 mmHg
assuming a right atrial pressure of 3 mmHg.
Small to moderate pericardial effusion without evidence of hemodynamic
compromise. Pleural effusion present.
Compared to prior study of 11/25/2023:
Tricuspid regurgitation has worsened from moderate to severe
Pulmonary artery systolic pressure previously estimated at 45-50 mmHg and is
now 70 mmHg
Pericardial effusion is larger, previously small in size
Subjective Data
-
Date of Service:
Date of Service: August 22, 2024
Subjective:
Patient lying in bed in no acute distress, feels marginally better after having bowel movements.
Review of Systems
Genitourinary: Other (No new symptoms reported)
Objective Data
Data Reviewed
Vital Signs / I&O / Oxygen:
Vital Signs
Temp Pulse Resp BP Pulse Ox
97.8 F 74 18 127/67 96
08/22/24 11:37 08/22/24 11:37 08/22/24 11:37 08/22/24 11:37 08/22/24 11:37
Intake and Output
08/21/24 08/22/24 08/23/24
06:59 06:59 06:59
Intake Total 920 / 920 1440 / 1440
Balance 920 / 920 1440 / 1440
SaO2 96
Nasal Cannula flow liters per 2
minute
Physical Exam
General: Comfortable
HEENT: Normocephalic
Cardiovascular: S1-S2
Respiratory: Rhonchi (Right lower lobe posteriorly few inspiratory Rales.)
GI: Soft and Non Distended
Neurology: Awake
Skin: Warm
Labs/Micro/Reports
Lab Data
08/22/24 07:43
08/22/24 07:43
Microbiology
08/21/24 10:39 Pleural Fluid Body Fluid Culture - Preliminary
No Growth After 18-24 Hours
08/21/24 10:39 Pleural Fluid Gram Stain - Preliminary
08/17/24 11:22 Pleural Fluid Body Fluid Culture - Final
No Growth After 72 Hours
08/17/24 11:22 Pleural Fluid Gram Stain - Final
08/19/24 01:05 Urine Urine Culture - Final
No Significant Growth
[2024-08-22] MEDS: DUPHALAC/CHRONULAC 20 GRAMS PO (12:11)
--- NOTE | 2024-08-22 17:00 | CM ---
Pt remains on oxygen 2 liters NC Pox 96%
Lasix IV continues.
Spoke with pt and family at bedside .
She requested [facility].
Pulmonary involved.
PLAN To [facility] .
[2024-08-22] MEDS: ROXICODONE 10 MG PO ×2 (17:21→22:18)
[2024-08-22] MEDS: REMOVE LIDOCAINE PATCH 2 PATCH REMOVE (20:52)
[2024-08-22] MEDS: ASPIR LOW (ENTERIC COATED) 81 MG PO (20:58)
[2024-08-23] VITALS (7 sets, daily range): BP systolic 88–112; BP diastolic 49–68; PULSE 85–100; BMI 22.1; BMI 22.3
[2024-08-23] MEDS: TYLENOL PO (00:25)
[2024-08-23] MEDS: TYLENOL 650 MG PO ×5 (03:40→22:05)
[2024-08-23] MEDS: SYNTHROID 150 MCG PO (05:27)
--- NOTE | 2024-08-23 07:22 | W.PN.CARDCBS ---
Addendum entered and electronically signed by Sukhdev Renner MD 08/23/24 16:33:
I saw and examined the patient.
The Customer Experience Strategist's note was reviewed and I agree with the note.
Comment: Briefly, 79-year-old woman past medical history of heart failure with preserved ejection fraction, hypoalbuminemia, recurrent pleural effusion status post Pleurx and subsequent VATS, persistent atrial fibrillation status post PVI and
permanent pacemaker who presents in acute on chronic heart failure. Likely a component of hypoalbuminemia contributing as well with her most recent albumin of 1.9.
Initially treated with IV Lasix and her creatinine candice from 1.0 up to 1.9 and further diuretics were held at that point
Unfortunately proBNP is now higher than admission at 8400, she is above her dry weight and still requiring supplemental oxygen
Will trial IV Bumex 1 mg twice daily
Suspect we will need to tolerate some degree of renal insufficiency to improve her respiratory status - Wean oxygen as able
Heart rates were elevated overnight
With concern for PMT pacemaker was interrogated today showing underlying atrial fibrillation/atrial flutter
Upper rate limit was reduced to prevent rapid ventricular pacing
Increase amiodarone in an attempt to maintain sinus rhythm
Continue Eliquis
Rest per Albina Villegas
Original Note:
Today's Communication / Plan
-
-interrogate pacemaker
-uptitrate Amiodarone to 200 mg bid for recurrent afib
-change diuretic to Bumex 1 mg IV bid
Impression / Plan
-
PCP: Stella Sutherland PA-C
Intern Brand: Dr. Kiera Diaz
Impression:
Admitted with fall, clavicle fracture and possible acute HF 08/15/24
Syncope
Fall and left clavicle fracture
Acute on chronic HFpEF
Recurrent pleural effusion
s/p Left Asept pleural catheter placement 11/29/23, removed after admission to [facility] with VATS and pulmonary decortication 01/2024
Small to moderate B/L pleural effusions by CXR 08/15/2024
R thoracentesis 08/17/2024 for 1500 cc-no growth on culture, fluid studies suggestive of transudate
R thoracentesis 08/21/2024 1350cc clear yellow
ANNA
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
Hyponatremia
Paroxysmal atrial fibrillation
Prior PVI (2016)
s/p PFA 08/24/23
Tikosyn stopped during [facility] rehab stay 02/2024 and now on chronic amiodarone
Chronic anticoagulation on Eliquis
Takotsubo CM w/recovered EF (2005)
Negative workup for cardiac amyloid
HLD
HTN
MR
Renal nephrosis
Lung Nodule (2021, stable)
Anemia
celiac dz
Echo 05/18/2023: EF 69%, stage II diastolic dysfunction. Moderately dilated right atrium. Mild to moderate MR. Mild TR. PAP 36 mmHg. Small pericardial effusion
Echo 11/25/2023: EF 55-60%, global longitudinal strain is -14.2, stage III diastolic dysfunction, mild MR, dilated left atrium, aortic sclerosis, normal RV, pulmonary artery systolic pressure 45-50 mmHg
Echo 08/16/2024: EF 60-65%, mild cLVH, stage II diastolic dysfunction, mild MR, severe TR, estimated PAP 70 mmHg, small to moderate pericardial effusion w/o evidence of hemodynamic compromise
Plan:
-Weight up 1lb overnight to 138 lbs (standing scale) after Lasix 60 mg IV daily restarted 08/21/24. Patient was diuresed earlier this admission and then diuretic (outpt dose of Torsemide 20 mg) held for ANNA with creat 1.9 from 1.0 on admission,
baseline creatine previously 1-1.2.
- CXR on 08/21/24 suggested recurrent right pleural effusion and cardiology reconsulted, Lasix 60 mg IV restarted and patient had a right-sided thoracentesis for 1.35 L.
-Previous dry weight 131 lbs at last d/c 05/26/24. Patient weighs 138 lbs on 08/23/24. Wt on admission 151 lbs
-creat 1.8 08/23
-proBNP 8420 08/22/2024 (was 2340 on admission)
-switch to Bumex 1 mg IV BID today. BP low this a.m. so will start with Bumex 0.5 mg IV x 1, then reassess BPs
-Outpatient dose of spironolactone 12.5 mg MWF on hold due to ANNA
-pt went for paracentesis today but procedure cancelled
-Outpatient dose of Toprol XL 25 mg daily has been continued
-Patient is not chronically on NILAY/ARB/ARNI due to hypotension
-Patient is not chronically on an SGLT2 inhibitor due to history of UTI
-EF stable by echo this admission
-Previous cardiac amyloid workup was negative
-Syncope on admission in the setting of frequent defecation and orthostasis, no history of syncope. Patient has not previously been orthostatic nor has she required midodrine in the past.
-Patient with known chronic anemia and recent outpatient transfusions have been arranged by GI. Known hypoalbuminemia, albumin given x3 this admission.
-rec'd 1 u prbcs 08/18/2024, and 2 units prbcs in 2 weeks SAP DATA ARCHITECT. Hgb stable 10.6 08/23.
-Patient with known paroxysmal A-fib and went into afib on telemetry 08/22, also with ? pacemaker-mediated tachycardia on telemetry 08/23 (runs of Vpacing w/ 130s).
-Will have Cryptonator rep interrogate device today 08/23
-Device check in the office on 05/22/2024 showed an A-fib burden of 1%, but by most recent device check in the ER on 08/15/2024 atrial arrhythmia burden has increased to 53%.
- Amiodarone was increased to 100 mg bid on admission 08/16/2024. Given recurrent afib with increase Amio to 200 mg bid
- Another option would be possible AVJ as patient has PPM in place, but this does not appear to be acute and can be considered for future management options.
-Continue Eliquis 2.5 mg BID (age 79, Cre 1.8, wt 62.7 kg) as weight is generally less than 60 kg
HPI: Patient came to [facility] ER yesterday after fall and is now being mated with syncope, clavicle fracture and possible HFpEF with consultation to cardiology. Patient was seen in the office on 07/17/2024 and her proBNP was felt to be acceptable
although her weight was up to 136 lbs with her previous weight being 133 lbs, there were also moderate bilateral pleural effusions. Usual dose of torsemide 20 mg daily was continued and the patient was agreeable to referral for palliative care
assessment. eCW tasks was reviewed by me and patient was given 1 unit PRBCs on 08/02/2024 for Hgb of 7.7 and the Hgb only improved up to 8.2 so a second unit was given on 08/06/24. Remote device check 08/08/2024 had a 7-hour long atrial flutter episode
and patient was already on Eliquis, no other changes, but later that day patient called with weight gain and was told to take additional torsemide 20 mg for a total of 40 mg daily on 08/08/2024 and 08/09/2024 and although she lost 4 lbs she had ongoing
GILLIAM and fatigue. Then patient was preparing for a scheduled capsule endoscopy for her celiac disease by taking Miralax and after swallowing the capsule she felt disoriented, lost her sense of balance and had a fall. Patient was brought to [facility] ER
and admitted for syncope, clavicle fracture and possible acute on chronic HFpEF. Patient was given Lasix 40 mg IV x 1 in the ER. Her Cre on arrival was 1.0 and today is up to 1.4.
Progress Note - Intern Brand
Subjective
Date of Service: August 23, 2024
-unable to have paracentesis this a.m.
-having recurrent afib
-uptitration of diuretic limited by low BP and CKD
-remains on 2 L O2
Objective
Labs:
Labs
Hgb 10.7 g/dL (12.0-16.0) L 06/18/25 07:43
Hct 32.2 % (37.0-47.0) L 08/22/24 07:43
Plt Count 318 10^3/uL (130-400) 08/22/24 07:43
Sodium 134 mmol/L (135-145) L 08/22/24 07:43
Potassium 4.2 mmol/L (3.5-5.1) 08/22/24 07:43
BUN 56 mg/dl (7-17) H 08/22/24 07:43
Creatinine 1.7 mg/dL (0.6-1.0) H 08/22/24 07:43
Glucose 93 mg/dl (70-99) 08/22/24 07:43
Vital Signs and I&O:
Vital Signs
Temp Pulse Resp BP Pulse Ox
98.3 F 91 20 110/60 95
08/23/24 03:30 08/23/24 03:30 08/23/24 03:30 08/23/24 03:30 08/23/24 03:30
Vital Signs
Temp Pulse Resp BP Pulse Ox
98.3 F 91 20 110/60 95
08/23/24 03:30 08/23/24 03:30 08/23/24 03:30 08/23/24 03:30 08/23/24 03:30
Intake & Output
08/21/24 08/22/24 08/23/24 08/24/24
06:59 06:59 06:59 06:59
Intake Total 920 / 920 1440 / 1440 240 / 240
Balance 920 / 920 1440 / 1440 240 / 240
Physical Exam
Physical Exam
GEN: No distress, awake, Ox3. sitting upright in bed. frail
HEENT: supple, anicteric, mmm
LUNGS: decreased R 1/3 up. No rales
CV: irreg, irreg 1/6 syst LSB, no murmur
ABD: soft, BS+, NT/ND
EXT: trace B/L LE edema. LUE edematous, L arm in sling
NEURO: Gross non-focal
SKIN: No rash
[2024-08-23] MEDS: LIDOCAINE 4% PATCH 2 PATCH TOPICAL (08:11)
[2024-08-23] MEDS: ELIQUIS 2.5 MG PO ×2 (08:13→22:04)
[2024-08-23] MEDS: SENOKOT-S PO ×2 (08:13→22:03)
[2024-08-23] MEDS: MIRALAX PO ×2 (08:13→22:03)
[2024-08-23] MEDS: VITAMIN C 1000 MG PO (08:13)
[2024-08-23] MEDS: DILAUDID 0.5 MG IV (08:13)
[2024-08-23] MEDS: TOPROL XL 25 MG PO (08:15)
[2024-08-23] MEDS: ZETIA 10 MG PO (08:18)
[2024-08-23] MEDS: PACERONE 100 MG PO ×2 (08:18→12:32)
[2024-08-23] MEDS: VITAMIN B-12 1000 MCG PO (08:19)
[2024-08-23] MEDS: HYDROPHOR 1 APPLIC TOPICAL ×2 (08:19→22:04)
[2024-08-23] MEDS: BenGay-Like 1 APPLIC TOPICAL ×4 (08:19→22:06)
[2024-08-23] MEDS: KCL 20 MEQ PO (08:19)
[2024-08-23 08:20] LABS: Hematocrit 32.4 % (37.0-47.0); Hemoglobin 10.6 g/dL (12.0-16.0); Mean Corp Hgb Conc. 32.7 g/dL (33.0-37.0); Mean Corpuscular Volume 101.3 fL (81.0-99.0); Platelet Count 334 10^3/uL (130-400); Red Cell Dist. Width 20.7 % (11.5-14.5)
--- NOTE | 2024-08-23 08:33 | W.PN.HOSP.TC ---
Today's Communication/Plan
-
see bold
Assessment / Plan
Assessment / Plan
79F hx pleural effusion HFpEF HTN afib ppm Celiac dz HLD pulm htn here for evaluation syncope with associate clavicle and rib fractures likely d/t fall. Syncope had occurred while taking bowel prep for capsule endoscopy. Patient endorsed feeling
lightheaded/dehydrated prior to event.
#Syncope likely vasovagal (patient was undergoing bowel prep for capsule endoscopy at the time)
Head CT negative
Check daily orthostatic vital signs
Patient has not been able to stand for standing blood pressure
#Acute hypoxic respiratory insufficiency
#Left clavicle fracture-sling in place
#Lt 3rd thru 5th rib fractures
#traumatic fractures, likely osteoporosis contributing
Acute hypoxia multifactorial from poor inspiratory effort from rib fractures, chronic right pleural effusion, and abdominal distention from constipation
Thoracic Lumbar XR appreciated multilevel discogenic degenerative disease, small to mod b/l pleural effusions, acute interstitial/alveolar cardiogenic edema, large dense b/l lower lobe airspace consolidations
Appreciate orthopedic surgery input, recommend conservative management with left arm sling for left clavicle fracture
Currently satting 98% on 2 L. States she feels better with the oxygen on. She does not wear oxygen at home.
Continue pain control, incentive spirometry
# Chronic pleural effusions suspected multifactorial from partial hypoalbuminemia, deconditioning, possible malnutrition unclear severity
# Right pleural effusion status post thoracentesis on 05/23/2024 with symptomatic improvement in 1350 cc of fluid removed
# History of recurrent left-sided pleural effusion status post admission to [place] with VATS and pulmonary decortication 01/2024.
# Ascites
Status post right thoracentesis on 08/17, draining 1.5 L, cultures negative for growth, path negative for malignancy, shows inflammation
Status post right thoracentesis 08/19, draining 1.35 L
Cardiology and pulmonology following, changed from IV Lasix to Bumex 1 mg IV twice daily
Start midodrine 5 mg every 4 hours as needed SBP less than 90
Not enough fluid in the abdomen for paracentesis
# Acute on chronic heart failure with preserved ejection fraction
Status post 1 dose of Lasix in the ER
Cardiology following, changed from IV Lasix to Bumex 1 mg IV twice daily
#Severe constipation
Status post enema 08/21
Continue aggressive bowel regimen
#Peripheral artery disease
#Cyanotic left foot
Check ABIs, consult vascular surgery
# Anemia of chronic disease
Ingested capsule endoscopy prior to coming to hospital, has kit for retrieval when passes. Noted still present in recent thoracic lumbar x-rays
Hemoglobin dipped to 7.8
Status post 1 unit packed red blood cells with appropriate response, hemoglobin now uptrending
Continue to monitor, transfuse as needed
#ANNA
Suspect cardiorenal syndrome
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
#History of Takotsubo CM w/recovered EF (2005)
# Paroxysmal atrial fibrillation
# Prior PVI (2016)
# s/p PFA 08/24/23
-continue LAND DEVELOPMENT MANAGER eliquis 2.5 bid
-continue LAND DEVELOPMENT MANAGER metoprolol
-cardiology increased amiodarone to 200 mg twice a day
# Hypothyroidism
-Synthroid continued
-TFT appears to suggest Hypothyroidism uncontrolled, TSH elevated
-pt endorses compliance with synthroid and no recent changes in dose
-repeated TFT show TSH trending down
-cont current synthroid for now, outpt follow up with Endocrinology recommended
#Elevated troponin from nonischemic myocardial injury
#Lung Nodule
# Chronic Mild Hyponatremia
-cont fluid restriction as above
# Celiac disease
gluten free diet
#Moderate portal hypertensive gastropathy
PT/OT appreciated SNF rehab
DVT PPX on Eliquis
Code status - full code
Updated son on phone 08/21
Called son 08/22, he did not bulk picker
Updated [id number] at bedside 08/23
Total time spent to see the patient on the floor, examine the patient, review data and lab results, discuss treatment plan with patient, nursing staff around 53 minutes.
Physical Exam
General: no acute distress appears comfortable
HEENT: NormoCephalic, Moist mucous membranes and Atraumatic
Respiratory: Bibasilar crackles
Cardiac: S1/S2 and Regular Rhythm; No Murmur or Rub
GI: Soft, Non Tender, abd distended and Normal Bowel Sounds
Musculoskeletal: No Clubbing, No Cyanosis, Left arm with edema, Left arm in sling
Bilateral lower extremities edema +1
Skin: No Rash
Neuro: AO x 3 conversant coherent
Psych: Calm
Anticipated Discharge: 24 - 48 hours
Subjective/Interval History
-
Date of Service: August 23, 2024
Patient complains of left heel pain. She continues to have left rib pain. She reports that her shortness of breath feels better with oxygen. No fever, no vomiting. No chest pain.
Objective Data
-
Labs:
Laboratory Results
08/23/24
07:50
WBC 8.4
Hgb 10.6 L
Hct 32.4 L
Plt Count 334
Sodium Pending
Potassium Pending
Chloride Pending
Carbon Dioxide Pending
BUN Pending
Creatinine Pending
Glucose Pending
Calcium Pending
Total Bilirubin Pending
AST Pending
ALT Pending
Alkaline Phosphatase Pending
Vital Signs:
Vital Signs
Temp Pulse Resp BP Pulse Ox
97.7 F 98 18 101/68 99
08/23/24 07:17 08/23/24 08:15 08/23/24 07:17 08/23/24 08:15 08/23/24 07:17
I&O
08/22/24 08/23/24 08/24/24
06:59 06:59 06:59
Intake Total 1440 / 1440 240 / 240
Balance 1440 / 1440 240 / 240
[2024-08-23 09:51] LABS: ALT (SGPT) 14 U/L (0-35); AST (SGOT) 23 U/L (14-36); Albumin 1.9 g/dl (3.5-5.0); Alkaline Phosphatase 106 U/L (38-126); Blood Urea Nitrogen 55 mg/dl (7-17); Calcium 7.8 mg/dl (8.4-10.2); Carbon Dioxide 22 mmol/L (22-30); Chloride 106 mmol/L (98-107); Estimated Creatinine Clearance 23 ml/min; Glucose 81 mg/dl (70-99); Potassium 4.2 mmol/L (3.5-5.1); Sodium 133 mmol/L (135-145); Total Protein 4.9 g/dl (6.3-8.2); eGFR 27.96
[2024-08-23] MEDS: LASIX IV (10:03)
--- NOTE | 2024-08-23 11:25 | CM ---
Pt remains on oxygen 2 liters NC Pox 98%
Lasix IV continues.
Pain meds po/IV as needed.
Family and pt indicate wanting [facility] at [facility].
Please check with [facility] on [facility] for a bed availability.
Pulmonary involved.
[facility]
report [phone]
fax [phone]
PLAN To [facility] .
[2024-08-23] MEDS: DUPHALAC/CHRONULAC 20 GRAMS PO (11:48)
[2024-08-23] MEDS: BUMEX IV (11:57)
[2024-08-23] MEDS: BUMEX 0.5 MG IV (11:59)
--- NOTE | 2024-08-23 12:41 | W.CARD.DEVCH ---
Cardiac Device Check
-
Device: Pacemaker
[place] Nurse: [employer]
The patient's device was interrogated with assistance of the device videotape sales representative.
Pt in afib/flutter since 08/22/2024. Device is undersensing afib. Pt with 10.7% Afib burden since last interrogation on 08/15/2024
Changed upper tracking rate from 130 to 90 bpm to reduce the rapid V pacing pt experienced early today (Vpacing 120-130s).
--- NOTE | 2024-08-23 13:05 | W.PN.PUL3 ---
Today's Communication / Plan
-
- Continue diuresis as tolerated
- Follow-up chest x-ray in a.m.
Assessment
-
Patient is not 79-year-old female who was admitted to the hospital about a week ago. Patient had an endoscopy procedure performed following which she had a syncopal episode and an unwitnessed fall. Patient was brought to the emergency room and
further imaging was suggestive of a displaced fracture of the lateral clavicle as well as minimal degenerative changes about the shoulder. Patient also noted to have lateral left 3rd through 5th rib fracture.
Patient was noted to have a large right-sided pleural effusion and had a thoracentesis performed on 08/17. Fluid study was suggestive of transudate. Patient has been on diuretics since. Over next few days patient had reaccumulation and on 08/21,
she had another thoracentesis, right side performed with more than 1 L of transudative fluid removed. Pulmonary consultation was requested for further input. Patient had similar recurrent challenging left-sided pleural effusions in the past which
were managed with an indwelling pleural catheter placement in 2023, subsequently she had a VATS procedure performed and in indwelling pleural catheter was removed.
In view of recurrent right-sided pleural effusion, pulmonary consultation was requested for further input.
#1. Recurrent right-sided pleural effusion, chronic (transudative)
- Fluid analysis is suggestive of a transudate with very low pleural fluid protein and LDH
- Etiology appears to be underlying congestive heart failure as well as hypoalbuminemia. Worsening pulmonary hypertension can also contribute towards pleural effusions. Ultrasound abdomen not suggestive of cirrhosis. Portal gastropathy noted on
endoscopy however.
- Right-sided pleural effusion has been stable for a long time with recent exacerbation requiring thoracentesis x 2 during this hospitalization
- Thoracentesis 08/21, 1350 cc of clear yellow pleural fluid removed, thoracentesis 08/17, 1500 cc of straw-colored pleural fluid evacuated (Cytology negative)
- Continue IV diuresis and spironolactone as tolerated
- Will favor conservative management for now, low-salt diet, and diuresis as tolerated and as needed thoracentesis
- Once patient is euvolemic and recovers from current complications, if she continues to need recurrent thoracentesis, we can reconsider indwelling pleural catheter placement.
- Consider palliative care consult. Patient is cachectic appearing, appears malnourished, has worsening pulmonary hypertension and at risk of additional complications when subjected to invasive procedures.
- Patient appears to have hard time coughing up secretions and is barely able to pull around 500 mL tidal volume with incentive spirometry. Added Acapella/flutter valve to help with secretion clearance.
- Follow-up chest x-ray, 08/24, to evaluate for any decannulation
#2. History of recurrent left-sided pleural effusion, s/p multiple thoracentesis
- S/p indwelling pleural catheter placement in 2023, subsequently removed after she had VATS decortication on the left side.
- Fluid analysis has been mostly transudative with negative cytology.
#3. Pulmonary hypertension.
- Suspect group II with underlying heart failure with preserved ejection fraction
- Recent echo was in the setting of large pleural effusion, volume overload which could have confounded the results
- Continue to optimize volume status, O2 support to keep saturations above 90%
- Cardiology service on case
- Poor prognosis in the setting of worsening pulmonary hypertension, estimated pulmonary artery systolic pressure 70 now compared to 45-50 in the past.
#4. Left rib fracture, 3rd through 5th.
- Traumatic, after a fall, associated with left clavicle fracture as well.
- Continue incentive spirometry, pain control, activity as tolerated.
#5. Acute hypoxic respiratory failure.
- This appears to be multifactorial in the setting of worsening pleural effusion, pulmonary congestion due to CHF, pulmonary hypertension as well as fall with left multiple rib fracture.
- Continue to optimize volume, IV diuresis, O2 support as needed to keep saturations above 90%. Incentive spirometry, pain control.
- Patient is chronically anticoagulated with Eliquis, making pulmonary embolism less likely.
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
Celiac Disease 1975
Takotsobu cardiomyopathy-recovered EF
s/p CARDIOGENIC SHOCK 04/08/05 EF 20% IMPROVED TO 50 % 04/09/[address]
Former smoker >20 pack years, quit 30 years ago
Hiatal hernia
Lyme disease
Carotid Disease
Hypertension
PANCREATITIS 2005
Irritable bowel disease
CHF
SVT/Paroxysmal atrial fibrillation s/p Cardioversion 06/18/2016
Endometrial polyps s/p D & C, polypectomy
HYPERLIPIDEMIA - MIXED
Fracture right foot/ankle in Feb 2018
Lymphocytic Colitis
Ambulatory dysfunction/Balance issues
Inguinal herniographies xs 2 02/25/2011
Vein removal in Lt. inner foot 2020
Bilateral cataract surgeries 2020
History of pancreatitis 2005
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
Discussed with primary team, left foot toe appear bit cyanotic. Unclear if this is chronic versus subacute. Currently workup in process.
Total time spent on this consultation/encounter __52__ minutes which includes review of history, physical exam, medications, laboratory data, personal review of imaging, extensive review of outpatient records, discussion with care team and
respiratory therapy.
Data:
ECHO 08/2024: Left ventricle is small in size. Normal left ventricular systolic function.
Left ventricular ejection fraction is 60-65% by volumetric assessment. Normal
regional wall motion. Mild concentric left ventricular hypertrophy. Stage II
diastolic dysfunction suggestive of abnormal relaxation and increased filling
pressures.
Normal right ventricular size and function. Pacer wire seen in right ventricle.
Mild mitral regurgitation.
Aortic sclerosis without stenosis.
Severe tricuspid regurgitation. Estimated pulmonary artery pressure of 70 mmHg
assuming a right atrial pressure of 3 mmHg.
Small to moderate pericardial effusion without evidence of hemodynamic
compromise. Pleural effusion present.
Compared to prior study of 11/25/2023:
Tricuspid regurgitation has worsened from moderate to severe
Pulmonary artery systolic pressure previously estimated at 45-50 mmHg and is
now 70 mmHg
Pericardial effusion is larger, previously small in size
Subjective Data
-
Date of Service:
Date of Service: August 23, 2024
Subjective:
Patient lying in bed in no acute distress.
Review of Systems
Genitourinary: Other (No new symptoms reported)
Objective Data
Data Reviewed
Vital Signs / I&O / Oxygen:
Vital Signs
Temp Pulse Resp BP Pulse Ox
98 F 87 18 88/53 98
08/23/24 11:55 08/23/24 11:59 08/23/24 11:55 08/23/24 11:59 08/23/24 11:55
Intake and Output
08/22/24 08/23/24 08/24/24
06:59 06:59 06:59
Intake Total 1440 / 1440 240 / 240
Balance 1440 / 1440 240 / 240
SaO2 98
Nasal Cannula flow liters per 2
minute
Physical Exam
General: Comfortable
HEENT: Normocephalic
Cardiovascular: S1-S2
Respiratory: Rhonchi (Right lower lobe posteriorly few inspiratory Rales.)
GI: Soft and Non Distended
Neurology: Awake
Skin: Warm
Labs/Micro/Reports
Lab Data
08/23/24 07:50
08/23/24 07:50
Microbiology
08/21/24 10:39 Pleural Fluid Body Fluid Culture - Preliminary
No Growth After 48 Hours
08/21/24 10:39 Pleural Fluid Gram Stain - Preliminary
08/17/24 11:22 Pleural Fluid Body Fluid Culture - Final
No Growth After 72 Hours
08/17/24 11:22 Pleural Fluid Gram Stain - Final
08/19/24 01:05 Urine Urine Culture - Final
No Significant Growth
--- NOTE | 2024-08-23 13:34 | CON.VAS ---
Addendum entered and electronically signed by Jesse Snow MD 08/23/24 17:57:
Seen and examined with NURY Cordova. Seen earlier today this is a late entry. Patient is an 79-year-old female with multiple medical issues as noted below. Admitted with essentially worsened respiratory failure, CHF, following a syncopal episode that
led to traumatic fall. She has had malnourishment/failure to thrive as well. Not very active. However she is noted pain in her left heel and somewhat in her foot (history slightly difficult to ascertain). More so though she notes
sensitivity/tenderness in the left foot and heel.
On exam/she is awake and alert. She is in no acute distress. Breathing is unlabored. Abdomen is soft. Palpable bilateral femoral pulses and palpable right DP pulse (1+ or 1+/2+). On the left side nonpalpable distal to the femoral pulse. Left
foot with slightly cyanotic appearance changes of the middle toes. However capillary refill is reasonable. There is a dopplerable distal LORAINE/proximal DP signal.
Noninvasive studies reviewed. Left-sided FABIAN 0.49. TBI 0.
Plan/ Likely multifactorial ischemic condition to the left foot. I do not think her foot is imminently threatened. I do not think this is acute limb ischemia. Based on ultrasound images, there is chronic plaque there. Likely chronic SFA stenosis
resulting in this, and likely worsened or exacerbated secondary to her overall medical condition (CHF/respiratory failure). I think she is a brittle/critical patient and taking her to the OR too early for angiography/revascularization may run the
risk of more harm. Therefore would favor complete medical optimization, and then I can perform angiography with attempted left SFA angioplasty/stenting. As of now, I do not think she would be able to lay flat and tolerate angiography under
sedation, and I think general anesthesia with her respiratory condition would be high risk. Will follow along.
Original Note:
Consultation
Consultation Request
Date/Time Consultation Performed: 08/23/24 1330
Requesting Provider: Hospitalist
Performing Provider: Drea Cordova, PROFESSOR OF BUSINESS-C for Jesse Snow MD
Reason for Consultation: LLE digit discoloration
Medical History
-
Chief Complaint: PAD with LLE digit discoloration
History of Present Illness:
This is an 79-year-old female significant past medical history of atrial fibrillation, CHF, pleural effusion, CHF, hypertension, A-fib cardiomyopathy, pacemaker celiac disease, hyperlipidemia, pulmonary hypertension, aortic valve insufficiency,
renal nephrosis, and anemia who presented to [facility] on 08/15/2024 following syncopal episode leading to traumatic fall. Since admission patient has had recurrent pleural effusion, acute hypoxic respiratory sufficiency, acute on chronic heart failure,
severe constipation, anemia, and ANNA. Today patient endorses that while being transferred to radiology for possible thoracentesis she noted bluish discoloration to her left 2nd and 3rd digit. Denies pain at rest that her left foot but does endorse
pain with tenderness at digits and particularly left ankle, however she is not clear if the ankle pain has been present since her syncopal episode. She endorses that her syncopal episode has caused her to have intermittent full body pains since
fall. She additionally notes that she has had a generalized decompensation since December, with malnourishment, generalized weakness, and chronic pleural effusion. She denies rest pain or claudication but does endorse a sedentary lifestyle of
minimal ambulation especially since December. Does endorse vein stripping but otherwise denies peripheral arterial disease history or seeing a vascular surgeon for any endovascular or open revascularization procedures. Arterial ultrasound was
obtained with FABIAN/TBI with discoloration of left foot noted which indicated FABIAN of 0.49 and TBI of 0 at the left. She also notes worsening swelling of her left upper extremity that started yesterday evening into this morning, endorses continued
discomfort at left extremity but that is unchanged since fracture.
Past Medical History
Past Medical History: Arrhythmias (A-fib), CHF and Other (Pleural effusion, CHF, hypertension, A-fib cardiomyopathy, pacemaker celiac disease, hyperlipidemia, pulmonary hypertension, aortic valve insufficiency, Renal nephrosis, Anemia )
Past Surgical History: Cardiac (Medtronic DC PPM 10/19/2023, Prior PVI (2016), PFA 08/24/23) and Other (VATS and pulmonary decortication 01/2024, Bilateral hernia repair, left breast lumpectomy, cataract extraction)
Social History
Tobacco: Former Smoker (Quit roughly 30 years ago)
Alcohol: None
Drug: None
Living: With Family
Allergies / Home Medications
Allergy/AdvReac Type Severity Reaction Status Date / Time
Antihistamines Allergy Rash Verified 08/09/24 09:21
Cephalosporins Allergy Rash Verified 08/09/24 09:21
gluten Allergy Intestinal Verified 08/15/24 21:13
Issues
hydrochlorothiazide Allergy Rash Verified 08/09/24 09:21
penicillin G Allergy Rash Verified 08/09/24 09:21
penicillin V Allergy Rash Verified 08/09/24 09:21
Penicillins Allergy Rash Verified 08/09/24 09:21
�Medication �Instructions �Recorded �Confirmed �Type
aspirin 81 mg tablet,delayed 81 mg PO HS blood thinner 05/17/23 08/15/24 History
release
apixaban 2.5 mg tablet (Eliquis) 2.5 mg PO BID afib 07/19/23 08/15/24 History
ezetimibe 10 mg tablet (Zetia) 10 mg PO DAILY cholesterol 07/19/23 08/15/24 History
potassium chloride 20 mEq 20 meq PO DAILY Supplement 07/19/23 08/15/24 History
tablet,extended release(part/cryst)
amiodarone 200 mg tablet 100 mg PO DAILY Arrhythmia 05/10/24 08/15/24 History
cholecalciferol (vitamin D3) 50 50 mcg PO DAILY Supplement 05/10/24 08/15/24 History
mcg (2,000 unit) tablet (Vitamin
D3)
levothyroxine 50 mcg tablet 150 mcg PO DAILY Thyroid 05/10/24 08/15/24 History
metoprolol succinate 25 mg 25 mg PO DAILY Blood Pressure 05/10/24 08/15/24 History
tablet,extended release 24 hr
multivitamin-ferrous 1 tab PO DAILY Supplement 05/10/24 08/15/24 History
fumarate-folic acid 18 mg-400 mcg
tablet (Centrum)
sour monroe extract 1,000 mg 800 mg PO DAILY Supplement 05/10/24 08/15/24 History
capsule (Tart Monroe Extract)
spironolactone 25 mg tablet 12.5 mg PO MOWEFR Fluid 05/10/24 08/15/24 History
retention/Swelling
torsemide 20 mg tablet 20 mg PO DAILY Fluid 05/10/24 08/15/24 History
Retention/Swelling
vitamin B complex 1 tab PO DAILY Supplement 05/10/24 08/15/24 History
calcium carbonate (Calcium 600) 600 mg PO DAILY Supplement ##0 05/22/24 08/15/24 History
ascorbic acid (vitamin C) 1,000 mg 1,000 mg PO DAILY 08/15/24 08/15/24 History
tablet (Vitamin C)
diphenhydramine HCl 25 mg chewable 12.5 mg PO HSPRN PRN sleep 08/15/24 08/15/24 History
tablet (Allergy Relief
(diphenhydramine))
pitavastatin calcium 1 mg tablet 1 mg PO MOWEFR 08/15/24 08/15/24 History
(Livalo)
Review of Systems
-
History Source: Patient
Constitutional: Reports Weight Loss and Fatigue
EENT: Reports No Symptoms
Respiratory: Reports Trouble Breathing
Cardiac: Reports No Symptoms
Abdomen/GI: Reports No Symptoms
: Reports No Symptoms
Musculoskeletal: Reports Edema (BL LE)
Skin: Reports Other (Acutely noticed blue discoloration to left foot 2nd and 3rd digit )
Neurological: Reports No Symptoms
Endocrine: Reports No Symptoms
Physical Exam
Vital Signs
Temp Pulse Resp BP Pulse Ox
98 F 87 18 88/53 98
08/23/24 11:55 08/23/24 11:59 08/23/24 11:55 08/23/24 11:59 08/23/24 11:55
Lab Results
08/23/24 07:50
08/23/24 07:50
Troponin I 0.054 ng/ml H* 08/19/24 04:31
Cmo-K-[id number] Pept 8420 pg/ml 08/22/24 07:43
Physical Exam
General: No Apparent Distress and Comfortable
HEENT: Normocephalic, Anicteric and Atraumatic
Respiratory: Non Labored Respirations (on oxygen via NC)
Cardiac: Negative JVD
GI: Non Tender and Distended
Musculoskeletal: Edema (BL LE with +1 edema)
Skin: Other (left foot color then right, left foot 2nd and 3rd digits with blue discoloration, cap refill BL less than 3 seconds, motor and sensation intact, tender to palpation in )
Neuro: AO x 3
Pulses: Bilateral Femoral: +1 and Right Dorsalis Pedis: +1 (unable to palpate distal left foot signals, doppoler left foot AT signal )
Assessment / Plan
-
Assessment: 79-year-old female admitted following syncopal episode that led to left clavicle fracture and broken ribs noted to have blue discoloration of left foot digits noninvasives obtained demonstrating 0.49 FABIAN and 0 TBI left confirming
peripheral arterial disease.
Plan:
Patient seen and evaluated with Dr. Jesse Snow M.D., patient with evidence of peripheral arterial disease however she is extremely deconditioned from a cardiopulmonary standpoint and with ANNA, would ideally recommend angiogram however patient states
she can not tolerate lying flat at this time, amongst her other comorbidities. Recommend medical optimization and then can consider timing of left lower extremity angiogram for peripheral arterial disease.
Neurovascular checks every 4 hours, if change occurs please call vascular surgeon covering
Additionally patient endorsed acute onset of left upper extremity swelling recommending peripheral venous ultrasound of left upper extremity to rule out venous clot
[2024-08-23] MEDS: ROXICODONE 5 MG PO (14:35)
[2024-08-23] MEDS: BUMEX 1 MG IV (17:00)
[2024-08-23] MEDS: REMOVE LIDOCAINE PATCH 2 PATCH REMOVE (22:03)
[2024-08-23] MEDS: ASPIR LOW (ENTERIC COATED) 81 MG PO (22:05)
[2024-08-23] MEDS: PACERONE 200 MG PO (23:00)
[2024-08-24] VITALS (10 sets, daily range): BP systolic 104–146; BP diastolic 47–65; PULSE 70; O2SAT 100; BMI 23.1; BMI 22.5
[2024-08-24] MEDS: TYLENOL PO (00:57)
[2024-08-24] MEDS: ROXICODONE 5 MG PO ×2 (03:05→18:10)
[2024-08-24] MEDS: TYLENOL 650 MG PO ×6 (03:05→23:38)
[2024-08-24] MEDS: SYNTHROID 150 MCG PO (05:15)
--- NOTE | 2024-08-24 07:42 | W.PN.CARDCBS ---
Addendum entered and electronically signed by Sukhdev Renner MD 08/24/24 13:04:
I saw and examined the patient.
The [employer]'s note was reviewed and I agree with the note.
Comment: Briefly, 79-year-old woman past medical history of heart failure with preserved ejection fraction, hypoalbuminemia, recurrent pleural effusion status post Pleurx and subsequent VATS, persistent atrial fibrillation status post PVI and
permanent pacemaker who presents in acute on chronic heart failure. Likely a component of hypoalbuminemia contributing as well with her most recent albumin of 1.9.
Initially treated with IV Lasix and her creatinine candice from 1.0 up to 1.9 and further diuretics were held at that point
Unfortunately repeat proBNP was higher than admission at 8400, she is above her dry weight
Cont IV Bumex 1 mg twice daily
Suspect we will need to tolerate some degree of renal insufficiency to improve her respiratory status - Wean oxygen as able
Maintain sinus rhythm with increase dose of amiodarone - cont 200mg BID for now
Continue Eliquis
Discussed with family at bedside
Original Note:
Today's Communication / Plan
-
-cont IV diuresis
-involve palliative care
Impression / Plan
-
PCP: Stella Sutherland PA-C
Mailroom Coordinator: Dr. Kiera Diaz
Impression:
Admitted with fall, clavicle fracture and possible acute HF 08/15/24
Syncope
Fall and left clavicle fracture
Acute on chronic HFpEF
Recurrent pleural effusion
s/p Left Asept pleural catheter placement 11/29/23, removed after admission to [place] with VATS and pulmonary decortication 01/2024
Small to moderate B/L pleural effusions by CXR 08/15/2024
R thoracentesis 08/17/2024 for 1500 cc-no growth on culture, fluid studies suggestive of transudate
R thoracentesis 08/21/2024 1350cc clear yellow
ANNA
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
Hyponatremia
Paroxysmal atrial fibrillation
Prior PVI (2016)
s/p PFA 08/24/23
Tikosyn stopped during [facility] rehab stay 02/2024 and now on chronic amiodarone
recurrent afib 08/22/2024 and Amio increased to 200 mg bid
Chronic anticoagulation on Eliquis
Takotsubo CM w/recovered EF (2005)
Negative workup for cardiac amyloid
HLD
HTN
MR
Renal nephrosis
Lung Nodule (2021, stable)
Anemia
celiac dz
Echo 05/18/2023: EF 69%, stage II diastolic dysfunction. Moderately dilated right atrium. Mild to moderate MR. Mild TR. PAP 36 mmHg. Small pericardial effusion
Echo 11/25/2023: EF 55-60%, global longitudinal strain is -14.2, stage III diastolic dysfunction, mild MR, dilated left atrium, aortic sclerosis, normal RV, pulmonary artery systolic pressure 45-50 mmHg
Echo 08/16/2024: EF 60-65%, mild cLVH, stage II diastolic dysfunction, mild MR, severe TR, estimated PAP 70 mmHg, small to moderate pericardial effusion w/o evidence of hemodynamic compromise
Plan:
-Weight up 5lbs overnight to 143 lbs (bed scale). Recheck wt on standing scale this am. Changed diuretic to Bumex 1 mg IV bid 08/23/2024, but BP low and only rec'd Bumex 0.5 mg for a.m. dose 08/23. Rec'd BUmex 1 mg IV 08/23 PM. Home diuretic
Torsemide 20 mg daily. Diuretic held for few days this admission for ANNA with creat 1.9 from 1.0 on admission, baseline creatine previously 1-1.2. Creat has ranged 1.4-1.9 since admission, 1.8 past 2 days.
- repeat CXR today 08/24/2024 w/ sm to mod R pleural effusion, sl increased. CXR on 08/21/24 suggested large R pleural effusion and patient had a right-sided thoracentesis for 1.35 L, 08/20/2024
-Previous dry weight 131 lbs at last d/c 05/26/24. Patient weighs 143 lbs on 08/24/24. Wt on admission 151 lbs
-proBNP 8420 08/22/2024 (was 2340 on admission)
--pt went for paracentesis 08/23 but procedure cancelled
-cont IV diuresis, may need to uptitrate Bumex dose, cautiously as BP tolerates. Currently ordered for Bumex 1 mg IV BID, may give 3rd dose today if BP tolerates
-Palliative care was consulted in outpatient setting and patient signed onto their services. Will consult for inpatient evaluation.
-Outpatient dose of spironolactone 12.5 mg MWF on hold due to ANNA
-Outpatient dose of Toprol XL 25 mg daily has been continued
-Patient is not chronically on NILAY/ARB/ARNI due to hypotension
-Patient is not chronically on an SGLT2 inhibitor due to history of UTI
-EF stable by echo this admission
-Previous cardiac amyloid workup was negative
-Syncope on admission in the setting of frequent defecation and orthostasis, no history of syncope. Patient has not previously been orthostatic nor has she required midodrine in the past.
-Patient with known chronic anemia and recent outpatient transfusions have been arranged by GI. Known hypoalbuminemia, albumin given x3 this admission.
-rec'd 1 u prbcs 08/18/2024, and 2 units prbcs in 2 weeks [employer]. Hgb stable 10.6 08/23.
-Patient with known paroxysmal A-fib and went into afib/aflutter on telemetry 08/22. There was concern for pacemaker-mediated tachycardia however on device interrogation this was determined to be afib w rapid V tracking, HRs 120-130s. Pacemaker
upper tracking rate decreased from 130 to 90 bpm 08/23 due to reduce rapid V pacing.
-currently back in NSR 08/24 but having paroxysm of afib and occ PVCs on telemetry, which was personally reviewed
-Device check in the office on 05/22/2024 showed an A-fib burden of 1%, but by most recent device check in the ER on 08/15/2024 atrial arrhythmia burden has increased to 53%.
- Amiodarone was increased to 100 mg bid on admission 08/16/2024 and again to Amio to 200 mg bid 08/23/2024
- Another option would be possible AVJ as patient has PPM in place, but this does not appear to be acute and can be considered for future management options.
-Continue Eliquis 2.5 mg BID (age 79, Cre 1.8, wt 62.7 kg) as weight is generally less than 60 kg
- Patient with acute left foot pain 08/23/2024 and also noted to have new LUE edema.
-vascular consulted:
- LUE US: some left cephalic vein thrombus.
-LE arterial study 08/23/2024: LLE FABIAN 0.49,TBI 0. RLE FABIAN 1.16, but not thought to be accurate
per vascular, thought to have multifactorial ischemic condition of L foot and not thought to be acute limb ischemia. Not thought to be good candidate for angiography/revasularization. Medical optimization advised at this time.
- pt reports L foot pain improved today
HPI: Patient came to [facility] ER yesterday after fall and is now being mated with syncope, clavicle fracture and possible HFpEF with consultation to cardiology. Patient was seen in the office on 07/17/2024 and her proBNP was felt to be acceptable
although her weight was up to 136 lbs with her previous weight being 133 lbs, there were also moderate bilateral pleural effusions. Usual dose of torsemide 20 mg daily was continued and the patient was agreeable to referral for palliative care
assessment. eCW tasks was reviewed by me and patient was given 1 unit PRBCs on 08/02/2024 for Hgb of 7.7 and the Hgb only improved up to 8.2 so a second unit was given on 08/06/24. Remote device check 08/08/2024 had a 7-hour long atrial flutter episode
and patient was already on Eliquis, no other changes, but later that day patient called with weight gain and was told to take additional torsemide 20 mg for a total of 40 mg daily on 08/08/2024 and 08/09/2024 and although she lost 4 lbs she had ongoing
GILLIAM and fatigue. Then patient was preparing for a scheduled capsule endoscopy for her celiac disease by taking Miralax and after swallowing the capsule she felt disoriented, lost her sense of balance and had a fall. Patient was brought to [facility] ER
and admitted for syncope, clavicle fracture and possible acute on chronic HFpEF. Patient was given Lasix 40 mg IV x 1 in the ER. Her Cre on arrival was 1.0 and today is up to 1.4.
Progress Note - Mailroom Coordinator
Subjective
Date of Service: August 24, 2024
wt up overnight
remains on O2
back in NSR
new LUE edema, found to have cephalic vein thrombus
new acute L foot pain- FABIAN with evidence of PAD
Objective
Labs:
08/23/24 07:50
08/23/24 07:50
Labs
Hgb 10.6 g/dL (12.0-16.0) L 08/23/24 07:50
Hct 32.4 % (37.0-47.0) L 08/23/24 07:50
Plt Count 334 10^3/uL (130-400) 08/23/24 07:50
Sodium 133 mmol/L (135-145) L 08/23/24 07:50
Potassium 4.2 mmol/L (3.5-5.1) 08/23/24 07:50
BUN 55 mg/dl (7-17) H 08/23/24 07:50
Creatinine 1.8 mg/dL (0.6-1.0) H 08/23/24 07:50
Glucose 81 mg/dl (70-99) 08/23/24 07:50
Vital Signs and I&O:
Vital Signs
Temp Pulse Resp BP Pulse Ox
97.4 F 88 16 110/57 99
08/24/24 03:30 08/24/24 03:30 08/24/24 03:30 08/24/24 03:30 08/24/24 03:30
Vital Signs
Temp Pulse Resp BP Pulse Ox
97.4 F 88 16 110/57 99
08/24/24 03:30 08/24/24 03:30 08/24/24 03:30 08/24/24 03:30 08/24/24 03:30
Intake & Output
08/22/24 08/23/24 08/24/24 08/25/24
06:59 06:59 06:59 06:59
Intake Total 1440 / 1440 240 / 240 700 / 700
Balance 1440 / 1440 240 / 240 700 / 700
Physical Exam
Physical Exam
GEN: No distress, awake, Ox3, sitting in chair eating breakfast
HEENT: supple, anicteric, mmm
LUNGS:
CV: Reg, S1/S2, 1/6 syst LSB, no murmur
ABD: soft, BS+, + sl distended, nontender
EXT: trace B/L LE edema. Toes B/L cool and bluish, nontender
NEURO: Gross non-focal
SKIN: No rash
[2024-08-24] MEDS: ELIQUIS 2.5 MG PO ×2 (08:28→20:39)
[2024-08-24] MEDS: TOPROL XL 25 MG PO (08:28)
[2024-08-24] MEDS: BUMEX 1 MG IV ×2 (08:28→17:13)
[2024-08-24] MEDS: ZETIA 10 MG PO (08:28)
[2024-08-24] MEDS: PACERONE 200 MG PO ×2 (08:29→20:44)
[2024-08-24] MEDS: VITAMIN C 1000 MG PO (08:29)
[2024-08-24] MEDS: VITAMIN B-12 1000 MCG PO (08:29)
[2024-08-24] MEDS: SENOKOT-S 2 TABLET PO ×2 (08:30→21:07)
[2024-08-24] MEDS: KCL 20 MEQ PO (08:30)
[2024-08-24] MEDS: LIDOCAINE 4% PATCH 2 PATCH TOPICAL (08:30)
[2024-08-24] MEDS: BenGay-Like 1 APPLIC TOPICAL ×4 (08:31→21:08)
[2024-08-24] MEDS: HYDROPHOR 1 APPLIC TOPICAL ×2 (08:31→20:41)
[2024-08-24] MEDS: MIRALAX PO (08:31)
[2024-08-24] MEDS: LIPITOR 10 MG PO (08:33)
[2024-08-24] MEDS: DILAUDID 0.5 MG IV (08:33)
[2024-08-24 08:58] LABS: Hematocrit 30.4 % (37.0-47.0); Hemoglobin 10.2 g/dL (12.0-16.0); Mean Corp Hgb Conc. 33.6 g/dL (33.0-37.0); Mean Corpuscular Volume 100.3 fL (81.0-99.0); Nucleated Red Blood Cells % 0 %; Platelet Count 319 10^3/uL (130-400); Red Cell Dist. Width 20.2 % (11.5-14.5)
[2024-08-24 09:13] LABS: ALT (SGPT) 13 U/L (0-35); AST (SGOT) 26 U/L (14-36); Albumin 1.9 g/dl (3.5-5.0); Alkaline Phosphatase 126 U/L (38-126); Blood Urea Nitrogen 61 mg/dl (7-17); Calcium 7.6 mg/dl (8.4-10.2); Carbon Dioxide 18 mmol/L (22-30); Chloride 107 mmol/L (98-107); Estimated Creatinine Clearance 23 ml/min; Glucose 104 mg/dl (70-99); Magnesium 1.8 mg/dl (1.6-2.3); Potassium 4.0 mmol/L (3.5-5.1); Sodium 130 mmol/L (135-145); Total Protein 5.1 g/dl (6.3-8.2); eGFR 27.96
--- NOTE | 2024-08-24 09:17 | W.PN.HOSP.TC ---
Today's Communication/Plan
-
see bold
Assessment / Plan
Assessment / Plan
HPI: 79F hx pleural effusion HFpEF HTN afib ppm Celiac dz HLD pulm htn here for evaluation syncope with associate clavicle and rib fractures likely d/t fall. Syncope had occurred while taking bowel prep for capsule endoscopy. Patient endorsed
feeling lightheaded/dehydrated prior to event.
#Syncope likely vasovagal (patient was undergoing bowel prep for capsule endoscopy at the time)
Head CT negative
Check daily orthostatic vital signs
Patient has not been able to stand for standing blood pressure
#Acute hypoxic respiratory insufficiency (acute respiratory failure ruled out)
#Left clavicle fracture-sling in place
#Lt 3rd thru 5th rib fractures
#traumatic fractures, likely osteoporosis contributing
Acute hypoxia multifactorial from poor inspiratory effort from rib fractures, chronic right pleural effusion, and abdominal distention from constipation
Thoracic Lumbar XR appreciated multilevel discogenic degenerative disease, small to mod b/l pleural effusions, acute interstitial/alveolar cardiogenic edema, large dense b/l lower lobe airspace consolidations
Appreciate orthopedic surgery input, recommend conservative management with left arm sling for left clavicle fracture
Currently satting 98% on 2 L. States she feels better with the oxygen on. She does not wear oxygen at home.
Continue pain control, incentive spirometry
# Chronic pleural effusions suspected multifactorial from partial hypoalbuminemia, deconditioning, possible malnutrition unclear severity
# Right pleural effusion status post thoracentesis on 05/23/2024 with symptomatic improvement in 1350 cc of fluid removed
# History of recurrent left-sided pleural effusion status post admission to [place] with VATS and pulmonary decortication 01/2024.
# Ascites
Status post right thoracentesis on 08/17, draining 1.5 L, cultures negative for growth, path negative for malignancy, shows inflammation
Status post right thoracentesis 08/19, draining 1.35 L
Cardiology and pulmonology following, changed from IV Lasix to Bumex 1 mg IV twice daily
Pulmonology recommends repeat chest x-ray on Tuesday, 08/27 to see if there is reaccumulation of her right pleural effusion
Started midodrine 5 mg every 4 hours as needed SBP less than 90
Not enough fluid in the abdomen for paracentesis
# Acute on chronic heart failure with preserved ejection fraction
Status post 1 dose of Lasix in the ER
Cardiology following, changed from IV Lasix to Bumex 1 mg IV twice daily
Will need to accept degree of renal insufficiency for adequate diuresis
#ANNA
Suspect cardiorenal syndrome
#Severe constipation
Status post enema 08/21
Continue aggressive bowel regimen
#Peripheral artery disease
#Cyanotic left foot
#Chronic left foot ischemia
Appreciate vascular surgery input, patient has chronic SFA stenosis
Vascular surgery recommends medical optimization, followed by angiography with attempted left SFA angioplasty/stenting
#Left cephalic vein superficial thrombus
Supportive care
# Anemia of chronic disease
Ingested capsule endoscopy prior to coming to hospital, has kit for retrieval when passes. Noted still present in recent thoracic lumbar x-rays
Hemoglobin dipped to 7.8
Status post 1 unit packed red blood cells with appropriate response, hemoglobin now uptrending
Continue to monitor, transfuse as needed
#Hyponatremia
Fluid restrict, trend sodium
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
#History of Takotsubo CM w/recovered EF (2005)
# Paroxysmal atrial fibrillation
# Prior PVI (2016)
# s/p PFA 08/24/23
-continue LEVER TENDER eliquis 2.5 bid
-continue LEVER TENDER metoprolol
-cardiology increased amiodarone to 200 mg twice a day
# Hypothyroidism
-Synthroid continued
-TFT appears to suggest Hypothyroidism uncontrolled, TSH elevated
-pt endorses compliance with synthroid and no recent changes in dose
-repeated TFT show TSH trending down
-cont current synthroid for now, outpt follow up with Endocrinology recommended
#Elevated troponin from nonischemic myocardial injury
#Lung Nodule
# Celiac disease
gluten free diet
#Moderate portal hypertensive gastropathy
PT/OT appreciated SNF rehab
DVT PPX on Eliquis
Code status - full code
Updated son on phone 08/21
Called son 08/22, he did not hand picker
Updated [id number] at bedside 08/23
Updated granddaughter in law at bedside 08/24
Patient with multiple comorbidities�palliative care consulted
Disposition�short-term rehab at [facility] when stable
Total time spent to see the patient on the floor, examine the patient, review data and lab results, discuss treatment plan with patient, nursing staff around 52 minutes.
Physical Exam
General: no acute distress appears comfortable
HEENT: NormoCephalic, Moist mucous membranes and Atraumatic
Respiratory: Bibasilar crackles
Cardiac: S1/S2 and Regular Rhythm; No Murmur or Rub
GI: Soft, Non Tender, abd distended and Normal Bowel Sounds
Musculoskeletal: No Clubbing, No Cyanosis, Left arm with edema, Left arm in sling
Bilateral lower extremities edema +1
Skin: No Rash
Neuro: AO x 3 conversant coherent
Psych: Calm
Anticipated Discharge: > 48 hours
Subjective/Interval History
-
Date of Service: August 24, 2024
Patient continues to feel short of breath, reports same as prior. She continues to have left rib pain. She was nauseous yesterday, no vomiting. No chest pain, no fever.
Objective Data
-
Labs:
Laboratory Results
08/24/24
08:48
WBC 7.4
Hgb 10.2 L
Hct 30.4 L
Plt Count 319
Sodium 130 L
Potassium 4.0
Chloride 107
Carbon Dioxide 18 L
BUN 61 H
Creatinine 1.8 H
Glucose 104 H
Calcium 7.6 L
Total Bilirubin 0.4
AST 26
ALT 13
Alkaline Phosphatase 126
Vital Signs:
Vital Signs
Temp Pulse Resp BP Pulse Ox
97.6 F 78 20 114/64 98
08/24/24 07:00 08/24/24 08:28 08/24/24 07:00 08/24/24 08:28 08/24/24 07:00
I&O
08/23/24 08/24/24 08/25/24
06:59 06:59 06:59
Intake Total 240 / 240 700 / 700
Balance 240 / 240 700 / 700
[2024-08-24] MEDS: ROXICODONE 10 MG PO ×2 (11:08→23:38)
[2024-08-24] MEDS: DUPHALAC/CHRONULAC 20 GRAMS PO (12:09)
--- NOTE | 2024-08-24 12:24 | W.PN.PUL3 ---
Today's Communication / Plan
-
- Pulmonary team will see the patient again on 08/26, please call earlier if needed
- Follow-up chest x-ray 08/27 to evaluate right pleural effusion
Assessment
-
Patient is not 79-year-old female who was admitted to the hospital about a week ago. Patient had an endoscopy procedure performed following which she had a syncopal episode and an unwitnessed fall. Patient was brought to the emergency room and
further imaging was suggestive of a displaced fracture of the lateral clavicle as well as minimal degenerative changes about the shoulder. Patient also noted to have lateral left 3rd through 5th rib fracture.
Patient was noted to have a large right-sided pleural effusion and had a thoracentesis performed on 08/17. Fluid study was suggestive of transudate. Patient has been on diuretics since. Over next few days patient had reaccumulation and on 08/21,
she had another thoracentesis, right side performed with more than 1 L of transudative fluid removed. Pulmonary consultation was requested for further input. Patient had similar recurrent challenging left-sided pleural effusions in the past which
were managed with an indwelling pleural catheter placement in 2023, subsequently she had a VATS procedure performed and in indwelling pleural catheter was removed.
In view of recurrent right-sided pleural effusion, pulmonary consultation was requested for further input.
#1. Recurrent right-sided pleural effusion, chronic (transudative)
- Fluid analysis is suggestive of a transudate with very low pleural fluid protein and LDH
- Etiology appears to be underlying congestive heart failure as well as hypoalbuminemia. Worsening pulmonary hypertension can also contribute towards pleural effusions. Ultrasound abdomen not suggestive of cirrhosis. Portal gastropathy noted on
endoscopy however.
- Right-sided pleural effusion has been stable for a long time with recent exacerbation requiring thoracentesis x 2 during this hospitalization
- Thoracentesis 08/21, 1350 cc of clear yellow pleural fluid removed, thoracentesis 08/17, 1500 cc of straw-colored pleural fluid evacuated (Cytology negative)
- Continue IV diuresis and spironolactone as tolerated
- Will favor conservative management for now, low-salt diet, and diuresis as tolerated and as needed thoracentesis
- Once patient is euvolemic and recovers from current complications, if she continues to need recurrent thoracentesis, we can reconsider indwelling pleural catheter placement.
- Consider palliative care consult. Patient is cachectic appearing, appears malnourished, has worsening pulmonary hypertension and at risk of additional complications when subjected to invasive procedures.
- Increase activity as tolerated, incentive spirometry/Acapella flutter valve
-Follow-up chest x-ray 08/24, minimally increased right pleural effusion overall still fairly small. Patient does not have much respiratory symptoms and I think we can wait for now. Will repeat chest x-ray on 08/2021 and see if patient needs
thoracentesis.
#2. History of recurrent left-sided pleural effusion, s/p multiple thoracentesis
- S/p indwelling pleural catheter placement in 2023, subsequently removed after she had VATS decortication on the left side.
- Fluid analysis has been mostly transudative with negative cytology.
#3. Pulmonary hypertension.
- Suspect group II with underlying heart failure with preserved ejection fraction
- Recent echo was in the setting of large pleural effusion, volume overload which could have confounded the results
- Continue to optimize volume status, O2 support to keep saturations above 90%
- Cardiology service on case
- Poor prognosis in the setting of worsening pulmonary hypertension, estimated pulmonary artery systolic pressure 70 now compared to 45-50 in the past.
#4. Left rib fracture, 3rd through 5th.
- Traumatic, after a fall, associated with left clavicle fracture as well.
- Continue incentive spirometry, pain control, activity as tolerated.
#5. Acute hypoxic respiratory failure.
- This appears to be multifactorial in the setting of worsening pleural effusion, pulmonary congestion due to CHF, pulmonary hypertension as well as fall with left multiple rib fracture.
- Continue to optimize volume, IV diuresis, O2 support as needed to keep saturations above 90%. Incentive spirometry, pain control.
- Patient is chronically anticoagulated with Eliquis, making pulmonary embolism less likely.
Conditions present [employer]
Celiac Disease 1975
Takotsobu cardiomyopathy-recovered EF
s/p CARDIOGENIC SHOCK 04/08/05 EF 20% IMPROVED TO 50 % 04/09/[address]
Former smoker >20 pack years, quit 30 years ago
Hiatal hernia
Lyme disease
Carotid Disease
Hypertension
PANCREATITIS 2005
Irritable bowel disease
CHF
SVT/Paroxysmal atrial fibrillation s/p Cardioversion 06/18/2016
Endometrial polyps s/p D & C, polypectomy
HYPERLIPIDEMIA - MIXED
Fracture right foot/ankle in Feb 2018
Lymphocytic Colitis
Ambulatory dysfunction/Balance issues
Inguinal herniographies xs 2 02/25/2011
Vein removal in [place] inner foot 2020
Bilateral cataract surgeries 2020
History of pancreatitis 2005
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
Discussed with primary team, left foot toe appear bit cyanotic. Unclear if this is chronic versus subacute. Currently workup in process.
Total time spent on this consultation/encounter __52__ minutes which includes review of history, physical exam, medications, laboratory data, personal review of imaging, extensive review of outpatient records, discussion with care team and
respiratory therapy.
Data:
ECHO 08/2024: Left ventricle is small in size. Normal left ventricular systolic function.
Left ventricular ejection fraction is 60-65% by volumetric assessment. Normal
regional wall motion. Mild concentric left ventricular hypertrophy. Stage II
diastolic dysfunction suggestive of abnormal relaxation and increased filling
pressures.
Normal right ventricular size and function. Pacer wire seen in right ventricle.
Mild mitral regurgitation.
Aortic sclerosis without stenosis.
Severe tricuspid regurgitation. Estimated pulmonary artery pressure of 70 mmHg
assuming a right atrial pressure of 3 mmHg.
Small to moderate pericardial effusion without evidence of hemodynamic
compromise. Pleural effusion present.
Compared to prior study of 11/25/2023:
Tricuspid regurgitation has worsened from moderate to severe
Pulmonary artery systolic pressure previously estimated at 45-50 mmHg and is
now 70 mmHg
Pericardial effusion is larger, previously small in size
Subjective Data
-
Date of Service:
Date of Service: August 24, 2024
Subjective:
Patient sitting in chair on supplemental oxygen, not in any acute distress.
Review of Systems
Genitourinary: Other (Does not report any worsening dyspnea, has mild cough. Otherwise no new symptoms reported)
Objective Data
Data Reviewed
Vital Signs / I&O / Oxygen:
Vital Signs
Temp Pulse Resp BP Pulse Ox
97.7 F 71 18 122/59 98
08/24/24 11:00 08/24/24 11:00 08/24/24 11:00 08/24/24 11:00 08/24/24 11:00
Intake and Output
08/23/24 08/24/24 08/25/24
06:59 06:59 06:59
Intake Total 240 / 240 700 / 700
Balance 240 / 240 700 / 700
SaO2 98
Nasal Cannula flow liters per 2
minute
Physical Exam
General: Comfortable
HEENT: Normocephalic
Cardiovascular: S1-S2 and Peripheral Edema (Trace pedal edema, left arm swelling.)
Respiratory: Rhonchi (Right lower lobe posteriorly few inspiratory Rales. Not significantly changed over the last 48 hours)
GI: Soft and Non Distended
Neurology: Awake
Skin: Warm
Labs/Micro/Reports
Lab Data
08/24/24 08:48
08/24/24 08:48
Microbiology
08/21/24 10:39 Pleural Fluid Body Fluid Culture - Final
No Growth After 72 Hours
08/21/24 10:39 Pleural Fluid Gram Stain - Final
--- NOTE | 2024-08-24 12:36 | CM ---
indicates that pt will be here this weekend.
On oxygen 2 liters NC Pox 98%.She does not have home oxygen.
Pain meds as needed.
Family and pt indicate wanting [facility] [place].
Please check with [facility] [place] for a bed availability.
[facility]
report [phone]
fax [phone]
PLAN To [facility] [place] .
--- NOTE | 2024-08-24 14:38 | PN.CDI ---
CDI
- -
CDI:
Physician Documentation Request
Admit Date: 08/15/24 18:37
Dear Doctor Do,
Pulmonary progress notes include a diagnosis of acute hypoxic respiratory failure 'This appears to be multifactorial in the setting of worsening pleural effusion, pulmonary congestion due to CHF, pulmonary hypertension as well as fall with left
multiple rib fracture.'
Hospitalist progress notes state 'Acute hypoxia multifactorial from poor inspiratory effort from rib fractures, chronic right pleural effusion, and abdominal distention from constipation'
In an attempt to clarify potentially conflicting documentation, please clarify the patient's respiratory status:
Acute respiratory failure
Hypoxia
Other
Additional information for Respiratory Failure:
Recognized criteria for Respiratory Failure (Source: Jhoana Galindo. 2018January 24.
Documentation tips: Acute Respiratory Failure, The Hospitalist.)
ABGs: (1 or more) Symptoms
1. p)2 <60 or RA SPO2 <91% on RA 1. Tachypnea, SOB, dyspnea
2. pCO2 >45 and pH <7.35 2. Use of accessory muscles
3. pO2 decrease of pCO2 increase by 3. Pallor or cyanosis
10 mmHg from baseline if known 4. Anxiety or restlessness
4. P/F Ratio (pO2/FiO2)nless than 300 5. Unable to speak in full sentences
Use of terms such as suspected, likely, concern for, or probable (associated with a specific diagnosis that is being evaluated, monitored, or treated as if it exists) are acceptable and can be coded in the inpatient setting, when documented at the
time of discharge.
Thank you,
Leonor Pugh RN, BSN
CDI Specialist
tiger text
Please use your independent medical judgment in providing your response.
[2024-08-24] MEDS: AYR SALINE NASAL GEL 1 APPLIC NASAL (20:40)
[2024-08-24] MEDS: MIRALAX 17 GRAMS PO (20:44)
[2024-08-24] MEDS: REMOVE LIDOCAINE PATCH 2 PATCH REMOVE (20:45)
[2024-08-24] MEDS: ASPIR LOW (ENTERIC COATED) 81 MG PO (21:07)
--- NOTE | 2024-08-24 23:30 | PTCARENOTE ---
Resumed care of pt sitting up in bed AAOx3. HR in the 80's in NSR with first degree heart block on the monitor. POX 97% on 2LO2 NC. B/L base crackles noted. Pt GILLIAM, tachypneic, with occasional dry cough. Pt complaining of abd discomfort/ distention.
Pt requesting to use the BSC. Pt assisted to sitting position, Pt attempted to get OOBx2 RN without success, Pt only able to stand briefly, legs too weak at this time. Pt assisted back to bed, and placed on bedpan. Pt moved bowels, loose light
brown, no capsule noted. Monica care provided. Pt positioned per comfort. Legs elevated on pillows. B/L LE tender to touch. B/L heel foams in place. Left UE sling in place. Oral care provided. Pain medication administered as ordered. Call carreon in
reach, will continue to monitor.
[2024-08-25] VITALS (8 sets, daily range): BP systolic 109–135; BP diastolic 57–74; PULSE 74–81; O2SAT 96–97; BMI 21.7
[2024-08-25] MEDS: SYNTHROID 150 MCG PO (05:43)
[2024-08-25] MEDS: TYLENOL 650 MG PO ×5 (05:43→20:04)
[2024-08-25 06:59] LABS: Hematocrit 30.2 % (37.0-47.0); Hemoglobin 10.1 g/dL (12.0-16.0); Mean Corp Hgb Conc. 33.4 g/dL (33.0-37.0); Mean Corpuscular Volume 100.0 fL (81.0-99.0); Platelet Count 337 10^3/uL (130-400); Red Cell Dist. Width 19.5 % (11.5-14.5)
--- NOTE | 2024-08-25 07:00 | W.PN.HOSP.TC ---
Today's Communication/Plan
-
cont diuresis as per cardio
wound care
Pain control
PT/OT
wean O2 supplementation as tolerated
monitor renal function
Assessment / Plan
Assessment / Plan
Physical Exam
General: no acute distress appears comfortable
HEENT: NormoCephalic, Moist mucous membranes and Atraumatic
Respiratory: Bibasilar crackles
Cardiac: S1/S2 and Regular Rhythm; No Murmur or Rub
GI: Soft, Non Tender, abd distended and Normal Bowel Sounds
Musculoskeletal: No Clubbing, No Cyanosis, Left arm with edema, Left arm in sling
Bilateral lower extremities edema +1
Skin: No Rash
Neuro: AO x 3 conversant coherent
Psych: Calm
HPI: 79F hx pleural effusion HFpEF HTN afib ppm Celiac dz HLD pulm htn here for evaluation syncope with associate clavicle and rib fractures likely d/t fall. Syncope had occurred while taking bowel prep for capsule endoscopy. Patient endorsed
feeling lightheaded/dehydrated prior to event.
#Syncope likely vasovagal (patient was undergoing bowel prep for capsule endoscopy at the time)
Head CT negative
Monitor daily orthostatic vital signs
Patient has not been able to stand for standing blood pressure
#Acute hypoxic respiratory insufficiency (acute respiratory failure ruled out)
#Left clavicle fracture-sling in place
#Lt 3rd thru 5th rib fractures
#traumatic fractures, likely osteoporosis contributing
Acute hypoxia multifactorial from poor inspiratory effort from rib fractures, chronic right pleural effusion, and abdominal distention from constipation
Thoracic Lumbar XR appreciated multilevel discogenic degenerative disease, small to mod b/l pleural effusions, acute interstitial/alveolar cardiogenic edema, large dense b/l lower lobe airspace consolidations
Appreciate orthopedic surgery input, recommend conservative management with left arm sling for left clavicle fracture
Remains Oxygen dependent nasal cannula throughout hospitalization, [employer] patient's baseline was room air
Continue pain control, incentive spirometry
# Chronic pleural effusions suspected multifactorial from partial hypoalbuminemia, deconditioning, possible malnutrition unclear severity
# Right pleural effusion status post thoracentesis on 05/23/2024 with symptomatic improvement in 1350 cc of fluid removed
# History of recurrent left-sided pleural effusion status post admission to [place] with VATS and pulmonary decortication 01/2024.
# Ascites
Status post right thoracentesis on 08/17, draining 1.5 L, cultures negative for growth, path negative for malignancy, shows inflammation
Status post right thoracentesis 08/19, draining 1.35 L
Cardiology and pulmonology following, changed from IV Lasix to Bumex 1 mg IV twice daily
Pulmonology recommends repeat chest x-ray on Tuesday, 08/27 to see if there is reaccumulation of her right pleural effusion
Not enough fluid in the abdomen for paracentesis
# Acute on chronic heart failure with preserved ejection fraction
Status post 1 dose of Lasix in the ER
Cardiology following, changed from IV Lasix to Bumex 1 mg IV twice daily
Will need to accept degree of renal insufficiency for adequate diuresis
#ANNA
Possibly cardiorenal syndrome, less likely given persistent ANNA despite aggressive diuresis
#Severe constipation
#Ingested Capsule endoscopy [employer] has yet to pass
Status post enema 08/21
Continue aggressive bowel regimen
#Peripheral artery disease
#Cyanotic left foot
#Chronic left foot ischemia
Appreciate vascular surgery input, patient has chronic SFA stenosis
Vascular surgery recommends medical optimization, followed by angiography with attempted left SFA angioplasty/stenting
#Left cephalic vein superficial thrombus
Supportive care
# Anemia of chronic disease
Ingested capsule endoscopy prior to coming to hospital, has kit for retrieval when passes. Noted still present in recent thoracic lumbar x-rays
Hemoglobin dipped to 7.8
Status post 1 unit packed red blood cells with appropriate response, Hgb has remained stable since
Continue to monitor, transfuse as needed
#Hyponatremia
Fluid restrict, trend sodium
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
#History of Takotsubo CM w/recovered EF (2005)
# Paroxysmal atrial fibrillation
# Prior PVI (2017)
# s/p PFA 08/24/23
-continue [employer] eliquis 2.5 bid
-continue [employer] metoprolol
-cardiology increased amiodarone to 200 mg twice a day, cont
# Hypothyroidism
-Synthroid continued
-TFT appears to suggest Hypothyroidism uncontrolled, TSH elevated
-pt endorses compliance with synthroid and no recent changes in dose
-repeated TFT show TSH trending down
-cont current synthroid for now, outpt follow up with Endocrinology recommended
#Elevated troponin from nonischemic myocardial injury
#Lung Nodule
# Celiac disease
gluten free diet
#Moderate portal hypertensive gastropathy
PT/OT appreciated SNF rehab
DVT PPX on Eliquis
Code status - full code
Patient with multiple comorbidities�palliative care consulted
Disposition�short-term rehab at [facility] when stable
I spent a total of 45 minutes with the patient or on the floor. More than 50% of this time involved counseling and coordination of care.
Anticipated Discharge: > 48 hours
Subjective/Interval History
-
Date of Service: August 25, 2024
No acute distress, resting comfortably in bed. Pain relatively well controlled with current pain regimen. Remains oxygen dependent.
Objective Data
-
Labs:
Laboratory Results
08/25/24
06:39
WBC 8.0
Hgb 10.1 L
Hct 30.2 L
Plt Count 337
Sodium Pending
Potassium Pending
Chloride Pending
Carbon Dioxide Pending
BUN Pending
Creatinine Pending
Glucose Pending
Calcium Pending
Vital Signs:
Vital Signs
Temp Pulse Resp BP Pulse Ox
97.4 F 70 17 128/57 98
08/25/24 03:26 08/25/24 03:26 08/25/24 03:26 08/25/24 03:26 08/25/24 03:26
I&O
08/24/24 08/25/24 08/26/24
06:59 06:59 06:59
Intake Total 700 / 700 480 / 480
Balance 700 / 700 480 / 480
[2024-08-25 07:28] LABS: Blood Urea Nitrogen 64 mg/dl (7-17); Calcium 7.6 mg/dl (8.4-10.2); Carbon Dioxide 20 mmol/L (22-30); Chloride 105 mmol/L (98-107); Estimated Creatinine Clearance 22 ml/min; Glucose 91 mg/dl (70-99); Magnesium 1.6 mg/dl (1.6-2.3); Potassium 3.4 mmol/L (3.5-5.1); Sodium 130 mmol/L (135-145); eGFR 26.20
--- NOTE | 2024-08-25 07:36 | W.PN.CARDCBS ---
Addendum entered and electronically signed by David Ayoub MD 08/25/24 11:07:
Patient seen and examined
Agree with PLY SPLICER note and assessment
Agree with PLY SPLICER plan
����Physical Exam
���������������������General:��no apparent distress, not acutely ill
���������������������������Neck:��supple. no meningeal signs. normal psoterior pharynx
������������������������
���������������������������Heart:��s1/s2 regular rate and rhythm, no murmur. equal radial pulses.
��������������������������Lungs: ��no acute respiratory distress. clear bilaterally
����������������������Abdomen:�normal bowel sounds. not tender. no CVAT
��������������������������Neuro:��alert and oriented. no focal neurological deficits
������������������������������Skin: ��no rash
�����������������������Psychiatric:�well kept. interactive and cooperative
�����������������������Extremities:��no edema. no calf tenderness. negative homans. good distal pulses
PCP: Stella Sutherland PA-C
Spot Welder: Dr. Kiera Diaz
Impression:
Admitted with fall, clavicle fracture and possible acute HF 08/15/24
Syncope
Fall and left clavicle fracture
Acute on chronic HFpEF
Recurrent pleural effusion
s/p Left Asept pleural catheter placement 11/29/23, removed after admission to [place] with VATS and pulmonary decortication 01/2024
Small to moderate B/L pleural effusions by CXR 08/15/2024
R thoracentesis 08/17/2024 for 1500 cc-no growth on culture, fluid studies suggestive of transudate
R thoracentesis 08/21/2024 1350cc clear yellowAKI
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
Hyponatremia
Paroxysmal atrial fibrillation
Prior PVI (2016)
s/p PFA 08/24/23
Tikosyn stopped during [facility] rehab stay 02/2024 and now on chronic amiodarone
recurrent afib 08/22/2024 and Amio increased to 200 mg bidChronic anticoagulation on Eliquis
Takotsubo CM w/recovered EF (2005)
Negative workup for cardiac amyloid
HLD
HTN
MR
Renal nephrosis
Lung Nodule (2021, stable)
Anemia
celiac dz
Echo 05/18/2023: EF 69%, stage II diastolic dysfunction. Moderately dilated right atrium. Mild to moderate MR. Mild TR. PAP 36 mmHg. Small pericardial effusion
Echo 11/25/2023: EF 55-60%, global longitudinal strain is -14.2, stage III diastolic dysfunction, mild MR, dilated left atrium, aortic sclerosis, normal RV, pulmonary artery systolic pressure 45-50 mmHg
Echo 08/16/2024: EF 60-65%, mild cLVH, stage II diastolic dysfunction, mild MR, severe TR, estimated PAP 70 mmHg, small to moderate pericardial effusion w/o evidence of hemodynamic compromise
Plan:
-Weight 134 lbs, down 5lbs overnight, down 17 lbs since admit on 08/15. Continues Bumex 1 mg IV bid. Home diuretic Torsemide 20 mg daily. Diuretic held for few days this admission for ANNA with creat 1.9 from 1.0 on admission, baseline creatine
previously 1-1.2. Creat has ranged 1.4-1.9 since admission, up to 1.9 today with good diuresis overnight
- repeat CXR 08/24/2024 w/ sm to mod R pleural effusion, sl increased. CXR on 08/21/24 suggested large R pleural effusion and patient had a right-sided thoracentesis for 1.35 L, 08/20/2024
�For repeat chest x-ray per pulmonary on 08/26
-Previous dry weight 131 lbs at last d/c 05/26/24.
-proBNP 8420 08/22/2024 (was 2340 on admission)
--paracentesis 08/23 but procedure cancelled
-cont IV diuresis with Bumex 1 mg bid. I suspect transition to oral diuretic August 27
-Palliative care was consulted in outpatient setting and patient signed onto their services. Consulted 08/24 for inpatient evaluation-they anticipate seeing her on 08/27
-Outpatient dose of spironolactone 12.5 mg MWF on hold due to ANNA
-Outpatient dose of Toprol XL 25 mg daily has been continued
-Patient is not chronically on NILAY/ARB/ARNI due to hypotension/now with CKD
-Patient is not chronically on an SGLT2 inhibitor due to history of UTI
-EF stable by echo this admission
-Previous cardiac amyloid workup was negative
-Syncope on admission in the setting of frequent defecation and orthostasis, no history of syncope. Patient has not previously been orthostatic nor has she required midodrine in the past.
-Patient with known chronic anemia and recent outpatient transfusions have been arranged by GI. Known hypoalbuminemia, albumin given x3 this admission.
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 Hgb stable 10.1 08/25.
-Patient with known paroxysmal A-fib and went into afib/aflutter on telemetry 08/22. There was concern for pacemaker-mediated tachycardia however on device interrogation this was determined to be afib w rapid V tracking, HRs 120-130s. Pacemaker
upper tracking rate decreased from 130 to 90 bpm 08/23 due to reduce rapid V pacing.
-currently back in NSR 08/24 but having paroxysm of afib and occ PVCs on telemetry, which was personally reviewed
-Device check in the office on 05/22/2024 showed an A-fib burden of 1%, but by most recent device check in the ER on 08/15/2024 atrial arrhythmia burden has increased to 53%.
- Amiodarone was increased to 100 mg bid on admission 08/16/2024 and again to Amio to 200 mg bid 08/23/2024
- Another option would be possible AVJ as patient has PPM in place, but this does not appear to be acute and can be considered for future management options.
-Continue Eliquis 2.5 mg BID (age 79, Cre 1.8, wt 62.7 kg) as weight is generally less than 60 kg
- Telemetry personally reviewed: Normal sinus rhythm 70s with occasional V pacing.
- Patient with acute left foot pain 08/23/2024 and also noted to have new LUE edema.
-vascular consulted:
- LUE US: some left cephalic vein thrombus.
-LE arterial study 08/23/2024: LLE FABIAN 0.49,TBI 0. RLE FABIAN 1.16, but not thought to be accurate
per vascular, thought to have multifactorial ischemic condition of L foot and not thought to be acute limb ischemia. Not thought to be good candidate for angiography/revasularization. Medical optimization advised at this time.
- pt reports L foot pain improved today
Original Note:
Today's Communication / Plan
-
Continue IV diuresis but may be able to transition to oral in next 24 to 48 hours as she is approaching dry weight
Replete K-I ordered
Impression / Plan
-
PCP: Stella Sutherland PA-C
Spot Welder: Dr. Kiera Diaz
Impression:
Admitted with fall, clavicle fracture and possible acute HF 08/15/24
Syncope
Fall and left clavicle fracture
Acute on chronic HFpEF
Recurrent pleural effusion
s/p Left Asept pleural catheter placement 11/29/23, removed after admission to [place] with VATS and pulmonary decortication 01/2024
Small to moderate B/L pleural effusions by CXR 08/15/2024
R thoracentesis 08/17/2024 for 1500 cc-no growth on culture, fluid studies suggestive of transudate
R thoracentesis 08/21/2024 1350cc clear yellow
ANNA
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
Hyponatremia
Paroxysmal atrial fibrillation
Prior PVI (2016)
s/p PFA 08/24/23
Tikosyn stopped during [facility] rehab stay 02/2024 and now on chronic amiodarone
recurrent afib 08/22/2024 and Amio increased to 200 mg bid
Chronic anticoagulation on Eliquis
Takotsubo CM w/recovered EF (2005)
Negative workup for cardiac amyloid
HLD
HTN
MR
Renal nephrosis
Lung Nodule (2021, stable)
Anemia
celiac dz
Echo 05/18/2023: EF 69%, stage II diastolic dysfunction. Moderately dilated right atrium. Mild to moderate MR. Mild TR. PAP 36 mmHg. Small pericardial effusion
Echo 11/25/2023: EF 55-60%, global longitudinal strain is -14.2, stage III diastolic dysfunction, mild MR, dilated left atrium, aortic sclerosis, normal RV, pulmonary artery systolic pressure 45-50 mmHg
Echo 08/16/2024: EF 60-65%, mild cLVH, stage II diastolic dysfunction, mild MR, severe TR, estimated PAP 70 mmHg, small to moderate pericardial effusion w/o evidence of hemodynamic compromise
Plan:
-Weight 134 lbs, down 5lbs overnight, down 17 lbs since admit on 08/15. Continues Bumex 1 mg IV bid. Home diuretic Torsemide 20 mg daily. Diuretic held for few days this admission for ANNA with creat 1.9 from 1.0 on admission, baseline creatine
previously 1-1.2. Creat has ranged 1.4-1.9 since admission, up to 1.9 today with good diuresis overnight
- repeat CXR 08/24/2024 w/ sm to mod R pleural effusion, sl increased. CXR on 08/21/24 suggested large R pleural effusion and patient had a right-sided thoracentesis for 1.35 L, 08/20/2024
�For repeat chest x-ray per pulmonary on 08/26
-Previous dry weight 131 lbs at last d/c 05/26/24.
-proBNP 8420 08/22/2024 (was 2340 on admission)
--paracentesis 08/23 but procedure cancelled
-cont IV diuresis with Bumex 1 mg bid
-Palliative care was consulted in outpatient setting and patient signed onto their services. Consulted 08/24 for inpatient evaluation-they anticipate seeing her on Mon 08/27
-Outpatient dose of spironolactone 12.5 mg MWF on hold due to ANNA
-Outpatient dose of Toprol XL 25 mg daily has been continued
-Patient is not chronically on NILAY/ARB/ARNI due to hypotension/now with CKD
-Patient is not chronically on an SGLT2 inhibitor due to history of UTI
-EF stable by echo this admission
-Previous cardiac amyloid workup was negative
-Syncope on admission in the setting of frequent defecation and orthostasis, no history of syncope. Patient has not previously been orthostatic nor has she required midodrine in the past.
-Patient with known chronic anemia and recent outpatient transfusions have been arranged by GI. Known hypoalbuminemia, albumin given x3 this admission.
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 Hgb stable 10.1 08/25.
-Patient with known paroxysmal A-fib and went into afib/aflutter on telemetry 08/22. There was concern for pacemaker-mediated tachycardia however on device interrogation this was determined to be afib w rapid V tracking, HRs 120-130s. Pacemaker
upper tracking rate decreased from 130 to 90 bpm 08/23 due to reduce rapid V pacing.
-currently back in NSR 08/24 but having paroxysm of afib and occ PVCs on telemetry, which was personally reviewed
-Device check in the office on 05/22/2024 showed an A-fib burden of 1%, but by most recent device check in the ER on 08/15/2024 atrial arrhythmia burden has increased to 53%.
- Amiodarone was increased to 100 mg bid on admission 08/16/2024 and again to Amio to 200 mg bid 08/23/2024
- Another option would be possible AVJ as patient has PPM in place, but this does not appear to be acute and can be considered for future management options.
-Continue Eliquis 2.5 mg BID (age 79, Cre 1.8, wt 62.7 kg) as weight is generally less than 60 kg
- Telemetry personally reviewed: Normal sinus rhythm 70s with occasional V pacing.
- Patient with acute left foot pain 08/23/2024 and also noted to have new LUE edema.
-vascular consulted:
- LUE US: some left cephalic vein thrombus.
-LE arterial study 08/23/2024: LLE FABIAN 0.49,TBI 0. RLE FABIAN 1.16, but not thought to be accurate
per vascular, thought to have multifactorial ischemic condition of L foot and not thought to be acute limb ischemia. Not thought to be good candidate for angiography/revasularization. Medical optimization advised at this time.
- pt reports L foot pain improved today
HPI: Patient came to [facility] ER yesterday after fall and is now being mated with syncope, clavicle fracture and possible HFpEF with consultation to cardiology. Patient was seen in the office on 07/17/2024 and her proBNP was felt to be acceptable
although her weight was up to 136 lbs with her previous weight being 133 lbs, there were also moderate bilateral pleural effusions. Usual dose of torsemide 20 mg daily was continued and the patient was agreeable to referral for palliative care
assessment. eCW tasks was reviewed by me and patient was given 1 unit PRBCs on 08/02/2024 for Hgb of 7.7 and the Hgb only improved up to 8.2 so a second unit was given on 08/06/24. Remote device check 08/08/2024 had a 7-hour long atrial flutter episode
and patient was already on Eliquis, no other changes, but later that day patient called with weight gain and was told to take additional torsemide 20 mg for a total of 40 mg daily on 08/08/2024 and 08/09/2024 and although she lost 4 lbs she had ongoing
GILLIAM and fatigue. Then patient was preparing for a scheduled capsule endoscopy for her celiac disease by taking Miralax and after swallowing the capsule she felt disoriented, lost her sense of balance and had a fall. Patient was brought to [facility] ER
and admitted for syncope, clavicle fracture and possible acute on chronic HFpEF. Patient was given Lasix 40 mg IV x 1 in the ER. Her Cre on arrival was 1.0 and today is up to 1.4.
Progress Note - Spot Welder
Subjective
Date of Service: August 25, 2024
Approaching dry weight
Remains on O2
Objective
Labs:
08/25/24 06:39
08/25/24 06:39
Labs
Hgb 10.1 g/dL (12.0-16.0) L 08/25/24 06:39
Hct 30.2 % (37.0-47.0) L 08/25/24 06:39
Plt Count 337 10^3/uL (130-400) 08/25/24 06:39
Sodium 130 mmol/L (135-145) L 08/25/24 06:39
Potassium 3.4 mmol/L (3.5-5.1) L 08/25/24 06:39
BUN 64 mg/dl (7-17) H 08/25/24 06:39
Creatinine 1.9 mg/dL (0.6-1.0) H 08/25/24 06:39
Glucose 91 mg/dl (70-99) 08/25/24 06:39
Vital Signs and I&O:
Vital Signs
Temp Pulse Resp BP Pulse Ox
97.4 F 70 17 128/57 98
08/25/24 03:26 08/25/24 03:26 08/25/24 03:26 08/25/24 03:26 08/25/24 03:26
Vital Signs
Temp Pulse Resp BP Pulse Ox
97.4 F 70 17 128/57 98
08/25/24 03:26 08/25/24 03:26 08/25/24 03:26 08/25/24 03:26 08/25/24 03:26
Intake & Output
08/23/24 08/24/24 08/25/24 08/26/24
06:59 06:59 06:59 06:59
Intake Total 240 / 240 700 / 700 480 / 480
Balance 240 / 240 700 / 700 480 / 480
Physical Exam
Physical Exam
GEN: No distress, awake, Ox3
HEENT: supple, anicteric, mmm
LUNGS: Decreased at bases
CV: Reg, S1/S2, 1/6 syst LSB
ABD: soft, BS+, NT/ND
EXT: Trace lower extremity edema, improved
NEURO: Gross non-focal
SKIN: No rash
[2024-08-25] MEDS: LIDOCAINE 4% PATCH 2 PATCH TOPICAL (08:28)
[2024-08-25] MEDS: ROXICODONE 5 MG PO (08:29)
[2024-08-25] MEDS: VITAMIN B-12 1000 MCG PO (08:29)
[2024-08-25] MEDS: ZETIA 10 MG PO (08:29)
[2024-08-25] MEDS: SENOKOT-S 2 TABLET PO ×2 (08:29→20:04)
[2024-08-25] MEDS: VITAMIN C 1000 MG PO (08:29)
[2024-08-25] MEDS: KCL 20 MEQ PO ×2 (08:30→09:33)
[2024-08-25] MEDS: TOPROL XL 25 MG PO (08:30)
[2024-08-25] MEDS: ELIQUIS 2.5 MG PO ×2 (08:30→20:04)
[2024-08-25] MEDS: PACERONE 200 MG PO ×2 (08:30→20:04)
[2024-08-25] MEDS: BenGay-Like 1 APPLIC TOPICAL ×4 (08:30→22:01)
[2024-08-25] MEDS: MIRALAX 17 GRAMS PO ×2 (08:30→20:04)
[2024-08-25] MEDS: BUMEX 1 MG IV ×2 (08:31→16:29)
[2024-08-25] MEDS: HYDROPHOR 1 APPLIC TOPICAL ×2 (08:32→20:09)
[2024-08-25] MEDS: ZOFRAN 4 MG IV (11:16)
--- NOTE | 2024-08-25 11:23 | PTCARENOTE ---
Pt c/o nausea after breakfast, and with PT. Zofran given as ordered. Pt unable to tolerate oob with PT/OT, assisted x 2 back to bed
[2024-08-25] MEDS: ROXICODONE 10 MG PO (12:36)
[2024-08-25] MEDS: DUPHALAC/CHRONULAC 20 GRAMS PO (12:36)
--- NOTE | 2024-08-25 15:01 | W.PN.UPDATE ---
Update Note
Progress Note Update
Seen and evaluated. Still notes left foot pain, mainly at the heel. The remainder of the foot is not painful. She is significant tenderness in the heel on exam as well. I did remove her heel dressing and she does have a small to moderate
superficial ulceration. That is the site of tenderness and pain. The toes are reasonably pink.
Plan/ Likely pain secondary to ulceration and nonhealing secondary to ischemia. Would recommend angiography if she is medically fit. She appears very frail and has multiple medical/cardiac issues actively. IF she is deemed a reasonable candidate
for angiography, we will potentially pursue angiography next week (possibly Tuesday if schedule allows), but if not medically fit, we will hold off until otherwise.
[2024-08-25] MEDS: REMOVE LIDOCAINE PATCH 2 PATCH REMOVE (21:10)
[2024-08-25] MEDS: ASPIR LOW (ENTERIC COATED) 81 MG PO (22:00)
[2024-08-25] MEDS: TYLENOL PO (23:37)
[2024-08-26] VITALS (10 sets, daily range): BP systolic 102–124; BP diastolic 57–70; PULSE 72–92; O2SAT 94; BMI 22.0
[2024-08-26] MEDS: TYLENOL 650 MG PO ×6 (04:20→23:46)
[2024-08-26] MEDS: DILAUDID 0.5 MG IV (04:21)
[2024-08-26] MEDS: SYNTHROID 150 MCG PO (05:59)
--- NOTE | 2024-08-26 07:02 | W.PN.HOSP.TC ---
Today's Communication/Plan
-
diuresis rate rhythm control as per Cardio
Holding off on angiography for now as per Nephro
cont bowel regimen
Pain control
CXR in AM follow up pleural effusion
Assessment / Plan
Assessment / Plan
Physical Exam
General: no acute distress appears comfortable
HEENT: NormoCephalic, Moist mucous membranes and Atraumatic
Respiratory: Bibasilar crackles
Cardiac: S1/S2 and Regular Rhythm; No Murmur or Rub
GI: Soft, Non Tender, abd distended and Normal Bowel Sounds
Musculoskeletal: No Clubbing, No Cyanosis, Left arm with edema, Left arm in sling, Bilateral lower extremities edema +1
Neuro: AO x 3 conversant coherent
Psych: Calm
HPI: 79F hx pleural effusion HFpEF HTN afib ppm Celiac dz HLD pulm htn here for evaluation syncope with associate clavicle and rib fractures likely d/t fall. Syncope had occurred while taking bowel prep for capsule endoscopy. Patient endorsed
feeling lightheaded/dehydrated prior to event.
#Syncope likely vasovagal (patient was undergoing bowel prep for capsule endoscopy at the time)
Head CT negative
Monitor daily orthostatic vital signs
Patient has not been able to stand for standing blood pressure d/t left lower ext pain as below
#Acute hypoxic respiratory insufficiency
#Left clavicle fracture-sling in place
#Lt 3rd thru 5th rib fractures
#traumatic fractures, likely osteoporosis contributing
Acute hypoxia multifactorial from poor inspiratory effort from rib fractures, chronic right pleural effusion, and abdominal distention from constipation
Thoracic Lumbar XR appreciated multilevel discogenic degenerative disease, small to mod b/l pleural effusions, acute interstitial/alveolar cardiogenic edema, large dense b/l lower lobe airspace consolidations most likely d/t atelectasis
Appreciate orthopedic surgery input, recommend conservative management with left arm sling for left clavicle fracture
Oxygen dependent nasal cannula throughout most of hospitalization, weaned off to room air 08.26.24
Continue pain control, incentive spirometry
# Chronic pleural effusions suspected multifactorial from partial hypoalbuminemia, deconditioning, possible malnutrition unclear severity
# Right pleural effusion status post thoracentesis on 05/23/2024 with symptomatic improvement in 1350 cc of fluid removed
# History of recurrent left-sided pleural effusion status post admission to [place] with VATS and pulmonary decortication 01/2024.
# Ascites
Status post right thoracentesis on 08/17, draining 1.5 L, cultures negative for growth, path negative for malignancy, shows inflammation
Status post right thoracentesis 08/19, draining 1.35 L
Cardiology and pulmonology following, changed from IV Lasix to Bumex 1 mg IV twice daily
repeat chest x-ray on Sunday 08/27 eval for possible reaccumulation right pleural effusion
Not enough fluid in the abdomen for paracentesis
# Acute on chronic heart failure with preserved ejection fraction
Cardiology following, changed from IV Lasix to Bumex 1 mg IV twice daily
cont diuresis as per Cardio
#ANNA
Possibly cardiorenal syndrome
Cardio and Nephro eval appreciated
cont diuresis as above
#Severe constipation
#Ingested Capsule endoscopy
Status post enema 08/21
Continue aggressive bowel regimen
passed capsule endoscopy 08/26
#Peripheral artery disease
#Cyanotic left foot
#Acute on Chronic left foot ischemia
Appreciate vascular surgery input, patient has chronic SFA stenosis
Vascular surgery eval appreciated eventual angiography with attempted left SFA angioplasty/stenting planned
Nephro recommends holding angiography at this time d/t ANNA as above
#Left cephalic vein superficial thrombus
Supportive care
# Anemia of chronic disease
Ingested capsule endoscopy prior to coming to hospital, has kit for retrieval when passes. Capsule passed 08/26 as above
Hemoglobin dipped to 7.8
Status post 1 unit packed red blood cells with appropriate response, Hgb has remained stable since
Continue to monitor, transfuse as needed
#Hyponatremia
Fluid restrict, trend sodium
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
#History of Takotsubo CM w/recovered EF (2005)
# Paroxysmal atrial fibrillation
# Prior PVI (2016)
# s/p PFA 08/24/23
-continue [employer] eliquis 2.5 bid
-continue [employer] metoprolol
-cardiology increased amiodarone to 200 mg twice a day, cont
# Hypothyroidism
-Synthroid continued
-TFT appears to suggest Hypothyroidism uncontrolled, TSH elevated
-pt endorses compliance with synthroid and no recent changes in dose
-repeated TFT show TSH trending down
-cont current synthroid for now, outpt follow up with Endocrinology recommended
#Elevated troponin from nonischemic myocardial injury
#Lung Nodule
# Celiac disease
gluten free diet
#Moderate portal hypertensive gastropathy
PT/OT appreciated SNF rehab
DVT PPX on Eliquis
Code status - full code
Discussed with patient and patient's son All
Patient with multiple comorbidities�palliative care consulted
Disposition�short-term rehab at [facility] when stable
I spent a total of 45 minutes with the patient or on the floor. More than 50% of this time involved counseling and coordination of care.
Anticipated Discharge: > 48 hours
Subjective/Interval History
-
Date of Service: August 26, 2024
No acute distress, resting comfortably in bed, weaned off oxygen supplementation stable respiratory status on room air at time of evaluation. Left lower ext pain/tenderness persists, patient unable to stand d/t pain. Later in day patient had bowel
movement with capsule endoscopy finally passing.
Objective Data
-
Labs:
Laboratory Results
08/26/24
06:00
WBC Pending
Hgb Pending
Hct Pending
Plt Count Pending
Sodium Pending
Potassium Pending
Chloride Pending
Carbon Dioxide Pending
BUN Pending
Creatinine Pending
Glucose Pending
Calcium Pending
Vital Signs:
Vital Signs
Temp Pulse Resp BP Pulse Ox
97.5 F 93 17 120/70 100
08/26/24 03:19 08/26/24 03:19 08/26/24 03:19 08/26/24 03:19 08/26/24 03:19
I&O
08/25/24 08/26/24 08/27/24
06:59 06:59 06:59
Intake Total 480 / 480 600 / 600
Balance 480 / 480 600 / 600
[2024-08-26 07:50] LABS: Hematocrit 32.7 % (37.0-47.0); Hemoglobin 11.1 g/dL (12.0-16.0); Mean Corp Hgb Conc. 33.9 g/dL (33.0-37.0); Mean Corpuscular Volume 98.8 fL (81.0-99.0); Platelet Count 350 10^3/uL (130-400); Red Cell Dist. Width 19.4 % (11.5-14.5)
[2024-08-26 08:34] LABS: Blood Urea Nitrogen 68 mg/dl (7-17); Calcium 7.6 mg/dl (8.4-10.2); Carbon Dioxide 18 mmol/L (22-30); Chloride 106 mmol/L (98-107); Estimated Creatinine Clearance 23 ml/min; Glucose 83 mg/dl (70-99); Potassium 3.7 mmol/L (3.5-5.1); Sodium 129 mmol/L (135-145); eGFR 27.96
[2024-08-26] MEDS: BenGay-Like 1 APPLIC TOPICAL ×4 (08:38→22:29)
[2024-08-26] MEDS: SENOKOT-S PO ×3 (08:40→19:57)
[2024-08-26] MEDS: ZETIA 10 MG PO (08:42)
[2024-08-26] MEDS: LIDOCAINE 4% PATCH 2 PATCH TOPICAL (08:42)
[2024-08-26] MEDS: VITAMIN C 1000 MG PO (08:42)
[2024-08-26] MEDS: VITAMIN B-12 1000 MCG PO (08:43)
[2024-08-26] MEDS: MIRALAX 17 GRAMS PO (08:43)
[2024-08-26] MEDS: ELIQUIS 2.5 MG PO ×2 (08:43→19:53)
[2024-08-26] MEDS: PACERONE 200 MG PO ×2 (08:43→19:56)
[2024-08-26] MEDS: BUMEX 1 MG IV ×2 (08:44→17:27)
[2024-08-26] MEDS: KCL 20 MEQ PO (08:44)
[2024-08-26] MEDS: TOPROL XL 25 MG PO (08:44)
[2024-08-26] MEDS: HYDROPHOR 1 APPLIC TOPICAL ×2 (08:45→19:58)
--- NOTE | 2024-08-26 09:58 | W.PN.CARDCBS ---
Today's Communication / Plan
-
Changed to p.o. diuretic on August 27
I have no objection to proceeding to left lower extremity angiogram timing per vascular surgery
Follow creatinine post angiogram and or intervention given creatinine of 1.8-1.9 but is stable
- Continue other cardiac meds
- Okay to hold Eliquis for her procedure. As the timing is unclear I will defer to vascular surgery in terms of holding Eliquis.
Impression / Plan
-
PCP: Stella Sutherland PA-C
Color Technician: Dr. Kiera Diaz
Impression:
Admitted with fall, clavicle fracture and possible acute HF 08/15/24
Syncope
Fall and left clavicle fracture
Acute on chronic HFpEF
Recurrent pleural effusion
s/p Left Asept pleural catheter placement 11/29/23, removed after admission to [place] with VATS and pulmonary decortication 01/2024
Small to moderate B/L pleural effusions by CXR 08/15/2024
R thoracentesis 08/17/2024 for 1500 cc-no growth on culture, fluid studies suggestive of transudate
R thoracentesis 08/21/2024 1350cc clear yellow
ANNA
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
Hyponatremia
Paroxysmal atrial fibrillation
Prior PVI (2016)
s/p PFA 08/24/23
Tikosyn stopped during [facility] rehab stay 02/2024 and now on chronic amiodarone
recurrent afib 08/22/2024 and Amio increased to 200 mg bid
Chronic anticoagulation on Eliquis
Takotsubo CM w/recovered EF (2005)
Negative workup for cardiac amyloid
HLD
HTN
MR
Renal nephrosis
Lung Nodule (2021, stable)
Anemia
celiac dz
Echo 05/18/2023: EF 69%, stage II diastolic dysfunction. Moderately dilated right atrium. Mild to moderate MR. Mild TR. PAP 36 mmHg. Small pericardial effusion
Echo 11/25/2023: EF 55-60%, global longitudinal strain is -14.2, stage III diastolic dysfunction, mild MR, dilated left atrium, aortic sclerosis, normal RV, pulmonary artery systolic pressure 45-50 mmHg
Echo 08/16/2024: EF 60-65%, mild cLVH, stage II diastolic dysfunction, mild MR, severe TR, estimated PAP 70 mmHg, small to moderate pericardial effusion w/o evidence of hemodynamic compromise
Plan:
-Weight 134 lbs, down 5lbs overnight, down 17 lbs since admit on 08/15. Continues Bumex 1 mg IV bid. Home diuretic Torsemide 20 mg daily. Diuretic held for few days this admission for ANNA with creat 1.9 from 1.0 on admission, baseline creatine
previously 1-1.2. Creat has ranged 1.4-1.9 since admission, up to 1.9 today with good diuresis overnight
- repeat CXR 08/24/2024 w/ sm to mod R pleural effusion, sl increased. CXR on 08/21/24 suggested large R pleural effusion and patient had a right-sided thoracentesis for 1.35 L, 08/20/2024
�For repeat chest x-ray per pulmonary on 08/26
-Previous dry weight 131 lbs at last d/c 05/26/24.
-proBNP 8420 08/22/2024 (was 2340 on admission)
--paracentesis 08/23 but procedure cancelled
-cont IV diuresis with Bumex 1 mg bid and switch to p.o. diuretic on August 27
-Palliative care was consulted in outpatient setting and patient signed onto their services. Consulted 08/24 for inpatient evaluation-they anticipate seeing her on 08/27
-Outpatient dose of spironolactone 12.5 mg MWF on hold due to ANNA
-Outpatient dose of Toprol XL 25 mg daily has been continued
-Patient is not chronically on NILAY/ARB/ARNI due to hypotension/now with CKD
-Patient is not chronically on an SGLT2 inhibitor due to history of UTI
-EF stable by echo this admission
-Previous cardiac amyloid workup was negative
-Syncope on admission in the setting of frequent defecation and orthostasis, no history of syncope. Patient has not previously been orthostatic nor has she required midodrine in the past.
-Patient with known chronic anemia and recent outpatient transfusions have been arranged by GI. Known hypoalbuminemia, albumin given x3 this admission.
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 Hgb stable 10.1 08/25.
-Patient with known paroxysmal A-fib and went into afib/aflutter on telemetry 08/22. There was concern for pacemaker-mediated tachycardia however on device interrogation this was determined to be afib w rapid V tracking, HRs 120-130s. Pacemaker
upper tracking rate decreased from 130 to 90 bpm 08/23 due to reduce rapid V pacing.
-currently back in NSR 08/24 but having paroxysm of afib and occ PVCs on telemetry, which was personally reviewed
-Device check in the office on 05/22/2024 showed an A-fib burden of 1%, but by most recent device check in the ER on 08/15/2024 atrial arrhythmia burden has increased to 53%.
- Amiodarone was increased to 100 mg bid on admission 08/16/2024 and again to Amio to 200 mg bid 08/23/2024
- Another option would be possible AVJ as patient has PPM in place, but this does not appear to be acute and can be considered for future management options.
-Continue Eliquis 2.5 mg BID (age 79, Cre 1.8, wt 62.7 kg) as weight is generally less than 60 kg
- Telemetry personally reviewed: Normal sinus rhythm 70s with occasional V pacing.
- Patient with acute left foot pain 08/23/2024 and also noted to have new LUE edema.
-vascular consulted:
- LUE US: some left cephalic vein thrombus.
-LE arterial study 08/23/2024: LLE FABIAN 0.49,TBI 0. RLE FABIAN 1.16, but not thought to be accurate
per vascular, thought to have multifactorial ischemic condition of L foot and not thought to be acute limb ischemia. Not thought to be good candidate for angiography/revasularization. Medical optimization advised at this time.
- pt reports L foot pain improved today
- I have no objections to proceeding to angiogram to diagnose and potentially treat her because of her ongoing left foot heel pain which seems to be her most prominent symptom. Cardiovascular she is low to moderate risk for complication she does
have an elevated creatinine at 1.9 and she may have a rising creatinine post angiogram and/or intervention
HPI: Patient came to [facility] ER yesterday after fall and is now being mated with syncope, clavicle fracture and possible HFpEF with consultation to cardiology. Patient was seen in the office on 07/17/2024 and her proBNP was felt to be acceptable
although her weight was up to 136 lbs with her previous weight being 133 lbs, there were also moderate bilateral pleural effusions. Usual dose of torsemide 20 mg daily was continued and the patient was agreeable to referral for palliative care
assessment. eCW tasks was reviewed by me and patient was given 1 unit PRBCs on 08/02/2024 for Hgb of 7.7 and the Hgb only improved up to 8.2 so a second unit was given on 08/06/24. Remote device check 08/08/2024 had a 7-hour long atrial flutter episode
and patient was already on Eliquis, no other changes, but later that day patient called with weight gain and was told to take additional torsemide 20 mg for a total of 40 mg daily on 08/08/2024 and 08/09/2024 and although she lost 4 lbs she had ongoing
GILLIAM and fatigue. Then patient was preparing for a scheduled capsule endoscopy for her celiac disease by taking Miralax and after swallowing the capsule she felt disoriented, lost her sense of balance and had a fall. Patient was brought to [facility] ER
and admitted for syncope, clavicle fracture and possible acute on chronic HFpEF. Patient was given Lasix 40 mg IV x 1 in the ER. Her Cre on arrival was 1.0 and today is up to 1.4.
Progress Note - Color Technician
Subjective
Date of Service: August 26, 2024
Ongoing left heel pain
Objective
Labs:
08/26/24 07:20
08/26/24 07:20
Labs
Hgb 11.1 g/dL (12.0-16.0) L 08/26/24 07:20
Hct 32.7 % (37.0-47.0) L 08/26/24 07:20
Plt Count 350 10^3/uL (130-400) 08/26/24 07:20
Sodium 129 mmol/L (135-145) L 08/26/24 07:20
Potassium 3.7 mmol/L (3.5-5.1) 08/26/24 07:20
BUN 68 mg/dl (7-17) H 08/26/24 07:20
Creatinine 1.8 mg/dL (0.6-1.0) H 08/26/24 07:20
Glucose 83 mg/dl (70-99) 08/26/24 07:20
Vital Signs and I&O:
Vital Signs
Temp Pulse Resp BP Pulse Ox
98.2 F 75 16 119/57 95
08/26/24 07:31 08/26/24 08:44 08/26/24 07:31 08/26/24 08:44 08/26/24 08:45
Vital Signs
Temp Pulse Resp BP Pulse Ox
98.2 F 75 16 119/57 95
08/26/24 07:31 08/26/24 08:44 08/26/24 07:31 08/26/24 08:44 08/26/24 08:45
Intake & Output
08/24/24 08/25/24 08/26/24 08/27/24
06:59 06:59 06:59 06:59
Intake Total 700 / 700 480 / 480 940 / 940
Balance 700 / 700 480 / 480 940 / 940
Physical Exam
Physical Exam
����Physical Exam
���������������������General:��no apparent distress, not acutely ill
���������������������������Neck:��supple. no meningeal signs. normal psoterior pharynx
������������������������
���������������������������Heart:��s1/s2 regular rate and rhythm, no murmur. equal radial pulses.
��������������������������Lungs: ��no acute respiratory distress. clear bilaterally
����������������������Abdomen:�normal bowel sounds. not tender. no CVAT
��������������������������Neuro:��alert and oriented. no focal neurological deficits
������������������������������Skin: ��no rash
�����������������������Psychiatric:�well kept. interactive and cooperative
�����������������������Extremities:��no edema. no calf tenderness. negative homans. good distal pulses
��
�
--- NOTE | 2024-08-26 10:09 | W.PN.UPDATE ---
Update Note
Progress Note Update
Discussed with Dr. Ayoub. No cardiac contraindication to proceeding with angiography. Will tentatively plan potential angiogram for tomorrow, but based on schedule I am not sure that realistically we will be able to perform. Will keep n.p.o.
after midnight for now. Hold Nichole. Further clarification tomorrow.
--- NOTE | 2024-08-26 11:56 | W.CON.NEPH ---
Consultation
-
Date/Time Consultation Requested: 08/26/24 1111
Date/Time Consultation Performed: 08/26/24 1140
Requesting Provider: Dinah Bhatia
Performing Provider: Zeina Lujan
Reason for Consultation: ANNA
Medical History
-
Chief Complaint: syncope
History of Present Illness:
79-year-old female with past medical history for Pleural effusion prior thoracentesis, CHF on torsemide, Aldactone, hypertension, A-fib on BB and Amio, AC with Eliquis, cardiomyopathy, pacemaker celiac disease, hyperlipidemia, pulmonary
hypertension, chronic hyponatremia, aortic valve insufficiency who presented after syncopal episode in the bathroom on 08/15. She was undergoing capsule endoscopy and her diet was off and while in restroom she passed out. She was also sob with recent
weight gain for which her diuretics was increased 10 days ago [employer]. She noted to have left clavicle fracture and currently maintained in sling. She also noted to have DCHF flare and started with diuretics, required thoracentesis x2. Her cr on admit
was at 1(baseline 1.1) and increased to 1.9 on 08/17, since then cr has demetrio in range of 1.6-1.9. She noted to have left foot ischemia from PAD. She saw vascular and thought will need angiogram. with ANNA nephrology asked to eval. She offers no cp or
sob at rest. Leg heel pain still but improving. No abd pain or n/v. No fevers. No dysuria.
She reports having left kidney nephrosis requiring drainage as child. Her father and brother both were on HD for few years before their demise.
Past Medical History
Chronic HFpEF
Recurrent pleural effusion-s/p Left Asept pleural catheter placement 11/29/23, removed after admission to [place] with VATS and pulmonary decortication 01/2024
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
Hyponatremia
Paroxysmal atrial fibrillation
Chronic anticoagulation on Eliquis
Takotsubo CM w/recovered EF (2005)
Negative workup for cardiac amyloid
HLD
HTN
MR
Renal nephrosis
Lung Nodule (2021, stable)
Anemia
celiac dz
Past Surgical History: Other (PVI ablation 2016, pulsed field ablation 08/24/2023, Bilateral hernia repair, left breast lumpectomy, cataract extraction)
Social History
Tobacco: Former Smoker
Alcohol: None
Drug: None
Living: With Family
Family History
father on HD for 2yrs dies in 70s
brother was on HD too,
Allergies / Home Medications
Allergy/AdvReac Type Severity Reaction Status Date / Time
Antihistamines Allergy Rash Verified 08/09/24 09:21
Cephalosporins Allergy Rash Verified 08/09/24 09:21
gluten Allergy Intestinal Verified 08/15/24 21:13
Issues
hydrochlorothiazide Allergy Rash Verified 08/09/24 09:21
penicillin G Allergy Rash Verified 08/09/24 09:21
penicillin V Allergy Rash Verified 08/09/24 09:21
Penicillins Allergy Rash Verified 08/09/24 09:21
�Medication �Instructions �Recorded �Confirmed �Type
aspirin 81 mg tablet,delayed 81 mg PO HS blood thinner 05/17/23 08/15/24 History
release
apixaban 2.5 mg tablet (Eliquis) 2.5 mg PO BID afib 07/19/23 08/15/24 History
ezetimibe 10 mg tablet (Zetia) 10 mg PO DAILY cholesterol 07/19/23 08/15/24 History
potassium chloride 20 mEq 20 meq PO DAILY Supplement 07/19/23 08/15/24 History
tablet,extended release(part/cryst)
amiodarone 200 mg tablet 100 mg PO DAILY Arrhythmia 05/10/24 08/15/24 History
cholecalciferol (vitamin D3) 50 50 mcg PO DAILY Supplement 05/10/24 08/15/24 History
mcg (2,000 unit) tablet (Vitamin
D3)
levothyroxine 50 mcg tablet 150 mcg PO DAILY Thyroid 05/10/24 08/15/24 History
metoprolol succinate 25 mg 25 mg PO DAILY Blood Pressure 05/10/24 08/15/24 History
tablet,extended release 24 hr
multivitamin-ferrous 1 tab PO DAILY Supplement 05/10/24 08/15/24 History
fumarate-folic acid 18 mg-400 mcg
tablet (Centrum)
sour david extract 1,000 mg 800 mg PO DAILY Supplement 05/10/24 08/15/24 History
capsule (Tart David Extract)
spironolactone 25 mg tablet 12.5 mg PO MOWEFR Fluid 05/10/24 08/15/24 History
retention/Swelling
torsemide 20 mg tablet 20 mg PO DAILY Fluid 05/10/24 08/15/24 History
Retention/Swelling
vitamin B complex 1 tab PO DAILY Supplement 05/10/24 08/15/24 History
calcium carbonate (Calcium 600) 600 mg PO DAILY Supplement ##0 05/22/24 08/15/24 History
ascorbic acid (vitamin C) 1,000 mg 1,000 mg PO DAILY 08/15/24 08/15/24 History
tablet (Vitamin C)
diphenhydramine HCl 25 mg chewable 12.5 mg PO HSPRN PRN sleep 08/15/24 08/15/24 History
tablet (Allergy Relief
(diphenhydramine))
pitavastatin calcium 1 mg tablet 1 mg PO MOWEFR 08/15/24 08/15/24 History
(Livalo)
Review of Systems
-
All other systems: Negative unless noted
Physical Exam
Vital Signs
Vital Signs
Temp Pulse Resp BP Pulse Ox
98.2 F 75 16 119/57 95
08/26/24 07:31 08/26/24 08:44 08/26/24 07:31 08/26/24 08:44 08/26/24 08:45
Lab Results
WBC 8.6 10^3/uL (4.8-10.8) 08/26/24 07:20
RBC 3.31 10^6/uL (4.20-5.40) L 08/26/24 07:20
Hgb 11.1 g/dL (12.0-16.0) L 08/26/24 07:20
Hct 32.7 % (37.0-47.0) L 08/26/24 07:20
Plt Count 350 10^3/uL (130-400) 08/26/24 07:20
Sodium 129 mmol/L (135-145) L 08/26/24 07:20
Potassium 3.7 mmol/L (3.5-5.1) 08/26/24 07:20
Chloride 106 mmol/L (98-107) 08/26/24 07:20
Carbon Dioxide 18 mmol/L (22-30) L 08/26/24 07:20
BUN 68 mg/dl (7-17) H 08/26/24 07:20
Creatinine 1.8 mg/dL (0.6-1.0) H 08/26/24 07:20
eGFR 27.96 08/26/24 07:20
Glucose 83 mg/dl (70-99) 08/26/24 07:20
Calcium 7.6 mg/dl (8.4-10.2) L 08/26/24 07:20
Phosphorus 4.5 mg/dl (2.5-4.5) 08/25/24 06:39
Xom-J-Lgvrveyxiae Pept 8420 pg/ml 08/22/24 07:43
Albumin 1.9 g/dl (3.5-5.0) L 08/24/24 08:48
Physical Exam
General: Awake, Alert, Oriented, No Distress and Nontoxic
HEENT: EOMI, Anicteric, Facial Symmetry and Neck Supple
Respiratory: Normal Excursion, Nonlabored Respirations and Other (decreased BS)
Cardiac: S1/S2 and Regular Rate/Rhythm
Abdomen: Soft, Nontender and Nondistended
Musculoskeletal: Edema (1, trace)
Skin: No Rash
Neuro: Nonfocal/Grossly Intact
Psych: Appropriate
Data Reviewed
-
Labs: Labs Reviewed by me and Discussed with Patient
Assessment/Plan
-
IMP:
Syncope likely vasovagal (patient was undergoing bowel prep for capsule endoscopy at the time)
Acute hypoxic respiratory insufficiency
Acute on chronic heart failure with preserved ejection fraction
Anna-baseline cr 1.1
Left clavicle fracture-sling in place
Lt 3rd thru 5th rib fractures
traumatic fractures, likely osteoporosis contributing
Chronic pleural effusions multiple thoracentesis this admit right 08/17 and 08/19
History of recurrent left-sided pleural effusion status post admission to [place] with VATS and pulmonary decortication 01/2024.
Ascites
Severe constipation
Ingested Capsule endoscopy [employer] has yet to pass
Peripheral artery disease
Chronic left foot ischemia
Left cephalic vein superficial thrombus
Anemia of chronic disease
chronic Hyponatremia
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
History of Takotsubo CM w/recovered EF (2005)
Paroxysmall atrial fibrillation
Prior PVI (2016)
s/p PFA 08/24/23
Hypothyroidism
Elevated troponin from nonischemic myocardial injury
Lung Nodule
Celiac disease
Moderate portal hypertensive gastropathy
PLan;
A/w syncope, noted acute CHF and left calvicular, rib fxs
ANNA- UA with microhematuria, 2+alb on admit, prior UA was bland
no hydro on US 08/22, but limited study
h/o left nephrosis per pt as child (old US shows small left kidney 05/2024)
wonder if has functioning solitary kidney
suspect cardiorenal in nature, would cont diuresis per cards
given ANNA would want to hold any angiogram till cr stabilizes further
Dipak score NOEL risk is 57%, HD risk 12%
chronic hyponatremia from hypervolemia, maintain FR
monitor met acidosis-would not add po bicab to avoid slat load
severe hypoalbuminemia -check U PCR , old UPEP neg, SPEP faint band but polyclonal, check FLC
recurrent pleural effusion -thoracentesis x2 this admit
follow labs
d/w pt
d/w primary and vascular
[2024-08-26] MEDS: DUPHALAC/CHRONULAC 20 GRAMS PO (12:55)
[2024-08-26] MEDS: ROXICODONE 5 MG PO (17:34)
--- NOTE | 2024-08-26 18:16 | PTCARENOTE ---
Pt passed capsule placed during endoscopy 08/15. GI aware, will coal picker container tomorrow from Pt's night table.
[2024-08-26] MEDS: MIRALAX PO (19:54)
[2024-08-26] MEDS: REMOVE LIDOCAINE PATCH 2 PATCH REMOVE (19:57)
[2024-08-26] MEDS: ASPIR LOW (ENTERIC COATED) 81 MG PO (22:30)
[2024-08-27] VITALS (9 sets, daily range): BP systolic 102–119; BP diastolic 55–74; PULSE 103–107; O2SAT 94; BMI 21.7
[2024-08-27] MEDS: DILAUDID 0.5 MG IV ×2 (04:05→09:59)
[2024-08-27] MEDS: TYLENOL PO (04:43)
[2024-08-27 04:57] LABS: Urine Character Cloudy (Clear)
[2024-08-27] MEDS: SYNTHROID 150 MCG PO (05:51)
[2024-08-27 06:45] LABS: Urine Red Blood Cell >100 /HPF (0-2); Urine Squamous Cell >30 /LPF (Few); Urine Urothelial Cell >30 /LPF (FEW); Urine White Cell >100 /HPF (0-5)
[2024-08-27 07:10] LABS: Hematocrit 34.7 % (37.0-47.0); Hemoglobin 12.0 g/dL (12.0-16.0); Mean Corp Hgb Conc. 34.6 g/dL (33.0-37.0); Mean Corpuscular Volume 95.9 fL (81.0-99.0); Platelet Count 362 10^3/uL (130-400); Red Cell Dist. Width 19.6 % (11.5-14.5)
--- NOTE | 2024-08-27 07:26 | W.PN.HOSP.TC ---
Today's Communication/Plan
-
hold diuresis
bicarb gtt as per nephro
opiate pain medications reduced d/t concern oversedation, nausea, appetite loss
Gabapentin added for possible neuropathic pain
cont monitoring renal function
PT/OT
wound care
Assessment / Plan
Assessment / Plan
Physical Exam
General: no acute distress appears comfortable
HEENT: NormoCephalic, Moist mucous membranes and Atraumatic
Respiratory: Bibasilar crackles
Cardiac: S1/S2 and Regular Rhythm; No Murmur or Rub
GI: Soft, Non Tender, abd distended and Normal Bowel Sounds
Musculoskeletal: No Clubbing, No Cyanosis, Left arm with edema, Left arm in sling, +2 pitting edema LUE,Bilateral lower extremities edema +1, left toes cyanotic appearance
Neuro: Lethargic but arousable oriented x3 conversant coherent
Psych: Calm
HPI: 79F hx pleural effusion HFpEF HTN afib ppm Celiac dz HLD pulm htn here for evaluation syncope with associate clavicle and rib fractures likely d/t fall. Syncope had occurred while taking bowel prep for capsule endoscopy. Patient endorsed
feeling lightheaded/dehydrated prior to event.
#Syncope likely vasovagal (patient was undergoing bowel prep for capsule endoscopy at the time)
Head CT negative
Monitor daily orthostatic vital signs
Patient has not been able to stand for standing blood pressure d/t left lower ext pain as below
#Acute hypoxic respiratory insufficiency
#Left clavicle fracture-sling in place
#Lt 3rd thru 5th rib fractures
#traumatic fractures, likely osteoporosis contributing
Acute hypoxia multifactorial from poor inspiratory effort from rib fractures, chronic right pleural effusion, and abdominal distention from constipation
Thoracic Lumbar XR appreciated multilevel discogenic degenerative disease, small to mod b/l pleural effusions, acute interstitial/alveolar cardiogenic edema, large dense b/l lower lobe airspace consolidations most likely d/t atelectasis
Appreciate orthopedic surgery input, recommend conservative management with left arm sling for left clavicle fracture
Oxygen dependent nasal cannula throughout most of hospitalization, weaned off to room air 08.26.24
Continue pain control, incentive spirometry
Pain regimen tapered down to oxycodone 5 mg Q6HPRN mod/severe pain and Dilaudid IV 0.25 mg Q4HPRN severe breakthrough pain, regimen reduced d/t concern oversedation and side effects nausea and loss of appetite
Continued scheduled Tylenol, Bengay-like cream, Gabapentin 100 mg TID added for possible neuropathic pain ('pins and needle' sensation Lower ext's)
# Chronic pleural effusions suspected multifactorial from partial hypoalbuminemia, deconditioning, possible malnutrition unclear severity
# Right pleural effusion status post thoracentesis on 05/23/2024 with symptomatic improvement in 1350 cc of fluid removed
# History of recurrent left-sided pleural effusion status post admission to [facility] with VATS and pulmonary decortication 01/2024.
# Ascites
Status post right thoracentesis on 08/17, draining 1.5 L, cultures negative for growth, path negative for malignancy, shows inflammation
Status post right thoracentesis 08/19, draining 1.35 L
Cardiology and pulmonology following, changed from IV Lasix to Bumex 1 mg IV twice daily, since placed on hold w worsening kidney function 08/27
repeat chest x-ray on Sunday 08/27 appreciated no significant re-accumulation pleural effusion
Not enough fluid in the abdomen for paracentesis
# Acute on chronic heart failure with preserved ejection fraction
Cardiology eval appreciated, changed from IV Lasix to Bumex 1 mg IV twice daily
Diuresis since placed on hold d/t worsening kidney function 08/27
#ANNA
#Metabolic Acidosis
Possibly cardiorenal syndrome
Cardio and Nephro eval appreciated
diuresis placed on hold w/ worsening kidney function 08/27 started on bicarb gtt as per Nephro
#Severe constipation
#Ingested Capsule endoscopy
Status post enema 08/21
Continue aggressive bowel regimen
passed capsule endoscopy 08/26
#Peripheral artery disease
#Cyanotic left foot
#Acute on Chronic left foot ischemia heel wound
Appreciate vascular surgery input, patient has chronic SFA stenosis
Vascular surgery eval appreciated eventual angiography with attempted left SFA angioplasty/stenting planned
Nephro recommends holding angiography at this time d/t ANNA as above
wound care consult appreciated
#Left cephalic vein superficial thrombus
Supportive care
# Anemia of chronic disease
Ingested capsule endoscopy prior to coming to hospital, has kit for retrieval when passes. Capsule passed 08/26 as above
Hemoglobin dipped to 7.8
Status post 1 unit packed red blood cells with appropriate response, Hgb has remained stable since
Continue to monitor, transfuse as needed
#Hyponatremia
Fluid restrict, trend sodium
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
#History of Takotsubo CM w/recovered EF (2005)
# Paroxysmal atrial fibrillation
# Prior PVI (2016)
# s/p PFA 08/24/23
-continue PSYCHIATRIC SOCIAL WORKER eliquis 2.5 bid
-continue PSYCHIATRIC SOCIAL WORKER metoprolol
-cardiology increased amiodarone to 200 mg twice a day, cont
# Hypothyroidism
-Synthroid continued
-TFT appears to suggest Hypothyroidism uncontrolled, TSH elevated
-pt endorses compliance with synthroid and no recent changes in dose
-repeated TFT shows TSH significantly improved trending down
-cont current synthroid for now, outpt follow up with Endocrinology recommended
#Elevated troponin from nonischemic myocardial injury
#Lung Nodule
# Celiac disease
gluten free diet
#Moderate portal hypertensive gastropathy
PT/OT appreciated SNF rehab
DVT PPX on Eliquis
Code status - full code
Discussed with patient and patient's son All
Patient with multiple comorbidities�palliative care consulted pending eval or Tue
Disposition�short-term rehab at [facility] when stable
I spent a total of 50 minutes with the patient or on the floor. More than 50% of this time involved counseling and coordination of care.
Anticipated Discharge: > 48 hours
Subjective/Interval History
-
Date of Service: August 27, 2024
Lethargic but arousable, oriented x3 conversant coherent. Endorses sleeping often throughout the day, poor appetite, nausea, no vomiting. Denies constipation, reports diarrhea. Pain LLE persists, reports 'pins and needle' sensation.
Objective Data
-
Labs:
Laboratory Results
08/27/24
06:15
WBC 8.5
Hgb 12.0
Hct 34.7 L
Plt Count 362
Sodium Pending
Potassium Pending
Chloride Pending
Carbon Dioxide Pending
BUN Pending
Creatinine Pending
Glucose Pending
Calcium Pending
Vital Signs:
Vital Signs
Temp Pulse Resp BP Pulse Ox
97.2 F 90 16 117/67 95
08/27/24 03:59 08/27/24 03:59 08/27/24 03:59 08/27/24 03:59 08/27/24 03:59
I&O
08/26/24 08/27/24 08/28/24
06:59 06:59 06:59
Intake Total 940 / 940 660 / 660
Output Total 100 / 100
Balance 940 / 940 560 / 560
[2024-08-27 07:28] LABS: Blood Urea Nitrogen 66 mg/dl (7-17); Calcium 7.7 mg/dl (8.4-10.2); Carbon Dioxide 15 mmol/L (22-30); Chloride 105 mmol/L (98-107); Estimated Creatinine Clearance 21 ml/min; Glucose 88 mg/dl (70-99); Magnesium 1.7 mg/dl (1.6-2.3); Potassium 4.3 mmol/L (3.5-5.1); Sodium 129 mmol/L (135-145); eGFR 24.64
[2024-08-27] MEDS: BenGay-Like 1 APPLIC TOPICAL ×3 (08:11→21:37)
[2024-08-27] MEDS: LIDOCAINE 4% PATCH 2 PATCH TOPICAL (08:22)
[2024-08-27] MEDS: TYLENOL 650 MG PO ×4 (08:22→20:21)
[2024-08-27] MEDS: SENOKOT-S PO ×2 (08:23→20:21)
[2024-08-27] MEDS: MIRALAX PO ×2 (08:23→20:21)
[2024-08-27] MEDS: VITAMIN B-12 1000 MCG PO (08:24)
[2024-08-27] MEDS: VITAMIN C 1000 MG PO (08:24)
[2024-08-27] MEDS: ZETIA 10 MG PO (08:24)
[2024-08-27] MEDS: AYR SALINE NASAL GEL 1 APPLIC NASAL ×2 (08:24→21:36)
[2024-08-27] MEDS: KCL 20 MEQ PO (08:24)
[2024-08-27] MEDS: TOPROL XL 25 MG PO (08:25)
[2024-08-27] MEDS: ELIQUIS 2.5 MG PO ×2 (08:25→20:22)
[2024-08-27] MEDS: PACERONE 200 MG PO ×2 (08:25→20:22)
[2024-08-27] MEDS: HYDROPHOR 1 APPLIC TOPICAL ×2 (08:26→21:42)
[2024-08-27] MEDS: FLUSH (NSS) 1 FLUSH IV ×3 (08:26→14:48)
[2024-08-27] MEDS: LIPITOR 10 MG PO (08:31)
[2024-08-27] MEDS: BUMEX IV (09:06)
--- NOTE | 2024-08-27 11:01 | W.PN.CARDCBS ---
Addendum entered and electronically signed by Jose Alberto Tran MD 08/27/24 12:56:
Extremely pleasant and very complex 79-year-old woman admitted now after a syncopal episode with a clavicular fracture. We are asked to review regarding HFpEF and edema related to hypoalbuminemia with bilateral pleural effusions and prior history
of VATS. Recent hospital course has been notable for right thoracentesis x 2 August 17 and August 21 ischemic left lower extremity pain and she is tentatively planned for left lower extremity arteriography.
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
in 2023, now on amiodarone, remote Takotsubo cardiomyopathy, hypertension, hyperlipidemia, and anemia
PSH: In addition to above, herniorrhaphy, lumpectomy cataracts
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
Rest of history as below.
Current meds: Apixaban 2.5 twice daily, not currently on hold, aspirin 81 mg a day, ezetimibe 10 mg a day, levothyroxine 150 mcg daily, metoprolol ER 25 mg daily, atorvastatin 10 mg 3 days a week, potassium, 20 mill equivalents daily, lidocaine
patch, MiraLAX, lactulose, bumetanide 1 mg IV twice daily, amiodarone 2 mg twice daily
108/72, pulse 110 respiratory 18, afebrile, weight is 61 kg, down 0.7 kg, peak weight was 60.6 kg on admission frail, cachectic, toes on left foot are cyanotic, diminished breath sounds in bases, temporal wasting, irregular rate and rhythm, soft
systolic murmur, JVD okay pads on heels, left leg wrapped, pulses diminished, abdomen scaphoid
Hemoglobin is 12.0, platelets are 362, BUN/creatinine are 66 and 2.0, creatinine was 1.0 on May 26, and 1.0 on August 15
UA from today 3+ blood, 3+ leukocytes, many bacteria
Being screened for monoclonal gammopathy, pending
Chest x-ray today small-moderate effusions
Impression:
Syncope with clavicular fracture, likely related to orthostasis/hypotension
Acute on chronic HFpEF
Recurrent pleural effusion
s/p Left Asept pleural catheter placement 11/29/23, removed after admission to [facility] with VATS and pulmonary decortication 01/2024
Small to moderate B/L pleural effusions by CXR 08/15/2024
R thoracentesis 08/17/2024 for 1500 cc-no growth on culture, fluid studies suggestive of transudate
R thoracentesis 08/21/2024 1350cc clear yellowAKI
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
Hyponatremia
Paroxysmal atrial fibrillation
Prior PVI (2016)
s/p PFA 08/24/23
Tikosyn stopped during [facility] rehab stay 02/2024 and now on chronic amiodarone
recurrent afib 08/22/2024 and Amio increased to 200 mg bidChronic anticoagulation on Eliquis
Takotsubo CM w/recovered EF (2005)
Negative workup for cardiac amyloid
HLD
HTN
MR
Renal nephrosis
Lung Nodule (2021, stable)
Anemia
celiac dz
Echo 05/18/2023: EF 69%, stage II diastolic dysfunction. Moderately dilated right atrium. Mild to moderate MR. Mild TR. PAP 36 mmHg. Small pericardial effusion
Echo 11/25/2023: EF 55-60%, global longitudinal strain is -14.2, stage III diastolic dysfunction, mild MR, dilated left atrium, aortic sclerosis, normal RV, pulmonary artery systolic pressure 45-50 mmHg
Echo 08/16/2024: EF 60-65%, mild cLVH, stage II diastolic dysfunction, mild MR, severe TR, estimated PAP 70 mmHg, small to moderate pericardial effusion w/o evidence of hemodynamic compromise
Plan:
Volume status is still somewhat overloaded but given ANNA and rising creatinine, agree with holding Bumex. Major issue is hypoalbuminemia. We have never gotten to the bottom of this.
Her peripheral arteriogram and possible intervention on hold related to renal function. She is still receiving Eliquis which will need to be held when she is ready to go to the lab.
Heart rhythm is difficult to assess, on EKG today I think she is in sinus rhythm. We can reinterrogate her device. Even if intermittent A-fib which is likely, her rate is well-controlled.
Would not make any changes today in her regimen other than holding her furosemide.
UA is abnormal defer to primary service
Will continue to follow. Given her nutritional status, her prognosis is guarded.
Original Note:
Today's Communication / Plan
-
hold diuretics
Impression / Plan
-
PCP: Stella Sutherland PA-C
Audiology Director: Dr. Kiera Diaz
Impression:
Admitted with fall, clavicle fracture and possible acute HF 08/15/24
Syncope
Fall and left clavicle fracture
Acute on chronic HFpEF
Recurrent pleural effusion
s/p Left Asept pleural catheter placement 11/29/23, removed after admission to [facility] with VATS and pulmonary decortication 01/2024
Small to moderate B/L pleural effusions by CXR 08/15/2024
R thoracentesis 08/17/2024 for 1500 cc-no growth on culture, fluid studies suggestive of transudate
R thoracentesis 08/21/2024 1350cc clear yellow
ANNA
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
Hyponatremia
Paroxysmal atrial fibrillation
Prior PVI (2016)
s/p PFA 08/24/23
Tikosyn stopped during [facility] rehab stay 02/2024 and now on chronic amiodarone
recurrent afib 08/22/2024 and Amio increased to 200 mg bid
Chronic anticoagulation on Eliquis
Takotsubo CM w/recovered EF (2005)
Negative workup for cardiac amyloid
HLD
HTN
MR
Renal nephrosis
Lung Nodule (2021, stable)
Anemia
celiac dz
Echo 05/18/2023: EF 69%, stage II diastolic dysfunction. Moderately dilated right atrium. Mild to moderate MR. Mild TR. PAP 36 mmHg. Small pericardial effusion
Echo 11/25/2023: EF 55-60%, global longitudinal strain is -14.2, stage III diastolic dysfunction, mild MR, dilated left atrium, aortic sclerosis, normal RV, pulmonary artery systolic pressure 45-50 mmHg
Echo 08/16/2024: EF 60-65%, mild cLVH, stage II diastolic dysfunction, mild MR, severe TR, estimated PAP 70 mmHg, small to moderate pericardial effusion w/o evidence of hemodynamic compromise
Plan:
-Weight 134 lbs, down 2lbs overnight, down 17 lbs since admit on 08/15 and now weaned off O2. Early in admission on IV Lasix and then transitioned to IV Bumex. Home diuretic Torsemide 20 mg daily. Diuretic now on hold, last dose 08/26, due to
increase in creatinine
-Diuretic held for few days early in this admission for ANNA with creat 1.9 from 1.0 on admission, baseline creatine previously 1-1.2. Creatinine now up to 2.0 08/27.
- repeat CXR today 08/27/2024 w/ sm B/L pleural effusions, improved effusion on R. she is s/p R thoracentesis 08/17 and 08/21/24 as above
-Previous dry weight 131 lbs at last d/c 05/26/24.
-given increase in creat to 2.0 today will cont to hold diuretic
-Palliative care was consulted in outpatient setting and patient signed onto their services. Consulted 08/24 for inpatient evaluation-they anticipate seeing her on Mon 08/27
-Outpatient dose of spironolactone 12.5 mg MWF on hold due to ANNA
-Outpatient dose of Toprol XL 25 mg daily has been continued
-Patient is not chronically on NILAY/ARB/ARNI due to hypotension/now with CKD
-Patient is not chronically on an SGLT2 inhibitor due to history of UTI
-EF stable by echo this admission
-Previous cardiac amyloid workup was negative
-Syncope on admission in the setting of frequent defecation and orthostasis, no history of syncope. Patient has not previously been orthostatic nor has she required midodrine in the past.
-Patient with known chronic anemia and recent outpatient transfusions have been arranged by GI. Known hypoalbuminemia, albumin given x3 this admission.
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 Hgb improving 12.1 08/25.
-Patient with known paroxysmal A-fib and went into afib/aflutter on telemetry 08/22. There was concern for pacemaker-mediated tachycardia however on device interrogation this was determined to be afib w rapid V tracking, HRs 120-130s. Pacemaker
upper tracking rate decreased from 130 to 90 bpm 08/23 due to reduce rapid V pacing.
-currently back in afib,occ PVCs, HR 90s, telem personally reviewed
-Device check in the office on 05/22/2024 showed an A-fib burden of 1%, but by most recent device check in the ER on 08/15/2024 atrial arrhythmia burden has increased to 53%.
- Amiodarone was increased to 100 mg bid on admission 08/16/2024 and again to Amio to 200 mg bid 08/23/2024
- Another option would be possible AVJ as patient has PPM in place, but this does not appear to be acute and can be considered for future management options.
-Continue Eliquis 2.5 mg BID (age 79, Cre 1.8, wt 62.7 kg) as weight is generally less than 60 kg
-
- Patient with acute left foot pain 08/23/2024 and also noted to have new LUE edema.
-vascular consulted:
- LUE US: some left cephalic vein thrombus.
-LE arterial study 08/23/2024: LLE FABIAN 0.49,TBI 0. RLE FABIAN 1.16, but not thought to be accurate
per vascular, thought to have multifactorial ischemic condition of L foot and not thought to be acute limb ischemia. Not thought to be good candidate for angiography/revasularization. Medical optimization advised at this time.
-no angiography due to increase in creatinine.
-wound care has been consulted(L heal wound)
HPI: Patient came to [facility] ER yesterday after fall and is now being mated with syncope, clavicle fracture and possible HFpEF with consultation to cardiology. Patient was seen in the office on 07/17/2024 and her proBNP was felt to be acceptable
although her weight was up to 136 lbs with her previous weight being 133 lbs, there were also moderate bilateral pleural effusions. Usual dose of torsemide 20 mg daily was continued and the patient was agreeable to referral for palliative care
assessment. eCW tasks was reviewed by me and patient was given 1 unit PRBCs on 08/02/2024 for Hgb of 7.7 and the Hgb only improved up to 8.2 so a second unit was given on 08/06/24. Remote device check 08/08/2024 had a 7-hour long atrial flutter episode
and patient was already on Eliquis, no other changes, but later that day patient called with weight gain and was told to take additional torsemide 20 mg for a total of 40 mg daily on 08/08/2024 and 08/09/2024 and although she lost 4 lbs she had ongoing
GILLIAM and fatigue. Then patient was preparing for a scheduled capsule endoscopy for her celiac disease by taking Miralax and after swallowing the capsule she felt disoriented, lost her sense of balance and had a fall. Patient was brought to [facility] ER
and admitted for syncope, clavicle fracture and possible acute on chronic HFpEF. Patient was given Lasix 40 mg IV x 1 in the ER. Her Cre on arrival was 1.0 and today is up to 1.4.
Progress Note - Audiology Director
Subjective
Date of Service: August 27, 2024
off O2
creat to 2.0, diuretics on hold
Objective
Labs:
08/27/24 06:15
08/27/24 06:15
Labs
Hgb 12.0 g/dL (12.0-16.0) 08/27/24 06:15
Hct 34.7 % (37.0-47.0) L 08/27/24 06:15
Plt Count 362 10^3/uL (130-400) 08/27/24 06:15
Sodium 129 mmol/L (135-145) L 08/27/24 06:15
Potassium 4.3 mmol/L (3.5-5.1) 08/27/24 06:15
BUN 66 mg/dl (7-17) H 08/27/24 06:15
Creatinine 2.0 mg/dL (0.6-1.0) H 08/27/24 06:15
Glucose 88 mg/dl (70-99) 08/27/24 06:15
Vital Signs and I&O:
Vital Signs
Temp Pulse Resp BP Pulse Ox
97.5 F 110 18 108/72 93
08/27/24 07:00 08/27/24 08:25 08/27/24 07:00 08/27/24 08:25 08/27/24 09:04
Vital Signs
Temp Pulse Resp BP Pulse Ox
97.5 F 110 18 108/72 93
08/27/24 07:00 08/27/24 08:25 08/27/24 07:00 08/27/24 08:25 08/27/24 09:04
Intake & Output
08/25/24 08/26/24 08/27/24 08/28/24
06:59 06:59 06:59 06:59
Intake Total 480 / 480 940 / 940 660 / 660
Output Total 100 / 100
Balance 480 / 480 940 / 940 560 / 560
Physical Exam
Physical Exam
GEN: No distress, awake, Ox3
HEENT: supple, anicteric, mmm
LUNGS: CTA, no wheezes/rales
CV: irreg, irreg, 1/6 syst LSB, no murmur
ABD: soft, BS+, NT/ND
EXT: trace LE edema, L toes purplish, L foot cool, wound L heal
NEURO: Gross non-focal
SKIN: No rash
--- NOTE | 2024-08-27 11:06 | WOUNDNOTE ---
[facility] RN note: Patient admitted with CHF, Syncope and multiple rib and L clavicle fractures s/p fall.
See H&P for complete history.
PMH:79-year-old female with past medical history for Pleural effusion, CHF, hypertension, A-fib cardiomyopathy, pacemaker celiac disease, hyperlipidemia pulmonary hypertension aortic valve insufficiency who presented after syncopal episode in the
bathroom.
Wound Location and type/assessment: Patient admitted with: L heel small stage 3 PI mixed with arterial, painful to touch, abad slough at base. Arterial studies done showed TBI of 0.00 on L leg, vascular following and reviewed note. For Angiogram
later today. L foot with mottled light purple discoloration, skin warm and dry. R heel blanchable red. Turned patient onto side with assist of Daphney wound nurse, sacrum is intact.
Appetite: NPO
Pressure redistribution devices in place: On Accumax, air cushion on pillow to offload heels, patient refused offloading heel boot, states it didn't work out for her.
Plan: applied protective foam to R heel. L heel applied adaptic and dry dressing. Recommend Santyl to start tomorrow for L heel ulcer. Will follow along peripherally and assist as needed.
Will confirm orders with hospitalist and updated nurse Shadia.
Updated care plan and will follow as needed.
Note to case management of equipment requested for discharge: VN
Recommend follow up with vascular.
--- NOTE | 2024-08-27 12:26 | CM ---
Weaned off oxygen Pox 95%.
Pain meds as needed.
PT still recommends Snf
Family and pt indicate wanting [facility] [place].
Please check with [facility] [place] for a bed availability.
[facility]
report [phone]
fax [phone]
PLAN To [facility] [place] if bed available .
[2024-08-27] MEDS: DUPHALAC/CHRONULAC 20 GRAMS PO (12:51)
--- NOTE | 2024-08-27 12:51 | W.PN.NEPH.PH ---
Today's Communication / Plan
-
Continue to hold diuretics
Monitor worsening acidosis
Will start gentle IV bicarbonate
Assessment/Plan
-
IMP:
Syncope likely vasovagal (patient was undergoing bowel prep for capsule endoscopy at the time)
Acute hypoxic respiratory insufficiency
Acute on chronic heart failure with preserved ejection fraction
Brigitte-baseline cr 1.1
Left clavicle fracture-sling in place
Lt 3rd thru 5th rib fractures
traumatic fractures, likely osteoporosis contributing
Chronic pleural effusions multiple thoracentesis this admit right 08/17 and 08/19
History of recurrent left-sided pleural effusion status post admission to [facility] with VATS and pulmonary decortication 01/2024.
Ascites
Severe constipation
Ingested Capsule endoscopy [employer]UM [employer] has yet to pass
Peripheral artery disease
Chronic left foot ischemia
Left cephalic vein superficial thrombus
Anemia of chronic disease
chronic Hyponatremia
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
History of Takotsubo CM w/recovered EF (2005)
Paroxysmall atrial fibrillation
Prior PVI (2016)
s/p PFA 08/24/23
Hypothyroidism
Elevated troponin from nonischemic myocardial injury
Lung Nodule
Celiac disease
Moderate portal hypertensive gastropathy
PLan;
A/w syncope, noted acute CHF and left calvicular, rib fxs
BRIGITTE- UA with microhematuria, 2+alb on admit, prior UA was bland
no hydro on US 08/22, but limited study
h/o left nephrosis per pt as child (old US shows small left kidney 05/2024)
suspect cardiorenal in nature, would cont diuresis per cards
given BRIGITTE would want to hold any angiogram till cr stabilizes further
Dipak score NOEL risk is 57%, HD risk 12%
chronic hyponatremia from hypervolemia, maintain FR
severe hypoalbuminemia -check U PCR , old UPEP neg, SPEP faint band but polyclonal, check FLC
recurrent pleural effusion -thoracentesis x2 this admit
Creatinine now at 2
Weights are stable. I would continue to hold for now.
With worsening renal function she is now developing a worsening metabolic acidosis.
I will start on gentle IV bicarbonate fluids
I do agree with palliative care.
-
-
Date of Service: August 27, 2024
CC / HPI / ROS
-
Mild shortness of breath with lower extremity leg pain.
Chart reviewed
Overnight events
10 point review of systems obtained negative unless stated
Labs
-
Labs:
WBC 8.5 10^3/uL (4.8-10.8) 08/27/24 06:15
RBC 3.62 10^6/uL (4.20-5.40) L 08/27/24 06:15
Hgb 12.0 g/dL (12.0-16.0) 08/27/24 06:15
Hct 34.7 % (37.0-47.0) L 08/27/24 06:15
Plt Count 362 10^3/uL (130-400) 08/27/24 06:15
Sodium 129 mmol/L (135-145) L 08/27/24 06:15
Potassium 4.3 mmol/L (3.5-5.1) 08/27/24 06:15
Chloride 105 mmol/L (98-107) 08/27/24 06:15
Carbon Dioxide 15 mmol/L (22-30) L 08/27/24 06:15
BUN 66 mg/dl (7-17) H 08/27/24 06:15
Creatinine 2.0 mg/dL (0.6-1.0) H 08/27/24 06:15
eGFR 24.64 08/27/24 06:15
Glucose 88 mg/dl (70-99) 08/27/24 06:15
Calcium 7.7 mg/dl (8.4-10.2) L 08/27/24 06:15
Phosphorus 5.2 mg/dl (2.5-4.5) H 08/27/24 06:15
Auz-P-Wqnzxuonprn Pept 8420 pg/ml 08/22/24 07:43
Albumin 1.9 g/dl (3.5-5.0) L 08/24/24 08:48
Physical Exam
-
Vital Signs:
Vital Signs
Temp Pulse Resp BP Pulse Ox
98.4 F 114 18 111/74 94
08/27/24 11:00 08/27/24 11:00 08/27/24 11:00 08/27/24 11:00 08/27/24 11:00
Respiratory:: Bilateral: Coarse
Lung Excursion:: Normal
Abdomen:: Soft
Bowel Sounds:: Normal
Extremity Edema:: +1: Bilateral:
--- NOTE | 2024-08-27 13:47 | W.PN.PUL3 ---
Today's Communication / Plan
-
- No need for thoracentesis for now
- Continue diuresis as tolerated
- Low threshold to get a follow-up chest x-ray if patient develops dyspnea to evaluate for enlarging effusion
- Pulmonary team will sign off, please call as needed
Assessment
-
Patient is not 79-year-old female who was admitted to the hospital about a week ago. Patient had an endoscopy procedure performed following which she had a syncopal episode and an unwitnessed fall. Patient was brought to the emergency room and
further imaging was suggestive of a displaced fracture of the lateral clavicle as well as minimal degenerative changes about the shoulder. Patient also noted to have lateral left 3rd through 5th rib fracture.
Patient was noted to have a large right-sided pleural effusion and had a thoracentesis performed on 08/17. Fluid study was suggestive of transudate. Patient has been on diuretics since. Over next few days patient had reaccumulation and on 08/21,
she had another thoracentesis, right side performed with more than 1 L of transudative fluid removed. Pulmonary consultation was requested for further input. Patient had similar recurrent challenging left-sided pleural effusions in the past which
were managed with an indwelling pleural catheter placement in 2023, subsequently she had a VATS procedure performed and in indwelling pleural catheter was removed.
In view of recurrent right-sided pleural effusion, pulmonary consultation was requested for further input.
#1. Recurrent right-sided pleural effusion, chronic (transudative)
- Fluid analysis is suggestive of a transudate with very low pleural fluid protein and LDH
- Etiology appears to be underlying congestive heart failure as well as hypoalbuminemia. Worsening pulmonary hypertension can also contribute towards pleural effusions. Ultrasound abdomen not suggestive of cirrhosis. Portal gastropathy noted on
endoscopy however.
- Right-sided pleural effusion has been stable for a long time with recent exacerbation requiring thoracentesis x 2 during this hospitalization
- Thoracentesis 08/21, 1350 cc of clear yellow pleural fluid removed, thoracentesis 08/17, 1500 cc of straw-colored pleural fluid evacuated (Cytology negative)
- Continue IV diuresis and spironolactone as tolerated
- Will favor conservative management for now, low-salt diet, and diuresis as tolerated and as needed thoracentesis
- Consider palliative care consult. Patient is cachectic appearing, appears malnourished, has worsening pulmonary hypertension and at risk of additional complications when subjected to invasive procedures.
- Increase activity as tolerated, incentive spirometry/Acapella flutter valve
-Follow-up chest x-ray 08/27, no significant effusion requiring thoracentesis. Minimal lower lobe atelectasis noted. Patient continues to be afebrile, has normal white count, saturating normal on room air with a normal pulmonary exam. Hold off
antibiotics
- Pulmonary team will sign off, please call as needed
#2. History of recurrent left-sided pleural effusion, s/p multiple thoracentesis
- S/p indwelling pleural catheter placement in 2023, subsequently removed after she had VATS decortication on the left side.
- Fluid analysis has been mostly transudative with negative cytology.
#3. Pulmonary hypertension.
- Suspect group II with underlying heart failure with preserved ejection fraction
- Recent echo was in the setting of large pleural effusion, volume overload which could have confounded the results
- Continue to optimize volume status, O2 support to keep saturations above 90%
- Cardiology service on case
- Poor prognosis in the setting of worsening pulmonary hypertension, estimated pulmonary artery systolic pressure 70 now compared to 45-50 in the past.
#4. Left rib fracture, 3rd through 5th.
- Traumatic, after a fall, associated with left clavicle fracture as well.
- Continue incentive spirometry, pain control, activity as tolerated.
#5. Acute hypoxic respiratory failure.
- This appears to be multifactorial in the setting of worsening pleural effusion, pulmonary congestion due to CHF, pulmonary hypertension as well as fall with left multiple rib fracture.
- Patient currently saturating normally on room air
- Patient is chronically anticoagulated with Eliquis, making pulmonary embolism less likely.
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
Celiac Disease 1975
Takotsobu cardiomyopathy-recovered EF
s/p CARDIOGENIC SHOCK 04/08/05 EF 20% IMPROVED TO 50 % 04/09/[address]
Former smoker >20 pack years, quit 30 years ago
Hiatal hernia
Lyme disease
Carotid Disease
Hypertension
PANCREATITIS 2005
Irritable bowel disease
CHF
SVT/Paroxysmal atrial fibrillation s/p Cardioversion 06/18/2016
Endometrial polyps s/p D & C, polypectomy
HYPERLIPIDEMIA - MIXED
Fracture right foot/ankle in Feb 2018
Lymphocytic Colitis
Ambulatory dysfunction/Balance issues
Inguinal herniographies xs 2 02/25/2011
Vein removal in [place] inner foot 2020
Bilateral cataract surgeries 2020
History of pancreatitis 2005
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
Total time spent on this consultation/encounter __42__ minutes which includes review of history, physical exam, medications, laboratory data, personal review of imaging, extensive review of outpatient records, discussion with care team and
respiratory therapy.
Data:
ECHO 08/2024: Left ventricle is small in size. Normal left ventricular systolic function.
Left ventricular ejection fraction is 60-65% by volumetric assessment. Normal
regional wall motion. Mild concentric left ventricular hypertrophy. Stage II
diastolic dysfunction suggestive of abnormal relaxation and increased filling
pressures.
Normal right ventricular size and function. Pacer wire seen in right ventricle.
Mild mitral regurgitation.
Aortic sclerosis without stenosis.
Severe tricuspid regurgitation. Estimated pulmonary artery pressure of 70 mmHg
assuming a right atrial pressure of 3 mmHg.
Small to moderate pericardial effusion without evidence of hemodynamic
compromise. Pleural effusion present.
Compared to prior study of 11/25/2023:
Tricuspid regurgitation has worsened from moderate to severe
Pulmonary artery systolic pressure previously estimated at 45-50 mmHg and is
now 70 mmHg
Pericardial effusion is larger, previously small in size
Subjective Data
-
Date of Service:
Date of Service: August 27, 2024
Subjective:
Patient comfortably sitting in chair on room air, accompanied by a friend and granddaughter at bedside
Review of Systems
Genitourinary: Other (No new symptoms reported.)
Objective Data
Data Reviewed
Vital Signs / I&O / Oxygen:
Vital Signs
Temp Pulse Resp BP Pulse Ox
98.4 F 114 18 111/74 94
08/27/24 11:00 08/27/24 11:00 08/27/24 11:00 08/27/24 11:00 08/27/24 11:00
Intake and Output
08/26/24 08/27/24 08/28/24
06:59 06:59 06:59
Intake Total 940 / 940 660 / 660
Output Total 100 / 100
Balance 940 / 940 560 / 560
SaO2 94
Nasal Cannula flow liters per 2
minute
Physical Exam
General: Comfortable
HEENT: Normocephalic
Cardiovascular: S1-S2 and Peripheral Edema (Pedal edema nearly resolved)
Respiratory: Rhonchi (Minimally inspiratory Rales in the right lower lobe otherwise fairly unremarkable pulmonary exam)
GI: Soft and Non Distended
Neurology: Awake and Alert
Skin: Warm
Labs/Micro/Reports
Lab Data
08/27/24 06:15
08/27/24 06:15
Microbiology
08/21/24 10:39 Pleural Fluid Body Fluid Culture - Final
No Growth After 72 Hours
08/21/24 10:39 Pleural Fluid Gram Stain - Final
[2024-08-27] MEDS: SODIUM BICARBONATE 1150 MEQ IV (14:48)
--- NOTE | 2024-08-27 15:53 | PTCARENOTE ---
Pt AAOx3, forgetful. LAST; has sl decreased ROM LUE d/t arm sling; has discomfort when moving LLE. OOB to chair with assist x2/dariusz-walker, arlen well. VSS. Telemetry:A fib with occ AV/V paced beats. On room air- pulse ox 95%, pt appears
breathless at times after speaking; denies SOB. Abd soft, arlen PO. Voids on bedpan/BSC. Resting in bed at present. Will continue to monitor.
[2024-08-27] MEDS: BenGay-Like TOPICAL (18:37)
[2024-08-27] MEDS: ASPIR LOW (ENTERIC COATED) 81 MG PO (20:21)
[2024-08-27] MEDS: REMOVE LIDOCAINE PATCH 2 PATCH REMOVE (20:31)
[2024-08-27] MEDS: NEURONTIN 100 MG PO (21:38)
[2024-08-28] VITALS (8 sets, daily range): BP systolic 90–119; BP diastolic 42–64; PULSE 84; O2SAT 97–98; BMI 22.2
[2024-08-28] MEDS: TYLENOL PO ×2 (00:48→05:13)
[2024-08-28] MEDS: ZOFRAN 4 MG IV (01:26)
[2024-08-28] MEDS: ROXICODONE 5 MG PO ×3 (01:26→21:56)
[2024-08-28] MEDS: SODIUM BICARBONATE 1150 MEQ IV (05:21)
[2024-08-28] MEDS: SYNTHROID 150 MCG PO (05:22)
[2024-08-28 07:27] LABS: Hematocrit 31.8 % (37.0-47.0); Hemoglobin 11.1 g/dL (12.0-16.0); Mean Corp Hgb Conc. 34.9 g/dL (33.0-37.0); Mean Corpuscular Volume 94.6 fL (81.0-99.0); Platelet Count 371 10^3/uL (130-400); Red Cell Dist. Width 19.7 % (11.5-14.5)
--- NOTE | 2024-08-28 07:39 | W.PN.HOSP.TC ---
Today's Communication/Plan
-
diuresis as per nephro
pain control
increase Vit D supplementation to weekly high dose
PT/OT
wound care
Assessment / Plan
Assessment / Plan
Physical Exam
General: no acute distress appears comfortable
HEENT: NormoCephalic, Moist mucous membranes and Atraumatic
Respiratory: Bibasilar crackles
Cardiac: S1/S2 and Regular Rhythm; No Murmur or Rub
GI: Soft, Non Tender, abd distended and Normal Bowel Sounds
Musculoskeletal: No Clubbing, No Cyanosis, Left arm with edema, Left arm in sling, +2 pitting edema LUE,Bilateral lower extremities edema +1, left toes cyanotic appearance
Neuro: Lethargic but arousable oriented x3 conversant coherent
Psych: Calm
HPI: 79F hx pleural effusion HFpEF HTN afib ppm Celiac dz HLD pulm htn here for evaluation syncope with associate clavicle and rib fractures likely d/t fall. Syncope had occurred while taking bowel prep for capsule endoscopy. Patient endorsed
feeling lightheaded/dehydrated prior to event.
#Syncope likely vasovagal (patient was undergoing bowel prep for capsule endoscopy at the time)
Head CT negative
Monitor daily orthostatic vital signs
Patient has not been able to stand for standing blood pressure d/t left lower ext pain as below
#Acute hypoxic respiratory insufficiency
#Left clavicle fracture-sling in place
#Lt 3rd thru 5th rib fractures
#traumatic fractures, likely osteoporosis contributing
Acute hypoxia multifactorial from poor inspiratory effort from rib fractures, chronic right pleural effusion, and abdominal distention from constipation
Thoracic Lumbar XR appreciated multilevel discogenic degenerative disease, small to mod b/l pleural effusions, acute interstitial/alveolar cardiogenic edema, large dense b/l lower lobe airspace consolidations most likely d/t atelectasis
Appreciate orthopedic surgery input, recommend conservative management with left arm sling for left clavicle fracture
Oxygen dependent nasal cannula throughout most of hospitalization, weaned off to room air 08.26.24
Continue pain control, incentive spirometry
Pain regimen tapered down to oxycodone 5 mg Q6HPRN mod/severe pain and Dilaudid IV 0.25 mg Q4HPRN severe breakthrough pain, regimen reduced d/t concern oversedation and side effects nausea and loss of appetite
Continued scheduled Tylenol, Bengay-like cream, Gabapentin 100 mg TID added for possible neuropathic pain ('pins and needle' sensation Lower ext's)
# Chronic pleural effusions suspected multifactorial from partial hypoalbuminemia, deconditioning, possible malnutrition unclear severity
# Right pleural effusion status post thoracentesis on 05/23/2024 with symptomatic improvement in 1350 cc of fluid removed
# History of recurrent left-sided pleural effusion status post admission to [facility] [place] [facility] with VATS and pulmonary decortication 01/2024.
# Ascites
Status post right thoracentesis on 08/17, draining 1.5 L, cultures negative for growth, path negative for malignancy, shows inflammation
Status post right thoracentesis 08/19, draining 1.35 L
Cardiology and pulmonology following, changed from IV Lasix to Bumex 1 mg IV twice daily, since placed on hold w worsening kidney function 08/27
repeat chest x-ray on Sunday 08/27 appreciated no significant re-accumulation pleural effusion
Not enough fluid in the abdomen for paracentesis
# Acute on chronic heart failure with preserved ejection fraction
Cardiology eval appreciated, changed from IV Lasix to Bumex 1 mg IV twice daily, later increased to 2 mg IV BID as below
Diuresis since placed on hold d/t worsening kidney function 08/27
#ANNA
#Metabolic Acidosis
Possibly cardiorenal syndrome
Cardio and Nephro eval appreciated
diuresis placed on hold w/ worsening kidney function 08/27 started on bicarb gtt as per Nephro, however no improvement noted, switched back to aggressive diuresis Bumex increased to 2 mg IV BID
#Severe constipation
#Ingested Capsule endoscopy
Status post enema 08/21
Continue aggressive bowel regimen
passed capsule endoscopy 08/26
#Peripheral artery disease
#Cyanotic left foot
#Acute on Chronic left foot ischemia heel wound
Appreciate vascular surgery input, patient has chronic SFA stenosis
Vascular surgery eval appreciated eventual angiography with attempted left SFA angioplasty/stenting planned
Nephro recommends holding angiography at this time d/t ANNA as above
wound care consult appreciated
#Left cephalic vein superficial thrombus
Supportive care
# Anemia of chronic disease
Ingested capsule endoscopy prior to coming to hospital, has kit for retrieval when passes. Capsule passed 08/26 as above
Hemoglobin dipped to 7.8
Status post 1 unit packed red blood cells with appropriate response, Hgb has remained stable since
Continue to monitor, transfuse as needed
#Hyponatremia
Fluid restrict, trend sodium
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
#History of Takotsubo CM w/recovered EF (2005)
# Paroxysmal atrial fibrillation
# Prior PVI (2016)
# s/p PFA 08/24/23
-continue GLAZIER STRUCTURAL GLASS eliquis 2.5 bid
-continue GLAZIER STRUCTURAL GLASS metoprolol
-cardiology increased amiodarone to 200 mg twice a day, cont
# Hypothyroidism
-Synthroid continued
-TFT appears to suggest Hypothyroidism uncontrolled, TSH elevated
-pt endorses compliance with synthroid and no recent changes in dose
-repeated TFT shows TSH significantly improved trending down
-cont current synthroid for now, outpt follow up with Endocrinology recommended
#Severe Vit D deficiency
Home Vit D supplementation increased to High Dose weekly supplement
#Elevated troponin from nonischemic myocardial injury
#Lung Nodule
# Celiac disease
gluten free diet
#Moderate portal hypertensive gastropathy
PT/OT appreciated SNF rehab
DVT PPX on Eliquis
Code status - full code
Discussed with patient and patient's son All
Patient with multiple comorbidities�palliative care consulted pending eval Wed
Disposition�short-term rehab at [facility] when stable
I spent a total of 50 minutes with the patient or on the floor. More than 50% of this time involved counseling and coordination of care.
Anticipated Discharge: > 48 hours
Subjective/Interval History
-
Date of Service: August 28, 2024
No acute distress, appears comfortable at rest. Pain left lower ext persists. Diarrhea resolves, endorses normal bowel movements. Reports improvement in appetite though still eating little.
Objective Data
-
Labs:
Laboratory Results
08/28/24
07:02
WBC 10.5
Hgb 11.1 L
Hct 31.8 L
Plt Count 371
Sodium Pending
Potassium Pending
Chloride Pending
Carbon Dioxide Pending
BUN Pending
Creatinine Pending
Glucose Pending
Calcium Pending
Vital Signs:
Vital Signs
Temp Pulse Resp BP Pulse Ox
97.3 F 83 20 118/62 95
08/28/24 03:18 08/28/24 03:18 08/28/24 03:18 08/28/24 03:18 08/28/24 03:18
I&O
08/27/24 08/28/24 08/29/24
06:59 06:59 06:59
Intake Total 660 / 660 980 / 980
Output Total 100 / 100
Balance 560 / 560 980 / 980
[2024-08-28 08:16] LABS: Blood Urea Nitrogen 72 mg/dl (7-17); Calcium 7.3 mg/dl (8.4-10.2); Carbon Dioxide 15 mmol/L (22-30); Chloride 102 mmol/L (98-107); Estimated Creatinine Clearance 19 ml/min; Glucose 138 mg/dl (70-99); Magnesium 1.6 mg/dl (1.6-2.3); Potassium 4.3 mmol/L (3.5-5.1); Sodium 126 mmol/L (135-145); eGFR 21.97
[2024-08-28 08:25] LABS: Vitamin D, 25-OH*** < 12.8 ng/mL (30-80)
[2024-08-28] MEDS: LIDOCAINE 4% PATCH 2 PATCH TOPICAL (08:38)
[2024-08-28] MEDS: SANTYL OINTMENT 1 APPLIC TOPICAL (08:39)
[2024-08-28] MEDS: VITAMIN C 1000 MG PO (08:40)
[2024-08-28] MEDS: ZETIA 10 MG PO (08:40)
[2024-08-28] MEDS: KCL 20 MEQ PO (08:40)
[2024-08-28] MEDS: VITAMIN D3 (cholecalciferol) 50 MCG PO (08:40)
[2024-08-28] MEDS: VITAMIN B-12 1000 MCG PO (08:40)
[2024-08-28] MEDS: NEURONTIN 100 MG PO ×3 (08:40→21:57)
[2024-08-28] MEDS: PACERONE 200 MG PO ×2 (08:40→20:26)
[2024-08-28] MEDS: ELIQUIS 2.5 MG PO ×2 (08:40→20:26)
[2024-08-28] MEDS: OSCAL CAL 500 500 MG PO (08:40)
[2024-08-28] MEDS: BenGay-Like 1 APPLIC TOPICAL ×3 (08:41→20:27)
[2024-08-28] MEDS: TOPROL XL 25 MG PO (08:41)
[2024-08-28] MEDS: TYLENOL 650 MG PO ×4 (08:41→20:26)
[2024-08-28] MEDS: HYDROPHOR 1 APPLIC TOPICAL ×2 (08:42→20:27)
[2024-08-28] MEDS: MIRALAX PO ×2 (08:48→20:40)
[2024-08-28] MEDS: SENOKOT-S PO ×2 (08:49→20:40)
--- NOTE | 2024-08-28 11:57 | CM ---
Weaned off oxygen Pox 97%.
Pain meds as needed.
PT still recommends SNF
Family and pt indicate wanting [facility] [place].
Please check with [facility] [place] for a bed availability.
Nephrology involved .
Palliative care to evaluate tomorrow.
Maintained on Diuretics.
[facility]
report [phone]
fax [phone]
PLAN To [facility] at [place] if bed available .
--- NOTE | 2024-08-28 12:17 | W.PN.NEPH.PH ---
Today's Communication / Plan
-
Discontinue bicarbonate drip start her on diuretics increased dose
Assessment/Plan
-
IMP:
Syncope likely vasovagal (patient was undergoing bowel prep for capsule endoscopy at the time)
Acute hypoxic respiratory insufficiency
Acute on chronic heart failure with preserved ejection fraction
Brigitte-baseline cr 1.1
Left clavicle fracture-sling in place
Lt 3rd thru 5th rib fractures
traumatic fractures, likely osteoporosis contributing
Chronic pleural effusions multiple thoracentesis this admit right 08/17 and 08/19
History of recurrent left-sided pleural effusion status post admission to [facility] with VATS and pulmonary decortication 01/2024.
Ascites
Severe constipation
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
Peripheral artery disease
Chronic left foot ischemia
Left cephalic vein superficial thrombus
Anemia of chronic disease
chronic Hyponatremia
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
History of Takotsubo CM w/recovered EF (2005)
Paroxysmall atrial fibrillation
Prior PVI (2016)
s/p PFA 08/24/23
Hypothyroidism
Elevated troponin from nonischemic myocardial injury
Lung Nodule
Celiac disease
Moderate portal hypertensive gastropathy
PLan;
A/w syncope, noted acute CHF and left calvicular, rib fxs
BRIGITTE- UA with microhematuria, 2+alb on admit, prior UA was bland
no hydro on US 08/22, but limited study
h/o left nephrosis per pt as child (old US shows small left kidney 05/2024)
s
given BRIGITTE would want to hold any angiogram till cr stabilizes further
Dipak score NOEL risk is 57%, HD risk 12%
chronic hyponatremia from hypervolemia, maintain FR
severe hypoalbuminemia -U PCR -0.5, old UPEP neg, SPEP faint band but polyclonal, check FLC
recurrent pleural effusion -thoracentesis x2 this admit
Creatinine now at 2.2 with worsening hyponatremia and metabolic acidosis unresponsive to bicarbonate
I will restart her Bumex at a higher dose 2 mg twice a day.
I discussed dialysis with her though she would be high risk with high mortality rate at 6 months.
Reassess after increasing diuretics and address in next 24 hours.
Patient expressed that she is not opposed to dialysis
-
-
Date of Service: August 28, 2024
CC / HPI / ROS
-
Mild shortness of breath with lower extremity leg pain.
Chart reviewed
no Overnight events
10 point review of systems obtained negative unless stated
Labs
-
Labs:
WBC 10.5 10^3/uL (4.8-10.8) 08/28/24 07:02
RBC 3.36 10^6/uL (4.20-5.40) L 08/28/24 07:02
Hgb 11.1 g/dL (12.0-16.0) L 08/28/24 07:02
Hct 31.8 % (37.0-47.0) L 08/28/24 07:02
Plt Count 371 10^3/uL (130-400) 08/28/24 07:02
Sodium 126 mmol/L (135-145) L 08/28/24 07:02
Potassium 4.3 mmol/L (3.5-5.1) 08/28/24 07:02
Chloride 102 mmol/L (98-107) 08/28/24 07:02
Carbon Dioxide 15 mmol/L (22-30) L 08/28/24 07:02
BUN 72 mg/dl (7-17) H 08/28/24 07:02
Creatinine 2.2 mg/dL (0.6-1.0) H 08/28/24 07:02
eGFR 21.97 08/28/24 07:02
Glucose 138 mg/dl (70-99) H 08/28/24 07:02
Calcium 7.3 mg/dl (8.4-10.2) L 08/28/24 07:02
Phosphorus 5.5 mg/dl (2.5-4.5) H 08/28/24 07:02
Rha-M-Weewdavgier Pept 8420 pg/ml 08/22/24 07:43
Albumin 1.9 g/dl (3.5-5.0) L 08/24/24 08:48
Physical Exam
-
Vital Signs:
Vital Signs
Temp Pulse Resp BP Pulse Ox
97.8 F 71 18 119/64 97
08/28/24 12:12 08/28/24 12:12 08/28/24 12:12 08/28/24 12:12 08/28/24 12:12
Respiratory:: Bilateral: Coarse
Lung Excursion:: Normal
Abdomen:: Soft
Bowel Sounds:: Normal
Extremity Edema:: +1: Bilateral:
[2024-08-28] MEDS: MAALOX 30 ML PO (13:22)
[2024-08-28] MEDS: BUMEX 2 MG IV (13:22)
[2024-08-28] MEDS: DUPHALAC/CHRONULAC PO (13:22)
--- NOTE | 2024-08-28 15:17 | W.PN.CARDCBS ---
Addendum entered and electronically signed by Jose Alberto Tran MD 08/28/24 18:53:
Extremely pleasant and very complex 79-year-old woman admitted now after a syncopal episode with a clavicular fracture. We are asked to review regarding HFpEF and edema related to hypoalbuminemia with bilateral pleural effusions and prior history
of VATS. Recent hospital course has been notable for right thoracentesis x 2 August 17 and August 21 ischemic left lower extremity pain and she is tentatively planned for left lower extremity arteriography.
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
in 2023, now on amiodarone, remote Takotsubo cardiomyopathy, hypertension, hyperlipidemia, and anemia
PSH: In addition to above, herniorrhaphy, lumpectomy cataracts
Current meds: Apixaban 2.5 mg twice daily, aspirin 81 mg a day, ezetimibe 10 mg daily, Synthroid 150 mcg daily, metoprolol ER 25 mg daily, atorvastatin 10 mg 3 days a week, potassium 20 mill equivalents daily, lidocaine patch, B12, MiraLAX,
bumetanide 1 mg IV twice daily on hold, amiodarone 200 mg twice daily, Neurontin 100 mg 3 times daily,
114/62, pulse 82, respirate 18, sats 97%, weight is 62.2 kg, up 1.2 kg, 1 818/62, frail, cachectic, discouraged regarding her rising creatinine, seen in ultrasound, diminished breath sounds in the lungs, regular rate and rhythm,Soft systolic murmur,
neck veins not dramatically elevated, abdomen somewhat distended, toes are cyanotic left greater than right
Telemetry: Sinus rhythm at present
Hemoglobin is 11.1, sodium is 126, potassium is 4.3, BUN and creatinine are 72 and 2.2, had been 2.0,
chest x-ray yesterday effusions
Upper extremity venous ultrasound: Thrombus in left cephalic vein
Arterial ultrasound 08/23/2024: Monophasic flow in the mid SFA, common femoral on the left is monophasic
Impression:
As below per Evelyn Barry. Reviewed in detail and agree, unless otherwise specified below.
At present, major issues are:
Ongoing total body volume overload with hypoalbuminemia with intravascular volume depletion/HFpEF
Limb threatening left lower extremity ischemia
Acute on chronic kidney disease approaching stage V
Paroxysmal atrial fibrillation
Plan:
Unfortunately, she continues to struggle on multiple fronts.
She remains volume overloaded with relative intravascular depletion. Bicarb drip now stopped, diuretics to be increased. The major underlying issue is her hypoalbuminemia/HFpEF, which we have been unable to successfully address.
She has limb threatening ischemia of the right lower extremity. There is underlying PAD, but I wonder if her abrupt change could relate to a cardioembolic event given frequent atrial fibrillation. She has remained anticoagulated throughout this
hospital stay, but over the recent past may have had interruptions.
Is not a candidate for peripheral arterial intervention given current renal function.
She is very tired and frustrated, very discouraged, and will be meeting with her family later this evening. We will need to be open to discussions about goals of care and level of care.
For now, defer volume management to nephrology.
For now, continue anticoagulation, Toprol, amiodarone
Prognosis is guarded.
Original Note:
Today's Communication / Plan
-
bumex per nephrology. follow Cr
continue eliquis, toprol, amiodarone
remains full code at this time
Impression / Plan
-
PCP: Stella Sutherland PA-C
[employer]: Dr. Kiera Diaz
Impression:
Admitted with fall, clavicle fracture and possible acute HF 08/15/24
Syncope
Fall and left clavicle fracture
Acute on chronic HFpEF
Recurrent pleural effusion
s/p Left Asept pleural catheter placement 11/29/23, removed after admission to [place] with VATS and pulmonary decortication 01/2024
Small to moderate B/L pleural effusions by CXR 08/15/2024
R thoracentesis 08/17/2024 for 1500 cc-no growth on culture, fluid studies suggestive of transudate
R thoracentesis 08/21/2024 1350cc clear yellow
ANNA
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
Hyponatremia
Paroxysmal atrial fibrillation
Prior PVI (2016)
s/p PFA 08/24/23
Tikosyn stopped during [facility] rehab stay 02/2024 and now on chronic amiodarone
recurrent afib 08/22/2024 and Amio increased to 200 mg bid
Chronic anticoagulation on Eliquis
Takotsubo CM w/recovered EF (2005)
Negative workup for cardiac amyloid
HLD
HTN
MR
Renal nephrosis
Lung Nodule (2021, stable)
Anemia
celiac dz
Echo 05/18/2023: EF 69%, stage II diastolic dysfunction. Moderately dilated right atrium. Mild to moderate MR. Mild TR. PAP 36 mmHg. Small pericardial effusion
Echo 11/25/2023: EF 55-60%, global longitudinal strain is -14.2, stage III diastolic dysfunction, mild MR, dilated left atrium, aortic sclerosis, normal RV, pulmonary artery systolic pressure 45-50 mmHg
Echo 08/16/2024: EF 60-65%, mild cLVH, stage II diastolic dysfunction, mild MR, severe TR, estimated PAP 70 mmHg, small to moderate pericardial effusion w/o evidence of hemodynamic compromise
Plan:
- She has hypoalbuminemia of unclear etiology. albumin has been repleted this admission
- Also with recurrent pleural effusions. Status post right thoracentesis 08/17 and 08/21
- Creatinine up to 2.2, not responsive to bicarb. Bumex dosing increased by nephrology, and will assess response. As outpatient she was on torsemide 20 mg daily
- nephro also following worsening hyponatremia
- Previous dry weight was 131 pounds on 05/26/2024
- Outpatient dose of spironolactone 12.5 mg MWF on hold due to ANNA
- Outpatient dose of Toprol XL 25 mg daily has been continued
- Patient is not chronically on NILAY/ARB/ARNI due to hypotension/now with CKD
- Patient is not chronically on an SGLT2 inhibitor due to history of UTI
- EF stable by echo this admission
- prior cardiac amyloid work up negative
- There is also concern for ischemia of left foot and is being considered for angiogram, however will attempt to stabilize renal function and volume status prior to completing. Not felt to be a good candidate for revascularization. vascular
following
- She continues with A-fib/a flutter on review of telemetry. Heart rates are controlled. Continue amiodarone. Could consider for eventual AVJ as patient has pacemaker in place
- Continue Eliquis 2.5 mg twice daily
- Syncope on admission felt to be secondary to acute on chronic anemia, frequent defecation, and orthostasis
- replete Vitamin D per primary service
- Palliative care was consulted in outpatient setting and patient signed onto their services. Consulted 08/24 for inpatient evaluation-they anticipate seeing her on Mon 08/27. pending clinical status, change in level of care may be appropriate.
currently full code. prognosis appears poor
HPI: Patient came to [facility] ER yesterday after fall and is now being mated with syncope, clavicle fracture and possible HFpEF with consultation to cardiology. Patient was seen in the office on 07/17/2024 and her proBNP was felt to be acceptable
although her weight was up to 136 lbs with her previous weight being 133 lbs, there were also moderate bilateral pleural effusions. Usual dose of torsemide 20 mg daily was continued and the patient was agreeable to referral for palliative care
assessment. eCW tasks was reviewed by me and patient was given 1 unit PRBCs on 08/02/2024 for Hgb of 7.7 and the Hgb only improved up to 8.2 so a second unit was given on 08/06/24. Remote device check 08/08/2024 had a 7-hour long atrial flutter episode
and patient was already on Eliquis, no other changes, but later that day patient called with weight gain and was told to take additional torsemide 20 mg for a total of 40 mg daily on 08/08/2024 and 08/09/2024 and although she lost 4 lbs she had ongoing
GILLIAM and fatigue. Then patient was preparing for a scheduled capsule endoscopy for her celiac disease by taking Miralax and after swallowing the capsule she felt disoriented, lost her sense of balance and had a fall. Patient was brought to [facility] ER
and admitted for syncope, clavicle fracture and possible acute on chronic HFpEF. Patient was given Lasix 40 mg IV x 1 in the ER. Her Cre on arrival was 1.0 and today is up to 1.4.
Progress Note - [employer]
Subjective
Date of Service: August 28, 2024
resting comfortably
Objective
Labs:
08/28/24 07:02
08/28/24 07:02
Labs
Hgb 11.1 g/dL (12.0-16.0) L 08/28/24 07:02
Hct 31.8 % (37.0-47.0) L 08/28/24 07:02
Plt Count 371 10^3/uL (130-400) 08/28/24 07:02
Sodium 126 mmol/L (135-145) L 08/28/24 07:02
Potassium 4.3 mmol/L (3.5-5.1) 08/28/24 07:02
BUN 72 mg/dl (7-17) H 08/28/24 07:02
Creatinine 2.2 mg/dL (0.6-1.0) H 08/28/24 07:02
Glucose 138 mg/dl (70-99) H 08/28/24 07:02
Vital Signs and I&O:
Vital Signs
Temp Pulse Resp BP Pulse Ox
97.8 F 71 18 119/64 97
08/28/24 12:12 08/28/24 12:12 08/28/24 12:12 08/28/24 12:12 08/28/24 12:12
Vital Signs
Temp Pulse Resp BP Pulse Ox
97.8 F 71 18 119/64 97
08/28/24 12:12 08/28/24 12:12 08/28/24 12:12 08/28/24 12:12 08/28/24 12:12
Intake & Output
08/26/24 08/27/24 08/28/24 08/29/24
07:59 07:59 07:59 07:59
Intake Total 940 / 940 660 / 660 980 / 1030 50 / 50
Output Total 100 / 100
Balance 940 / 940 560 / 560 980 / 1030 50 / 50
Physical Exam
Physical Exam
GEN: No distress, resting comfortably. on supp O2. ill appearing
HEENT: supple, mmm
LUNGS: no audible wheezes
CV: Reg rhythm on tele
EXT: No cyanosis, clubbing. 3+ edema of B/L LE
SKIN: Warm, pink, dry. No rash. Dressing to LLE
[2024-08-28] MEDS: BenGay-Like TOPICAL (18:13)
--- NOTE | 2024-08-28 19:45 | W.CON.PAL ---
Consultation
-
Date/Time Consultation Requested: 08/27
Date/Time Consultation Performed: 08/29
Performing Provider: Phoebe BATES
Reason for Consult: Goals of Care Discussion
Reason for Admission
Illness Course/HPI
79 year old F with PMH of heart failure with preserved ejection fraction, severe hypoalbuminemia c/b recurrent L pleural effusion s/p pleurex and VATS, persistent atrial fibrillation s/p pacemaker, CKD, celiac disease admitted after a fall/syncope
while prepping for EGD. Upon admission was found to have clavicle fracture as well as rib fractures.
Complicated hospital course 2/2 fluid overload, now with large R pleural effusion which is recurrent. s/p thoracentesis, 2/2 heart failure, worsening pHTN and hypoalbuminemia. She is being treated for acute on chronic heart failure with diuretics.
Course also now c/b ischemic left foot. Known chronic SFA stenosis. PLanned for angiogram with vascular this week but now with ANNA, nephrology following and holding procedures for now. Acidosis is unresponsive to bicarb, creatinine rising with plans
to restart higher dose bumex tomorrow and assess possible need for HD. Per nephrology note, this was discussed with her and she is not opposed to HD although feel she would be a poor candidate.
Patient recently seen as an outpatient and established with palliative care, seen once in the home. Consult for GOC.
Seen at bedside with no family. Periods of confusion but overall has a good idea of her medical issues. Hospice has been discussed with her and she is not interested at this time, still very much open to procedures and medical testing, etc. She does
want to go home and is sick of being in the hospital but knows right now its needed. Discussed renal function - she is still thinking about if she would want HD if it comes to that. Still unsure and wants to discuss with her family.
Objective Data
-
Objective Data:
Vital Signs
Temp Pulse Resp BP Pulse Ox
97.9 F 81 18 117/62 98
08/28/24 16:00 08/28/24 16:00 08/28/24 16:00 08/28/24 16:00 08/28/24 16:00
Laboratory Results
08/28/24 07:02
08/28/24 07:02
Total Protein 5.1 g/dl (6.3-8.2) L 08/24/24 08:48
Albumin 1.9 g/dl (3.5-5.0) L 08/24/24 08:48
Free T4 1.55 ng/dl (0.78-2.19) 08/27/24 06:15
Urine Color Yellow 08/27/24 04:31
Urine Clarity Cloudy (Clear) 08/27/24 04:31
Urine pH 5.0 (5.0-9.0) 08/27/24 04:31
Ur Specific [place] 1.015 (<1.030) 08/27/24 04:31
Urine Ketones Negative (Negative) 08/27/24 04:31
Urine Occult Blood 3+ (Negative) A 08/27/24 04:31
Urine Nitrite Negative (Negative) 08/27/24 04:31
Urine Bilirubin Negative (Negative) 08/27/24 04:31
Ur Leukocyte Esterase 3+ (Negative) A 08/27/24 04:31
Urine Albumin 2+ (Neg - Trace) A 08/27/24 04:31
Palliative Performance Scale
Palliative Performance Scale:
PPS Level Ambulation Activity & Evidence of Disease Self Care Intake Conscious Level
100% Full Normal Activity & Work; Full Intake Full
No Evidence of Disease
90% Full Normal Activity & Work; Full Normal Full
Some Evidence of Disease
80% Full Normal Activity with Effort Full Normal or Full
Some Evidence of Disease Reduced
70% Reduced Unable Normal Job/Work Full Normal or Full
Significant Disease Reduced
60% Reduced Unable Hobby/Housework Occasional Normal or Full or Confusion
Significant Disease Assistance Reduced
50% Mainly Sit/Lie Unable to do Any Work Considerable Normal or Full or Confusion
Extensive Disease Assistance Req'd Reduced
40% Mainly in Bed Unable to do Most Activity Mainly Assistance Normal or Full or Drowsy;
Extensive Disease Reduced +/- Confusion
30% Totally Bed Unable to do Any Activity Total Care Normal or Full or Drowsy;
Bound Extensive Disease Reduced +/- Confusion
20% Totally Bed Bound Unable to do Any Activity Total Care Minimal to Full or Drowsy;
Extensive Disease Sips +/- Confusion
10% Totally Bed Bound Unable to do Any Activity Total Care Mouth Care Drowsy or Coma;
Extensive Disease Only +/- Confusion
0%
PPS Score Level:
Palliative Performance Score Response
Palliative Performance Score Response: 50%
Physical Exam
-
General: No Apparent Distress and Cachectic
HEENT: Normocephalic
Respiratory: Clear to Auscultation
Cardiac: Regular Rhythm
GI: Soft and Nondistended
Skin: Warm
Neuro: Awake and Alert
Psych: Anxious
Assessment / Plan
-
Assessment/Plan:
79 year old F with multiple chronic medical conditions now with ANNA, anasarca 2/2 hypoalbuminemia, pleural effusions. POssible need for HD.
- not interested in hospice at this time
- would like full medical care to continue
- discussed possible HD need - she is familiar as she has family who passed on HD. She is not sure she would want to do this, but is still thinking about it if its needed. Discussed if it progresses to this and she does not want to pursue, hospice
would be most appropriate plan of care.
Care Reviewed
Data Reviewed
Radiology procedure: Image Reviewed
Medical Tests: I reviewed
Reviewed with: Patient and Physician
[2024-08-28] MEDS: REMOVE LIDOCAINE PATCH 2 PATCH REMOVE (20:29)
[2024-08-28] MEDS: ASPIR LOW (ENTERIC COATED) 81 MG PO (20:29)
[2024-08-29] VITALS (7 sets, daily range): BP systolic 95–130; BP diastolic 49–71; BMI 22.1
[2024-08-29] MEDS: BUMEX IV ×2 (00:38→20:45)
[2024-08-29] MEDS: TYLENOL PO (01:17)
[2024-08-29] MEDS: TYLENOL 650 MG PO ×5 (03:18→21:02)
[2024-08-29] MEDS: SYNTHROID 150 MCG PO (04:06)
[2024-08-29] MEDS: BENADRYL ELIXIR 12.5 MG PO (04:06)
--- NOTE | 2024-08-29 07:49 | W.PN.HOSP.TC ---
Today's Communication/Plan
-
cont diuresis as per nephro
pain control
PT/OT
monitor renal function Na
wound care
Palliative eval
High Dose Vitamin D supplementation
Assessment / Plan
Assessment / Plan
Physical Exam
General: no acute distress appears comfortable
HEENT: NormoCephalic, Moist mucous membranes and Atraumatic
Respiratory: Bibasilar crackles
Cardiac: S1/S2 and Regular Rhythm; No Murmur or Rub
GI: Soft, Non Tender, abd distended and Normal Bowel Sounds
Musculoskeletal: No Clubbing, No Cyanosis, Left arm with edema, Left arm in sling, +2 pitting edema LUE,Bilateral lower extremities edema +1, left toes cyanotic appearance
Neuro: AO x3 conversant coherent
Psych: Calm
HPI: 79F hx pleural effusion HFpEF HTN afib ppm Celiac dz HLD pulm htn here for evaluation syncope with associate clavicle and rib fractures likely d/t fall. Syncope had occurred while taking bowel prep for capsule endoscopy. Patient endorsed
feeling lightheaded/dehydrated prior to event.
#Syncope likely vasovagal (patient was undergoing bowel prep for capsule endoscopy at the time)
Head CT negative
Monitor daily orthostatic vital signs
Patient has not been able to stand for standing blood pressure d/t left lower ext pain as below
#Acute hypoxic respiratory insufficiency
#Left clavicle fracture-sling in place
#Lt 3rd thru 5th rib fractures
#traumatic fractures, likely osteoporosis contributing
Acute hypoxia multifactorial from poor inspiratory effort from rib fractures, chronic right pleural effusion, and abdominal distention from constipation
Thoracic Lumbar XR appreciated multilevel discogenic degenerative disease, small to mod b/l pleural effusions, acute interstitial/alveolar cardiogenic edema, large dense b/l lower lobe airspace consolidations most likely d/t atelectasis
Appreciate orthopedic surgery input, recommend conservative management with left arm sling for left clavicle fracture
Oxygen dependent nasal cannula throughout most of hospitalization, weaned off to room air 08.26.24
Continue pain control, incentive spirometry
Pain regimen tapered down to oxycodone 5 mg Q6HPRN mod/severe pain and Dilaudid IV 0.25 mg Q4HPRN severe breakthrough pain, regimen reduced d/t concern oversedation and side effects nausea and loss of appetite
Continued scheduled Tylenol, Bengay-like cream, Gabapentin 100 mg TID added for possible neuropathic pain ('pins and needle' sensation Lower ext's)
# Chronic pleural effusions suspected multifactorial from partial hypoalbuminemia, deconditioning, possible malnutrition unclear severity
# Right pleural effusion status post thoracentesis on 05/23/2024 with symptomatic improvement in 1350 cc of fluid removed
# History of recurrent left-sided pleural effusion status post admission to [place] with VATS and pulmonary decortication 01/2024.
# Ascites
Status post right thoracentesis on 08/17, draining 1.5 L, cultures negative for growth, path negative for malignancy, shows inflammation
Status post right thoracentesis 08/19, draining 1.35 L
Cardiology and pulmonology following, changed from IV Lasix to Bumex 1 mg IV twice daily, since placed on hold w worsening kidney function 08/27
repeat chest x-ray on Sunday 08/27 appreciated no significant re-accumulation pleural effusion
Not enough fluid in the abdomen for paracentesis
# Acute on chronic heart failure with preserved ejection fraction
Cardiology eval appreciated, changed from IV Lasix to Bumex 1 mg IV twice daily, later increased to 2 mg IV BID as below
Diuresis since placed on hold d/t worsening kidney function 08/27
#ANNA
#Metabolic Acidosis
Possibly cardiorenal syndrome
Cardio and Nephro eval appreciated
diuresis placed on hold w/ worsening kidney function 08/27 started on bicarb gtt as per Nephro, however no improvement noted, switched back to aggressive diuresis Bumex increased to 2 mg IV BID, cont as per nephro
#Severe constipation
#Ingested Capsule endoscopy
Status post enema 08/21
Continue aggressive bowel regimen
passed capsule endoscopy 08/26
#Peripheral artery disease
#Cyanotic left foot
#Acute on Chronic left foot ischemia heel wound
Appreciate vascular surgery input, patient has chronic SFA stenosis
Vascular surgery eval appreciated eventual angiography with attempted left SFA angioplasty/stenting planned
Nephro recommends holding angiography at this time d/t ANNA as above
wound care consult appreciated
#Left cephalic vein superficial thrombus
Supportive care
# Anemia of chronic disease
Ingested capsule endoscopy prior to coming to hospital, has kit for retrieval when passes. Capsule passed 08/26 as above
Hemoglobin dipped to 7.8
Status post 1 unit packed red blood cells with appropriate response, Hgb has remained stable since
Continue to monitor, transfuse as needed
#Hyponatremia
Fluid restrict, trend sodium
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
#History of Takotsubo CM w/recovered EF (2005)
# Paroxysmal atrial fibrillation
# Prior PVI (2016)
# s/p PFA 08/24/23
-continue WAISTLINE JOINER LOCKSTITCH eliquis 2.5 bid
-continue WAISTLINE JOINER LOCKSTITCH metoprolol
-cardiology increased amiodarone to 200 mg twice a day, cont
# Hypothyroidism
-Synthroid continued
-TFT appears to suggest Hypothyroidism uncontrolled, TSH elevated
-pt endorses compliance with synthroid and no recent changes in dose
-repeated TFT shows TSH significantly improved trending down
-cont current synthroid for now, outpt follow up with Endocrinology recommended
#Severe Vit D deficiency
Home Vit D supplementation increased to High Dose weekly supplement
#Elevated troponin from nonischemic myocardial injury
#Lung Nodule
# Celiac disease
gluten free diet
#Moderate portal hypertensive gastropathy
PT/OT appreciated SNF rehab
DVT PPX on Eliquis
Code status - full code
Patient with multiple comorbidities� inpt palliative eval appreciated
Disposition�short-term rehab at [facility] when stable
I spent a total of 45 minutes with the patient or on the floor. More than 50% of this time involved counseling and coordination of care.
Anticipated Discharge: > 48 hours
Subjective/Interval History
-
Date of Service: August 29, 2024
no acute distress sitting up comfortably in chair. Pain persists especially left lower ext. Reports improvement in appetite and having regular bowel movements.
Objective Data
-
Labs:
Laboratory Results
08/29/24 08/29/24
06:00 07:48
WBC Pending
Hgb Pending
Hct Pending
Plt Count Pending
PT Pending
INR Pending
Sodium Pending
Potassium Pending
Chloride Pending
Carbon Dioxide Pending
BUN Pending
Creatinine Pending
Glucose Pending
Calcium Pending
Vital Signs:
Vital Signs
Temp Pulse Resp BP Pulse Ox
97.2 F 62 16 110/53 93
08/29/24 03:47 08/29/24 03:47 08/29/24 03:47 08/29/24 03:47 08/29/24 03:47
I&O
08/28/24 08/29/24 08/30/24
06:59 06:59 06:59
Intake Total 980 / 980 770 / 770
Balance 980 / 980 770 / 770
[2024-08-29 08:24] LABS: Blood Urea Nitrogen 76 mg/dl (7-17); Calcium 7.1 mg/dl (8.4-10.2); Carbon Dioxide 20 mmol/L (22-30); Chloride 102 mmol/L (98-107); Estimated Creatinine Clearance 19 ml/min; Glucose 76 mg/dl (70-99); Magnesium 1.8 mg/dl (1.6-2.3); Potassium 4.4 mmol/L (3.5-5.1); Sodium 126 mmol/L (135-145); eGFR 21.97
[2024-08-29] MEDS: HYDROPHOR 1 APPLIC TOPICAL (08:38)
[2024-08-29] MEDS: AYR SALINE NASAL GEL 1 APPLIC NASAL (08:39)
[2024-08-29] MEDS: BUMEX 2 MG IV (08:39)
[2024-08-29] MEDS: BenGay-Like 1 APPLIC TOPICAL ×3 (08:39→21:03)
[2024-08-29] MEDS: FLUSH (NSS) 1 FLUSH IV (08:40)
[2024-08-29] MEDS: KCL 20 MEQ PO (08:41)
[2024-08-29] MEDS: VITAMIN C 1000 MG PO (08:41)
[2024-08-29] MEDS: OSCAL CAL 500 500 MG PO (08:41)
[2024-08-29] MEDS: ELIQUIS 2.5 MG PO ×2 (08:41→21:00)
[2024-08-29] MEDS: ZETIA 10 MG PO (08:41)
[2024-08-29] MEDS: SANTYL OINTMENT 1 APPLIC TOPICAL (08:41)
[2024-08-29] MEDS: NEURONTIN 100 MG PO ×3 (08:41→21:02)
[2024-08-29] MEDS: TOPROL XL 25 MG PO (08:42)
[2024-08-29] MEDS: PACERONE 200 MG PO ×2 (08:42→21:02)
[2024-08-29] MEDS: VITAMIN B-12 1000 MCG PO (08:42)
[2024-08-29] MEDS: MIRALAX PO (08:42)
[2024-08-29] MEDS: LIDOCAINE 4% PATCH 2 PATCH TOPICAL (08:43)
[2024-08-29 08:45] LABS: Hematocrit 30.1 % (37.0-47.0); Hemoglobin 10.2 g/dL (12.0-16.0); Mean Corp Hgb Conc. 33.9 g/dL (33.0-37.0); Mean Corpuscular Volume 97.4 fL (81.0-99.0); Platelet Count 366 10^3/uL (130-400); Red Cell Dist. Width 19.7 % (11.5-14.5)
[2024-08-29] MEDS: LIPITOR 10 MG PO (08:45)
[2024-08-29 08:52] LABS: INR 2.76; PT 29.5 Sec (11.4-14.6)
[2024-08-29] MEDS: DRISDOL (VITAMIN D2) 50000 UNITS PO (08:54)
[2024-08-29] MEDS: SENOKOT-S PO (09:06)
--- NOTE | 2024-08-29 12:29 | W.PN.NEPH.PH ---
Addendum entered and electronically signed by Zeina Howe MD 08/29/24 15:16:
heck U osmo, if high may try samsca
Original Note:
Today's Communication / Plan
-
cont bumexa nd follow labs
Assessment/Plan
-
IMP:
Syncope likely vasovagal (patient was undergoing bowel prep for capsule endoscopy at the time)
Acute hypoxic respiratory insufficiency
Acute on chronic heart failure with preserved ejection fraction
Anna-baseline cr 1.1
Left clavicle fracture-sling in place
Lt 3rd thru 5th rib fractures
traumatic fractures, likely osteoporosis contributing
Chronic pleural effusions multiple thoracentesis this admit right 08/17 and 08/19
History of recurrent left-sided pleural effusion status post admission to [place] with VATS and pulmonary decortication 01/2024.
Ascites
Severe constipation
Ingested Capsule endoscopy [employer]PUT[employer] has yet to pass
Peripheral artery disease
Chronic left foot ischemia
Left cephalic vein superficial thrombus
Anemia of chronic disease
chronic Hyponatremia
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
History of Takotsubo CM w/recovered EF (2005)
Paroxysmall atrial fibrillation
Prior PVI (2016)
s/p PFA 08/24/23
Hypothyroidism
Elevated troponin from nonischemic myocardial injury
Lung Nodule
Celiac disease
Moderate portal hypertensive gastropathy
PLan;
A/w syncope, noted acute CHF and left calvicular, rib fxs
ANNA- UA with microhematuria, 2+alb on admit, prior UA was bland
no hydro on US 08/22, but limited study
repeat study 08/28 still limited , atrophic right kidney, left not seen well
h/o left nephrosis per pt as child (old US shows small left kidney 05/2024)
cr no change at 2.2 but need diuresis seem mild hypervolemic
given ANNA would want to hold any angiogram till cr stabilizes further
Dipak score NOEL risk is 57%, HD risk 12%
acute on chronic hyponatremia from hypervolemia, maintain FR , diuresis, prn samsca
severe hypoalbuminemia -U PCR -0.5, old UPEP neg, SPEP faint band but polyclonal, pending FLC
recurrent pleural effusion -thoracentesis x2 this admit
on 08/28 Dr Coelho discussed dialysis with her though she would be high risk with high mortality rate at 6 months.
reviewed this again in detail with pt, highly recommend palliative care, not an ideal candidate for HD with frail status and further potential decrease in QOL if choses HD
she should speak to her family and make penitentiary decision
-
-
Date of Service: August 29, 2024
CC / HPI / ROS
-
Chief Complaint:
ANNA with CKD
History of Present Illness:
cr no change at 2.2
bp soft, wt no change
sodium at 126
bicarb better at 20
Review of Systems: Mild shortness of breath with lower extremity leg pain.
Labs
-
Labs:
WBC 7.4 10^3/uL (4.8-10.8) 08/29/24 08:28
RBC 3.09 10^6/uL (4.20-5.40) L 08/29/24 08:28
Hgb 10.2 g/dL (12.0-16.0) L 08/29/24 08:28
Hct 30.1 % (37.0-47.0) L 08/29/24 08:28
Plt Count 366 10^3/uL (130-400) 08/29/24 08:28
Sodium 126 mmol/L (135-145) L 08/29/24 07:48
Potassium 4.4 mmol/L (3.5-5.1) 08/29/24 07:48
Chloride 102 mmol/L (98-107) 08/29/24 07:48
Carbon Dioxide 20 mmol/L (22-30) L 08/29/24 07:48
BUN 76 mg/dl (7-17) H 08/29/24 07:48
Creatinine 2.2 mg/dL (0.6-1.0) H 08/29/24 07:48
eGFR 21.97 08/29/24 07:48
Glucose 76 mg/dl (70-99) 08/29/24 07:48
Calcium 7.1 mg/dl (8.4-10.2) L 08/29/24 07:48
Phosphorus 4.6 mg/dl (2.5-4.5) H 08/29/24 07:48
Bpw-S-Rwwpyheiqhm Pept 8420 pg/ml 08/22/24 07:43
Albumin 1.9 g/dl (3.5-5.0) L 08/24/24 08:48
Physical Exam
-
Vital Signs:
Vital Signs
Temp Pulse Resp BP Pulse Ox
98.1 F 77 18 99/54 95
08/29/24 11:51 08/29/24 11:51 08/29/24 11:51 08/29/24 11:51 08/29/24 11:51
Cardiovascular:: Regular rate and rhythm
Lung Excursion:: Normal (decreased BS)
Abdomen:: Nontender and Soft
Bowel Sounds:: Normal
Extremity Edema:: +1: Bilateral:
Lee Catheter: No
[2024-08-29] MEDS: DUPHALAC/CHRONULAC 20 GRAMS PO (12:32)
[2024-08-29] MEDS: ROXICODONE 5 MG PO ×2 (12:36→18:35)
--- NOTE | 2024-08-29 16:23 | PTCARENOTE ---
Pt AAO x3; forgetful; sl anxious at times. LAST; has decreased ROM LUE; limits movement of LLE d/t discomfort. Pt OOB to chair/BSC with assist x1/dariusz-walker; pt needs much encouragement to participate in OOB activity. VSS. Telemetry: currently
NSR; occ V-paced beats. On room air- pulse ox96%; pt denies SOB; has slight GILLIAM. Abd soft, rounded, arlen PO. Voids on BSC. Lt heel dsg D/I. Resting in bed at present. Will continue to monitor.
--- NOTE | 2024-08-29 17:00 | CM ---
Remains off oxygen Pox 96%.
Pain meds as needed.
PT recommends SNF
Family and pt indicate wanting [facility] at [facility].
Please check with [facility] dc for a bed availability.
Nephrology involved .Pt may need HD.
Palliative care evaluated patient. She is not interested in Hospice.
[facility]
report [phone]
fax [phone]
PLAN To [facility] at dc check for bed availability .
--- NOTE | 2024-08-29 17:21 | W.PN.CARDCBS ---
Today's Communication / Plan
-
remains chronically ill. Creat at 2.2. Na still 126.
LE angiogram still delayed.
Cont Bumex, would consider Samsca
Cont Toprol, Amiodarone, Eliquis. Remains AV paced
Palliative care eval appreciated. She does not desire palliative care.
Impression / Plan
-
PCP: Stella Sutherland PA-C
Core Machine Operator: Dr. Kiera Diaz
Impression:
Admitted with fall, clavicle fracture and possible acute HF 08/15/24
Syncope
Fall and left clavicle fracture
Acute on chronic HFpEF
Recurrent pleural effusion
s/p Left Asept pleural catheter placement 11/29/23, removed after admission to [facility] with VATS and pulmonary decortication 01/2024
Small to moderate B/L pleural effusions by CXR 08/15/2024
R thoracentesis 08/17/2024 for 1500 cc-no growth on culture, fluid studies suggestive of transudate
R thoracentesis 08/21/2024 1350cc clear yellow
ANNA
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
Hyponatremia
Paroxysmal atrial fibrillation
Prior PVI (2016)
s/p PFA 08/24/23
Tikosyn stopped during [facility] rehab stay 02/2024 and now on chronic amiodarone
recurrent afib 08/22/2024 and Amio increased to 200 mg bid
Chronic anticoagulation on Eliquis
Takotsubo CM w/recovered EF (2005)
Negative workup for cardiac amyloid
HLD
HTN
MR
Renal nephrosis
Lung Nodule (2021, stable)
Anemia
celiac dz
Echo 05/18/2023: EF 69%, stage II diastolic dysfunction. Moderately dilated right atrium. Mild to moderate MR. Mild TR. PAP 36 mmHg. Small pericardial effusion
Echo 11/25/2023: EF 55-60%, global longitudinal strain is -14.2, stage III diastolic dysfunction, mild MR, dilated left atrium, aortic sclerosis, normal RV, pulmonary artery systolic pressure 45-50 mmHg
Echo 08/16/2024: EF 60-65%, mild cLVH, stage II diastolic dysfunction, mild MR, severe TR, estimated PAP 70 mmHg, small to moderate pericardial effusion w/o evidence of hemodynamic compromise
Plan:
-She remains chronically ill. She appears to be volume overloaded and creatinine overall stable at 2.2. Sodium remains hyponatremic at 126. Would agree with dose of Samsca. Continue IV Bumex
- Also with recurrent pleural effusions. Status post right thoracentesis 08/17 and 08/21
- Previous dry weight was 131 pounds on 05/26/2024
- Outpatient dose of spironolactone 12.5 mg MWF on hold due to ANNA
- Outpatient dose of Toprol XL 25 mg daily has been continued
- Patient is not chronically on NILAY/ARB/ARNI due to hypotension/now with CKD
- Patient is not chronically on an SGLT2 inhibitor due to history of UTI
- EF stable by echo this admission
- prior cardiac amyloid work up negative
- There is also concern for ischemia of left foot and is being considered for angiogram, however will attempt to stabilize renal function and volume status prior to completing. Not felt to be a good candidate for revascularization. vascular
following
- She continues with A-fib/a flutter on review of telemetry. Heart rates are controlled. Continue amiodarone. Could consider for eventual AVJ as patient has pacemaker in place
- Continue Eliquis 2.5 mg twice daily
- Syncope on admission felt to be secondary to acute on chronic anemia, frequent defecation, and orthostasis
- replete Vitamin D per primary service
- Patient was seen by palliative care. She does not desire DNR at this time. She wants to continue with her current care.
HPI: Patient came to [facility] ER yesterday after fall and is now being mated with syncope, clavicle fracture and possible HFpEF with consultation to cardiology. Patient was seen in the office on 07/17/2024 and her proBNP was felt to be acceptable
although her weight was up to 136 lbs with her previous weight being 133 lbs, there were also moderate bilateral pleural effusions. Usual dose of torsemide 20 mg daily was continued and the patient was agreeable to referral for palliative care
assessment. eCW tasks was reviewed by me and patient was given 1 unit PRBCs on 08/02/2024 for Hgb of 7.7 and the Hgb only improved up to 8.2 so a second unit was given on 08/06/24. Remote device check 08/08/2024 had a 7-hour long atrial flutter episode
and patient was already on Eliquis, no other changes, but later that day patient called with weight gain and was told to take additional torsemide 20 mg for a total of 40 mg daily on 08/08/2024 and 08/09/2024 and although she lost 4 lbs she had ongoing
GILLIAM and fatigue. Then patient was preparing for a scheduled capsule endoscopy for her celiac disease by taking Miralax and after swallowing the capsule she felt disoriented, lost her sense of balance and had a fall. Patient was brought to [facility] ER
and admitted for syncope, clavicle fracture and possible acute on chronic HFpEF. Patient was given Lasix 40 mg IV x 1 in the ER. Her Cre on arrival was 1.0 and today is up to 1.4.
Progress Note - Core Machine Operator
Subjective
Date of Service: August 29, 2024
Overall remains about the same. Still appears to be volume overloaded with shortness of breath.
Objective
Labs:
08/29/24 08:28
08/29/24 07:48
Labs
Hgb 10.2 g/dL (12.0-16.0) L 08/29/24 08:28
Hct 30.1 % (37.0-47.0) L 08/29/24 08:28
Plt Count 366 10^3/uL (130-400) 08/29/24 08:28
PT 29.5 Sec (11.4-14.6) H 08/29/24 08:28
INR 2.76 08/29/24 08:28
Sodium 126 mmol/L (135-145) L 08/29/24 07:48
Potassium 4.4 mmol/L (3.5-5.1) 08/29/24 07:48
BUN 76 mg/dl (7-17) H 08/29/24 07:48
Creatinine 2.2 mg/dL (0.6-1.0) H 08/29/24 07:48
Glucose 76 mg/dl (70-99) 08/29/24 07:48
Vital Signs and I&O:
Vital Signs
Temp Pulse Resp BP Pulse Ox
97.4 F 76 18 130/71 96
08/29/24 15:00 08/29/24 15:00 08/29/24 15:00 08/29/24 15:00 08/29/24 16:18
Vital Signs
Temp Pulse Resp BP Pulse Ox
97.4 F 76 18 130/71 96
08/29/24 15:00 08/29/24 15:00 08/29/24 15:00 08/29/24 15:00 08/29/24 16:18
Intake & Output
08/27/24 08/28/24 08/29/24 08/30/24
06:59 06:59 06:59 06:59
Intake Total 660 / 660 980 / 980 770 / 770
Output Total 100 / 100
Balance 560 / 560 980 / 980 770 / 770
Physical Exam
Physical Exam
GEN: No distress, awake, Ox3
HEENT: supple, anicteric, mmm
LUNGS: CTA, no wheezes/rales
CV: Reg, S1/S2, 1/6 syst LSB, no gallop
ABD: soft, BS+, NT/ND
EXT: No edema
NEURO: Gross non-focal
SKIN: No rash
[2024-08-29] MEDS: BenGay-Like TOPICAL (18:11)
[2024-08-29] MEDS: ASPIR LOW (ENTERIC COATED) 81 MG PO (21:02)
[2024-08-29] MEDS: SENOKOT-S 2 TABLET PO (21:02)
[2024-08-29] MEDS: MIRALAX 17 GRAMS PO (21:02)
[2024-08-29] MEDS: HYDROPHOR TOPICAL (21:04)
[2024-08-29] MEDS: REMOVE LIDOCAINE PATCH 2 PATCH REMOVE (22:42)
[2024-08-30] VITALS (9 sets, daily range): BP systolic 88–127; BP diastolic 48–94; PULSE 87; BMI 22.2
[2024-08-30] MEDS: TYLENOL 650 MG PO ×6 (00:09→20:08)
[2024-08-30] MEDS: ROXICODONE 5 MG PO ×2 (00:09→05:49)
[2024-08-30] MEDS: DILAUDID 0.25 MG IV (01:06)
[2024-08-30 03:22] LABS: Free Kappa Light Chains,Quant 169.19 mg/L (3.30-19.40); Free Lambda Light Chains,Quant 164.24 mg/L (5.71-26.30); Kappa/Lambda Fr Light Ratio 1.03 (0.26-1.65)
[2024-08-30] MEDS: SYNTHROID 150 MCG PO (05:49)
[2024-08-30 07:15] LABS: Hematocrit 33.4 % (37.0-47.0); Hemoglobin 11.9 g/dL (12.0-16.0); Mean Corp Hgb Conc. 35.6 g/dL (33.0-37.0); Mean Corpuscular Volume 94.6 fL (81.0-99.0); Platelet Count 357 10^3/uL (130-400); Red Cell Dist. Width 19.4 % (11.5-14.5)
[2024-08-30 07:37] LABS: INR 2.20; PT 24.9 Sec (11.4-14.6)
[2024-08-30 08:23] LABS: Blood Urea Nitrogen 71 mg/dl (7-17); Calcium 6.7 mg/dl (8.4-10.2); Carbon Dioxide 15 mmol/L (22-30); Chloride 105 mmol/L (98-107); Estimated Creatinine Clearance 20 ml/min; Glucose 79 mg/dl (70-99); Magnesium 1.9 mg/dl (1.6-2.3); Potassium 4.4 mmol/L (3.5-5.1); Sodium 124 mmol/L (135-145); eGFR 23.23
[2024-08-30] MEDS: MIRALAX 17 GRAMS PO (09:08)
[2024-08-30] MEDS: ZETIA 10 MG PO (09:09)
[2024-08-30] MEDS: OSCAL CAL 500 500 MG PO ×2 (09:09→20:08)
[2024-08-30] MEDS: KCL 20 MEQ PO (09:09)
[2024-08-30] MEDS: SENOKOT-S 2 TABLET PO ×2 (09:09→20:09)
[2024-08-30] MEDS: VITAMIN B-12 1000 MCG PO (09:09)
[2024-08-30] MEDS: VITAMIN C 1000 MG PO (09:09)
[2024-08-30] MEDS: NEURONTIN 100 MG PO ×2 (09:11→15:33)
[2024-08-30] MEDS: SANTYL OINTMENT 1 APPLIC TOPICAL (09:11)
[2024-08-30] MEDS: ELIQUIS 2.5 MG PO ×2 (09:12→20:09)
[2024-08-30] MEDS: LIDOCAINE 4% PATCH 2 PATCH TOPICAL (09:13)
--- NOTE | 2024-08-30 09:17 | W.PN.HOSP.TC ---
Today's Communication/Plan
-
albumin boluses
diuresis as bp can tolerate
samsca bicarb as per Nephro
PT/OT
ongoing goals of care discussions
Assessment / Plan
Assessment / Plan
Physical Exam
General: no acute distress appears comfortable
HEENT: NormoCephalic, Moist mucous membranes and Atraumatic
Respiratory: Bibasilar crackles
Cardiac: S1/S2 and Regular Rhythm; No Murmur or Rub
GI: Soft, Non Tender, abd distended and Normal Bowel Sounds
Musculoskeletal: No Clubbing, No Cyanosis, Left arm with edema, Left arm in sling, +2 pitting edema LUE,Bilateral lower extremities edema +1, left toes cyanotic appearance
Neuro: AO x3 conversant coherent
Psych: Calm
HPI: 79F hx pleural effusion HFpEF HTN afib ppm Celiac dz HLD pulm htn here for evaluation syncope with associate clavicle and rib fractures likely d/t fall. Syncope had occurred while taking bowel prep for capsule endoscopy. Patient endorsed
feeling lightheaded/dehydrated prior to event.
#Syncope likely vasovagal (patient was undergoing bowel prep for capsule endoscopy at the time)
Head CT negative
Monitor daily orthostatic vital signs
Patient has not been able to stand for standing blood pressure d/t left lower ext pain as below
#Acute hypoxic respiratory insufficiency
#Left clavicle fracture-sling in place
#Lt 3rd thru 5th rib fractures
#traumatic fractures, likely osteoporosis contributing
Acute hypoxia multifactorial from poor inspiratory effort from rib fractures, chronic right pleural effusion, and abdominal distention from constipation
Thoracic Lumbar XR appreciated multilevel discogenic degenerative disease, small to mod b/l pleural effusions, acute interstitial/alveolar cardiogenic edema, large dense b/l lower lobe airspace consolidations most likely d/t atelectasis
Appreciate orthopedic surgery input, recommend conservative management with left arm sling for left clavicle fracture
Oxygen dependent nasal cannula throughout most of hospitalization, weaned off to room air 06.22.25
Continue pain control, incentive spirometry
Pain regimen tapered down to oxycodone 5 mg Q6HPRN mod/severe pain and Dilaudid IV 0.25 mg Q4HPRN severe breakthrough pain, regimen reduced d/t concern oversedation and side effects nausea and loss of appetite
Continued scheduled Tylenol, Bengay-like cream, Gabapentin 100 mg TID added for possible neuropathic pain ('pins and needle' sensation Lower ext's)
# Chronic pleural effusions suspected multifactorial from partial hypoalbuminemia, deconditioning, possible malnutrition unclear severity
# Right pleural effusion status post thoracentesis on 05/23/2024 with symptomatic improvement in 1350 cc of fluid removed
# History of recurrent left-sided pleural effusion status post admission to [place] with VATS and pulmonary decortication 01/2024.
# Ascites
Status post right thoracentesis on 08/17, draining 1.5 L, cultures negative for growth, path negative for malignancy, shows inflammation
Status post right thoracentesis 08/19, draining 1.35 L
Cardiology and pulmonology following, changed from IV Lasix to Bumex 1 mg IV twice daily, since placed on hold w worsening kidney function 08/27
repeat chest x-ray on Sunday 08/27 appreciated no significant re-accumulation pleural effusion
Not enough fluid in the abdomen for paracentesis
albumin boluses intermittently given when pressures run low systolic 90s
# Acute on chronic heart failure with preserved ejection fraction
Cardiology eval appreciated, changed from IV Lasix to Bumex 1 mg IV twice daily, later increased to 2 mg IV BID as below
Diuresis since placed on hold d/t worsening kidney function 08/27
#ANNA
#Metabolic Acidosis
Possibly cardiorenal syndrome
Cardio and Nephro eval appreciated
diuresis placed on hold w/ worsening kidney function 08/27 started on bicarb gtt as per Nephro, however no improvement noted, switched back to aggressive diuresis Bumex increased to 2 mg IV BID, cont as per nephro
#Severe constipation
#Ingested Capsule endoscopy
Status post enema 08/21
Continue aggressive bowel regimen
passed capsule endoscopy 08/26
#Peripheral artery disease
#Cyanotic left foot
#Acute on Chronic left foot ischemia heel wound
Appreciate vascular surgery input, patient has chronic SFA stenosis
Vascular surgery eval appreciated eventual angiography with attempted left SFA angioplasty/stenting planned
Nephro recommends holding angiography at this time d/t ANNA as above
wound care consult appreciated
#Left cephalic vein superficial thrombus
Supportive care
# Anemia of chronic disease
Ingested capsule endoscopy prior to coming to hospital, has kit for retrieval when passes. Capsule passed 08/26 as above
Hemoglobin dipped to 7.8
Status post 1 unit packed red blood cells with appropriate response, Hgb has remained stable since
Continue to monitor, transfuse as needed
#Hyponatremia
#Metabolic Acidosis
Fluid restrict, trend sodium
samsca bicarb as per Nephro
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
#History of Takotsubo CM w/recovered EF (2005)
# Paroxysmal atrial fibrillation
# Prior PVI (2016)
# s/p PFA 08/24/23
-continue SAFETY AND SECURITY OFFICER eliquis 2.5 bid
-continue SAFETY AND SECURITY OFFICER metoprolol
-cardiology increased amiodarone to 200 mg twice a day, cont
# Hypothyroidism
-Synthroid continued
-TFT appears to suggest Hypothyroidism uncontrolled, TSH elevated
-pt endorses compliance with synthroid and no recent changes in dose
-repeated TFT shows TSH significantly improved trending down
-cont current synthroid for now, outpt follow up with Endocrinology recommended
#Severe Vit D deficiency
Home Vit D supplementation increased to High Dose weekly supplement
#Elevated troponin from nonischemic myocardial injury
#Lung Nodule
# Celiac disease
gluten free diet
#Moderate portal hypertensive gastropathy
PT/OT appreciated SNF rehab
DVT PPX on Eliquis
Code status - full code
Patient with multiple comorbidities� inpt palliative eval appreciated
Ongoing goals of care discussion
Disposition�short-term rehab at [facility] when stable
Discussed with patient and patient's son All
I spent a total of 45 minutes with the patient or on the floor. More than 50% of this time involved counseling and coordination of care.
Anticipated Discharge: > 48 hours
Subjective/Interval History
-
Date of Service: August 30, 2024
no acute distress appears comfortable at rest. pain persist.
Objective Data
-
Labs:
Laboratory Results
08/30/24
07:07
WBC 6.8
Hgb 11.9 L
Hct 33.4 L
Plt Count 357
PT 24.9 H
INR 2.20
Sodium 124 L
Potassium 4.4
Chloride 105
Carbon Dioxide 15 L
BUN 71 H
Creatinine 2.1 H
Glucose 79
Calcium 6.7 L*
Total Bilirubin Pending
AST Pending
ALT Pending
Alkaline Phosphatase Pending
Vital Signs:
Vital Signs
Temp Pulse Resp BP Pulse Ox
97.8 F 89 18 88/48 97
08/30/24 07:00 08/30/24 07:00 08/30/24 07:00 08/30/24 07:00 08/30/24 07:00
I&O
08/29/24 08/30/24 08/31/24
06:59 06:59 06:59
Intake Total 770 / 770 800 / 800
Balance 770 / 770 800 / 800
[2024-08-30] MEDS: TOPROL XL PO (09:26)
[2024-08-30] MEDS: CALCIUM GLUCONATE 100 IV (09:31)
--- NOTE | 2024-08-30 09:39 | CM ---
Remains off oxygen Pox 97%.
Pt requiring pain med prn.
PT recommends SNF
Please check with [facility] dc for a bed availability.
Nephrology involved .Pt may need HD.
Pt is not interested in Hospice nor Palliative care.
[facility]
report [phone]
fax [phone]
PLAN To [facility] at dc -check for bed availability .
[2024-08-30] MEDS: HYDROPHOR 1 APPLIC TOPICAL (09:41)
[2024-08-30] MEDS: BenGay-Like 1 APPLIC TOPICAL ×2 (09:42→13:29)
[2024-08-30] MEDS: BUMEX IV ×2 (09:44→20:19)
[2024-08-30] MEDS: PACERONE 200 MG PO ×2 (09:44→20:09)
[2024-08-30 10:44] LABS: ALT (SGPT) 10 U/L (0-35); AST (SGOT) 29 U/L (14-36); Albumin 1.7 g/dl (3.5-5.0); Alkaline Phosphatase 203 U/L (38-126); Total Protein 4.8 g/dl (6.3-8.2)
[2024-08-30] MEDS: FLEXBUMIN 100 IV ×2 (10:44→17:16)
--- NOTE | 2024-08-30 13:00 | W.PN.NEPH.PH ---
Today's Communication / Plan
-
cotn bumex
add po bicarb
samsca
GOC discussion with family
Assessment/Plan
-
IMP:
Syncope likely vasovagal (patient was undergoing bowel prep for capsule endoscopy at the time)
Acute hypoxic respiratory insufficiency
Acute on chronic heart failure with preserved ejection fraction
Brigitte-baseline cr 1.1
Left clavicle fracture-sling in place
Lt 3rd thru 5th rib fractures
traumatic fractures, likely osteoporosis contributing
Chronic pleural effusions multiple thoracentesis this admit right 08/17 and 08/19
History of recurrent left-sided pleural effusion status post admission to [place] with VATS and pulmonary decortication 01/2024.
Ascites
Severe constipation
Ingested Capsule endoscopy [employer] has yet to pass
Peripheral artery disease
Chronic left foot ischemia
Left cephalic vein superficial thrombus
Anemia of chronic disease
chronic Hyponatremia
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
History of Takotsubo CM w/recovered EF (2005)
Paroxysmall atrial fibrillation
Prior PVI (2016)
s/p PFA 08/24/23
Hypothyroidism
Elevated troponin from nonischemic myocardial injury
Lung Nodule
Celiac disease
Moderate portal hypertensive gastropathy
PLan;
A/w syncope, noted acute CHF and left calvicular, rib fxs
BRIGITTE- UA with microhematuria, 2+alb on admit, prior UA was bland
no hydro on US 08/22, but limited study, bladder scan 160cc
repeat study 08/28 still limited , atrophic right kidney, left not seen well
h/o left nephrosis per pt as child (old US shows small left kidney 05/2024)
cr no sig change at 2.1 ongoing need of diuresis for hypervolemia
worsening non gap met acidosis-add po bicarb
given BRIGITTE would want to hold any angiogram till cr stabilizes further , high risk of NOEL
acute on chronic hyponatremia from hypervolemia, maintain FR , diuresis, will dose samsca
severe hypoalbuminemia -U PCR -0.5, old UPEP neg, SPEP faint band but polyclonal, pending FLC
recurrent pleural effusion -thoracentesis x2 this admit
BPs are soft-on IV alb per primary
calcium low but corrected normal, s/p IV cristina per primary, check vit D and I cristina in am
on 08/28 Dr Coelho discussed dialysis with her though she would be high risk with high mortality rate at 6 months.
reviewed this again in detail with pt on 08/29
today 08/30 spoke with son in person and explained poor renal prognosis that she is not an ideal candidate for HD with frail status and further potential decrease in QOL if choses HD, she will remains at NH for alf.
he understands and will speak to rest of the family and come up with decision
no emergent need of HD currently and hopefully will not need this admit
high risk encounter
-
-
Date of Service: August 30, 2024
CC / HPI / ROS
-
Chief Complaint:
BRIGITTE with CKD
History of Present Illness:
cr no change at 2.1
bp soft, wt no change
sodium down at 124
bicarb worse at 15
Review of Systems: Mild shortness of breath with lower extremity leg pain.
no n/v
family present during visit
Labs
-
Labs:
WBC 6.8 10^3/uL (4.8-10.8) 08/30/24 07:07
RBC 3.53 10^6/uL (4.20-5.40) L 08/30/24 07:07
Hgb 11.9 g/dL (12.0-16.0) L 08/30/24 07:07
Hct 33.4 % (37.0-47.0) L 08/30/24 07:07
Plt Count 357 10^3/uL (130-400) 08/30/24 07:07
Sodium 124 mmol/L (135-145) L 08/30/24 07:07
Potassium 4.4 mmol/L (3.5-5.1) 08/30/24 07:07
Chloride 105 mmol/L (98-107) 08/30/24 07:07
Carbon Dioxide 15 mmol/L (22-30) L 08/30/24 07:07
BUN 71 mg/dl (7-17) H 08/30/24 07:07
Creatinine 2.1 mg/dL (0.6-1.0) H 08/30/24 07:07
eGFR 23.23 08/30/24 07:07
Glucose 79 mg/dl (70-99) 08/30/24 07:07
Calcium 6.7 mg/dl (8.4-10.2) L* 08/30/24 07:07
Phosphorus 4.0 mg/dl (2.5-4.5) 08/30/24 07:07
Ifd-Q-Qhkgugrydiw Pept 8420 pg/ml 08/22/24 07:43
Albumin 1.7 g/dl (3.5-5.0) L 08/30/24 07:07
Physical Exam
-
Vital Signs:
Vital Signs
Temp Pulse Resp BP Pulse Ox
98.1 F 82 18 98/54 94
08/30/24 11:00 08/30/24 11:00 08/30/24 11:00 08/30/24 11:00 08/30/24 11:00
Cardiovascular:: Regular rate and rhythm
Respiratory:: Bilateral: Coarse
Lung Excursion:: Normal (decreased BS)
Abdomen:: Nontender and Soft
Bowel Sounds:: Normal
Extremity Edema:: +1: Bilateral:
Lee Catheter: No
[2024-08-30] MEDS: DUPHALAC/CHRONULAC 20 GRAMS PO (13:28)
[2024-08-30] MEDS: SAMSCA 7.5 MG PO (15:33)
--- NOTE | 2024-08-30 15:37 | W.PN.CARDCBS ---
Today's Communication / Plan
-
Overall remains about the same. Continue IV Bumex and Samsca. Will add on repeat proBNP to try to better assess volume status.
Continues to struggle with hypoalbuminemia and hyponatremia.
Creatinine overall stable at 2.1.
Long-term prognosis remains poor.
Continue to attempt rehab and physical therapy
Impression / Plan
-
PCP: Stella Sutherland PA-C
Spanisher: Dr. Kiera Diaz
Impression:
Admitted with fall, clavicle fracture and possible acute HF 08/15/24
Syncope
Fall and left clavicle fracture
Acute on chronic HFpEF
Recurrent pleural effusion
s/p Left Asept pleural catheter placement 11/29/23, removed after admission to [place] with VATS and pulmonary decortication 01/2024
Small to moderate B/L pleural effusions by CXR 08/15/2024
R thoracentesis 08/17/2024 for 1500 cc-no growth on culture, fluid studies suggestive of transudate
R thoracentesis 08/21/2024 1350cc clear yellow
ANNA
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
Hyponatremia
Paroxysmal atrial fibrillation
Prior PVI (2016)
s/p PFA 08/24/23
Tikosyn stopped during [facility] rehab stay 02/2024 and now on chronic amiodarone
recurrent afib 08/22/2024 and Amio increased to 200 mg bid
Chronic anticoagulation on Eliquis
Takotsubo CM w/recovered EF (2005)
Negative workup for cardiac amyloid
HLD
HTN
MR
Renal nephrosis
Lung Nodule (2021, stable)
Anemia
celiac dz
Echo 05/18/2023: EF 69%, stage II diastolic dysfunction. Moderately dilated right atrium. Mild to moderate MR. Mild TR. PAP 36 mmHg. Small pericardial effusion
Echo 11/25/2023: EF 55-60%, global longitudinal strain is -14.2, stage III diastolic dysfunction, mild MR, dilated left atrium, aortic sclerosis, normal RV, pulmonary artery systolic pressure 45-50 mmHg
Echo 08/16/2024: EF 60-65%, mild cLVH, stage II diastolic dysfunction, mild MR, severe TR, estimated PAP 70 mmHg, small to moderate pericardial effusion w/o evidence of hemodynamic compromise
Plan:
- Weight overall about the same. Creatinine slightly improved and down to 2.1. Remains on IV Bumex. For dose of Samsca today. Will repeat proBNP to try to better assess volume status although she continues to appear volume overloaded. She does
not appear to be a candidate for dialysis in my opinion.
-Continue supportive care and nutrition for hyponatremia and hypoalbuminemia. Albumin down to 1.7.
- Also with recurrent pleural effusions. Status post right thoracentesis 08/17 and 08/21
- Previous dry weight was 131 pounds on 05/26/2024
- Outpatient dose of spironolactone 12.5 mg MWF on hold due to ANNA
- Outpatient dose of Toprol XL 25 mg daily has been continued
- Patient is not chronically on NILAY/ARB/ARNI due to hypotension/now with CKD
- Patient is not chronically on an SGLT2 inhibitor due to history of UTI
- EF stable by echo this admission
- prior cardiac amyloid work up negative
- There is also concern for ischemia of left foot and is being considered for angiogram, however will attempt to stabilize renal function and volume status prior to completing. Not felt to be a good candidate for revascularization. vascular
following
- She continues with A-fib/a flutter on review of telemetry. Heart rates are controlled. Continue amiodarone. Could consider for eventual AVJ as patient has pacemaker in place
- Continue Eliquis 2.5 mg twice daily
- Syncope on admission felt to be secondary to acute on chronic anemia, frequent defecation, and orthostasis
- replete Vitamin D per primary service
- Discussed prognosis at length with the son and family at bedside today. They still desire full care at this time. I again reiterated that I do not think she is a good candidate for dialysis.
- Patient was seen by palliative care. She does not desire DNR at this time. She wants to continue with her current care.
HPI: Patient came to [facility] ER yesterday after fall and is now being mated with syncope, clavicle fracture and possible HFpEF with consultation to cardiology. Patient was seen in the office on 07/17/2024 and her proBNP was felt to be acceptable
although her weight was up to 136 lbs with her previous weight being 133 lbs, there were also moderate bilateral pleural effusions. Usual dose of torsemide 20 mg daily was continued and the patient was agreeable to referral for palliative care
assessment. eCW tasks was reviewed by me and patient was given 1 unit PRBCs on 08/02/2024 for Hgb of 7.7 and the Hgb only improved up to 8.2 so a second unit was given on 08/06/24. Remote device check 08/08/2024 had a 7-hour long atrial flutter episode
and patient was already on Eliquis, no other changes, but later that day patient called with weight gain and was told to take additional torsemide 20 mg for a total of 40 mg daily on 08/08/2024 and 08/09/2024 and although she lost 4 lbs she had ongoing
GILLIAM and fatigue. Then patient was preparing for a scheduled capsule endoscopy for her celiac disease by taking Miralax and after swallowing the capsule she felt disoriented, lost her sense of balance and had a fall. Patient was brought to [facility] ER
and admitted for syncope, clavicle fracture and possible acute on chronic HFpEF. Patient was given Lasix 40 mg IV x 1 in the ER. Her Cre on arrival was 1.0 and today is up to 1.4.
Progress Note - Spanisher
Subjective
Date of Service: August 30, 2024
Overall about the same. Remains weak and frail but breathing is stable. Creatinine down to 2.1.
Objective
Labs:
08/30/24 07:07
08/30/24 07:07
Labs
Hgb 11.9 g/dL (12.0-16.0) L 08/30/24 07:07
Hct 33.4 % (37.0-47.0) L 08/30/24 07:07
Plt Count 357 10^3/uL (130-400) 08/30/24 07:07
PT 24.9 Sec (11.4-14.6) H 08/30/24 07:07
INR 2.20 08/30/24 07:07
Sodium 124 mmol/L (135-145) L 08/30/24 07:07
Potassium 4.4 mmol/L (3.5-5.1) 08/30/24 07:07
BUN 71 mg/dl (7-17) H 08/30/24 07:07
Creatinine 2.1 mg/dL (0.6-1.0) H 08/30/24 07:07
Glucose 79 mg/dl (70-99) 08/30/24 07:07
Vital Signs and I&O:
Vital Signs
Temp Pulse Resp BP Pulse Ox
98.1 F 82 18 92/52 92
08/30/24 15:28 08/30/24 15:28 08/30/24 15:28 08/30/24 15:28 08/30/24 15:28
Vital Signs
Temp Pulse Resp BP Pulse Ox
98.1 F 82 18 92/52 92
08/30/24 15:28 08/30/24 15:28 08/30/24 15:28 08/30/24 15:28 08/30/24 15:28
Intake & Output
08/28/24 08/29/24 08/30/24 08/31/24
06:59 06:59 06:59 06:59
Intake Total 980 / 980 770 / 770 800 / 800 420 / 420
Balance 980 / 980 770 / 770 800 / 800 420 / 420
Physical Exam
Physical Exam
GEN: No distress, awake, Ox3
HEENT: supple, anicteric, mmm
LUNGS: scatt rhonchi
CV: Reg, S1/S2, 1/6 syst LSB, S3+
ABD: soft, BS+, NT/ND
EXT: +1 edema
NEURO: Gross non-focal
SKIN: No rash
[2024-08-30] MEDS: BenGay-Like TOPICAL ×2 (17:03→21:22)
[2024-08-30] MEDS: SODIUM BICARBONATE 1300 MG PO (20:08)
[2024-08-30] MEDS: ASPIR LOW (ENTERIC COATED) 81 MG PO (20:09)
[2024-08-30] MEDS: MIRALAX PO (20:11)
[2024-08-30] MEDS: HYDROPHOR TOPICAL (20:17)
[2024-08-30] MEDS: REMOVE LIDOCAINE PATCH 2 PATCH REMOVE (21:22)
[2024-08-30] MEDS: NEURONTIN PO (21:23)
[2024-08-31] VITALS (9 sets, daily range): BP systolic 92–142; BP diastolic 46–70; BMI 22.6
[2024-08-31] MEDS: TYLENOL PO ×2 (00:25→11:23)
[2024-08-31] MEDS: FLEXBUMIN 100 IV (02:25)
[2024-08-31] MEDS: TYLENOL 650 MG PO ×4 (03:27→20:12)
[2024-08-31] MEDS: SYNTHROID 150 MCG PO (06:04)
--- NOTE | 2024-08-31 06:57 | W.PN.HOSP.TC ---
Today's Communication/Plan
-
wean O2 supplementation as tolerated
pain control PT/OT
cont diuresis (holding parameter lowered, hold if SBP<95)
Samsca as per Nephro
Calcium supplementation
Assessment / Plan
Assessment / Plan
Physical Exam
General: no acute distress appears comfortable
HEENT: NormoCephalic, Moist mucous membranes and Atraumatic
Respiratory: Bibasilar crackles
Cardiac: S1/S2 and Regular Rhythm; No Murmur or Rub
GI: Soft, Non Tender, abd distended and Normal Bowel Sounds
Musculoskeletal: No Clubbing, No Cyanosis, Left arm with edema, Left arm in sling, +2 pitting edema LUE,Bilateral lower extremities edema +1, left toes cyanotic appearance
Neuro: AO x3 conversant coherent
Psych: Calm
HPI: 79F hx pleural effusion HFpEF HTN afib ppm Celiac dz HLD pulm htn here for evaluation syncope with associate clavicle and rib fractures likely d/t fall. Syncope had occurred while taking bowel prep for capsule endoscopy. Patient endorsed
feeling lightheaded/dehydrated prior to event.
#Syncope likely vasovagal (patient was undergoing bowel prep for capsule endoscopy at the time)
Head CT negative
orthostatic vital signs, unable to obtain, Patient has not been able to stand prolonged time for standing blood pressure d/t left lower ext pain as below
#Acute hypoxic respiratory insufficiency
#Left clavicle fracture-sling in place
#Lt 3rd thru 5th rib fractures
#traumatic fractures, likely osteoporosis contributing
Acute hypoxia multifactorial from poor inspiratory effort from rib fractures, chronic right pleural effusion, and abdominal distention from constipation
Thoracic Lumbar XR appreciated multilevel discogenic degenerative disease, small to mod b/l pleural effusions, acute interstitial/alveolar cardiogenic edema, large dense b/l lower lobe airspace consolidations most likely d/t atelectasis
Appreciate orthopedic surgery input, recommend conservative management with left arm sling for left clavicle fracture
Repeat Shoulder X-ray 08/30 appreciated comminuted and displaced fracture distal left clavicle radiographically stable, left rib fractures 3rd 4th and 5th
discussed with Orthopedic on-call regarding clavicle fx X-ray result 08/30 who recommended continuing NWB LUE 4-6 wks from fx, follow up with Orthopedic before advancing activity/weight-bearing status
Intermittently requiring oxygen supplementation throughout hospitalization
Continue pain control, incentive spirometry
Pain regimen tapered down to oxycodone 5 mg Q6HPRN mod/severe pain and Dilaudid IV 0.25 mg Q4HPRN severe breakthrough pain, regimen reduced d/t concern oversedation and side effects nausea and loss of appetite
Continued scheduled Tylenol, Bengay-like cream, Gabapentin 100 mg TID added for possible neuropathic pain ('pins and needle' sensation Lower ext's)
# Chronic pleural effusions suspected multifactorial from partial hypoalbuminemia, deconditioning, possible malnutrition unclear severity
# Right pleural effusion status post thoracentesis on 05/23/2024 with symptomatic improvement in 1350 cc of fluid removed
# History of recurrent left-sided pleural effusion status post admission to [place] with VATS and pulmonary decortication 01/2024.
# Ascites
Status post right thoracentesis on 08/17, draining 1.5 L, cultures negative for growth, path negative for malignancy, shows inflammation
Status post right thoracentesis 08/19, draining 1.35 L
Cardiology and pulmonology following, changed from IV Lasix to Bumex 1 mg IV twice daily, since placed on hold w worsening kidney function 08/27
repeat chest x-ray on Sunday 08/27 appreciated no significant re-accumulation pleural effusion
Not enough fluid in the abdomen for paracentesis
albumin boluses intermittently given when pressures run low systolic 90s
# Acute on chronic heart failure with preserved ejection fraction
Cardiology eval appreciated, changed from IV Lasix to Bumex 1 mg IV twice daily, later increased to 2 mg IV BID as below
#ANNA
#Metabolic Acidosis
Possibly cardiorenal syndrome
Cardio and Nephro eval appreciated
diuresis placed on hold w/ worsening kidney function 08/27 started on bicarb gtt as per Nephro, however no improvement noted, switched back to aggressive diuresis
cont Bumex increased to 2 mg IV BID, cont as per nephro
#Severe constipation
#Ingested Capsule endoscopy
Status post enema 08/21
Continue aggressive bowel regimen
passed capsule endoscopy 08/26
#Peripheral artery disease
#Cyanotic left foot
#Acute on Chronic left foot ischemia heel wound
Appreciate vascular surgery input, patient has chronic SFA stenosis
Vascular surgery eval appreciated eventual angiography with attempted left SFA angioplasty/stenting planned
Nephro recommends holding angiography at this time d/t ANNA as above
wound care consult appreciated
#Left cephalic vein superficial thrombus
Supportive care
# Anemia of chronic disease
Ingested capsule endoscopy prior to coming to hospital, has kit for retrieval when passes. Capsule passed 08/26 as above
Hemoglobin dipped to 7.8
Status post 1 unit packed red blood cells with appropriate response, Hgb has remained stable since
Continue to monitor, transfuse as needed
#Hyponatremia
#Metabolic Acidosis
Fluid restrict, trend sodium
samsca bicarb as per Nephro
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
#History of Takotsubo CM w/recovered EF (2005)
# Paroxysmal atrial fibrillation
# Prior PVI (2016)
# s/p PFA 08/24/23
-continue PUMP AND STILL OPERATOR eliquis 2.5 bid
-continue PUMP AND STILL OPERATOR metoprolol
-cardiology increased amiodarone to 200 mg twice a day, cont
# Hypothyroidism
-Synthroid continued
-TFT appears to suggest Hypothyroidism uncontrolled, TSH elevated
-pt endorses compliance with synthroid and no recent changes in dose
-repeated TFT shows TSH significantly improved trending down
-cont current synthroid for now, outpt follow up with Endocrinology recommended
#Severe Vit D deficiency
Home Vit D supplementation increased to High Dose weekly supplement
#Elevated troponin from nonischemic myocardial injury
#Lung Nodule
# Celiac disease
gluten free diet
#Moderate portal hypertensive gastropathy
PT/OT appreciated SNF rehab
DVT PPX on Eliquis
Code status - full code
Patient with multiple comorbidities� inpt palliative eval appreciated
Ongoing goals of care discussion
Disposition�short-term rehab at [facility] when stable
I spent a total of 45 minutes with the patient or on the floor. More than 50% of this time involved counseling and coordination of care.
Anticipated Discharge: > 48 hours
Subjective/Interval History
-
Date of Service: August 31, 2024
No acute distress, appears relatively comfortable at this time, pain persists. Back on nasal cannula.
Objective Data
-
Labs:
Laboratory Results
08/31/24
06:00
WBC Pending
Hgb Pending
Hct Pending
Plt Count Pending
Sodium Pending
Potassium Pending
Chloride Pending
Carbon Dioxide Pending
BUN Pending
Creatinine Pending
Glucose Pending
Calcium Pending
Vital Signs:
Vital Signs
Temp Pulse Resp BP Pulse Ox
97.2 F 70 20 108/58 98
08/31/24 04:00 08/31/24 04:00 08/31/24 04:00 08/31/24 04:00 08/31/24 04:00
I&O
08/29/24 08/30/24 08/31/24
06:59 06:59 06:59
Intake Total 770 / 770 800 / 800 900 / 900
Balance 770 / 770 800 / 800 900 / 900
[2024-08-31] MEDS: SENOKOT-S 2 TABLET PO ×2 (08:27→20:15)
[2024-08-31] MEDS: ELIQUIS 2.5 MG PO ×2 (08:27→20:13)
[2024-08-31] MEDS: VITAMIN C 1000 MG PO (08:28)
[2024-08-31] MEDS: TOPROL XL 25 MG PO (08:28)
[2024-08-31] MEDS: SODIUM BICARBONATE 1300 MG PO ×2 (08:28→20:13)
[2024-08-31] MEDS: SANTYL OINTMENT 1 APPLIC TOPICAL (08:28)
[2024-08-31] MEDS: KCL 20 MEQ PO (08:29)
[2024-08-31] MEDS: VITAMIN B-12 1000 MCG PO (08:29)
[2024-08-31] MEDS: AYR SALINE NASAL GEL 1 APPLIC NASAL (08:29)
[2024-08-31] MEDS: ZETIA 10 MG PO (08:33)
[2024-08-31] MEDS: NEURONTIN 100 MG PO ×3 (08:33→21:58)
[2024-08-31] MEDS: OSCAL CAL 500 500 MG PO ×2 (08:33→20:13)
[2024-08-31] MEDS: BUMEX 2 MG IV (08:34)
[2024-08-31] MEDS: PACERONE 200 MG PO ×2 (08:34→20:13)
[2024-08-31] MEDS: HYDROPHOR 1 APPLIC TOPICAL ×2 (08:35→21:57)
[2024-08-31] MEDS: BenGay-Like 1 APPLIC TOPICAL ×2 (08:35→22:16)
[2024-08-31] MEDS: MIRALAX 17 GRAMS PO ×2 (08:36→20:12)
[2024-08-31] MEDS: LIDOCAINE 4% PATCH 2 PATCH TOPICAL (08:36)
[2024-08-31] MEDS: LIPITOR 10 MG PO (08:38)
--- NOTE | 2024-08-31 09:48 | W.PN.CARDCBS ---
Addendum entered and electronically signed by Sukhdev Renner MD 08/31/24 15:14:
I saw and examined the patient.
The Fleshing Machine Operator's note was reviewed and I agree with the note.
Comment: Briefly, 79-year-old woman past medical history of heart failure with preserved ejection fraction, hypoalbuminemia, recurrent pleural effusion status post Pleurx and subsequent VATS, persistent atrial fibrillation status post PVI and
permanent pacemaker who presents in acute on chronic heart failure. Likely a component of hypoalbuminemia contributing as well.
Diuretics were held for hypotension. Today she is volume overloaded on exam and requiring supplemental oxygen.
Resume IV diuretics and wean oxygen as able
Suspect we will need to tolerate some degree of renal insufficiency. Appreciate nephrology input.
Continue amiodarone, metoprolol and Eliquis for history of AFib
Original Note:
Today's Communication / Plan
-
Continue diuresis per nephrology
Await AM labs
Continue Toprol and amiodarone for rate control of AF
Eliquis 2.5mg BID
Consider use of midodrine to allow BP room for diuresis.
Impression / Plan
-
PCP: Stella Sutherland PA-C
Reading Tutor: Dr. Kiera Diaz
Impression:
Admitted with fall, clavicle fracture and possible acute HF 08/15/24
Syncope
Fall and left clavicle fracture
Acute on chronic HFpEF
Recurrent pleural effusion
s/p Left Asept pleural catheter placement 11/29/23, removed after admission to [place] with VATS and pulmonary decortication 01/2024
Small to moderate B/L pleural effusions by CXR 08/15/2024
R thoracentesis 08/17/2024 for 1500 cc - no growth on culture, fluid studies suggestive of transudate
R thoracentesis 08/21/2024 1350cc clear yellow
ANNA
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
Hyponatremia
Paroxysmal atrial fibrillation
Prior PVI (2016)
s/p PFA 08/24/23
Tikosyn stopped during [facility] rehab stay 02/2024 and now on chronic amiodarone
recurrent afib 08/22/2024 and Amio increased to 200 mg bid
Chronic anticoagulation on Eliquis
Takotsubo CM w/recovered EF (2005)
Negative workup for cardiac amyloid
HLD
HTN
MR
Renal nephrosis
Lung Nodule (2021, stable)
Anemia
celiac dz
Echo 05/18/2023: EF 69%, stage II diastolic dysfunction. Moderately dilated right atrium. Mild to moderate MR. Mild TR. PAP 36 mmHg. Small pericardial effusion
Echo 11/25/2023: EF 55-60%, global longitudinal strain is -14.2, stage III diastolic dysfunction, mild MR, dilated left atrium, aortic sclerosis, normal RV, pulmonary artery systolic pressure 45-50 mmHg
Echo 08/16/2024: EF 60-65%, mild cLVH, stage II diastolic dysfunction, mild MR, severe TR, estimated PAP 70 mmHg, small to moderate pericardial effusion w/o evidence of hemodynamic compromise
Plan:
-Presented after fall/syncope in the setting of prepping for capsule endoscopy. Admitted with clavicle fracture. Also w/ acute HF and ANNA. Nephrology following and managing diuretics.
-Continues on IV Bumex 2mg BID as BP tolerates. ProBNP rechecked 08/30 and up to 10,900.
-Creat has been improving, down from peak of 2.2 to 2.1 08/30. AM labs pending 08/31.
-Weight up 3lbs overnight to 140 lbs on 08/31. Previously dry weight was 131 lbs 05/2024.
-Consider use of midodrine to allow BP room for diuresis.
-Spironolactone on hold due to ANNA. Not chronically on NILAY/ARB/ARNI due to hypotension/CKD.
-Not on SGLT2 inhibitor due to h/o UTI.
-Continue Toprol 25mg daily.
-Continue supportive care and nutrition for hyponatremia and hypoalbuminemia
-EF stable by echo this admission. Prior cardiac amyloid work up negative
-There is also concern for ischemia of left foot and is being considered for angiogram, however will attempt to stabilize renal function and volume status prior to completing. Not felt to be a good candidate for revascularization. vascular following
-She continues with A-fib/a flutter on review of telemetry. Heart rates are controlled. Continue amiodarone. Could consider for eventual AVJ as patient has pacemaker in place
-Continue Eliquis 2.5 mg twice daily
-Syncope on admission felt to be secondary to acute on chronic anemia, frequent defecation, and orthostasis
HPI: Patient came to [facility] ER yesterday after fall and is now being mated with syncope, clavicle fracture and possible HFpEF with consultation to cardiology. Patient was seen in the office on 07/17/2024 and her proBNP was felt to be acceptable
although her weight was up to 136 lbs with her previous weight being 133 lbs, there were also moderate bilateral pleural effusions. Usual dose of torsemide 20 mg daily was continued and the patient was agreeable to referral for palliative care
assessment. eCW tasks was reviewed by me and patient was given 1 unit PRBCs on 08/02/2024 for Hgb of 7.7 and the Hgb only improved up to 8.2 so a second unit was given on 08/06/24. Remote device check 08/08/2024 had a 7-hour long atrial flutter episode
and patient was already on Eliquis, no other changes, but later that day patient called with weight gain and was told to take additional torsemide 20 mg for a total of 40 mg daily on 08/08/2024 and 08/09/2024 and although she lost 4 lbs she had ongoing
GILLIAM and fatigue. Then patient was preparing for a scheduled capsule endoscopy for her celiac disease by taking Miralax and after swallowing the capsule she felt disoriented, lost her sense of balance and had a fall. Patient was brought to [facility] ER
and admitted for syncope, clavicle fracture and possible acute on chronic HFpEF. Patient was given Lasix 40 mg IV x 1 in the ER. Her Cre on arrival was 1.0 and today is up to 1.4.
Progress Note - Reading Tutor
Subjective
Date of Service: August 31, 2024
Breathing feels somewhat worse today, however did not get diuretic yesterday due to hypotension.
Objective
Labs:
Labs
Hgb 11.9 g/dL (12.0-16.0) L 08/30/24 07:07
Hct 33.4 % (37.0-47.0) L 08/30/24 07:07
Plt Count 357 10^3/uL (130-400) 08/30/24 07:07
PT 24.9 Sec (11.4-14.6) H 08/30/24 07:07
INR 2.20 08/30/24 07:07
Sodium 124 mmol/L (135-145) L 08/30/24 07:07
Potassium 4.4 mmol/L (3.5-5.1) 08/30/24 07:07
BUN 71 mg/dl (7-17) H 08/30/24 07:07
Creatinine 2.1 mg/dL (0.6-1.0) H 08/30/24 07:07
Glucose 79 mg/dl (70-99) 08/30/24 07:07
Vital Signs and I&O:
Vital Signs
Temp Pulse Resp BP Pulse Ox
97.7 F 83 20 102/63 100
08/31/24 08:16 08/31/24 08:34 08/31/24 08:16 08/31/24 08:34 08/31/24 08:16
Vital Signs
Temp Pulse Resp BP Pulse Ox
97.7 F 83 20 102/63 100
08/31/24 08:16 08/31/24 08:34 08/31/24 08:16 08/31/24 08:34 08/31/24 08:16
Intake & Output
08/29/24 08/30/24 08/31/24 06/28/25
06:59 06:59 06:59 06:59
Intake Total 770 / 770 800 / 800 900 / 900
Balance 770 / 770 800 / 800 900 / 900
Physical Exam
Physical Exam
GEN: No distress, awake, alert, oriented x3
HEENT: supple, anicteric, mmm
LUNGS: scatt rhonchi
CV: Reg, S1/S2, 1/6 syst LSB, S3+
EXT: +1 edema
NEURO: Gross non-focal
SKIN: Warm, dry, no rash
[2024-08-31 10:43] LABS: Hematocrit 30.5 % (37.0-47.0); Hemoglobin 10.2 g/dL (12.0-16.0); Mean Corp Hgb Conc. 33.4 g/dL (33.0-37.0); Mean Corpuscular Volume 100.0 fL (81.0-99.0); Platelet Count 335 10^3/uL (130-400); Red Cell Dist. Width 20.0 % (11.5-14.5)
[2024-08-31] MEDS: ROXICODONE 5 MG PO (11:19)
[2024-08-31] MEDS: DUPHALAC/CHRONULAC PO (11:23)
[2024-08-31 11:36] LABS: Blood Urea Nitrogen 66 mg/dl (7-17); Calcium 7.3 mg/dl (8.4-10.2); Carbon Dioxide 21 mmol/L (22-30); Chloride 101 mmol/L (98-107); Estimated Creatinine Clearance 21 ml/min; Glucose 154 mg/dl (70-99); Magnesium 1.7 mg/dl (1.6-2.3); Potassium 3.7 mmol/L (3.5-5.1); Sodium 127 mmol/L (135-145); eGFR 24.64
[2024-08-31 11:55] LABS: Vitamin D, 25-OH*** < 12.8 ng/mL (30-80)
--- NOTE | 2024-08-31 12:13 | W.PN.NEPH.PH ---
Today's Communication / Plan
-
Samsca
Assessment/Plan
-
IMP:
Syncope likely vasovagal (patient was undergoing bowel prep for capsule endoscopy at the time)
Acute hypoxic respiratory insufficiency
Acute on chronic heart failure with preserved ejection fraction
Brigitte-baseline cr 1.1
Left clavicle fracture-sling in place
Lt 3rd thru 5th rib fractures
traumatic fractures, likely osteoporosis contributing
Chronic pleural effusions multiple thoracentesis this admit right 08/17 and 08/19
History of recurrent left-sided pleural effusion status post admission to [place] with VATS and pulmonary decortication 01/2024.
Ascites
Severe constipation
Ingested Capsule endoscopy [employer] has yet to pass
Peripheral artery disease
Chronic left foot ischemia
Left cephalic vein superficial thrombus
Anemia of chronic disease
chronic Hyponatremia
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
History of Takotsubo CM w/recovered EF (2005)
Paroxysmall atrial fibrillation
Prior PVI (2016)
s/p PFA 08/24/23
Hypothyroidism
Elevated troponin from nonischemic myocardial injury
Lung Nodule
Celiac disease
Moderate portal hypertensive gastropathy
PLan;
A/w syncope, noted acute CHF and left calvicular, rib fxs
BRIGITTE- UA with microhematuria, 2+alb on admit, prior UA was bland
no hydro on US 08/22, but limited study, bladder scan 160cc
repeat study 08/28 still limited , atrophic right kidney, left not seen well
h/o left nephrosis per pt as child (old US shows small left kidney 05/2024)
given BRIGITTE would want to hold any angiogram till cr stabilizes further , high risk of NOEL
severe hypoalbuminemia -U PCR -0.5, old UPEP neg, SPEP faint band but polyclonal, pending FLC
recurrent pleural effusion -thoracentesis x2 this admit
08/28 discussed dialysis with her though she would be high risk with high mortality rate at 6 [address]
08/30 Dr. Howe spoke with son in person and explained poor renal prognosis that she is not an ideal candidate for HD with frail status and further potential decrease in QOL if choses HD, she will remains at NH for retirement.
he understands and will speak to rest of the family and come up with decision
no emergent need of HD currently and hopefully will not need this admit
Continue diuretics
Will give Samsca again today
P.o. bicarbonate
-
-
Date of Service: August 31, 2024
CC / HPI / ROS
-
Chief Complaint:
BRIGITTE with CKD
History of Present Illness:
cr no change at 2.1
bp soft, wt no change
sodium improved
bicarb improved
Review of Systems: Mild shortness of breath with lower extremity leg pain.
no n/v
Labs
-
Labs:
WBC 8.0 10^3/uL (4.8-10.8) 08/31/24 10:32
RBC 3.05 10^6/uL (4.20-5.40) L 08/31/24 10:32
Hgb 10.2 g/dL (12.0-16.0) L 08/31/24 10:32
Hct 30.5 % (37.0-47.0) L 08/31/24 10:32
Plt Count 335 10^3/uL (130-400) 08/31/24 10:32
Sodium 127 mmol/L (135-145) L 08/31/24 10:31
Potassium 3.7 mmol/L (3.5-5.1) 08/31/24 10:31
Chloride 101 mmol/L (98-107) 08/31/24 10:31
Carbon Dioxide 21 mmol/L (22-30) L 08/31/24 10:31
BUN 66 mg/dl (7-17) H 08/31/24 10:31
Creatinine 2.0 mg/dL (0.6-1.0) H 08/31/24 10:31
eGFR 24.64 08/31/24 10:31
Glucose 154 mg/dl (70-99) H 08/31/24 10:31
Calcium 7.3 mg/dl (8.4-10.2) L 08/31/24 10:31
Phosphorus 3.5 mg/dl (2.5-4.5) 08/31/24 10:31
Tuf-H-Dssqkljmenu Pept 94098 pg/ml 08/30/24 17:37
Albumin 1.7 g/dl (3.5-5.0) L 08/30/24 07:07
Physical Exam
-
Vital Signs:
Vital Signs
Temp Pulse Resp BP Pulse Ox
97.8 F 80 18 142/68 94
08/31/24 11:45 08/31/24 11:45 08/31/24 11:45 08/31/24 11:45 08/31/24 11:45
Cardiovascular:: Regular rate and rhythm
Respiratory:: Bilateral: Coarse
Lung Excursion:: Normal (decreased BS)
Abdomen:: Nontender and Soft
Bowel Sounds:: Normal
Extremity Edema:: +1: Bilateral:
Lee Catheter: No
[2024-08-31] MEDS: BenGay-Like TOPICAL ×2 (12:49→17:57)
[2024-08-31] MEDS: SAMSCA 15 MG PO (12:49)
[2024-08-31] MEDS: DILAUDID 0.25 MG IV (13:29)
--- NOTE | 2024-08-31 15:02 | CM ---
Alert awake oriented.
Pt requiring pain med prn.
Family visiting.
PT recommends SNF
Please check with [facility] day on dc for a bed availability.
Nephrology involved .Pt may need HD in future.
Pt is not interested in Hospice nor Palliative care.
[facility]
report [phone]
fax [phone]
PLAN To [facility] at dc -check for bed availability .
[2024-08-31] MEDS: BUMEX IV (19:56)
[2024-08-31] MEDS: REMOVE LIDOCAINE PATCH 2 PATCH REMOVE (20:15)
[2024-08-31] MEDS: ASPIR LOW (ENTERIC COATED) 81 MG PO (21:58)
[2024-09-01] VITALS (8 sets, daily range): BP systolic 85–120; BP diastolic 48–84; BMI 22.2
[2024-09-01] MEDS: TYLENOL PO ×2 (00:33→23:39)
[2024-09-01] MEDS: TYLENOL 650 MG PO ×5 (04:53→23:58)
[2024-09-01] MEDS: SYNTHROID 150 MCG PO (05:07)
[2024-09-01 05:16] LABS: Hematocrit 33.4 % (37.0-47.0); Hemoglobin 11.2 g/dL (12.0-16.0); Mean Corp Hgb Conc. 33.5 g/dL (33.0-37.0); Mean Corpuscular Volume 99.1 fL (81.0-99.0); Platelet Count 347 10^3/uL (130-400); Red Cell Dist. Width 20.0 % (11.5-14.5)
[2024-09-01 05:43] LABS: Blood Urea Nitrogen 70 mg/dl (7-17); Calcium 7.4 mg/dl (8.4-10.2); Carbon Dioxide 19 mmol/L (22-30); Chloride 104 mmol/L (98-107); Estimated Creatinine Clearance 24 ml/min; Glucose 104 mg/dl (70-99); Magnesium 1.9 mg/dl (1.6-2.3); Potassium 4.0 mmol/L (3.5-5.1); Sodium 128 mmol/L (135-145); eGFR 29.94
--- NOTE | 2024-09-01 07:43 | W.PN.CARDCBS ---
Addendum entered and electronically signed by Sukhdev Renner MD 09/01/24 12:05:
I saw and examined the patient.
The Hedge Fund Principal's note was reviewed and I agree with the note.
Comment: Briefly, 79-year-old woman past medical history of heart failure with preserved ejection fraction, hypoalbuminemia, recurrent pleural effusion status post Pleurx and subsequent VATS, persistent atrial fibrillation status post PVI and
permanent pacemaker who presents in acute on chronic heart failure. Likely a component of hypoalbuminemia contributing as well.
Still mildly volume overloaded but improved today
Cr down to 1.7
Would continue IV Bumex
Chest x-ray with resolving pulmonary edema - wean oxygen as able
Continue amiodarone, metoprolol and Eliquis for history of AFib
Original Note:
Today's Communication / Plan
-
Continue diuresis with IV bumex as BP allows
Continue amiodarone and Toprol
Continue Eliquis.
Impression / Plan
-
PCP: Stella Sutherland PA-C
Corporate Planning Manager: Dr. Kiera Diaz
Impression:
Admitted with fall, clavicle fracture and possible acute HF 08/15/24
Syncope
Fall and left clavicle fracture
Acute on chronic HFpEF
Recurrent pleural effusion
s/p Left Asept pleural catheter placement 11/29/23, removed after admission to [place] with VATS and pulmonary decortication 01/2024
Small to moderate B/L pleural effusions by CXR 08/15/2024
R thoracentesis 08/17/2024 for 1500 cc - no growth on culture, fluid studies suggestive of transudate
R thoracentesis 08/21/2024 1350cc clear yellow
ANNA
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
Hyponatremia
Paroxysmal atrial fibrillation
Prior PVI (2016)
s/p PFA 08/24/23
Tikosyn stopped during [facility] rehab stay 02/2024 and now on chronic amiodarone
recurrent afib 08/22/2024 and Amio increased to 200 mg bid
Chronic anticoagulation on Eliquis
Takotsubo CM w/recovered EF (2005)
Negative workup for cardiac amyloid
HLD
HTN
MR
Renal nephrosis
Lung Nodule (2021, stable)
Anemia
celiac dz
Echo 05/18/2023: EF 69%, stage II diastolic dysfunction. Moderately dilated right atrium. Mild to moderate MR. Mild TR. PAP 36 mmHg. Small pericardial effusion
Echo 11/25/2023: EF 55-60%, global longitudinal strain is -14.2, stage III diastolic dysfunction, mild MR, dilated left atrium, aortic sclerosis, normal RV, pulmonary artery systolic pressure 45-50 mmHg
Echo 08/16/2024: EF 60-65%, mild cLVH, stage II diastolic dysfunction, mild MR, severe TR, estimated PAP 70 mmHg, small to moderate pericardial effusion w/o evidence of hemodynamic compromise
Plan:
-Presented after fall/syncope in the setting of prepping for capsule endoscopy. Admitted with clavicle fracture. Also w/ acute HF and ANNA. Nephrology following and managing diuretics.
-Continues on IV Bumex 2mg BID as BP tolerates. ProBNP rechecked 08/30 and up to 10,900. Notes she feels about the same as yesterday from a breathing standpoint.
-Creat continues to improve, down to 1.7 on 09/01. Peaked at 2.2.
-Weight down 3lbs overnight, down to 137 lbs after getting a dose of bumex 08/31. Previously dry weight was felt to be 131 lbs 05/2024.
-Hold parameters on diuretic reduced by primary service to allow for more frequent dosing. Could consider use of midodrine to allow BP room for diuresis if needed.
-Spironolactone on hold due to ANNA. Not chronically on NILAY/ARB/ARNI due to hypotension/CKD.
-Not on SGLT2 inhibitor due to h/o UTI.
-Continue Toprol 25mg daily.
-EF stable by echo this admission. Prior cardiac amyloid work up negative
-There is also concern for ischemia of left foot and is being considered for angiogram, however will attempt to stabilize renal function and volume status prior to completing. Not felt to be a good candidate for revascularization. vascular following
-She continues with A-fib/a flutter on review of telemetry. Heart rates are controlled. Continue amiodarone. Could consider for eventual AVJ as patient has pacemaker in place
-Continue Eliquis 2.5 mg twice daily
-Syncope on admission felt to be secondary to acute on chronic anemia, frequent defecation, and orthostasis
-Wean O2 as able.
HPI: Patient came to [facility] ER yesterday after fall and is now being mated with syncope, clavicle fracture and possible HFpEF with consultation to cardiology. Patient was seen in the office on 07/17/2024 and her proBNP was felt to be acceptable
although her weight was up to 136 lbs with her previous weight being 133 lbs, there were also moderate bilateral pleural effusions. Usual dose of torsemide 20 mg daily was continued and the patient was agreeable to referral for palliative care
assessment. eCW tasks was reviewed by me and patient was given 1 unit PRBCs on 08/02/2024 for Hgb of 7.7 and the Hgb only improved up to 8.2 so a second unit was given on 08/06/24. Remote device check 08/08/2024 had a 7-hour long atrial flutter episode
and patient was already on Eliquis, no other changes, but later that day patient called with weight gain and was told to take additional torsemide 20 mg for a total of 40 mg daily on 08/08/2024 and 08/09/2024 and although she lost 4 lbs she had ongoing
GILLIAM and fatigue. Then patient was preparing for a scheduled capsule endoscopy for her celiac disease by taking Miralax and after swallowing the capsule she felt disoriented, lost her sense of balance and had a fall. Patient was brought to [facility] ER
and admitted for syncope, clavicle fracture and possible acute on chronic HFpEF. Patient was given Lasix 40 mg IV x 1 in the ER. Her Cre on arrival was 1.0 and today is up to 1.4.
Progress Note - Corporate Planning Manager
Subjective
Date of Service: September 01, 2024
Breathing feels about the same.
Objective
Labs:
09/01/24 04:56
09/01/24 04:56
Labs
Hgb 11.2 g/dL (12.0-16.0) L 09/01/24 04:56
Hct 33.4 % (37.0-47.0) L 09/01/24 04:56
Plt Count 347 10^3/uL (130-400) 09/01/24 04:56
PT 24.9 Sec (11.4-14.6) H 08/30/24 07:07
INR 2.20 08/30/24 07:07
Sodium 128 mmol/L (135-145) L 09/01/24 04:56
Potassium 4.0 mmol/L (3.5-5.1) 09/01/24 04:56
BUN 70 mg/dl (7-17) H 09/01/24 04:56
Creatinine 1.7 mg/dL (0.6-1.0) H 09/01/24 04:56
Glucose 104 mg/dl (70-99) H 09/01/24 04:56
Vital Signs and I&O:
Vital Signs
Temp Pulse Resp BP Pulse Ox
97.7 F 72 14 120/84 99
09/01/24 03:24 09/01/24 05:07 09/01/24 03:24 09/01/24 05:07 09/01/24 03:24
Vital Signs
Temp Pulse Resp BP Pulse Ox
97.7 F 72 14 120/84 99
09/01/24 03:24 09/01/24 05:07 09/01/24 03:24 09/01/24 05:07 09/01/24 03:24
Intake & Output
08/30/24 08/31/24 09/01/24 09/02/24
06:59 06:59 06:59 06:59
Intake Total 800 / 800 900 / 900 1620 / 1620
Balance 800 / 800 900 / 900 1620 / 1620
Physical Exam
Physical Exam
GEN: No distress, awake, alert, oriented x3
HEENT: supple, anicteric, mmm
LUNGS: decreased breath sounds, no wheezes
CV: Reg, S1/S2, 1/6 syst LSB, S3+
EXT: +1 edema
NEURO: Gross non-focal
SKIN: Warm, dry, no rash
--- NOTE | 2024-09-01 09:36 | W.PN.HOSP.TC ---
Today's Communication/Plan
-
Cont Bumex
Albumin boluses
Low dose Midodrine with holding parameters
cont pain control, prn oxycodone increased to 7.5 mg
Bengay-like cream Left shoulder and back
Assessment / Plan
Assessment / Plan
Physical Exam
General: no acute distress appears comfortable
HEENT: NormoCephalic, Moist mucous membranes and Atraumatic
Respiratory: Bibasilar crackles
Cardiac: S1/S2 and Regular Rhythm; No Murmur or Rub
GI: Soft, Non Tender, abd distended and Normal Bowel Sounds
Musculoskeletal: No Clubbing, No Cyanosis, Left arm with edema, Left arm in sling, +2 pitting edema LUE,Bilateral lower extremities edema +1, left toes cyanotic appearance
Neuro: AO x3 conversant coherent
Psych: Calm
HPI: 79F hx pleural effusion HFpEF HTN afib ppm Celiac dz HLD pulm htn here for evaluation syncope with associate clavicle and rib fractures likely d/t fall. Syncope had occurred while taking bowel prep for capsule endoscopy. Patient endorsed
feeling lightheaded/dehydrated prior to event.
#Syncope likely vasovagal (patient was undergoing bowel prep for capsule endoscopy at the time)
Head CT negative
orthostatic vital signs, unable to obtain, Patient has not been able to stand prolonged time for standing blood pressure d/t left lower ext pain as below
#Acute hypoxic respiratory insufficiency
#Left clavicle fracture-sling in place
#Lt 3rd thru 5th rib fractures
#traumatic fractures, likely osteoporosis contributing
Acute hypoxia multifactorial from poor inspiratory effort from rib fractures, chronic right pleural effusion, and abdominal distention from constipation
Thoracic Lumbar XR appreciated multilevel discogenic degenerative disease, small to mod b/l pleural effusions, acute interstitial/alveolar cardiogenic edema, large dense b/l lower lobe airspace consolidations most likely d/t atelectasis
Appreciate orthopedic surgery input, recommend conservative management with left arm sling for left clavicle fracture
Repeat Shoulder X-ray 08/30 appreciated comminuted and displaced fracture distal left clavicle radiographically stable, left rib fractures displaced 3rd 4th and 5th
discussed with Orthopedic on-call regarding clavicle fx X-ray result 08/30 who recommended continuing NWB LUE 4-6 wks from fx, follow up with Orthopedic before advancing activity/weight-bearing status
Intermittently requiring oxygen supplementation throughout hospitalization
Continue pain control, incentive spirometry
Pain regimen tapered down to oxycodone 5 mg Q6HPRN mod/severe pain and Dilaudid IV 0.25 mg Q4HPRN severe breakthrough pain, regimen reduced d/t concern oversedation and side effects nausea and loss of appetite, nausea and appetite since improved but
pain persists oxycodone titrated up to 7.5 mg q6hprn
Continued scheduled Tylenol, Bengay-like cream, Gabapentin 100 mg TID added for possible neuropathic pain ('pins and needle' sensation Lower ext's) itrated up to 200 mg BID
# Chronic pleural effusions suspected multifactorial from partial hypoalbuminemia, deconditioning, possible malnutrition unclear severity
# Right pleural effusion status post thoracentesis on 05/23/2024 with symptomatic improvement in 1350 cc of fluid removed
# History of recurrent left-sided pleural effusion status post admission to [place] with VATS and pulmonary decortication 01/2024.
# Ascites
Status post right thoracentesis on 08/17, draining 1.5 L, cultures negative for growth, path negative for malignancy, shows inflammation
Status post right thoracentesis 08/19, draining 1.35 L
Cardiology and pulmonology following, changed from IV Lasix to Bumex 1 mg IV twice daily, since placed on hold w worsening kidney function 08/27
repeat chest x-ray on Sunday 08/27 appreciated no significant re-accumulation pleural effusion
CXR 09/01 small to mod pleural effusion Rt, slight increase from previous, stable small left, bibasilar opacities possible atelectasis vs pna (most likely atelectasis)
Not enough fluid in the abdomen for paracentesis
albumin boluses intermittently given when pressures run low systolic 90s 80s
Low dose Midodrine 2.5 mg TID w/ holding parameters started
# Acute on chronic heart failure with preserved ejection fraction
Cardiology eval appreciated, changed from IV Lasix to Bumex 1 mg IV twice daily, later increased to 2 mg IV BID as below
#ANNA
#Metabolic Acidosis
Possibly cardiorenal syndrome
Cardio and Nephro eval appreciated
diuresis placed on hold w/ worsening kidney function 08/27 started on bicarb gtt as per Nephro, however no improvement noted, switched back to aggressive diuresis
cont Bumex 2 mg IV BID as per nephro
#Severe constipation
#Ingested Capsule endoscopy
Status post enema 08/21
Continue aggressive bowel regimen
passed capsule endoscopy 08/26
Follow up GI for results
#Peripheral artery disease
#Cyanotic left foot
#Acute on Chronic left foot ischemia heel wound
Appreciate vascular surgery input, patient has chronic SFA stenosis
Vascular surgery eval appreciated eventual angiography with attempted left SFA angioplasty/stenting planned
Nephro recommends holding angiography at this time d/t ANNA as above
wound care consult appreciated
#Left cephalic vein superficial thrombus
Supportive care
# Anemia of chronic disease
Ingested capsule endoscopy prior to coming to hospital, has kit for retrieval when passes. Capsule passed 08/26 as above
Hemoglobin dipped to 7.8
Status post 1 unit packed red blood cells with appropriate response, Hgb has remained stable since
Continue to monitor, transfuse as needed
#Hyponatremia
#Metabolic Acidosis
Fluid restrict, trend sodium
Samsca bicarb as per Nephro
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
#History of Takotsubo CM w/recovered EF (2005)
# Paroxysmal atrial fibrillation
# Prior PVI (2016)
# s/p PFA 08/24/23
-continue [facility] eliquis 2.5 bid
-continue [facility] metoprolol
-cardiology increased amiodarone to 200 mg twice a day, cont
# Hypothyroidism
-Synthroid continued
-TFT appears to suggest Hypothyroidism uncontrolled, TSH elevated
-pt endorses compliance with synthroid and no recent changes in dose
-repeated TFT shows TSH significantly improved trending down
-cont current synthroid for now, outpt follow up with Endocrinology recommended
#Severe Vit D deficiency
Home Vit D supplementation increased to High Dose weekly supplement
#Elevated troponin from nonischemic myocardial injury
#Lung Nodule
# Celiac disease
gluten free diet
#Moderate portal hypertensive gastropathy
PT/OT appreciated SNF rehab
DVT PPX on Eliquis
Code status - full code
Patient with multiple comorbidities� inpt palliative eval appreciated
Disposition�short-term rehab at [facility] when stable
I spent a total of 45 minutes with the patient or on the floor. More than 50% of this time involved counseling and coordination of care.
Anticipated Discharge: > 48 hours
Subjective/Interval History
-
Date of Service: September 01, 2024
Appetite improving though pain persists. Episodic hypotension systolic 80s noted throughout day. Patient otherwise AOx3 conversant coherent. Denies lightheadedness
Objective Data
-
Labs:
Laboratory Results
09/01/24
04:56
WBC 9.2
Hgb 11.2 L
Hct 33.4 L
Plt Count 347
Sodium 128 L
Potassium 4.0
Chloride 104
Carbon Dioxide 19 L
BUN 70 H
Creatinine 1.7 H
Glucose 104 H
Calcium 7.4 L
Vital Signs:
Vital Signs
Temp Pulse Resp BP Pulse Ox
97.4 F 64 16 100/56 98
09/01/24 07:15 09/01/24 07:15 09/01/24 07:15 09/01/24 07:15 09/01/24 07:15
I&O
08/31/24 09/01/24 09/02/24
06:59 06:59 06:59
Intake Total 900 / 900 1620 / 1620
Balance 900 / 900 1620 / 1620
[2024-09-01] MEDS: BenGay-Like 1 APPLIC TOPICAL ×3 (10:05→23:31)
[2024-09-01] MEDS: BUMEX 2 MG IV ×2 (10:05→20:58)
[2024-09-01] MEDS: LIDOCAINE 4% PATCH 2 PATCH TOPICAL (10:06)
[2024-09-01] MEDS: ELIQUIS 2.5 MG PO ×2 (10:06→20:58)
[2024-09-01] MEDS: KCL 20 MEQ PO (10:06)
[2024-09-01] MEDS: MIRALAX 17 GRAMS PO (10:07)
[2024-09-01] MEDS: NEURONTIN 100 MG PO (10:07)
[2024-09-01] MEDS: PACERONE 200 MG PO ×2 (10:08→21:00)
[2024-09-01] MEDS: SANTYL OINTMENT 1 APPLIC TOPICAL (10:08)
[2024-09-01] MEDS: OSCAL CAL 500 500 MG PO ×2 (10:08→20:59)
[2024-09-01] MEDS: SODIUM BICARBONATE 1300 MG PO ×2 (10:09→20:59)
[2024-09-01] MEDS: SENOKOT-S PO (10:09)
[2024-09-01] MEDS: TOPROL XL 25 MG PO (10:10)
[2024-09-01] MEDS: ZETIA 10 MG PO (10:10)
[2024-09-01] MEDS: VITAMIN C 1000 MG PO (10:10)
[2024-09-01] MEDS: VITAMIN B-12 1000 MCG PO (10:10)
[2024-09-01] MEDS: HYDROPHOR 1 APPLIC TOPICAL ×2 (10:11→21:00)
[2024-09-01] MEDS: FLUSH (NSS) 2 FLUSH IV (10:12)
--- NOTE | 2024-09-01 12:33 | PTCARENOTE ---
Pt's inital BP at 1130 93/48, asymptomatic. Rechecked BP and 99/48. Remains asymptomatic, continuing to monitor.
--- NOTE | 2024-09-01 12:52 | W.PN.NEPH.PH ---
Today's Communication / Plan
-
Continue diuretics
Assessment/Plan
-
IMP:
Syncope likely vasovagal (patient was undergoing bowel prep for capsule endoscopy at the time)
Acute hypoxic respiratory insufficiency
Acute on chronic heart failure with preserved ejection fraction
Brigitte-baseline cr 1.1
Left clavicle fracture-sling in place
Lt 3rd thru 5th rib fractures
traumatic fractures, likely osteoporosis contributing
Chronic pleural effusions multiple thoracentesis this admit right 08/17 and 08/19
History of recurrent left-sided pleural effusion status post admission to [place] with VATS and pulmonary decortication 01/2024.
Ascites
Severe constipation
Ingested Capsule endoscopy [employer]Y LADLE has yet to pass
Peripheral artery disease
Chronic left foot ischemia
Left cephalic vein superficial thrombus
Anemia of chronic disease
chronic Hyponatremia
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
History of Takotsubo CM w/recovered EF (2005)
Paroxysmall atrial fibrillation
Prior PVI (2016)
s/p PFA 08/24/23
Hypothyroidism
Elevated troponin from nonischemic myocardial injury
Lung Nodule
Celiac disease
Moderate portal hypertensive gastropathy
PLan;
A/w syncope, noted acute CHF and left calvicular, rib fxs
BRIGITTE- UA with microhematuria, 2+alb on admit, prior UA was bland
no hydro on US 08/22, but limited study, bladder scan 160cc
repeat study 08/28 still limited , atrophic right kidney, left not seen well
h/o left nephrosis per pt as child (old US shows small left kidney 05/2024)
given BRIGITTE would want to hold any angiogram till cr stabilizes further , high risk of NOEL
severe hypoalbuminemia -U PCR -0.5, old UPEP neg, SPEP faint band but polyclonal, pending FLC
recurrent pleural effusion -thoracentesis x2 this admit
08/28 discussed dialysis with her though she would be high risk with high mortality rate at 6 [address]
08/30 Dr. Howe spoke with son in person and explained poor renal prognosis that she is not an ideal candidate for HD with frail status and further potential decrease in QOL if choses HD, she will remains at NH for halfway.
he understands and will speak to rest of the family and come up with decision
no emergent need of HD currently and hopefully will not need this admit
Continue diuretics
P.o. bicarbonate
Creatinine better. Clinically states that she is feeling better as well
-
-
Date of Service: September 01, 2024
CC / HPI / ROS
-
Chief Complaint:
BRIGITTE with CKD
History of Present Illness:
cr improved
bp soft, wt no change
sodium improved
bicarb improved
Review of Systems: Mild shortness of breath with lower extremity leg pain.
no n/v
Labs
-
Labs:
WBC 9.2 10^3/uL (4.8-10.8) 09/01/24 04:56
RBC 3.37 10^6/uL (4.20-5.40) L 09/01/24 04:56
Hgb 11.2 g/dL (12.0-16.0) L 09/01/24 04:56
Hct 33.4 % (37.0-47.0) L 09/01/24 04:56
Plt Count 347 10^3/uL (130-400) 09/01/24 04:56
Sodium 128 mmol/L (135-145) L 09/01/24 04:56
Potassium 4.0 mmol/L (3.5-5.1) 09/01/24 04:56
Chloride 104 mmol/L (98-107) 09/01/24 04:56
Carbon Dioxide 19 mmol/L (22-30) L 09/01/24 04:56
BUN 70 mg/dl (7-17) H 09/01/24 04:56
Creatinine 1.7 mg/dL (0.6-1.0) H 09/01/24 04:56
eGFR 29.94 09/01/24 04:56
Glucose 104 mg/dl (70-99) H 09/01/24 04:56
Calcium 7.4 mg/dl (8.4-10.2) L 09/01/24 04:56
Phosphorus 3.6 mg/dl (2.5-4.5) 09/01/24 04:56
Hqd-B-Dyqybnvpzpv Pept 09444 pg/ml 08/30/24 17:37
Albumin 1.7 g/dl (3.5-5.0) L 08/30/24 07:07
Physical Exam
-
Vital Signs:
Vital Signs
Temp Pulse Resp BP Pulse Ox
97.3 F 62 18 99/48 97
09/01/24 11:10 09/01/24 12:15 09/01/24 11:10 09/01/24 12:15 09/01/24 12:15
Cardiovascular:: Regular rate and rhythm
Respiratory:: Bilateral: Coarse
Lung Excursion:: Normal (decreased BS)
Abdomen:: Nontender and Soft
Bowel Sounds:: Normal
Extremity Edema:: +1: Bilateral:
Lee Catheter: No
[2024-09-01] MEDS: DUPHALAC/CHRONULAC 20 GRAMS PO (13:12)
[2024-09-01] MEDS: BenGay-Like TOPICAL (13:14)
[2024-09-01] MEDS: ROXICODONE 5 MG PO (13:16)
[2024-09-01] MEDS: FLEXBUMIN 100 IV ×2 (17:14→23:35)
--- NOTE | 2024-09-01 18:45 | PTCARENOTE ---
Addendum entered and electronically signed by Dinah Pabon MD 09/02/24 13:04:
MD aware. Bleeding likely from straining. Will cont to monitor for now
Original Note:
Pt had BM on bed pain with small amt of blood noted. No history of hemorrhoids per patient. Dr Pabon notified via TT.
[2024-09-01] MEDS: NEURONTIN 200 MG PO (20:57)
[2024-09-01] MEDS: REMOVE LIDOCAINE PATCH 2 PATCH REMOVE (20:59)
[2024-09-01] MEDS: ASPIR LOW (ENTERIC COATED) 81 MG PO (20:59)
[2024-09-01] MEDS: SENOKOT-S 2 TABLET PO (21:00)
[2024-09-01] MEDS: MIRALAX PO (23:41)
[2024-09-02] VITALS (7 sets, daily range): BP systolic 86–119; BP diastolic 44–60; BMI 22.0
[2024-09-02] MEDS: TYLENOL 650 MG PO ×5 (05:02→21:06)
[2024-09-02] MEDS: SYNTHROID 150 MCG PO (05:02)
[2024-09-02 05:22] LABS: Hematocrit 30.3 % (37.0-47.0); Hemoglobin 10.0 g/dL (12.0-16.0); Mean Corp Hgb Conc. 33.0 g/dL (33.0-37.0); Mean Corpuscular Volume 100.7 fL (81.0-99.0); Platelet Count 341 10^3/uL (130-400); Red Cell Dist. Width 20.1 % (11.5-14.5)
[2024-09-02 05:56] LABS: Blood Urea Nitrogen 66 mg/dl (7-17); Calcium 7.2 mg/dl (8.4-10.2); Carbon Dioxide 21 mmol/L (22-30); Chloride 105 mmol/L (98-107); Estimated Creatinine Clearance 24 ml/min; Glucose 103 mg/dl (70-99); Magnesium 1.8 mg/dl (1.6-2.3); Potassium 3.8 mmol/L (3.5-5.1); Sodium 132 mmol/L (135-145); eGFR 29.94
--- NOTE | 2024-09-02 06:27 | W.PN.HOSP.TC ---
Today's Communication/Plan
-
diuresis
midodrine
wean O2 as tolerated
monitor renal function
pain control
PT/OT
Assessment / Plan
Assessment / Plan
Physical Exam
General: no acute distress appears comfortable
HEENT: NormoCephalic, Moist mucous membranes and Atraumatic
Respiratory: Bibasilar crackles
Cardiac: S1/S2 and Regular Rhythm; No Murmur or Rub
GI: Soft, Non Tender, abd distended and Normal Bowel Sounds
Musculoskeletal: No Clubbing, Left arm with edema, Left arm in sling, +2 pitting edema LUE,Bilateral lower extremities edema +1, left toes cyanotic appearance, left foot cool to touch, colder in comparison to right foot
Neuro: AO x3 conversant coherent
Psych: Calm
HPI: 79F hx pleural effusion HFpEF HTN afib ppm Celiac dz HLD pulm htn here for evaluation syncope with associate clavicle and rib fractures likely d/t fall. Syncope had occurred while taking bowel prep for capsule endoscopy. Patient endorsed
feeling lightheaded/dehydrated prior to event.
#Syncope likely vasovagal (patient was undergoing bowel prep for capsule endoscopy at the time)
Head CT negative
orthostatic vital signs, unable to obtain, Patient has not been able to stand prolonged time for standing blood pressure d/t left lower ext pain as below
#Acute hypoxic respiratory insufficiency multifactorial rib fractures, atelectasis, heart failure, pleural effusions
#Left clavicle fracture-sling in place
#Lt 3rd thru 5th rib fractures Displaced
#traumatic fractures, likely osteoporosis contributing
Thoracic Lumbar XR appreciated multilevel discogenic degenerative disease, small to mod b/l pleural effusions, acute interstitial/alveolar cardiogenic edema, large dense b/l lower lobe airspace consolidations most likely d/t atelectasis
Orthopedic eval appreciated conservative mgmt left clavicle fracture, arm sling, NWB LUE 4-6wks, follow up with orthopedic before advancing activity
Repeat Shoulder X-ray 08/30 appreciated comminuted and displaced fracture distal left clavicle radiographically stable
Intermittently requiring oxygen supplementation throughout hospitalization
Continue pain control, incentive spirometry
Pain regimen tapered down to oxycodone 5 mg Q6HPRN mod/severe pain and Dilaudid IV 0.25 mg Q4HPRN severe breakthrough pain, regimen reduced d/t concern oversedation and side effects nausea and loss of appetite, nausea and appetite since improved but
pain persists oxycodone titrated up to 7.5 mg q6hprn
Continued scheduled Tylenol, Bengay-like cream, Gabapentin 100 mg TID added for possible neuropathic pain ('pins and needle' sensation Lower ext's) titrated up to 200 mg BID
# Chronic pleural effusions suspected multifactorial from partial hypoalbuminemia, deconditioning, possible malnutrition unclear severity
# Right pleural effusion status post thoracentesis on 05/23/2024 with symptomatic improvement in 1350 cc of fluid removed
# History of recurrent left-sided pleural effusion status post admission to [place] with VATS and pulmonary decortication 01/2024.
# Ascites
Status post right thoracentesis on 08/17, draining 1.5 L, cultures negative for growth, path negative for malignancy, shows inflammation
Status post right thoracentesis 08/19, draining 1.35 L
Pulm eval appreciated
repeat chest x-ray on Sunday 08/27 appreciated no significant re-accumulation pleural effusion
CXR 09/01 small to mod pleural effusion Rt, slight increase from previous, stable small left, bibasilar opacities possible atelectasis vs pna (most likely atelectasis)
Albumin boluses intermittently given when pressures run low systolic 90s 80s
Low dose Midodrine 2.5 mg TID w/ holding parameters started, titrated up to 5m TID
# Acute on chronic heart failure with preserved ejection fraction
#ANNA
#Metabolic Acidosis
#Cardiorenal syndrome
Cardio and Nephro eval appreciated
cont aggressive diuresis Bumex 2 mg IV BID as blood pressure tolerates
#Severe constipation
#Ingested Capsule endoscopy
Status post enema 08/21
Continue aggressive bowel regimen
passed capsule endoscopy 08/26
Follow up GI for results
#Peripheral artery disease
#Cyanotic left foot
#Acute on Chronic left foot ischemia heel wound
Appreciate vascular surgery input, patient has chronic SFA stenosis
Vascular surgery eval appreciated eventual angiography with attempted left SFA angioplasty/stenting planned
Nephro recommends holding angiography at this time d/t ANNA as above
wound care consult appreciated
#Left cephalic vein superficial thrombus
Supportive care
# Anemia of chronic disease
Hemoglobin dipped to 7.8
Status post 1 unit PRBC 08/18/24 with appropriate response, Hgb has remained stable since
Continue to monitor, transfuse as needed
#Hyponatremia
#Metabolic Acidosis
Fluid restrict, trend sodium
Samsca bicarb as per Nephro
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
#History of Takotsubo CM w/recovered EF (2005)
# Paroxysmal atrial fibrillation
# Prior PVI (2016)
# s/p PFA 08/24/23
-continue [employer]IATE eliquis 2.5 bid
-continue [employer] metoprolol
-amiodarone 200 mg BID as per cardio
# Hypothyroidism
-Synthroid continued
-TFT appears to suggest Hypothyroidism uncontrolled, TSH elevated
-pt endorses compliance with synthroid and no recent changes in dose
-repeated TFT shows TSH significantly improved trending down
-cont current synthroid for now, outpt follow up with Endocrinology recommended
#Severe Vit D deficiency
Home Vit D supplementation increased to High Dose weekly supplement, cont
#Elevated troponin from nonischemic myocardial injury
#Lung Nodule
# Celiac disease
gluten free diet
#Moderate portal hypertensive gastropathy
PT/OT appreciated SNF rehab
DVT PPX on Eliquis
Code status - full code
Patient with multiple comorbidities� inpt palliative eval appreciated patient not ready for Hospice at this time
Disposition�short-term rehab at [facility] when stable
Discussed with patient and patient's son All
I spent a total of 50 minutes with the patient or on the floor. More than 50% of this time involved counseling and coordination of care.
Anticipated Discharge: > 48 hours
Subjective/Interval History
-
Date of Service: September 02, 2024
LLE pain persists, patient otherwise appears relatively well at rest.
Objective Data
-
Labs:
Laboratory Results
09/02/24
04:49
WBC 8.6
Hgb 10.0 L
Hct 30.3 L
Plt Count 341
Sodium 132 L
Potassium 3.8
Chloride 105
Carbon Dioxide 21 L
BUN 66 H
Creatinine 1.7 H
Glucose 103 H
Calcium 7.2 L
Vital Signs:
Vital Signs
Temp Pulse Resp BP Pulse Ox
97.5 F 62 14 86/44 94
09/02/24 03:06 09/02/24 03:06 09/02/24 03:06 09/02/24 03:06 09/02/24 03:06
I&O
08/31/24 09/01/24 09/02/24
06:59 06:59 06:59
Intake Total 900 / 900 1620 / 1620 700 / 700
Balance 900 / 900 1620 / 1620 700 / 700
[2024-09-02] MEDS: HYDROPHOR 1 APPLIC TOPICAL ×2 (08:12→21:06)
[2024-09-02] MEDS: LIDOCAINE 4% PATCH 2 PATCH TOPICAL (08:12)
[2024-09-02] MEDS: SANTYL OINTMENT 1 APPLIC TOPICAL (08:13)
[2024-09-02] MEDS: AYR SALINE NASAL GEL 1 APPLIC NASAL (08:13)
[2024-09-02] MEDS: BUMEX IV (08:14)
[2024-09-02] MEDS: MIRALAX PO ×2 (08:15→21:07)
[2024-09-02] MEDS: SENOKOT-S PO (08:15)
[2024-09-02] MEDS: SODIUM BICARBONATE 1300 MG PO ×2 (08:15→21:06)
[2024-09-02] MEDS: VITAMIN C 1000 MG PO (08:16)
[2024-09-02] MEDS: NEURONTIN 200 MG PO ×2 (08:16→21:05)
[2024-09-02] MEDS: PACERONE 200 MG PO ×2 (08:16→21:05)
[2024-09-02] MEDS: TOPROL XL PO (08:17)
[2024-09-02] MEDS: ELIQUIS 2.5 MG PO ×2 (08:17→21:04)
[2024-09-02] MEDS: VITAMIN B-12 1000 MCG PO (08:17)
[2024-09-02] MEDS: KCL 20 MEQ PO (08:17)
[2024-09-02] MEDS: ZETIA 10 MG PO (08:17)
[2024-09-02] MEDS: FLEXBUMIN 100 IV (08:18)
[2024-09-02] MEDS: OSCAL CAL 500 500 MG PO ×2 (08:22→21:05)
[2024-09-02] MEDS: FLUSH (NSS) 1 FLUSH IV (08:22)
[2024-09-02] MEDS: BenGay-Like 1 APPLIC TOPICAL ×4 (08:29→21:07)
[2024-09-02] MEDS: ROXICODONE 7.5 MG PO ×3 (10:34→23:19)
[2024-09-02] MEDS: DUPHALAC/CHRONULAC 20 GRAMS PO (12:30)
--- NOTE | 2024-09-02 12:41 | W.PN.NEPH.PH ---
Today's Communication / Plan
-
Continue diuretics
Assessment/Plan
-
IMP:
Syncope likely vasovagal (patient was undergoing bowel prep for capsule endoscopy at the time)
Acute hypoxic respiratory insufficiency
Acute on chronic heart failure with preserved ejection fraction
Brigitte-baseline cr 1.1
Left clavicle fracture-sling in place
Lt 3rd thru 5th rib fractures
traumatic fractures, likely osteoporosis contributing
Chronic pleural effusions multiple thoracentesis this admit right 08/17 and 08/19
History of recurrent left-sided pleural effusion status post admission to [place] with VATS and pulmonary decortication 01/2024.
Ascites
Severe constipation
Ingested Capsule endoscopy [employer]LL[employer]ER has yet to pass
Peripheral artery disease
Chronic left foot ischemia
Left cephalic vein superficial thrombus
Anemia of chronic disease
chronic Hyponatremia
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
History of Takotsubo CM w/recovered EF (2005)
Paroxysmall atrial fibrillation
Prior PVI (2016)
s/p PFA 08/24/23
Hypothyroidism
Elevated troponin from nonischemic myocardial injury
Lung Nodule
Celiac disease
Moderate portal hypertensive gastropathy
PLan;
A/w syncope, noted acute CHF and left calvicular, rib fxs
BRIGITTE- UA with microhematuria, 2+alb on admit, prior UA was bland
no hydro on US 08/22, but limited study, bladder scan 160cc
repeat study 08/28 still limited , atrophic right kidney, left not seen well
h/o left nephrosis per pt as child (old US shows small left kidney 05/2024)
given BRIGITTE would want to hold any angiogram till cr stabilizes further , high risk of NOEL
severe hypoalbuminemia -U PCR -0.5, old UPEP neg, SPEP faint band but polyclonal, pending FLC
recurrent pleural effusion -thoracentesis x2 this admit
08/28 discussed dialysis with her though she would be high risk with high mortality rate at 6 [address].
08/30 Dr. Howe spoke with son in person and explained poor renal prognosis that she is not an ideal candidate for HD with frail status and further potential decrease in QOL if choses HD, she will remains at NH for fci.
she understands and will speak to rest of the family and come up with decision
Renal function and volume status improving
Continue diuretics
P.o. bicarbonate
Consider proceeding with angiogram in the next couple days
-
-
Date of Service: September 02, 2024
CC / HPI / ROS
-
Chief Complaint:
BRIGITTE with CKD
History of Present Illness:
cr improved
bp soft, wt no change
sodium improved
bicarb improved
Review of Systems: Mild shortness of breath with lower extremity leg pain.
no n/v
Labs
-
Labs:
WBC 8.6 10^3/uL (4.8-10.8) 09/02/24 04:49
RBC 3.01 10^6/uL (4.20-5.40) L 09/02/24 04:49
Hgb 10.0 g/dL (12.0-16.0) L 09/02/24 04:49
Hct 30.3 % (37.0-47.0) L 09/02/24 04:49
Plt Count 341 10^3/uL (130-400) 09/02/24 04:49
Sodium 132 mmol/L (135-145) L 09/02/24 04:49
Potassium 3.8 mmol/L (3.5-5.1) 09/02/24 04:49
Chloride 105 mmol/L (98-107) 09/02/24 04:49
Carbon Dioxide 21 mmol/L (22-30) L 09/02/24 04:49
BUN 66 mg/dl (7-17) H 09/02/24 04:49
Creatinine 1.7 mg/dL (0.6-1.0) H 09/02/24 04:49
eGFR 29.94 09/02/24 04:49
Glucose 103 mg/dl (70-99) H 09/02/24 04:49
Calcium 7.2 mg/dl (8.4-10.2) L 09/02/24 04:49
Phosphorus 3.3 mg/dl (2.5-4.5) 09/02/24 04:49
Eva-B-Pwthxxapaux Pept 75457 pg/ml 08/30/24 17:37
Albumin 1.7 g/dl (3.5-5.0) L 08/30/24 07:07
Physical Exam
-
Vital Signs:
Vital Signs
Temp Pulse Resp BP Pulse Ox
97.3 F 61 20 97/49 96
09/02/24 11:40 09/02/24 12:31 09/02/24 11:40 09/02/24 12:31 09/02/24 11:40
Cardiovascular:: Regular rate and rhythm
Respiratory:: Bilateral: Coarse
Lung Excursion:: Normal (decreased BS)
Abdomen:: Nontender and Soft
Bowel Sounds:: Normal
Extremity Edema:: +1: Bilateral:
Lee Catheter: No
[2024-09-02 13:45] LABS: ALT (SGPT) 11 U/L (0-35); AST (SGOT) 23 U/L (14-36); Albumin 2.2 g/dl (3.5-5.0); Alkaline Phosphatase 208 U/L (38-126); Total Protein 4.9 g/dl (6.3-8.2)
--- NOTE | 2024-09-02 14:19 | W.PN.CARDCBS ---
Today's Communication / Plan
-
Continue IV Bumex as blood pressure tolerates
Impression / Plan
-
PCP: Stella Sutherland PA-C
Grinding Wheel Operator: Dr. Kiera Diaz
Impression:
Admitted with fall, clavicle fracture and possible acute HF 08/15/24
Syncope
Fall and left clavicle fracture
Acute on chronic HFpEF
Recurrent pleural effusion
s/p Left Asept pleural catheter placement 11/29/23, removed after admission to [place] with VATS and pulmonary decortication 01/2024
Small to moderate B/L pleural effusions by CXR 08/15/2024
R thoracentesis 08/17/2024 for 1500 cc - no growth on culture, fluid studies suggestive of transudate
R thoracentesis 08/21/2024 1350cc clear yellow
ANNA
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
Hyponatremia
Paroxysmal atrial fibrillation
Prior PVI (2016)
s/p PFA 08/24/23
Tikosyn stopped during [facility] rehab stay 02/2024 and now on chronic amiodarone
recurrent afib 08/22/2024 and Amio increased to 200 mg bid
Chronic anticoagulation on Eliquis
Takotsubo CM w/recovered EF (2005)
Negative workup for cardiac amyloid
HLD
HTN
MR
Renal nephrosis
Lung Nodule (2021, stable)
Anemia
celiac dz
Echo 05/18/2023: EF 69%, stage II diastolic dysfunction. Moderately dilated right atrium. Mild to moderate MR. Mild TR. PAP 36 mmHg. Small pericardial effusion
Echo 11/25/2023: EF 55-60%, global longitudinal strain is -14.2, stage III diastolic dysfunction, mild MR, dilated left atrium, aortic sclerosis, normal RV, pulmonary artery systolic pressure 45-50 mmHg
Echo 08/16/2024: EF 60-65%, mild cLVH, stage II diastolic dysfunction, mild MR, severe TR, estimated PAP 70 mmHg, small to moderate pericardial effusion w/o evidence of hemodynamic compromise
Plan:
-Presented after fall/syncope in the setting of prepping for capsule endoscopy. Admitted with clavicle fracture. Also w/ acute HF and ANNA. Nephrology following and managing diuretics.
-Continues on IV Bumex 2mg BID as BP tolerates. ProBNP rechecked 08/30 and up to 10,900. Notes she feels about the same as yesterday from a breathing standpoint.
-Creat continues to improve, down to 1.7 on 09/02. Peaked at 2.2.
-Weight down to 137 lbs. Previously dry weight was felt to be 131 lbs 05/2024.
-Wean O2 as able.
-Hold parameters on diuretic reduced by primary service to allow for more frequent dosing. Could consider use of midodrine to allow BP room for diuresis if needed.
-Spironolactone on hold due to ANNA. Not chronically on NILAY/ARB/ARNI due to hypotension/CKD.
-Not on SGLT2 inhibitor due to h/o UTI.
-EF stable by echo this admission. Prior cardiac amyloid work up negative
-There is also concern for ischemia of left foot and is being considered for angiogram, however will attempt to stabilize renal function and volume status prior to completing. Not felt to be a good candidate for revascularization. Vascular surgery
following.
-She continues with A-fib/a flutter on review of telemetry. Heart rates are controlled. Continue amiodarone and metoprolol. Could consider for eventual AVJ as patient has pacemaker in place
-Continue Eliquis 2.5 mg twice daily
-Syncope on admission felt to be secondary to acute on chronic anemia, frequent defecation, and orthostasis
Discussed with family at bedside
HPI: Patient came to [facility] yesterday after fall and is now being mated with syncope, clavicle fracture and possible HFpEF with consultation to cardiology. Patient was seen in the office on 07/17/2024 and her proBNP was felt to be acceptable
although her weight was up to 136 lbs with her previous weight being 133 lbs, there were also moderate bilateral pleural effusions. Usual dose of torsemide 20 mg daily was continued and the patient was agreeable to referral for palliative care
assessment. eCW tasks was reviewed by me and patient was given 1 unit PRBCs on 08/02/2024 for Hgb of 7.7 and the Hgb only improved up to 8.2 so a second unit was given on 08/06/24. Remote device check 08/08/2024 had a 7-hour long atrial flutter episode
and patient was already on Eliquis, no other changes, but later that day patient called with weight gain and was told to take additional torsemide 20 mg for a total of 40 mg daily on 08/08/2024 and 08/09/2024 and although she lost 4 lbs she had ongoing
GILLIAM and fatigue. Then patient was preparing for a scheduled capsule endoscopy for her celiac disease by taking Miralax and after swallowing the capsule she felt disoriented, lost her sense of balance and had a fall. Patient was brought to [facility]
and admitted for syncope, clavicle fracture and possible acute on chronic HFpEF. Patient was given Lasix 40 mg IV x 1 in the ER. Her Cre on arrival was 1.0 and today is up to 1.4.
Progress Note - Grinding Wheel Operator
Subjective
Date of Service: September 02, 2024
NAOE. Resting comfortably in bed this AM. No cardiac complaints, but continues to have significant pain in the LLE.
Objective
Labs:
09/02/24 04:49
09/02/24 04:49
Labs
Hgb 10.0 g/dL (12.0-16.0) L 09/02/24 04:49
Hct 30.3 % (37.0-47.0) L 09/02/24 04:49
Plt Count 341 10^3/uL (130-400) 09/02/24 04:49
PT 24.9 Sec (11.4-14.6) H 08/30/24 07:07
INR 2.20 08/30/24 07:07
Sodium 132 mmol/L (135-145) L 09/02/24 04:49
Potassium 3.8 mmol/L (3.5-5.1) 09/02/24 04:49
BUN 66 mg/dl (7-17) H 09/02/24 04:49
Creatinine 1.7 mg/dL (0.6-1.0) H 09/02/24 04:49
Glucose 103 mg/dl (70-99) H 09/02/24 04:49
Vital Signs and I&O:
Vital Signs
Temp Pulse Resp BP Pulse Ox
97.3 F 61 20 97/49 96
09/02/24 11:40 09/02/24 12:31 09/02/24 11:40 09/02/24 12:31 09/02/24 11:40
Vital Signs
Temp Pulse Resp BP Pulse Ox
97.3 F 61 20 9749 96
09/02/24 11:40 09/02/24 12:31 09/02/24 11:40 09/02/24 12:31 09/02/24 11:40
Intake & Output
08/31/24 09/01/24 09/02/24 09/03/24
06:59 06:59 06:59 06:59
Intake Total 900 / 900 1620 / 1620 700 / 700
Balance 900 / 900 1620 / 1620 700 / 700
Physical Exam
Physical Exam
Gen: NAD, AAOx3
HEENT: NC/AT, sclera anicteric
Neck: No JVD
CV: RRR, NL s1/s2
Lungs: Scattered rhonchi on 2L NC
Abd: S/ND
Ext: 1+ RLE edema. LLE CDI.
Skin: Dry
Neuro: Non-focal
--- NOTE | 2024-09-02 16:56 | PTCARENOTE ---
Pt AAO x3, sl forgetful at times. LAST; has limited ROM LUE d/t arm sling; pt limits movement of LLE d/t discomfort in lower leg/foot. OOB to chair with assist x2, needs much encouragement to participate in OOB activity. VSS. Telemetry:A fib with
V-pacing. Pt with anasarca of trunk/thighs; +1 edema of lt mid-arm- encouraging pt to keep LUE elevated on pillow. Maintained on nc 1.5 lpm- pulse ox 100%; pt with (+) GILLIAM; refuses to wean nc- 'I need it'. Abd large, soft, arlen PO; appetite fair.
Voids large amts clear yellow urine on bedpan. Lt foot dsg D/I. Resting in chair at present. Will continue to monitor.
[2024-09-02] MEDS: BUMEX 2 MG IV (21:03)
[2024-09-02] MEDS: SENOKOT-S 2 TABLET PO (21:05)
[2024-09-02] MEDS: ASPIR LOW (ENTERIC COATED) 81 MG PO (21:06)
[2024-09-02] MEDS: REMOVE LIDOCAINE PATCH 2 PATCH REMOVE (21:06)
[2024-09-03] VITALS (8 sets, daily range): BP systolic 101–122; BP diastolic 51–63; O2SAT 99; BMI 22.0
[2024-09-03] MEDS: TYLENOL PO (02:02)
[2024-09-03] MEDS: TYLENOL 650 MG PO ×5 (04:25→20:50)
[2024-09-03] MEDS: SYNTHROID 150 MCG PO (04:26)
[2024-09-03] MEDS: ROXICODONE 7.5 MG PO ×2 (05:56→22:45)
[2024-09-03 08:10] LABS: Hematocrit 29.8 % (37.0-47.0); Hemoglobin 9.6 g/dL (12.0-16.0); Mean Corp Hgb Conc. 32.2 g/dL (33.0-37.0); Mean Corpuscular Volume 101.7 fL (81.0-99.0); Platelet Count 352 10^3/uL (130-400); Red Cell Dist. Width 20.3 % (11.5-14.5)
--- NOTE | 2024-09-03 08:32 | W.PN.HOSP.TC ---
Today's Communication/Plan
-
see bold
Assessment / Plan
Assessment / Plan
HPI: 79F hx pleural effusion HFpEF HTN afib ppm Celiac dz HLD pulm htn here for evaluation syncope with associate clavicle and rib fractures likely d/t fall. Syncope had occurred while taking bowel prep for capsule endoscopy. Patient endorsed
feeling lightheaded/dehydrated prior to event.
#Syncope likely vasovagal (patient was undergoing bowel prep for capsule endoscopy at the time)
Head CT negative
Unable to obtain orthostatic vital signs as patient has not been able to stand prolonged time for standing blood pressure d/t left lower ext pain as below
#Acute hypoxic respiratory insufficiency multifactorial rib fractures, atelectasis, heart failure, pleural effusions
#Left clavicle fracture-sling in place
#Lt 3rd thru 5th rib fractures Displaced
#Traumatic fractures, likely osteoporosis contributing
Thoracic Lumbar XR appreciated multilevel discogenic degenerative disease, small to mod b/l pleural effusions, acute interstitial/alveolar cardiogenic edema, large dense b/l lower lobe airspace consolidations most likely d/t atelectasis
Orthopedic eval appreciated conservative mgmt left clavicle fracture, arm sling, NWB LUE 4-6wks, follow up with orthopedic before advancing activity
Repeat Shoulder X-ray 08/30 appreciated comminuted and displaced fracture distal left clavicle radiographically stable
Intermittently requiring oxygen supplementation throughout hospitalization
Continue pain control, incentive spirometry. Pain regimen adjusted to oxycodone 7.5 mg q6hprn
Appreciate orthopedic surgery reevaluation on 09/03�[place] for left upper extremity weightbearing as tolerated
Continue scheduled Tylenol, Bengay-like cream, Gabapentin 100 mg TID added for possible neuropathic pain ('pins and needle' sensation Lower ext's) titrated up to 200 mg BID
# Chronic pleural effusions suspected multifactorial from partial hypoalbuminemia, deconditioning, possible malnutrition unclear severity
# Right pleural effusion status post thoracentesis on 05/23/2024 with symptomatic improvement in 1350 cc of fluid removed
# History of recurrent left-sided pleural effusion status post admission to [place] with VATS and pulmonary decortication 01/2024.
# Ascites
Status post right thoracentesis on 08/17, draining 1.5 L, cultures negative for growth, path negative for malignancy, shows inflammation
Status post right thoracentesis 08/19, draining 1.35 L
Pulm eval appreciated, repeat chest x-ray on Sunday 08/27 appreciated no significant re-accumulation pleural effusion
CXR 09/01 small to mod pleural effusion Rt, slight increase from previous, stable small left, bibasilar opacities possible atelectasis vs pna (most likely atelectasis)
Albumin boluses intermittently given when pressures run low systolic 90s 80s
Midodrine increased to 5 mg 3 times daily for hypotension
Continue Bumex 2 mg IV twice daily as per nephrology
# Acute on chronic heart failure with preserved ejection fraction
#ANNA
#Metabolic Acidosis
#Cardiorenal syndrome
Cardio and Nephro eval appreciated
Continue Bumex 2 mg IV twice daily as per nephrology
#Severe constipation
#Ingested Capsule endoscopy
Status post enema 08/21
Continue aggressive bowel regimen
Passed capsule endoscopy 08/26
Follow up GI for results
#Peripheral artery disease
#Cyanotic left foot
#Acute on Chronic left foot ischemia heel wound
Appreciate vascular surgery input, patient has chronic SFA stenosis
Vascular surgery eval appreciated eventual angiography with attempted left SFA angioplasty/stenting planned
Nephro recommends holding angiography at this time d/t ANNA as above
Continue wound care
#Left cephalic vein superficial thrombus
Supportive care
# Anemia of chronic disease
Hemoglobin dipped to 7.8
Status post 1 unit PRBC 08/18/24 with appropriate response, Hgb has remained stable since
Continue to monitor, transfuse as needed
#Hyponatremia
#Metabolic Acidosis
Fluid restrict, trend sodium
Samsca bicarb as per Nephro
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
#History of Takotsubo CM w/recovered EF (2005)
# Paroxysmal atrial fibrillation
# Prior PVI (2017)
# s/p PFA 08/24/23
-continue SK[employer]ED [employer] MANAGER eliquis 2.5 bid
-continue SK[employer]ED N[employer]SING CASE MANAGER metoprolol
-amiodarone 200 mg BID as per cardio
# Hypothyroidism
-Synthroid continued
-TFT appears to suggest Hypothyroidism uncontrolled, TSH elevated
-pt endorses compliance with synthroid and no recent changes in dose
-repeated TFT shows TSH significantly improved trending down
-cont current synthroid for now, outpt follow up with Endocrinology recommended
#Severe Vit D deficiency
Home Vit D supplementation increased to High Dose weekly supplement, cont
#Elevated troponin from nonischemic myocardial injury
#Lung Nodule
# Celiac disease
Gluten free diet
#Moderate portal hypertensive gastropathy
PT/OT appreciated SNF rehab
DVT PPX on Eliquis
Code status - full code
Patient with multiple comorbidities�seen by palliative care this admission, patient is not ready for hospice at this time
Disposition�short-term rehab at [facility] when stable
Total time spent to see the patient on the floor, examine the patient, review data and lab results, discuss treatment plan with patient, nursing staff around 51 minutes.
Physical Exam
General: Appears debilitated, no acute distress
HEENT: NormoCephalic, Moist mucous membranes and Atraumatic
Respiratory: Bibasilar crackles
Cardiac: S1/S2 and Regular Rhythm; No Murmur or Rub
GI: Soft, Non Tender, abd distended and Normal Bowel Sounds
Musculoskeletal: No Clubbing, Left arm with edema, Left arm in sling, +2 pitting edema LUE
Bilateral lower extremities edema +1
Left toes cyanotic appearance, left foot cool to touch, colder in comparison to right foot
Neuro: AO x3 conversant coherent
Psych: Calm
Anticipated Discharge: 24 - 48 hours
Subjective/Interval History
-
Date of Service: September 03, 2024
Patient reports improvement in her left rib pain, left clavicle pain. Her shortness of breath is improved. She feels weak. She is having bowel movements. No fever, no vomiting.
Objective Data
-
Labs:
Laboratory Results
09/03/24
07:53
WBC 8.9
Hgb 9.6 L
Hct 29.8 L
Plt Count 352
Sodium Pending
Potassium Pending
Chloride Pending
Carbon Dioxide Pending
BUN Pending
Creatinine Pending
Glucose Pending
Calcium Pending
Vital Signs:
Vital Signs
Temp Pulse Resp BP Pulse Ox
97.7 F 67 20 104/57 96
09/03/24 03:34 09/03/24 03:34 09/03/24 03:34 09/03/24 03:34 09/03/24 03:34
I&O
09/02/24 09/03/24 09/04/24
06:59 06:59 06:59
Intake Total 700 / 700 780 / 780
Output Total 325 / 325
Balance 700 / 700 455 / 455
[2024-09-03 08:47] LABS: Blood Urea Nitrogen 65 mg/dl (7-17); Calcium 7.6 mg/dl (8.4-10.2); Carbon Dioxide 25 mmol/L (22-30); Chloride 103 mmol/L (98-107); Estimated Creatinine Clearance 26 ml/min; Glucose 89 mg/dl (70-99); Magnesium 1.8 mg/dl (1.6-2.3); Potassium 3.7 mmol/L (3.5-5.1); Sodium 131 mmol/L (135-145); eGFR 32.20
[2024-09-03] MEDS: LIDOCAINE 4% PATCH 2 PATCH TOPICAL (09:04)
[2024-09-03] MEDS: SENOKOT-S 2 TABLET PO ×2 (09:07→20:54)
[2024-09-03] MEDS: VITAMIN B-12 1000 MCG PO (09:07)
[2024-09-03] MEDS: ZETIA 10 MG PO (09:08)
[2024-09-03] MEDS: NEURONTIN 200 MG PO ×2 (09:08→20:50)
[2024-09-03] MEDS: VITAMIN C 1000 MG PO (09:08)
[2024-09-03] MEDS: SODIUM BICARBONATE 1300 MG PO ×2 (09:09→20:55)
[2024-09-03] MEDS: PACERONE 200 MG PO ×2 (09:09→20:50)
[2024-09-03] MEDS: OSCAL CAL 500 500 MG PO ×2 (09:10→20:49)
[2024-09-03] MEDS: KCL 20 MEQ PO (09:11)
[2024-09-03] MEDS: TOPROL XL 25 MG PO (09:11)
[2024-09-03] MEDS: ELIQUIS 2.5 MG PO ×2 (09:11→20:50)
[2024-09-03] MEDS: BenGay-Like 1 APPLIC TOPICAL ×4 (09:13→21:11)
[2024-09-03] MEDS: MIRALAX 17 GRAMS PO ×2 (09:15→20:54)
[2024-09-03] MEDS: BUMEX 2 MG IV ×2 (09:15→20:49)
[2024-09-03] MEDS: LIPITOR 10 MG PO (09:22)
[2024-09-03] MEDS: HYDROPHOR 1 APPLIC TOPICAL ×2 (09:23→21:10)
--- NOTE | 2024-09-03 09:42 | CM ---
Nephrology involved .Pt may need HD in future but Cr improving.
Pt requiring pain med prn.
Family visits.
PT recommends SNF Pt requests [facility].
Please check with [facility] on [facility] for a bed availability.
Pt is not interested in Hospice nor Palliative care.
[facility]
report [phone]
fax [phone]
PLAN To [facility] at dc -check for bed availability .
--- NOTE | 2024-09-03 10:59 | W.PN.NEPH.PH ---
Today's Communication / Plan
-
diurese
Assessment/Plan
-
IMP:
Syncope likely vasovagal (patient was undergoing bowel prep for capsule endoscopy at the time)
Acute hypoxic respiratory insufficiency
Acute on chronic heart failure with preserved ejection fraction
Brigitte-baseline cr 1.1
Left clavicle fracture-sling in place
Lt 3rd thru 5th rib fractures
traumatic fractures, likely osteoporosis contributing
Chronic pleural effusions multiple thoracentesis this admit right 08/17 and 08/19
History of recurrent left-sided pleural effusion status post admission to [place] with VATS and pulmonary decortication 01/2024.
Ascites
Severe constipation
Ingested Capsule endoscopy FACILITIES LOCATOR has yet to pass
Peripheral artery disease
Chronic left foot ischemia
Left cephalic vein superficial thrombus
Anemia of chronic disease
chronic Hyponatremia
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
History of Takotsubo CM w/recovered EF (2005)
Paroxysmall atrial fibrillation
Prior PVI (2016)
s/p PFA 08/24/23
Hypothyroidism
Elevated troponin from nonischemic myocardial injury
Lung Nodule
Celiac disease
Moderate portal hypertensive gastropathy
Plan:
continue IV Bumex
goal diuresis is another 10#...
continue midodrine for hypotension
nonnephrotic proteinuria, edema likely cardiac in nature
she states that her appetite is excellent and that she eats 3 meals a day. however, her labs and edema and weight disparity suggest she is losing body mass over time.
follow BMP
angiogram LE could probably be done at this time as I suspect that there will not be a more optimal time going forward.
08/30 Dr. Howe spoke with son in person and explained poor renal prognosis that she is not an ideal candidate for HD with frail status and further potential decrease in QOL if choses HD, she will remains at [facility] for [facility].
she understands and will speak to rest of the family and come up with decision
-
-
Date of Service: September 03, 2024
CC / HPI / ROS
-
Chief Complaint:
BRIGITTE with CKD
History of Present Illness:
BRIGITTE/Cr stable 1.6
bp soft, wt no change
sodium low stable 131
bicarb normal
Hgb down to 9.6
Review of Systems:
LH with standing
no CP
SOB after taking morning meds
Labs
-
Labs:
WBC 8.9 10^3/uL (4.8-10.8) 09/03/24 07:53
RBC 2.93 10^6/uL (4.20-5.40) L 09/03/24 07:53
Hgb 9.6 g/dL (12.0-16.0) L 09/03/24 07:53
Hct 29.8 % (37.0-47.0) L 09/03/24 07:53
Plt Count 352 10^3/uL (130-400) 09/03/24 07:53
Sodium 131 mmol/L (135-145) L 09/03/24 07:53
Potassium 3.7 mmol/L (3.5-5.1) 09/03/24 07:53
Chloride 103 mmol/L (98-107) 09/03/24 07:53
Carbon Dioxide 25 mmol/L (22-30) 09/03/24 07:53
BUN 65 mg/dl (7-17) H 09/03/24 07:53
Creatinine 1.6 mg/dL (0.6-1.0) H 09/03/24 07:53
eGFR 32.20 09/03/24 07:53
Glucose 89 mg/dl (70-99) 09/03/24 07:53
Calcium 7.6 mg/dl (8.4-10.2) L 09/03/24 07:53
Phosphorus 3.4 mg/dl (2.5-4.5) 09/03/24 07:53
Gmy-S-Jktpwaiksrt Pept 03091 pg/ml 08/30/24 17:37
Albumin 2.2 g/dl (3.5-5.0) L 09/02/24 04:49
Physical Exam
-
Vital Signs:
Vital Signs
Temp Pulse Resp BP Pulse Ox
97.4 F 64 18 112/63 98
09/03/24 07:10 09/03/24 09:11 09/03/24 07:10 09/03/24 09:11 09/03/24 07:10
Cardiovascular:: Regular rate and rhythm
Respiratory:: Bilateral: Coarse
Lung Excursion:: Normal
Abdomen:: Nontender and Soft
Bowel Sounds:: Normal
Extremity Edema:: +3: Bilateral: (thigh)
--- NOTE | 2024-09-03 11:04 | W.PN.CARDCBS ---
Addendum entered and electronically signed by Menodza Perera MD 09/03/24 11:26:
I saw and examined the patient.
The HAND THERMAL CUTTER or PA's note was reviewed and I agree with the note.
Comment: General: Appears chronically ill
Neck: Supple, no JVD, HJR, carotids +2 B/L, no bruits bilaterally.
Heart: Non displaced PMI, RRR, no murmurs, No S3, S4, no rubs.
Lungs: Scattered rhonchi
Abdomen: Normal bowel sounds, soft, non-tender, non-distended.
Extremities: No clubbing, cyanosis or edema bilaterally.
Neuro: Grossly nonfocal, awake, alert and oriented x3.
Renal function improved slight with creatinine of 1.6. Weight has gone down 1 pound. Very difficult volume status with diuretics being managed by nephrology. Likely will need alf facility placement. Continue diuresis.
Original Note:
Today's Communication / Plan
-
Continue diuresis
Impression / Plan
-
PCP: Stella Sutherland PA-C
Technician Plant And Maintenance: Dr. Kiera Diaz
Impression:
Admitted with fall, clavicle fracture and possible acute HF 08/15/24
Syncope
Fall and left clavicle fracture
Acute on chronic HFpEF
Recurrent pleural effusion
s/p Left Asept pleural catheter placement 11/29/23, removed after admission to [facility] with VATS and pulmonary decortication 01/2024
Small to moderate B/L pleural effusions by CXR 08/15/2024
R thoracentesis 08/17/2024 for 1500 cc - no growth on culture, fluid studies suggestive of transudate
R thoracentesis 08/21/2024 1350cc clear yellow
ANNA
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
Hyponatremia
Paroxysmal atrial fibrillation
Prior PVI (2016)
s/p PFA 08/24/23
Tikosyn stopped during [facility] rehab stay 02/2024 and now on chronic amiodarone
recurrent afib 08/22/2024 and Amio increased to 200 mg bid
Chronic anticoagulation on Eliquis
Takotsubo CM w/recovered EF (2005)
Negative workup for cardiac amyloid
HLD
HTN
MR
Renal nephrosis
Lung Nodule (2021, stable)
Anemia
celiac dz
Echo 05/18/2023: EF 69%, stage II diastolic dysfunction. Moderately dilated right atrium. Mild to moderate MR. Mild TR. PAP 36 mmHg. Small pericardial effusion
Echo 11/25/2023: EF 55-60%, global longitudinal strain is -14.2, stage III diastolic dysfunction, mild MR, dilated left atrium, aortic sclerosis, normal RV, pulmonary artery systolic pressure 45-50 mmHg
Echo 08/16/2024: EF 60-65%, mild cLVH, stage II diastolic dysfunction, mild MR, severe TR, estimated PAP 70 mmHg, small to moderate pericardial effusion w/o evidence of hemodynamic compromise
Plan:
-Presented after fall/syncope in the setting of prepping for capsule endoscopy. Admitted with clavicle fracture. Also w/ acute HF and ANNA. Nephrology following and managing diuretics.
-Diuresing as BP allows w/ IV Bumex 2mg BID. Continues to feel about the same from a breathing standpoint.
-Creat improving, down to 1.6 on 09/03. Peaked at 2.2
-Weight slowly downtrending, down to 136 lbs on 09/03. Dry weight previously felt to be 131 lbs 05/2024.
-Spironolactone on hold due to ANNA. Not chronically on NILAY/ARB/ARNI due to hypotension/CKD.
-Not on SGLT2 inhibitor due to h/o UTI.
-EF stable by echo this admission. Prior cardiac amyloid work up negative
-There is also concern for ischemia of left foot and is being considered for angiogram, however attempting to stabilize renal function and volume status prior to completing. Not felt to be a good candidate for revascularization. Vascular surgery
following.
-She continues with A-fib/a flutter on review of telemetry. Heart rates are controlled. Continue amiodarone and metoprolol. Could consider for eventual AVJ as patient has pacemaker in place
-Continue Eliquis 2.5 mg twice daily
-Syncope on admission felt to be secondary to acute on chronic anemia, frequent defecation, and orthostasis
-Wean O2 as able.
HPI: Patient came to [facility] ER yesterday after fall and is now being mated with syncope, clavicle fracture and possible HFpEF with consultation to cardiology. Patient was seen in the office on 07/17/2024 and her proBNP was felt to be acceptable
although her weight was up to 136 lbs with her previous weight being 133 lbs, there were also moderate bilateral pleural effusions. Usual dose of torsemide 20 mg daily was continued and the patient was agreeable to referral for palliative care
assessment. eCW tasks was reviewed by me and patient was given 1 unit PRBCs on 08/02/2024 for Hgb of 7.7 and the Hgb only improved up to 8.2 so a second unit was given on 08/06/24. Remote device check 08/08/2024 had a 7-hour long atrial flutter episode
and patient was already on Eliquis, no other changes, but later that day patient called with weight gain and was told to take additional torsemide 20 mg for a total of 40 mg daily on 08/08/2024 and 08/09/2024 and although she lost 4 lbs she had ongoing
GILLIAM and fatigue. Then patient was preparing for a scheduled capsule endoscopy for her celiac disease by taking Miralax and after swallowing the capsule she felt disoriented, lost her sense of balance and had a fall. Patient was brought to [facility] ER
and admitted for syncope, clavicle fracture and possible acute on chronic HFpEF. Patient was given Lasix 40 mg IV x 1 in the ER. Her Cre on arrival was 1.0 and today is up to 1.4.
Progress Note - Technician Plant And Maintenance
Subjective
Date of Service: September 03, 2024
Feels about the same. Notes her leg discomfort is her biggest issue.
Objective
Labs:
09/03/24 07:53
09/03/24 07:53
Labs
Hgb 9.6 g/dL (12.0-16.0) L 09/03/24 07:53
Hct 29.8 % (37.0-47.0) L 09/03/24 07:53
Plt Count 352 10^3/uL (130-400) 09/03/24 07:53
PT 24.9 Sec (11.4-14.6) H 08/30/24 07:07
INR 2.20 08/30/24 07:07
Sodium 131 mmol/L (135-145) L 09/03/24 07:53
Potassium 3.7 mmol/L (3.5-5.1) 09/03/24 07:53
BUN 65 mg/dl (7-17) H 09/03/24 07:53
Creatinine 1.6 mg/dL (0.6-1.0) H 09/03/24 07:53
Glucose 89 mg/dl (70-99) 09/03/24 07:53
Vital Signs and I&O:
Vital Signs
Temp Pulse Resp BP Pulse Ox
97.4 F 64 18 112/63 98
09/03/24 07:10 09/03/24 09:11 09/03/24 07:10 09/03/24 09:11 09/03/24 07:10
Vital Signs
Temp Pulse Resp BP Pulse Ox
97.4 F 64 18 112/63 98
09/03/24 07:10 09/03/24 09:11 09/03/24 07:10 09/03/24 09:11 09/03/24 07:10
Intake & Output
09/01/24 09/02/24 09/03/24 09/04/24
06:59 06:59 06:59 06:59
Intake Total 1620 / 1620 700 / 700 780 / 780
Output Total 325 / 325
Balance 1620 / 1620 700 / 700 455 / 455
Physical Exam
Physical Exam
GEN: No distress, awake, alert, oriented x3
HEENT: supple, anicteric, mmm
LUNGS: scattered rhonchi
CV: Reg, S1/S2, no murmur
EXT: +1 LE edema
NEURO: Gross non-focal
SKIN: Warm, dry
--- NOTE | 2024-09-03 13:04 | W.PN.UPDATE ---
Update Note
Progress Note Update
Patient seen and examined. Left shoulder with deformity about the distal clavicle as expected. In sling. NVI distally. Swelling about the left elbow as expected. Nontender ROM of the left elbow. Nontender about the left clavicle. Allows for
PROM of left shoulder. Recommend discontinuing left sling. PT for ROM of the left shoulder and elbow. May be WBAT LUE.
[2024-09-03] MEDS: DUPHALAC/CHRONULAC 20 GRAMS PO (13:24)
[2024-09-03] MEDS: SANTYL OINTMENT TOPICAL (17:01)
--- NOTE | 2024-09-03 19:18 | PTCARENOTE ---
Patient refused LLE would care today. Approached multiple times.
--- NOTE | 2024-09-03 19:33 | W.PN.UPDATE ---
Update Note
Progress Note Update
Patient seen and examined
Discussed plan with patient and granddaughter at bedside
She has a superficial left heel ulcer. Dusky appearance of toes has significantly improved by report.
Slowly recovering from acute on chronic heart failure, fall with clavicle fracture, acute kidney injury
She is very frail and not an ideal surgical candidate
Options were presented to her and her granddaughter:
-Left lower extremity arteriogram with possible endovascular intervention on this admission. Technical aspects of this procedure were discussed with him in detail. Benefits and rationale for this approach were discussed with them in detail.
Operative risks were discussed with them in detail including but not limited to access site injury, worsening kidney function, need for dialysis, distal embolization, inability to successfully complete endovascular intervention, worsening heart
failure from IV hydration for renal protection and limb loss. I explained that the wound is superficial and there appears to be no active infection.
-Local wound care, pressure offloading and short interval outpatient follow-up. Benefits and rationale for this approach were discussed with them in detail. Explained that the primary benefit here would be to focus on recovery from her other
active medical problems and avoid surgical intervention right now with the associated risks. Explained that we could always perform arteriogram if necessary in the future.
She would like to discuss her options with her family and she will let us know her decision tomorrow
Call with questions or concerns
Jeremy Lee III, MD
Vascular Surgery
[facility]
[2024-09-03] MEDS: REMOVE LIDOCAINE PATCH 2 PATCH REMOVE (21:11)
[2024-09-03] MEDS: ASPIR LOW (ENTERIC COATED) 81 MG PO (21:12)
[2024-09-04] VITALS (15 sets, daily range): BP systolic 71–126; BP diastolic 36–67; BMI 22.5
[2024-09-04] MEDS: TYLENOL PO (01:31)
[2024-09-04] MEDS: TYLENOL 650 MG PO ×5 (03:13→19:43)
[2024-09-04] MEDS: ROXICODONE 7.5 MG PO ×2 (05:39→12:07)
[2024-09-04] MEDS: SYNTHROID 150 MCG PO (05:39)
[2024-09-04 08:14] LABS: Hematocrit 30.7 % (37.0-47.0); Hemoglobin 10.2 g/dL (12.0-16.0); Mean Corp Hgb Conc. 33.2 g/dL (33.0-37.0); Mean Corpuscular Volume 100.0 fL (81.0-99.0); Platelet Count 366 10^3/uL (130-400); Red Cell Dist. Width 20.3 % (11.5-14.5)
[2024-09-04] MEDS: LIDOCAINE 4% PATCH 2 PATCH TOPICAL (09:07)
[2024-09-04 09:09] LABS: Blood Urea Nitrogen 65 mg/dl (7-17); Calcium 7.3 mg/dl (8.4-10.2); Carbon Dioxide 24 mmol/L (22-30); Chloride 104 mmol/L (98-107); Estimated Creatinine Clearance 28 ml/min; Glucose 79 mg/dl (70-99); Potassium 4.9 mmol/L (3.5-5.1); Sodium 130 mmol/L (135-145); eGFR 34.79
[2024-09-04] MEDS: BenGay-Like 1 APPLIC TOPICAL ×2 (09:09→12:06)
[2024-09-04] MEDS: SANTYL OINTMENT 1 APPLIC TOPICAL (09:09)
[2024-09-04] MEDS: SENOKOT-S 2 TABLET PO ×2 (09:10→21:18)
[2024-09-04] MEDS: ZETIA 10 MG PO (09:10)
[2024-09-04] MEDS: BUMEX 2 MG IV (09:10)
[2024-09-04] MEDS: VITAMIN C 1000 MG PO (09:11)
[2024-09-04] MEDS: SODIUM BICARBONATE 1300 MG PO ×2 (09:12→21:18)
[2024-09-04] MEDS: VITAMIN B-12 1000 MCG PO (09:12)
[2024-09-04] MEDS: OSCAL CAL 500 500 MG PO ×2 (09:12→21:19)
[2024-09-04] MEDS: TOPROL XL 25 MG PO (09:12)
[2024-09-04] MEDS: KCL 20 MEQ PO (09:12)
[2024-09-04] MEDS: PACERONE 200 MG PO (09:13)
[2024-09-04] MEDS: NEURONTIN 200 MG PO ×2 (09:13→21:19)
[2024-09-04] MEDS: HYDROPHOR 1 APPLIC TOPICAL ×2 (09:14→21:19)
[2024-09-04] MEDS: ELIQUIS 2.5 MG PO ×2 (09:14→21:19)
[2024-09-04] MEDS: MIRALAX 17 GRAMS PO ×2 (09:14→21:19)
[2024-09-04] MEDS: AYR SALINE NASAL GEL 1 APPLIC NASAL (09:15)
[2024-09-04] MEDS: FLUSH (NSS) 1 FLUSH IV (09:15)
--- NOTE | 2024-09-04 09:28 | W.PN.HOSP.TC ---
Today's Communication/Plan
-
Offload bilateral heels
Continue IV diuresis
Check chest ultrasound
Assessment / Plan
Assessment / Plan
HPI: 79F hx pleural effusion HFpEF HTN afib ppm Celiac dz HLD pulm htn here for evaluation syncope with associate clavicle and rib fractures likely d/t fall. Syncope had occurred while taking bowel prep for capsule endoscopy. Patient endorsed
feeling lightheaded/dehydrated prior to event.
# Chronic pleural effusions suspected multifactorial from partial hypoalbuminemia, deconditioning, possible malnutrition unclear severity
# Right pleural effusion status post thoracentesis on 05/23/2024 with symptomatic improvement in 1350 cc of fluid removed
# History of recurrent left-sided pleural effusion status post admission to [place] with VATS and pulmonary decortication 01/2024.
# Ascites
Status post right thoracentesis on 08/17, draining 1.5 L, cultures negative for growth, path negative for malignancy, shows inflammation
Status post right thoracentesis 08/19, draining 1.35 L
Pulm eval appreciated, repeat chest x-ray on Sunday 08/27 appreciated no significant re-accumulation pleural effusion
CXR 09/01 small to mod pleural effusion Rt, slight increase from previous, stable small left, bibasilar opacities possible atelectasis vs pna (most likely atelectasis)
Albumin boluses intermittently given when pressures run low systolic 90s 80s
Midodrine increased to 5 mg 3 times daily for hypotension
Continue Bumex 2 mg IV twice daily as per nephrology
# Acute on chronic heart failure with preserved ejection fraction
#ANNA
#Metabolic Acidosis
#Cardiorenal syndrome
Cardio and Nephro eval appreciated
Continue Bumex 2 mg IV twice daily as per nephrology
#Peripheral artery disease
#Cyanotic left foot
#Acute on Chronic left foot ischemia heel wound
#Right heel pressure wound
Appreciate vascular surgery input, patient has chronic SFA stenosis
Appreciate vascular surgery input, eventual angiography with attempted left SFA angioplasty/stenting planned
Nephrology states that left lower extremity angiogram could be done at this time, as there will not be a more optimal time going forward
However, there is a risk for worsening kidney function and end-stage renal disease
Continue wound care
#Syncope likely vasovagal (patient was undergoing bowel prep for capsule endoscopy at the time)
This was her presenting symptom to the ER. Head CT negative
Unable to obtain orthostatic vital signs as patient has not been able to stand prolonged time for standing blood pressure d/t left lower ext pain as below
#Acute hypoxic respiratory insufficiency multifactorial rib fractures, atelectasis, heart failure, pleural effusions
#Left clavicle fracture-sling in place
#Lt 3rd thru 5th rib fractures Displaced
#Traumatic fractures, likely osteoporosis contributing
Thoracic Lumbar XR appreciated multilevel discogenic degenerative disease, small to mod b/l pleural effusions, acute interstitial/alveolar cardiogenic edema, large dense b/l lower lobe airspace consolidations most likely d/t atelectasis
Orthopedic eval appreciated conservative mgmt left clavicle fracture, arm sling, NWB LUE 4-6wks, follow up with orthopedic before advancing activity
Repeat Shoulder X-ray 08/30 appreciated comminuted and displaced fracture distal left clavicle radiographically stable
Intermittently requiring oxygen supplementation throughout hospitalization
Continue pain control, incentive spirometry. Pain regimen adjusted to oxycodone 7.5 mg q6hprn
Appreciate orthopedic surgery reevaluation on 09/03�oka for left upper extremity weightbearing as tolerated
Continue scheduled Tylenol, Bengay-like cream, Gabapentin 100 mg TID added for possible neuropathic pain ('pins and needle' sensation Lower ext's) titrated up to 200 mg BID
#Severe constipation
#Ingested Capsule endoscopy
Status post enema 08/21
Continue aggressive bowel regimen
Passed capsule endoscopy 08/26
Follow up GI for results
#Left cephalic vein superficial thrombus
Supportive care
# Anemia of chronic disease
Hemoglobin dipped to 7.8
Status post 1 unit PRBC 08/18/24 with appropriate response, Hgb has remained stable since
Continue to monitor, transfuse as needed
#Hyponatremia
#Metabolic Acidosis
Fluid restrict, trend sodium
Samsca bicarb as per Nephro
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
#History of Takotsubo CM w/recovered EF (2005)
# Paroxysmal atrial fibrillation
# Prior PVI (2016)
# s/p PFA 08/24/23
-continue AURICULOTHERAPIST eliquis 2.5 bid
-continue AURICULOTHERAPIST metoprolol
-amiodarone 200 mg BID as per cardio
# Hypothyroidism
-Synthroid continued
-TFT appears to suggest Hypothyroidism uncontrolled, TSH elevated
-pt endorses compliance with synthroid and no recent changes in dose
-repeated TFT shows TSH significantly improved trending down
-cont current synthroid for now, outpt follow up with Endocrinology recommended
#Severe Vit D deficiency
Home Vit D supplementation increased to High Dose weekly supplement, cont
#Elevated troponin from nonischemic myocardial injury
#Lung Nodule
# Celiac disease
Gluten free diet
#Moderate portal hypertensive gastropathy
PT/OT appreciated SNF rehab
DVT PPX on Eliquis
Code status - full code
Patient with multiple comorbidities�seen by palliative care this admission, patient is not ready for hospice at this time
Disposition�short-term rehab at [facility] when stable
Total time spent to see the patient on the floor, examine the patient, review data and lab results, discuss treatment plan with patient, nursing staff around 52 minutes.
Physical Exam
General: Appears debilitated, no acute distress
HEENT: NormoCephalic, Moist mucous membranes and Atraumatic
Respiratory: Bibasilar crackles
Cardiac: S1/S2 and Regular Rhythm; No Murmur or Rub
GI: Soft, Non Tender, abd distended and Normal Bowel Sounds
Musculoskeletal: No Clubbing, Left arm with edema, Left arm in sling, +2 pitting edema LUE
Bilateral lower extremities edema +1
Left toes cyanotic appearance, left foot cool to touch, colder in comparison to right foot
Left heel with eschar
Neuro: AO x3 conversant coherent
Psych: Calm
Anticipated Discharge: > 48 hours
Subjective/Interval History
-
Date of Service: September 04, 2024
Patient complained of worsening bilateral ankle pain, states her ankles hurt more than her left clavicle and left rib pain. Reports her shortness of breath is worse today. No fever, no vomiting.
Objective Data
-
Labs:
Laboratory Results
09/04/24
07:57
WBC 7.9
Hgb 10.2 L
Hct 30.7 L
Plt Count 366
Sodium 130 L
Potassium 4.9 D
Chloride 104
Carbon Dioxide 24
BUN 65 H
Creatinine 1.5 H
Glucose 79
Calcium 7.3 L
Vital Signs:
Vital Signs
Temp Pulse Resp BP Pulse Ox
97.3 F 62 18 102/53 100
09/04/24 07:20 09/04/24 09:13 09/04/24 07:20 09/04/24 09:13 09/04/24 07:20
I&O
09/03/24 09/04/24 09/05/24
06:59 06:59 06:59
Intake Total 780 / 780 1020 / 1020
Output Total 325 / 325
Balance 455 / 455 1020 / 1020
--- NOTE | 2024-09-04 09:43 | W.PN.CARDCBS ---
Addendum entered and electronically signed by Mikhail Clemente DO 09/04/24 14:40:
I saw and examined the patient.
The Shooter Helper's note was reviewed and I agree with the note.
Comment:
Plan:
Continue IV Lasix diuresis as per nephrology.
Creatinine continues to improve
Wean O2 as able
Vascular surgery ongoing discussion with family, family currently opts for nonoperative management for now with consideration in the future for lower extremity arteriogram.
Discussed with granddaughter at bedside.
Original Note:
Today's Communication / Plan
-
diuresis per nephrology
wean supp O2 as able
vascular surgery following for LE ischemia. continue eliquis
will follow peripherally
Impression / Plan
-
PCP: Stella Sutherland PA-C
Health Science Instructor: Dr. Kiera Diaz
Impression:
Admitted with fall, clavicle fracture and possible acute HF 08/15/24
Syncope
Fall and left clavicle fracture
Acute on chronic HFpEF
Recurrent pleural effusion
s/p Left Asept pleural catheter placement 11/29/23, removed after admission to [place] with VATS and pulmonary decortication 01/2024
Small to moderate B/L pleural effusions by CXR 08/15/2024
R thoracentesis 08/17/2024 for 1500 cc - no growth on culture, fluid studies suggestive of transudate
R thoracentesis 08/21/2024 1350cc clear yellow
ANNA
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
Hyponatremia
Paroxysmal atrial fibrillation
Prior PVI (2016)
s/p PFA 08/24/23
Tikosyn stopped during [facility] rehab stay 02/2024 and now on chronic amiodarone
recurrent afib 08/22/2024 and Amio increased to 200 mg bid
Chronic anticoagulation on Eliquis
Takotsubo CM w/recovered EF (2005)
Negative workup for cardiac amyloid
HLD
HTN
MR
Renal nephrosis
Lung Nodule (2021, stable)
Anemia
celiac dz
Echo 05/18/2023: EF 69%, stage II diastolic dysfunction. Moderately dilated right atrium. Mild to moderate MR. Mild TR. PAP 36 mmHg. Small pericardial effusion
Echo 11/25/2023: EF 55-60%, global longitudinal strain is -14.2, stage III diastolic dysfunction, mild MR, dilated left atrium, aortic sclerosis, normal RV, pulmonary artery systolic pressure 45-50 mmHg
Echo 08/16/2024: EF 60-65%, mild cLVH, stage II diastolic dysfunction, mild MR, severe TR, estimated PAP 70 mmHg, small to moderate pericardial effusion w/o evidence of hemodynamic compromise
Plan:
-Presented after fall/syncope in the setting of prepping for capsule endoscopy. Admitted with clavicle fracture. Also w/ acute HF and ANNA. Nephrology following and managing diuretics.
-Diuresing as BP allows w/ IV Bumex 2mg BID. she reports she continues with SOB at times
-Cr improving, down to 1.5 on 09/04. Peaked at 2.2. Suspect weight this morning is inaccurate as up from yesterday. Dry weight previously felt to be 131 lbs 05/2024.
-Wean O2 as able
-Spironolactone on hold due to ANNA. Not chronically on NILAY/ARB/ARNI due to hypotension/CKD.
-Not on SGLT2 inhibitor due to h/o UTI.
-EF stable by echo this admission. Prior cardiac amyloid work up negative
-There is also concern for ischemia of left foot and is being considered for angiogram, however attempting to stabilize renal function and volume status prior to completing. Not felt to be a good candidate for revascularization. She also reports
fingers B/L are dusky this AM. Vascular surgery following.
-she appears to be back in SR on review of tele, occasional apacing. Heart rates are controlled. Continue amiodarone and metoprolol. Could consider for eventual AVJ as patient has pacemaker in place
-Continue Eliquis 2.5 mg twice daily
-Syncope on admission felt to be secondary to acute on chronic anemia, frequent defecation, and orthostasis
-will follow peripherally
-d/w nursing
HPI: Patient came to [facility] ER yesterday after fall and is now being mated with syncope, clavicle fracture and possible HFpEF with consultation to cardiology. Patient was seen in the office on 07/17/2024 and her proBNP was felt to be acceptable
although her weight was up to 136 lbs with her previous weight being 133 lbs, there were also moderate bilateral pleural effusions. Usual dose of torsemide 20 mg daily was continued and the patient was agreeable to referral for palliative care
assessment. eCW tasks was reviewed by me and patient was given 1 unit PRBCs on 08/02/2024 for Hgb of 7.7 and the Hgb only improved up to 8.2 so a second unit was given on 08/06/24. Remote device check 08/08/2024 had a 7-hour long atrial flutter episode
and patient was already on Eliquis, no other changes, but later that day patient called with weight gain and was told to take additional torsemide 20 mg for a total of 40 mg daily on 08/08/2024 and 08/09/2024 and although she lost 4 lbs she had ongoing
GILLIAM and fatigue. Then patient was preparing for a scheduled capsule endoscopy for her celiac disease by taking Miralax and after swallowing the capsule she felt disoriented, lost her sense of balance and had a fall. Patient was brought to [facility] ER
and admitted for syncope, clavicle fracture and possible acute on chronic HFpEF. Patient was given Lasix 40 mg IV x 1 in the ER. Her Cre on arrival was 1.0 and today is up to 1.4.
Progress Note - Health Science Instructor
Subjective
Date of Service: September 04, 2024
reports continues with some SOB
Objective
Labs:
09/04/24 07:57
09/04/24 07:57
Labs
Hgb 10.2 g/dL (12.0-16.0) L 09/04/24 07:57
Hct 30.7 % (37.0-47.0) L 09/04/24 07:57
Plt Count 366 10^3/uL (130-400) 09/04/24 07:57
PT 24.9 Sec (11.4-14.6) H 08/30/24 07:07
INR 2.20 08/30/24 07:07
Sodium 130 mmol/L (135-145) L 09/04/24 07:57
Potassium 4.9 mmol/L (3.5-5.1) D 09/04/24 07:57
BUN 65 mg/dl (7-17) H 09/04/24 07:57
Creatinine 1.5 mg/dL (0.6-1.0) H 09/04/24 07:57
Glucose 79 mg/dl (70-99) 09/04/24 07:57
Vital Signs and I&O:
Vital Signs
Temp Pulse Resp BP Pulse Ox
97.3 F 62 18 102/53 100
09/04/24 07:20 09/04/24 09:13 09/04/24 07:20 09/04/24 09:13 09/04/24 07:20
Vital Signs
Temp Pulse Resp BP Pulse Ox
97.3 F 62 18 102/53 100
09/04/24 07:20 09/04/24 09:13 09/04/24 07:20 09/04/24 09:13 09/04/24 07:20
Intake & Output
09/02/24 09/03/24 09/04/24 09/05/24
07:59 07:59 07:59 07:59
Intake Total 700 / 700 780 / 780 1020 / 1020
Output Total 325 / 325
Balance 700 / 700 455 / 455 1020 / 1020
Physical Exam
Physical Exam
GEN: No distress, awake, alert, oriented x3. chronically ill appearing. on supp O2
HEENT: supple, anicteric, mmm, eomi
LUNGS: Few crackles B/L, no wheezes
CV: Reg, S1/S2, 1/6 murmur
ABD: soft, BS+, NT/ND
EXT: No cyanosis, clubbing. 1+ edema of B/L LE. B/L ankles with dressings c/d/i
NEURO: Gross non-focal
SKIN: Warm, pink, dry. No rash. Fingertips dusky, but warm.
--- NOTE | 2024-09-04 10:12 | PTCARENOTE ---
Pt c/o 'hands feel numb'- hand cool/dusky; weak radial pulses. DR. Byrd notified. Hands wrapped in warm blanket. Will; continue to monitor.
--- NOTE | 2024-09-04 11:20 | W.PN.NEPH.PH ---
Today's Communication / Plan
-
diurese
Assessment/Plan
-
IMP:
Syncope likely vasovagal (patient was undergoing bowel prep for capsule endoscopy at the time)
Acute hypoxic respiratory insufficiency
Acute on chronic heart failure with preserved ejection fraction
Brigitte-baseline cr 1.1
Left clavicle fracture-sling in place
Lt 3rd thru 5th rib fractures
traumatic fractures, likely osteoporosis contributing
Chronic pleural effusions multiple thoracentesis this admit right 08/17 and 08/19
History of recurrent left-sided pleural effusion status post admission to [place] with VATS and pulmonary decortication 01/2024.
Ascites
Severe constipation
Ingested Capsule endoscopy BAGGAGE SMASHER has yet to pass
Peripheral artery disease
Chronic left foot ischemia
Left cephalic vein superficial thrombus
Anemia of chronic disease
chronic Hyponatremia
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
History of Takotsubo CM w/recovered EF (2005)
Paroxysmall atrial fibrillation
Prior PVI (2016)
s/p PFA 08/24/23
Hypothyroidism
Elevated troponin from nonischemic myocardial injury
Lung Nodule
Celiac disease
Moderate portal hypertensive gastropathy
Plan:
continue IV Bumex
goal diuresis is another 10#...
continue midodrine for hypotension
nonnephrotic proteinuria, edema likely cardiac in nature
she states that her appetite is excellent and that she eats 3 meals a day. however, her labs and edema and weight disparity suggest she is losing body mass over time.
follow BMP
angiogram LE could probably be done at this time as I suspect that there will not be a more optimal time going forward. However, there is a risk for worsening kidney function and ESRD and that will need to be factored in their decision
Lee for 48hr for I/Os to determine diuretic dosing, as cannot get standing weight
d/w pt and granddaughter
08/30 Dr. Howe spoke with son in person and explained poor renal prognosis that she is not an ideal candidate for HD with frail status and further potential decrease in QOL if choses HD, she will remains at [facility].
she understands and will speak to rest of the family and come up with decision
-
-
Date of Service: September 04, 2024
CC / HPI / ROS
-
Chief Complaint:
BRIGITTE with CKD
History of Present Illness:
BRIGITTE/Cr stable 1.5
BP low stable
weights up on bed scale with IV Bumex
sodium low stable 130
bicarb normal
Hgb down to 9.6
Review of Systems:
no CP/SOB
detailed a large breakfast she said she ate 2/3 of
thought she had a standing weight this morning (was bed scale)
UOP not measured
Labs
-
Labs:
WBC 7.9 10^3/uL (4.8-10.8) 09/04/24 07:57
RBC 3.07 10^6/uL (4.20-5.40) L 09/04/24 07:57
Hgb 10.2 g/dL (12.0-16.0) L 09/04/24 07:57
Hct 30.7 % (37.0-47.0) L 09/04/24 07:57
Plt Count 366 10^3/uL (130-400) 09/04/24 07:57
Sodium 130 mmol/L (135-145) L 09/04/24 07:57
Potassium 4.9 mmol/L (3.5-5.1) D 09/04/24 07:57
Chloride 104 mmol/L (98-107) 09/04/24 07:57
Carbon Dioxide 24 mmol/L (22-30) 09/04/24 07:57
BUN 65 mg/dl (7-17) H 09/04/24 07:57
Creatinine 1.5 mg/dL (0.6-1.0) H 09/04/24 07:57
eGFR 34.79 09/04/24 07:57
Glucose 79 mg/dl (70-99) 09/04/24 07:57
Calcium 7.3 mg/dl (8.4-10.2) L 09/04/24 07:57
Phosphorus 3.4 mg/dl (2.5-4.5) 09/03/24 07:53
Yok-I-Zibfpxlhrxd Pept 03620 pg/ml 08/30/24 17:37
Albumin 2.2 g/dl (3.5-5.0) L 09/02/24 04:49
Physical Exam
-
Vital Signs:
Vital Signs
Temp Pulse Resp BP Pulse Ox
97.3 F 62 18 102/53 100
09/04/24 07:20 09/04/24 09:13 09/04/24 07:20 09/04/24 09:13 09/04/24 10:25
Cardiovascular:: Regular rate and rhythm
Respiratory:: Bilateral: Coarse
Lung Excursion:: Normal
Abdomen:: Nontender and Soft
Bowel Sounds:: Normal
Extremity Edema:: +3: Bilateral:
--- NOTE | 2024-09-04 11:50 | WOUNDNOTE ---
WON RN NOTE: Followed up today as requested by nurse Shadia for worsening L heel ulcer. Patient assessed along with Dr. Byrd, granddaughter at bedside. L heel now with black eschar and purple discoloration, suspect now DTI. Cyanotic foot L>R, cool to
touch. Heel on R foot remains intact, protective foam in use and pillows under calves to offload heels. Dry dressing applied to L heel and protective foam changed on R heel. Recommend keeping L heel ulcer dry with Betadine, gauze and flor daily.
TruVue lite offloading heel boots applied to both heels. Wound care and offloading approved by Dr. Byrd. Reviewed Vascular note, Angiogram recommended but not a good candidate due to renal risks. Dr. Byrd notified vascular of changes to L heel. Patient
able to turn with assist, sacrum intact. Encouraged turning q few hours, does get oob to chair and using air cushion. Updated nurse Shadia on the above and asked to add air overlay to bed if patient not turning. Will update wound care and follow along
as needed.
[2024-09-04] MEDS: DUPHALAC/CHRONULAC 20 GRAMS PO (12:06)
--- NOTE | 2024-09-04 12:41 | PTCARENOTE ---
Lee #16 F placed without difficulty; draining clear light yellow urine. pt arlen procedure well. Stat pako applied to Lt thigh. Will continue to monitor.
--- NOTE | 2024-09-04 13:28 | W.PN.UPDATE ---
Update Note
Progress Note Update
Had the same conversation today with patient and granddaughter as was detailed in the update note from 09/03/2024.
Discussed options once again for addressing her heel wounds and associated pain.
She has fluctuating duskiness of her toes, left greater than right which has the appearance of venous congestion and blanches with manipulation. No wounds on toes bilat.
She currently has no pain in her forefoot or toes bilaterally. Pain is centered on the heels bilaterally.
Once again discussed lower extremity arteriogram versus a course of nonoperative therapy (local wound care, pressure offloading, short interval followup) to allow her to more fully recover from her recent fall, acute on chronic heart failure, acute
kidney injury.
She is currently still on oxygen and receiving aggressive diuresis for heart failure. ANNA is improving.
After explaining options once again she and her g-daughter (bedside) have decided to go with non-operative therapy for now. Local wound care. Pressure offloading with soft boots at all times. If clinical trajectory with respect to her legs is headed
in a negative direction we can always regroup about inpatient angio. Otherwise we will plan for short interval followup after discharge in the office.
Please call directly with any questions/concerns
I have communicated this plan to the medical services following her.
Jeremy Lee III, MD
Vascular Surgery
[facility]
[2024-09-04 18:00] LABS: Glucose - Point of Care 81 mg/dl (70-99)
[2024-09-04] MEDS: BenGay-Like TOPICAL (18:01)
--- NOTE | 2024-09-04 18:09 | PTCARENOTE ---
Pt very lethargic; sleeping; arousable to loud name calling; opens eyes briefly; returns to sleep. Nods head slightly to questions. Refusing to take PO meds; refuses PO intake . Accucheck BS 81. Current BP 98/45, HR 84. On nc 2 lpm, no SOB
noted. DR. Rosales Kilpatrick notified. Will continue to monitor.
[2024-09-04] MEDS: NSS (PRESERVATIVE FREE) 0.9 ML IV (18:41)
[2024-09-04] MEDS: NARCAN 0.04 MG IV (18:42)
--- NOTE | 2024-09-04 18:51 | W.PN.UPDATE ---
Update Note
Progress Note Update
Was notified by nursing at 6:10 PM that Gabriela is more lethargic and has been progressively getting more lethargic throughout the day.
Earlier in the day oxycodone dose was increased to 7.5 mg for which she received at 12.
Upon my evaluation she is lethargic wakes up answers 1 question and goes back to sleep difficult to arouse however did follow very simple commands such as squeeze my fingers, press down on my hand with her feet, however did not give me a thumbs up.
Regular rate rhythm.
Lethargy likely medication related however does have poor circulation though limited neurological exam without focality on areas that I did assess as above.
Will check CT brain
ABG
0.04 Narcan IV
Upgrade to IMU
Spoke with grandson and granddaughter and Glen her son
They are not ready for hospice in any form whatsoever. They hope to see an improvement in renal function. Once there is improvement in renal function they can go ahead and go forward with the CT angiogram.
Full code, understand that if lethargy progresses then will require mechanical ventilation for airway protection
Response to Narcan. Did wake up a little. Likely medication related.
Reduce dose of oxycodone to previous dose that did not cause lethargy
Will still upgrade to IMU check CT brain ABG for completeness
Total time spent assessing and reviewing and speaking with family members. 45mins
--- NOTE | 2024-09-04 19:00 | PTCARENOTE ---
Dr. Rosales Kilpatrick up to see pt. Narcan 0.04 mg IV given as ordered. Pt taken for CT scan of brain. Transferred to IMU/ [id number]; all belongings sent with pt. Pt awake and alert upon arrival to IMU. Report given to TERRI.
[2024-09-04 19:30] LABS: B.E. 1.1 mmol/L; HCO3 25.0 mmol/L (21-28); O2 Saturation % 96.6 % (94-98); PCO2 36 mmHg (32-35); PO2 77 mmHg (83-108)
[2024-09-04] MEDS: DUONEB 3 ML INH (19:38)
[2024-09-04] MEDS: ASPIR LOW (ENTERIC COATED) 81 MG PO (21:18)
[2024-09-04] MEDS: REMOVE LIDOCAINE PATCH 1 PATCH REMOVE (21:28)
[2024-09-04] MEDS: BUMEX IV (21:48)
[2024-09-04] MEDS: PACERONE PO (21:48)
[2024-09-04] MEDS: NSS 250 IV (21:48)
--- NOTE | 2024-09-04 21:48 | W.PN.UPDATE ---
Update Note
Progress Note Update
~ 19:30 Pt transfer from [facility], patient febrile, temp 100.4. Patient states she feels cold and shaky. Given Tylenol as ordered. Ordered BMP, CBC, Lactic acid, Blood Cx and CXR since new onset fever. No signficant change in labs. Lactic acid 1.4.
CXR per report, similiar to DXR from 09/01/24.
~ 21:30 Patient hypotensive, BP 78/38, MAP 50, HR 78, 90% on
Ordered NSS 250 bolus, held Bumex dose and Amiodarone.
Patient missed midodrine dose. Ordered Midodrine 5 mg PO x 1 dose.
Pt w/poor IV access, attempted by VAT team and unable to get additional access. IR unable to come in at this time. IV access able to be obtained via U/S by ED RN.
Levophed gtt started ~ 1:50 am. Levophed gtt increased to IMU Max at 8 mcg/min. BP 78/28, MAP 42. HR
Transfer to ICU for higher level of care, increased blood pressure support. Called and spoke to patient's son, All Cordova, and updated on patient's status and plan to transfer to ICU. Patient's family planning on coming in to hospital.
~ 2:45 Patients blood pressure improved prior to transfer to ICU, BP 129/62, HR 65, Resp 12, O2 sat 100%. Cancelled transfer to ICU at this time. Called and updated son, All, on improved blood pressure at this time and plan to keep in IMU. Son in
agreement with plan and asked to be called w/any changes.
~ 4:45 Patient hypotensive, maxed for IMU on Levophed. Will transfer to ICU level of care. Son at bedside, updated on plan of care and upgrade to ICU.
--- NOTE | 2024-09-04 23:40 | VATNOTE ---
Called to attempt to place a second IV site. Peripheral IV site attempted x2 unsuccessfully. Midline catheter then attempted in right arm also unsuccessfully. Able to cannulate vessel but unable to advance guidewire in spite of several attempts.
Right arm also very edematous in forearm and antecubital fossa. Primary care RN and nurse practitioner made aware, suggested ultrasound and central line placement by environmental project manager.
--- NOTE | 2024-09-04 23:51 | PTCARENOTE ---
received pt from 4E, bedside report given by 4E RN. Multiple family members at bedside. Pt aaox3, drowsy but easily arousable. NSR with occasional pacer spikes on monitor. Temp 101.0 axillary. PO tylenol given. Repeat temp 98.6. R forearm with +2/3
pitting edema. CATTLE RANCHER notified, US of RUE ordered. CXR ordered due to new fevers. Labs and blood cx ordered. Unable to be drawn by either VAT nurse. Labs cancelled at this time. BP @21:15 dropped to 82/45. Pt stated she felt a little lightheaded/dizzy.
Amio and bumex held. CATTLE RANCHER notified. 250ml NSS bolus ordered and given. 5mg midodrine PO ordered and given. Repeat BP 77/66 at 21:40. CATTLE RANCHER ordered levo but advised not to start levo until another line was accessed as her only line was a 22g peripheral
IV. VAT team made multiple attempts to place a second peripheral site and attempted to place midline but was unable to obtain another line. Levo ordered to keep SBP >90. Current BP 92/42. Pt remains drowsy but arousable. Remains full code. Per
hospitalist note, family is not ready for hospice.
[2024-09-05] VITALS (57 sets, daily range): BP systolic 63–165; BP diastolic 21–135; BMI 22.9
[2024-09-05] MEDS: TYLENOL PO ×3 (00:37→17:40)
[2024-09-05] MEDS: BenGay-Like TOPICAL ×4 (00:37→18:13)
[2024-09-05 01:51] LABS: Hematocrit 31.7 % (37.0-47.0); Hemoglobin 10.5 g/dL (12.0-16.0); Mean Corp Hgb Conc. 33.1 g/dL (33.0-37.0); Mean Corpuscular Volume 101.6 fL (81.0-99.0); Nucleated Red Blood Cells % 0 %; Platelet Count 357 10^3/uL (130-400); Red Cell Dist. Width 20.7 % (11.5-14.5)
[2024-09-05] MEDS: LEVOPHED 250 IV (01:53)
--- NOTE | 2024-09-05 02:06 | PTCARENOTE ---
ED nurse Pavithra came up to floor and placed an ultrasound guided 20g IV in pt R AC. Labs/blood cx sent. Levo order changed to keep MAP >65, pt MAP 47, levo hung @initial rate of 2mcg/min.
[2024-09-05 02:37] LABS: Glucose - Point of Care 84 mg/dl (70-99)
[2024-09-05 02:38] LABS: Blood Urea Nitrogen 64 mg/dl (7-17); Calcium 7.8 mg/dl (8.4-10.2); Carbon Dioxide 28 mmol/L (22-30); Chloride 102 mmol/L (98-107); Estimated Creatinine Clearance 26 ml/min; Glucose 105 mg/dl (70-99); Potassium 3.8 mmol/L (3.5-5.1); Sodium 133 mmol/L (135-145); eGFR 32.20
[2024-09-05] MEDS: TYLENOL 650 MG PO ×2 (03:09→07:45)
[2024-09-05] MEDS: SYNTHROID 150 MCG PO (05:17)
[2024-09-05 05:51] LABS: Glucose - Point of Care 148 mg/dl (70-99)
--- NOTE | 2024-09-05 07:37 | CON.INTV ---
Consultation
Consultation Request
Date/Time Consultation Requested: 09/05/2024-7 AM
Date/Time Consultation Performed: 09/05/2024-7:30 AM
Requesting Provider: hospitalist
Performing Provider: Dr. Zhou
Reason for Consultation: hypotension/critical care management
Medical History
-
Chief Complaint: hypotension/sepsis
History of Present Illness:
Patient is not 79-year-old female who was admitted to the hospital 21 days ago. Patient had an endoscopy procedure performed following which she had a syncopal episode and an unwitnessed fall. Patient was brought to the emergency room and further
imaging was suggestive of a displaced fracture of the lateral clavicle as well as minimal degenerative changes about the shoulder. Patient also noted to have lateral left 3rd through 5th rib fracture.
Patient was noted to have a large right-sided pleural effusion and had a thoracentesis performed on 08/17/24. Fluid study was suggestive of transudate. Patient has been on diuretics since. Over next few days patient had reaccumulation and on
08/21, she had another thoracentesis, right side performed with more than 1 L of transudative fluid removed. Pulmonary consultation was requested for further input. Patient had similar recurrent challenging left-sided pleural effusions in the past
which were managed with an indwelling pleural catheter placement in 2023, subsequently she had a VATS procedure performed and in indwelling pleural catheter was removed.
In view of recurrent right-sided pleural effusion, pulmonary consultation was requested for further input.. 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
consulted for sepsis, shortness of breath, pleural effusion and critical care management 09/05/2024.
Past Medical History
Past Medical History: None (Recurrent pleural effusion. CHF. Hypertension. A-fib. Osteopenia. Cataract. CAD. PPM. Pulmonary nodule. Hyperlipidemia. Pulmonary hypertension. Cardioversion. Cataract. Thoracenteses..)
Social History
Tobacco: Former Smoker
Alcohol: Occasional
Drug: None
Living: With Family
Occupational Exposures: No known asbestos exposure
Environmental Exposures: no known tuberculosis exposure
Family History
Family History: Reviewed & Not Pertinent
Allergies / Home Medications
Allergies
Allergy/AdvReac Type Severity Reaction Status Date / Time
Antihistamines Allergy Rash Verified 08/09/24 09:21
Cephalosporins Allergy Rash Verified 08/09/24 09:21
gluten Allergy Intestinal Verified 08/15/24 21:13
Issues
hydrochlorothiazide Allergy Rash Verified 08/09/24 09:21
penicillin G Allergy Rash Verified 08/09/24 09:21
penicillin V Allergy Rash Verified 08/09/24 09:21
Penicillins Allergy Rash Verified 08/09/24 09:21
Home Medications
�Medication �Instructions �Recorded �Confirmed �Last Taken �Type
aspirin 81 mg tablet,delayed 81 mg PO HS blood thinner 05/17/23 08/15/24 08/08/24 History
release
apixaban 2.5 mg tablet (Eliquis) 2.5 mg PO BID afib 07/19/23 08/15/24 08/15/24 History
ezetimibe 10 mg tablet (Zetia) 10 mg PO DAILY cholesterol 07/19/23 08/15/24 08/08/24 History
potassium chloride 20 mEq 20 meq PO DAILY Supplement 07/19/23 08/15/24 08/08/24 History
tablet,extended release(part/cryst)
amiodarone 200 mg tablet 100 mg PO DAILY Arrhythmia 05/10/24 08/15/24 08/15/24 History
cholecalciferol (vitamin D3) 50 50 mcg PO DAILY Supplement 05/10/24 08/15/24 08/08/24 History
mcg (2,000 unit) tablet (Vitamin
D3)
levothyroxine 50 mcg tablet 150 mcg PO DAILY Thyroid 05/10/24 08/15/24 08/08/24 History
metoprolol succinate 25 mg 25 mg PO DAILY Blood Pressure 05/10/24 08/15/24 08/15/24 History
tablet,extended release 24 hr
multivitamin-ferrous 1 tab PO DAILY Supplement 05/10/24 08/15/24 08/08/24 History
fumarate-folic acid 18 mg-400 mcg
tablet (Centrum)
sour monroe extract 1,000 mg 800 mg PO DAILY Supplement 05/10/24 08/15/24 07/15/24 History
capsule (Tart Monroe Extract)
spironolactone 25 mg tablet 12.5 mg PO MOWEFR Fluid 05/10/24 08/15/24 08/08/24 History
retention/Swelling
torsemide 20 mg tablet 20 mg PO DAILY Fluid 05/10/24 08/15/24 08/08/24 History
Retention/Swelling
vitamin B complex 1 tab PO DAILY Supplement 05/10/24 08/15/24 08/08/24 History
calcium carbonate (Calcium 600) 600 mg PO DAILY Supplement ##0 05/22/24 08/15/24 08/08/24 History
ascorbic acid (vitamin C) 1,000 mg 1,000 mg PO DAILY 08/15/24 08/15/24 Unknown History
tablet (Vitamin C)
diphenhydramine HCl 25 mg chewable 12.5 mg PO HSPRN PRN sleep 08/15/24 08/15/24 Unknown History
tablet (Allergy Relief
(diphenhydramine))
pitavastatin calcium 1 mg tablet 1 mg PO MOWEFR 08/15/24 08/15/24 Unknown History
(Livalo)
Review of Systems
-
Unable to Obtain full review of systems at this time due to: Other ( per HPI)
Vitals / Labs / Diagnostic Testing
Vital Signs
Temp Pulse Resp BP Pulse Ox
98.4 F 61 12 105/57 98
09/05/24 05:38 09/05/24 06:45 09/05/24 06:45 09/05/24 06:45 09/05/24 07:20
Lab Data
09/05/24 06:00
09/05/24 06:00
Laboratory Results
09/04/24
19:21
pH 7.45
pCO2 36 H
pO2 77 L
HCO3 25.0
O2 Delivery Level
Diagnostic Testing:
Physical Exam
-
Exam:
Chronically ill-appearing cachectic woman in no apparent respiratory distress
HEENT-atraumatic, normocephalic, temporal wasting
Neck-supple, no JVD, no bruit
Heart-regular rate and rhythm-no murmurs, rubs or gallops
Chest- diminished breath sounds at the base
Back-no tenderness
Abdomen-soft, nontender, nondistended, no hepatosplenomegaly
Extremities-no cyanosis, clubbing, edema and good peripheral pulses
Integument-intact, no rashes, lesions or ecchymosis
Neurology-alert and oriented, nonfocal motor and sensory exam
Assessment
-
Patient is not 79-year-old female who was admitted to the hospital 21 days ago. Patient had an endoscopy procedure performed following which she had a syncopal episode and an unwitnessed fall. Patient was brought to the emergency room and further
imaging was suggestive of a displaced fracture of the lateral clavicle as well as minimal degenerative changes about the shoulder. Patient also noted to have lateral left 3rd through 5th rib fracture.
Patient was noted to have a large right-sided pleural effusion and had a thoracentesis performed on 08/17/24. Fluid study was suggestive of transudate. Patient has been on diuretics since. Over next few days patient had reaccumulation and on
08/21, she had another thoracentesis, right side performed with more than 1 L of transudative fluid removed. Pulmonary consultation was requested for further input. Patient had similar recurrent challenging left-sided pleural effusions in the past
which were managed with an indwelling pleural catheter placement in 2023, subsequently she had a VATS procedure performed and in indwelling pleural catheter was removed.
In view of recurrent right-sided pleural effusion, pulmonary consultation was requested for further input.. 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
consulted for sepsis, shortness of breath, pleural effusion and critical care management 09/05/2024.
Sepsis unresponsive to fluids requiring pressors
Admitted with fall, clavicular fracture
CHF preserved EF
Vasovagal syncope
Recurrent pleural effusion
ANNA
Hyponatremia
Chronic anticoagulation
[id number]-[id number] 10.5
Conditions present prior to admission:
Celiac Disease 1975
Takotsobu cardiomyopathy-recovered EF
s/p CARDIOGENIC SHOCK 04/08/05 EF 20% IMPROVED TO 50 % 04/09/[address]
Former smoker >20 pack years, quit 30 years ago
Recurrent pleural effusion
s/p Left Asept pleural catheter placement 11/29/23, removed after admission to [place] with VATS and pulmonary decortication 01/2024
Small to moderate B/L pleural effusions by CXR 08/15/2024
R thoracentesis 08/17/2024 for 1500 cc - no growth on culture, fluid studies suggestive of transudate
R thoracentesis 08/21/2024 1350cc clear yellow
Hiatal hernia
Lyme disease
Carotid Disease
Hypertension
PANCREATITIS 2006
Irritable bowel disease
CHF
SVT/Paroxysmal atrial fibrillation s/p Cardioversion 06/18/2016
Endometrial polyps s/p D & C, polypectomy
HYPERLIPIDEMIA - MIXED
Fracture right foot/ankle in Feb 2018
Lymphocytic Colitis
Ambulatory dysfunction/Balance issues
Inguinal herniographies xs 2 02/25/2011
Vein removal in [place] inner foot 2020
Bilateral cataract surgeries 2020
History of pancreatitis 2005
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
Plan
The patient was transferred to medical intensive care unit for persistent hypotension despite fluid resuscitation requiring pressors
Supplement oxygen as needed
High flow oxygen if needed
BiPAP if necessary
Intubate and mechanically ventilate if necessary
Aspiration precautions
Nebulizers if needed
Thoracentesis right side 09/05/2024- -1300 mL straw-colored fluid, cultures and cytology pending
Obtain cultures
Empiric antibiotics will be initiated with ongoing hypotension in this very frail woman
Consider Infectious disease consultation
Monitor leukocytosis
Fluid resuscitation with 30 mL/kg crystalloid-preferably lactated ringer-(less ANNA) with subsequent boluses as needed
Monitor lactate
Follow CVP if possible
Attempt noninvasive bedside tissue perfusion evaluation to see if fluid bolus responsive
Measure pulse pressure and stroke volume variation if patient on ventilator, passively breathing without arrhythmia and with temporary large tidal volume ventilation and if > 13% then likely fluid bolus responsive
If patient active then consider measuring bedside leg lift for 3 minutes and if cardiac output increases or if there is a rise of 2-4 on end-tidal CO2 then fluid bolus
If bedside ultrasound available then measure IVC diameter variation to evaluate for fluid bolus responsiveness
Begin pressors as needed for MAP goal of 65-Norepinephrine first, then Vasopressin and consider Angiotensin II if continues to be hypotensive
Consider methylene blue if available-specific inhibitor of induced nitric oxide synthase iNOS and its downstream enzyme soluble guanylate cyclase-noninferiority study shown to reduce time to vasopressor discontinuation, decreased ICU length of stay,
hospital stay but no change in mortality-published Critical Care 05/17/2022
If persistently hypotensive then consider checking random cortisol-hydrocortisone if random less than 3, if 3-15 then consider ACTH stimulation test
If persistently hyperthermic then correcting hyperthermia can decrease pressor requirements, increased chances of reversal of shock and decrease mortality
Cardiology following-correspondence reviewed
Helping with diuresis
Nephrology following-correspondence reviewed
Eventual diuresis as tolerated-was on IV Bumex
Monitor renal function, electrolytes, intake/output, lower extremity edema and weight
Replace electrolytes as needed
Patient not ideal candidate for hemodialysis with frail status and further potential decrease in quality of life
Vascular surgery following for lower extremity ischemia
Continue Eliquis
DVT prophylaxis
Early nutrition if possible
Early mobilization/bedside range of motion
Critical care statement: A total of 65 minutes of critical care time was provided for this patient today. This includes management of unstable vital signs, evaluation of the patient at bedside, reviewing the patient's pertinent medical records
including radiographs, microbiology, laboratory evaluations, and discussion with primary team, consultants, pharmacy, nutrition, physical therapy, case management, charge nurse, critical care nursing, and respiratory therapy.
Diagnostic data:
Chest x-ray 09/01/2024-small to moderate right pleural effusion slightly increased
Chest ultrasound 09/04/2024-moderate right-sided pleural effusion
Chest x-ray 09/04/2024-
Echo 05/18/2023: EF 69%, stage II diastolic dysfunction. Moderately dilated right atrium. Mild to moderate MR. Mild TR. PAP 36 mmHg. Small pericardial effusion
Echo 11/25/2023: EF 55-60%, global longitudinal strain is -14.2, stage III diastolic dysfunction, mild MR, dilated left atrium, aortic sclerosis, normal RV, pulmonary artery systolic pressure 45-50 mmHg
Echo 08/16/2024: EF 60-65%, mild cLVH, stage II diastolic dysfunction, mild MR, severe TR, estimated PAP 70 mmHg, small to moderate pericardial effusion w/o evidence of hemodynamic compromise
Data Reviewed
-
EKG: Report reviewed by me
Radiology: Image personally visualized and interpreted and Report reviewed by me
CT Scan: Image personally visualized and interpreted and Report reviewed by me
Ultrasound: Report reviewed by me
Medical Tests (Nuc Med, Echo etc): Report reviewed by me
Labs: Labs reviewed by me
Old Records: Reviewed
Critical Care Time (in minutes): 65
[2024-09-05] MEDS: SODIUM BICARBONATE 1300 MG PO (07:45)
[2024-09-05] MEDS: KCL 20 MEQ PO (07:45)
--- NOTE | 2024-09-05 07:45 | PTCARENOTE ---
Received pt sitting up in bed with her son All at the bedside. She easily awakens to RN entering the room. [facility] is calling her her ad she was informed of that. Meanwhile she was c/o being cold and that she cannot stop shivering, temp 97.9 orally.
C/O her hands being very cold, they are cold and cyanotic, denies numbness or tingling. SHe also was c/o difficulty breathing, HOB elevated with some relief. Anteriorly her breath sounds were clear and dim in both bases. + murmur. Toes cyanotic, and
dressing to he reft heel intact. She can wiggle her feet and denies loss of sensation. Safe environment maintained. +2 anasarca. Ecchymosis of her left shoulder/axilla and her U/E's. Safe environment maintained.
--- NOTE | 2024-09-05 08:30 | W.PN.HOSP.TC ---
Addendum entered and electronically signed by Chadd Byrd MD 09/06/24 16:03:
Patient with septic shock from acute urinary tract infection, IV antibiotics started by target setter.
Addendum entered and electronically signed by Chadd Byrd MD 09/05/24 16:39:
Patient and family now agreeable to DNR.
Will change CODE STATUS to DNR.
Original Note:
Today's Communication/Plan
-
see bold
Assessment / Plan
Assessment / Plan
HPI: 79F hx pleural effusion HFpEF HTN afib ppm Celiac dz HLD pulm htn here for evaluation syncope with associate clavicle and rib fractures likely d/t fall. Syncope had occurred while taking bowel prep for capsule endoscopy. Patient endorsed
feeling lightheaded/dehydrated prior to event.
# Chronic pleural effusions suspected multifactorial from partial hypoalbuminemia, deconditioning, possible malnutrition unclear severity
# Right pleural effusion status post thoracentesis on 05/23/2024 with symptomatic improvement in 1350 cc of fluid removed
# History of recurrent left-sided pleural effusion status post admission to [place] with VATS and pulmonary decortication 01/2024.
# Ascites
# Shock, suspect cardio genic shock
Status post right thoracentesis on 08/17, draining 1.5 L, cultures negative for growth, path negative for malignancy, shows inflammation
Status post right thoracentesis 08/19, draining 1.35 L, cultures negative for growth, path negative for malignancy, shows inflammation
09/05, despite diuresis with Bumex 2 mg IV twice a day, patient has reaccumulated her right pleural effusion requiring more oxygen, 4 L
Status post right thoracentesis 09/05, draining 1.3 L, follow-up cultures and path
Midodrine increased to 5 mg 3 times daily for hypotension
Holding IV Bumex. Currently on Levophed, wean as tolerated
# Acute on chronic heart failure with preserved ejection fraction
#ANNA
#Metabolic Acidosis
#Cardiorenal syndrome
Cardio and Nephro eval appreciated
Holding IV Bumex secondary to shock
#Fever
Patient had temperature of 101 at 8 PM on 09/04
No leukocytosis, she does have a left shift. Lactic acid normal
Chest x-ray negative for infiltrate or opacity, shows improved right pleural effusion
Check urine analysis, follow-up on blood culture
Monitor off antibiotics
#Peripheral artery disease
#Cyanotic left foot
#Acute on Chronic left foot ischemia heel wound
#Right heel pressure wound
Appreciate vascular surgery input, patient has chronic SFA stenosis
Appreciate vascular surgery input, patient and family are not interested in dialysis, and therefore would defer angiography
Continue wound care
#Syncope likely vasovagal (patient was undergoing bowel prep for capsule endoscopy at the time)
This was her presenting symptom to the ER. Head CT negative
Unable to obtain orthostatic vital signs as patient has not been able to stand prolonged time for standing blood pressure d/t left lower ext pain as below
#Acute hypoxic respiratory insufficiency multifactorial rib fractures, atelectasis, heart failure, pleural effusions
#Left clavicle fracture-sling in place
#Lt 3rd thru 5th rib fractures Displaced
#Traumatic fractures, likely osteoporosis contributing
Thoracic Lumbar XR appreciated multilevel discogenic degenerative disease, small to mod b/l pleural effusions, acute interstitial/alveolar cardiogenic edema, large dense b/l lower lobe airspace consolidations most likely d/t atelectasis
Orthopedic eval appreciated conservative mgmt left clavicle fracture, arm sling, NWB LUE 4-6wks, follow up with orthopedic before advancing activity
Repeat Shoulder X-ray 08/30 appreciated comminuted and displaced fracture distal left clavicle radiographically stable
Intermittently requiring oxygen supplementation throughout hospitalization
Continue pain control, incentive spirometry. Pain regimen adjusted to oxycodone 2.5 mg q6hprn due to oversedation on 09/04
Appreciate orthopedic surgery reevaluation on 09/03�okay for left upper extremity weightbearing as tolerated
Continue scheduled Tylenol, Bengay-like cream, Gabapentin 100 mg TID added for possible neuropathic pain ('pins and needle' sensation Lower ext's) titrated up to 200 mg BID
#Severe constipation
#Ingested Capsule endoscopy
Status post enema 08/21
Continue aggressive bowel regimen
Passed capsule endoscopy 08/26
Follow up GI for results
#Left cephalic vein superficial thrombus
Supportive care
# Anemia of chronic disease
Hemoglobin dipped to 7.8
Status post 1 unit PRBC 08/18/24 with appropriate response, Hgb has remained stable since
Continue to monitor, transfuse as needed
#Hyponatremia
#Metabolic Acidosis
Fluid restrict, trend sodium
Samsca bicarb as per Nephro
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
#History of Takotsubo CM w/recovered EF (2005)
# Paroxysmal atrial fibrillation
# Prior PVI (2016)
# s/p PFA 08/24/23
-continue TRACTOR MECHANIC eliquis 2.5 bid
-continue TRACTOR MECHANIC metoprolol
-amiodarone 200 mg BID as per cardio
# Hypothyroidism
-Synthroid continued
-TFT appears to suggest Hypothyroidism uncontrolled, TSH elevated
-pt endorses compliance with synthroid and no recent changes in dose
-repeated TFT shows TSH significantly improved trending down
-cont current synthroid for now, outpt follow up with Endocrinology recommended
#Severe Vit D deficiency
Home Vit D supplementation increased to High Dose weekly supplement, cont
#Elevated troponin from nonischemic myocardial injury
#Lung Nodule
# Celiac disease
Gluten free diet
#Moderate portal hypertensive gastropathy
PT/OT appreciated SNF rehab
DVT PPX on Eliquis
Code status - full code
Patient with multiple comorbidities�seen by palliative care this admission, patient is not ready for hospice at this time
Disposition�short-term rehab at [facility] when stable
Had goals of care discussion with patient and her sons on ecommend DNR, they will think about it
Total time spent to see the patient on the floor, examine the patient, review data and lab results, discuss treatment plan with patient, nursing staff around 54 minutes.
Physical Exam
General: Appears debilitated, no acute distress
HEENT: NormoCephalic, Moist mucous membranes and Atraumatic
Respiratory: Bibasilar crackles
Cardiac: S1/S2 and Regular Rhythm; No Murmur or Rub
GI: Soft, Non Tender, abd distended and Normal Bowel Sounds
Musculoskeletal: No Clubbing, Left arm with edema, Left arm in sling, +2 pitting edema LUE
Bilateral lower extremities edema +1
Left toes cyanotic appearance, left foot cool to touch, colder in comparison to right foot
Left heel with eschar
Neuro: Somnolent but arousable
Anticipated Discharge: > 48 hours
Subjective/Interval History
-
Date of Service: September 05, 2024
Overnight events noted. Patient became hypotensive, moved to the ICU for Levophed administration. Patient had a right thoracentesis this morning, draining 1.3 L of fluid. She reports her breathing is improved after the procedure. She was febrile
last night. Denies lightheadedness, denies dizziness. No vomiting.
Objective Data
-
Labs:
Laboratory Results
09/04/24 09/05/24 09/05/24
22:07 01:41 06:00
WBC Cancelled 8.4 Cancelled
Hgb Cancelled 10.5 L Cancelled
Hct Cancelled 31.7 L Cancelled
Plt Count Cancelled 357 Cancelled
Sodium Cancelled 133 L Cancelled
Potassium Cancelled 3.8 Cancelled
Chloride Cancelled 102 Cancelled
Carbon Dioxide Cancelled 28 Cancelled
BUN Cancelled 64 H Cancelled
Creatinine Cancelled 1.6 H Cancelled
Glucose Cancelled 105 H Cancelled
Calcium Cancelled 7.8 L Cancelled
Vital Signs:
Vital Signs
Temp Pulse Resp BP Pulse Ox
98.4 F 61 12 105/57 98
09/05/24 05:38 09/05/24 06:45 09/05/24 06:45 09/05/24 06:45 09/05/24 07:20
I&O
09/04/24 09/05/24 09/06/24
06:59 06:59 06:59
Intake Total 1020 / 1020 840 / 840
Output Total 1000 / 1000
Balance 1020 / 1020 -160 / -160
--- NOTE | 2024-09-05 08:43 | PTOTSP ---
Reviewed chart and noted pt transferred from [facility] to IMU then ICU. PT and OT orders were not continued upon transfer. Will need new orders for PT and OT when stable to resume therapy activities.
--- NOTE | 2024-09-05 08:46 | PTCARENOTE ---
Pt currently in [facility]. Prior to transport, she had multiple complaint; rigors, cold hands & SOB. Temperature 97.9 prior to transport. Left ear pulse ox fleeting but intermittently reads 97-99% with good pleth. Orthopneic. +Murmur, intermittently
a-paced to SB 60. Pt son All at the bedside. Right upper arm #20g protective catheter with Norepinephrine @ 8mcg/min. Attempted to taper for MAP>65 nut did not tolerate it. Breath sounds dim in both bases but right worse than the left. Left base
+crackles. Poor inspiratory effort. +2-3 anasarca. +weak palpable right DP pulse. L DP doppler pulse. 2nd & 3rd left toes cyanotic. Dressing CDI to left heel . Heel relief boots intact. Right FA swollen with ecchymosis, bloody oozing noted from
right FA, gauze dressing applied. +BSx4. No BMx2 days. She was able to take PO meds 1 at a time. Safe environment maintained. Son is in [facility] waiting room. He was informed of the savage of care.
--- NOTE | 2024-09-05 09:47 | PTCARENOTE ---
IV nurse notified RN of failed midline attempt, unable to advance guidewire. Notified Dr. Zhou. [facility] consulted for PICC placement or TL CVC if PICC failed. [facility] notified, and spoke with Sumaya MURRAY.
--- NOTE | 2024-09-05 10:07 | PTCARENOTE ---
Pt's son Taya aware she helio getting either a PICC or other central catheter placed while down in [facility]. He verbalized his understanding.
--- NOTE | 2024-09-05 10:41 | PTCARENOTE ---
Retrieved pt from [facility]. Upon return to her room she was provided CHG bath, wiseman catheter care. Washed her face and informed her of the plan of care regarding monitoring her BP, Medication administration, and reporting her symptoms of SOB or pain.
Fingers and toes remain cyanotic and cool. Breath sounds dim in the bases with poor inspiratory effort. Tolerating 4 liters nasal cannula. Sacrum red and blamchable, she remained tilted on her left side. Left shoulder/axilla with small area of blue
ecchymosis. Lidocaine patch applied to both posterior shoulder blades as instructed by the pt. Right FA#20g rtective catheter with Norepinephrine @ 14mcg/min. Right IJ TL CVC with all ports capped. New Norepinephrine bag/tubing set up and infusing
via right IJ TL CVC. Dressing with bloody drainage, which is known from [facility]. Will monitor for continued oozing. Safe environment maintained. Supportive care provided.
[2024-09-05] MEDS: LIDOCAINE 4% PATCH 2 PATCH TOPICAL (11:00)
--- NOTE | 2024-09-05 11:21 | W.PN.CARDCBS ---
Addendum entered and electronically signed by Sukhdev Renner MD 09/05/24 15:15:
I saw and examined the patient.
The Plastic Cutter's note was reviewed and I agree with the note.
Comment: Briefly, 79-year-old woman past medical history of heart failure with preserved ejection fraction, hypoalbuminemia, recurrent pleural effusion status post Pleurx and subsequent VATS, persistent atrial fibrillation status post PVI and
permanent pacemaker who presents in acute on chronic heart failure. Likely a component of hypoalbuminemia contributing as well.
Developed hypotension overnight, was started on Levophed and transferred to the medical ICU
Hold metoprolol while requiring pressors
Continue amiodarone and Eliquis for AFib
Underwent thoracentesis earlier today but still requiring supplemental O2
Will defer diuretic management to nephrology
Ongoing goals of care discussion, hospice would be appropriate given overall poor prognosis
Original Note:
Today's Communication / Plan
-
continue pressor support, wean as able
s/p R thora
bumex on hold
prognosis poor
GOC discussions ongoing. full code at this time
Impression / Plan
-
PCP: Stella Sutherland PA-C
Occupational Therapist'S Assistant: Dr. Kiera Diaz
Impression:
Admitted with fall, clavicle fracture and possible acute HF 08/15/24
Syncope
Fall and left clavicle fracture
Acute on chronic HFpEF
Recurrent pleural effusion
s/p Left Asept pleural catheter placement 11/29/23, removed after admission to [place] with VATS and pulmonary decortication 01/2024
Small to moderate B/L pleural effusions by CXR 08/15/2024
R thoracentesis 08/17/2024 for 1500 cc - no growth on culture, fluid studies suggestive of transudate
R thoracentesis 08/21/2024 1350cc clear yellow
ANNA
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
Hyponatremia
Paroxysmal atrial fibrillation
Prior PVI (2016)
s/p PFA 08/24/23
Tikosyn stopped during [facility] rehab stay 02/2024 and now on chronic amiodarone
recurrent afib 08/22/2024 and Amio increased to 200 mg bid
Chronic anticoagulation on Eliquis
Takotsubo CM w/recovered EF (2005)
Negative workup for cardiac amyloid
HLD
HTN
MR
Renal nephrosis
Lung Nodule (2021, stable)
Anemia
celiac dz
Echo 05/18/2023: EF 69%, stage II diastolic dysfunction. Moderately dilated right atrium. Mild to moderate MR. Mild TR. PAP 36 mmHg. Small pericardial effusion
Echo 11/25/2023: EF 55-60%, global longitudinal strain is -14.2, stage III diastolic dysfunction, mild MR, dilated left atrium, aortic sclerosis, normal RV, pulmonary artery systolic pressure 45-50 mmHg
Echo 08/16/2024: EF 60-65%, mild cLVH, stage II diastolic dysfunction, mild MR, severe TR, estimated PAP 70 mmHg, small to moderate pericardial effusion w/o evidence of hemodynamic compromise
Plan:
-Presented after fall/syncope in the setting of prepping for capsule endoscopy. Admitted with clavicle fracture. Syncope felt to be secondary to acute on chronic anemia, frequent defecation, and orthostasis. Also w/ acute HF and ANNA.
-yesterday afternoon patient was noted to be more lethargic and required narcan with some improvement
-overnight patient noted to be more SOB as well as hypotensive requiring levo. transferred to ICU. currently on 14.
-she was noted to have reaccumulation of R pleural effusion. underwent R thoracentesis for 1300cc 09/05. reports breathing somewhat improved.
-bumex currently on hold. nephrology managing
-continue supp O2, wean as able
-EF stable by echo this admission. Prior cardiac amyloid work up negative
-not on petra/arb/arni/aldactone due to hypotension/ANNA on CKD. no SGLT2 due to UTI
-L foot remains dusky. vascular surgery following. attempting to manage conservatively as felt to be high risk for revascularization procedures
-she appears to be back in SR on review of tele, occasional apacing. Heart rates are controlled. Continue amiodarone and metoprolol.
-Continue Eliquis 2.5 mg twice daily
-EF stable by echo this admission. Prior cardiac amyloid work up negative
-prior goal of care discussions with patient and family have resulted in no interest to pursue hospice or conservative measures at this time.
-prognosis guarded
-d/w nursing
HPI: Patient came to [facility] ER yesterday after fall and is now being mated with syncope, clavicle fracture and possible HFpEF with consultation to cardiology. Patient was seen in the office on 07/17/2024 and her proBNP was felt to be acceptable
although her weight was up to 136 lbs with her previous weight being 133 lbs, there were also moderate bilateral pleural effusions. Usual dose of torsemide 20 mg daily was continued and the patient was agreeable to referral for palliative care
assessment. eCW tasks was reviewed by me and patient was given 1 unit PRBCs on 08/02/2024 for Hgb of 7.7 and the Hgb only improved up to 8.2 so a second unit was given on 08/06/24. Remote device check 08/08/2024 had a 7-hour long atrial flutter episode
and patient was already on Eliquis, no other changes, but later that day patient called with weight gain and was told to take additional torsemide 20 mg for a total of 40 mg daily on 08/08/2024 and 08/09/2024 and although she lost 4 lbs she had ongoing
GILLIAM and fatigue. Then patient was preparing for a scheduled capsule endoscopy for her celiac disease by taking Miralax and after swallowing the capsule she felt disoriented, lost her sense of balance and had a fall. Patient was brought to [facility] ER
and admitted for syncope, clavicle fracture and possible acute on chronic HFpEF. Patient was given Lasix 40 mg IV x 1 in the ER. Her Cre on arrival was 1.0 and today is up to 1.4.
Progress Note - Occupational Therapist'S Assistant
Subjective
Date of Service: September 05, 2024
Reports breathing improved post thoracentesis
Objective
Labs:
09/05/24 06:00
09/05/24 06:00
Labs
Hgb Cancelled 09/05/24 06:00
Hct Cancelled 09/05/24 06:00
Plt Count Cancelled 09/05/24 06:00
PT 24.9 Sec (11.4-14.6) H 08/30/24 07:07
INR 2.20 08/30/24 07:07
Sodium Cancelled 09/05/24 06:00
Potassium Cancelled 09/05/24 06:00
BUN Cancelled 09/05/24 06:00
Creatinine Cancelled 09/05/24 06:00
Glucose Cancelled 09/05/24 06:00
Vital Signs and I&O:
Vital Signs
Temp Pulse Resp BP Pulse Ox
98.1 F 64 12 119/69 98
09/05/24 11:14 09/05/24 10:25 09/05/24 10:25 09/05/24 10:09/05/24 08:30
Vital Signs
Temp Pulse Resp BP Pulse Ox
98.1 F 64 12 119/69 98
09/05/24 11:14 09/05/24 10:25 09/05/24 10:25 09/05/24 10:25 09/05/24 08:30
Intake & Output
09/03/24 09/04/24 09/05/24 09/06/24
07:59 07:59 07:59 07:59
Intake Total 780 / 780 1020 / 1020 870 / 980 110 / 110
Output Total 325 / 325 1000 / 1000
Balance 455 / 455 1020 / 1020 -130 / -20 110 / 110
Physical Exam
Physical Exam
GEN: No distress, awake, alert, oriented x3. chronically ill appearing. on supp O2
HEENT: supple, anicteric, mmm, eomi
LUNGS: Few crackles B/L, no wheezes
CV: Reg, S1/S2, 1/6 murmur
ABD: soft, BS+, NT/ND
EXT: No cyanosis, clubbing. 1+ edema of B/L LE. B/L ankles with dressings c/d/i
NEURO: Gross non-focal
SKIN: Warm, pink, dry. No rash. Fingertips dusky, but warm. L toes dusky.
[2024-09-05] MEDS: HYDROPHOR TOPICAL (12:07)
[2024-09-05] MEDS: LR 500 IV (12:30)
[2024-09-05] MEDS: SENOKOT-S 2 TABLET PO (12:36)
[2024-09-05] MEDS: ZETIA 10 MG PO (12:36)
[2024-09-05] MEDS: MIRALAX 17 GRAMS PO (12:36)
[2024-09-05] MEDS: VITAMIN C 1000 MG PO (12:37)
[2024-09-05] MEDS: NEURONTIN 200 MG PO (12:38)
[2024-09-05] MEDS: PACERONE 200 MG PO (12:38)
[2024-09-05] MEDS: OSCAL CAL 500 500 MG PO (12:39)
[2024-09-05] MEDS: ELIQUIS 2.5 MG PO (12:39)
--- NOTE | 2024-09-05 13:13 | PTCARENOTE ---
Family at the bedside. They are discussing Hospice options. Dr. Rosales Byrd and Dr. Zhou notified via TT. Case managent consult for Hospice placed as ordered. Pt. & family provided supportive care.
--- NOTE | 2024-09-05 14:05 | PTCARENOTE ---
Right IJ TL CVC dressing saturated with bloody drainage. Dressing changed and oozing noted. Large clot noted. [facility] nurse Sumaya notified of this. Safe environment maintained. Pt appears tired, and asking questions about Hospice and the possibility
of going home. She was informed that the hospice nurse can provide all that information in detail. Supportive care continued.
--- NOTE | 2024-09-05 14:23 | PTCARENOTE ---
Family at the bedside. Providing fluids to the pt to quench her thirst. Awaiting Hospice nurse to arrive to provide information to family.
--- NOTE | 2024-09-05 14:23 | PHA.VAN.IN ---
Assessment
- Assessment
Renal Function: SCR Appears Elevated from baseline (SCR 1.6 vs ~0.9-1)
Concomitant Antimicrobials: cefepime
Plan
- Plan
Initial / Loading Dose: 1500mg - administration pending
Maintenance Regimen: dosing by level
Monitoring: random 09/06 06
MRSA Screen: Ordered per protocol
Pharmacokinetics Vancomycin I
- -
Patient Age: 79
Patient Sex: Female
Vancomycin Day #: 1
Indication: Pulmonary/Respiratory
Requesting Provider: Dr. Zhou
Pertinent Antimicrobial Allergies:
cephalosporins - rash
penicillin - rash
Height / Weight:
Height 5 ft 6 in
Actual Weight 64.438 kg
- Vital Signs / Lab Results
Temp Pulse Resp BP Pulse Ox
98.1 F 72 14 144/121 98
09/05/24 11:14 09/05/24 12:38 09/05/24 11:45 09/05/24 12:38 09/05/24 08:30
Lab Results - Hematology
09/03/24 09/04/24 09/04/24
07:53 07:57 22:07
WBC 8.9 7.9 Cancelled
09/05/24 09/05/24
01:41 06:00
WBC 8.4 Cancelled
Lab Results - Chemistry
09/03/24 09/04/24 09/04/24
07:53 07:57 22:07
BUN 65 H 65 H Cancelled
Creatinine 1.6 H 1.5 H Cancelled
Estimated Creat Clear 26 28 Cancelled
09/05/24 09/05/24
01:41 06:00
BUN 64 H Cancelled
Creatinine 1.6 H Cancelled
Estimated Creat Clear 26 Cancelled
09/04/24 09/05/24
22:07 01:41
Lactic Acid Cancelled 1.4
Microbiology Results
09/05/24 09:17 Gram Stain - Preliminary
Pleural Fluid
--- NOTE | 2024-09-05 14:23 | W.PN.NEPH.PH ---
Today's Communication / Plan
-
supportive care
no HD per pt and son
hospice consult
Assessment/Plan
-
IMP:
Syncope likely vasovagal (patient was undergoing bowel prep for capsule endoscopy at the time)
Acute hypoxic respiratory insufficiency
Acute on chronic heart failure with preserved ejection fraction
Brigitte-baseline cr 1.1
Left clavicle fracture-sling in place
Lt 3rd thru 5th rib fractures
traumatic fractures, likely osteoporosis contributing
Chronic pleural effusions multiple thoracentesis this admit right 08/17 and 08/19
History of recurrent left-sided pleural effusion status post admission to [facility] with VATS and pulmonary decortication 01/2024.
Ascites
Severe constipation
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
Peripheral artery disease
Chronic left foot ischemia
Left cephalic vein superficial thrombus
Anemia of chronic disease
chronic Hyponatremia
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
History of Takotsubo CM w/recovered EF (2005)
Paroxysmall atrial fibrillation
Prior PVI (2016)
s/p PFA 08/24/23
Hypothyroidism
Elevated troponin from nonischemic myocardial injury
Lung Nodule
Celiac disease
Moderate portal hypertensive gastropathy
Plan:
nonnephrotic proteinuria, edema CRS
pressors support
diuretics
son at bedside discuss poor prognoisis
not HD candidate
family to pursue hospice
dw ICU nurse as to plan

33 min cc time
-
-
Date of Service: September 05, 2024
CC / HPI / ROS
-
Chief Complaint:
BRIGITTE with CKD
History of Present Illness:
BRIGITTE/Cr stable 1.5
BP low stable
pressors
Review of Systems:
sob no cp
nonoliguric
Labs
-
Labs:
WBC Cancelled 09/05/24 06:00
RBC Cancelled 09/05/24 06:00
Hgb Cancelled 09/05/24 06:00
Hct Cancelled 09/05/24 06:00
Plt Count Cancelled 09/05/24 06:00
Sodium Cancelled 09/05/24 06:00
Potassium Cancelled 09/05/24 06:00
Chloride Cancelled 09/05/24 06:00
Carbon Dioxide Cancelled 09/05/24 06:00
BUN Cancelled 09/05/24 06:00
Creatinine Cancelled 09/05/24 06:00
eGFR Cancelled 09/05/24 06:00
Glucose Cancelled 09/05/24 06:00
Calcium Cancelled 09/05/24 06:00
Phosphorus 3.4 mg/dl (2.5-4.5) 09/03/24 07:53
Qhi-B-Lgcalgernoo Pept 02403 pg/ml 08/30/24 17:37
Albumin 2.2 g/dl (3.5-5.0) L 09/02/24 04:49
Physical Exam
-
Vital Signs:
Vital Signs
Temp Pulse Resp BP Pulse Ox
98.1 F 72 14 144/121 98
09/05/24 11:14 09/05/24 12:38 09/05/24 11:45 09/05/24 12:38 09/05/24 08:30
[2024-09-05] MEDS: VANCOCIN 530 MG IV (15:17)
--- NOTE | 2024-09-05 15:17 | CM ---
Addendum entered by Zacarias Rico 09/05/24 15:18:
No further HD per patient and son.
Original Note:
Hospice consult ordered. courtesy driver notified. Family prefers at home hospice.
[2024-09-05] MEDS: DRISDOL (VITAMIN D2) PO (15:37)
[2024-09-05] MEDS: VITAMIN B-12 PO (15:37)
[2024-09-05] MEDS: DUPHALAC/CHRONULAC PO (15:37)
[2024-09-05] MEDS: DUONEB 3 ML INH (16:11)
--- NOTE | 2024-09-05 16:19 | PTCARENOTE ---
Right IJ TL CVC dressing saturated and soiled bed linen. Dressing changed, large gelatinous clot removed, hemestat dressing supplied by [facility] placed at insertion site with bio patch for the ooze. PT worsening WOB during dressing change. Oxygen
titrated to 8 liters nasal cannula and respiratory notified for neb treatment for audible wheeze. Poor pulse oximetry waveform. Fingers grossly cyanotic. IV Vanco infusing. Mottling of her L/E's worsening. Tremulous. Awaiting arrival of All for
GOC discussion with Hospice nurse. Pt's HOB elevated, fiber filled boots removed. Supportive care provided to pt.
[2024-09-05 16:20] LABS: Urine Character Clear (Clear)
--- NOTE | 2024-09-05 16:20 | PTCARENOTE ---
Spoke with pt's 4 sons and DIL regarding her worsening condition as evidenced by her increase WOB, increased oxygen requirements, elevated HR, elevated RR, her worsening mottling of her extremities and my inability to obtain a reliable pulse
oximetry reading and worsening tremors. I informed th family of this and given Hospice was consulted and soon to arrive at the bedside to have discussion about Hospice if they would want her to be resuscitated at this point. I verbalized my concern
that she is going to further decline quickly while having hospice discussions. The pt is aware of my concerns that transitioning to comfort and not go forth with resuscitative measures would be appropriate at this time. She had discussions with her
sons and DIL's and stated to then that she is not getting better and that she does not want to suffer and would ultimately get home.
[2024-09-05 16:36] LABS: Urine Squamous Cell 0-2 /LPF (Few)
--- NOTE | 2024-09-05 16:58 | W.PN.UPDATE ---
Update Note
Progress Note Update
Notified by nursing staff that patient and family agree to comfort care measures only.
Will discontinue IV fluids, IV medications.
Will place on comfort care measures only.
--- NOTE | 2024-09-05 17:40 | PTCARENOTE ---
Family requested another hour before administering medications for comfort. Pt is agreeable at this time, however I informed them all that should she become more SOB that I would intervene and initiate comfort measures/medications at that time.
--- NOTE | 2024-09-05 17:58 | HOSPNOTE ---
1630: Met with family and patient at bedside. TERRI Gómez also at bedside providing support. Discussed hospice philosophy and DNR status. Patient confirmed DNR status and that her goal was to go home and be comfortable. Code status updated and
patient to be placed on Comfort Care. Son's Tracebeckie, Dick, Makayla and All were at the bedside to hear the patient express her wish to be comfortable. They are all in agreement. Hospice will reevaluate in the morning to see if she can get
home.
[2024-09-05] MEDS: MORPHINE SULFATE 2 MG IV ×2 (18:05→18:42)
[2024-09-05] MEDS: ATIVAN 0.5 MG SL (18:05)
[2024-09-05] MEDS: LIPITOR PO (18:13)
--- NOTE | 2024-09-05 18:23 | PTCARENOTE ---
Reevaluating pt's comfort level. She remains anxious despite Morphine & Lorazepam SL administration. TT's Hospitalist om-call Dr. Quispe for additional doses.
[2024-09-05] MEDS: ATIVAN 0.5 MG IV (18:43)
[2024-09-05] MEDS: NSS (PRESERVATIVE FREE) 0.25 ML IV (18:44)
--- NOTE | 2024-09-05 18:48 | PTCARENOTE ---
Pt aware she is receiving more Morphine and Lorazepam for her symptoms of dyspnea and anxiety. She is agreeable. The family remains at the bedside. Ongoing supportive care provided to the pt and family
[2024-09-05] MEDS: MORPHINE SULFATE 3 MG IV (19:28)
[2024-09-05] MEDS: MORPHINE 100 IV (20:12)
--- NOTE | 2024-09-05 20:56 | PTCARENOTE ---
patient received from dayshift RN, multiple family members at bedside, patient currently DNR/DNI and has been made comfort care. 3rd PRN morphine given, and morphine gtt started at 2mg. Patient tachypneic and tachycardic. patient also oozing from
her IJ site, per dayshift RN this has been oozing for the last few hours. dressing reinforced as to not disturb patient or family (as this is traumatic looking with all the blood) per family we will not be turning or repositioning her for her
comfort. currently IJ dressing has clots and the bleeding has slowed, i will not change dressing as i do not want to dislodge the present clots that are slowing the blood flow. Oxygen turned down to 6 lm at this time , 2nd comfort cart ordered for
room as there are more family coming. All questions answered, no further needs a this time,
--- NOTE | 2024-09-06 02:00 | PTCARENOTE ---
patient remains comfortable, morphine gtt titrated from 2 to 4 for increased RR and labored breathing. family remains at bedside,
patient was given bed bath and her IJ dressing changed and reinforced, sheets changed as well, currently no bleeding from IJ site. patient oliguric with minimal urine output at this time.
family utilizing swabs for patient comfort, no further needs at this time.
--- NOTE | 2024-09-06 05:53 | PTCARENOTE ---
patient resting comfortably, RR <5, family asleep at bedside, morphine gtt running at 4, dressing to IJ remains CDI with no active bleeding, mottling present in b/l lower ext. large periods of apnea present, mild terminal secretions noted. no
further needs at this time,
--- NOTE | 2024-09-06 07:42 | W.PN.INTV ---
Today's Communication / Plan
Recommendations
Comfort
Assessment
-
Patient is not 79-year-old female who was admitted to the hospital 21 days ago. Patient had an endoscopy procedure performed following which she had a syncopal episode and an unwitnessed fall. Patient was brought to the emergency room and further
imaging was suggestive of a displaced fracture of the lateral clavicle as well as minimal degenerative changes about the shoulder. Patient also noted to have lateral left 3rd through 5th rib fracture.
Patient was noted to have a large right-sided pleural effusion and had a thoracentesis performed on 08/17/24. Fluid study was suggestive of transudate. Patient has been on diuretics since. Over next few days patient had reaccumulation and on
08/21, she had another thoracentesis, right side performed with more than 1 L of transudative fluid removed. Pulmonary consultation was requested for further input. Patient had similar recurrent challenging left-sided pleural effusions in the past
which were managed with an indwelling pleural catheter placement in 2023, subsequently she had a VATS procedure performed and in indwelling pleural catheter was removed.
In view of recurrent right-sided pleural effusion, pulmonary consultation was requested for further input.. She had done well and was recovering and then had temperatures, hypotension, tachycardia necessitating transfer to ICU 09/05/2024-pre certification specialist
consulted for sepsis, shortness of breath, pleural effusion and critical care management 09/05/2024.
Sepsis unresponsive to fluids requiring pressors
Admitted with fall, clavicular fracture
CHF preserved EF
Vasovagal syncope
Recurrent pleural effusion
ANNA
Hyponatremia
Chronic anticoagulation
Vmwwvv-ottdbwoynw-suhejajlob 10.5
Conditions present prior to admission:
Celiac Disease 1975
Takotsobu cardiomyopathy-recovered EF
s/p CARDIOGENIC SHOCK 04/08/05 EF 20% IMPROVED TO 50 % 04/09/[address]
Former smoker >20 pack years, quit 30 years ago
Recurrent pleural effusion
s/p Left Asept pleural catheter placement 11/29/23, removed after admission to [facility] with VATS and pulmonary decortication 01/2024
Small to moderate B/L pleural effusions by CXR 08/15/2024
R thoracentesis 08/17/2024 for 1500 cc - no growth on culture, fluid studies suggestive of transudate
R thoracentesis 08/21/2024 1350cc clear yellow
Hiatal hernia
Lyme disease
Carotid Disease
Hypertension
PANCREATITIS 2005
Irritable bowel disease
CHF
SVT/Paroxysmal atrial fibrillation s/p Cardioversion 06/18/2016
Endometrial polyps s/p D & C, polypectomy
HYPERLIPIDEMIA - MIXED
Fracture right foot/ankle in Feb 2018
Lymphocytic Colitis
Ambulatory dysfunction/Balance issues
Inguinal herniographies xs 2 02/25/2011
Vein removal in [place] inner foot 2020
Bilateral cataract surgeries 2020
History of pancreatitis 2005
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
Plan
Events over the last 24 hours reviewed-patient continuously declined
Goals of care discussion ongoing
Hospice consultation obtained-reviewed with critical care nursing and hospice nursing
Patient will be transitioned to comfort care
Healthcare [facility] will sign off-please call with questions
Diagnostic data:
Chest x-ray 09/01/2024-small to moderate right pleural effusion slightly increased
Chest ultrasound 09/04/2024-moderate right-sided pleural effusion
Chest x-ray 09/04/2024-
Echo 05/18/2023: EF 69%, stage II diastolic dysfunction. Moderately dilated right atrium. Mild to moderate MR. Mild TR. PAP 36 mmHg. Small pericardial effusion
Echo 11/25/2023: EF 55-60%, global longitudinal strain is -14.2, stage III diastolic dysfunction, mild MR, dilated left atrium, aortic sclerosis, normal RV, pulmonary artery systolic pressure 45-50 mmHg
Echo 08/16/2024: EF 60-65%, mild cLVH, stage II diastolic dysfunction, mild MR, severe TR, estimated PAP 70 mmHg, small to moderate pericardial effusion w/o evidence of hemodynamic compromise
Subjective Dataa
Subjective Data
Date of Service:
Date of Service: September 06, 2024
Chief Complaint: Healthcare [facility] Follow Up and Pulmonary Follow Up
Subjective:
patient now comfortable on comfort care
Review of Systems
General: Other ( per HPI)
Neuro: Headache
Objective Data
Data Reviewed
Vital Signs / I&O / Oxygen:
Vital Signs
Temp Pulse Resp BP Pulse Ox
98.1 F 106 8 134/93 78
09/05/24 14:37 09/06/24 04:00 09/06/24 04:00 09/05/24 17:30 09/05/24 18:00
Intake and Output
09/05/24 09/06/24 09/07/24
06:59 06:59 06:59
Intake Total 840 / 870 735.8 / 735.8
Output Total 1000 / 1000 600 / 600
Balance -160 / -130 135.8 / 135.8
SaO2 78
Nasal Cannula flow liters per 4
minute
Physical Exam
General: Respiratory Distress (n) and Comfortable
HEENT: Normocephalic, Anicteric and Other ( temporal wasting)
Cardiovascular: Regular Rhythm
Respiratory: Crackles
GI: Soft and Distended
Neurology: Awake, Alert, No Motor Deficits and Lethargic
Skin: Warm and Cyanosis (n)
Labs/Micro/Reports
Lab Data
09/05/24 06:00
09/05/24 06:00
Microbiology
09/05/24 01:41 Blood/Venous Blood Culture - Preliminary
No Growth in 24 hours- Final report to follow
09/05/24 16:08 Nose Nasal Screen MRSA (PCR) - Final
MRSA not detected - performed by PCR methodology.
09/05/24 09:17 Pleural Fluid Gram Stain - Preliminary
--- NOTE | 2024-09-06 08:18 | PTCARENOTE ---
Pt rec'd in report from night RN at 07:15 seated in chair since 0500, heparin and cardizem titrated -see worklist. Plan discussed at length with Drs. Mckoy, Abelardo, and Sandro. IVF capped at this time, diet adjusted to regular to allow pt to make
GF and vegetarian choices. Pt remains AOx3, slightly anxious, GILLIAM on 4L with sa02 93%, complaining of mild nausea and generalized discomfort, not relieved by Tylenol and Zofran administered by previous RN. Pericardial drain in place, approx 250 mls
punch colored liquid noted in canister. Pt mentioned to MD reoccurring Bartholin's cyst, discussed possible relay associate consult for today. Call carreon and phone next to patient, safe environment maintained.
--- NOTE | 2024-09-06 08:51 | PTCARENOTE ---
Pt rec'd in report from night RN at 07:15, resting comfortably on Morphine gtt at 4 ml/hr, multiple family members at bedside. Oral care provided by son, emotional support provided by RN. New comfort tray ordered for family. No other needs at this
time.
[2024-09-06] MEDS: LEVSIN ORAL DROPS 0.125 MG SL (09:33)
[2024-09-06 09:39] VITALS: BP 81/37
[2024-09-06] MEDS: MORPHINE SULFATE 4 MG IV ×2 (10:07→12:48)
[2024-09-06] MEDS: ROBINUL 0.2 MG IV (10:08)
[2024-09-06] MEDS: ATIVAN 1 MG SL (11:04)
--- NOTE | 2024-09-06 11:14 | PN.CDI ---
CDI
- -
CDI:
Physician Documentation Request
Admit Date: 08/15/24 18:37
Dear Doctor Do,
09/04 DIAPHRAGM BUILDER note indicated patient became febrile followed by hypotension. Bolus given eventually Levophed started and transferred to the ICU,
Web Production Assistant consult and states 'sepsis unresponsive to fluids requiring pressors.'
09/05 hospitalist progress note states 'Shock, suspect cardiogenic shock'
09/05 urine culture positive for Escherichia coli (previously neg), 09/05 blood culture + staphylococcus aureus.
Please clarify which of the following is the most likely etiology of the above symptoms and treatment rendered:
Septic shock
Cardiogenic shock
Other
Use of terms such as suspected, likely, concern for, or probable (associated with a specific diagnosis that is being evaluated, monitored, or treated as if it exists) are acceptable and can be coded in the inpatient setting, when documented at the
time of discharge.
Thank you,
Leonor Pugh RN, BSN
CDI Specialist
tiger text
Please use your independent medical judgment in providing your response.
--- NOTE | 2024-09-06 12:05 | HOSPNOTE ---
Spoke with family and emotional support provided. Patient is actively dying, is on a morphine drip, got the ativan changed to IV patient was given a dose of Robinol for excessive secretions. We will continue to monitor and support. Patient will
remain on comfort.
--- NOTE | 2024-09-06 12:37 | PTCARENOTE ---
Pt to be transferred to room 2139, report given to Lynsey MURRAY, family updated.
--- NOTE | 2024-09-06 13:30 | PTCARENOTE ---
Patient found with no spontaneous heart sounds or respirations; family at bedside; emotional support provided; Dr. Byrd notified.
--- NOTE | 2024-09-06 14:01 | W.PN.DEATH ---
Pronouncement of
-
Called to see patient to pronounce.
No spontaneous heart tones or respirations noted.
Patient not responsive to verbal stimuli.
Patient is pronounced .
Time of : 13:30
Date of : 09/06/24
Cause of : Acute hypoxic respiratory failure
Family Notified: Yes
--- NOTE | 2024-09-06 14:38 | W.DCSUMMARY ---
Discharge Summary
Discharge Data
Date of Admission: 08/15/24
Date of Discharge: 09/06/24
-
Pending Results: No
Hospital Course
Discharge diagnosis:
Acute hypoxic respiratory failure
Chronic right pleural effusions due to hypoalbuminemia
History of chronic left pleural effusion status post admission to [place] with pulmonary decortication 01/2024
Acute on chronic congestive heart failure with a preserved ejection fraction
Acute kidney injury
Cardiorenal syndrome
Metabolic acidosis
Septic shock
Acute urinary tract infection
Peripheral artery disease
Acute on chronic left foot ischemia
Left heel wound
Syncope, likely vasovagal
Left clavicle fracture
Left rib fractures
Severe constipation
Ingested capsule endoscopy
Left cephalic vein superficial thrombus
Anemia of chronic disease
Hyponatremia
Paroxysmal atrial fibrillation on Eliquis
Hypothyroidism
Severe vitamin D deficiency
Elevated troponin from nonischemic myocardial injury
Celiac disease
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
Hospital course:
79-year-old female with a past medical history of recurrent left-sided pleural effusion status post admission to [place] with VATS and pulmonary decortication 01/2024, chronic right pleural effusion due to hypoalbuminemia, CHF, atrial fibrillation on
Eliquis, GI bleed, anemia, PAD, and celiac disease who was initially admitted to the hospital for vasovagal syncope after undergoing a bowel prep for capsule endoscopy. She suffered a left clavicle fracture as well as multiple left rib fractures
due to her collapse from her syncope. She had severe constipation that required an enema and aggressive bowel regimen.
Patient has recurrent right-sided pleural effusions, due to hypoalbuminemia and CHF. She had a total of 3 thoracentesis. She was seen in conjunction with pulmonology, cardiology and nephrology, for CHF exacerbation and cardiorenal syndrome. She
was diuresed with IV Bumex. Diuresis was limited by hypotension.
Patient also has chronic left foot ischemia due to peripheral artery disease. She was seen in conjunction with vascular surgery. Her renal status was fragile, and patient/family did not want to undergo angiogram for risk of worsening renal failure
requiring dialysis.
Despite aggressive diuresis, patient went into worsening respiratory failure from her CHF exacerbation. She also developed septic shock from an acute urinary tract infection. She was treated with IV antibiotics and IV Levophed. Patient's poor
prognosis was conveyed to her family. Patient and family agreed to transition to comfort care measures only on 09/06/2024. Patient peacefully on 09/06/2024 at 13:30. Family at bedside, condolences were offered.
Discharge Plan
-
Patient Disposition:
Date/Time
Date/Time: 09/06/24 13:30
Discharge Date and Time
Discharge Date/Time: 09/06/24 13:30
Print Language: LATVIAN
--- NOTE | 2024-09-06 15:23 | CM ---
Patient at 13:30 on this date, 09/06/24.
== END 2024-09-06 13:30 | disposition expired | DRG 843 ==
LOC: 2 NORTH 18:37
PROVIDERS: Hospitalist; Internal Medicine; Internal Medicine Cardiovascular Disease; Nurse Practitioner; Nurse Practitioner Family; Radiology Vascular & Interventional Radiology; Registered Nurse; ADMITTING PHYSICIAN Internal Medicine; ATTENDING PHYSICIAN Family Medicine; CONSULT PHYSICIAN Internal Medicine; CONSULT PHYSICIAN Internal Medicine Critical Care Medicine; CONSULT PHYSICIAN Nurse Practitioner Gerontology; CONSULT PHYSICIAN Orthopaedic Surgery; EMERGENCY PHYSICIAN Emergency Medicine; FAMILY PHYSICIAN Internal Medicine; OTHER PHYSICIAN Internal Medicine Cardiovascular Disease; OTHER PHYSICIAN Surgery Vascular Surgery
PROC: 4B02XSZ Measurement of Cardiac Pacemaker, External Approach (ICD-10-PCS; 2024-08-16)
PROC: 0W993ZZ Drainage of Right Pleural Cavity, Percutaneous Approach (ICD-10-PCS; 2024-08-17)
PROC: 30233N1 Transfusion of Nonautologous Red Blood Cells into Peripheral Vein, Percutaneous Approach (ICD-10-PCS; 2024-08-18)
PROC: 05HM33Z Insertion of Infusion Device into Right Internal Jugular Vein, Percutaneous Approach (ICD-10-PCS; 2024-09-05)
DX: E88.09 Other disorders of plasma-protein metabolism, not elsewhere classified (principal); A41.9 Sepsis, unspecified organism; L89.613 Pressure ulcer of right heel, stage 3; J96.01 Acute respiratory failure with hypoxia; I50.33 Acute on chronic diastolic (congestive) heart failure; R65.21 Severe sepsis with septic shock; I13.0 Hypertensive heart and chronic kidney disease with heart failure and stage 1 through stage 4 chronic kidney disease, or unspecified chronic kidney disease; M80.0AXA Age-related osteoporosis with current pathological fracture, other site, initial encounter for fracture; J91.8 Pleural effusion in other conditions classified elsewhere; N17.9 Acute kidney failure, unspecified; E87.20 Acidosis, unspecified; N39.0 Urinary tract infection, site not specified; I82.612 Acute embolism and thrombosis of superficial veins of left upper extremity; E87.1 Hypo-osmolality and hyponatremia; I48.19 Other persistent atrial fibrillation; K76.6 Portal hypertension; E46 Unspecified protein-calorie malnutrition; I47.19 Other supraventricular tachycardia; I48.92 Unspecified atrial flutter; R64 Cachexia; L97.429 Non-pressure chronic ulcer of left heel and midfoot with unspecified severity; I5A Non-ischemic myocardial injury (non-traumatic); R18.8 Other ascites; I42.9 Cardiomyopathy, unspecified; Z51.5 Encounter for palliative care; Z66 Do not resuscitate; N18.9 Chronic kidney disease, unspecified; D63.1 Anemia in chronic kidney disease; E03.9 Hypothyroidism, unspecified; K90.0 Celiac disease; S42.032A Displaced fracture of lateral end of left clavicle, initial encounter for closed fracture; E78.5 Hyperlipidemia, unspecified; W18.39XA Other fall on same level, initial encounter; I95.1 Orthostatic hypotension; R91.1 Solitary pulmonary nodule; K31.89 Other diseases of stomach and duodenum; E86.0 Dehydration; S80.02XA Contusion of left knee, initial encounter; S80.01XA Contusion of right knee, initial encounter; J43.9 Emphysema, unspecified; I70.244 Atherosclerosis of native arteries of left leg with ulceration of heel and midfoot; I27.20 Pulmonary hypertension, unspecified; I25.10 Atherosclerotic heart disease of native coronary artery without angina pectoris; K59.00 Constipation, unspecified; I08.0 Rheumatic disorders of both mitral and aortic valves; Z95.0 Presence of cardiac pacemaker; Z68.22 Body mass index [BMI] 22.0-22.9, adult; Z87.891 Personal history of nicotine dependence; Z87.440 Personal history of urinary (tract) infections; Z87.441 Personal history of nephrotic syndrome; Z79.01 Long term (current) use of anticoagulants
CPT/HCPCS: 32555; 36556; 36600; 70450; 71045; 71046; 72070; 72100; 73030; 73502; 73564; 74018; 76604; 76700; 76705; 76770; 76937; 77001; 80048; 80053; 80076; 81003; 81015; 82042; 82150; 82248; 82306; 82330; 82570; 82607; 82728; 82746; 82805; 82945; 82962; 83521; 83540; 83550; 83605; 83615; 83735; 83880; 83935; 83986; 84100; 84155; 84156; 84157; 84300; 84439; 84443; 84478; 84484; 85014; 85018; 85025; 85027; 85610; 86850; 86900; 86901; 86920; 86922; 87015; 87040; 87070; 87077; 87086; 87150; 87186; 87205; 87641; 88112; 88305; 89051; 93005; 93288; 93306; 93922; 93925; 93971; 94640; 96374; 96375; 97163; 97167; 97530; 97535; 99285; P9016; P9047